=== PATIENT | male | born 1960 | race Two or more races ===

== ENCOUNTER → 2020-11-07 | Outpatient (BNVA) | payer MEDICARE, MEDICAID, SELFPAY | PROVIDERS: PCP Internal Medicine; Visit Provider Surgery | DX: D17.1 Benign lipomatous neoplasm of skin and subcutaneous tissue of trunk (principal) | CPT/HCPCS: 99202 ==

== ENCOUNTER 2020-11-21 07:38 | Outpatient (REF) | payer MEDICARE, MEDICAID, SELFPAY ==
[2020-11-21 07:22] VITALS: BP 179/91; PULSE 87; TEMP 37.2; O2SAT 94; BMI 24.4
--- NOTE | 2020-11-21 09:41 | MHC.SHP ---
Pre-Procedural Eval Section A The patient is an INPATIENT: No Changes since office visit: Yes Patient answered all questions; No Cold of Flu in the past 2 weeks, No New Medical Problems and No Changes in Medication The History & Physical has been completed within 30 days and I have reviewed it.: Yes Section B Chief Complaint: Lipoma of abdominal wall Allergies: Allergies Allergy/AdvReac Type Severity Reaction Status Date / Time levofloxacin [From Levaquin] Allergy Severe Swelling Verified 11/07/20 11:00 in the Joints ciprofloxacin [From Cipro] Allergy Mild Unknown Verified 11/07/20 11:00 Plan Diagnosis/Plan: Unchanged I have reviewed the history and physical and performed a pertinent physical examination on my patient. No changes have occurred unless specified.
--- NOTE | 2020-11-21 09:41 | W.PM.OPN ---
Operative Note Operative Note Date of Service: 11/21/20 Narrative: Preoperative diagnosis: Lipoma x4 left abdomen Postoperative diagnosis: Same Procedure: Excision of lipoma x4 left abdomen Surgeon: Arnaud Kamara MD Anesthesia: Local Indications for procedure: A 60-year-old male patient with for palpable soft tissue masses located in the left abdomen laterally which on palpation appear consistent with lipomas. Operative findings: Patient was found to have multiple soft tissue masses consistent with lipomas the largest measuring approximately 4 cm, the remaining 3 measuring 2 cm each. Specimen: Lipoma x4 left abdomen Estimated blood loss: 5 mL Complications: None Procedure details: Patient was brought to the minor surgery suite and placed in a right lateral decubitus position. Informed consent was confirmed in the site of surgery confirmed by the patient in the left abdomen. Skin was prepped with Betadine and draped in sterile fashion. Local anesthesia consisting of 1% lidocaine with epinephrine was infiltrated around each of the lesions. Starting from the top lesion a transverse incision was created with the 15 blade carried out through subcutaneous tissue. Blunt dissection was then used to dissect the lipoma from the surrounding subcutaneous tissue. Attention was then directed to the 2nd through 4th lipomas in each was infiltrated with local anesthesia, incised with the 15 blade, and a lipoma dissected free with a hemostat. Pressure was held on all 4 incisions to maintain hemostasis. Subcutaneous tissue was reapproximated using interrupted 4 0 Polysorb suture. Skin was then closed in all incisions using a subcuticular 4 0 Polysorb suture. Steri-Strips 2 x 2 gauze and Tegaderm were then applied. Patient tolerated the procedure well. He was discharged home in stable condition.
--- NOTE | 2020-11-21 09:45 | PM.OP ---
Brief Operative Note Date of Service: 11/21/20 Pre-op diagnosis: Lipoma x4 left abdomen Post-op diagnosis: same Procedure: Excision of lipoma x4 left abdomen Implants: None Surgeon: Arnaud Kamara MD Anesthesia: local Estimated blood loss (mL): 5 Pathology: other (Lipoma x4 left abdomen) Condition: stable Disposition: other (Home)
== END 2020-11-21 07:39 | disposition home or self-care (01) ==
LOC: HO.MS 07:38
PROVIDERS: PCP Internal Medicine; Visit Provider Surgery
PROC: (CPT 22903; principal; 2020-11-21 08:00)
DX: D17.5 Benign lipomatous neoplasm of intra-abdominal organs (principal); J44.9 Chronic obstructive pulmonary disease, unspecified; Z88.1 Allergy status to other antibiotic agents
CPT/HCPCS: 22903; 22902 ×3; 88304

== ENCOUNTER → 2020-11-30 09:43 | Outpatient (BNVA) | payer MEDICARE, MEDICAID, SELFPAY | PROVIDERS: PCP Internal Medicine; Visit Provider Surgery | DX: D17.1 Benign lipomatous neoplasm of skin and subcutaneous tissue of trunk (principal) | CPT/HCPCS: 99212 ==

== ENCOUNTER → 2020-12-10 10:37 | Outpatient (BNVA) | payer MEDICARE, MEDICAID, SELFPAY | PROVIDERS: PCP Internal Medicine; Visit Provider Hospitalist | DX: J43.2 Centrilobular emphysema (principal); R06.00 Dyspnea, unspecified; M54.5 Low back pain; G89.29 Other chronic pain | CPT/HCPCS: 99212 ==

== ENCOUNTER → 2021-03-05 13:01 | Outpatient (BNVA) | payer MEDICARE, MEDICAID, SELFPAY | PROVIDERS: PCP Internal Medicine; Visit Provider Surgery | DX: D17.9 Benign lipomatous neoplasm, unspecified (principal) | CPT/HCPCS: 99212 ==

== ENCOUNTER 2021-03-26 07:45 | Outpatient (REF) | payer MEDICARE, MEDICAID, SELFPAY ==
[2021-03-26 07:52] VITALS: BMI 22.4
[2021-03-26 07:53] VITALS: BP 122/90; PULSE 87; RESP 16; TEMP 36.6; O2SAT 94
[2021-03-26 08:35] VITALS: BP 133/68; PULSE 95; RESP 16; O2SAT 96
--- NOTE | 2021-04-10 16:18 | P.OP_ITS ---
Operative Note Operative Note Date of Service: 03/26/21 Narrative: Preoperative diagnosis: Lipoma left upper back Postoperative diagnosis: Same Procedure: Excision of lipoma left upper back Surgeon: Arnaud Kamara MD Security Sales Consultant: No physician Anesthesia: Local Indications for procedure: 60-year-old male with a previous history of lipomas presenting with enlarging lipoma of the left upper back. He also reported of the lipoma of the left lateral thigh but the time of surgery was not able to feel it any further. Operative findings: 3 cm round lipoma of the left upper back Specimen: Lipoma left upper back Estimated blood loss: 2 mL Complications: None Procedure details: Patient was brought to the minor surgery suite and placed in a right lateral decubitus position. The site of surgery was confirmed in the left upper back. After assuring informed consent the skin was prepped with Betadine and draped in a sterile fashion. Local anesthesia was infiltrated around the lipoma. Transverse incision was then made with a scalpel carried out through subcutaneous tissue. The lipoma was then dissected free using a combination of sharp and blunt dissection. Lipoma was removed and sent to pathology for further examination. Dermis and subcutaneous tissue was then reapproximated using interrupted 3-0 Polysorb sutures. Skin was closed using a running subcuticular 4 0 Polysorb suture. Steri-Strips, 2 x 2 gauze and Tegaderm were then applied. The patient tolerated the procedure well. He was discharged to home in stable condition.
== END 2021-03-26 07:46 | disposition home or self-care (01) ==
LOC: HO.MS 07:45
PROVIDERS: PCP Internal Medicine; Visit Provider Surgery
PROC: (CPT 21931; principal; 2021-03-26 08:00)
DX: D17.1 Benign lipomatous neoplasm of skin and subcutaneous tissue of trunk (principal); J44.9 Chronic obstructive pulmonary disease, unspecified; Z90.49 Acquired absence of other specified parts of digestive tract
CPT/HCPCS: 21931; 88304

== ENCOUNTER 2021-06-12 09:00 | Outpatient (REF) | payer MEDICARE, MEDICAID, SELFPAY ==
--- NOTE | 2021-06-12 10:21 | PFT_ITS ---
FLOWS: FEV1 of 30% of predicted at 0.87 L. FVC 64% of predicted at 2.44 L. FEV1 to FVC ratio of 0.35. Positive bronchodilator response. LUNG VOLUMES: Total lung capacity 111% of predicted at 6.43 L. Residual volume 213% of predicted at 4.07 L. Slow vital capacity 61% of predicted at 2.36 L. Expiratory reserve volume 58% of predicted at 0.60 L. Diffusion capacity is moderately decreased. IMPRESSION: Very severe obstructive ventilatory defect with positive bronchodilator response. Increased residual volume suggests air trapping. Decreased diffusion capacity suggests emphysema. MD XUAN Boykin/MODL / [id number]
== END 2021-06-12 09:01 | disposition home or self-care (01) ==
LOC: HO.RESP 09:00
PROVIDERS: PCP Internal Medicine; Visit Provider Hospitalist
DX: J43.2 Centrilobular emphysema (principal); M54.5 Low back pain; R91.8 Other nonspecific abnormal finding of lung field; G89.29 Other chronic pain
CPT/HCPCS: 94060; 94727; 94729; 99212

== ENCOUNTER → 2021-12-03 10:10 | Outpatient (BNVA) | payer MEDICARE, MEDICAID, SELFPAY | PROVIDERS: PCP Internal Medicine; Visit Provider Surgery | DX: D17.1 Benign lipomatous neoplasm of skin and subcutaneous tissue of trunk (principal) | CPT/HCPCS: 99212 ==

== ENCOUNTER 2021-12-30 12:37 | Outpatient (REF) | payer MEDICARE, MEDICAID, SELFPAY ==
--- NOTE | ~2021-12-30 | US_ITS ---
EXAMINATION: US CHEST CLINICAL INFORMATION: Soft tissue swelling in the midline over the spine. COMPARISON: None TECHNIQUE: Routine imaging over the bony prominences was performed where patient complains of mass. FINDINGS: Limited ultrasound imaging reveals no focal mass or fluid collection. The bony prominence from the patient is likely prominent spinous process. US/US chest IMPRESSION: No focal mass or fluid collection seen adjacent to the prominent spinous process where patient complains of pain and mass.
== END 2021-12-30 12:38 | disposition home or self-care (01) ==
LOC: HO.US 12:37
PROVIDERS: PCP Internal Medicine; Visit Provider Surgery
DX: D17.1 Benign lipomatous neoplasm of skin and subcutaneous tissue of trunk (principal)
CPT/HCPCS: 76604

== ENCOUNTER → 2022-01-10 11:41 | Outpatient (BNVA) | payer MEDICARE, MEDICAID, SELFPAY | PROVIDERS: PCP Internal Medicine; Visit Provider Surgery | DX: D17.1 Benign lipomatous neoplasm of skin and subcutaneous tissue of trunk (principal) | CPT/HCPCS: 99212 ==

== ENCOUNTER 2022-01-22 09:29 | Outpatient (REF) | payer MEDICARE, MEDICAID, SELFPAY | END 2022-01-22 09:30 | disposition home or self-care (01) | LOC: CF 09:29 | PROVIDERS: PCP Internal Medicine; Visit Provider Hospitalist | DX: J40 Bronchitis, not specified as acute or chronic (principal); J43.2 Centrilobular emphysema; R06.00 Dyspnea, unspecified; R91.8 Other nonspecific abnormal finding of lung field; Z79.52 Long term (current) use of systemic steroids; Z87.891 Personal history of nicotine dependence | CPT/HCPCS: 87070; 87205; 99212 ==

== ENCOUNTER 2022-01-30 07:00 | Day surgery (SDC) | payer MEDICARE, MEDICAID, SELFPAY ==
--- NOTE | 2022-01-29 09:49 | HO.ANESPROP2 ---
Documented by User: Lara Washburn NP 01/29/22 09:58 HPI - Anesthesia Eval Consult details Narrative: 61yo M for Bronchoscopy Fiberoptic PMFSH Active Problems Active Problems: All Active Problems (Updated 01/22/22 @ 10:14 by Paulino Ba MD) Bronchitis (Acute) Lipoma of back (Acute) Pulmonary nodules (Acute) Lipoma (Acute) Back pain (Acute) Dyspnea (Acute) Lipoma of abdominal wall (Acute) COPD (chronic obstructive pulmonary disease) (Acute) Past Medical History Medical History (Updated 01/30/22 @ 07:32 by Teresa Dodson RN) Back pain Bronchitis COPD (chronic obstructive pulmonary disease) Dyspnea FH: bowel obstruction Pulmonary nodules Family History Family History Mother History of lung cancer Surgical History Surgical History History of hernia repair History of lung biopsy History of partial colectomy Social History Social History Alcohol intake: never Patient Tobacco Use Status: Former Tobacco user Tobacco use type: Cigarette Years Smoked: 15 years Have you been hit, kicked, punched, or otherwise hurt by someone within the past year? If so, by whom?: No Are you DNR?: No Advance Directives: No Advance Directives Information Provided: Yes Recently lost weight without trying: No Nutrition Risks: No Nutritional Risk Meds Allergies Allergy/AdvReac Type Severity Reaction Status Date / Time ciprofloxacin [From Cipro] Allergy Severe Redness Verified 01/22/22 09:44 on Face levofloxacin [From Levaquin] Allergy Severe Swelling Verified 01/22/22 09:44 in the Joints amoxicillin [From Amoxil] AdvReac Mild upset Verified 01/30/22 07:16 stomach Home Medications Medication Instructions Recorded Confirmed Last Taken Type Ca 600 mg-D3 20 mcg-mag oxide 50 tab PO 11/07/20 01/10/22 Unknown History eq-Lh-awygzv-manganese-boron tablet (Calcium 600-D3 Plus (mag-zinc)) cyclobenzaprine 10 mg tablet 10 mg PO BEDTIME 11/07/20 01/10/22 Unknown History gabapentin 400 mg capsule mg PO 11/07/20 01/10/22 Unknown History oxycodone 10 mg tablet mg PO 11/07/20 01/10/22 Unknown History pantoprazole 40 mg tablet,delayed 40 mg PO DAILY 11/07/20 01/10/22 Unknown History release betamethasone, augmented 0.05 % appl TOPICAL 06/12/21 01/10/22 Unknown History topical cream denosumab 60 mg/mL subcutaneous mg SUBCUT 06/12/21 01/10/22 Unknown History syringe (Prolia) docusate sodium 100 mg capsule 200 mg PO BID PRN 06/12/21 01/10/22 Unknown History lorazepam 1 mg tablet 1 mg PO TID PRN 06/12/21 01/10/22 Unknown History naproxen 500 mg tablet 500 mg PO BID PRN 06/12/21 01/10/22 Unknown History nystatin 100,000 unit/mL oral 5 ml PO QID 06/12/21 01/10/22 Unknown History suspension methadone 10 mg tablet 10 mg PO tab 12/03/21 01/10/22 Unknown History azithromycin 250 mg tablet mg PO 3XW tab 01/22/22 Unknown History cefdinir 300 mg capsule 300 mg PO BID 01/22/22 Unknown History doxycycline hyclate 100 mg capsule 100 mg PO BID 01/22/22 Unknown History prednisone 10 mg tablet 10 mg PO BID 01/22/22 Unknown History testosterone 20.25 mg/1.25 gram 2 pump TOPICAL DAILY 01/22/22 Unknown History (1.62 %) transdermal gel pump Exam Exam Date and Time: January 29, 2022 0949 Narrative Narrative: PFT 05/2021 IMPRESSION:? Very severe obstructive ventilatory defect with positive bronchodilator response.? Increased residual volume suggests air trapping.? Decreased diffusion capacity suggests emphysema. Assessment and Plan Assessment Anesthesia Assessment: Chart Reviewed Documented by User: Cl Caldwell MD 01/30/22 08:28 [facility] [place] Past Medical History Medical History (Updated 01/30/22 @ 07:32 by Teresa Dodson RN) Back pain Bronchitis COPD (chronic obstructive pulmonary disease) Dyspnea FH: bowel obstruction Pulmonary nodules Functional capacity: independent ambulation Family History Family History Mother History of lung cancer Family history of problems with anesthesia: No Surgical History Surgical History History of hernia repair History of lung biopsy History of partial colectomy History of Problems with Anesthesia: No Social History Social History Alcohol intake: never Patient Tobacco Use Status: Former Tobacco user Tobacco use type: Cigarette Years Smoked: 15 years Have you been hit, kicked, punched, or otherwise hurt by someone within the past year? If so, by whom?: No Are you DNR?: No Advance Directives: No Advance Directives Information Provided: Yes Recently lost weight without trying: No Nutrition Risks: No Nutritional Risk Meds Allergies Allergy/AdvReac Type Severity Reaction Status Date / Time ciprofloxacin [From Cipro] Allergy Severe Redness Verified 01/22/22 09:44 on Face levofloxacin [From Levaquin] Allergy Severe Swelling Verified 01/22/22 09:44 in the Joints amoxicillin [From Amoxil] AdvReac Mild upset Verified 01/30/22 07:16 stomach Home Medications Medication Instructions Recorded Confirmed Last Taken Type Ca 600 mg-D3 20 mcg-mag oxide 50 tab PO 11/07/20 01/10/22 Unknown History ke-Gt-qrjtgl-manganese-boron tablet (Calcium 600-D3 Plus (mag-zinc)) cyclobenzaprine 10 mg tablet 10 mg PO BEDTIME 11/07/20 01/10/22 Unknown History gabapentin 400 mg capsule mg PO 11/07/20 01/10/22 Unknown History oxycodone 10 mg tablet mg PO 11/07/20 01/10/22 Unknown History pantoprazole 40 mg tablet,delayed 40 mg PO DAILY 11/07/20 01/10/22 Unknown History release betamethasone, augmented 0.05 % appl TOPICAL 06/12/21 01/10/22 Unknown History topical cream denosumab 60 mg/mL subcutaneous mg SUBCUT 06/12/21 01/10/22 Unknown History syringe (Prolia) docusate sodium 100 mg capsule 200 mg PO BID PRN 06/12/21 01/10/22 Unknown History lorazepam 1 mg tablet 1 mg PO TID PRN 06/12/21 01/10/22 Unknown History naproxen 500 mg tablet 500 mg PO BID PRN 06/12/21 01/10/22 Unknown History nystatin 100,000 unit/mL oral 5 ml PO QID 06/12/21 01/10/22 Unknown History suspension methadone 10 mg tablet 10 mg PO tab 12/03/21 01/10/22 Unknown History azithromycin 250 mg tablet mg PO 3XW tab 01/22/22 Unknown History cefdinir 300 mg capsule 300 mg PO BID 01/22/22 Unknown History doxycycline hyclate 100 mg capsule 100 mg PO BID 01/22/22 Unknown History prednisone 10 mg tablet 10 mg PO BID 01/22/22 Unknown History testosterone 20.25 mg/1.25 gram 2 pump TOPICAL DAILY 01/22/22 Unknown History (1.62 %) transdermal gel pump Exam Airway Mallampati Class: II TM Dist: >3cm Neck ROM: Full Denture: Lower Partial: Upper Loose/Missing/Broken Teeth: Yes (Chipped upper teeth ) Heart: S1 S2 Lungs: b/l breath sounds Assessment and Plan Assessment Anesthesia Assessment: Anesthesia Plan Discussed Final Anesthetic Review Family History of Problems with Anesthesia: No History of Problems with Anesthesia: No NPO: Yes ASA Class: III Final Preanesthetic Review: Meds/Allgs Chart Reviewed, Consent Obtained/Reviewed and Anes Risks/Benef Reviewed Patient Risk: High Procedure Risk: Intermediate Anesthetic Plan Anesthetic Plan: GA Disposition: Standard PACU
[2022-01-30 06:04] VITALS: BMI 22.3
[2022-01-30 07:01] VITALS: BP 133/89; PULSE 101; RESP 19; TEMP 36.3; O2SAT 97
[2022-01-30] MEDS: Lactated Ringers 1,000 ML 100 ML IVCONT (07:34)
--- NOTE | 2022-01-30 07:54 | MHC.SHP ---
Pre-Procedural Eval Section A Date of Service: 01/30/22 The patient is an INPATIENT: No Changes since office visit: No Cold of Flu in the past 2 weeks, No New Medical Problems, No Changes in Medication and No Patient answered all questions The History & Physical has been completed within 30 days and I have reviewed it.: Yes Section B Chief Complaint: Other nonspecific abnormal finding of lung field Allergies: Allergies Allergy/AdvReac Type Severity Reaction Status Date / Time ciprofloxacin [From Cipro] Allergy Severe Redness Verified 01/22/22 09:44 on Face levofloxacin [From Levaquin] Allergy Severe Swelling Verified 01/22/22 09:44 in the Joints amoxicillin [From Amoxil] AdvReac Mild upset Verified 01/30/22 07:16 stomach Plan I have reviewed the history and physical and performed a pertinent physical examination on my patient. No changes have occurred unless specified.
[2022-01-30 08:45] VITALS: BP 129/79; PULSE 126; RESP 20; TEMP 36.5; O2SAT 100
[2022-01-30 08:50] VITALS: BP 125/104; PULSE 121; RESP 18; O2SAT 92
[2022-01-30 08:55] VITALS: BP 109/71; PULSE 122; RESP 18; O2SAT 92
--- NOTE | 2022-01-30 08:57 | PM.OP ---
Brief Operative Note Date of Service: 01/30/22 Pre-op diagnosis: Bronchitis Post-op diagnosis: same Procedure: bronchoscopy with brushings and washings Surgeon: Paulino Ba MD Anesthesia: GLMA Was an Junior Marketing Associate used for this Procedure?: No Estimated blood loss (mL): 0 Condition: stable Disposition: same day
[2022-01-30 09:00] VITALS: BP 110/78; PULSE 122; RESP 18; TEMP 36.7; O2SAT 94
[2022-01-30 09:12] VITALS: PULSE 119; RESP 18; O2SAT 93
--- NOTE | 2022-01-30 10:30 | OP_ITS ---
SURGEON: Paulino Ba MD PREOPERATIVE DIAGNOSIS: Bronchitis with significant mucus plugging and shortness of breath. POSTOPERATIVE DIAGNOSIS: Bronchitis. PROCEDURE PERFORMED: Bronchoscopy washings and brushings. ESTIMATED BLOOD LOSS: COMPLICATIONS: ANESTHESIA: LMA. ASSISTANTS: None. SPECIMENS: DESCRIPTION OF PROCEDURE: After the patient was adequately sedated with LMA in place, the flexible digital bronchoscope was inserted via the LMA to the level of the larynx. The larynx appeared to be inflamed. Red nodes were inflamed. The vocal cords moved symmetrically to the midline. After instilling additional lidocaine, the bronchoscope was then navigated to the level of the trachea. 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 The patient also had almost like a dislocated tracheal ring on the right side, which is of no significance. After instilling additional lidocaine, the bronchoscope was navigated to the entire tracheobronchial tree without any endobronchial lesions or masses. The patient did have some evidence of erythema suggesting of bronchitis with some mucus plugs bilaterally right more than left. [place] was introduced into the right lower lobe, where a micro brushings were then collected for Gram stain and culture. Subsequent to that, bronchial washings were collected from every segment removing plugs primarily on the right side and also on the left upper lobe to some degree. The washings were collected and sent for both microbiology and cytology. The airways were cleaned out. The patient tolerated the procedure well. The bronchoscope was then removed. The total endoscopic time approximately about 10 minutes. The patient tolerated the procedure well. Vital signs were stable. Patient was liberated from the LMA and ultimately he is awake, comfortable at this time. INTERPRETATION: Successful bronchoscopy with brushings and washings. MD MESERET Ellsworth/MODL / [id number]
== END 2022-01-30 09:28 | disposition home or self-care (01) ==
PROVIDERS: PCP Internal Medicine; Visit Provider Hospitalist
PROC: 0BJ08ZZ Inspection of Tracheobronchial Tree, Via Natural or Artificial Opening Endoscopic (ICD-10-PCS; CPT 31622; principal; 2022-01-30 08:00)
DX: J40 Bronchitis, not specified as acute or chronic (principal); R06.00 Dyspnea, unspecified; J44.9 Chronic obstructive pulmonary disease, unspecified; R91.8 Other nonspecific abnormal finding of lung field; Z87.01 Personal history of pneumonia (recurrent); Z99.81 Dependence on supplemental oxygen; Z79.899 Other long term (current) drug therapy; Z88.1 Allergy status to other antibiotic agents; Z87.891 Personal history of nicotine dependence
CPT/HCPCS: 31623; 87071; 87102; 87116; 87205; 88112; J0171; J2250; J2370; J2405; J3010

== ENCOUNTER → 2022-02-19 09:32 | Outpatient (BNVA) | payer MEDICARE, MEDICAID, SELFPAY | PROVIDERS: PCP Internal Medicine; Visit Provider Hospitalist | DX: J44.9 Chronic obstructive pulmonary disease, unspecified (principal); J45.50 Severe persistent asthma, uncomplicated; R91.8 Other nonspecific abnormal finding of lung field; Z79.899 Other long term (current) drug therapy | CPT/HCPCS: 99212 ==

== ENCOUNTER → 2022-03-20 09:50 | Outpatient (BNVA) | payer MEDICARE, MEDICAID, SELFPAY | PROVIDERS: PCP Internal Medicine; Visit Provider Hospitalist | DX: R91.8 Other nonspecific abnormal finding of lung field (principal); R06.00 Dyspnea, unspecified; R10.9 Unspecified abdominal pain; J40 Bronchitis, not specified as acute or chronic; J44.9 Chronic obstructive pulmonary disease, unspecified; J45.50 Severe persistent asthma, uncomplicated | CPT/HCPCS: 99212 ==

== ENCOUNTER → 2022-04-09 10:47 | Outpatient (BNVA) | payer MEDICARE, MEDICAID, SELFPAY | PROVIDERS: PCP Internal Medicine; Visit Provider Hospitalist | DX: R06.00 Dyspnea, unspecified (principal); J44.9 Chronic obstructive pulmonary disease, unspecified; J45.50 Severe persistent asthma, uncomplicated; R91.8 Other nonspecific abnormal finding of lung field; R10.9 Unspecified abdominal pain | CPT/HCPCS: 99212 ==

== ENCOUNTER 2022-07-16 10:57 | Outpatient (REF) | payer MEDICARE, MEDICAID, SELFPAY ==
[2022-07-16 11:17] LABS: MANUAL DIFF FLAG NO
[2022-07-16 11:41] LABS: Basophils Absolute Auto 0.1 X10*3/uL (0.0-0.2); Basophils Percent Auto 0.8 % (0-2); Eosinophils Absolute Auto 0.1 X10*3/uL (0.0-0.4); Eosinophils Percent Auto 1.2 % (0-4); Hematocrit 52.2 % (42.0-52.0); Hemoglobin 17.2 g/dl (14.0-18.0); Imm Gran Abs Auto 0.03 X10*3/uL (0.00-0.03); Imm Gran Pct Auto 0.3 % (0.0-0.4); Lymphocytes Absolute Auto 1.5 X10*3/uL (1.2-4.9); Lymphocytes Percent Auto 14.5 % (20-40); Mean Corpuscular Hemoglobin 30.8 pg (27.0-33.0); Mean Corpuscular Volume 93.4 fL (80.0-98.0); Mean Platelet Volume 9.7 fL (9.4-12.4); Monocytes Absolute Auto 0.6 X10*3/uL (0.1-1.2); Monocytes Percent Auto 5.6 % (2-11); Neutrophils Percent Auto 77.6 % (45-73); Platelet Count 351 X10*3/uL (160-400); Red Blood Count 5.59 X10*6/uL (4.60-5.80); Red Cell Distribution Width 13.7 % (11.0-16.0); White Blood Count 10.3 X10*3/uL (4.8-10.8)
[2022-07-16 12:28] LABS: Erythrocyte Sedimentation Rate 2 MM/HR (0-15)
[2022-07-17 04:24] LABS: Theophylline 13.3 MG/L ((10-20))
[2022-07-18 14:06] LABS: Alpha 1 Anti-trypsin 159 mg/dL (83-199)
== END 2022-07-16 10:58 | disposition home or self-care (01) ==
LOC: HO.LAB 10:57
PROVIDERS: PCP Internal Medicine; Visit Provider Hospitalist
DX: R06.00 Dyspnea, unspecified (principal); R91.8 Other nonspecific abnormal finding of lung field; J44.9 Chronic obstructive pulmonary disease, unspecified; J45.50 Severe persistent asthma, uncomplicated; Z79.899 Other long term (current) drug therapy
CPT/HCPCS: 36415; 80198; 82103; 85025; 85652; 86003; 99212

== ENCOUNTER 2022-08-01 10:56 | Outpatient (REF) | payer MEDICARE, MEDICAID, SELFPAY ==
--- NOTE | ~2022-08-01 | CT_ITS ---
EXAMINATION: CT CHEST WITHOUT CONTRAST CLINICAL INFORMATION: Pulmonary nodules. COMPARISON: None. TECHNIQUE: Multidetector volumetric CT imaging of the chest was done. Axial MIP volume rendering provided. Sagittal and coronal reformatted images were obtained. This CT examination was performed using dose optimization techniques as appropriate, variously including the following: *Automated exposure control *Adjustment of mA and/or kV according to patient size (this includes techniques or standardized protocols for targeted exams where dose is matched to indication/reason for exam; i.e. 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 LUNGS: There is diffuse emphysematous changes of both lungs without acute pneumonic process. There are several scattered nodules in right upper lobe measurin mm, axial image 271/9, 42/9, ill-defined densities in the right upper lobe/nodules measuring 4 mm, axial image 50/9, 3 mm ill-defined opacity left lower lobe and mild tenting of major fissure, axial image 256/6, 5 mm nodule right lower lobe, axial image 292/6, several minute calcifications in the right lower lobe, axial image 370/6. There is thick atelectasis or scarring in the left lower lobe, axial image 40/4. MEDIASTINUM: The thyroid lobe is symmetrical and normal. Central trachea and the bronchi are widely patent. The heart size and the great vessels are normal caliber. Shotty lymph nodes are seen in the mediastinum. CORONARY ARTERY CALCIFICATION: None visualized on this study. PLEURA: There is no pleural effusion. No pleural mass or thickening. AXILLA: Small shotty lymph nodes are seen in the left axilla. UPPER ABDOMEN: Visualized liver, spleen, pancreas and bilateral adrenal glands are unremarkable. 2 mm nonobstructive radiopaque calculi in the upper pole of the left kidney. OSSEOUS STRUCTURES: There are multiple thoracic compression fractures of indeterminate age. If patient has pain could consider bone scan. T6, T7, T9, T12 and L2 vertebra. CT/CT chest wo IV con IMPRESSION: Diffuse centrilobular emphysema with multiple small pulmonary nodules, some of which are round and some ill defined. Largest measuring 4 mm. Ill-defined densities could be old residual inflammatory process or scar. There is a 7mm calcification in the right lower lobe. There is chronic scarring or atelectasis at the left lung base. Recommend follow up in one year as per Fleischner guidelines. Fleischner guidelines were followed.
== END 2022-08-01 10:57 | disposition home or self-care (01) ==
LOC: HO.CT 10:56
PROVIDERS: Visit Provider Hospitalist
DX: R91.8 Other nonspecific abnormal finding of lung field (principal)
CPT/HCPCS: 71250

== ENCOUNTER 2022-08-07 10:04 | Outpatient (REF) | payer MEDICARE, MEDICAID, SELFPAY ==
--- NOTE | 2022-08-07 13:57 | PFT_ITS ---
FLOWS: FEV1 28% of predicted at 0.80 L. FVC 68% of predicted at 2.57 L. FEV1 to FVC ratio of 0.31. No bronchodilator response except in small to medium airways. LUNG VOLUMES: Total lung capacity 99% of predicted at 5.78 L. Residual volume 173% of predicted at 3.37 L. Slow vital capacity 62% of predicted at 2.42 L. Expiratory reserve volume 57% of predicted at 0.57 L. Diffusion capacity is mildly decreased. In comparison to pulmonary function test from May of 2021, FEV1, FVC, SVC, and ERV have been without significant changes; total lung capacity has decreased by 0.65 L; residual volume has decreased by 0.70 L; diffusion capacity has improved by 5.66 mL/minute per mmHg. IMPRESSION: Very severe obstructive ventilatory defect with no bronchodilator response except in small to medium airways. Increased residual volume suggests air trapping. Decreased diffusion capacity suggests emphysema. MD XUAN Boykin/MODL / [id number]
== END 2022-08-07 10:05 | disposition home or self-care (01) ==
LOC: HO.RESP 10:04
PROVIDERS: PCP Internal Medicine; Visit Provider Hospitalist
DX: R91.8 Other nonspecific abnormal finding of lung field (principal); J44.9 Chronic obstructive pulmonary disease, unspecified; Z79.899 Other long term (current) drug therapy
CPT/HCPCS: 94060; 94727; 94729

== ENCOUNTER → 2022-08-26 09:40 | Outpatient (BNVA) | payer MEDICARE, MEDICAID, SELFPAY | PROVIDERS: PCP Internal Medicine; Visit Provider Hospitalist | DX: J43.2 Centrilobular emphysema (principal); R06.00 Dyspnea, unspecified; R91.8 Other nonspecific abnormal finding of lung field | CPT/HCPCS: 99212 ==

== ENCOUNTER → 2022-10-31 09:51 | Outpatient (BNVA) | payer MEDICARE, MEDICAID, SELFPAY | PROVIDERS: PCP Internal Medicine; Visit Provider Internal Medicine Gastroenterology | DX: R10.9 Unspecified abdominal pain (principal); I87.1 Compression of vein | CPT/HCPCS: 99202 ==

== ENCOUNTER → 2022-11-21 13:03 | Outpatient (BNVA) | payer MEDICARE, MEDICAID, SELFPAY | PROVIDERS: PCP Internal Medicine; Visit Provider Hospitalist | DX: J43.2 Centrilobular emphysema (principal); R06.00 Dyspnea, unspecified; R91.8 Other nonspecific abnormal finding of lung field; Z79.899 Other long term (current) drug therapy | CPT/HCPCS: Q3014 ==

== ENCOUNTER 2022-11-26 09:32 | Outpatient (REF) | payer MEDICARE, MEDICAID, SELFPAY ==
[2022-11-26 11:18] LABS: MANUAL DIFF FLAG NO
[2022-11-26 11:22] LABS: Basophils Absolute Auto 0.1 X10*3/uL (0.0-0.2); Basophils Percent Auto 0.3 % (0-2); Eosinophils Absolute Auto 0.1 X10*3/uL (0.0-0.4); Eosinophils Percent Auto 0.6 % (0-4); Hematocrit 51.6 % (42.0-52.0); Hemoglobin 17.2 g/dl (14.0-18.0); Imm Gran Abs Auto 0.06 X10*3/uL (0.00-0.03); Imm Gran Pct Auto 0.3 % (0.0-0.4); Lymphocytes Absolute Auto 1.2 X10*3/uL (1.2-4.9); Lymphocytes Percent Auto 6.8 % (20-40); Mean Corpuscular HGB Conc 33.3 g/dl (31.0-36.0); Mean Platelet Volume 9.9 fL (9.4-12.4); Monocytes Absolute Auto 0.8 X10*3/uL (0.1-1.2); Monocytes Percent Auto 4.5 % (2-11); Neutrophils Absolute Auto 15.8 x10*3/uL (2.0-8.3); Neutrophils Percent Auto 87.5 % (45-73); Platelet Count 365 X10*3/uL (160-400); Red Blood Count 5.55 X10*6/uL (4.60-5.80); Red Cell Distribution Width 14.5 % (11.0-16.0)
[2022-11-26 11:42] LABS: Venous Blood Gas Refer to POC result
[2022-11-26 11:45] LABS: VBG pCO2 34 mmHg; VBG pH 7.45 (7.32-7.43)
[2022-11-26 11:46] LABS: VBG HCO3 24 mmol/L (22-26); VBG pO2 80 mmHg
[2022-11-26 12:10] LABS: Influenza A PCR NEGATIVE (Negative); Influenza B PCR NEGATIVE (Negative); Resp Syncy Virus RNA Qual PCR NEGATIVE (Negative); SARS COV2 PCR INHOUSE NEGATIVE (Negative)
[2022-11-26 12:25] LABS: Erythrocyte Sedimentation Rate 2 MM/HR (0-15)
== END 2022-11-26 09:33 | disposition home or self-care (01) ==
LOC: HO.LAB 09:32
PROVIDERS: PCP Internal Medicine; Visit Provider Hospitalist
DX: J44.1 Chronic obstructive pulmonary disease with (acute) exacerbation (principal); R91.8 Other nonspecific abnormal finding of lung field; Z99.81 Dependence on supplemental oxygen; Z87.891 Personal history of nicotine dependence; Z20.822 Contact with and (suspected) exposure to COVID-19
CPT/HCPCS: 0241U; 36415; 80198; 82803; 85025; 85652; 94640; 96372; 99212; J2930

== ENCOUNTER 2022-12-23 10:40 | Outpatient (REF) | payer MEDICARE, MEDICAID, SELFPAY ==
[2022-12-23 11:35] LABS: MANUAL DIFF FLAG NO
[2022-12-23 11:40] LABS: Venous Blood Gas Refer to POC result
[2022-12-23 12:31] LABS: VBG Base Excess 3.2 mmol/L; VBG HCO3 27 mmol/L (22-26); VBG pCO2 38 mmHg; VBG pH 7.45 (7.32-7.43); VBG pO2 87 mmHg
[2022-12-23 12:32] LABS: Basophils Absolute Auto 0.1 X10*3/uL (0.0-0.2); Basophils Percent Auto 1.1 % (0-2); Eosinophils Absolute Auto 0.2 X10*3/uL (0.0-0.4); Eosinophils Percent Auto 3.4 % (0-4); Hematocrit 47.2 % (42.0-52.0); Hemoglobin 15.7 g/dl (14.0-18.0); Imm Gran Abs Auto 0.01 X10*3/uL (0.00-0.03); Imm Gran Pct Auto 0.2 % (0.0-0.4); Lymphocytes Absolute Auto 1.5 X10*3/uL (1.2-4.9); Lymphocytes Percent Auto 23.9 % (20-40); Mean Corpuscular HGB Conc 33.3 g/dl (31.0-36.0); Mean Corpuscular Hemoglobin 29.8 pg (27.0-33.0); Mean Corpuscular Volume 89.6 fL (80.0-98.0); Mean Platelet Volume 10.5 fL (9.4-12.4); Monocytes Absolute Auto 0.7 X10*3/uL (0.1-1.2); Monocytes Percent Auto 11.6 % (2-11); Neutrophils Absolute Auto 3.7 x10*3/uL (2.0-8.3); Neutrophils Percent Auto 59.8 % (45-73); Platelet Count 364 X10*3/uL (160-400); Red Blood Count 5.27 X10*6/uL (4.60-5.80); Red Cell Distribution Width 13.5 % (11.0-16.0); White Blood Count 6.1 X10*3/uL (4.8-10.8)
[2022-12-23 13:10] LABS: Digoxin 1.8 ng/mL (0.8-2.0)
[2022-12-23 13:13] LABS: Erythrocyte Sedimentation Rate 53 MM/HR (0-15)
[2022-12-23 13:31] LABS: Anion Gap 13 (12-20); Blood Urea Nitrogen 12 mg/dL (9-16); Calcium 9.5 mg/dL (8.4-10.2); Carbon Dioxide 31 mmol/L (22-29); Chloride 100 mmol/L (96-108); Estimated Glomerular Filt Rate > 60; Glucose Random 112 mg/dL (60-115); Potassium 4.5 mmol/L (3.3-5.1); Sodium 139 mmol/L (135-145)
[2022-12-23 13:53] LABS: Cortisol Random 7.6 ug/dL
[2022-12-24 04:22] LABS: Theophylline < 0.8 MG/L ((10-20))
== END 2022-12-23 10:41 | disposition home or self-care (01) ==
LOC: HO.LAB 10:40
PROVIDERS: PCP Internal Medicine; Visit Provider Hospitalist
DX: R10.9 Unspecified abdominal pain (principal); J45.50 Severe persistent asthma, uncomplicated; J44.9 Chronic obstructive pulmonary disease, unspecified; R06.00 Dyspnea, unspecified; R91.8 Other nonspecific abnormal finding of lung field; I42.9 Cardiomyopathy, unspecified; Z79.899 Other long term (current) drug therapy
CPT/HCPCS: 36415; 80048; 80162; 80198; 82533; 82803; 85025; 85652; 99212

== ENCOUNTER 2022-12-31 10:13 | Outpatient (REF) | payer MEDICARE, MEDICAID, SELFPAY ==
--- NOTE | ~2022-12-31 | US_ITS ---
EXAMINATION: US DOPPLER AORTA CLINICAL INFORMATION: Outside CTA with microvascular syndrome, abdominal pain COMPARISON: None available. TECHNIQUE: Ultrasound along with color Doppler imaging and spectral analysis was performed of the abdominal aorta and branch arteries including the celiac artery, superior mesenteric artery, inferior mesenteric artery, splenic artery, hepatic artery. Evaluation was also performed of the left renal veins. FINDINGS: Abdominal aorta is normal in caliber with normal color flow. The proximal aorta measures a velocity of 175 cm/s. Aortic distal to the SMA measures velocity of 126 cm/s Celiac artery: Supine inspiration: 140 cm/s Supine expiration: 181 cm/s Erect: Not seen due to overlying bowel gas Superior mesenteric artery: Proximal: 178 cm/s Mid: 124 cm/s Distal: 114 cm/s Inferior mesenteric artery: 124 cm/s Splenic artery: 172 cm/s Hepatic artery: 179 cm/s Left renal vein: There is compression with otherwise patent color flow and normal duplex venous waveforms US/US duplex arterial venous comp IMPRESSION: Normal arterial Doppler evaluation of the mesenteric arteries. No evidence of mesenteric arterial occlusion or hemodynamically significant stenosis.
== END 2022-12-31 10:14 | disposition home or self-care (01) ==
LOC: HO.US 10:13
PROVIDERS: PCP Internal Medicine; Visit Provider Internal Medicine Gastroenterology
DX: R10.9 Unspecified abdominal pain (principal); I10 Essential (primary) hypertension; I87.1 Compression of vein
CPT/HCPCS: 93975

== ENCOUNTER → 2023-01-08 09:57 | Outpatient (BNVA) | payer MEDICARE, MEDICAID, SELFPAY | PROVIDERS: PCP Internal Medicine; Visit Provider Hospitalist | DX: J44.0 Chronic obstructive pulmonary disease with (acute) lower respiratory infection (principal); R91.8 Other nonspecific abnormal finding of lung field; I42.9 Cardiomyopathy, unspecified; R06.00 Dyspnea, unspecified | CPT/HCPCS: 99212 ==

== ENCOUNTER → 2023-02-23 10:36 | Outpatient (BNVA) | payer MEDICARE, MEDICAID, SELFPAY | PROVIDERS: PCP Internal Medicine; Visit Provider Internal Medicine Gastroenterology | DX: K59.00 Constipation, unspecified (principal); R10.33 Periumbilical pain | CPT/HCPCS: 99212 ==

== ENCOUNTER → 2023-03-17 10:07 | Outpatient (BNVA) | payer MEDICARE, MEDICAID, SELFPAY | PROVIDERS: PCP Internal Medicine; Visit Provider Hospitalist | DX: J44.0 Chronic obstructive pulmonary disease with (acute) lower respiratory infection (principal); R06.00 Dyspnea, unspecified; R91.8 Other nonspecific abnormal finding of lung field; I42.9 Cardiomyopathy, unspecified; Z79.899 Other long term (current) drug therapy; Z99.81 Dependence on supplemental oxygen | CPT/HCPCS: 99212 ==

== ENCOUNTER 2023-04-13 11:21 | Outpatient (REF) | payer MEDICARE, MEDICAID, SELFPAY ==
--- NOTE | ~2023-04-13 | XR_ITS ---
EXAMINATION: XR KNEE AP STANDING CLINICAL INFORMATION: Chronic bilateral knee pain. COMPARISON: None available. TECHNIQUE: AP bilateral standing view of the knees was obtained. FINDINGS: No fracture or joint effusion. Alignment is anatomic. Joint spaces are maintained. There is chondrocalcinosis. XR/XR knee standing BI IMPRESSION: 1. No fracture or dislocation is seen bilaterally. 2. The bilateral lateral and medial joint space compartments are well-maintained. 3. There is chondrocalcinosis, which can be associated with CPPD.
--- NOTE | ~2023-04-13 | XR_ITS ---
EXAMINATION: XR CHEST 2 VIEWS CLINICAL INFORMATION: Bronchitis. COMPARISON: CT chest dated 08/01/2022. TECHNIQUE: Frontal and lateral views of the chest were obtained. FINDINGS: The heart, great vessels, pulmonary vasculature and mediastinum are normal. The lungs show no focal infiltrate, effusion or pneumothorax. There is hyperinflation. There is blunting of the bilateral lateral costophrenic angles. There is no acute osseous abnormality. There are multiple chronic thoracic compression fractures. There are old, healed bilateral rib fractures. XR/XR chest 2V IMPRESSION: No active cardiopulmonary disease. Findings are consistent with COPD.
== END 2023-04-13 11:22 | disposition home or self-care (01) ==
LOC: HO.XRAY 11:21
PROVIDERS: PCP Internal Medicine; Visit Provider Internal Medicine
DX: M79.641 Pain in right hand (principal); M79.642 Pain in left hand; J40 Bronchitis, not specified as acute or chronic; M54.2 Cervicalgia; M79.605 Pain in left leg; M79.604 Pain in right leg; M81.0 Age-related osteoporosis without current pathological fracture; M47.26 Other spondylosis with radiculopathy, lumbar region; Z79.891 Long term (current) use of opiate analgesic; Z79.899 Other long term (current) drug therapy
CPT/HCPCS: 71046; 73565; 99202

== ENCOUNTER → 2023-04-16 11:23 | Outpatient (BNVA) | payer MEDICARE, MEDICAID, SELFPAY | PROVIDERS: PCP Internal Medicine; Visit Provider Surgery Vascular Surgery | DX: I87.1 Compression of vein (principal) | CPT/HCPCS: 99202 ==

== ENCOUNTER 2023-05-20 09:49 | Outpatient (REF) | payer MEDICARE, MEDICAID, SELFPAY ==
--- NOTE | ~2023-05-20 | XR_ITS ---
EXAMINATION: XR HAND, RIGHT CLINICAL INFORMATION: Pain right hand Attention base of the thumb COMPARISON: None available. TECHNIQUE: PA, lateral, and oblique views of the right hand. FINDINGS: The bones are intact no fracture. Alignment is anatomic. There is marked radial deviation of the first metacarpal. There is severe degenerative change of the first metacarpophalangeal joint with subluxation of the proximal phalanx of the thumb with respect to the head of the first metacarpal. No erosions or soft tissue calcifications. XR/XR hand RT min 3V IMPRESSION: Marked radial deviation of the first metacarpal. Severe degenerative change of the first metacarpophalangeal joint with subluxation of the proximal phalanx of the thumb.
== END 2023-05-20 09:50 | disposition home or self-care (01) ==
LOC: HO.HOSX 09:49
PROVIDERS: PCP Internal Medicine; Visit Provider Orthopaedic Surgery
DX: M19.041 Primary osteoarthritis, right hand (principal)
CPT/HCPCS: 73130; 99202

== ENCOUNTER 2023-05-20 09:49 | Outpatient (AMB) | payer MEDICARE, MEDICAID, SELFPAY ==
--- NOTE | 2023-05-20 10:25 | A.OFFVIS_ITS ---
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 States his right is worse. No injury he can recall. Pain started 30 yrs ago and it has gotten worse and worse with time. Pain is mainly on his 1st MCP. Pain is triggered by picking up a coffee cup, pinching or grabbing movement. Also has numbness and tingling in his hands which increases at night time. Hx of neuropathy, osteoporosis & 4 compression fx in lower back. 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 He complains of pain with pinching and gripping activities, including holding a golf club or picking up a cup. He says his pain has been present for ~30 years. He also complains of bilateral hand numbness, intermittent & worse at night. He has a Hx of neuropathy, osteoporosis & 4 compression fx in his lower back. He follows with Dr. Willams in Pain Management for his back pain. He says he dislocated his right thumb when he was playing football in highschool, he did not seek treatment for this and instead set this himself. He says he is clean of all drugs and alcohol, he has been clean for 32 years now. He says he has some cardiac issues, which he is managing with medication. He has a Hx of cardiomyopathy, uses Oxygen at home due to COPD, and is taking 10mg Methadone for his back pain He follows with a Cardiology PA at [facility] He enjoys riding his motorcycle and would like to continue doing this before he has surgery [facility] Medical History Asthma Asthma Asthma-COPD overlap syndrome Back pain Bronchitis Chronic neck and back pain COPD (chronic obstructive pulmonary disease) Dyspnea FH: bowel obstruction Pulmonary nodules Surgical History History of esophagogastroduodenoscopy (EGD) History of hernia repair History of lung biopsy History of partial colectomy Hx of colonoscopy Family History Mother History of lung cancer Social History Alcohol intake: never Patient Tobacco Use Status: Former Tobacco user Tobacco use type: Cigarette Years Smoked: 15 years Review of Systems Const All systems reviewed & are unremarkable except as noted in HPI and below Physical Exam Vital Signs: BMI result Body Mass Index 19.6 Const General: cooperative, healthy appearing and no acute distress Orientation/consciousness: patient oriented x3 HEENT Head: Yes normocephalic and Yes atraumatic Eyes EOM: EOMs intact bilaterally Resp Effort & Inspection: normal respiratory effort and able to speak in complete sentences Cardio Jugular venous distension: no JVD Skin General skin exam: turgor normal Rashes: no rashes Neuro General: patient oriented x3 Extrem Other: Evaluation of Right Upper Extremity: The patient is alert, oriented, and in no acute distress Neuro: Median, Ulnar, Radial nerves motor and sensory grossly intact Vascular: Cap refill brisk ROM: He can make a fist and extend all his digits Smooth wrist ROM Tenderness over the right thumb MCP joint with significant ulnar deviation Incompetent RCL with ~60 degrees ulnar deviation at the MCP joint This can be reduced to 0 degrees of deviation Minimal active or passive flexion & extension at the MCP joint active FPL flex and extend Good flex and extend at the DIP joint with MCP joint positioned anatomically at 0 degrees of deviation ~10-15 flexion/extension of MCP joint when it is reduced Good ROM at CMC joint Skin: No lacerations or abrasions. General: No Ecchymosis. No Erythema or evidence of infection. Radiographs: 3 views of the right hand, with attention to the thumb, were taken and viewed by me today in clinic. They show no fractures or dislocations. 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 Right thumb posttraumatic MCP joint arthritis, with significant ulnar deviation Following an old RCL injury from high school football I educated him about this condition I discussed operative and non-operative treatment options The patient would like to proceed with surgery The risks and benefits of operative treatment were discussed with the patient and the patient wishes to proceed with surgery. These risks include, but are not limited to risk of damage to blood vessels, nerves, tendons, infection, recurrence, incomplete relief of preoperative symptoms, persistent pain, possible need for further surgery and the risks associated with regional blocks and anesthesia. The plan is to take the patient to the operating room sometime in the next few weeks for the following procedures: 1. Right thumb MCP joint arthrodesis, under general All of the preoperative paperwork including the consent was filled out today. All the patient's questions were answered. The patient understands that they will be contacted by our neurosurgery spine physician soon to schedule this procedure. He would like this sometime in August so he can enjoy his summer activities He denies Diabetes, blood thinners, asthma, kidney issues He has a Hx of Cardiomyopathy and COPD. He says these are well-controlled with medication. He will need cardiac clearance prior to surgery. He follows with a Cardiology PA at [facility] He follows with Pain Management, and takes 10mg Methadone for his back pain. 2. Bilateral hand numbness and tingling I have ordered an EMG nerve conduction study. We can review this when he is seen to again discussed the above surgery sometime in the early fall. Scribed for Milady Nolasco MD by Gume Lopez, registered medical assistant, on 05/20/23 at 11:05 AM, EST. 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
[2023-05-20 10:39] VITALS: BMI 19.6
== END 2023-05-20 11:15 | disposition home or self-care (01) ==
PROVIDERS: PCP Internal Medicine; Visit Provider Orthopaedic Surgery
DX: M19.041 Primary osteoarthritis, right hand (principal); M18.11 Unilateral primary osteoarthritis of first carpometacarpal joint, right hand
CPT/HCPCS: 99204

== ENCOUNTER 2023-06-03 15:06 | Outpatient (REF) | payer MEDICARE, MEDICAID, SELFPAY ==
--- NOTE | 2023-06-03 15:09 | EMG_ITS ---
Please see EMG / Nerve Conduction Report. MTDD
--- NOTE | 2023-06-03 15:10 | P.EMGPH_ITS ---
Physiatry - EMG/NCS EMG/NCS Chief complaint: Bilateral hand pain, left hand worse numbness than right Reason for referral: Evaluate for Carpal Tunnel Syndrome Referred by: Dr. Nolasco Procedure done: Bilateral upper extremities NCS/EMG Precautions and/or limitations: None The limb temperature was monitored continuously and remained between 32-36 degrees C during the performance of the NCS. Nerve Conduction Studies Anti Sensory Summary Table ?Stim Site NR Onset (ms) Norm Onset (ms) Peak (ms) Norm Peak (ms) O-P Amp (?V) Norm O-P Amp Site1 Site2 Delta-0 (ms) Dist (cm) Placido (m/s) Norm Placido (m/s) Left Median Anti Sensory (2nd Digit) Wrist ? 3.5 4.3 <3.6 4.9 >10 Wrist 2nd Digit 3.5 14.0 40 Right Median Anti Sensory (2nd Digit) Wrist ? 3.0 4.1 <3.6 21.3 >10 Wrist 2nd Digit 3.0 14.0 47 Left Ulnar Anti Sensory (5th Digit) 0 Wrist ? 3.2 3.9 <3.7 16.0 >15.0 Wrist 5th Digit 3.2 14.0 44 Right Ulnar Anti Sensory (5th Digit) Wrist ? 3.2 3.9 <3.7 15.9 >15.0 Wrist 5th Digit 1.8 14.0 78 Motor Summary Table ?Stim Site NR Onset (ms) Norm Onset (ms) O-P Amp (mV) Norm O-P Amp iAmp (mV) Amp (1st) (%) Site1 Site2 Delta-0 (ms) Dist (cm) Placido (m/s) Norm Placido (m/s) Left Median Motor (Abd Poll Brev) Wrist ? 4.5 <3.9 5.6 >4.5 7.1 100.0 Elbow Wrist 4.2 20.0 48 >45 Elbow ? 8.7 4.8 6.2 85.7 Right Median Motor (Abd Poll Brev) Wrist ? 3.8 <3.9 7.6 >4.5 8.8 100.0 Elbow Wrist 4.0 18.5 46 >45 Elbow ? 7.8 7.6 9.2 100.0 Left Ulnar Motor (Abd Dig Minimi) Wrist ? 3.0 <3.0 6.3 >5 8.4 100.0 B Elbow Wrist 3.5 17.0 49 >45 B Elbow ? 6.5 6.5 9.0 103.2 A Elbow B Elbow 1.8 10.0 56 >45 A Elbow ? 8.3 6.3 8.8 100.0 Right Ulnar Motor (Abd Dig Minimi) Wrist ? 3.0 <3.0 8.0 >5 9.7 100.0 B Elbow Wrist 3.6 16.5 46 >45 B Elbow ? 6.6 7.5 A 9.3 93.8 A Elbow B Elbow 1.8 A 10.0 56 >45 A Elbow ? 8.4 7.4 9.2 92.5 Comparison Summary Table ?Stim Site NR B Peak (ms) Norm Peak (ms) P- T Amp (?V) Site1 Site2 Delta-P (ms) Norm Delta (ms) Right Median/Radial Dig I Comparison (Digit 1 - 10cm) Median ? 4.7 <2.9 78.6 Median Radial 0.0 Radial ? 4.7 <2.8 47.3 EMG ?Side Muscle Nerve Root Ins Act Fibs Psw Amp Dur Poly Recrt Int Pat Comment Right 1stDorInt Ulnar C8-T1 Nml Nml Nml Nml Nml 0 Nml Complete Right FlexCarRad Median C6-7 Nml Nml Nml Nml Nml 0 Nml Complete Right Biceps Musculocut C5-6 Nml Nml Nml Nml Nml 0 Nml Complete Right Triceps Radial C6-7-8 Nml Nml Nml Nml Nml 0 Nml Complete Right Deltoid Axillary C5-6 Nml Nml Nml Nml Nml 0 Nml Complete 0 Left 1stDorInt Ulnar C8-T1 Nml Nml Nml Nml Nml 0 Nml Complete Left FlexCarRad Median C6-7 Nml Nml Nml Nml Nml 0 Nml Complete A Left Biceps Musculocut C5-6 Nml Nml Nml Nml Nml 0 Nml Complete Left Triceps Radial C6-7-8 Nml Nml Nml Nml Nml 0 Nml Complete Left Deltoid Axillary C5-6 Nml Nml Nml Nml Nml 0 Nml Complete FINDINGS: Left median motor nerve showed prolonged distal latency, normal amplitude and normal conduction velocity. Bilateral median sensory nerves showed prolonged peak latency. All other nerves tested were within normal. Concentric needle EMG was performed in selected muscles of the bilateral upper extremities and cervical paraspinals. Study did not reveal signs of electric abnormalities as shown in the table below. IMPRESSION: 1. This is an abnormal study. 2. There is electrodiagnostic evidence for left moderate-severe and right mild median neuropathy at the wrist, consistent with Carpal Tunnel Syndrome. 3. There is no electrodiagnostic evidence for ulnar neuropathy, brachial plexopathy, or cervical radiculopathy. Thank you for your kind referral. Rsosy Mcgovern MD, CARLOS Board Certified, [place] [employer] and [employer] (ABPMR) Board Certified, [place] Board of Electrodiagnostic [employer] (ABEM)
== END 2023-06-03 15:07 | disposition home or self-care (01) ==
LOC: HO.NEURO 15:06
PROVIDERS: Visit Provider Orthopaedic Surgery
DX: R20.0 Anesthesia of skin (principal); R20.2 Paresthesia of skin
CPT/HCPCS: 95860; 95886; 95907; 95911

== ENCOUNTER → 2023-06-03 15:06 | Outpatient (BNV) | payer MEDICARE, MEDICAID, SELFPAY | PROVIDERS: Visit Provider Physical Medicine & Rehabilitation | DX: G56.11 Other lesions of median nerve, right upper limb (principal); G56.12 Other lesions of median nerve, left upper limb; G56.03 Carpal tunnel syndrome, bilateral upper limbs | CPT/HCPCS: 95886; 95911 ==

== ENCOUNTER 2023-07-20 10:28 | Outpatient (AMB) | payer MEDICARE, MEDICAID, SELFPAY ==
[2023-07-20 10:33] VITALS: BP 96/60; PULSE 88; RESP 14; O2SAT 98; BMI 18.8
--- NOTE | 2023-07-20 10:33 | A.OFFVIS_ITS ---
Intake Vital Signs 07/20/23 10:33 Height 5 ft 5 in Weight 113 lb BMI 18.8 BP 96/60 Blood Pressure Location Lt brachial Position Sitting Respiration 14 Pulse 88 Pulse Source Pulse Oximeter Pulse Oximetry (%) 98 Intake Visit Reasons: Knee XRay Results Allergies ciprofloxacin [From Cipro] Allergy (Severe, Verified 07/20/23 10:34) Redness on Face levofloxacin [From Levaquin] Allergy (Severe, Verified 07/20/23 10:34) Swelling in the Joints hydromorphone [From Dilaudid] Adverse Reaction (Intermediate, Verified 07/20/23 10:34) Anxiety Medication List - Last Reconciled 07/20/23 by Naheed Martinez LPN albuterol sulfate 90 mcg/actuation 2 puffs PO Q4H PRN 30 days albuterol sulfate 2.5 mg (3 mL) inhalation Q4H PRN arformoterol 2 mL inhalation BID betamethasone, augmented 0.05 % appl topical budesonide 0.5 mg (2 mL) inhalation BID 30 days carvedilol 3.125 mg PO BID cetirizine 10 mg PO DAILY PRN cyclobenzaprine 10 mg PO BEDTIME denosumab (Prolia) mg subcut docusate sodium 200 mg PO BID PRN duloxetine 30 mg PO DAILY furosemide 20 mg PO DAILY ibuprofen mg PO PRN lisinopril 5 mg PO DAILY lorazepam 1 mg PO TID PRN methadone 10 mg PO naproxen 500 mg PO BID PRN nebulizers As directed nystatin 5 mL PO QID ondansetron 4 mg PO Q6H PRN Oxygen Home Use As directed revefenacin (Yupelri) 175 mcg (3 mL) inhalation DAILY 90 days roflumilast (Daliresp) 500 mcg PO DAILY testosterone 2 pumps topical DAILY HPI Knee XRay Results HPI Details 63-year-old male who presents today to t he office for a review of knee x-ray result. He states that his knee pain is still at baseline. He has a history of multiple compression fractures in his spine. He states that his back pain has been worse since his last visit. He has been [facility] and has been receiving injections twice a year for treatment of osteoporosis. He had a couple of lipomas on his back, which were removed by Dr. Harris. Recently, he has noticed a lipoma overlying the midline of the spine/spinous processes which Dr. Kamara declined to remove. He has difficulty lying down on his back and sleeping at night due to this lipoma. The patient has been performing physical therapy with moderate benefits. He has been trying to wean off the medication. He has not taken oxycontin. He is currently taking methadone 10 mg B.I.D. He occasionally takes NSAIDs and generally avoids them. The patient has previously had radiofrequency ablation with 80% relief for 18 months and is interested in repeating this procedure for his low back pain. He states that he visited Dr. Nolasco, a hand surgeon, on 05/20/23. He will be scheduled for hand surgery in Jul-Sep 10. [facility] Medical History Asthma Asthma Asthma-COPD overlap syndrome Back pain Bronchitis Chronic neck and back pain COPD (chronic obstructive pulmonary disease) Dyspnea FH: bowel obstruction Pulmonary nodules Surgical History History of esophagogastroduodenoscopy (EGD) History of hernia repair History of lung biopsy History of partial colectomy Hx of colonoscopy Family History Mother History of lung cancer Social History Alcohol intake: never Patient Tobacco Use Status: Former Tobacco user Tobacco use type: Cigarette Years Smoked: 15 years Review of Systems Const All systems reviewed & are unremarkable except as noted in HPI and below Physical Exam Vital Signs: Last Vital Signs Pulse 88 07/20/23 10:33 Resp 14 07/20/23 10:33 BP 96/60 07/20/23 10:33 Pulse Ox 98 07/20/23 10:33 BMI result Body Mass Index 18.8 General: Appears afebrile. Alert and oriented. Mood and affect appropriate. Follows and participates in conversation appropriately. Respiratory effort is unlabored. Able to transition from sit to stand unassisted. Ambulates with bilaterally normal heel strike and toe off. Midline swelling overlying the spinous processes in the mid back region likely secondary to the previously diagnosed lipoma. Lumbar range of motion is severely limited. Results Reviewed Results Reviewed: 04/13/23: XR KNEE AP STANDING: FINDINGS: No fracture or joint effusion. Alignment is anatomic. Joint spaces are maintained. There is chondrocalcinosis. IMPRESSION: 1. No fracture or dislocation is seen bilaterally. 2. The bilateral lateral and medial joint space compartments are well- maintained. 3. There is chondrocalcinosis, which can be associated with CPPD. Assessment & Plan Assessment & Plan (1) Chondrocalcinosis: Code(s): M11.20 - Other chondrocalcinosis, unspecified site (2) Lumbar spondylosis: Code(s): M47.816 - Spondylosis without myelopathy or radiculopathy, lumbar region Plan Will schedule him for bilateral diagnostic L3-L4-L5 medial branch blocks one round to assess candidacy for repeat radiofrequency ablation. The patient has previously had radiofrequency ablation with 80% relief for 18 months. Discussed the risks and benefits of the procedure with the patient in detail. All questions were answered. The patient is on board with the plan. Justification for interventional therapy: ? Patient with average pain > 6/10 ? Patient has exhausted conservative therapy A referral was provided to drafter electromechanical for consideration of synovial fluid aspiration in his knee for potential diagnosis of CPPD. Scribed for Dr. Willams by Adolfo Simmons, medical technical writer, on 07/20/2023. I, Dr. Willams, have personally reviewed and agree with the information entered by the scribe. Orders: Referrals Rheumatology Referral M11.20 - Other chondrocalcinosis, unspecified site Coding Level of Care Code Est Pt Level 4 (06153) Diagnoses Chondrocalcinosis M11.20 Lumbar spondylosis M47.816
== END 2023-07-20 10:53 | disposition home or self-care (01) ==
PROVIDERS: PCP Internal Medicine; Visit Provider Internal Medicine
DX: M11.20 Other chondrocalcinosis, unspecified site (principal); M47.816 Spondylosis without myelopathy or radiculopathy, lumbar region
CPT/HCPCS: 99214

== ENCOUNTER → 2023-07-20 10:28 | Outpatient (BNVA) | payer MEDICARE, MEDICAID, SELFPAY | PROVIDERS: Visit Provider Internal Medicine | DX: M11.20 Other chondrocalcinosis, unspecified site (principal); M47.816 Spondylosis without myelopathy or radiculopathy, lumbar region | CPT/HCPCS: 99212 ==

== ENCOUNTER 2023-07-23 07:59 | Outpatient (AMB) | payer MEDICARE, MEDICAID, SELFPAY ==
--- NOTE | 2023-07-23 08:00 | A.OFFVIS_ITS ---
Intake Vital Signs 07/23/23 08:01 Height 5 ft 5 in Weight 120 lb 2.431 oz BMI 20.0 BP 110/60 Blood Pressure Location Lt brachial Position Sitting Pulse 55 Pulse Source Pulse Oximeter Temp 98.4 F Temp Source Skin Pulse Oximetry (%) 99 Oxygen Delivery Method Room Air Intake Visit Reasons: Chondrocalcinosis/knee aspiration Intake Note: New patient presents today for chondrocalcinosis and left knee aspiration. 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 Child Caregiver Required: No Accompanied by: [employer] Allergies ciprofloxacin [From Cipro] Allergy (Severe, Verified 07/23/23 08:00) Redness on Face levofloxacin [From Levaquin] Allergy (Severe, Verified 07/23/23 08:00) Swelling in the Joints hydromorphone [From Dilaudid] Adverse Reaction (Intermediate, Verified 07/23/23 08:00) Anxiety Medication List - Last Reconciled 07/23/23 by Adalberto Silva MD albuterol sulfate 90 mcg/actuation 2 puffs PO Q4H PRN 30 days albuterol sulfate 2.5 mg (3 mL) inhalation Q4H PRN arformoterol 2 mL inhalation BID betamethasone, augmented 0.05 % appl topical budesonide 0.5 mg (2 mL) inhalation BID 30 days cetirizine 10 mg PO DAILY PRN cyclobenzaprine 10 mg PO BEDTIME denosumab (Prolia) mg subcut docusate sodium 200 mg PO BID PRN duloxetine 30 mg PO DAILY ibuprofen mg PO PRN lisinopril 5 mg PO DAILY lorazepam 1 mg PO TID PRN methadone 10 mg PO metoprolol succinate ER 50 mg PO DAILY nebulizers As directed nystatin 5 mL PO QID PRN ondansetron 4 mg PO Q6H PRN revefenacin (Yupelri) 175 mcg (3 mL) inhalation DAILY 90 days roflumilast (Daliresp) 500 mcg PO DAILY testosterone transdermal HPI HPI Comments History of Present Illness Details The patient presents today with complaints of widespread joint pains. He is here with his [employer] who works with him 5 days a week. He cannot really give a day as to the onset of his pains but it sounds like at least for the last 10 years there has been pain in the back, knees, hands, and feet. He was told he had some neuropathy in his feet. He had a football injury as a youth at the right thumb MCP. That has significant osteoarthritis and surgery is contemplated for that later on this year. He has a history of COPD/asthma with multiple episodes of pneumonia. He was last in the hospital back November of this year with heart failure. He has been found to immunodeficiency with low g lobulin levels and receives gammaglobulin every month. With that treatment for the last few years he has done better. He is presently in some physical therapy for the back pain and receives Prolia for osteoporosis with a history of previous compression fractures.. He has had corticosteroid injections in the past. He is seeing Pain Management here and they are contemplating other procedures. This referral was precipitated by the finding of chondrocalcinosis in the knees. He does not really give any history of acute inflammatory disease in the knees or elsewhere. He was never told he had gout. He does have a dry mouth. He takes cyclobenzaprine at night and duloxetine during the day. He is on methadone 10 mg twice a day he says for pain. Sometimes he tries to skip a dose. In the past he was on oxycodone. [facility] Medical History (Updated 07/23/23 @ 10:04 by Adalberto Silva MD) Chondrocalcinosis Chronic neck and back pain Asthma Asthma-COPD overlap syndrome Asthma FH: bowel obstruction Bronchitis Pulmonary nodules Back pain Dyspnea COPD (chronic obstructive pulmonary disease) Surgical History Hx of colonoscopy History of esophagogastroduodenoscopy (EGD) History of partial colectomy History of hernia repair History of lung biopsy Family History Mother History of lung cancer Social History (Updated 07/23/23 @ 08:11 by SMITA Lucia) Household Members: Family Alcohol intake: never Patient Tobacco Use Status: Former Tobacco user Tobacco use type: Cigarette Years Smoked: 15 years Current occupational status: disabled Review of Systems Const Details: Some weight loss in the last few years. Low energy. Negative for appetite change, fever, chills, malaise Eyes Details: Dry eyes at times. Negative for vision change, or headaches and dizziness ENT Details: Dry mouth and tinnitus. These are chronic problems. Negative for hearing change, oral ulcer, nose bleeds Card Details: Negative chest pain, edema and syncope Resp Details: Chronic but stable exertional dyspnea. Negative for cough and wheezing GI Details: Some constipation. Negative indigestion/heartburn, nausea, abdominal pain, bowel changes, diarrhea and bloody stool. Details: Negative for dysuria, hematuria, nocturia, decreased force/flow and genital discharge Skin/Breast Details: Negative for itching, rash, hives, Raynaud's symptoms, sun sensitivity, and skin cancer Neuro Details: Some numbness in the feet. It sounds like he did have nerve conduction studies and told he had neuropathy. Negative for epilepsy, palsy, stroke, changes in speech,and weakness Psych Details: Negative for anxiety, depression and stress Endo Details: Negative for polyuria and polydypsia Marcel/Lymph Details: Negative for excessive bruising or bleeding. Physical Exam Vital Signs: Last Vital Signs Temp 98.4 F 07/23/23 08:01 Pulse 55 07/23/23 08:01 BP 110/60 07/23/23 08:01 Pulse Ox 99 07/23/23 08:01 Oxygen Delivery Method Room Air 07/23/23 08:01 BMI result Body Mass Index 20.0 APPEARANCE: Patient in no acute distress EYES no redness, pupils equal and reactive to light, eyelids normal. No temporal artery tenderness, redness or swelling. EARS: External ear normal, canal clear and tympanic membrane normal. NOSE/SINUS: Airflow through both nares, no nasal discharge, no bleeding THROAT: Oral mucosa moist, no ulcerations NECK: No thyromegaly or masses, no adenopathy, trachea midline. HEART: Regulrar rhythm, S1-S2 heard, no murmurs, rubs or gallops. LUNG: Clear to percussion and auscultation ABD: Normal bowel sounds, no organomegaly, masses or tenderness. EXTREMITIES: No edema, no calf tenderness, normal peripheral pulses. NEURO: Oriented and alert x3. No focal weakness. Reflexes symmetric. Gait normal. The sensation over the soles of the feet. SKIN: No inflammatory or neoplastic lesions. Normal color and turgor JOINT EXAM:?? Cervical Spine:.? Full range of motion with mild pain at the extremes. Mild cervical muscle tenderness. Thoracic Spine:.? No scoliosis.? No tenderness on palpation. Lumbar Spine:.? Alignment normal.? The moderate pain with flexion beyond 45 degrees. There is paraspinal muscle tenderness. Straight leg raising causes lumbar pain at about 45 degrees.. Chest Wall:.? No tenderness, swelling, increased warmth or erythema. Hands:.? Right: There is instability, bony enlargement, pain with motion, and tenderness at the thumb MCP joint. There is also some mild bony enlargement and slight tenderness at the thumb CMC joint and IP joint. There is some bony enlargement across the PIP joints but they are not tender. There is some slight bony enlargement and tenderness at the 2nd D IP. There is no flexor tendon triggering, thenar atrophy or sensory loss. Left: Slight tenderness at the base of the thumb. There is some bony enlargement but very prominent at the 2nd 3rd DIP joints and less so at the 5th DIP. All of the DIP's have tenderness; more so at the 2nd and 3rd. There is no redness or warmth. There is nontender enlargement at the PIP's. There is no flexor tendon triggering, thenar atrophy or sensory loss. Wrists:.? Normal pain-free range of motion without tenderness, swelling, increased warmth or erythema. Elbows:. Normal pain-free range of motion without tenderness, swelling, increased warmth or erythema. Shoulders: There is normal range of motion with some mild pain at the extremes of abduction. There is slight anterior tenderness without adenopathy, weakness, swelling, increased warmth or erythema. Hips:.? Full range of motion with pain occurring in the lumbar region with extremes of normal internal or external rotation. No groin pain with range of motion. Hip bursa: Mild trochanteric tenderness. Knees:.??There is mild pain with extremes of flexion extension. There is minimal patellofemoral crepitus and mild medial compartment tenderness but no redness, warmth or effusion. There is no popliteal tenderness or swelling. No ligamentous instability. Ankles:.? Normal pain-free range of motion with some mild medial lateral tenderness but no swelling, increased warmth or erythema. Feet:.? There is tenderness across the insteps and MTP joints in both feet. There is decreased sensation over the toes in the soles of the feet. I do not detect any soft tissue swelling, redness or warmth. The skin envelope is intact. Tender points:? Mild tenderness to digital palpation at the left trapezius, both second rib, left lateral epicondyle, both knees, left greater trochanter area bilaterally. Results Reviewed Results Reviewed: Lab work from [facility]: 2019 through 2019: KURT negative, rheumatoid factor negative, CCP antibody negative [facility] [address] [place] [address] Drive [address] [place] [address] XRay Report Signed Patient: Aj Butt MR#: [id number] : 1960 Acct:[id number] Age/Sex: 62 / M ADM Date: 05/20/[address]: Milady Nolasco MD Ordering Physician: Milady Nolasco MD Date of Service: 05/20/23 Procedure(s): XR hand RT min 3V Accession Number(s): [id number] cc: Milady Nolasco MD~ EXAMINATION: XR HAND, RIGHT CLINICAL INFORMATION: Pain right hand Attention base of the thumb COMPARISON: None available. TECHNIQUE: PA, lateral, and oblique views of the right hand. FINDINGS: The bones are intact no fracture. Alignment is anatomic. There is marked radial deviation of the first metacarpal. There is severe degenerative change of the first metacarpophalangeal joint with subluxation of the proximal phalanx of the thumb with respect to the head of the first metacarpal. No erosions or soft tissue calcifications. XR/XR hand RT min 3V IMPRESSION: Marked radial deviation of the first metacarpal. Severe degenerative change of the first metacarpophalangeal joint with subluxation of the proximal phalanx of the thumb. Dictated By: Shawna Pugh MD [address] [address] XRay Report Signed Patient: Aj Butt : 1960 Acct:[id number] Age/Sex: 62 / M ADM Date: 04/13/[address]: Kenneth Willams MD Ordering Physician: Kenneth Willams MD Date of Service: 04/13/23 Procedure(s): XR knee standing BI Accession Number(s): [id number] cc: Kenneth Willams MD~ EXAMINATION: XR KNEE AP STANDING CLINICAL INFORMATION: Chronic bilateral knee pain. COMPARISON: None available. TECHNIQUE: AP bilateral standing view of the knees was obtained. FINDINGS: No fracture or joint effusion. Alignment is anatomic. Joint spaces are maintained. There is chondrocalcinosis. XR/XR knee standing BI IMPRESSION: 1. No fracture or dislocation is seen bilaterally. 2. The bilateral lateral and medial joint space compartments are well-maintained. 3. There is chondrocalcinosis, which can be associated with CPPD. Dictated By: Arnaud Parks MD Assessment & Plan Assessment & Plan (1) Osteoarthritis of hand, left: Code(s): M19.042 - Primary osteoarthritis, left hand (2) Foot pain, bilateral: Code(s): M79.671 - Pain in right foot; M79.672 - Pain in left foot (3) Chondrocalcinosis of both knees: Code(s): M11.261 - Other chondrocalcinosis, right knee; M11.262 - Other chondrocalcinosis, left knee Plan He has some posttraumatic osteoarthritis at the thumb MCP of the right hand. There are other changes in that hand in the left hand consistent with osteoarthritis. I do not see any signs of active inflammatory arthritis. The knee pain is not accompanied by any swelling so I do not think there is inflammatory disease present. Radiographs have shown the presence of chondrocalcinosis in the knees and mild OA. He also has OA in the LS spine. The chondrocalcinosis could predispose him to acute get pseudogout attacks but it does not sound like he has ever had any. There is no treatment appropriate for chondrocalcinosis for now. He does have a number of tender points so could have some element of fibromyalgia but with such extensive osteoarthritis at present it would be hard to determine to whioch of his pains are from fibromyalgia. He is already on antidepressants, he has tried gabapentin and Lyrica without improvement and already takes a muscle relaxant at night. I do not think additional treatment for fibromyalgia possibility would be that beneficial. With a history of heart failure I would tend to avoid NSAIDs systemically. He did try some topical diclofenac but was turned off by its odor. We will get x- ray of the left hand to confirm the presence of OA in those joints. Additionally I am going to order x-rays of the feet. They do not look like they have arthritic changes but there is some tenderness. Mostly this is probably pain from neuropathy. I told him I did not have additional treatment to suggest for him. Physical therapy and continued efforts at maintaining his conditioning would be helpful in terms of functioning. Orders: Orders XR foot LT min 3V Today M79.671 - Pain in right foot, M79.672 - Pain in left foot XR hand LT min 3V Today M19.042 - Primary osteoarthritis, left hand XR foot RT min 3V Today M79.671 - Pain in right foot, M79.672 - Pain in left foot Coding Level of Care Code New Pt Level 3 (24920) Diagnoses Osteoarthritis of hand, left M19.042 Foot pain, bilateral M79.671; M79.672 Chondrocalcinosis of both knees M11.261; M11.262
[2023-07-23 08:01] VITALS: BP 110/60; PULSE 55; TEMP 36.9; O2SAT 99
== END 2023-07-23 09:09 | disposition home or self-care (01) ==
PROVIDERS: PCP Internal Medicine; Visit Provider Internal Medicine Rheumatology
DX: M19.042 Primary osteoarthritis, left hand (principal); M79.671 Pain in right foot; M79.672 Pain in left foot; M11.261 Other chondrocalcinosis, right knee; M11.262 Other chondrocalcinosis, left knee
CPT/HCPCS: 99203

== ENCOUNTER → 2023-07-23 07:59 | Outpatient (BNVA) | payer MEDICARE, MEDICAID, SELFPAY | PROVIDERS: Visit Provider Internal Medicine Rheumatology ==

== ENCOUNTER 2023-08-07 14:12 | Outpatient (REF) | payer MEDICARE, MEDICAID, SELFPAY ==
--- NOTE | ~2023-08-07 | XR_ITS ---
EXAMINATION: XR CHEST CLINICAL INFORMATION: Bronchopneumonia. COMPARISON: Chest radiograph 04/13/2023. CT chest 08/01/2022. TECHNIQUE: 2 views of the chest were obtained. FINDINGS: Normal heart size. Stable pulmonary hyperexpansion and diffuse bronchial/interstitial thickening more noticeable centrally. No new focal airspace densities. No pleural effusion or pneumothorax. Again noted surgical sutures projecting over the lateral right lung base. Chronic bilateral rib deformities. Multiple chronic stable compression deformities along the thoracic spine. XR/XR chest 2V IMPRESSION: 1. No new focal airspace densities. 2. Chronic interstitial changes with air trapping. 3. Chronic compression deformities of the thoracic spine. Chronic bilateral rib deformities. 4. Pulmonary nodules described on CT chest from 08/01/2022 are too small to characterize by radiograph. Follow-up with outpatient chest CT recommended.
== END 2023-08-07 14:13 | disposition home or self-care (01) ==
LOC: HO.XRAY 14:12
PROVIDERS: PCP Internal Medicine; Visit Provider Nurse Practitioner Family
DX: J18.0 Bronchopneumonia, unspecified organism (principal); J44.0 Chronic obstructive pulmonary disease with (acute) lower respiratory infection; R91.8 Other nonspecific abnormal finding of lung field
CPT/HCPCS: 71046; 94640; 99212

== ENCOUNTER 2023-08-07 14:12 | Outpatient (AMB) | payer MEDICARE, MEDICAID, SELFPAY ==
--- NOTE | 2023-08-07 14:40 | MHC.OFFVIS ---
Intake Vital Signs 08/07/23 14:41 Height 5 ft 5 in Weight 120 lb BMI 20.0 BP 112/64 Blood Pressure Location Rt brachial Position Sitting Pulse 80 Pulse Source Pulse Oximeter Pulse Oximetry (%) 97 Oxygen Delivery Method Room Air Intake Visit Reasons: Cough Pacu Rn Required: No Supervisor Counseling And Guidance: Supervisor Counseling And Guidance offered & declined Accompanied by: Daughter Allergies ciprofloxacin [From Cipro] Allergy (Severe, Verified 08/07/23 14:48) Redness on Face levofloxacin [From Levaquin] Allergy (Severe, Verified 08/07/23 14:48) Swelling in the Joints hydromorphone [From Dilaudid] Adverse Reaction (Intermediate, Verified 08/07/23 14:48) Anxiety Medication List - Last Reconciled 08/07/23 by Re Medrano LPN albuterol sulfate 90 mcg/actuation 2 puffs PO Q4H PRN 30 days albuterol sulfate 2.5 mg (3 mL) inhalation Q4H PRN arformoterol 2 mL inhalation BID betamethasone, augmented 0.05 % appl topical budesonide 0.5 mg (2 mL) inhalation BID 30 days cetirizine 10 mg PO DAILY PRN cyclobenzaprine 10 mg PO BEDTIME denosumab (Prolia) mg subcut docusate sodium 200 mg PO BID PRN duloxetine 30 mg PO DAILY ibuprofen mg PO PRN lisinopril 10 mg PO DAILY lorazepam 1 mg PO TID PRN methadone 10 mg PO metoprolol succinate ER 50 mg PO DAILY nebulizers As directed nystatin 5 mL PO QID PRN ondansetron 4 mg PO Q6H PRN revefenacin (Yupelri) 175 mcg (3 mL) inhalation DAILY 90 days roflumilast (Daliresp) 500 mcg PO DAILY testosterone transdermal HPI Cough HPI Details Aj is a pleasant 63 year old male, former smoker, with underlying history of asthma, COPD, decreased EF of 15% with possible placement of ICD and hypogammaglobulimenia on IVIG infusions. He is moderately controlled on Brovana, budesonide, duo neb, daliresp and yulpelri. Today he presents for an acute visit. He is on his last day of a ten day doxycyline course with minimal improvements in wheezing, productive cough with green sputum and chest tightness. He also reports hoarseness, chest discomfort and vomiting from persistent coughing. He reports multiple family members with similar symptoms. He denies fevers or chills. [facility] Medical History (Updated 08/07/23 @ 15:23 by Jordyn Gore NP) Chondrocalcinosis Chronic neck and back pain Asthma Asthma-COPD overlap syndrome Asthma FH: bowel obstruction Bronchitis Pulmonary nodules Back pain Dyspnea COPD (chronic obstructive pulmonary disease) Surgical History Hx of colonoscopy History of esophagogastroduodenoscopy (EGD) History of partial colectomy History of hernia repair History of lung biopsy Family History Mother History of lung cancer Social History (Updated 07/23/23 @ 08:11 by SMITA Lucia) Household Members: Family Alcohol intake: never Patient Tobacco Use Status: Former Tobacco user Tobacco use type: Cigarette Years Smoked: 15 years Current occupational status: disabled Review of Systems Const Reports fatigue, Denies fever(s), Denies headache(s), Denies night sweats and Reports poor appetite ENT Reports Normal hearing present, Denies change in voice, Denies headache(s), Denies lip swelling, Denies mouth pain, Reports nasal congestion, Reports nasal discharge, Reports neck pain and Denies tongue swelling Card Denies chest pain, Reports dyspnea and Reports dyspnea on exertion Resp Reports change in phlegm color, Reports chest congestion, Reports cough, Denies hemoptysis, Reports excessive phlegm production, Denies pain on inspiration, Reports dyspnea, Reports dyspnea on exertion and Reports wheezing GI Denies abdominal pain Musc Denies no additional complaints, Reports back pain and Reports neck pain Neuro Reports Normal hearing present, Denies Neuro-related abnormal movements and Denies headache(s) Psych Denies no additional complaints Endo Reports fatigue Marcel/Lymph Denies easy bleeding and Denies lymphadenopathy Aller/Immun Denies lip swelling, Denies tongue swelling and Reports wheezing Physical Exam Vital Signs: Last Vital Signs Pulse 80 08/07/23 14:41 BP 112/64 08/07/23 14:41 Pulse Ox 97 08/07/23 14:41 Oxygen Delivery Method Room Air 08/07/23 14:41 BMI result Body Mass Index 20.0 Const General: cooperative, well developed and alert Orientation/consciousness: patient oriented x3 Limitations: no limitations HEENT Head: Yes normal to inspection, Yes normocephalic and Yes atraumatic Ears: hearing grossly normal bilaterally and external ears normal Eyes General: appearance normal, both eyes and all related structures Eyelids: Yes eyelids normal Sclerae: sclerae normal EOM: EOMs intact bilaterally Neck Neck: Yes normal visual inspection and Yes no lymphadenopathy Lymphatic: no lymphadenopathy noted Chest Chest palpation & inspection: normal inspection of the chest Resp Effort & Inspection: able to speak in complete sentences, no stridor, not tachypneic, no tripod positioning and no use of accessory muscles Auscultation: crackles (faint inspiratory crackles bibasilar), rhonchi throughout and wheezes expiratory wheezes and throughout Cardio Jugular venous distension: no JVD Rate: regular rate Rhythm: regular rhythm Skin Other: warm, dry General skin exam: no rashes or lesions noted Neuro General: patient oriented x3 Cranial nerves: Yes Normal hearing present Cognition (Neuro): normal cognition Gait exam (Neuro): Normal gait present Extrem General: Yes normal to inspection, Yes capillary refill normal, Yes no clubbing, cyanosis or edema and Yes no pedal edema Psych Appearance: grossly normal and well kempt Speech and movement: Normal speech and movement present and Clear speech present Affect: normal affect Attitude: cooperative Thought process: Normal thought process present Thought content: Normal thought content present Insight: Good insight present (Psych) Judgement: Good judgement present (Psych) Office Procedures Nebulizer Treatment Nebulizer Treatment [id number]/MDI RX initial, or Nebulizer Subsequent Treatment Office Meds ipratropium 0.5 mg-albuterol 3 mg (2.5 mg base)/3 mL nebulization angen Performing Provider: Jordyn Gore NP Performing Location: [facility] Administered by: Re Medrano LPN on 08/07/23 15:44 Dose Route Admin Location Dispensed Lot Number Expiration Date [facility] [employer] 3 mL inhalation 3 mL [id number] 12/16/24 0171-6176-14 [employer] Assessment & Plan Assessment & Plan (1) Bronchopneumonia: Code(s): J18.0 - Bronchopneumonia, unspecified organism (2) COPD (chronic obstructive pulmonary disease): Comment: very severe Code(s): J44.9 - Chronic obstructive pulmonary disease, unspecified Qualifiers: COPD type: COPD with acute lower respiratory infection Qualified Code(s): J44.0 - Chronic obstructive pulmonary disease with (acute) lower respiratory infection (3) Cardiomyopathy: Comment: EF 15% Code(s): I42.9 - Cardiomyopathy, unspecified (4) Pulmonary nodules: Code(s): R91.8 - Other nonspecific abnormal finding of lung field Plan Will treat bronchitic symptoms with Vantin and prednisone. Nebulizer treatment given in office with mild improvements in lung sounds. Will also send patient for CXR. Emphasized importance, if symptoms are worsening to seek emergent care. Will have close follow up with Dr. Ba next week. Patient is due for repeat chest CT to evaluate pulmonary nodules, last was 07/2022 with multiple nodules, largest 7 mm. Will send message to Dr. Ba, so results will be forwarded to him for follow up. All questions were answered and patient is in agreement of plan. Orders: Orders AMB Nebulizer Treatment 08/07/23 J18.0 - Bronchopneumonia, unspecified organism, J44.9 - Chronic obstructive pulmonary disease, unspecified XR chest 2V 08/07/23 J18.0 - Bronchopneumonia, unspecified organism Medications: New prednisone 40 mg (2 x 20 mg) PO DAILY 10 tabs 0RF cefpodoxime must administer with a meal/food 200 mg PO BID 20 tabs 0RF Coding Level of Care Code Est Pt Level 3 (53360) Diagnoses Bronchopneumonia J18.0 Chronic obstructive pulmonary disease with acute lower respiratory infection J44.0 COPD type: COPD with acute lower respiratory infection Cardiomyopathy I42.9 Pulmonary nodules R91.8 CPT Codes Nebulizer Treatment - Nebulizer Treatment, initial or subsequent: [id number]/MDI RX initial, or Nebulizer Subsequent Treatment ([id number])
[2023-08-07 14:41] VITALS: BP 112/64; PULSE 80; O2SAT 97
== END 2023-08-07 15:36 | disposition home or self-care (01) ==
LOC: HO.HPSW 14:12
PROVIDERS: PCP Internal Medicine; Visit Provider Nurse Practitioner Family
DX: J18.0 Bronchopneumonia, unspecified organism (principal); J44.9 Chronic obstructive pulmonary disease, unspecified
CPT/HCPCS: 99213

== ENCOUNTER 2023-08-11 10:10 | Outpatient (AMB) | payer MEDICARE, MEDICAID, SELFPAY ==
[2023-08-11 10:16] VITALS: BP 126/60; PULSE 85; O2SAT 96; BMI 20.2
--- NOTE | 2023-08-11 10:16 | MHC.OFFVIS ---
Intake Vital Signs 08/11/23 10:16 Height 5 ft 5 in Weight 121 lb 4.068 oz BMI 20.2 BP 126/60 Blood Pressure Location Lt brachial Position Sitting Pulse 85 Pulse Source Pulse Oximeter Pulse Oximetry (%) 96 Oxygen Delivery Method Room Air Intake Visit Reasons: Difficulty Breathing [employer] Insurance Required: No Allergies ciprofloxacin [From Cipro] Allergy (Severe, Verified 08/11/23 10:20) Redness on Face levofloxacin [From Levaquin] Allergy (Severe, Verified 08/11/23 10:20) Swelling in the Joints hydromorphone [From Dilaudid] Adverse Reaction (Intermediate, Verified 08/11/23 10:20) Anxiety HPI HPI Comments History of Present Illness Details The patient is a 63-year-old man with a known history of asthma COPD overlap syndrome. Patient states that he had been sick with his respiratory issues for the last 10 years. He was initially diagnosed with pneumonia. He has had bronchoscopies and also apparently a biopsy in the past. I cannot find the results at [facility]. He has also gone to [place] for further evaluation. He has been on oxygen for his respiratory failure. Currently using inogen. He has had multiple hospitalizations usually add [facility]. He also goes to [facility]. He has had multiple CT scans done for his pulmonary nodules. His last CT scan was done at [facility]. He has been on nebulized therapy as the inhalers have not been effective for him. He recently finished a prednisone taper. He states that his breathing has been a little bit more labored. Moderate severity. The weather has not helped either. He states that he quit smoking many years ago. 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 We did review a CT scan of the chest from 2015 from [facility] demonstrating areas of attenuation, ground-glass opacities along with moderate emphysema. He was asking about the xypher valves and see if he was a candidate for them. 11/21/2022 the patient has a telehealth visit today. He has been sick now for about 3 days. Worsening cough chest congestion wheezing. His COVID testing has been negative. Denies any fevers or chills. He continues with Respiratory Medicine. Has been using his nebulizer 2 to 3 times a day. He is considering going up on the prednisone. He does have a productive cough although difficult to expectorate. The phlegm appears to be thicker and yellow in color. 11/26/2022 the patient is here for sick visit. He has been sick now for about 3-4 days. He started developing chest tightness and chest congestion. He has been having worsening time with his breathing. He became so significant that he is call the ambulance twice to his house. However, he has not actually gone to the ER. He has been using his oxygen. The patient also has been taking azithromycin antibiotics and also started a prednisone course. The patient is not significantly better. In the office he has significant diminished at his breath sounds although no crackles that I could appreciate we did treat him with 2 DuoNeb treatments and did provide him with Solu-Medrol 125 mg IM in the office. Will go ahead and change his antibiotics and increase his prednisone. If the patient is no better he is to call the office for further evaluation. Will go ahead and check blood work including a venous gas to make sure that he is not retaining CO2. 12/23/2022 The patient is here for a hospital follow up visit. He was admitted to [facility] with acute on chronic hypoxic and hypercarbic respiratory failure. He was noted to have CM with acute CHF, EF 15%. Cardiac meds adjusted. PLaced on diuresis. Required BIPAP, although has a hard time tolerating the BIPAP. We did talk about the improtance of non invasive ventilator if he has any evicence of hypercarbia. He was taken off the prednisone and he has been doing ok and he was also taken off the theophylline. HE was placed on digoxin and Entresto, but did not tolerate the entrsto and was changed to an PATRICIA inhibitor which he is tolerating better. He was also treated got a GI infection. We are requesting the discharge summary at this time. 01/08/2023 the patient is here for pulmonary follow-up visit. He continues to have increased work of breathing. He has a maximal respiratory therapy. Had to come off the theophylline because of his other comorbidities. Is based on the very severe COPD and chronic respiratory failure along with his recent admission with hypercarbic respiratory failure to the hospital will start the patient on noninvasive ventilator. The noninvasive ventilator will help him with improving his gas exchange, improved his prognosis and decrease hospitalizations. 03/17/2023 the patient is here for pulmonary follow-up visit. The patient is feeling a lot better. He is working closely with his cardiac status. He is improving and therefore his respiratory status is improving as well. He feels a lot stronger. He is going to have a repeat echocardiogram and may indeed need a defibrillator if his EF continues to be low. In the meantime the patient did get a noninvasive ventilator. Unfortunately tried multiple masks and cannot sleep with it he tried using it during the daytime he did not tolerated. At this point the patient does not want her continue using it. I did recommend he call the [facility] in order for them to pick it up since he is not using it. We will reassess in the future depending on his CO2 if it starts going up at that time if that is the case we will look into restarting noninvasive therapy. Regards pulmonary nodules he is due for CT scan in July. In addition to all this he is trying to wean off the opiates specially because he has had multiple complications because of the opiates including constipation. Will go ahead and refer him to the Pain Clinic in order for him to look for alternative therapies in view of his severe chronic back and neck pain. This will help his respiratory status as well. 08/11/2023 the patient is here for pulmonary follow-up visit. He was recently seen for a COPD exacerbation. He was evaluated back the end of July he was placed on Vantin and also prednisone he did not take prednisone. The is still coughing although the cough is better less productive is still not gain. Moderate severity. The patient did have a chest x-ray without any acute disease at that time. He continues with respiratory therapy. His cardiac status is stable. He has a hard time expectorating. He does have a flutter valve. I did encourage him for him to use it. The patient will go ahead and start Bactrim. If he still having a productive cough I did provide him with sputum cup in order for him to provide. [facility] Medical History (Updated 08/11/23 @ 13:38 by Paulino Ba MD) Chondrocalcinosis Chronic neck and back pain Asthma Asthma-COPD overlap syndrome Asthma FH: bowel obstruction Bronchitis Pulmonary nodules Back pain Dyspnea COPD (chronic obstructive pulmonary disease) Surgical History Hx of colonoscopy History of esophagogastroduodenoscopy (EGD) History of partial colectomy History of hernia repair History of lung biopsy Family History Mother History of lung cancer Social History (Updated 07/23/23 @ 08:11 by SMITA Lucia) Household Members: Family Alcohol intake: never Patient Tobacco Use Status: Former Tobacco user Tobacco use type: Cigarette Years Smoked: 15 years Current occupational status: disabled Review of Systems Const Reports fatigue, Denies fever(s), Denies headache(s), Denies night sweats and Reports poor appetite ENT Reports Normal hearing present, Denies change in voice, Denies headache(s), Denies lip swelling, Denies mouth pain, Reports nasal congestion, Reports nasal discharge, Reports neck pain and Denies tongue swelling Card Denies chest pain, Reports dyspnea and Reports dyspnea on exertion Resp Reports change in phlegm color, Reports chest congestion, Reports cough, Denies hemoptysis, Reports excessive phlegm production, Denies pain on inspiration, Reports dyspnea, Reports dyspnea on exertion and Reports wheezing GI Denies abdominal pain Musc Denies no additional complaints, Reports back pain and Reports neck pain Neuro Reports Normal hearing present, Denies Neuro-related abnormal movements and Denies headache(s) Psych Denies no additional complaints Endo Reports fatigue Marcel/Lymph Denies easy bleeding and Denies lymphadenopathy Aller/Immun Denies lip swelling, Denies tongue swelling and Reports wheezing Physical Exam Vital Signs: Last Vital Signs Pulse 85 08/11/23 10:16 BP 126/60 08/11/23 10:16 Pulse Ox 96 08/11/23 10:16 Oxygen Delivery Method Room Air 08/11/23 10:16 BMI result Body Mass Index 20.2 Const General: alert and acute distress mild HEENT General nose exam: Abnormal external nose present and Nasal discharge present Eyes Pupils: Equal, round and reactive pupils present Neck Neck: Yes normal visual inspection, Yes full ROM and Yes no lymphadenopathy Chest Chest palpation & inspection: normal inspection of the chest Resp Effort & Inspection: normal respiratory effort, not tachypneic, no use of accessory muscles and No prolonged expiratory phase Auscultation: no crackles, no wheezes and diminished lung sounds Cardio Rate: regular rate Rhythm: regular rhythm Heart sounds: S1 normal heart sound present and S2 normal heart sound present GI Palpation (GI): Tenderness to palpation present (GI) in the LUQ and in the RUQ; with no rebound tenderness, no guarding and No Rebound tenderness present Auscultation: normal bowel sounds General: Yes no CVA tenderness Back/Spine/Pelvis Back: no CVA tenderness Skin General skin exam: rashes and/or lesions noted Neuro Cranial nerves: Yes Equal, round and reactive pupils present and Yes Normal hearing present Extrem General: No no pedal edema Assessment & Plan Assessment & Plan (1) COPD (chronic obstructive pulmonary disease): Comment: very severe Code(s): J44.9 - Chronic obstructive pulmonary disease, unspecified Qualifiers: COPD type: COPD with acute lower respiratory infection Qualified Code(s): J44.0 - Chronic obstructive pulmonary disease with (acute) lower respiratory infection (2) Dyspnea: Code(s): R06.00 - Dyspnea, unspecified Qualifiers: Dyspnea type: dyspnea on exertion Qualified Code(s): R06.00 - Dyspnea, unspecified (3) Pulmonary nodules: Code(s): R91.8 - Other nonspecific abnormal finding of lung field (4) Cardiomyopathy: Comment: EF 15% Code(s): I42.9 - Cardiomyopathy, unspecified Qualifiers: Cardiomyopathy type: unspecified Qualified Code(s): I42.9 - Cardiomyopathy, unspecified (5) Bronchitis: Code(s): J40 - Bronchitis, not specified as acute or chronic Plan start Bactrim cough medicine low dose prednisone Sputum culture if able diuresis as tolerated Continue respiratory therapy: Daliresp, Brovana, Yulperi RAFAELA as needed continue oxygen 2 L with activity. He does use a POC for portability outside of the home ([employer]) CPT with Acapella valve. repeat CT scan of the chest in Fall once better follow-up in 2-3 months Orders: Orders Sputum Cult + Gram stain Today J40 - Bronchitis, not specified as acute or chronic, J44.9 - Chronic obstructive pulmonary disease, unspecified Medications: New benzonatate 200 mg PO BID 30 days PRN 60 caps 5RF cough sulfamethoxazole-trimethoprim 800-160 mg (Bactrim DS) 1 tab PO Q12H 10 days 20 tabs 0RF codeine-guaifenesin 10-100 mg/5 mL 10 mL PO Q6H 10 days PRN 300 mL 0RF cough Coding Level of Care Code Est Pt Level 4 (15825) Diagnoses Chronic obstructive pulmonary disease with acute lower respiratory infection J44.0 COPD type: COPD with acute lower respiratory infection Dyspnea on exertion R06.00 Dyspnea type: dyspnea on exertion Pulmonary nodules R91.8 Cardiomyopathy, unspecified type I42.9 Cardiomyopathy type: unspecified Bronchitis J40 Time Spent (min) 18
== END 2023-08-11 10:42 | disposition home or self-care (01) ==
PROVIDERS: Visit Provider Hospitalist
DX: J44.0 Chronic obstructive pulmonary disease with (acute) lower respiratory infection (principal); R06.00 Dyspnea, unspecified; R91.8 Other nonspecific abnormal finding of lung field; I42.9 Cardiomyopathy, unspecified; J40 Bronchitis, not specified as acute or chronic
CPT/HCPCS: 99214

== ENCOUNTER → 2023-08-11 10:10 | Outpatient (BNVA) | payer MEDICARE, MEDICAID, SELFPAY | PROVIDERS: Visit Provider Hospitalist | DX: J44.0 Chronic obstructive pulmonary disease with (acute) lower respiratory infection (principal); R06.00 Dyspnea, unspecified; R91.8 Other nonspecific abnormal finding of lung field; J40 Bronchitis, not specified as acute or chronic; I42.9 Cardiomyopathy, unspecified | CPT/HCPCS: 99212 ==

== ENCOUNTER 2023-08-27 13:45 | Inpatient (IN) | payer MEDICARE, MEDICAID, SELFPAY ==
--- NOTE | ~2023-08-27 | XR_ITS ---
EXAMINATION: XR CHEST CLINICAL INFORMATION: Pneumonia. COMPARISON: Chest radiograph 08/07/2023. CT chest 08/01/2022. TECHNIQUE: Frontal view of the chest was obtained. FINDINGS: Increase perihilar bronchial wall thickening with equivocal early infiltrates. No dense consolidation. No pleural effusion or pneumothorax. Redemonstration of an anastomotic suture arielle projecting over the right lung base. Again noted multiple bilateral chronic rib deformities. No acute osseous findings. Compression deformities of the thoracic spine best seen on prior examinations. Pulmonary nodules described on CT chest from 08/01/2022 are too small to characterize by radiograph. XR/XR chest 1V IMPRESSION: Increased central bronchial wall thickening with equivocal early perihilar infiltrates, suggesting an atypical infectious/inflammatory process. Recommend follow-up imaging to ensure resolution.
[2023-08-27 15:04] VITALS: BP 121/64; PULSE 98; RESP 20; TEMP 36.6; O2SAT 89; BMI 20.9
--- NOTE | 2023-08-27 15:05 | ECG_ITS ---
Test Reason : DYSNEA Blood Pressure : / mmHG Vent. Rate : 093 BPM Atrial Rate : 093 BPM P-R Int : 138 ms QRS Dur : 116 ms QT Int : 366 ms P-R-T Axes : 079 -64 097 degrees QTc Int : 455 ms Normal sinus rhythm Left anterior fascicular block Nonspecific T wave abnormality Lateral leads Left ventricular hypertrophy with QRS widening and repolarization abnormality ( R in aVL , [place] product ) Abnormal ECG No previous ECGs available Referred By: Trung Delacruz Electronically Signed By:BRENDEN KENT MD
--- NOTE | 2023-08-27 15:10 | ED_ITS ---
HPI - General Adult General Chief complaint: Dyspnea Stated complaint: Congestion, headache, sweating, cough Time Seen by Provider: 08/27/23 16:48 Source: patient and family Mode of arrival: ambulatory Limitations: no limitations History of Present Illness HPI narrative: 63yo m came in for evaluation of sob for past 10-15 days,with hx of asthma copd overlap syndrome, CHF, pneumonia, former smoker quit 30 yrs ago, use supplemental O2 2L prn, presented with sob and coughing with sore throat for past 10 days, patient received 2 courses of abx without full recovery, no cp now. no fever, no chills, no LE swelling. Related Data Home Medications Medication Instructions Recorded Confirmed cyclobenzaprine 10 mg tablet 10 mg PO BID PRN Muscle Spasm 11/07/20 08/27/23 denosumab 60 mg/mL subcutaneous mg subcut 06/12/21 08/07/23 syringe (Prolia) docusate sodium 100 mg capsule 200 mg PO BID PRN constipation 06/12/21 08/27/23 lorazepam 1 mg tablet 1 mg PO TID PRN anxiety 06/12/21 08/27/23 methadone 10 mg tablet 10 mg PO BID 12/03/21 08/27/23 cetirizine 10 mg tablet 10 mg PO DAILY Allergy Symptoms 10/31/22 08/27/23 nebulizers 01/08/23 07/20/23 ondansetron 4 mg disintegrating 4 mg PO Q6H PRN nausea/vomiting 01/08/23 08/27/23 tablet testosterone 1.62 % (20.25 mg/1.25 1 packet transdermal DAILY 07/22/23 08/27/23 gram) transdermal gel packet nystatin 100,000 unit/mL oral 5 ml PO QID PRN thrush 07/23/23 08/27/23 suspension immune glob,gamm(IgG) 10%-sorb-IgA ml IV Q28D 08/27/23 0 to 50 mcg/mL intravenous solution lisinopril 20 mg tablet 20 mg PO DAILY 08/27/23 08/27/23 metoprolol succinate 100 mg 100 mg PO DAILY 08/27/23 08/27/23 tablet,extended release 24 hr pantoprazole 40 mg tablet,delayed 40 mg PO DAILY pain 08/27/23 08/27/23 release revefenacin 175 mcg/3 mL solution 175 mcg inhalation BID 08/27/23 08/27/23 for nebulization (Yupelri) Previous Rx's Medication Instructions Recorded roflumilast 500 mcg tablet 500 mcg PO DAILY #90 tabs 06/09/23 (Daliresp) codeine 10 mg-guaifenesin 100 mg/5 10 ml PO Q6H PRN cough 10 days 08/11/23 mL oral liquid #300 mL albuterol sulfate 2.5 mg/3 mL 2.5 mg (3 mL) inhalation Q4H PRN 08/13/23 (0.083 %) solution for nebulization for wheezing #150 mL albuterol sulfate 90 mcg/actuation 2 puff inhalation Q4H PRN for 08/13/23 aerosol inhaler wheezing #1 ea arformoterol 15 mcg/2 mL solution 2 ml inhalation BID #120 mL 08/13/23 for nebulization budesonide 0.5 mg/2 mL suspension 0.5 mg (2 mL) inhalation BID 30 08/13/23 for nebulization days #120 mL Allergies Allergy/AdvReac Type Severity Reaction Status Date / Time ciprofloxacin [From Cipro] Allergy Severe Redness Verified 08/11/23 10:20 on Face levofloxacin [From Levaquin] Allergy Severe Swelling Verified 08/11/23 10:20 in the Joints hydromorphone [From Dilaudid] AdvReac Intermediate Anxiety Verified 08/11/23 10:20 Review of Systems 2 Review of Systems: All other systems are reviewed and are negative Constitutional: Reports as per HPI and Reports no additional constitutional complaints Eyes: Reports as per HPI and Reports no additional eye complaints Reports system reviewed and no additional complaints, except as documented Cardiovascular: Reports as per HPI and Reports no additional cardiovascular complaints Respiratory: Reports as per HPI and Reports no additional respiratory complaints Gastrointestinal: Reports as per HPI and Reports no additional gastrointestinal complaints Genitourinary: Reports no additional female genitourinary complaints Musculoskeletal: Reports no additional musculoskeletal complaints Skin/Breast: Reports system reviewed and no additional complaints, except as docu Psychiatric: Reports no additional psychiatric complaints Endocrine: Reports no additional endocrine complaints Hematologic/Lymphatic: Reports no additional hematologic/lymphatic complaints Allergic/Immunologic: Reports no additional allergic/immunologic complaints Reports system reviewed and no additional complaints, except as documented and Reports Abnormal speech present [facility] Past Medical History Medical History Chondrocalcinosis Chronic neck and back pain Asthma Asthma-COPD overlap syndrome Asthma FH: bowel obstruction Bronchitis Pulmonary nodules Back pain Dyspnea COPD (chronic obstructive pulmonary disease) Surgical History Hx of colonoscopy History of esophagogastroduodenoscopy (EGD) History of partial colectomy History of hernia repair History of lung biopsy Family History Family History Mother History of lung cancer Social History Social History Household Members: Family Housing: House Do you presently have visiting nurse or other home services: Yes (retail [employer] [facility] 5 days/week) Alcohol intake: former Patient Tobacco Use Status: Former Tobacco user Quit Date: 1992 Tobacco use type: Cigarette Years Smoked: 15 years Substance Use Type: Marijuana Current occupational status: disabled Physical Exam ED Vital Signs: Vital Signs - 24 hr 08/27/23 15:04 08/27/23 15:30 08/27/23 17:56 Temperature 98 F 98.2 F Pulse Rate 98 103 H 95 Respiratory Rate 20 20 18 Blood Pressure 121/64 108/69 Pulse Oximetry 89 L 98 97 Oxygen Delivery Method Room Air Nasal Cannula Nasal Cannula Oxygen Flow Rate 1 08/27/23 18:12 Temperature 98.4 F Pulse Rate 77 Respiratory Rate 16 Blood Pressure 104/55 L Pulse Oximetry 94 Oxygen Delivery Method Nasal Cannula Oxygen Flow Rate 1 BMI result Body Mass Index 20.9 Vital signs have been reviewed and appear to be correct. Blood pressure elevated. Heart rate normal. Respiratory rate normal. Temperature normal. Oxygen saturation normal. Appearance: Alert. Oriented X3. No acute distress. Head: Normal external exam. Normocephalic. Atraumatic. No Dalal signs noted. No raccoon eyes noted Eyes: PERRLA. EOMI. Conjunctiva and sclera normal. Eyelids normal. ENT: TM's Normal. Pharynx normal. Uvula midline. Moist mucous membranes. No trismus noted. No drooling noted. No muffled voice noted. Neck: Normal inspection. Neck supple. FROM. No adenopathy. Thyroid Normal. No meningeal signs. No neck mass noted. CVS: Normal heart rate and rhythm. Heart sound normal. No murmurs noted. Pulses normal throughout. Respiratory: No respiratory distress. Painless inspiration. Breath sounds normal. No wheezes/rales/rhonchi noted. Chest nontender. No accessory muscle usage noted or decreased air movement noted. Abdomen: Soft and nontender. Bowel sounds normal in all 4 quadrants. No distention noted. No organomegaly noted. No visible injury noted. Back: No CVA tenderness. Full range of motion noted. Skin: Skin warm and dry. Normal skin color. Normal skin turgor. No rashes/lesions/lacerations noted. Extremities: No lower extremity edema. Extremities exhibit normal range of motion. Extremities nontender. Neuro: Oriented X 3. Cranial nerve exam: II-XII are grossly intact No motor deficit. No sensory deficit. Reflexes normal. Course Course Course Narrative: RME: 63 yold male with pmh of ChF, COPD, Pneumonia. presents to the ED for shorntess of breath and two round of antiboitics while having pneumonia and still having symptoms. Patient brought to the ED room 2. Labs, imaging, and ordered placed. Reevaluation(s) Reevaluation #1: Initial sodium was 163 with anion gap of 26 felt to be a lab error repeat labs showed normal sodium of 136. Will discontinue D5W and continue with normal saline instead, patient meets criteria for SIRS but no septic shock or severe sepsis patient tried 2 course of antibiotic as an outpatient without relief of his symptoms, chest x-ray is consistent with early infiltrate patient met criteria for SIRS by heart rate and elevated white count. Start the patient on Zosyn and IV hydration. Time: 18:52 Medications Administered Generic Name Dose Route Start Last Admin Trade Name Freq PRN Reason Stop Dose Admin Acetaminophen 650 mg 08/27/23 19:06 08/28/23 00:26 Acetaminophen 325 Mg Tablet PO 650 mg Q6H PRN Administration Pain, Mild (Pain Scale 1-3) Albuterol/Ipratropium 3 ml 08/27/23 19:06 08/28/23 03:46 Albuterol/Iprat 2.5/0.5mg 3 Ml Ampul.Neb INHALE 3 ml Q4H PRN Administration Wheezing Budesonide 0.5 mg 08/27/23 20:00 08/28/23 08:25 Budesonide 0.5 Mg/2 Ml Ampul.Neb INHALE Not Given RBID JAMES Cyclobenzaprine HCl 10 mg 08/27/23 19:17 08/27/23 21:28 Cyclobenzaprine Hcl 10 Mg Tablet PO 10 mg BID PRN Administration Muscle Spasm Docusate Sodium 200 mg 08/27/23 19:17 08/27/23 21:28 Docusate Sodium 100 Mg Capsule PO 200 mg BID PRN Administration constipation Enoxaparin Sodium 40 mg 08/27/23 20:00 08/27/23 21:33 Enoxaparin Sodium 40 Mg/0.4 Ml Syringe SUBCUT Not Given Q24H JAMES Guaifenesin/Codeine Phosphate 10 ml 08/27/23 19:17 08/28/23 03:43 Guaifen/Codeine Sf 200/20/10ml 10 Ml Liquid PO 10 ml Q6H PRN Administration cough Ceftriaxone Sodium 1 gm/ 50 mls @ 100 mls/hr 08/27/23 22:00 08/27/23 21:53 Sodium Chloride IV Infused Q24H JAMES Infusion Azithromycin 500 mg/ Sodium 250 mls @ 125 mls/hr 08/27/23 20:00 08/27/23 22:13 Chloride IV Infused Q24H JAMES Infusion Loratadine 10 mg 08/28/23 09:00 08/28/23 09:03 Loratadine 10 Mg Tablet PO 10 mg DAILY JAMES Administration Lorazepam 1 mg 08/27/23 19:17 08/27/23 21:28 Lorazepam 1 Mg Tablet PO 1 mg TID PRN Administration anxiety Melatonin 6 mg 08/27/23 19:06 08/28/23 00:27 Melatonin 3 Mg Tablet PO 6 mg BEDTIME PRN Administration Insomnia Methadone HCl 10 mg 08/27/23 21:00 08/28/23 09:03 Methadone Hcl 10 Mg Tablet PO 10 mg BID JAMES Administration Methylprednisolone Sodium Succinate 40 mg 08/27/23 20:00 08/28/23 09:03 Methylprednisolone Sod Succ 40 Mg/Ml Vial IVPUSH 40 mg Q12H JAMES Administration Pt Own (Arformoterol 2 ml 08/27/23 20:20 08/28/23 08:24 15 Mcg/2 Ml INHALE Not Given Solution For RBID JAMES Nebulization) Pt Own (Revefenacin 175 mcg 08/27/23 20:20 08/28/23 08:25 [Yupelri] 175 Mcg/3 INHALE Not Given Ml Solution For RBID JAMES Nebulization) Omeprazole 20 mg 08/28/23 06:30 08/28/23 06:38 Omeprazole 20 Mg Capsule. PO 20 mg DAILY@0630 JAMES Administration Roflumilast 500 mcg 08/28/23 09:00 08/28/23 09:03 Roflumilast 500 Mcg Tablet PO 500 mcg DAILY JAMES Administration Sodium Chloride 3 ml 08/28/23 00:00 08/28/23 09:04 0.9 % Sodium Chloride Flush 3 Ml Syringe IVFLUSH 3 ml QSHIFT JAMES Administration Discontinued Medications Generic Name Dose Route Start Last Admin Trade Name Freq PRN Reason Stop Dose Admin Albuterol/Ipratropium 3 ml 08/27/23 20:00 08/28/23 08:23 Albuterol/Iprat 2.5/0.5mg 3 Ml Ampul.Neb INHALE Not Given RQ4H [facility] Piperacillin Sod/Tazobactam 50 mls @ 100 mls/hr 08/27/23 17:09 08/27/23 18:02 Sod 3.375 gm/ Sodium Chloride IV 08/27/23 17:38 Infused ONCE ONE Infusion Dextrose 1,000 mls @ 150 mls/hr 08/27/23 17:30 08/27/23 20:54 D5w IVCONT 08/28/23 06:25 Infused .Q6H40M JAMES Infusion Sodium Chloride 1,000 mls @ 999 mls/hr 08/27/23 18:56 08/27/23 21:07 Ns IV 08/27/23 19:56 Not Given .Q1H1M ONE Methadone HCl 10 mg 08/27/23 17:00 08/27/23 17:06 Methadone Hcl 20 Mg/2 Ml Oral.Conc PO 08/27/23 17:01 10 mg ONCE ONE Administration Tramadol HCl 50 mg 08/28/23 00:18 08/28/23 00:25 Tramadol Hcl 50 Mg Tablet PO 08/28/23 00:19 50 mg ONCE ONE Administration Medical Decision Making Differential Diagnosis Differential Diagnoses: The differential diagnosis associated with the presentation includes (Pneumonia, pneumothorax, pleural effusion, sepsis, electrolyte abnormality, dehydration, severe anemia.) Admission/Observation Consideration of admission/observation: Escalation of care including admission/observation considered Consult Healthcare Provider Management of the patient was discussed with: Hospitalist (Dr. Espinal) Lab Data MDM Lab Attestation statement: I reviewed the patient's lab results. 08/28/23 05:14 08/28/23 05:14 Labs: Lab Results 08/27/23 08/27/23 08/27/23 Range/Units 16:43 17:03 18:10 WBC 17.9 H (4.8-10.8) X10*3/uL RBC 4.91 (4.60-5.80) X10*6/uL Hgb 14.5 (14.0-18.0) g/dl Hct 44.3 (42.0-52.0) % MCV 90.2 (80.0-98.0) fL MCH 29.5 (27.0-33.0) pg MCHC 32.7 (31.0-36.0) g/dl RDW 13.7 (11.0-16.0) % Plt Count 290 (160-400) X10*3/uL MPV 9.3 L (9.4-12.4) fL Immature Gran % (Auto) 0.4 (0.0-0.4) % Neut % (Auto) 83.6 H (45-73) % Lymph % (Auto) 7.2 L (20-40) % [place] % (Auto) 6.7 (2-11) % Eos % (Auto) 1.8 (0-4) % Baso % (Auto) 0.3 (0-2) % Lymph # (Auto) 1.3 (1.2-4.9) X10*3/uL [place] # (Auto) 1.2 (0.1-1.2) X10*3/uL Eos # (Auto) 0.3 (0.0-0.4) X10*3/uL Baso # (Auto) 0.1 (0.0-0.2) X10*3/uL Abs Immat Gran (auto) 0.08 H (0.00-0.03) X10*3/uL Absolute Neuts (auto) 15.0 H (2.0-8.3) x10*3/uL Absolute Nucleated RBC 0.000 (0.0-0.012) X10*3/uL Nucleated RBC % (auto) 0.0 (0.0-0.2) /100WBC PT 12.3 (11.1-13.3) SEC INR 1.0 (0.9-1.1) APTT 32.9 (26.0-36.4) SEC Sodium 162 H* 136 (135-145) mmol/L Potassium 4.2 4.3 (3.3-5.1) mmol/L Chloride 86 L 103 (96-108) mmol/L Carbon Dioxide 16 L 25 (22-29) mmol/L Anion Gap 64 H 12 (12-20) BUN 12 13 (9-16) mg/dL Creatinine 0.78 0.86 (0.5-1.4) mg/dL Estim Creat Clear Calc 74.3 67.4 Estimated GFR > 60 > 60 Random Glucose 72 115 (60-115) mg/dL Lactic Acid 2.3 H* (0.5-2.0) mmol/L Calcium 7.5 L D 8.9 D (8.4-10.2) mg/dL Total Bilirubin 0.3 0.5 (0.0-1.0) mg/dL Direct Bilirubin 0.2 (0.0-0.5) mg/dL AST 15 15 (5-37) U/L ALT 11 12 (0-40) U/L Alkaline Phosphatase 52 59 (39-117) U/L Troponin I High Sens 3.9 (<3.5-35.0) ng/L B-Natriuretic Peptide 86 (<100) pg/mL Total Protein 6.2 L 6.8 (6.5-8.0) g/dL Albumin 3.1 L 3.4 L (3.5-5.0) g/dL Lipase 13 (8-78) U/L Urine Color Urine Appearance Urine pH (5.0-9.0) Ur Specific [place] (1.005-1.025) Urine Protein (Neg-Trace) mg/dL Urine Glucose (UA) (Negative) mg/dL Urine Ketones (Negative) mg/dL Urine Blood (Negative) Urine Nitrite (Negative) Ur Leukocyte Esterase (Negative) Urine RBC (0-2) /HPF Urine WBC (0-5) /HPF Ur Squamous Epith Cells (0-2) /HPF Urine Bacteria (None Seen) Hyaline Casts (0-2) /LPF Salicylates < 5.0 L (15-30) mg/dL Urine Opiates Screen (Not Detect) Urine Fentanyl Screen (Not Detect) Acetaminophen < 3 (<30) mcg/mL Ur Barbiturates Screen (Not Detect) Ur Phencyclidine Scrn (Not Detect) Ur Amphetamines Screen (Not Detect) U Benzodiazepines Scrn (Not Detect) Urine Cocaine Screen (Not Detect) U Marijuana (THC) Screen (Not Detect) Influenza Type A (PCR) NEGATIVE (Negative) Influenza Type B (PCR) NEGATIVE (Negative) RSV RNA Qual (PCR) NEGATIVE (Negative) SARS-CoV-2 RNA (RT-PCR) NEGATIVE (Negative) S. pyogenes GrpA KAVON Negative (Negative) 08/27/23 Range/Units 18:47 WBC (4.8-10.8) X10*3/uL RBC (4.60-5.80) X10*6/uL Hgb (14.0-18.0) g/dl Hct (42.0-52.0) % MCV (80.0-98.0) fL MCH (27.0-33.0) pg MCHC (31.0-36.0) g/dl RDW (11.0-16.0) % Plt Count (160-400) X10*3/uL MPV (9.4-12.4) fL Immature Gran % (Auto) (0.0-0.4) % Neut % (Auto) (45-73) % Lymph % (Auto) (20-40) % [place] % (Auto) (2-11) % Eos % (Auto) (0-4) % Baso % (Auto) (0-2) % Lymph # (Auto) (1.2-4.9) X10*3/uL [place] # (Auto) (0.1-1.2) X10*3/uL Eos # (Auto) (0.0-0.4) X10*3/uL Baso # (Auto) (0.0-0.2) X10*3/uL Abs Immat Gran (auto) (0.00-0.03) X10*3/uL Absolute Neuts (auto) (2.0-8.3) x10*3/uL Absolute Nucleated RBC (0.0-0.012) X10*3/uL Nucleated RBC % (auto) (0.0-0.2) /100WBC PT (11.1-13.3) SEC INR (0.9-1.1) APTT (26.0-36.4) SEC Sodium (135-145) mmol/L Potassium (3.3-5.1) mmol/L Chloride (96-108) mmol/L Carbon Dioxide (22-29) mmol/L Anion Gap (12-20) BUN (9-16) mg/dL Creatinine (0.5-1.4) mg/dL Estim Creat Clear Calc Estimated GFR Random Glucose (60-115) mg/dL Lactic Acid (0.5-2.0) mmol/L Calcium (8.4-10.2) mg/dL Total Bilirubin (0.0-1.0) mg/dL Direct Bilirubin (0.0-0.5) mg/dL AST (5-37) U/L ALT (0-40) U/L Alkaline Phosphatase (39-117) U/L Troponin I High Sens (<3.5-35.0) ng/L B-Natriuretic Peptide (<100) pg/mL Total Protein (6.5-8.0) g/dL Albumin (3.5-5.0) g/dL Lipase (8-78) U/L Urine Color Yellow Urine Appearance Clear Urine pH 5.5 (5.0-9.0) Ur Specific [place] 1.025 (1.005-1.025) Urine Protein 30 (1+) H (Neg-Trace) mg/dL Urine Glucose (UA) Negative (Negative) mg/dL Urine Ketones Negative (Negative) mg/dL Urine Blood Negative (Negative) Urine Nitrite Negative (Negative) Ur Leukocyte Esterase Negative (Negative) Urine RBC 0-2 (0-2) /HPF Urine WBC 0-5 (0-5) /HPF Ur Squamous Epith Cells 0-2 (0-2) /HPF Urine Bacteria None Seen (None Seen) Hyaline Casts 0-2 (0-2) /LPF Salicylates (15-30) mg/dL Urine Opiates Screen POSITIVE H (Not Detect) Urine Fentanyl Screen Not Detected (Not Detect) Acetaminophen (<30) mcg/mL Ur Barbiturates Screen Not Detected (Not Detect) Ur Phencyclidine Scrn Not Detected (Not Detect) Ur Amphetamines Screen Not Detected (Not Detect) U Benzodiazepines Scrn Not Detected (Not Detect) Urine Cocaine Screen Not Detected (Not Detect) U Marijuana (THC) Screen POSITIVE H (Not Detect) Influenza Type A (PCR) (Negative) Influenza Type B (PCR) (Negative) RSV RNA Qual (PCR) (Negative) SARS-CoV-2 RNA (RT-PCR) (Negative) S. pyogenes GrpA KAVON (Negative) Independent Interpretation I performed an independent interpretation of an: Plain X-Ray (Chest:Increased central bronchial wall thickening with equivocal early perihilar infiltrates, suggesting an atypical infectious/inflammatory process. Recommend follow-up imaging to ensure resolution.) Radiology Impression Discussion of test interpretation with radiology: I have reviewed the radiologist's reading. Chronic Conditions Patient?s care impacted by: Other (COPD, pneumonia.) Discharge Plan Discharge Clinical Impression: COPD (chronic obstructive pulmonary disease), Pneumonia Patient Disposition: Admitted As Inpatient Discharge Date/Time: 08/27/23 20:34
--- NOTE | 2023-08-27 15:19 | PC.NURSE ---
Patient reports has been sick for the last few weeks but has been having worsening sob for the last few days. not on home 02 but hx of chf, copd, and sleep apnea. CVID with infusions every 28 days at [facility]. Patient without chest pain. Reports headache and chronic lower back pain.
[2023-08-27 15:30] VITALS: BP 108/69; PULSE 103; RESP 20; TEMP 36.8; O2SAT 98
[2023-08-27 16:51] LABS: MANUAL DIFF FLAG NO
--- NOTE | 2023-08-27 16:51 | MHC.EDTECH ---
THIS pct assumed care of Pt at 1500 ,Pt was hooked up to dye range operator ,ekg taken and was read by Provider ,vitals done ,Pt very difficult stick ,Blood culture drawn including blood culture and lactic acid ,Pt comfortable ,no apparent distress noted ,Pt and daughter at bedside ,Call nuñez within Pt reach .
[2023-08-27 16:59] LABS: Basophils Absolute Auto 0.1 X10*3/uL (0.0-0.2); Basophils Percent Auto 0.3 % (0-2); Eosinophils Absolute Auto 0.3 X10*3/uL (0.0-0.4); Eosinophils Percent Auto 1.8 % (0-4); Hematocrit 44.3 % (42.0-52.0); Hemoglobin 14.5 g/dl (14.0-18.0); Imm Gran Abs Auto 0.08 X10*3/uL (0.00-0.03); Imm Gran Pct Auto 0.4 % (0.0-0.4); Lymphocytes Absolute Auto 1.3 X10*3/uL (1.2-4.9); Lymphocytes Percent Auto 7.2 % (20-40); Mean Corpuscular HGB Conc 32.7 g/dl (31.0-36.0); Mean Corpuscular Hemoglobin 29.5 pg (27.0-33.0); Mean Corpuscular Volume 90.2 fL (80.0-98.0); Mean Platelet Volume 9.3 fL (9.4-12.4); Monocytes Absolute Auto 1.2 X10*3/uL (0.1-1.2); Monocytes Percent Auto 6.7 % (2-11); Neutrophils Percent Auto 83.6 % (45-73); Platelet Count 290 X10*3/uL (160-400); Red Blood Count 4.91 X10*6/uL (4.60-5.80); Red Cell Distribution Width 13.7 % (11.0-16.0); White Blood Count 17.9 X10*3/uL (4.8-10.8)
[2023-08-27] MEDS: methADONE HCl 20 MG/2 ML ORAL.CONC 10 MG PO (17:06)
[2023-08-27 17:12] LABS: Alanine Aminotransferase 11 U/L (0-40); Albumin Level 3.1 g/dL (3.5-5.0); Alkaline Phosphatase 52 U/L (39-117); Anion Gap 64 (12-20); Aspartate Amino Transferase 15 U/L (5-37); Bilirubin Total 0.3 mg/dL (0.0-1.0); Blood Urea Nitrogen 12 mg/dL (9-16); Calcium 7.5 mg/dL (8.4-10.2); Carbon Dioxide 16 mmol/L (22-29); Chloride 86 mmol/L (96-108); Creatinine Clr Calc Pharmacy 74.3; Estimated Glomerular Filt Rate > 60; Glucose Random 72 mg/dL (60-115); Lactic Acid 2.3 mmol/L (0.5-2.0); Potassium 4.2 mmol/L (3.3-5.1); Sodium 162 mmol/L (135-145); Total Protein 6.2 g/dL (6.5-8.0)
[2023-08-27 17:13] LABS: B Type Natriuretic Peptide 86 pg/mL (<100)
[2023-08-27 17:14] LABS: Troponin-I High Sensitivity 3.9 ng/L (<3.5-35.0)
[2023-08-27 17:17] LABS: Prothrombin Time 12.3 SEC (11.1-13.3)
[2023-08-27 17:19] LABS: Partial Thromboplastin Time 32.9 SEC (26.0-36.4)
[2023-08-27] MEDS: Piperacillin Sodium/Tazobactam 3.375 GM in 0.9 % Sodium Chloride 50 ML IV (17:30)
[2023-08-27] MEDS: Dextrose 5 % 1,000 ML 200 ML IVCONT (17:53)
[2023-08-27 17:56] VITALS: PULSE 95; RESP 18; O2SAT 97
[2023-08-27 18:12] VITALS: BP 104/55; PULSE 77; RESP 16; TEMP 36.9; O2SAT 94
--- NOTE | 2023-08-27 18:13 | MHC.EDTECH ---
Repeated blood drawn and sent to lab ,vitals .
--- NOTE | 2023-08-27 18:21 | PHA.MEDREC ---
Pharmacy Consult ? Medication Reconciliation Pharmacy has completed the medication reconciliation. Patient's daughter had list of medications. Made patient aware we do not have Brovana, Revenacon, and testosterone on formulary therefore it will need to be brought in. Patient is take Methadone twice a day for pain, per PDMP patient filled 168 tablets for a 28 day supply which would be 6 tablets a day on 05/28/23, patient is taking less than prescribed. Patient dropped on Brovana, Yupelri and Budesonide on 08/27/23 @ 2819. Medication will be stored in pharmacy until ordered by provider. Ángela Hill, JcD
[2023-08-27 18:27] LABS: IDNOW Serial# 08D9AD1C; Strep A Nucleic Acid Negative (Negative)
[2023-08-27 18:33] LABS: Acetaminophen LAB < 3 mcg/mL (<30); Salicylate < 5.0 mg/dL (15-30)
[2023-08-27 18:43] LABS: Alanine Aminotransferase 12 U/L (0-40); Albumin Level 3.4 g/dL (3.5-5.0); Alkaline Phosphatase 59 U/L (39-117); Anion Gap 12 (12-20); Aspartate Amino Transferase 15 U/L (5-37); Bilirubin Direct 0.2 mg/dL (0.0-0.5); Bilirubin Total 0.5 mg/dL (0.0-1.0); Blood Urea Nitrogen 13 mg/dL (9-16); Calcium 8.9 mg/dL (8.4-10.2); Carbon Dioxide 25 mmol/L (22-29); Chloride 103 mmol/L (96-108); Creatinine Clr Calc Pharmacy 67.4; Estimated Glomerular Filt Rate > 60; Glucose Random 115 mg/dL (60-115); Lipase 13 U/L (8-78); Potassium 4.3 mmol/L (3.3-5.1); Sodium 136 mmol/L (135-145); Total Protein 6.8 g/dL (6.5-8.0)
--- NOTE | 2023-08-27 18:49 | MHC.EDTECH ---
Patient urine sample collected and sent to lab ,Pt had a tuna fish sandwich and gagandeep alexis for dinner .
[2023-08-27 18:50] LABS: Reflex Lactate? Lactic Acid Added
[2023-08-27 18:54] LABS: Appearance Urine Clear; Color Urine Yellow; Glucose Urine UA Negative (Negative); Leukocyte Esterase Urine Negative (Negative); Nitrite Urine Negative (Negative); PH 5.5 (5.0-9.0); Specific Gravity - Urine 1.025 (1.005-1.025); UMIC TRIGGER UACC YES; Urine Blood Negative (Negative); Urine Ketones Negative (Negative); Urine Protein 30 (1+) mg/dL (Neg-Trace)
[2023-08-27 18:57] LABS: Influenza A PCR NEGATIVE (Negative); Influenza B PCR NEGATIVE (Negative); Resp Syncy Virus RNA Qual PCR NEGATIVE (Negative); SARS COV2 PCR INHOUSE NEGATIVE (Negative)
[2023-08-27 18:57] LABS: Bacteria Urine None Seen (None Seen); Hyaline Casts Urine 0-2 /LPF (0-2); RBC Urine 0-2 /HPF (0-2); Squamous Epithelial Cell Urine 0-2 /HPF (0-2); WBC Urine 0-5 /HPF (0-5)
[2023-08-27 19:00] LABS: Amphetamine Screen Urine Not Detected (Not Detect); Barbiturates, Urine Not Detected (Not Detect); Benzodiazepines Screen Urine Not Detected (Not Detect); Cannabinoid Screen Urine POSITIVE (Not Detect); Cocaine Screen Urine Not Detected (Not Detect); Fentanyl, urine Not Detected (Not Detect); Opiate Screen Urine POSITIVE (Not Detect); Phencyclidine Screen Urine Not Detected (Not Detect)
--- NOTE | 2023-08-27 19:10 | PM.IMHP ---
History of Present Illness Date of Service: 08/27/23 Chief Complaint: Dyspnea This is a 63-year-old male with pertinent history of chronic hypoxemic respiratory failure due to COPD on 2 L baseline home oxygen, former tobacco use disorder, essential hypertension, mood disorder, opioid use disorder on methadone, gastroesophageal reflux disease who presents to the emergency department for evaluation of dyspnea. Patient states he has been having dyspnea worse with progression that has been ongoing for the last 2-3 weeks. Dyspnea persists despite home inhaler and home oxygen supplementation. Also has been having wheezing and cough with yellowish sputum production. No fever or chills. No chest discomfort, palpitations, abdominal pain, changes in urinary or bowel habits. In the emergency department, patient was found to be septic and imaging concerning for pneumonia. Review of Systems Constitutional: Constitutional: Reports fatigue and Reports lethargy Cardiovascular: Cardiovascular: Reports dyspnea on exertion Respiratory: Respiratory: Reports cough, Reports dyspnea on exertion and Reports wheezing Gastrointestinal: Gastrointestinal: Reports no additional gastrointestinal complaints Genitourinary: Genitourinary: Reports no additional male genitourinary complaints Endocrine: Endocrine: Reports fatigue Allergic/Immunologic: Allergic/Immunologic: Reports wheezing REPLACED BY [facility] Medical History Chondrocalcinosis Chronic neck and back pain Asthma Asthma-COPD overlap syndrome Asthma FH: bowel obstruction Bronchitis Pulmonary nodules Back pain Dyspnea COPD (chronic obstructive pulmonary disease) Family History Mother History of lung cancer Surgical History Hx of colonoscopy History of esophagogastroduodenoscopy (EGD) History of partial colectomy History of hernia repair History of lung biopsy Social History Household Members: Family Alcohol intake: former Patient Tobacco Use Status: Former Tobacco user Tobacco use type: Cigarette Years Smoked: 15 years Smoked in Last 30 Days: No Use of substances other than those prescribed or required for medical reasons: Yes Substance Use Type: Marijuana Advance Directives: No Current occupational status: disabled Meds Allergies Allergy/AdvReac Type Severity Reaction Status Date / Time ciprofloxacin [From Cipro] Allergy Severe Redness Verified 08/11/23 10:20 on Face levofloxacin [From Levaquin] Allergy Severe Swelling Verified 08/11/23 10:20 in the Joints hydromorphone [From Dilaudid] AdvReac Intermediate Anxiety Verified 08/11/23 10:20 Active Medications: Current Medications Sodium Chloride (Ns) 1,000 mls @ 999 mls/hr IV .Q1H1M ONE Stop: 08/27/23 19:56 Home Medications Medication Instructions Recorded Confirmed Last Taken Type cyclobenzaprine 10 mg tablet 10 mg PO BID PRN Muscle Spasm 11/07/20 08/27/23 Unknown History denosumab 60 mg/mL subcutaneous mg subcut 06/12/21 08/07/23 Unknown History syringe (Prolia) docusate sodium 100 mg capsule 200 mg PO BID PRN constipation 06/12/21 08/27/23 Unknown History lorazepam 1 mg tablet 1 mg PO TID PRN anxiety 06/12/21 08/27/23 Unknown History methadone 10 mg tablet 10 mg PO BID 12/03/21 08/27/23 Unknown History cetirizine 10 mg tablet 10 mg PO DAILY Allergy Symptoms 10/31/22 08/27/23 Unknown History nebulizers 01/08/23 07/20/23 Unknown History ondansetron 4 mg disintegrating 4 mg PO Q6H PRN nausea/vomiting 01/08/23 08/27/23 Unknown History tablet testosterone 1.62 % (20.25 mg/1.25 1 packet transdermal DAILY 07/22/23 08/27/23 Unknown History gram) transdermal gel packet nystatin 100,000 unit/mL oral 5 ml PO QID PRN thrush 07/23/23 08/27/23 Unknown History suspension immune glob,gamm(IgG) 10%-sorb-IgA ml IV Q28D 08/27/23 Unknown History 0 to 50 mcg/mL intravenous solution lisinopril 20 mg tablet 20 mg PO DAILY 08/27/23 08/27/23 Unknown History metoprolol succinate 100 mg 100 mg PO DAILY 08/27/23 08/27/23 Unknown History tablet,extended release 24 hr pantoprazole 40 mg tablet,delayed 40 mg PO DAILY pain 08/27/23 08/27/23 Unknown History release revefenacin 175 mcg/3 mL solution 175 mcg inhalation BID 08/27/23 08/27/23 Unknown History for nebulization (Yupelri) Physical Exam Vital Signs and Narrative: Vital Signs: Last Vital Signs Temp 98.4 F 08/27/23 18:12 Pulse 77 08/27/23 18:12 Resp 16 08/27/23 18:12 BP 104/55 L 08/27/23 18:12 Pulse Ox 94 08/27/23 18:12 O2 Del Method Nasal Cannula 08/27/23 18:12 O2 Flow Rate 1 08/27/23 18:12 BMI result Body Mass Index 20.9 Middle-aged male lying in bed in mild distress on supplemental oxygen Neck supple, no JVD Regular rate and rhythm, S1-S2 heard Bilateral wheezing appreciated Abdomen soft nontender, no guarding, no rigidity Patient is awake, alert and oriented to self, place, time and person ; no focal motor deficit Psych: Normal mood No pedal edema Results Labs 08/27/23 16:43 08/27/23 18:10 Labs: Laboratory Results - last 24 hr 08/27/23 08/27/23 08/27/23 16:43 17:03 18:10 MCV 90.2 MCH 29.5 MCHC 32.7 RDW 13.7 Plt Count 290 MPV 9.3 L Immature Gran % (Auto) 0.4 Neut % (Auto) 83.6 H Lymph % (Auto) 7.2 L [place] % (Auto) 6.7 Eos % (Auto) 1.8 Baso % (Auto) 0.3 Lymph # (Auto) 1.3 [place] # (Auto) 1.2 Eos # (Auto) 0.3 Baso # (Auto) 0.1 Abs Immat Gran (auto) 0.08 H Absolute Neuts (auto) 15.0 H Absolute Nucleated RBC 0.000 Nucleated RBC % (auto) 0.0 PT 12.3 INR 1.0 APTT 32.9 Anion Gap 64 H 12 Estim Creat Clear Calc 74.3 67.4 Estimated GFR > 60 > 60 Random Glucose 72 115 Lactic Acid 2.3 H* Calcium 7.5 L D 8.9 D Total Bilirubin 0.3 0.5 Direct Bilirubin 0.2 AST 15 15 ALT 11 12 Alkaline Phosphatase 52 59 B-Natriuretic Peptide 86 Total Protein 6.2 L 6.8 Albumin 3.1 L 3.4 L Lipase 13 Urine Color Urine Appearance Urine pH Ur Specific [place] Urine Protein Urine Glucose (UA) Urine Ketones Urine Blood Urine Nitrite Ur Leukocyte Esterase Urine RBC Urine WBC Ur Squamous Epith Cells Urine Bacteria Hyaline Casts Salicylates < 5.0 L Urine Opiates Screen Urine Fentanyl Screen Acetaminophen < 3 Ur Barbiturates Screen Ur Phencyclidine Scrn Ur Amphetamines Screen U Benzodiazepines Scrn Urine Cocaine Screen U Marijuana (THC) Screen Influenza Type A (PCR) NEGATIVE Influenza Type B (PCR) NEGATIVE RSV RNA Qual (PCR) NEGATIVE SARS-CoV-2 RNA (RT-PCR) NEGATIVE S. pyogenes GrpA KAVON Negative 08/27/23 18:47 MCV MCH MCHC RDW Plt Count MPV Immature Gran % (Auto) Neut % (Auto) Lymph % (Auto) [place] % (Auto) Eos % (Auto) Baso % (Auto) Lymph # (Auto) [place] # (Auto) Eos # (Auto) Baso # (Auto) Abs Immat Gran (auto) Absolute Neuts (auto) Absolute Nucleated RBC Nucleated RBC % (auto) PT INR APTT Anion Gap Estim Creat Clear Calc Estimated GFR Random Glucose Lactic Acid Calcium Total Bilirubin Direct Bilirubin AST ALT Alkaline Phosphatase B-Natriuretic Peptide Total Protein Albumin Lipase Urine Color Yellow Urine Appearance Clear Urine pH 5.5 Ur Specific [place] 1.025 Urine Protein 30 (1+) H Urine Glucose (UA) Negative Urine Ketones Negative Urine Blood Negative Urine Nitrite Negative Ur Leukocyte Esterase Negative Urine RBC 0-2 Urine WBC 0-5 Ur Squamous Epith Cells 0-2 Urine Bacteria None Seen Hyaline Casts 0-2 Salicylates Urine Opiates Screen POSITIVE H Urine Fentanyl Screen Not Detected Acetaminophen Ur Barbiturates Screen Not Detected Ur Phencyclidine Scrn Not Detected Ur Amphetamines Screen Not Detected U Benzodiazepines Scrn Not Detected Urine Cocaine Screen Not Detected U Marijuana (THC) Screen POSITIVE H Influenza Type A (PCR) Influenza Type B (PCR) RSV RNA Qual (PCR) SARS-CoV-2 RNA (RT-PCR) S. pyogenes GrpA KAVON Imaging Radiologist's Impressions: Impressions Chest X-Ray 08/27/23 17:10 IMPRESSION: Increased central bronchial wall thickening with equivocal early perihilar infiltrates, suggesting an atypical infectious/inflammatory process. Recommend follow-up imaging to ensure resolution. Assessment and Plan (1) Pneumonia: Status: Acute Plan This is a 63-year-old male with pertinent history of chronic hypoxemic respiratory failure due to COPD on 2 L baseline home oxygen, former tobacco use disorder, essential hypertension, mood disorder, opioid use disorder on methadone, gastroesophageal reflux disease who presents to the emergency department for evaluation of dyspnea. #. Sepsis due to pneumonia: Will admit patient and initiate empiric IV antibiotics. Resuscitated with IV crystalloids. Blood culture and sputum culture pending. Lactic acid obtained. #. Acute respiratory distress on chronic hypoxemic respiratory failure due to acute exacerbation of COPD: Initiating systemic steroids. Scheduled and p.r.n. DuoNebs. Continue home inhaler #. Acute lactic acidosis due to sepsis: Resolved #. ?hypernatremia: Noted on initial labs but resolved on repeat labs. Likely lab error. #. Polysubstance use disorder: On methadone. UDS also positive for marijuana. Consulting Addiction Team #. Essential hypertension: Hold antihypertensives in the setting of sepsis. Resume as appropriate #. Mood disorder: Continue home antihypertensives #. Gastroesophageal reflux disease: On PPI DVT prophylaxis: Lovenox Admit as inpatient and will require two night minimum hospital stay for IV antibiotics (as above), which is not possible in a lesser acute setting. Quality Stroke Does the patient have a stroke diagnosis?: No VTE Prior VTE?: No VTE Risk Level:: Medical - moderate - high VTE Device Contraindication: Treatment Not Indicated VTE Drug Contraindication: N/A - Med Ordered
[2023-08-27 19:33] VITALS: BP 100/54; PULSE 82; RESP 16; O2SAT 98
--- NOTE | 2023-08-27 19:43 | MHC.EDTECH ---
Patient repeated lactic acid and sputim culture collected and sent to lab .
[2023-08-27] MEDS: Azithromycin 500 MG in 0.9 % Sodium Chloride 250 ML 125 MG IV (20:01)
[2023-08-27] MEDS: methylPREDNISolone Sod Succ 40 MG/ML VIAL IVPUSH (20:02)
[2023-08-27 20:03] LABS: ~Lactic Acid-LAB USE ONLY 0.9 mmol/L (0.5-2.0)
--- NOTE | 2023-08-27 20:23 | PC.NURSE ---
pt has own inhalers
--- NOTE | 2023-08-27 20:28 | PC.NURSE ---
spoke with resp therapy, pt refused his inhalers and duoneb
[2023-08-27 20:51] VITALS: BP 102/64; PULSE 95; RESP 16; TEMP 36.3; O2SAT 98
[2023-08-27 20:56] VITALS: BMI 20.9
[2023-08-27] MEDS: methADONE HCl 10 MG TABLET PO (21:20)
[2023-08-27] MEDS: cefTRIAXone sodium 1 GM in 0.9 % Sodium Chloride 50 ML IV (21:20)
[2023-08-27] MEDS: Cyclobenzaprine HCl 10 MG TABLET PO (21:28)
[2023-08-27] MEDS: LORazepam 1 MG TABLET PO (21:28)
[2023-08-27] MEDS: Docusate Sodium 100 MG CAPSULE 200 MG PO (21:28)
[2023-08-27] MEDS: guaiFEN/Codeine SF 200/20/10ML 10 ML LIQUID PO (21:30)
[2023-08-28] VITALS (7 sets, daily range): BP systolic 95–133; BP diastolic 53–78; PULSE 72–88; RESP 16–18; TEMP 36–36.3; O2SAT 95–97
[2023-08-28] MEDS: traMADoL HCL 50 MG TABLET PO (00:25)
[2023-08-28] MEDS: Acetaminophen 325 MG TABLET 650 MG PO (00:26)
[2023-08-28] MEDS: Melatonin 3 MG TABLET 6 MG PO (00:27)
[2023-08-28] MEDS: guaiFEN/Codeine SF 200/20/10ML 10 ML LIQUID PO ×2 (03:43→18:21)
[2023-08-28] MEDS: Albuterol/Iprat 2.5/0.5MG 3 ML AMPUL.NEB INHALE (03:46)
[2023-08-28 06:21] LABS: Basophils Percent Auto 0.1 % (0-2); Hematocrit 37.2 % (42.0-52.0); Hemoglobin 12.3 g/dl (14.0-18.0); Imm Gran Abs Auto 0.05 X10*3/uL (0.00-0.03); Imm Gran Pct Auto 0.4 % (0.0-0.4); Lymphocytes Absolute Auto 0.5 X10*3/uL (1.2-4.9); Lymphocytes Percent Auto 4.8 % (20-40); MANUAL DIFF FLAG SCAN; Mean Corpuscular HGB Conc 33.1 g/dl (31.0-36.0); Mean Corpuscular Hemoglobin 30.1 pg (27.0-33.0); Mean Corpuscular Volume 91.2 fL (80.0-98.0); Monocytes Absolute Auto 0.2 X10*3/uL (0.1-1.2); Monocytes Percent Auto 1.6 % (2-11); Neutrophils Absolute Auto 10.5 x10*3/uL (2.0-8.3); Neutrophils Percent Auto 93.1 % (45-73); Platelet Count 291 X10*3/uL (160-400); Red Blood Count 4.08 X10*6/uL (4.60-5.80); Red Cell Distribution Width 13.7 % (11.0-16.0); SCAN SMEAR FLAG 1; White Blood Count 11.3 X10*3/uL (4.8-10.8)
[2023-08-28 06:36] LABS: Anion Gap 10 (12-20); Blood Urea Nitrogen 16 mg/dL (9-16); Calcium 8.3 mg/dL (8.4-10.2); Carbon Dioxide 24 mmol/L (22-29); Chloride 108 mmol/L (96-108); Creatinine Clr Calc Pharmacy 68.3; Estimated Glomerular Filt Rate > 60; Glucose Random 138 mg/dL (60-115); Potassium 4.3 mmol/L (3.3-5.1); Sodium 138 mmol/L (135-145)
[2023-08-28] MEDS: Omeprazole 20 MG CAPSULE.DR PO (06:38)
[2023-08-28 07:03] LABS: SLIDE REVIEW VERIFIED
[2023-08-28] MEDS: Loratadine 10 MG TABLET PO (09:03)
[2023-08-28] MEDS: methylPREDNISolone Sod Succ 40 MG/ML VIAL IVPUSH ×2 (09:03→20:32)
[2023-08-28] MEDS: Roflumilast 500 MCG TABLET PO (09:03)
[2023-08-28] MEDS: methADONE HCl 10 MG TABLET PO ×2 (09:03→20:33)
[2023-08-28] MEDS: 0.9 % Sodium Chloride Flush 3 ML SYRINGE IVFLUSH ×2 (09:04→20:33)
--- NOTE | 2023-08-28 10:45 | HO.PM.IMPN ---
Subjective Subjective Date of Service: 08/28/23 Interval History: sob, cough Physical Exam Vital Signs: Vital Signs: Last Vital Signs Temp 97.2 F 08/28/23 07:10 Pulse 88 08/28/23 07:10 Resp 18 08/28/23 07:10 BP 95/53 L 08/28/23 07:10 Pulse Ox 97 08/28/23 07:10 O2 Del Method Nasal Cannula 08/28/23 07:10 O2 Flow Rate 2 08/28/23 07:10 BMI result Body Mass Index 20.9 General: AO X 3, no acute distress Resp: diminshed bilateral, no accessory muscles used CVS: S1,S2,RRR GI: soft, non tender, non distended Neuro: motor grossly intact, alert Psych: appropriate affect, appropriate insight Objective Data Active Medications Acetaminophen (Acetaminophen 325 Mg Tablet) 650 mg PO Q6H PRN PRN Reason: Pain, Mild (Pain Scale 1-3) Last Admin: 08/28/23 00:26 Dose: 650 mg Documented By: BORIS Albuterol/Ipratropium (Albuterol/Iprat 2.5/0.5mg 3 Ml Ampul.Neb) 3 ml INHALE Q4H PRN PRN Reason: Wheezing Last Admin: 08/28/23 03:46 Dose: 3 ml Documented By: BHAVNA Budesonide (Budesonide 0.5 Mg/2 Ml Ampul.Neb) 0.5 mg INHALE ID [facility] Last Admin: 08/28/23 08:25 Dose: Not Given Documented By: DAVON Non-Admin Reason: Patient Asleep Cyclobenzaprine HCl (Cyclobenzaprine Hcl 10 Mg Tablet) 10 mg PO BID PRN PRN Reason: Muscle Spasm Last Admin: 08/27/23 21:28 Dose: 10 mg Documented By: BORIS Docusate Sodium (Docusate Sodium 100 Mg Capsule) 200 mg PO BID PRN PRN Reason: constipation Last Admin: 08/27/23 21:28 Dose: 200 mg Documented By: BORIS Enoxaparin Sodium (Enoxaparin Sodium 40 Mg/0.4 Ml Syringe) 40 mg SUBCUT Q24H [facility] Last Admin: 08/27/23 21:33 Dose: Not Given Documented By: BORIS Non-Admin Reason: given in ed Guaifenesin/Codeine Phosphate (Guaifen/Codeine Sf 200/20/10ml 10 Ml Liquid) 10 ml PO Q6H PRN PRN Reason: cough Last Admin: 08/28/23 03:43 Dose: 10 ml Documented By: BORIS Ceftriaxone Sodium 1 gm/ (Sodium Chloride) 50 mls @ 100 mls/hr IV Q24H [facility] Last Infusion: 08/27/23 21:53 Dose: Infused Documented By: BORIS Azithromycin 500 mg/ Sodium (Chloride) 250 mls @ 125 mls/hr IV Q24H [facility] Last Infusion: 08/27/23 22:13 Dose: Infused Documented By: BORIS Loratadine (Loratadine 10 Mg Tablet) 10 mg PO DAILY [facility] Last Admin: 08/28/23 09:03 Dose: 10 mg Documented By: SYLVIA Lorazepam (Lorazepam 1 Mg Tablet) 1 mg PO TID PRN PRN Reason: anxiety Last Admin: 08/27/23 21:28 Dose: 1 mg Documented By: BORIS Melatonin (Melatonin 3 Mg Tablet) 6 mg PO BEDTIME PRN PRN Reason: Insomnia Last Admin: 08/28/23 00:27 Dose: 6 mg Documented By: BORIS Methadone HCl (Methadone Hcl 10 Mg Tablet) 10 mg PO BID [facility] Last Admin: 08/28/23 09:03 Dose: 10 mg Documented By: SYLVIA Methylprednisolone Sodium Succinate (Methylprednisolone Sod Succ 40 Mg/Ml Vial) 40 mg IVPUSH Q12H [facility] Last Admin: 08/28/23 09:03 Dose: 40 mg Documented By: SYLVIA Pt Own (Arformoterol 15 Mcg/2 Ml Solution For Nebulization) 2 ml INHALE RBID [facility] Last Admin: 08/28/23 08:24 Dose: Not Given Documented By: DAVON Non-Admin Reason: Patient Asleep Pt Own (Revefenacin [Yupelri] 175 Mcg/3 Ml Solution For Nebulization) 175 mcg INHALE RBID [facility] Last Admin: 08/28/23 08:25 Dose: Not Given Documented By: DAVON Non-Admin Reason: Patient Asleep Nystatin (Nystatin Oral Susp 500,000 Unit/5 Ml Oral.Susp) 500,000 unit PO QID PRN; Protocol PRN Reason: thrush Omeprazole (Omeprazole 20 Mg Capsule.) 20 mg PO DAILY@0630 [facility] Last Admin: 08/28/23 06:38 Dose: 20 mg Documented By: BORIS Ondansetron HCl (Ondansetron Hcl 4 Mg/2 Ml Vial) 4 mg IVPUSH Q8H PRN PRN Reason: Nausea and Vomiting Roflumilast (Roflumilast 500 Mcg Tablet) 500 mcg PO DAILY [facility] Last Admin: 08/28/23 09:03 Dose: 500 mcg Documented By: SYLVIA Sodium Chloride (0.9 % Sodium Chloride Flush 3 Ml Syringe) 3 ml IVFLUSH QSHIFT [facility] Last Admin: 08/28/23 09:04 Dose: 3 ml Documented By: SYLVIA Labs 08/28/23 05:14 08/28/23 05:14 Labs: Laboratory Results - last 24 hr 08/27/23 08/27/23 08/27/23 16:43 17:03 18:10 MCV 90.2 MCH 29.5 MCHC 32.7 RDW 13.7 Plt Count 290 MPV 9.3 L Immature Gran % (Auto) 0.4 Neut % (Auto) 83.6 H Lymph % (Auto) 7.2 L [place] % (Auto) 6.7 Eos % (Auto) 1.8 Baso % (Auto) 0.3 Lymph # (Auto) 1.3 [place] # (Auto) 1.2 Eos # (Auto) 0.3 Baso # (Auto) 0.1 Abs Immat Gran (auto) 0.08 H Absolute Neuts (auto) 15.0 H Absolute Nucleated RBC 0.000 Nucleated RBC % (auto) 0.0 Smear Tech's Comments PT 12.3 INR 1.0 APTT 32.9 Anion Gap 64 H 12 Estim Creat Clear Calc 74.3 67.4 Estimated GFR > 60 > 60 Random Glucose 72 115 Lactic Acid 2.3 H* Lactic Acid F/U @ 2Hr Calcium 7.5 L D 8.9 D Total Bilirubin 0.3 0.5 Direct Bilirubin 0.2 AST 15 15 ALT 11 12 Alkaline Phosphatase 52 59 B-Natriuretic Peptide 86 Total Protein 6.2 L 6.8 Albumin 3.1 L 3.4 L Lipase 13 Urine Color Urine Appearance Urine pH Ur Specific [place] Urine Protein Urine Glucose (UA) Urine Ketones Urine Blood Urine Nitrite Ur Leukocyte Esterase Urine RBC Urine WBC Ur Squamous Epith Cells Urine Bacteria Hyaline Casts Salicylates < 5.0 L Urine Opiates Screen Urine Fentanyl Screen Acetaminophen < 3 Ur Barbiturates Screen Ur Phencyclidine Scrn Ur Amphetamines Screen U Benzodiazepines Scrn Urine Cocaine Screen U Marijuana (THC) Screen Influenza Type A (PCR) NEGATIVE Influenza Type B (PCR) NEGATIVE RSV RNA Qual (PCR) NEGATIVE SARS-CoV-2 RNA (RT-PCR) NEGATIVE S. pyogenes GrpA KAVON Negative 08/27/23 08/27/23 08/28/23 18:47 19:39 05:14 MCV 91.2 MCH 30.1 MCHC 33.1 RDW 13.7 Plt Count 291 MPV 10.0 Immature Gran % (Auto) 0.4 Neut % (Auto) 93.1 H Lymph % (Auto) 4.8 L [place] % (Auto) 1.6 L Eos % (Auto) 0.0 Baso % (Auto) 0.1 Lymph # (Auto) 0.5 L [place] # (Auto) 0.2 Eos # (Auto) 0.0 Baso # (Auto) 0.0 Abs Immat Gran (auto) 0.05 H Absolute Neuts (auto) 10.5 H Absolute Nucleated RBC 0.000 Nucleated RBC % (auto) 0.0 Smear Tech's Comments VERIFIED PT INR APTT Anion Gap 10 L Estim Creat Clear Calc 68.3 Estimated GFR > 60 Random Glucose 138 H Lactic Acid Lactic Acid F/U @ 2Hr 0.9 Calcium 8.3 L D Total Bilirubin Direct Bilirubin AST ALT Alkaline Phosphatase B-Natriuretic Peptide Total Protein Albumin Lipase Urine Color Yellow Urine Appearance Clear Urine pH 5.5 Ur Specific [place] 1.025 Urine Protein 30 (1+) H Urine Glucose (UA) Negative Urine Ketones Negative Urine Blood Negative Urine Nitrite Negative Ur Leukocyte Esterase Negative Urine RBC 0-2 Urine WBC 0-5 Ur Squamous Epith Cells 0-2 Urine Bacteria None Seen Hyaline Casts 0-2 Salicylates Urine Opiates Screen POSITIVE H Urine Fentanyl Screen Not Detected Acetaminophen Ur Barbiturates Screen Not Detected Ur Phencyclidine Scrn Not Detected Ur Amphetamines Screen Not Detected U Benzodiazepines Scrn Not Detected Urine Cocaine Screen Not Detected U Marijuana (THC) Screen POSITIVE H Influenza Type A (PCR) Influenza Type B (PCR) RSV RNA Qual (PCR) SARS-CoV-2 RNA (RT-PCR) S. pyogenes GrpA KAVON Microbiology Microbiology Results: Microbiology 08/27/23 19:40 Gram Stain - Final Sputum - Expectorated Sputum Culture - Preliminary Culture in progress. Assessment and Plan (1) Pneumonia: Status: Acute Plan 63M PMH cardiomyopathy, immunodeficiency on monthly IVIG, chronic hypoxic respiratory failure due to COPD on 2 L home O2, hypertension, mood disorder, opiate dependence on methadone, history of ischemic bowel status post ileocolic resection presented with shortness of breath Sepsis and acute on chronic hypoxic respiratory failure due to COPD with acute decompensation and possible superimposed pneumonia IV ceftriaxone azithromycin, IV steroids, bronchodilators Wean O2 as tolerated Opiate dependence Continue methadone Cardiomyopathy Holding neural hormonal due to hypotension DVT prophylaxis with Lovenox Full code reason for continued hospitalization: Continues to be short of breath Quality Stroke Does the patient have a stroke diagnosis?: No VTE Prior VTE?: No VTE Risk Level:: Medical - moderate - high VTE Device Contraindication: Treatment Not Indicated VTE Drug Contraindication: N/A - Med Ordered
--- NOTE | 2023-08-28 13:35 | MHC.CLN ---
NUTRITION CONSULT FOR RECENT WEIGHT LOSS. REVIEW OF WEIGHT HX SHOWS WEIGHT ESSENTIALLY STABLE X 6 MONTHS. WEIGHT LOSS X ONE YEAR -16%. BMI=20.9, NORMAL, AND PATIENT IS 95% IBW. NO ADDITIONAL NUTRITION INTERVENTIONS AT THIS TIME.
--- NOTE | 2023-08-28 15:02 | MHC.CM.PN ---
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
[2023-08-28] MEDS: Cyclobenzaprine HCl 10 MG TABLET PO (15:12)
--- NOTE | 2023-08-28 17:49 | PC.NURSE ---
Pt rang call nuñez and this nurse answered, Pt is asking if this nurse can check his vitals, he states he is feeling anxious or hyper, denies SOB, chest pain, headache, dizziness, is speaking in complete sentences, respirations normals, Vitals were taken and documented all within pt's baseline and normal limits. Pt states that he thinks he is anxious due to the book he is reading, This nurse offered a PRN ativan and Pt declined at this time, advised Pt to ring call nuñez if worsening anxiety or onset of any new symptoms, Pt agreed and is sitting in chair with dinner in front of him.
[2023-08-28] MEDS: LORazepam 1 MG TABLET PO (18:21)
[2023-08-28] MEDS: Budesonide 0.5 MG/2 ML AMPUL.NEB INHALE (19:45)
[2023-08-28] MEDS: Azithromycin 500 MG in 0.9 % Sodium Chloride 250 ML 125 MG IV (20:34)
[2023-08-28] MEDS: cefTRIAXone sodium 1 GM in 0.9 % Sodium Chloride 50 ML IV (23:06)
[2023-08-29 03:11] VITALS: BP 133/77; PULSE 91; RESP 18; TEMP 36.7; O2SAT 95
[2023-08-29] MEDS: guaiFEN/Codeine SF 200/20/10ML 10 ML LIQUID PO (03:25)
[2023-08-29] MEDS: Omeprazole 20 MG CAPSULE.DR PO (05:40)
[2023-08-29] MEDS: LORazepam 1 MG TABLET PO (05:43)
[2023-08-29 06:34] LABS: Hematocrit 39.7 % (42.0-52.0); Mean Corpuscular HGB Conc 32.7 g/dl (31.0-36.0); Mean Corpuscular Hemoglobin 29.6 pg (27.0-33.0); Mean Corpuscular Volume 90.4 fL (80.0-98.0); Mean Platelet Volume 9.3 fL (9.4-12.4); Platelet Count 344 X10*3/uL (160-400); Red Blood Count 4.39 X10*6/uL (4.60-5.80); Red Cell Distribution Width 13.7 % (11.0-16.0); White Blood Count 12.1 X10*3/uL (4.8-10.8)
[2023-08-29 06:52] LABS: Anion Gap 13 (12-20); Blood Urea Nitrogen 11 mg/dL (9-16); Carbon Dioxide 26 mmol/L (22-29); Chloride 107 mmol/L (96-108); Creatinine Clr Calc Pharmacy 78.4; Estimated Glomerular Filt Rate > 60; Glucose Fasting 86 mg/dL (60-99); Potassium 4.7 mmol/L (3.3-5.1); Sodium 141 mmol/L (135-145)
[2023-08-29 07:44] VITALS: BP 123/66; PULSE 72; RESP 15; TEMP 36.7; O2SAT 95
--- NOTE | 2023-08-29 09:34 | PM.DS ---
DS: Providers Provider Date of Service: 08/29/23 Date of admission: 08/27/23 19:07 Primary care physician: Declan Muller MD DS: Diagnosis Discharge Diagnosis (1) Pneumonia: Status: Acute DS: Summary Hospital Course Hospital Course: from initial hpi: 63M PMH cardiomyopathy, immunodeficiency on monthly IVIG, chronic hypoxic respiratory failure due to COPD on 2 L home O2, hypertension, mood disorder, opiate dependence on methadone, history of ischemic bowel status post ileocolic resection who presents to the emergency department for evaluation of dyspnea. Patient states he has been having dyspnea worse with progression that has been ongoing for the last 2-3 weeks. Dyspnea persists despite home inhaler and home oxygen supplementation. Also has been having wheezing and cough with yellowish sputum production. No fever or chills. No chest discomfort, palpitations, abdominal pain, changes in urinary or bowel habits. In the emergency department, patient was found to be septic and imaging concerning for pneumonia. hospital course: Patient was admitted for sepsis and acute on chronic hypoxic respiratory failure secondary to COPD with acute decompensation and possible superimposed pneumonia. He was treated with IV ceftriaxone and azithromycin, IV steroids, bronchodilators. His oxygen was weaned to baseline and his symptoms significantly improved. He will be discharged home on 5 more days of cefuroxime and prednisone. For opiate dependence he was continued on methadone. For history of cardiomyopathy his neural hormonal medications were held due to hypotension, should be resumed as tolerated. For history of immunodeficiency will continue with IVIG monthly. Time Attestation Discharge coordination time: Greater than 30 minutes Quality: Safe Use of Opioids Does Pt have an Active Cancer Diagnosis on the Problem List?: No Quality: Stroke Does the patient have a stroke diagnosis?: No Physical Exam Vital Signs: Vital Signs: Last Vital Signs Temp 98.1 F 08/29/23 07:44 Pulse 72 08/29/23 07:44 Resp 15 08/29/23 07:44 BP 123/66 08/29/23 07:44 Pulse Ox 95 08/29/23 07:44 O2 Del Method Room Air 08/29/23 07:44 O2 Flow Rate 2 08/28/23 07:10 BMI result Body Mass Index 20.9 General: AO X 3, no acute distress Resp: CTA bilateral, no accessory muscles used CVS: S1,S2,RRR GI: soft, non tender, non distended Neuro: motor grossly intact, alert Psych: appropriate affect, appropriate insight DS: Data Data Completed and Pending Labs on day of discharge: Laboratory Results - last 24 hr 08/29/23 05:58 WBC 12.1 H RBC 4.39 L Hgb 13.0 L Hct 39.7 L MCV 90.4 MCH 29.6 MCHC 32.7 RDW 13.7 Plt Count 344 MPV 9.3 L Absolute Nucleated RBC 0.000 Nucleated RBC % (auto) 0.0 Sodium 141 Potassium 4.7 Chloride 107 Carbon Dioxide 26 Anion Gap 13 BUN 11 Creatinine 0.74 Estim Creat Clear Calc 78.4 Estimated GFR > 60 Fasting Glucose 86 Calcium 9.0 D Preliminary micro results at discharge 08/27/23 16:43 Blood Culture - Preliminary Blood - Venous No growth after 24 hours. 08/27/23 16:43 Blood Culture - Preliminary Blood - Venous No growth after 24 hours. 08/27/23 19:40 Sputum Culture - Preliminary Sputum - Expectorated Culture in progress. Discharge Plan Discharge Anticipated Discharge Date/Time: 08/29/23 09:32 Patient Disposition: Home, Self-Care Discharge Diagnosis: pna Referrals: Declan Muller MD [Primary Care Provider] - 1 Week Discharge Medications: New cefuroxime axetil 500 mg tablet 500 mg PO BID Qty: 10 0RF prednisone 20 mg tablet 40 mg PO DAILY Qty: 10 0RF Continued Daliresp 500 mcg tablet 500 mcg PO DAILY Qty: 90 3RF albuterol sulfate 2.5 mg /3 mL (0.083 %) solution for nebulization 2.5 mg inhalation Q4H PRN (Reason: for wheezing) Qty: 150 0RF arformoterol 15 mcg/2 mL solution for nebulization 2 ml inhalation BID Qty: 120 3RF budesonide 0.5 mg/2 mL suspension for nebulization 0.5 mg inhalation BID 30 Days Qty: 120 11RF albuterol sulfate 90 mcg/actuation HFA aerosol inhaler 2 puff inhalation Q4H PRN (Reason: for wheezing) Qty: 1 11RF lisinopril 20 mg tablet 20 mg PO DAILY metoprolol succinate 100 mg tablet extended release 24 hr 100 mg PO DAILY pantoprazole 40 mg tablet,delayed release (DR/EC) 40 mg PO DAILY imm glob G (IgG)-sorb-IgA 0-50 10 % Solution IV Q28D Yupelri 175 mcg/3 mL solution for nebulization 175 mcg inhalation BID cyclobenzaprine 10 mg tablet 10 mg PO BID PRN (Reason: Muscle Spasm) lorazepam 1 mg tablet 1 mg PO TID PRN (Reason: anxiety) docusate sodium 100 mg capsule 200 mg PO BID PRN (Reason: constipation) Prolia 60 mg/mL syringe subcut nystatin 100,000 unit/mL suspension 5 ml PO QID PRN (Reason: thrush) methadone 10 mg tablet 10 mg PO BID cetirizine 10 mg tablet 10 mg PO DAILY (DME) nebulizers Misc See Rx Instructions .Route Rx Instructions: As directed ondansetron 4 mg tablet,disintegrating 4 mg PO Q6H PRN (Reason: nausea/vomiting) codeine-guaifenesin 10-100 mg/5 mL liquid 10 ml PO Q6H PRN (Reason: cough) 10 Days Qty: 300 0RF testosterone 1.62 % (20.25 mg/1.25 gram) gel in packet 1 packet transdermal DAILY Discharge Orders: Discharge Order (Routine); Ordered 08/29/23 Ordered By: Jameson Prakash Diet: Advance to usual diet Activity on Discharge: As tolerated Stand Alone Forms: Patient Portal Discharge page Care Plan Goals: recovery Health Concerns: pna Plan of Treatment: 5 more days ceftin and prednisone Assessment: see above
[2023-08-29] MEDS: Roflumilast 500 MCG TABLET PO (09:43)
[2023-08-29] MEDS: Loratadine 10 MG TABLET PO (09:43)
[2023-08-29] MEDS: methADONE HCl 10 MG TABLET PO (09:43)
[2023-08-29] MEDS: 0.9 % Sodium Chloride Flush 3 ML SYRINGE IVFLUSH (09:44)
[2023-08-29] MEDS: methylPREDNISolone Sod Succ 40 MG/ML VIAL IVPUSH (09:44)
--- NOTE | 2023-08-29 09:53 | MHC.CM.PN ---
PT WILL DC HOME TODAY WITH RESUMPTION OF [employer] [facility] TO TRANSPORT
== END 2023-08-29 12:03 | disposition home or self-care (01) | DRG 871 ==
LOC: HO.ED 19:00 → HO.EDOVER 19:12 → HO.S3 19:41
PROVIDERS: Physician Assistant; Admitting Provider Student in an Organized Health Care Education/Training Program; Emergency Provider Emergency Medicine; PCP Internal Medicine; Visit Provider Internal Medicine
DX: A41.9 Sepsis, unspecified organism (principal); J18.9 Pneumonia, unspecified organism; J96.21 Acute and chronic respiratory failure with hypoxia; F11.20 Opioid dependence, uncomplicated; J44.0 Chronic obstructive pulmonary disease with (acute) lower respiratory infection; E87.21 Acute metabolic acidosis; E87.0 Hyperosmolality and hypernatremia; D84.821 Immunodeficiency due to drugs; I42.9 Cardiomyopathy, unspecified; J44.1 Chronic obstructive pulmonary disease with (acute) exacerbation; Z99.81 Dependence on supplemental oxygen; F19.90 Other psychoactive substance use, unspecified, uncomplicated; F39 Unspecified mood [affective] disorder; K21.9 Gastro-esophageal reflux disease without esophagitis; Z20.822 Contact with and (suspected) exposure to COVID-19; Z79.620 Long term (current) use of immunosuppressive biologic; Z87.891 Personal history of nicotine dependence; Z79.899 Other long term (current) drug therapy
CPT/HCPCS: 0241U; 36415; 71045; 80048; 80053; 80076; 80143; 80179; 80307; 81001; 83605; 83690; 83880; 84484; 85025; 85027; 85610; 85730; 87040; 87070; 87077; 87205; 87651; 93005; 94640; 99285; J0456; J0696; J2543; J2920

== ENCOUNTER → 2023-08-27 19:07 | Outpatient (BNV) | payer MEDICARE, MEDICAID, SELFPAY | PROVIDERS: Admitting Provider Student in an Organized Health Care Education/Training Program; Emergency Provider Emergency Medicine; Visit Provider Student in an Organized Health Care Education/Training Program | DX: J18.9 Pneumonia, unspecified organism (principal) | CPT/HCPCS: 99222; 99232; 99239 ==

== ENCOUNTER 2023-09-09 06:22 | Emergency (ER) | payer MEDICARE, MEDICAID, SELFPAY ==
--- NOTE | 2023-09-09 | ECG_ITS ---
Test Reason : SOB Blood Pressure : / mmHG Vent. Rate : 135 BPM Atrial Rate : 135 BPM P-R Int : 114 ms QRS Dur : 122 ms QT Int : 316 ms P-R-T Axes : 077 -27 101 degrees QTc Int : 474 ms Sinus tachycardia Left axis deviation Non-specific intra-ventricular conduction delay ST & T wave abnormality, consider lateral ischemia Abnormal ECG When compared with ECG of 27-AUG-2023 15:22, Left anterior fascicular block is no longer Present ST now depressed in Lateral leads Heart rate has increased Referred By: Generic ED Physician Electronically Signed By:BRENDEN KENT MD
--- NOTE | ~2023-09-09 | XR_ITS ---
EXAMINATION: XR CHEST CLINICAL INFORMATION: Shortness breath. Pneumonia. COMPARISON: August 27, 2023. TECHNIQUE: Portable AP view of the chest was obtained. XR/XR chest 1V FINDINGS/IMPRESSION: There is no gross acute radiographic finding. Examination again suggests emphysema. Mild chronic bilateral interstitial prominence. Left basilar fibrotic streak. Right costophrenic angle surgical arielle and pleural tenting. Heart appears normal in size. Mildly uncoiled aorta, suggesting hypertension. Multiple old, bilateral rib fracture deformities. Mild degenerative changes of the spine.
[2023-09-09 06:24] VITALS: BP 133/89; BP 150/81; PULSE 130; PULSE 142; RESP 25; TEMP 37.4; O2SAT 91; BMI 21.4
--- NOTE | 2023-09-09 06:49 | PC.NURSE ---
this RN attempted iv access but unsuccessful - pt tough stick and hesistant to let this RN try more than once pt says you need to call the IV team extension service specialist in charge aware. unable to collect labs at this time . pt speaking clear full sentences no respiratory distress currently
[2023-09-09 07:27] VITALS: PULSE 135; RESP 18; TEMP 37.3; O2SAT 93
--- NOTE | 2023-09-09 07:35 | ED.SOB ---
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 Bob biology tutor recently was seen and evaluated by him patient was started on a course of doxycycline, patient is presented today with persistent cough, subjective tactile fever. Patient with known acute CHF with ejection fraction of 15%. Patient use supplemental oxygen 2 L only if needed for shortness of breath. Related Data Home Medications Medication Instructions Recorded Confirmed cyclobenzaprine 10 mg tablet 10 mg PO BID PRN Muscle Spasm 11/07/20 08/27/23 denosumab 60 mg/mL subcutaneous mg subcut 06/12/21 08/07/23 syringe (Prolia) docusate sodium 100 mg capsule 200 mg PO BID PRN constipation 06/12/21 08/27/23 lorazepam 1 mg tablet 1 mg PO TID PRN anxiety 06/12/21 08/27/23 methadone 10 mg tablet 10 mg PO BID 12/03/21 08/27/23 cetirizine 10 mg tablet 10 mg PO DAILY Allergy Symptoms 10/31/22 08/27/23 nebulizers 01/08/23 07/20/23 ondansetron 4 mg disintegrating 4 mg PO Q6H PRN nausea/vomiting 01/08/23 08/27/23 tablet testosterone 1.62 % (20.25 mg/1.25 1 packet transdermal DAILY 07/22/23 08/27/23 gram) transdermal gel packet nystatin 100,000 unit/mL oral 5 ml PO QID PRN thrush 07/23/23 08/27/23 suspension immune glob,gamm(IgG) 10%-sorb-IgA ml IV Q28D 08/27/23 0 to 50 mcg/mL intravenous solution lisinopril 20 mg tablet 20 mg PO DAILY 08/27/23 08/27/23 metoprolol succinate 100 mg 100 mg PO DAILY 08/27/23 08/27/23 tablet,extended release 24 hr pantoprazole 40 mg tablet,delayed 40 mg PO DAILY pain 08/27/23 08/27/23 release Previous Rx's Medication Instructions Recorded roflumilast 500 mcg tablet 500 mcg PO DAILY #90 tabs 06/09/23 (Daliresp) codeine 10 mg-guaifenesin 100 mg/5 10 ml PO Q6H PRN cough 10 days 08/11/23 mL oral liquid #300 mL albuterol sulfate 2.5 mg/3 mL 2.5 mg (3 mL) inhalation Q4H PRN 08/13/23 (0.083 %) solution for nebulization for wheezing #150 mL albuterol sulfate 90 mcg/actuation 2 puff inhalation Q4H PRN for 08/13/23 aerosol inhaler wheezing #1 ea arformoterol 15 mcg/2 mL solution 2 ml inhalation BID #120 mL 08/13/23 for nebulization budesonide 0.5 mg/2 mL suspension 0.5 mg (2 mL) inhalation BID 30 08/13/23 for nebulization days #120 mL cefuroxime axetil 500 mg tablet 500 mg PO BID #10 tabs 08/29/23 prednisone 20 mg tablet 40 mg (2 x 20 mg) PO DAILY #10 tabs 08/29/23 revefenacin 175 mcg/3 mL solution 175 mcg (3 mL) inhalation DAILY 08/31/23 for nebulization (Yupelri) #270 mL doxycycline monohydrate 100 mg 100 mg PO BID 14 days #28 tabs 09/07/23 tablet Allergies Allergy/AdvReac Type Severity Reaction Status Date / Time ciprofloxacin [From Cipro] Allergy Severe Redness Verified 08/11/23 10:20 on Face levofloxacin [From Levaquin] Allergy Severe Swelling Verified 08/11/23 10:20 in the Joints hydromorphone [From Dilaudid] AdvReac Intermediate Anxiety Verified 08/11/23 10:20 Review of Systems Review of Systems: all other systems are reviewed and are negative Constitutional: Reports as per HPI and Reports no additional constitutional complaints Eyes: Reports as per HPI and Reports no additional eye complaints Reports system reviewed and no additional complaints, except as documented Cardiovascular: Reports as per HPI and Reports no additional cardiovascular complaints Respiratory: Reports as per HPI and Reports no additional respiratory complaints Gastrointestinal: Reports as per HPI and Reports no additional gastrointestinal complaints Genitourinary: Reports no additional female genitourinary complaints Musculoskeletal: Reports no additional musculoskeletal complaints Skin/Breast: Reports system reviewed and no additional complaints, except as docu Psychiatric: Reports no additional psychiatric complaints Endocrine: Reports no additional endocrine complaints Hematologic/Lymphatic: Reports no additional hematologic/lymphatic complaints Allergic/Immunologic: Reports no additional allergic/immunologic complaints Reports system reviewed and no additional complaints, except as documented and Reports Abnormal speech present FORMERLY [facility] Past Medical History Medical History Chondrocalcinosis Chronic neck and back pain Asthma Asthma-COPD overlap syndrome Asthma FH: bowel obstruction Bronchitis Pulmonary nodules Back pain Dyspnea COPD (chronic obstructive pulmonary disease) Surgical History Hx of colonoscopy History of esophagogastroduodenoscopy (EGD) History of partial colectomy History of hernia repair History of lung biopsy Family History Family History Mother History of lung cancer Social History Household Members: Family Housing: House Do you presently have visiting nurse or other home services: Yes (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) Alcohol intake: former Patient Tobacco Use Status: Former Tobacco user Quit Date: 1992 Tobacco use type: Cigarette Years Smoked: 15 years Smoked in Last 30 Days: No Use of substances other than those prescribed or required for medical reasons: No Substance Use Type: Marijuana Advance Directives: No Advance Directives Information Provided: Yes service: No Current occupational status: disabled Physical Exam Vital Signs: Vital Signs: Last Vital Signs Temp 99.2 F 09/09/23 07:27 Pulse 137 H 09/09/23 08:22 Resp 16 09/09/23 08:22 BP 126/81 09/09/23 08:22 Pulse Ox 94 09/09/23 08:22 O2 Del Method Nasal Cannula 09/09/23 08:22 O2 Flow Rate 2 09/09/23 08:22 BMI result Body Mass Index 21.4 Vital signs have been reviewed and appear to be correct. Blood pressure elevated. Heart rate normal. Respiratory rate normal. Temperature normal. Oxygen saturation normal. Appearance: Alert. Oriented X3. No acute distress. Head: Normal external exam. Normocephalic. Atraumatic. No Dalal signs noted. No raccoon eyes noted Eyes: PERRLA. EOMI. Conjunctiva and sclera normal. Eyelids normal. ENT: TM's Normal. Pharynx normal. Uvula midline. Moist mucous membranes. No trismus noted. No drooling noted. No muffled voice noted. Neck: Normal inspection. Neck supple. FROM. No adenopathy. Thyroid Normal. No meningeal signs. No neck mass noted. CVS: Normal heart rate and rhythm. Heart sound normal. No murmurs noted. Pulses normal throughout. Respiratory: mild respiratory distress. Painless inspiration. Breath sounds normal. mild diffuse bilateral expiratory wheezing with prolonged expiration. Chest nontender. No accessory muscle usage noted or decreased air movement noted. Abdomen: Soft and nontender. Bowel sounds normal in all 4 quadrants. No distention noted. No organomegaly noted. No visible injury noted. Back: No CVA tenderness. Full range of motion noted. Skin: Skin warm and dry. Normal skin color. Normal skin turgor. No rashes/lesions/lacerations noted. Extremities: No lower extremity edema. Extremities exhibit normal range of motion. Extremities nontender. Neuro: Oriented X 3. Cranial nerve exam: II-XII are grossly intact No motor deficit. No sensory deficit. Reflexes normal. Course Reevaluation(s) Reevaluation #1: patient with leukocytosis, sign tachycardia likely secondary to albuterol, patient meet criteria for SARS and severe sepsis but no septic shock, the plan was to admit the patient for his abnormal vital signs and COPD exacerbation patient insisting to go home patient fully understands the risk of leaving against medical advise was instructed to continue with doxycycline and his biology tutor's therapy plan and follow up with him as an outpatient patient was instructed to seek immediate medical attention if getting worse. Time: 09:43 Medications Administered Generic Name Dose Route Start Last Admin Trade Name Freq PRN Reason Stop Dose Admin Sodium Chloride 1,000 mls @ 250 mls/hr 09/09/23 07:41 09/09/23 08:06 Ns IV 09/09/23 11:40 250 mls/hr .Q4H ONE Administration Discontinued Medications Generic Name Dose Route Start Last Admin Trade Name Freq PRN Reason Stop Dose Admin Acetaminophen 650 mg 09/09/23 09:22 09/09/23 09:29 Acetaminophen 325 Mg Tablet PO 09/09/23 09:23 650 mg ONCE ONE Administration Diltiazem HCl 20 mg 09/09/23 07:41 09/09/23 08:19 Diltiazem Hcl 50 Mg/10 Ml Vial IVPUSH 09/09/23 07:42 20 mg STAT STA Administration Morphine Sulfate 1 mg 09/09/23 07:57 09/09/23 08:05 Morphine Sulfate 2 Mg/Ml Cartridge IVPUSH 09/09/23 07:58 1 mg ONCE ONE Administration Protocol Medical Decision Making Differential Diagnosis Differential Diagnoses: The differential diagnosis associated with the presentation includes ( COPD exacerbation, pneumonia, pneumothorax, CHF, atrial fibrillation, electrolyte abnormality, sepsis, severe anemia.) Admission/Observation Consideration of admission/observation: Escalation of care including admission/observation considered Lab Data MDM Lab Attestation statement: I reviewed the patient's lab results. 09/09/23 07:51 09/09/23 07:51 Labs: Lab Results 09/09/23 09/09/23 Range/Units 07:19 07:51 WBC 24.1 H (4.8-10.8) X10*3/uL RBC 5.06 (4.60-5.80) X10*6/uL Hgb 15.0 (14.0-18.0) g/dl Hct 45.5 (42.0-52.0) % MCV 89.9 (80.0-98.0) fL MCH 29.6 (27.0-33.0) pg MCHC 33.0 (31.0-36.0) g/dl RDW 14.6 (11.0-16.0) % Plt Count 362 (160-400) X10*3/uL MPV 8.5 L (9.4-12.4) fL Immature Gran % (Auto) 0.7 H (0.0-0.4) % Neut % (Auto) 91.5 H (45-73) % Lymph % (Auto) 4.3 L (20-40) % [place] % (Auto) 3.0 (2-11) % Eos % (Auto) 0.3 (0-4) % Baso % (Auto) 0.2 (0-2) % Lymph # (Auto) 1.0 L (1.2-4.9) X10*3/uL [place] # (Auto) 0.7 (0.1-1.2) X10*3/uL Eos # (Auto) 0.1 (0.0-0.4) X10*3/uL Baso # (Auto) 0.1 (0.0-0.2) X10*3/uL Abs Immat Gran (auto) 0.16 H (0.00-0.03) X10*3/uL Absolute Neuts (auto) 22.1 H (2.0-8.3) x10*3/uL Absolute Nucleated RBC 0.000 (0.0-0.012) X10*3/uL Nucleated RBC % (auto) 0.0 (0.0-0.2) /100WBC Smear Tech's Comments VERIFIED Sodium 142 (135-145) mmol/L Potassium 4.0 (3.3-5.1) mmol/L Chloride 103 (96-108) mmol/L Carbon Dioxide 30 H (22-29) mmol/L Anion Gap 13 (12-20) BUN 16 (9-16) mg/dL Creatinine 0.94 (0.5-1.4) mg/dL Estim Creat Clear Calc 65.2 Estimated GFR > 60 Random Glucose 106 (60-115) mg/dL Lactic Acid 2.4 H* (0.5-2.0) mmol/L Calcium 9.7 D (8.4-10.2) mg/dL Total Bilirubin 0.3 (0.0-1.0) mg/dL AST 19 (5-37) U/L ALT 26 (0-40) U/L Alkaline Phosphatase 57 (39-117) U/L Troponin I High Sens 17.2 D (<3.5-35.0) ng/L Total Protein 7.9 (6.5-8.0) g/dL Albumin 3.7 (3.5-5.0) g/dL Urine Color Yellow Urine Appearance Clear Urine pH 5.0 (5.0-9.0) Ur Specific [place] 1.015 (1.005-1.025) Urine Protein Negative (Neg-Trace) mg/dL Urine Glucose (UA) Negative (Negative) mg/dL Urine Ketones Negative (Negative) mg/dL Urine Blood Negative (Negative) Urine Nitrite Negative (Negative) Ur Leukocyte Esterase Negative (Negative) Influenza Type A (PCR) NEGATIVE (Negative) Influenza Type B (PCR) NEGATIVE (Negative) RSV RNA Qual (PCR) NEGATIVE (Negative) SARS-CoV-2 RNA (RT-PCR) NEGATIVE (Negative) Independent Interpretation I performed an independent interpretation of an: Plain X-Ray (There is no gross acute radiographic finding. Examination again suggests emphysema. Mild chronic bilateral interstitial prominence. Left basilar fibrotic streak. Right costophrenic angle surgical arielle and pleural tenting. Heart appears normal in size. Mildly uncoiled aorta, suggesting hyperte) Radiology Impression Discussion of test interpretation with radiology: I have reviewed the radiologist's reading. Discharge Plan Discharge Clinical Impression: COPD (chronic obstructive pulmonary disease), Acute exacerbation of chronic obstructive airways disease, Tachycardia Patient Disposition: Left Against Medical Advice Instructions: COPD (Chronic Obstructive Pulmonary Disease) (ED) Additional Instructions: Follow-up with Dr. Paulino Ba your biology tutor and continue with your doxycycline. Come back to the ED if feeling worse. Prescriptions: No Action Daliresp 500 mcg tablet 500 mcg PO DAILY Qty: 90 3RF albuterol sulfate 2.5 mg /3 mL (0.083 %) solution for nebulization 2.5 mg inhalation Q4H PRN (Reason: for wheezing) Qty: 150 0RF arformoterol 15 mcg/2 mL solution for nebulization 2 ml inhalation BID Qty: 120 3RF budesonide 0.5 mg/2 mL suspension for nebulization 0.5 mg inhalation BID 30 Days Qty: 120 11RF albuterol sulfate 90 mcg/actuation HFA aerosol inhaler 2 puff inhalation Q4H PRN (Reason: for wheezing) Qty: 1 11RF Yupelri 175 mcg/3 mL solution for nebulization 175 mcg inhalation DAILY Qty: 270 3RF doxycycline monohydrate 100 mg tablet 100 mg PO BID 14 Days Qty: 28 0RF lisinopril 20 mg tablet 20 mg PO DAILY metoprolol succinate 100 mg tablet extended release 24 hr 100 mg PO DAILY pantoprazole 40 mg tablet,delayed release (DR/EC) 40 mg PO DAILY imm glob G (IgG)-sorb-IgA 0-50 10 % Solution IV Q28D cefuroxime axetil 500 mg tablet 500 mg PO BID Qty: 10 0RF prednisone 20 mg tablet 40 mg PO DAILY Qty: 10 0RF cyclobenzaprine 10 mg tablet 10 mg PO BID PRN (Reason: Muscle Spasm) lorazepam 1 mg tablet 1 mg PO TID PRN (Reason: anxiety) docusate sodium 100 mg capsule 200 mg PO BID PRN (Reason: constipation) Prolia 60 mg/mL syringe subcut nystatin 100,000 unit/mL suspension 5 ml PO QID PRN (Reason: thrush) methadone 10 mg tablet 10 mg PO BID cetirizine 10 mg tablet 10 mg PO DAILY (DME) nebulizers Misc See Rx Instructions .Route Rx Instructions: As directed ondansetron 4 mg tablet,disintegrating 4 mg PO Q6H PRN (Reason: nausea/vomiting) codeine-guaifenesin 10-100 mg/5 mL liquid 10 ml PO Q6H PRN (Reason: cough) 10 Days Qty: 300 0RF testosterone 1.62 % (20.25 mg/1.25 gram) gel in packet 1 packet transdermal DAILY
[2023-09-09 07:59] LABS: Appearance Urine Clear; Color Urine Yellow; Glucose Urine UA Negative (Negative); Leukocyte Esterase Urine Negative (Negative); Nitrite Urine Negative (Negative); Specific Gravity - Urine 1.015 (1.005-1.025); Urine Blood Negative (Negative); Urine Ketones Negative (Negative); Urine Protein Negative (Neg-Trace)
[2023-09-09 07:59] LABS: Basophils Absolute Auto 0.1 X10*3/uL (0.0-0.2); Basophils Percent Auto 0.2 % (0-2); Eosinophils Absolute Auto 0.1 X10*3/uL (0.0-0.4); Eosinophils Percent Auto 0.3 % (0-4); Hematocrit 45.5 % (42.0-52.0); Imm Gran Abs Auto 0.16 X10*3/uL (0.00-0.03); Imm Gran Pct Auto 0.7 % (0.0-0.4); Lymphocytes Percent Auto 4.3 % (20-40); MANUAL DIFF FLAG SCAN; Mean Corpuscular Hemoglobin 29.6 pg (27.0-33.0); Mean Corpuscular Volume 89.9 fL (80.0-98.0); Mean Platelet Volume 8.5 fL (9.4-12.4); Monocytes Absolute Auto 0.7 X10*3/uL (0.1-1.2); Neutrophils Absolute Auto 22.1 x10*3/uL (2.0-8.3); Neutrophils Percent Auto 91.5 % (45-73); Platelet Count 362 X10*3/uL (160-400); Red Blood Count 5.06 X10*6/uL (4.60-5.80); Red Cell Distribution Width 14.6 % (11.0-16.0); SCAN SMEAR FLAG 1; White Blood Count 24.1 X10*3/uL (4.8-10.8)
[2023-09-09] MEDS: Morphine Sulfate 2 MG/ML CARTRIDGE 1 MG IVPUSH (08:05)
[2023-09-09] MEDS: 0.9 % Sodium Chloride 1,000 ML 250 ML IV (08:06)
[2023-09-09 08:14] LABS: Alanine Aminotransferase 26 U/L (0-40); Albumin Level 3.7 g/dL (3.5-5.0); Alkaline Phosphatase 57 U/L (39-117); Anion Gap 13 (12-20); Aspartate Amino Transferase 19 U/L (5-37); Bilirubin Total 0.3 mg/dL (0.0-1.0); Blood Urea Nitrogen 16 mg/dL (9-16); Calcium 9.7 mg/dL (8.4-10.2); Carbon Dioxide 30 mmol/L (22-29); Chloride 103 mmol/L (96-108); Creatinine Clr Calc Pharmacy 65.2; Estimated Glomerular Filt Rate > 60; Glucose Random 106 mg/dL (60-115); Sodium 142 mmol/L (135-145); Total Protein 7.9 g/dL (6.5-8.0)
--- NOTE | 2023-09-09 08:18 | MHC.EDTECH ---
This pct attempted to draw labs on patient but was unsuccessful twice,RN Aware
[2023-09-09 08:19] LABS: Lactic Acid 2.4 mmol/L (0.5-2.0)
[2023-09-09] MEDS: dilTIAZem HCL 50 MG/10 ML VIAL 20 MG IVPUSH (08:19)
[2023-09-09 08:20] LABS: Troponin-I High Sensitivity 17.2 ng/L (<3.5-35.0)
[2023-09-09 08:22] VITALS: BP 126/81; PULSE 137; RESP 16; O2SAT 94
[2023-09-09 08:24] LABS: SLIDE REVIEW VERIFIED
--- NOTE | 2023-09-09 08:34 | PC.NURSE ---
pt a difficult poke, requiring U/S guidance IV placement. 20G IV placed to pts LAC by Camilo MORA. unable to collect second set of blood cultures at this time. attempting to reach phlebotomy at this time who reported it may be awhile . aware. MECHE jackson late d/t this
[2023-09-09 08:40] LABS: Influenza A PCR NEGATIVE (Negative); Influenza B PCR NEGATIVE (Negative); Resp Syncy Virus RNA Qual PCR NEGATIVE (Negative); SARS COV2 PCR INHOUSE NEGATIVE (Negative)
[2023-09-09] MEDS: Acetaminophen 325 MG TABLET 650 MG PO (09:29)
--- NOTE | 2023-09-09 09:41 | PC.NURSE ---
pt reports he wants to leave the hospital. this information writer informed the pt that he would be leaving AMA, pt reported yes thats what I want to do, I know its against medical advice . plan to inform MD Rizo.
--- NOTE | 2023-09-09 09:42 | PC.NURSE ---
Dr Rizo made aware that pt wants to leave the hospital because his IV hurts and his back hurts .
--- NOTE | 2023-09-09 09:42 | PC.NURSE ---
offered pain management to pt, he was requesting tylenol, medicated with tylenol zahraa DEC. offfered new placement of IV. pt refused, stating he just wants to go home . Dr Rizo in room to talk with pt
--- NOTE | 2023-09-09 09:45 | PC.NURSE ---
U/S guided IV line removed, informed pt of risks of leaving AMA including risk of and serious injury.
[2023-09-09 09:54] LABS: Reflex Lactate? Lactic Acid Added
== END 2023-09-09 09:54 | disposition left against medical advice (07) ==
PROVIDERS: Emergency Provider Emergency Medicine; PCP Internal Medicine
DX: J44.1 Chronic obstructive pulmonary disease with (acute) exacerbation (principal); R00.0 Tachycardia, unspecified; R06.02 Shortness of breath; R50.9 Fever, unspecified; R05.9 Cough, unspecified; Z79.899 Other long term (current) drug therapy; Z20.822 Contact with and (suspected) exposure to COVID-19; Z20.828 Contact with and (suspected) exposure to other viral communicable diseases
CPT/HCPCS: 0241U; 36415; 71045; 80053; 81003; 83605; 84484; 85025; 87040; 93005; 96374; 96375; 99285; J2270

== ENCOUNTER 2023-11-13 10:16 | Outpatient (AMB) | payer MEDICARE, MEDICAID, SELFPAY ==
[2023-11-13 10:24] VITALS: BP 120/60; PULSE 63; O2SAT 96; BMI 20.8
--- NOTE | 2023-11-13 10:24 | MHC.OFFVIS ---
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 Patient states that he had been sick with his respiratory issues for the last 10 years. He was initially diagnosed with pneumonia. He has had bronchoscopies and also apparently a biopsy in the past. I cannot find the results at [facility]. He has also gone to [place] for further evaluation. He has been on oxygen for his respiratory failure. Currently using inogen. He has had multiple hospitalizations usually add [facility]. He also goes to [facility]. He has had multiple CT scans done for his pulmonary nodules. His last CT scan was done at [facility]. He has been on nebulized therapy as the inhalers have not been effective for him. He recently finished a prednisone taper. He states that his breathing has been a little bit more labored. Moderate severity. The weather has not helped either. He states that he quit smoking many years ago. 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 We did review a CT scan of the chest from 2016 from [facility] demonstrating areas of attenuation, ground-glass opacities along with moderate emphysema. He was asking about the xypher valves and see if he was a candidate for them. 11/21/2022 the patient has a telehealth visit today. He has been sick now for about 3 days. Worsening cough chest congestion wheezing. His COVID testing has been negative. Denies any fevers or chills. He continues with Respiratory Medicine. Has been using his nebulizer 2 to 3 times a day. He is considering going up on the prednisone. He does have a productive cough although difficult to expectorate. The phlegm appears to be thicker and yellow in color. 11/26/2022 the patient is here for sick visit. He has been sick now for about 3-4 days. He started developing chest tightness and chest congestion. He has been having worsening time with his breathing. He became so significant that he is call the ambulance twice to his house. However, he has not actually gone to the ER. He has been using his oxygen. The patient also has been taking azithromycin antibiotics and also started a prednisone course. The patient is not significantly better. In the office he has significant diminished at his breath sounds although no crackles that I could appreciate we did treat him with 2 DuoNeb treatments and did provide him with Solu-Medrol 125 mg IM in the office. Will go ahead and change his antibiotics and increase his prednisone. If the patient is no better he is to call the office for further evaluation. Will go ahead and check blood work including a venous gas to make sure that he is not retaining CO2. 12/23/2022 The patient is here for a hospital follow up visit. He was admitted to [facility] with acute on chronic hypoxic and hypercarbic respiratory failure. He was noted to have CM with acute CHF, EF 15%. Cardiac meds adjusted. PLaced on diuresis. Required BIPAP, although has a hard time tolerating the BIPAP. We did talk about the improtance of non invasive ventilator if he has any evicence of hypercarbia. He was taken off the prednisone and he has been doing ok and he was also taken off the theophylline. HE was placed on digoxin and Entresto, but did not tolerate the entrsto and was changed to an PATRICIA inhibitor which he is tolerating better. He was also treated got a GI infection. We are requesting the discharge summary at this time. 01/08/2023 the patient is here for pulmonary follow-up visit. He continues to have increased work of breathing. He has a maximal respiratory therapy. Had to come off the theophylline because of his other comorbidities. Is based on the very severe COPD and chronic respiratory failure along with his recent admission with hypercarbic respiratory failure to the hospital will start the patient on noninvasive ventilator. The noninvasive ventilator will help him with improving his gas exchange, improved his prognosis and decrease hospitalizations. 03/17/2023 the patient is here for pulmonary follow-up visit. The patient is feeling a lot better. He is working closely with his cardiac status. He is improving and therefore his respiratory status is improving as well. He feels a lot stronger. He is going to have a repeat echocardiogram and may indeed need a defibrillator if his EF continues to be low. In the meantime the patient did get a noninvasive ventilator. Unfortunately tried multiple masks and cannot sleep with it he tried using it during the daytime he did not tolerated. At this point the patient does not want her continue using it. I did recommend he call the [employer] company in order for them to pick it up since he is not using it. We will reassess in the future depending on his CO2 if it starts going up at that time if that is the case we will look into restarting noninvasive therapy. Regards pulmonary nodules he is due for CT scan in July. In addition to all this he is trying to wean off the opiates specially because he has had multiple complications because of the opiates including constipation. Will go ahead and refer him to the Pain Clinic in order for him to look for alternative therapies in view of his severe chronic back and neck pain. This will help his respiratory status as well. 08/11/2023 the patient is here for pulmonary follow-up visit. He was recently seen for a COPD exacerbation. He was evaluated back the end of July he was placed on Vantin and also prednisone he did not take prednisone. The is still coughing although the cough is better less productive is still not gain. Moderate severity. The patient did have a chest x-ray without any acute disease at that time. He continues with respiratory therapy. His cardiac status is stable. He has a hard time expectorating. He does have a flutter valve. I did encourage him for him to use it. The patient will go ahead and start Bactrim. If he still having a productive cough I did provide him with sputum cup in order for him to provide. 11/13/2023 the patient is here for a pulmonary follow-up visit. He is finally feeling better. Overall in a much better health state. He has been continue to use his cardioprotective medications and seems to be feeling better from the standpoint. He did recently have an echocardiogram he does not know the results. I am hopeful that his EF has gotten better. In addition to that he has no longer taking prednisone or antibiotics. He is regimen is back to his baseline. His breathing is well. He is using his oxygen with good effect. He continues his IVIG infusions every 4 weeks. The patient does have severe COPD based on his PFTs that he had back in July 2022. Now he has in a good place to start pulmonary rehabilitation. Therefore since it is close to [facility] will send a referral there. He can start rehab and close monitoring specially with underlying cardiac and pulmonary disease. After that he probably can do it on his own. 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) Alcohol intake: former Patient Tobacco Use Status: Former Tobacco user Quit Date: 1992 Tobacco use type: Cigarette Years Smoked: 15 years Substance Use Type: Marijuana service: No Current occupational status: disabled Review of Systems Const Reports difficulty sleeping, Denies fatigue, Denies fever(s), Denies headache(s), Denies night sweats, Denies poor appetite and Reports weight gain ENT Reports Normal hearing present, Denies change in voice, Denies headache(s), Denies lip swelling, Denies mouth pain, Reports nasal congestion, Reports nasal discharge, Reports neck pain and Denies tongue swelling Card Denies chest pain, Denies dyspnea and Reports dyspnea on exertion Resp Denies change in phlegm color, Reports chest congestion, Reports cough, Denies hemoptysis, Denies excessive phlegm production, Denies pain on inspiration, Denies dyspnea, Reports dyspnea on exertion and Reports wheezing GI Denies abdominal pain Musc Denies no additional complaints, Reports back pain and Reports neck pain Neuro Reports Normal hearing present, Denies Neuro-related abnormal movements and Denies headache(s) Psych Denies no additional complaints Endo Denies fatigue Marcel/Lymph Denies easy bleeding and Denies lymphadenopathy Aller/Immun Denies lip swelling, Denies tongue swelling and Reports wheezing Physical Exam Vital Signs: Last Vital Signs Pulse 63 11/13/23 10:24 BP 120/60 11/13/23 10:24 Pulse Ox 96 11/13/23 10:24 Oxygen Delivery Method Room Air 11/13/23 10:24 BMI result Body Mass Index 20.8 Const General: alert and acute distress mild HEENT General nose exam: Abnormal external nose present and Nasal discharge present Eyes Pupils: Equal, round and reactive pupils present Neck Neck: Yes normal visual inspection, Yes full ROM and Yes no lymphadenopathy Chest Chest palpation & inspection: normal inspection of the chest Resp Effort & Inspection: normal respiratory effort, not tachypneic, no use of accessory muscles and No prolonged expiratory phase Auscultation: no crackles, no rales, no rhonchi, no wheezes and diminished lung sounds Cardio Rate: regular rate Rhythm: regular rhythm Heart sounds: S1 normal heart sound present and S2 normal heart sound present GI Palpation (GI): Tenderness to palpation present (GI) in the LUQ and in the RUQ; with no rebound tenderness, no guarding and No Rebound tenderness present Auscultation: normal bowel sounds General: Yes no CVA tenderness Back/Spine/Pelvis Back: no CVA tenderness Skin General skin exam: rashes and/or lesions noted Neuro Cranial nerves: Yes Equal, round and reactive pupils present and Yes Normal hearing present Extrem General: No no pedal edema Immunizations pneumoc 20-jeremi conj-dip cr(PF) 0.5 mL IM syringe Performing Provider: Paulino Ba MD Performing Location: [facility] Pulmonology Services Administered by: Liliana Shine LPN on 11/13/23 10:57 Dose Route Admin Location Dispensed Lot Number Expiration Date [facility] [employer] 0.5 mL IM Left Deltoid 0.5 mL [id number] 12/16/24 [employer] VIS Given Date VIS Provided VIS Publication Date 11/13/23 Single Vaccine 23 Eligibility Eligibility Date Funding Source Not [facility] Eligible 11/13/23 Private Assessment & Plan Assessment & Plan (1) COPD (chronic obstructive pulmonary disease): Comment: very severe Code(s): J44.9 - Chronic obstructive pulmonary disease, unspecified Qualifiers: COPD type: emphysema Emphysema type: centrilobular Qualified Code(s): J43.2 - Centrilobular emphysema (2) Dyspnea: Code(s): R06.00 - Dyspnea, unspecified Qualifiers: Dyspnea type: dyspnea on exertion Qualified Code(s): R06.00 - Dyspnea, unspecified (3) Pulmonary nodules: Code(s): R91.8 - Other nonspecific abnormal finding of lung field (4) Cardiomyopathy: Comment: EF 15% Code(s): I42.9 - Cardiomyopathy, unspecified Qualifiers: Cardiomyopathy type: unspecified Qualified Code(s): I42.9 - Cardiomyopathy, unspecified (5) Bronchitis: Code(s): J40 - Bronchitis, not specified as acute or chronic Plan diuresis as tolerated Continue respiratory therapy: Daliresp, Brovana, Yulperi RAFAELA as needed continue oxygen 2 L with activity. He does use a POC for portability outside of the home ([place]) CPT with Acapella valve. repeat CT scan of the chest to f/u pulmonary nodules start Pulmonary rehab at [facility] start Melatonin for sleep follow-up in 3-4 months Orders: Orders Pneumococcal 20 Immunization Today Z23 - Encounter for immunization CT chest wo IV con 4 Weeks R91.8 - Other nonspecific abnormal finding of lung field Pulmonary Rehab Today J44.9 - Chronic obstructive pulmonary disease, unspecified Medications: New melatonin 5 mg PO BEDTIME 30 days PRN 30 tabs 6RF sleep Coding Level of Care Code Est Pt Level 4 (55395) Diagnoses Centrilobular emphysema J43.2 COPD type: emphysema Emphysema type: centrilobular Dyspnea on exertion R06.00 Dyspnea type: dyspnea on exertion Pulmonary nodules R91.8 Cardiomyopathy, unspecified type I42.9 Cardiomyopathy type: unspecified Bronchitis J40 Time Spent (min) 18
== END 2023-11-13 10:58 | disposition home or self-care (01) ==
PROVIDERS: PCP Internal Medicine; Visit Provider Hospitalist
DX: J43.2 Centrilobular emphysema (principal); R06.00 Dyspnea, unspecified; R91.8 Other nonspecific abnormal finding of lung field; I42.9 Cardiomyopathy, unspecified; J40 Bronchitis, not specified as acute or chronic; Z23 Encounter for immunization
CPT/HCPCS: 99214

== ENCOUNTER → 2023-11-13 10:16 | Outpatient (BNVA) | payer MEDICARE, MEDICAID, SELFPAY | PROVIDERS: PCP Internal Medicine; Visit Provider Hospitalist | DX: J43.2 Centrilobular emphysema (principal); R06.00 Dyspnea, unspecified; R91.8 Other nonspecific abnormal finding of lung field; I42.9 Cardiomyopathy, unspecified; Z23 Encounter for immunization | CPT/HCPCS: 90471; 90677; 99212 ==

== ENCOUNTER 2024-01-18 10:41 | Outpatient (AMB) | payer MEDICARE, MEDICAID, SELFPAY ==
--- NOTE | 2024-01-18 10:44 | A.OFFVIS_ITS ---
Intake Vital Signs 01/18/24 10:46 Height 5 ft 4 in Weight 114 lb 10.246 oz BMI 19.7 Blood Pressure Location Lt brachial Position Sitting Intake Visit Reasons: 6 month follow up Intake Note: Aj presents in the office as a 6 month follow up. CC: No concerns today Allergies ciprofloxacin [From Cipro] Allergy (Severe, Verified 01/18/24 10:46) Redness on Face levofloxacin [From Levaquin] Allergy (Severe, Verified 01/18/24 10:46) Swelling in the Joints hydromorphone [From Dilaudid] Adverse Reaction (Intermediate, Verified 01/18/24 10:46) Anxiety HPI 6 month follow up HPI Details 63 yr old m being seen for f/u RECAP: He has had issues with bowel habits he has perforation and partial colectomy 2020 since then ongoing issues with pain and constipation he has been on linaclotide from DR Nickerson---on 145 mcg as the highest dose was too strong he has periumbilical pain, 10/10, crampy in nature as well as stabbing in the bottom area if he passes gas or stool it helps the pain he can get distention like a rock he is on methadone, and oxycodone prn for many years he can get nausea and vomiting if attacks get severe he has had bowel obstruction on and off and been admitted few times with NGT and fluids for short term he has had colonoscopies and capsule endoscopy last year and years before he has had at least one EGD in past 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 VITAL SIGNS:see workflow HEENT: Nonicteric sclerae, PERRLA, EOMI. Oropharynx clear. Moist mucous membranes. Conjunctivae appear well perfused. No thyroid mass. CHEST: Chest wall is nontender. HEART: Regular rate and rhythm without murmurs. LUNGS: Clear to auscultation--reduced a/e mild wheeze ABDOMEN: Soft, positive bowel sounds, tender left flank, no organomegaly. SKIN: No rash, no excessive bruising, petechiae, or purpura. NEUROLOGIC: Cranial nerves II-XII intact without motor/sensory deficit. A/P: 1/ Initially seen for abn bowel habits, now feels more or less nml and has no major sx, he saw vascular and no action needed for nutcracker as felt to be asymptomatic from it Plan: f/u with PCP, no acute GI issues righ t now [facility] Medical History Chondrocalcinosis Chronic neck and back pain Asthma Asthma-COPD overlap syndrome Asthma FH: bowel obstruction Bronchitis Pulmonary nodules Back pain Dyspnea COPD (chronic obstructive pulmonary disease) Surgical History Hx of colonoscopy History of esophagogastroduodenoscopy (EGD) History of partial colectomy History of hernia repair History of lung biopsy Family History Mother History of lung cancer Social History Household Members: Family Housing: House Do you presently have visiting nurse or other home services: Yes (impression printer'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
[2024-01-18 10:46] VITALS: BMI 19.7
== END 2024-01-18 11:33 | disposition home or self-care (01) ==
PROVIDERS: PCP Internal Medicine; Visit Provider Internal Medicine Gastroenterology
DX: R19.8 Other specified symptoms and signs involving the digestive system and abdomen (principal)
CPT/HCPCS: 99213

== ENCOUNTER → 2024-01-18 10:41 | Outpatient (BNVA) | payer MEDICARE, MEDICAID, SELFPAY | PROVIDERS: PCP Internal Medicine; Visit Provider Internal Medicine Gastroenterology | DX: R19.8 Other specified symptoms and signs involving the digestive system and abdomen (principal) | CPT/HCPCS: 99212 ==

== ENCOUNTER 2024-03-23 10:54 | Outpatient (AMB) | payer MEDICARE, MEDICAID, SELFPAY ==
--- NOTE | 2024-03-23 11:02 | A.OFFVIS_ITS ---
Vital Signs 03/23/24 11:06 Height 5 ft 4 in Weight 130 lb BMI 22.3 BP 100/60 Blood Pressure Location Lt brachial Position Sitting Pulse 79 Pulse Source Pulse Oximeter Pulse Oximetry (%) 96 Oxygen Delivery Method Room Air Intake Visit Reasons: copd Public Opinion Survey Taker Required: No Allergies ciprofloxacin [From Cipro] Allergy (Severe, Verified 03/23/24 11:09) Redness on Face levofloxacin [From Levaquin] Allergy (Severe, Verified 03/23/24 11:09) Swelling in the Joints hydromorphone [From Dilaudid] Adverse Reaction (Intermediate, Verified 03/23/24 11:09) Anxiety HPI Comments Details: The patient is a 63-year-old man with a known history of asthma COPD overlap syndrome. Patient states that he had been sick with his respiratory issues for the last 10 years. He was initially diagnosed with pneumonia. He has had bronchoscopies and also apparently a biopsy in the past. I cannot find the results at [facility]. He has also gone to [place] for further evaluation. He has been on oxygen for his respiratory failure. Currently using inogen. He has had multiple hospitalizations usually add [facility]. He also goes to [facility]. He has had multiple CT scans done for his pulmonary nodules. His last CT scan was done at [facility]. He has been on nebulized therapy as the inhalers have not been effective for him. He recently finished a prednisone taper. He states that his breathing has been a little bit more labored. Moderate severity. The weather has not helped either. He states that he quit smoking many years ago. 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 We did review a CT scan of the chest from 2015 from [facility] demonstrating areas of attenuation, ground-glass opacities along with moderate emphysema. He was asking about the xypher valves and see if he was a candidate for them. 12/23/2022 The patient is here for a hospital follow up visit. He was admitted to [facility] with acute on chronic hypoxic and hypercarbic respiratory failure. He was noted to have CM with acute CHF, EF 15%. Cardiac meds adjusted. PLaced on diuresis. Required BIPAP, although has a hard time tolerating the BIPAP. We did talk about the improtance of non invasive ventilator if he has any evicence of hypercarbia. He was taken off the prednisone and he has been doing ok and he was also taken off the theophylline. HE was placed on digoxin and Entresto, but did not tolerate the entrsto and was changed to an PATRICIA inhibitor which he is tolerating better. He was also treated got a GI infection. We are requesting the discharge summary at this time. 01/08/2023 the patient is here for pulmonary follow-up visit. He continues to have increased work of breathing. He has a maximal respiratory therapy. Had to come off the theophylline because of his other comorbidities. Is based on the very severe COPD and chronic respiratory failure along with his recent admission with hypercarbic respiratory failure to the hospital will start the patient on noninvasive ventilator. The noninvasive ventilator will help him with improving his gas exchange, improved his prognosis and decrease hospitalizations. 03/17/2023 the patient is here for pulmonary follow-up visit. The patient is feeling a lot better. He is working closely with his cardiac status. He is improving and therefore his respiratory status is improving as well. He feels a lot stronger. He is going to have a repeat echocardiogram and may indeed need a defibrillator if his EF continues to be low. In the meantime the patient did get a noninvasive ventilator. Unfortunately tried multiple masks and cannot sleep with it he tried using it during the daytime he did not tolerated. At this point the patient does not want her continue using it. I did recommend he call the [employer] [facility] in order for them to pick it up since he is not using it. We will reassess in the future depending on his CO2 if it starts going up at that time if that is the case we will look into restarting noninvasive therapy. Regards pulmonary nodules he is due for CT scan in July. In addition to all this he is trying to wean off the opiates specially because he has had multiple complications because of the opiates including constipation. Will go ahead and refer him to the [facility] in order for him to look for alternative therapies in view of his severe chronic back and neck pain. This will help his respiratory status as well. 08/11/2023 the patient is here for pulmonary follow-up visit. He was recently seen for a COPD exacerbation. He was evaluated back the end of July he was placed on Vantin and also prednisone he did not take prednisone. The is still coughing although the cough is better less productive is still not gain. Moderate severity. The patient did have a chest x-ray without any acute disease at that time. He continues with respiratory therapy. His cardiac status is stable. He has a hard time expectorating. He does have a flutter valve. I did encourage him for him to use it. The patient will go ahead and start Bactrim. If he still having a productive cough I did provide him with sputum cup in order for him to provide. 11/13/2023 the patient is here for a pulmonary follow-up visit. He is finally feeling better. Overall in a much better health state. He has been continue to use his cardioprotective medications and seems to be feeling better from the standpoint. He did recently have an echocardiogram he does not know the results. I am hopeful that his EF has gotten better. In addition to that he has no longer taking prednisone or antibiotics. He is regimen is back to his baseline. His breathing is well. He is using his oxygen with good effect. He continues his IVIG infusions every 4 weeks. The patient does have severe COPD based on his PFTs that he had back in July 2022. Now he has in a good place to start pulmonary rehabilitation. Therefore since it is close to [facility] will send a referral there. He can start rehab and close monitoring specially with underlying cardiac and pulmonary disease. After that he probably can do it on his own. 03/23/2024 the patient is here for a pulmonary follow-up visit. Overall the patient is doing a lot better. He has been stronger from the heart standpoint which is reassuring. He received respiratory medicines are also helping. He has been able to be off the oxygen which those were reassuring. Has multiple surgeries however that are pending. He is having hand surgery and also needs dental surgery and back surgery. Will go ahead and repeat his pulmonary function studies to assess his capacity. His last PFTs very significant for a very severe obstruction. Therefore he ended needs to understand that he is high risk for perioperative pulmonary complications. Therefore all the non invasive alternative options need to be looked into to see if surgery and anesthesia can be avoided altogether. Is surgery seeing only option then the patient is indeed medically optimized to undergo surgery. Will go ahead and repeat his PFTs. The patient is also having some slight discomfort right below the ribcage on the left. Pleuritic in nature. Likely musculoskeletal. I will have him get an x- ray. Also reproducible therefore could be musculoskeletal. The patient does not have any rash. He did get vaccinated for shingles. He will have an x-ray and if he has not getting better in the next several weeks he can always call so we can readdress it. [facility] Medical History (Updated 03/23/24 @ 22:38 by Paulino Ba MD) Pleuritic chest pain Pre-op chest exam Chondrocalcinosis Chronic neck and back pain Asthma Asthma-COPD overlap syndrome Asthma FH: bowel obstruction Bronchitis Pulmonary nodules Back pain Dyspnea COPD (chronic obstructive pulmonary disease) Surgical History Hx of colonoscopy History of esophagogastroduodenoscopy (EGD) History of partial colectomy History of hernia repair History of lung biopsy Family History Mother History of lung cancer Social History Household Members: Family Housing: House Do you presently have visiting nurse or other home services: Yes ([employer] 5 days/week) Alcohol intake: former Patient Tobacco Use Status: Former Tobacco user Tobacco use type: Cigarette Years Smoked: 15 years Substance Use Type: Marijuana service: No Current occupational status: disabled Review of Systems Const Denies fatigue, Denies fever(s), Denies headache(s), Denies night sweats and Denies poor appetite ENT Reports Normal hearing present, Denies change in voice, Denies headache(s), Denies lip swelling, Denies mouth pain, Reports nasal congestion, Reports nasal discharge, Reports neck pain and Denies tongue swelling Card Reports chest pain, Denies dyspnea and Reports dyspnea on exertion Resp Denies change in phlegm color, Denies chest congestion, Reports cough, Denies hemoptysis, Denies excessive phlegm production, Denies pain on inspiration, Denies dyspnea, Reports dyspnea on exertion and Reports wheezing GI Denies abdominal pain Musc Denies no additional complaints, Reports back pain and Reports neck pain Neuro Reports Normal hearing present, Denies Neuro-related abnormal movements and Denies headache(s) Psych Denies no additional complaints Endo Denies fatigue Marcel/Lymph Denies easy bleeding and Denies lymphadenopathy Aller/Immun Denies lip swelling, Denies tongue swelling and Reports wheezing Physical Exam Vital Signs: Last Vital Signs Pulse 79 03/23/24 11:06 BP 100/60 03/23/24 11:06 Pulse Ox 96 03/23/24 11:06 Oxygen Delivery Method Room Air 03/23/24 11:06 BMI result Body Mass Index 22.3 Const General: comfortable and alert HEENT General nose exam: Abnormal external nose present and Nasal discharge present Eyes Pupils: Equal, round and reactive pupils present Neck Neck: Yes normal visual inspection, Yes full ROM and Yes no lymphadenopathy Chest Chest palpation & inspection: normal inspection of the chest Resp Effort & Inspection: normal respiratory effort, not tachypneic, no use of accessory muscles and prolonged expiratory phase Auscultation: no crackles, no rales, no rhonchi, no wheezes and diminished lung sounds Cardio Rate: regular rate Rhythm: regular rhythm Heart sounds: S1 normal heart sound present and S2 normal heart sound present GI Palpation (GI): Tenderness to palpation present (GI) in the LUQ and in the RUQ; with no rebound tenderness, no guarding and No Rebound tenderness present Auscultation: normal bowel sounds General: Yes no CVA tenderness Back/Spine/Pelvis Back: no CVA tenderness Skin General skin exam: rashes and/or lesions noted Neuro Cranial nerves: Yes Equal, round and reactive pupils present and Yes Normal hearing present Extrem General: No no pedal edema Assessment & Plan Assessment & Plan (1) Pre-op chest exam: Code(s): Z01.811 - Encounter for preprocedural respiratory examination Category: Medical (2) COPD (chronic obstructive pulmonary disease): Comment: very severe Code(s): J44.9 - Chronic obstructive pulmonary disease, unspecified Category: Medical Qualifiers: COPD type: emphysema Emphysema type: centrilobular Qualified Code(s): J43.2 - Centrilobular emphysema (3) Dyspnea: Code(s): R06.00 - Dyspnea, unspecified Category: Medical Qualifiers: Dyspnea type: dyspnea on exertion Qualified Code(s): R06.00 - Dyspnea, unspecified (4) Pulmonary nodules: Code(s): R91.8 - Other nonspecific abnormal finding of lung field Category: Medical (5) Cardiomyopathy: Code(s): I42.9 - Cardiomyopathy, unspecified Category: Medical Qualifiers: Cardiomyopathy type: unspecified Qualified Code(s): I42.9 - Cardiomyopathy, unspecified (6) Bronchitis: Code(s): J40 - Bronchitis, not specified as acute or chronic Category: Medical (7) Pleuritic chest pain: Code(s): R07.81 - Pleurodynia Category: Medical Plan diuresis as tolerated Continue respiratory therapy: Daliresp, Brovana, Yulperi RAFAELA as needed continue oxygen 2 L with activity. He does use a POC for portability outside of the home ([employer]) CPT with Acapella valve. CXR PFTs The patient does have several surgeries pending. He does have severe COPD and is high risk for rosa m-operative pulmonary complications. At this point, though, he is doing well with his condition and if no other non surgical options are available, then surgery is an option. follow-up in 3-4 months Orders: Orders XR chest 2V Today R07.81 - Pleurodynia Medications: New lidocaine 5% (Lidoderm) leave on most painful area for up to 12 hrs 1 patch topical DAILY 30 ea 4RF 30 days G89.12 - Acute post-thoracotomy pain Coding Level of Care Code Est Pt Level 4 (94226) Diagnoses Pre-op chest exam Z01.811 Centrilobular emphysema J43.2 COPD type: emphysema Emphysema type: centrilobular Dyspnea on exertion R06.00 Dyspnea type: dyspnea on exertion Pulmonary nodules R91.8 Cardiomyopathy, unspecified type I42.9 Cardiomyopathy type: unspecified Bronchitis J40 Pleuritic chest pain R07.81 Time Spent (min) 17
[2024-03-23 11:06] VITALS: BP 100/60; PULSE 79; O2SAT 96; BMI 22.3
== END 2024-03-23 11:37 | disposition home or self-care (01) ==
PROVIDERS: PCP Internal Medicine; Visit Provider Hospitalist
DX: Z01.811 Encounter for preprocedural respiratory examination (principal); J43.2 Centrilobular emphysema; R06.00 Dyspnea, unspecified; R91.8 Other nonspecific abnormal finding of lung field; I42.9 Cardiomyopathy, unspecified; J40 Bronchitis, not specified as acute or chronic; R07.81 Pleurodynia
CPT/HCPCS: 99214

== ENCOUNTER 2024-03-23 10:54 | Outpatient (REF) | payer MEDICARE, MEDICAID, SELFPAY ==
--- NOTE | ~2024-03-23 | XR_ITS ---
EXAMINATION: XR CHEST CLINICAL INFORMATION: Pleurodynia. COMPARISON: 09/09/2023, 08/07/2023, 04/13/2023. TECHNIQUE: 2 views of the chest were obtained. FINDINGS: Heart size is normal. There is no gross pneumothorax. S-shaped thoracolumbar scoliosis with multilevel degenerative changes. Chronic bilateral rib deformities. Linear bibasilar opacities likely represent subsegmental atelectasis or scar. Stable bilateral blunting of the lateral costophrenic angles. Redemonstration of hyperinflation of the lungs with emphysematous changes. Postsurgical changes right costophrenic angle redemonstrated. No new focal consolidation to suggest pneumonia. Redemonstration of multiple thoracic vertebral body compression deformities. XR/XR chest 2V IMPRESSION: 1. Redemonstration of hyperinflation of the lungs with emphysematous changes. 2. Linear bibasilar opacities likely represent subsegmental atelectasis or scar. Stable bilateral blunting of the lateral costophrenic angles.
== END 2024-03-23 10:55 | disposition home or self-care (01) ==
LOC: HO.XRAY 10:54
PROVIDERS: PCP Internal Medicine; Visit Provider Hospitalist
DX: Z01.811 Encounter for preprocedural respiratory examination (principal); R07.81 Pleurodynia; J43.2 Centrilobular emphysema; R06.00 Dyspnea, unspecified; R91.8 Other nonspecific abnormal finding of lung field; I42.9 Cardiomyopathy, unspecified; J40 Bronchitis, not specified as acute or chronic
CPT/HCPCS: 71046; 99212

== ENCOUNTER 2024-05-04 11:52 | Inpatient (IN) | payer MEDICARE, MEDICAID, SELFPAY ==
[2024-05-04] VITALS (9 sets, daily range): BP systolic 85–129; BP diastolic 48–81; PULSE 54–111; RESP 16–22; TEMP 36.3–37.2; O2SAT 89–98; BMI 18.3; BMI 19.9
--- NOTE | ~2024-05-04 | XR_ITS ---
EXAMINATION: XR CHEST CLINICAL INFORMATION: Shortness of breath. COMPARISON: Chest x-ray 03/23/2024. TECHNIQUE: 2 views of the chest were obtained. FINDINGS: Wedge resection staple line in the right lateral lower lung. Hyperexpanded hyperlucent lungs consistent with emphysema. New airspace opacity in the lingula or left lower lobe compared to 03/23/2024 consistent with pneumonia. No sizable effusion. No pneumothorax. The cardiomediastinal silhouette is stable. Multiple bilateral healed rib fractures. XR/XR chest 2V IMPRESSION: Emphysema. New airspace opacity in the lingula or left lower lobe consistent with pneumonia. Recommend follow-up in 4-6 weeks to ensure resolution and establish new baseline.
--- NOTE | 2024-05-04 12:58 | ECG_ITS ---
Test Reason : CHEST TIGHTNESS, DIFF BREATHING Blood Pressure : / mmHG Vent. Rate : 096 BPM Atrial Rate : 096 BPM P-R Int : 140 ms QRS Dur : 100 ms QT Int : 342 ms P-R-T Axes : 081 -66 077 degrees QTc Int : 432 ms Normal sinus rhythm Left axis deviation Nonspecific T wave abnormality Abnormal ECG When compared with ECG of 09-SEP-2023 06:38, QRS duration has decreased ST no longer depressed in Lateral leads T wave amplitude has decreased in Inferior leads Nonspecific T wave abnormality has replaced inverted T waves in Lateral leads Referred By: Shawnee James Electronically Signed By:BERTA SAMPSON MD
--- NOTE | 2024-05-04 13:04 | ED_ITS ---
HPI - General Adult General Chief complaint: Upper Respiratory Symptoms Stated complaint: pneumonia Time Seen by Provider: 05/04/24 17:16 Source: patient Mode of arrival: ambulatory Limitations: no limitations History of Present Illness ED Provider: leti BANUELOS narrative: Patient with history of COPD recurrent pneumonias comes here for 2 weeks of cough getting worse in last 4 days with mucopurulent expectoration with chills no fever having pain in the chest pain cough especially on the left side in the back no other family member sick no recent travel patient noted to be saturating 89% on 2 L on arrival, patient is on 2 L oxygen at baseline at home Related Data Home Medications ?Medication ?Instructions ?Recorded ?Confirmed cyclobenzaprine 10 mg tablet 10 mg PO BID PRN Muscle Spasm 11/07/20 05/04/24 docusate sodium 100 mg capsule 200 mg PO BID PRN constipation 06/12/21 05/04/24 methadone 10 mg tablet 10 mg PO BID 12/03/21 05/04/24 cetirizine 10 mg tablet 10 mg PO DAILY Allergy Symptoms 10/31/22 05/04/24 nebulizers 01/08/23 07/20/23 ondansetron 4 mg disintegrating 4 mg PO Q6H PRN nausea/vomiting 01/08/23 05/04/24 tablet testosterone 1.62 % (20.25 mg/1.25 1 packet transdermal DAILY 07/22/23 05/04/24 gram) transdermal gel packet metoprolol succinate 100 mg 100 mg PO DAILY 08/27/23 05/04/24 tablet,extended release 24 hr pantoprazole 40 mg tablet,delayed 40 mg PO DAILY 08/27/23 05/04/24 release duloxetine 30 mg capsule,delayed 30 mg PO DAILY 01/18/24 05/04/24 release empagliflozin 10 mg tablet 10 mg PO DAILY 01/18/24 05/04/24 (Jardiance) lisinopril 40 mg tablet 40 mg PO DAILY 01/18/24 05/04/24 denosumab 60 mg/mL subcutaneous 60 mg subcut [id number] 05/04/24 05/04/24 syringe (Prolia) fluocinonide 0.05 % topical cream 1 appl topical BID PRN Rash 05/04/24 05/04/24 meloxicam 15 mg tablet 15 mg PO DAILY PRN low back pain 05/04/24 05/04/24 prednisone 10 mg tablet 40 mg PO DAILY 05/04/24 05/04/24 revefenacin 175 mcg/3 mL solution 175 mcg inhalation DAILY 05/04/24 05/04/24 for nebulization (Yupelri) valacyclovir 500 mg tablet 500 mg PO BID 05/04/24 05/04/24 Previous Rx's ?Medication ?Instructions ?Recorded roflumilast 500 mcg tablet 500 mcg PO DAILY #90 tabs 06/09/23 (Daliresp) albuterol sulfate 90 mcg/actuation 2 puff inhalation Q4H PRN for 08/13/23 aerosol inhaler wheezing #1 ea arformoterol 15 mcg/2 mL solution 2 ml inhalation BID #120 mL 08/13/23 for nebulization budesonide 0.5 mg/2 mL suspension 0.5 mg (2 mL) inhalation BID 30 08/13/23 for nebulization days #120 mL albuterol sulfate 2.5 mg/3 mL 2.5 mg (3 mL) inhalation Q4H PRN 02/16/24 (0.083 %) solution for nebulization for wheezing #150 mL melatonin 5 mg tablet 5 mg PO BEDTIME for insomnia #90 02/18/24 tabs lidocaine 5 % topical patch 1 patch topical DAILY 30 days #30 03/23/24 (Lidoderm) ea Allergies Allergy/AdvReac Type Severity Reaction Status Date / Time ciprofloxacin [From Cipro] Allergy Severe Redness Verified 05/04/24 12:57 on Face levofloxacin [From Levaquin] Allergy Severe Swelling Verified 05/04/24 12:57 in the Joints hydromorphone [From Dilaudid] AdvReac Intermediate Anxiety Verified 05/04/24 12:57 Review of Systems 2 Review of Systems: Yes all other systems are reviewed and are negative PMFSH Past Medical History Medical History Pleuritic chest pain Pre-op chest exam Chondrocalcinosis Chronic neck and back pain Asthma Asthma-COPD overlap syndrome Asthma FH: bowel obstruction Bronchitis Pulmonary nodules Back pain Dyspnea COPD (chronic obstructive pulmonary disease) Surgical History Hx of colonoscopy History of esophagogastroduodenoscopy (EGD) History of partial colectomy History of hernia repair History of lung biopsy Family History Family History Mother History of lung cancer Social History Social History Household Members: Spouse and Children Housing: House Do you presently have visiting nurse or other home services: No Alcohol intake: former Patient Tobacco Use Status: Former Tobacco user Tobacco use type: Cigarette Years Smoked: 15 years Second Hand Smoke Exposure: No Substance Use Type: Caffiene service: No Current occupational status: disabled Physical Exam ED Vital Signs: Vital Signs - 24 hr 05/04/24 12:52 05/04/24 18:06 05/04/24 18:06 Temperature 98.9 F Pulse Rate 111 H 79 Respiratory Rate 20 22 H Blood Pressure 129/75 85/48 L Pulse Oximetry 89 L 95 95 Oxygen Delivery Method Nasal Cannula Nasal Cannula Nasal Cannula Oxygen Flow Rate 2 05/04/24 18:54 Temperature Pulse Rate Respiratory Rate 20 Blood Pressure 95/68 Pulse Oximetry Oxygen Delivery Method Oxygen Flow Rate BMI result Body Mass Index 18.3 Appearance: Alert. Oriented X3. Frequent cough mild distress Eyes: No pallor or icterus ENT: Pharynx normal. Oral Mucosa moist Neck: Normal inspection. Neck supple. CVS: Normal heart rate and rhythm. Pulses normal. Respiratory: No respiratory distress. Equal air entry bilateral, prolonged expiration with rales at left lower lung Abdomen: Soft and nontender. Bowel sounds are present, no mass palpable, no CVA tenderness Skin: Skin warm and dry. Normal skin color. Normal skin turgor. Extremities: No lower extremity edema. No calf tenderness Neuro: Oriented X 3. No motor deficit. Course Course Course Narrative: This is an RME: Additional HPI, ROS, PE not included below will be deferred to primary provider. RME assessment and note performed by: Shawnee James PA-C This is a 63-year-old male, with a history of COPD and asthma, who presents emergency department with complaints of ongoing cough x2 weeks. Also endorsing back pain and shortness breast. He is chronically on supplemental O2, usually at 2 L. Plan: Labs, EKG, chest x-ray, further ER evaluation needed. Medications Administered Generic Name Dose Route Start Last Admin Trade Name Freq PRN Reason Stop Dose Admin Albuterol/Ipratropium 3 ml 05/04/24 20:00 05/04/24 21:00 Albuterol/Iprat 2.5/0.5mg 3 Ml Ampul.Neb INHALE 3 ml RQ4H WHILE AWAKE JAMES Administration Cyclobenzaprine HCl 10 mg 05/04/24 22:23 05/04/24 23:01 Cyclobenzaprine Hcl 10 Mg Tablet PO 10 mg BID PRN Administration Muscle Spasm Enoxaparin Sodium 40 mg 05/04/24 19:30 05/04/24 20:15 Enoxaparin Sodium 40 Mg/0.4 Ml Syringe SUBCUT 40 mg Q24H JAMES Administration Melatonin 6 mg 05/04/24 19:20 05/04/24 23:02 Melatonin 3 Mg Tablet PO 6 mg BEDTIME PRN Administration Insomnia Methadone HCl 10 mg 05/04/24 22:25 05/04/24 23:01 Methadone Hcl 10 Mg Tablet PO 10 mg BID JAMES Administration Sodium Chloride 3 ml 05/05/24 00:00 05/04/24 23:03 0.9 % Sodium Chloride Flush 3 Ml Syringe IVFLUSH 3 ml QSHIFT JAMES Administration Valacyclovir HCl 500 mg 05/04/24 22:25 05/04/24 23:01 Valacyclovir Hcl 500 Mg Tablet PO 500 mg BID JAMES Administration Discontinued Medications Generic Name Dose Route Start Last Admin Trade Name Brigid PRN Reason Stop Dose Admin Sodium Chloride 1,000 mls @ 999 mls/hr 05/04/24 17:25 05/04/24 19:51 Ns IV 05/04/24 18:25 Infused .Q1H1M ONE Infusion Ceftriaxone Sodium 1 gm/ 50 mls @ 100 mls/hr 05/04/24 17:26 05/04/24 19:03 Sodium Chloride IV 05/04/24 17:55 Infused ONCE ONE Infusion Azithromycin 500 mg/ Sodium 250 mls @ 125 mls/hr 05/04/24 17:29 05/04/24 20:32 Chloride IV 05/04/24 19:28 Infused ONCE ONE Infusion Sodium Chloride 1,000 mls @ 999 mls/hr 05/04/24 20:00 05/04/24 21:19 Ns IV 05/04/24 21:00 Infused .Q1H1M JAMES Infusion Methylprednisolone Sodium Succinate 125 mg 05/04/24 20:00 05/04/24 20:16 Methylprednisolone Sod Succ 125 Mg/2 Ml Vial IVPUSH 05/04/24 20:01 125 mg ONCE ONE Administration Medical Decision Making Medical Decision Making [facility] Narrative: Patient with left lower lobe lingular pneumonia with sepsis will admit patient for IV antibiotics fluid was resuscitated patient not in septic shock Differential Diagnosis Differential Diagnoses: The differential diagnosis associated with the presentation includes Pneumonia/aspiration pneumonia/atypical pneumonia/viral infection Admission/Observation Consideration of admission/observation: Escalation of care including admission/observation considered Consult Healthcare Provider Management of the patient was discussed with: Hospitalist Lab Data [facility] Lab Attestation statement: I reviewed the patient's lab results. 05/04/24 13:21 05/04/24 13:21 Labs: Lab Results 05/04/24 05/04/24 Range/Units 13:21 18:03 WBC 21.7 H (4.8-10.8) X10*3/uL RBC 5.14 (4.60-5.80) X10*6/uL Hgb 16.9 (14.0-18.0) g/dl Hct 49.3 (42.0-52.0) % MCV 95.9 (80.0-98.0) fL MCH 32.9 (27.0-33.0) pg MCHC 34.3 (31.0-36.0) g/dl RDW 14.4 (11.0-16.0) % Plt Count 237 D (160-400) X10*3/uL MPV 9.6 (9.4-12.4) fL Immature Gran % (Auto) 0.4 (0.0-0.4) % Neut % (Auto) 93.2 H (45-73) % Lymph % (Auto) 1.6 L (20-40) % [place] % (Auto) 4.4 (2-11) % Eos % (Auto) 0.1 (0-4) % Baso % (Auto) 0.3 (0-2) % Lymph # (Auto) 0.4 L (1.2-4.9) X10*3/uL [place] # (Auto) 1.0 (0.1-1.2) X10*3/uL Eos # (Auto) 0.0 (0.0-0.4) X10*3/uL Baso # (Auto) 0.1 (0.0-0.2) X10*3/uL Abs Immat Gran (auto) 0.08 H (0.00-0.03) X10*3/uL Absolute Neuts (auto) 20.2 H (2.0-8.3) x10*3/uL Absolute Nucleated RBC 0.000 (0.0-0.012) X10*3/uL Nucleated RBC % (auto) 0.0 (0.0-0.2) /100WBC Smear Tech's Comments VERIFIED PT 11.2 (11.1-13.3) SEC INR 0.9 (0.9-1.1) Sodium 135 (135-145) mmol/L Potassium 4.9 (3.3-5.1) mmol/L Chloride 102 (96-108) mmol/L Carbon Dioxide 24 (22-29) mmol/L Anion Gap 14 (12-20) BUN 30 H (9-16) mg/dL Creatinine 1.27 (0.5-1.4) mg/dL Estim Creat Clear Calc 42.5 Estimated GFR 57 Random Glucose 111 (60-115) mg/dL Lactic Acid 2.0 (0.5-2.0) mmol/L Calcium 9.7 (8.4-10.2) mg/dL Magnesium 1.8 (1.6-2.6) mg/dL Total Bilirubin 0.6 (0.0-1.0) mg/dL Direct Bilirubin 0.2 (0.0-0.5) mg/dL AST 31 (5-37) U/L ALT 34 (0-40) U/L Alkaline Phosphatase 51 (39-117) U/L Troponin I High Sens 7.7 D (<3.5-35.0) ng/L Total Protein 7.6 (6.5-8.0) g/dL Albumin 4.2 (3.5-5.0) g/dL Influenza Type A (PCR) NEGATIVE (Negative) Influenza Type B (PCR) NEGATIVE (Negative) RSV RNA Qual (PCR) NEGATIVE (Negative) SARS-CoV-2 RNA (RT-PCR) NEGATIVE (Negative) Critical Care Time Critical Care Time Critical Care Time: Yes Total Critical Care Time: 55 Attestation: The patient was critically ill with a high probability of imminent or life threatening deterioration. I spent greater than ?60??minutes of discontinuous time evaluating the patient,delivering critical care at the bedside, discussing and evaluating pertinent data with consultants. Critical care time does not include time spent performing separately billable procedures or teaching. Total time spent performing critical care was 55???minutes. Discharge Plan Discharge Clinical Impression: Pneumonia COPD (chronic obstructive pulmonary disease) Qualifiers: COPD type: emphysema Emphysema type: centrilobular Qualified Code(s): J43.2 - Centrilobular emphysema Patient Disposition: Admitted As Inpatient Interventions: Admission Worksheet (ED) Last Done: 05/04/24 21:23 Discharge Date/Time: 05/04/24 22:06
--- OUTSIDE RECORDS SUMMARY | 2024-05-04 13:17 | XMS_ITS | Continuity of Care Document ---
Author Organization [facility] Address [address] [place] [id number]- Care Team Providers Care Agent Licensing Clerk Name Role Phone Declan Muller MD Primary Care Physician [place] [facility] [place] [facility] [address] [place] [id number] [place] Allergies, Adverse Reactions, Alerts Substance Reaction Severity Status Augmentin gi upset Active Levaquin tendon pains Active Bactrim DS lightheaded and loopy Acti ve Immunizations Given and Recorded Vaccine Date Status Refusal Reason SARS-CoV-2 (COVID-19) mRNA BNT-162b2 vac 03/28/21 Recorded SARS-CoV-2 (COVID-19) mRNA BNT-162b2 vac 03/02/21 Recorded Influenza Virus Vaccine (oldterm) 1 06/19/19 Recor ded influenza virus vaccine, inactivated 2 06/20/18 Re corded influenza virus vaccine, inactivated 3 07/17/16 Re corded influenza virus vaccine, inactivated 4 08/04/15 Re corded influenza virus vaccine, inactivated 5 07/13/14 Gi seferino influenza virus vaccine, inactivated 6 07/03/11 Gi seferino influenza virus vaccine, inactivated 7 12/02/09 Gi seferino pneumococcal 13-valent vaccine 8 09/06/15 Recorded tetanus-diphtheria toxoids (Td) 9 07/21/14 Given FluLaval (oldterm) 10 08/08/10 Given pneumococcal 23-valent vaccine 12/02/09 Given pneumococcal 23-valent vaccine 11 12/02/09 Given Influenza Vaccine (oldterm) 12 08/19/08 Given 1Result Comment: DONE AT [facility] 2Result Comment: [06/22/2018] given at [facility] 5Admin Note: done @ clinic 6Admin Note: given w/out incident/VIS given 7Result Comment: [id number] 8[facility] History[facility] 9Result Comment: [07/21/2014] given w/out incident 10Admin Note: [facility] INFO GIVEN TO PATIENT 11Result Comment: lot #[id number] 12Admin Note: [facility] Medications albuterol 0.083% inhalation solution 3 mL = 2.5 mg, Inhalation, Every 6 hours, PRN for wheezing, # 360 mL, 8 Refills, Maintenance, 07/07/19 14:14:00 EDT, Solution, ICD 10 J44.9, PLEASE BILL THROUGH MED B [id number] Start Date: 07/07/19 Status: Ordered alendronate 70 mg oral tablet 1 tablet = 70 mg, By Mouth, Every week, # 4 tablet, 0 Refills, Maintenance, 04/02/20 11:08:00 EDT, Tablet Start Date: 04/02/20 Status: Ordered Ativan 1 mg oral tablet 1 tablet = 1 mg, By Mouth, 3 times a day, PRN for anxiety, # 84 each, 0 Refills, Acute 03/31/22 17:00:00 EDT, 02/28/22 12:56:00 EDT, Tablet, [id number], 165, cm, 02/21/22 9:03:00 EDT, Height,54.5, kg, 02/21/22 9:06:00 EDT, Dry Weight Start Date: 02/28/22 Stop Date: 03/31/22 Status: Ordered Brovana 15 mcg/2 mL inhalation solution 1 each, Neb, 2 times a day, not to exceed 2 doses/day do not swallow, # 60 each, 1 Refills, Maintenance, 04/24/20 16:53:00 EDT, Solution, [id number], ICD Code J44.9, 165, cm, 03/12/20 8:39:00EDT, Height, 70.7, kg, 03/08/20 16:16:00 EDT, Dry... Start Date: 04/24/20 Status: Ordered budesonide 0.25 mg/2 mL inhalation suspension 0.25 mg, 2, mL, Neb, 2 times a day, for COPD J44.9. rinse mouth after use, # 120 mL, Refills 6, Tot. Refills 6, Maintenance, 03/06/20 11:34:00 EDT, Suspension, Route to Pharmacy Electronically, [id number], [facility]/pharmacy #[id number],... Start Date: 03/06/20 Status: Ordered calcium-vitamin D 600 mg-400 intl units oral tablet See Instructions, 1 tablet By Mouth twice daily, # 60 tablet, 11 Refills, Maintenance, 10/28/21 10:33:00 EST, Tablet, [facility]/pharmacy #[id number], 1 tablet By Mouth twice daily, 165, cm, 10/25/21 17:56:00 EST, Height, 54.5, kg, 10/25/21 17:05:00 EST, Dry Weight Start Date: 10/28/21 Status: Ordered cyclobenzaprine 10 mg oral tablet 1, tablet, By Mouth, Daily, PRN, # 30 tablet, Refills 11, Tot. Refills 11, Physician Stop 12/02/22 16:09:00 EST, NEEDED FOR PAIN, 12/02/21 16:09:00 EST, Route to Pharmacy Electronically, [facility]/pharmacy #[id number], 165, cm, 10/25/21 17:56:00 EST, Height, 5... Start Date: 12/02/21 Stop Date: 12/02/22 Status: Ordered Daliresp By Mouth, Daily, 0 Refills, Maintenance, 03/06/22 12:15:00 EDT, Partial fill upon patient request if the prescription is for a schedule II opioid drug. Start Date: 03/06/22 Status: Ordered docusate sodium 100 mg oral capsule 2 capsule, By Mouth, 2 times a day, PRN NEEDED FOR CONSTIPATION FOR, # 120 capsule, 5 Refills, Maintenance, 12/30/21 10:25:00 EDT, [facility]/pharmacy #[id number], 165, cm, 12/23/21 9:22:00 EST, Height, 54.5, kg, 10/25/21 17:05:00 EST, Dry Weight Start Date: 12/30/21 Stop Date: 06/28/22 Status: Ordered duloxetine 20 mg oral enteric coated capsule 1 capsule = 20 mg, By Mouth, 2 times a day, # 60 each, 11 Refills, Maintenance, 07/16/21 15:55:00 EDT, Capsule, [facility]/pharmacy #202, Partial fill upon patient request if the prescription is for a schedule II opioid drug., 165, cm, 06/05/21 10:01:00 EDT... Start Date: 07/16/21 Status: Ordered gabapentin 400 mg oral capsule 1, capsule, By Mouth, 3 times a day, # 90 each, Refills 11, Tot. Refills 11, Maintenance, 09/09/21 11:35:00 EST, Route to Pharmacy Electronically, [facility]/pharmacy #202, dose increase, refill when needed, 165, cm, 09/09/21 11:19:00 EST, Height, 61.4, kg,... Start Date: 09/09/21 Status: Ordered Linzess 290 mcg oral capsule 1 capsule = 290 mcg, By Mouth, Daily, # 30 capsule, 3 Refills, Maintenance, 02/24/22 15:40:00 EDT, Capsule, [facility]/pharmacy #202, Partial fill upon patient request if the prescription is for a scheduleII opioid drug., 165, cm, 02/21/22 9:03:00 EDT, Hei... Start Date: 02/24/22 Status: Ordered methadone 10 mg oral tablet See Instructions, PRN for pain, 2 tablets By Mouth in the morning, 1 tablet in the afternoon, and 3tablets by mouth in the evening 28 day schedule, # 168 each, 0 Refills, Acute 03/31/22 17:00:00 EDT, 02/28/22 12:55:00 EDT, Tablet, [facility]/pharmacy #20... Start Date: 02/28/22 Stop Date: 03/31/22 Status: Ordered nystatin [id number] u/ml oral suspension 5 mL, By Mouth, 4 times a day, # 480 mL, 1 Refills, Physician Stop 02/25/23 10:07:00 EDT, 02/25/22 10:07:00 EDT, [id number], 165, cm, 02/21/22 9:03:00 EDT, Height, 54.5, kg, 02/21/22 9:06:00 EDT, Dry Weight Start Date: 02/25/22 Stop Date: 02/25/23 Status: Ordered oxyCODONE 10 mg oral tablet 2 tablet = 20 mg, By Mouth, Every 4 hours, PRN as needed for pain, 28 day prescription patient may fill for less than quantity prescribed, # 224 tablet, 0 Refills, Acute 03/31/22 17:00:00 EDT, 02/28/22 12:55:00 EDT, Tablet, [facility], refill... Start Date: 02/28/22 Stop Date: 03/31/22 Status: Ordered pantoprazole 40 mg oral delayed release tablet 1 tablet, By Mouth, Daily, PRN NEEDED FOR STOMACH PAIN, # 90 tablet, 3 Refills, 165, cm, 06/05/21 10:01:00 EDT, Height, 61.4, kg, 03/15/21 10:38:00 EDT, Dry Weight Start Date: 08/16/21 Status: Ordered predniSONE 5 mg oral tablet See Instructions, Alternating dose of 10mg/5 mg daily, 0 Refills, Maintenance, 03/06/22 11:51:00 EDT, Partial fill upon patient request if the prescription is for a schedule II opioid drug. Start Date: 03/06/22 Status: Ordered testosterone 2% transdermal cream 0 Refills, Maintenance, 03/06/22 11:53:00 EDT, Partial fill upon patient request if the prescription is for a schedule II opioid drug. Start Date: 03/06/22 Status: Ordered Ventolin HFA 108 mcg/inh inhalation aerosol with adapter 2 puffs, Inhalation, 4 times a day, PRN for wheezing, # 18 Gm, 11 Refills, Maintenance, 01/13/20 11:40:00 EDT, Aerosol, [facility], 165, cm, 11/17/19 10:08:00 EST, Height, 53.6, kg, 10/14/19 10:56:00 EST, Dry Weight Start Date: 01/13/20 Status: Ordered Yupelri 175 mcg/3 mL inhalation solution = 175 mcg, Inhalation, Daily, j44.9 please bill through med B, # 90 mL, 2 Refills, Maintenance, 08/12/21 16:05:00 EDT, [facility], ICD 10 J44.9, PLEASE BILL THROUGH MED B [id number], 165, cm, 06/05/21 10:01:00 EDT, Height, 61.4, kg, ... Start Date: 08/12/21 Status: Ordered ZyrTEC 10 mg oral tablet 1 tablet = 10 mg, By Mouth, Daily, PRN Sinus Symptoms, # 30 tablet, 11 Refills, Maintenance, 01/20/22 15:23:00 EDT, Tablet, [id number], 165, cm, 12/23/21 9:22:00 EST, Height, 54.5, kg, 10/25/21 17:05:00 EST, Dry Weight Start Date: 01/20/22 Status: Ordered Problem List Condition Effective Dates Status Health Status Inform ant Anxiety disorder(Confirmed) Active Central sleep apnea(Confirmed) Active Chest pain(Confirmed) Active Chronic obstructive lung disease(Confirmed) Active Immunodeficiency disorder, hypogammaglobulinemia(Confirmed) Active Lumbar compression fracture(Confirmed) Active Functional bowel disorder(Confirmed) Active GERD - Gastro-esophageal ref lux disease(Confirmed) Active Hyperglycemia(Confirmed) Active Hypertension(Confirmed) Active Lumbar radiculopathy(Confirmed) Active ALOK (obstructive sleep apnea)(Confirmed) Active Polyp of colon(Confirmed) Active Complex sleep apnea syndrome(Confirmed) Active Fatty liver(Confirmed) Active Umbilical herniorrhaphy(Confirmed) Active Social History Social History Type Response Smoking Status Former smoker, quit more than 30 days ago; Other: quit 20 years ago; entered on: 09/24/19 Sex
--- OUTSIDE RECORDS SUMMARY | 2024-05-04 13:17 | XMS_ITS | Continuity of Care Document ---
Author Organization [facility] Address [address] [place] [address]- Care Team Providers Care Project Production Engineer Name Role Phone Declan Muller MD Primary Care Physician [phone] [place] [facility] [place] Date(s): 03/13/21 - 04/21/21 [facility] [address] [place], [place] [address] Attending Physician: Declan Muller MD Allergies, Adverse Reactions, Alerts Substance Reaction Severity Status Augmentin gi upset Active Levaquin tendon pains Active Immunizations Given and Recorded Vaccine Date Status Refusal Reason Influenza Virus Vaccine (oldterm) 1 06/19/19 Recor [...] 12 08/19/08 Given 1Result Comment: [facility] 2Result Comment: [06/22/2018] [facility] 5Admin Note: done @ clinic 6Admin Note: given w/out incident/VIS given 7Result Comment: [id number], [id number] [facility] 9Result Comment: [07/21/2014] given w/out incident 10Admin Note: [facility] INFO GIVEN TO PATIENT 11Result Comment: lot #[id number] 12Admin Note: [facility] albuterol 0.083% inhalation solution 3 mL = 2.5 mg, Inhalation, Every 6 hours, PRN for wheezing, # 360 mL, 8 Refills, Maintenance, 07/07/19 14:14:00 EDT, Solution, ICD 10 J44.9, PLEASE BILL THROUGH MED B [id number] Start Date: 07/07/19 Status: Ordered alendronate 70 mg oral tablet 1 tablet = 70 mg, By Mouth, Every week, # 4 tablet, 0 Refills, Maintenance, 04/02/20 11:08:00 EDT, Tablet Start Date: 04/02/20 Status: Ordered Ativan 1 mg oral tablet 1 tablet = 1 mg, By Mouth, 3 times a day, PRN for anxiety, # 84 each, 0 Refills, Acute 05/20/21 17:00:00 EDT, 04/19/21 10:13:00 EDT, Tablet, [facility]/pharmacy #2024, 165, cm, 03/15/21 10:38:00 EDT, Height, 61.4, kg, 03/15/21 10:38:00 EDT, Dry Weight Start Date: 04/19/21 Stop Date: 05/20/21 Status: Ordered Brovana 15 mcg/2 mL inhalation solution 1 each, Neb, 2 times a day, not to exceed 2 doses/day do not swallow, # 60 each, 1 Refills, Maintenance, 04/24/20 16:53:00 EDT, Solution, [facility]/pharmacy #2024, ICD Code J44.9, 165, cm, 03/12/20 8:39:00EDT, Height, 70.7, kg, 03/08/20 16:16:00 EDT, Dry... Start Date: 04/24/20 Status: Ordered budesonide 0.25 mg/2 mL inhalation suspension 0.25 mg, 2, mL, Neb, 2 times a day, for COPD J44.9. rinse mouth after use, # 120 mL, Refills 6, Tot. Refills 6, Maintenance, 03/06/20 11:34:00 EDT, Suspension, Route to Pharmacy Electronically, [id number], [facility]/pharmacy #2024,... Start Date: 03/06/20 Status: Ordered calcium-vitamin D 600 mg-400 intl units oral tablet See Instructions, 1 tablet By Mouth twice daily, # 60 tablet, 11 Refills, Maintenance, 07/04/20 15:50:00 EDT, Tablet, [facility]/pharmacy #2024, 1 tablet By Mouth twice daily, 165, cm, 05/17/20 16:00:00 EDT, Height, 67, kg, 05/01/20 10:40:00 EDT, Dry Weight Start Date: 07/04/20 Status: Ordered cock up right wrist splint cock up right wrist splint, See Instructions, # 1 each, Refills 0, Tot. Refills 0, Maintenance, useat night when sleeping diagnosis: compressive neuropathy right hand with paresthesia, 10/15/20 18:37:00 EST, Supply Start Date: 10/15/20 Status: Ordered cyclobenzaprine 10 mg oral tablet 1, tablet, By Mouth, 2 times a day, PRN, # 60 each, Refills 5, Tot. Refills 5, Acute 11/21/21 12:24:00 EST, NEEDED FOR PAIN, 11/21/20 12:23:00 EST, Route to Pharmacy Electronically, [facility]/pharmacy #2024, 165, cm, 05/17/20 16:00:00 EDT, Height, 66.5,... Start Date: 11/21/20 Stop Date: 11/21/21 Status: Ordered docusate sodium 100 mg oral capsule 2 capsule, By Mouth, 2 times a day, PRN NEEDED FOR CONSTIPATION FOR, # 120 capsule, 11 Refills, Maintenance, 11/21/20 16:36:00 EST, [facility] STORE [id number], 165, cm, 05/17/20 16:00:00 EDT, Height, 66.5, kg, 09/21/20 8:46:00 EST, Dry Weight Start Date: 11/21/20 Stop Date: 12/21/20 Status: Ordered duloxetine 20 mg oral enteric coated capsule 1 capsule = 20 mg, By Mouth, Daily, 0 Refills, Maintenance, 04/02/20 9:18:00 EDT Start Date: 04/02/20 Status: Ordered gabapentin 400 mg oral capsule 1, capsule, By Mouth, 2 times a day, # 60 capsule, Refills 11, Tot. Refills 0, Maintenance, 01/30/21 11:23:00 EDT, Route to Pharmacy Electronically, [facility] [address], 165, cm, 12/20/20 10:40:00 EST, Height, 66.7, kg, 01/18/21 9:32:00 EDT, Dry Weight Start Date: 01/30/21 Status: Ordered losartan 50 mg oral tablet 1 tablet = 50 mg, By Mouth, Daily, # 30 tablet, 0 Refills, Maintenance, 03/12/21 10:17:00 EDT, Tablet, Partial fill upon patient request if the prescription is for a schedule II opioid drug. Start Date: 03/12/21 Status: Ordered naproxen 500 mg oral tablet 1 tablet = 500 mg, By Mouth, 2 times a day, PRN joint or muscle pain, # 60 tablet, 11 Refills, Acute 06/11/21 11:08:00 EDT, 06/11/20 11:08:00 EDT, Tablet, [facility]/pharmacy #2025, 165, cm, 05/17/20 16:00:00 EDT, Height, 67, kg, 05/01/20 10:40:00 EDT, Dry W... Start Date: 06/11/20 Stop Date: 06/11/21 Status: Ordered oxyCODONE 10 mg oral tablet 2 tablet = 20 mg, By Mouth, Every 4 hours, PRN as needed for pain, 28 day prescription patient may fill for less than quantity prescribed, # 224 tablet, 0 Refills, Acute 05/20/21 17:00:00 EDT, 04/19/21 10:13:00 EDT, Tablet, [facility]/pharmacy #2025, refill... Start Date: 04/19/21 Stop Date: 05/20/21 Status: Ordered pantoprazole 40 mg oral delayed release tablet 1 tablet, By Mouth, Daily, PRN NEEDED FOR STOMACH PAIN, # 90 tablet, 0 Refills, Maintenance, 02/27/21 7:47:00 EDT, 165, cm, 12/20/20 10:40:00 EST, Height, 66.7, kg, 01/18/21 9:32:00 EDT, Dry Weight Start Date: 02/27/21 Status: Ordered roflumilast 250 mcg oral tablet 1 tablet = 250 mcg, By Mouth, Daily, # 90 tablet, 3 Refills, Maintenance, 07/04/20 15:51:00 EDT, [facility]/pharmacy #2025, 165, cm, 05/17/20 16:00:00 EDT, Height, 67, kg, 05/01/20 10:40:00 EDT, Dry Weight Start Date: 07/04/20 Status: Ordered Senna 8.6 mg oral tablet 8.6 mg, 1, tablet, By Mouth, Daily, # 30 tablet, Refills 11, Tot. Refills 11, Maintenance, 03/02/2017:09:00 EDT, Route to Pharmacy Electronically, [facility]/pharmacy #2024 Tablet, 165, cm, 01/27/20 8:11:00 EDT, Height, 53.6, kg, 10/14/19 10:56:00 EST, Dry... Start Date: 03/02/20 Status: Ordered Ventolin HFA 108 mcg/inh inhalation aerosol with adapter 2 puffs, Inhalation, 4 times a day, PRN for wheezing, # 18 Gm, 11 Refills, Maintenance, 01/13/20 11:40:00 EDT, Aerosol, [facility]/pharmacy #2024, 165, cm, 11/17/19 10:08:00 EST, Height, 53.6, kg, 10/14/19 10:56:00 EST, Dry Weight Start Date: 01/13/20 Status: Ordered Yupelri 175 mcg/3 mL inhalation solution = 175 mcg, Inhalation, Daily, j44.9 please bill through med B, # 120 mL, 3 Refills, Maintenance, 01/22/21 8:54:00 EDT, [facility], ICD 10 J44.9, PLEASE BILL THROUGH MED B [id number], 165, cm, 12/20/20 10:40:00 EST, Height, 66.7, kg, 01/18/... Start Date: 01/22/21 Status: Ordered ZyrTEC 10 mg oral tablet 1 tablet = 10 mg, By Mouth, Daily, PRN Sinus Symptoms, # 30 tablet, 11 Refills, Maintenance, 04/02/18 11:18:13 EDT, Tablet Start Date: 04/02/18 Status: Ordered Problem List Condition Effective Dates Status Health Status Inform ant Central sleep apnea(Confirmed) Active Chest pain(Confirmed) Active Chronic obstructive lung disease(Confirmed) Active Immunodeficiency disorder, hypogammaglobulinemia(Confirmed) Active Lumbar compression fracture(Confirmed) Active GERD - Gastro-esophageal ref lux disease(Confirmed) [...]
--- OUTSIDE RECORDS SUMMARY | 2024-05-04 13:18 | XMS_ITS | Continuity of Care Document ---
Author Organization [facility] Address [address] [place] [address]- Care Team Providers Care Music Publisher Name Role Phone Declan Muller MD Primary Care Physician Encounter [facility] Date(s): 03/27/21 - 05/17/21 [facility] [address] [place], [place] [address] Attending Physician: Declan Muller MD Allergies, Adverse Reactions, Alerts Substance Reaction Severity Status Levaquin tendon pains Active Augmentin gi upset Active Immunizations Given and Recorded Vaccine Date [...] Note: given w/out incident/VIS given 7Result Comment: [id number], [id number] [facility] 9Result Comment: [07/21/2014] given w/out incident 10Admin Note: [facility] INFO GIVEN TO PATIENT 11Result Comment: lot #[id number] 12Admin Note: [facility] albuterol 0.083% inhalation solution 3 mL = 2.5 mg, Inhalation, Every 6 hours, PRN for wheezing, # 360 mL, 8 Refills, Maintenance, 07/07/19 14:14:00 EDT, Solution, ICD 10 J44.9, PLEASE BILL THROUGH MED B [id number] Start Date: 07/07/19 Status: Ordered alendronate 70 mg oral tablet 1 tablet = 70 mg, By Mouth, Every week, # 4 tablet, 0 Refills, Maintenance, 04/02/20 11:08:00 EDT, Tablet Start Date: 04/02/20 Status: Ordered Ativan 1 mg oral tablet 1 tablet = 1 mg, By Mouth, 3 times a day, PRN for anxiety, # 84 each, 0 Refills, Acute 06/17/21 17:00:00 EDT, 05/17/21 8:06:00 EDT, Tablet, [facility], 165, cm, 05/07/21 11:28:00 EDT, Height,61.4, kg, 03/15/21 10:38:00 EDT, Dry Weight Start Date: 05/17/21 Stop Date: 06/17/21 Status: Ordered Brovana 15 mcg/2 mL inhalation [...] 11:34:00 EDT, Suspension, Route to Pharmacy Electronically, [id number], [facility]/pharmacy #2024,... Start Date: 03/06/20 Status: Ordered calcium-vitamin D 600 mg-400 intl units oral tablet See Instructions, 1 tablet By Mouth twice daily, # 60 tablet, 11 Refills, Maintenance, 07/04/20 15:50:00 EDT, Tablet, [facility]/pharmacy #2024, 1 tablet By Mouth twice daily, [...] 12:23:00 EST, Route to Pharmacy Electronically, [facility]/pharmacy #2024, 165, cm, 05/17/20 16:00:00 EDT, Height, 66.5,... Start Date: 11/21/20 Stop Date: 11/21/21 Status: Ordered docusate sodium 100 mg oral capsule 2 capsule, By Mouth, 2 times a day, PRN NEEDED FOR CONSTIPATION FOR, # 120 capsule, 11 Refills, Maintenance, 11/21/20 16:36:00 EST, [facility] ST[id number], 165, cm, 05/17/20 16:00:00 EDT, Height, 66.5, [...] 11:23:00 EDT, Route to Pharmacy Electronically, [facility] STORE [address], 165, cm, 12/20/20 10:40:00 EST, Height, 66.7, kg, 01/18/21 9:32:00 EDT, Dry Weight Start Date: 01/30/21 Status: Ordered losartan 50 mg oral tablet 1 tablet = 50 mg, By Mouth, Daily, # 30 tablet, 0 Refills, Maintenance, 03/12/21 10:17:00 EDT, Tablet, Partial fill upon patient request if the prescription is for a schedule II opioid drug. Start Date: 03/12/21 Status: Ordered methadone 10 mg oral tablet See Instructions, PRN for pain, 2 tablets By Mouth in the morning, 1 tablet in the afternoon, and 3tablets by mouth in the evening 28 day schedule, # 168 each, 0 Refills, Acute 06/17/21 17:00:00 EDT, 05/17/21 8:06:00 EDT, Tablet, [facility]/pharmacy #202... Start Date: 05/17/21 Stop Date: 06/17/21 Status: Ordered naproxen 500 mg oral tablet 1 tablet = 500 mg, By Mouth, 2 times a day, PRN joint or muscle pain, # 60 tablet, 11 Refills, Acute 06/11/21 11:08:00 EDT, 06/11/20 11:08:00 EDT, Tablet, [facility]/pharmacy #202, 165, cm, 05/17/20 16:00:00 EDT, Height, 67, kg, 05/01/20 10:40:00 EDT, Dry W... Start Date: 06/11/20 Stop Date: 06/11/21 Status: Ordered oxyCODONE 10 mg oral tablet 2 tablet = 20 mg, By Mouth, Every 4 hours, PRN as needed for pain, 28 day prescription patient may fill for less than quantity prescribed, # 224 tablet, 0 Refills, Acute 06/17/21 17:00:00 EDT, 07/30/21 8:06:00 EDT, Tablet, [facility]/pharmacy #202, refill... Start Date: 05/17/21 Stop Date: 06/17/21 Status: Ordered pantoprazole 40 mg oral delayed [...] 3 Refills, Maintenance, 07/04/20 15:51:00 EDT, [facility]/pharmacy #2025, 165, cm, 05/17/20 16:00:00 EDT, Height, 67, kg, 05/01/20 10:40:00 EDT, Dry Weight Start Date: 07/04/20 Status: Ordered Senna 8.6 mg oral tablet 8.6 mg, 1, tablet, By Mouth, Daily, # 30 tablet, Refills 11, Tot. Refills 11, Maintenance, 03/02/2017:09:00 EDT, Route to Pharmacy Electronically, [facility]/pharmacy #2024 Tablet, 165, cm, 01/27/20 8:11:00 EDT, Height, 53.6, kg, 10/14/19 10:56:00 EST, Dry... Start Date: 03/02/20 Status: Ordered Ventolin HFA 108 mcg/inh inhalation aerosol with adapter 2 puffs, Inhalation, 4 times a day, PRN for wheezing, # 18 Gm, 11 Refills, Maintenance, 01/13/20 11:40:00 EDT, Aerosol, [facility], 165, cm, 11/17/19 10:08:00 EST, Height, 53.6, kg, 10/14/19 10:56:00 EST, Dry Weight Start Date: 01/13/20 Status: Ordered Yupelri 175 mcg/3 mL inhalation solution = 175 mcg, Inhalation, Daily, j44.9 please bill through med B, # 120 mL, 3 Refills, Maintenance, 01/22/21 8:54:00 EDT, [facility], ICD 10 J44.9, PLEASE BILL THROUGH MED B [id number], 165, cm, 12/20/20 10:40:00 EST, Height, 66.7, [...]
--- OUTSIDE RECORDS SUMMARY | 2024-05-04 13:18 | XMS_ITS | Continuity of Care Document ---
Author Organization [facility] Address [address] [place] [address]- Care Team Providers Care Campus Executive Director Name Role Phone Declan Muller MD Primary Care Physician [phone] Encounter [facility] [place] Date(s): 01/13/22 - 02/12/22 [facility] [address] [place], [place] [address] Attending Physician: Declan Muller MD Allergies, [...] 12 08/19/08 Given 1Result Comment: DONE AT [facility] 2Result Comment: [06/22/2018] given at [facility] 3Location History: [facility] 5Admin Note: done @ clinic 6Admin Note: given w/out incident/VIS given 7Result Comment: [id number] 8[facility] 9Result Comment: [07/21/2014] given w/out incident 10Admin Note: [facility] INFO GIVEN TO PATIENT 11Result Comment: lot #[id number] 12Admin Note: [facility] albuterol 0.083% inhalation solution 3 mL = 2.5 mg, Inhalation, Every 6 hours, PRN for wheezing, # 360 mL, 8 Refills, Maintenance, 07/07/19 14:14:00 EDT, Solution, ICD 10 J44.9, PLEASE BILL THROUGH MED B [id number] Start Date: 07/07/19 Status: Ordered alendronate 70 mg oral tablet 1 tablet = 70 mg, By Mouth, Every week, # 4 tablet, 0 Refills, Maintenance, 04/02/20 11:08:00 EDT, Tablet Start Date: 04/02/20 Status: Ordered Ativan 1 mg oral tablet 1 tablet = 1 mg, By Mouth, 3 times a day, PRN for anxiety, # 84 each, 0 Refills, Acute 01/28/23 13:06:00 EDT, 01/28/22 13:05:00 EDT, Tablet, [facility]/pharmacy #2024, 165, cm, 01/23/22 11:55:00 EDT, Height, 54.5, kg, 10/25/21 17:05:00 EST, Dry Weight Start Date: 01/28/22 Stop Date: 01/28/23 Status: Ordered azithromycin 250 mg oral tablet See Instructions, 1 tablet By Mouth Daily on thursday, thursday, and thursday, # 12 each, 11 Refills, Maintenance, 07/16/21 15:56:00 EDT, [facility], Partial fill upon patient request if the prescription is for a schedule II opioid drug., 165, cm... Start Date: 07/16/21 Status: Ordered Brovana 15 mcg/2 mL inhalation solution 1 each, Neb, 2 times a day, not to exceed 2 doses/day do not swallow, # 60 each, 1 Refills, Maintenance, 04/24/20 16:53:00 EDT, Solution, [facility]/pharmacy #2024, ICD Code J44.9, 165, cm, 03/12/20 8:39:00EDT, Height, 70.7, kg, 03/08/20 16:16:00 EDT, Dry... Start Date: 04/24/20 Status: Ordered budesonide 0.25 mg/2 mL inhalation suspension 0.25 mg, 2, mL, Neb, 2 times a day, for COPD J44.9. rinse mouth after use, # 120 mL, Refills 6, Tot. Refills 6, Maintenance, 03/06/20 11:34:00 EDT, Suspension, Route to Pharmacy Electronically, [id number], [facility]/pharmacy #2024,... Start Date: 03/06/20 Status: Ordered calcium-vitamin D 600 mg-400 intl units oral tablet See Instructions, 1 tablet By Mouth twice daily, # 60 tablet, 11 Refills, Maintenance, 10/28/21 10:33:00 EST, Tablet, [facility]/pharmacy #2024, 1 tablet By Mouth twice daily, 165, cm, 10/25/21 17:56:00 EST, Height, 54.5, kg, 10/25/21 17:05:00 EST, Dry Weight Start Date: 10/28/21 Status: Ordered Citrate of Magnesia 8.85% oral liquid See Instructions, 30 mL By Mouth Once daily as needed for constipation, # 300 mL, 1 Refills, Soft Stop, 10/02/21 17:13:00 EST, Liquid, [facility]/pharmacy #2024, Partial fill upon patient request if the prescription is for a schedule II opioid drug., 30 mL B... Start Date: 10/02/21 Status: Ordered cyclobenzaprine 10 mg oral tablet 1, tablet, By Mouth, Daily, PRN, # 30 tablet, Refills 11, Tot. Refills 11, Physician Stop 12/02/22 16:09:00 EST, NEEDED FOR PAIN, 12/02/21 16:09:00 EST, Route to Pharmacy Electronically, [facility]/pharmacy #2024, 165, cm, 10/25/21 17:56:00 EST, Height, 5... Start Date: 12/02/21 Stop Date: 12/02/22 Status: Ordered docusate sodium 100 mg oral capsule 2 capsule, By Mouth, 2 times a day, PRN NEEDED FOR CONSTIPATION FOR, # 120 capsule, 5 Refills, Maintenance, 12/30/21 10:25:00 EDT, [facility]/pharmacy #202, 165, cm, 12/23/21 9:22:00 EST, Height, 54.5, kg, 10/25/21 17:05:00 EST, Dry Weight Start Date: 12/30/21 Stop Date: 06/28/22 Status: Ordered duloxetine 20 mg oral enteric coated capsule 1 capsule = 20 mg, By Mouth, 2 times a day, # 60 each, 11 Refills, Maintenance, 07/16/21 15:55:00 EDT, Capsule, [facility]/pharmacy #202, Partial fill upon patient request if the prescription is for a schedule II opioid drug., 165, cm, 06/05/21 10:01:00 EDT... Start Date: 07/16/21 Status: Ordered gabapentin 400 mg oral capsule 1, capsule, By Mouth, 3 times a day, # 90 each, Refills 11, Tot. Refills 11, Maintenance, 09/09/21 11:35:00 EST, Route to Pharmacy Electronically, [facility]/pharmacy #202, dose increase, refill when needed, 165, cm, 09/09/21 11:19:00 EST, Height, 61.4, kg,... Start Date: 09/09/21 Status: Ordered Linzess 145 mcg oral capsule 1 capsule = 145 mcg, By Mouth, Daily, # 30 capsule, 3 Refills, Maintenance, 02/05/22 18:12:00 EDT, Capsule, [facility]/pharmacy #2025, Partial fill upon patient request if the prescription is for a scheduleII opioid drug., 165, cm, 01/23/22 11:55:00 EDT, He... Start Date: 02/05/22 Status: Ordered methadone 10 mg oral tablet See Instructions, PRN for pain, 2 tablets By Mouth in the morning, 1 tablet in the afternoon, and 3tablets by mouth in the evening 28 day schedule, # 168 each, 0 Refills, Acute 01/29/23 13:52:00 EDT, 01/29/22 13:52:00 EDT, Tablet, [facility]/pharmacy #20... Start Date: 01/29/22 Stop Date: 01/29/23 Status: Ordered oxyCODONE 10 mg oral tablet 2 tablet = 20 mg, By Mouth, Every 4 hours, PRN as needed for pain, 28 day prescription patient may fill for less than quantity prescribed, # 224 tablet, 0 Refills, Acute 01/29/23 13:53:00 EDT, 01/29/22 13:53:00 EDT, Tablet, [facility]/pharmacy #2025, refill... Start Date: 01/29/22 Stop Date: 01/29/23 Status: Ordered pantoprazole 40 mg oral delayed release tablet 1 tablet, By Mouth, Daily, PRN NEEDED FOR STOMACH PAIN, # 90 tablet, 3 Refills, 165, cm, 06/05/21 10:01:00 EDT, Height, 61.4, kg, 03/15/21 10:38:00 EDT, Dry Weight Start Date: 08/16/21 Status: Ordered predniSONE 1 mg oral tablet See Instructions, 5 tablets By Mouth Daily, taper as directed, # 150 each, 5 Refills, Maintenance, 01/22/22 11:23:00 EDT, [facility], Partial fill upon patient request if the prescription is for a schedule II opioid drug., 165, cm, 12/23/21 9:... Start Date: 01/22/22 Status: Ordered Prolia 60 mg/mL subcutaneous solution 1 mL = 60 mg, Subcutaneous Injection, Every 6 months, # 1 mL, 0 Refills, Maintenance, 06/05/21 10:28:00 EDT, Solution, Partial fill upon patient request if the prescription is for a schedule II opioid drug. Start Date: 06/05/21 Status: Ordered Testosterone Cypionate 200 mg/mL intramuscular solution See Instructions, 1 mL Intramuscular Every week, 0 Refills, Maintenance, 06/05/21 10:28:00 EDT, Partial fill upon patient request if the prescription is for a schedule II opioid drug. Start Date: 06/05/21 Status: Ordered Ventolin HFA 108 mcg/inh inhalation [...] 2 Refills, Maintenance, 08/12/21 16:05:00 EDT, [facility], ICD 10 J44.9, PLEASE BILL THROUGH MED B [id number], 165, cm, 06/05/21 10:01:00 EDT, Height, 61.4, kg, 03/15/... Start Date: 08/12/21 Status: Ordered ZyrTEC 10 mg oral tablet 1 tablet = 10 mg, By Mouth, Daily, PRN Sinus Symptoms, # 30 tablet, 11 Refills, Maintenance, 01/20/22 15:23:00 EDT, Tablet, [facility], 165, cm, 12/23/21 9:22:00 EST, Height, 54.5, [...]
--- OUTSIDE RECORDS SUMMARY | 2024-05-04 13:18 | XMS_ITS | Continuity of Care Document ---
Author Organization [facility] Address [address] [address]- Care Team Providers Care Wallpaper Printer Name Role Phone Renzo GRAHAM, Declan Hou Primary Care Physician [phone] Encounter [facility] Date(s): 07/15/19 - 11/12/19 [facility] [address] [address]- [facility] Attending Physician: Jose Omer MD Admitting Physician: Jose Omer MD Allergies, Adverse Reactions, Alerts Substance Reaction [...] 12 08/19/08 Given 1Result Comment: DONE AT [facility] 2Result Comment: [06/22/2018] [facility] 5Admin Note: done @ clinic 6Admin Note: given w/out incident/VIS given 7Result Comment: [id number], [id number] [facility] 9Result Comment: [07/21/2014] given w/out incident 10Admin Note: CDC INFO GIVEN TO PATIENT 11Result Comment: lot #[id number] 12Admin Note: [facility] albuterol 0.083% inhalation solution 3 mL = 2.5 mg, Inhalation, Every 6 hours, PRN for wheezing, # 360 mL, 8 Refills, Maintenance, 07/07/19 14:14:00 EDT, Solution, ICD 10 J44.9, PLEASE BILL THROUGH MED B [id number] Start Date: 07/07/19 Status: Ordered Align 4 mg oral capsule 1 capsule = 4 mg, By Mouth, Daily, # 28 capsule, 11 Refills, Maintenance, 10/14/19 11:20:00 EST, Capsule, [facility], 165, cm, 10/14/19 10:56:00 EST, Height, 53.6, kg, 10/14/19 10:56:00 EST, Dry Weight Start Date: 10/14/19 Status: Ordered Ativan 1 mg oral tablet 1 tablet = 1 mg, By Mouth, 3 times a day, PRN for anxiety, # 84 each, 0 Refills, Acute 11/09/20 9:40:00 EST, 11/09/19 9:40:00 EST, Tablet, [facility], 165, cm, 11/04/19 8:13:00 EST, Height, 53.6, kg, 10/14/19 10:56:00 EST, Dry Weight Start Date: 11/09/19 Stop Date: 11/09/20 Status: Ordered bedside commode bedside commode, See Instructions, # 1 each, Refills 0, Tot. Refills 0, Maintenance, use as directed in home diagnosis: severe copd with urge incontinence length of need: lifetime, 07/29/18 14:44:08 EDT, Compound Start Date: 07/29/18 Status: Ordered Brovana 15 mcg/2 mL inhalation solution 1 each, Neb, 2 times a day, # 60 each, 0 Refills, Maintenance, 07/15/19 8:36:02 EDT, Solution Start Date: 07/15/19 Status: Ordered budesonide 0.25 mg/2 mL inhalation suspension 0.25 mg, 2, mL, Neb, 2 times a day, for COPD. rinse mouth after use, # 120 mL, Refills 6, Tot. Refills 6, Maintenance, 06/21/19 19:25:03 EDT, Suspension, Route to Pharmacy Electronically, [id number], [facility]/pharmacy #2024 Start Date: 06/21/19 Status: Ordered calcium-vitamin D 600 mg-400 intl units oral tablet See Instructions, 1 tablet By Mouth twice daily, # 60 tablet, 11 Refills, Maintenance, 04/27/19 12:39:00 EDT, Tablet, 1 tablet By Mouth twice daily Start Date: 04/27/19 Status: Ordered cyclobenzaprine 10 mg oral tablet 10 mg, 1, tablet, By Mouth, Daily, PRN, # 30 each, Refills 5, Tot. Refills 5, Acute 10/26/20 12:28:00 EST, Pain , Severe, 10/26/19 12:28:00 EST, Route to Pharmacy Electronically, [facility]/pharmacy #2024, 165, cm, 10/14/19 10:56:00 EST, Height, 53.6, kg, 12... Start Date: 10/26/19 Stop Date: 10/26/20 Status: Ordered DilTIAZem Hydrochloride CD 180 mg/24 hours oral capsule, extended release 1 capsule = 180 mg, By Mouth, Daily, # 30 capsule, 11 Refills, Maintenance, 06/30/19 10:07:46 EDT, CR Capsule Start Date: 06/30/19 Status: Ordered docusate sodium 100 mg oral capsule 200 mg, 2, capsule, By Mouth, 2 times a day, PRN, # 120 capsule, Refills 11, Tot. Refills 11, Maintenance, for constipation, 09/12/19 14:25:32 EST, Route to Pharmacy Electronically, [id number], [facility]/pharmacy #2024 Start Date: 09/12/19 Stop Date: 09/06/20 Status: Ordered Durable Medical Equipment See Instructions, Maintenance, CPAP supplies all masks, tubing, filters, head gear, chin strap, water chamber, heated tubing, related supplies and accessories [id number] G47.33 G47.39 G47.33 G47.36DME Neftali Gibbs 02/21/18, 03/12/18 11:2... Start Date: 03/12/18 Status: Ordered gabapentin 400 mg oral capsule 400 mg, 1, capsule, By Mouth, 2 times a day, # 60 each, Refills 11, Tot. Refills 11, Maintenance, 01/14/19 14:50:28 EDT, Route to Pharmacy Electronically, [id number], [facility]/pharmacy #2024 Start Date: 01/14/19 Status: Ordered methadone 10 mg oral tablet See Instructions, PRN for pain, 2 tablets By Mouth in the morning, 1 tablet in the afternoon, and 3tablets by mouth in the evening 28 day schedule, # 168 each, 0 Refills, Acute 11/09/20 9:42:00 EST,11/09/19 9:41:00 EST, Tablet, [facility]/pharmacy #2024... Start Date: 11/09/19 Stop Date: 11/09/20 Status: Ordered naproxen 500 mg oral tablet 1 tablet = 500 mg, By Mouth, 2 times a day, # 60 tablet, 11 Refills, Acute 03/10/20 11:04:00 EDT, 03/10/19 11:04:26 EDT, Tablet Start Date: 03/10/19 Stop Date: 03/10/20 Status: Ordered oxyCODONE 10 mg oral tablet 2 tablet = 20 mg, By Mouth, Every 4 hours, PRN as needed for pain, 28 day prescription patient may fill for less than quantity prescribed, # 224 tablet, 0 Refills, Acute 11/09/20 9:41:00 EST, 11/09/19 9:41:00 EST, Tablet, [facility]/pharmacy #2024, 165, cm,... Start Date: 11/09/19 Stop Date: 11/09/20 Status: Ordered pantoprazole 40 mg oral delayed release tablet 1 tablet = 40 mg, By Mouth, Daily, PRN stomach pain, # 30 tablet, 11 Refills, Maintenance, 10/14/1911:22:00 EST, EC Tablet, 165, cm, 10/14/19 10:56:00 EST, Height, 53.6, kg, 10/14/19 10:56:00 EST, Dry Weight Start Date: 10/14/19 Status: Ordered predniSONE 10 mg oral tablet See Instructions, 1-2 tablets By Mouth Daily as directed, # 60 each, 5 Refills, Acute 10/05/20 17:40:00 EST, 10/05/19 17:39:00 EST, Tablet, [facility]/pharmacy #2024, 159, cm, 09/27/19 7:38:00 EST, Height, 48.2, kg, 09/24/19 18:32:00 EST, Dry Weight Start Date: 10/05/19 Stop Date: 10/05/20 Status: Ordered predniSONE 5 mg oral tablet 1 tablet = 5 mg, By Mouth, Daily, take 1 tablet daily 08/08-08/10, # 3 tablet, 0 Refills, Maintenance, 10/08/19 9:48:00 EST, Tablet, 159, cm, 09/27/19 7:38:10 EST, Height, 48.2, kg, 09/24/19 18:32:11EST, Dry Weight Start Date: 10/08/19 Stop Date: 10/11/19 Status: Ordered replacement nebulizer machine replacement nebulizer machine, See Instructions, # 1 each, Refills 0, Tot. Refills 0, Maintenance, use as directed at home four times a day diagnosis: severe copd with bronchospasm length of need: lifetime, 11/11/19 12:34:00 EST, Compound Start Date: 11/11/19 Status: Ordered roflumilast 250 mcg oral tablet 1 tablet = 250 mcg, By Mouth, Daily, # 90 tablet, 3 Refills, Maintenance, 05/24/19 16:46:00 EDT Start Date: 05/24/19 Status: Ordered Senna 8.6 mg oral tablet 8.6 mg, 1, tablet, By Mouth, Daily, # 30 tablet, Refills 11, Tot. Refills 11, Maintenance, 08/11/1912:15:33 EDT, Route to Pharmacy Electronically, [id number], [facility]/pharmacy #2024 Tablet Start Date: 08/11/19 Status: Ordered Ventolin HFA 108 mcg/inh inhalation aerosol with adapter 2 puffs, Inhalation, 4 times a day, PRN for wheezing, # 18 Gm, 11 Refills, Maintenance, 03/17/18 10:52:59 EDT, Aerosol Start Date: 03/17/18 Status: Ordered Yupelri 175 mcg/3 mL inhalation solution = 175 mcg, Inhalation, Daily, # 90 mL, 7 Refills, Maintenance, 07/07/19 14:14:00 EDT, ICD 10 J44.9,PLEASE BILL THROUGH MED B [id number] Start Date: 07/07/19 Status: Ordered ZyrTEC 10 mg oral tablet [...] colon(Confirmed) Active Complex sleep apnea syndrome(Confirmed) Active Umbilical herniorrhaphy(Confirmed) Active Social History Social History Type Response Smoking Status Former smoker, quit more than 30 days ago; Other: quit 20 years ago; entered on: 09/24/19 Sex
--- OUTSIDE RECORDS SUMMARY | 2024-05-04 13:18 | XMS_ITS | Continuity of Care Document ---
Author Organization [facility] Address [address] [place] [address]- Care Team Providers Care Rotoprinter Name Role Phone Renzo GRAHAM, Declan Hou Primary Care Physician Encounter [facility] Date(s): 04/23/20 - 05/23/20 [facility] [address] [place] [address]- [facility] Allergies, Adverse Reactions, Alerts Substance Reaction Severity [...] Note: given w/out incident/VIS given 7Result Comment: [id number], [id number] [facility] 9Result Comment: [07/21/2014] given w/out incident 10Admin Note: [facility] INFO GIVEN TO PATIENT 11Result Comment: lot #[id number] 12Admin Note: [facility] albuterol 0.083% inhalation solution 3 mL = 2.5 mg, Inhalation, Every 6 hours, PRN for wheezing, # 360 mL, 8 Refills, Maintenance, 07/07/19 14:14:00 EDT, Solution, ICD 10 J44.9, PLEASE BILL THROUGH MED B [id number] Start Date: 07/07/19 Status: Ordered alendronate 70 mg oral tablet 1 tablet = 70 mg, By Mouth, Every week, # 4 tablet, 0 Refills, Maintenance, 04/02/20 11:08:00 EDT, Tablet Start Date: 04/02/20 Status: Ordered Ativan 1 mg oral tablet 1 tablet = 1 mg, By Mouth, 3 times a day, PRN for anxiety, # 84 each, 0 Refills, Acute 06/18/20 17:00:00 EDT, 05/21/20 10:23:00 EDT, Tablet, [facility], 165, cm, 05/17/20 16:00:00 EDT, Height, 67, kg, 05/01/20 10:40:00 EDT, Dry Weight Start Date: 05/21/20 Stop Date: 06/18/20 Status: Ordered Brovana 15 mcg/2 mL inhalation solution 1 each, Neb, 2 times a day, # 60 each, 0 Refills, Maintenance, 07/15/19 8:36:02 EDT, Solution Start Date: 07/15/19 Status: Ordered Brovana 15 mcg/2 mL inhalation [...] 11:34:00 EDT, Suspension, Route to Pharmacy Electronically, [id number], [facility]/pharmacy #2024,... Start Date: 03/06/20 Status: Ordered calcium-vitamin D 600 mg-400 intl units oral tablet See Instructions, 1 tablet By Mouth twice daily, # 60 tablet, 11 Refills, Maintenance, 04/27/19 12:39:00 EDT, Tablet, 1 tablet By Mouth twice daily Start Date: 04/27/19 Status: Ordered docusate sodium 100 mg oral capsule See Instructions, PRN, 3 capsule By Mouth 2 times a day 30 days, # 180 each, Refills 11, Tot. Refills 11, Maintenance, for constipation, 03/02/20 17:08:00 EDT, Instructions Replace Required Details, Route to Pharmacy Electronically, [facility]/pharmacy #2024... Start Date: 03/02/20 Status: Ordered duloxetine 20 mg oral enteric coated capsule 1 capsule = 20 mg, By Mouth, Daily, 0 Refills, Maintenance, 04/02/20 9:18:00 EDT Start Date: 04/02/20 Status: Ordered gabapentin 400 mg oral capsule 400 mg, 1, capsule, By Mouth, 2 times a day, # 60 each, Refills 11, Tot. Refills 11, Maintenance, 02/22/20 10:31:00 EDT, Route to Pharmacy Electronically, [facility]/pharmacy #2024, 165, cm, 01/27/20 8:11:00 EDT, Height, 53.6, kg, 10/14/19 10:56:00 EST, Dry... Start Date: 02/22/20 Status: Ordered lactulose 10 gm/15 ml oral syrup 30 mL = 20 Gm, By Mouth, Daily, PRN as needed for constipation, for 30 days, # 1,000 mL, 2 Refills,Acute 08/15/20 16:25:00 EDT, 05/17/20 16:25:00 EDT, Syrup, [facility]/pharmacy #2024, 30 mL By Mouth Daily,x30 days,PRN:as needed for constipation, 165, cm, 0... Start Date: 05/17/20 Stop Date: 08/15/20 Status: Ordered methadone 10 mg oral tablet See Instructions, PRN for pain, 2 tablets By Mouth in the morning, 1 tablet in the afternoon, and 3tablets by mouth in the evening 28 day schedule, # 168 each, 0 Refills, Acute 06/18/20 17:00:00 EDT, 05/21/20 10:23:00 EDT, Tablet, [facility]/pharmacy #20... Start Date: 05/21/20 Stop Date: 06/18/20 Status: Ordered oxyCODONE 10 mg oral tablet 2 tablet = 20 mg, By Mouth, Every 4 hours, PRN as needed for pain, 28 day prescription patient may fill for less than quantity prescribed, # 224 tablet, 0 Refills, Acute 06/18/20 17:00:00 EDT, 05/21/20 10:23:00 EDT, Tablet, [facility]/pharmacy #5, 165, c... Start Date: 05/21/20 Stop Date: 06/18/20 Status: Ordered pantoprazole 40 mg oral delayed release tablet 1 tablet = 40 mg, By Mouth, Daily, PRN stomach pain, # 30 tablet, 11 Refills, Maintenance, 10/14/1911:22:00 EST, EC Tablet, 165, cm, 10/14/19 10:56:00 EST, Height, 53.6, kg, 10/14/19 10:56:00 EST, Dry Weight Start Date: 10/14/19 Status: Ordered predniSONE 10 mg oral tablet 1 OR 2 TABLETS, By Mouth, Daily, DIRECTED., # 60 tablet, 11 Refills, Acute, 05/22/20 11:58:00 EDT, [facility], 165, cm, 05/17/20 16:00:00 EDT, Height, 67, kg, 05/01/20 10:40:00 EDT, Dry Weight Start Date: 05/22/20 Status: Ordered Readi-Cat 2 oral suspension See Instructions, As per recommendations of radiology 1 the evening before when the morning of procedure, # 2 pack/packet, 0 Refills, Maintenance, 05/17/20 16:25:00 EDT, [facility]/pharmacy #202, As per recommendations of radiology 1 the evening before when... Start Date: 05/17/20 Status: Ordered roflumilast 250 mcg oral tablet 1 tablet = 250 mcg, By Mouth, Daily, # 90 tablet, 3 Refills, Maintenance, 05/24/19 16:46:00 EDT Start Date: 05/24/19 Status: Ordered Senna 8.6 mg oral tablet 8.6 mg, 1, tablet, By Mouth, Daily, # 30 tablet, Refills 11, Tot. Refills 11, Maintenance, 03/02/2017:09:00 EDT, Route to Pharmacy Electronically, [facility]/pharmacy #2024 Tablet, 165, cm, 01/27/20 8:11:00 EDT, Height, 53.6, kg, 10/14/19 10:56:00 EST, Dry... Start Date: 03/02/20 Status: Ordered triamcinolone 0.1% topical cream 1 application, Topically, 3 times a day, PRN psoriasis rash, # 60 Gm, 5 Refills, Acute 01/01/21 10:47:00 EDT, 01/02/20 10:46:00 EDT, Cream, [facility]/pharmacy #2024, 1 application Topically 3 times a day,PRN:psoriasis rash, 165, cm, 11/17/19 10:08:00 EST, H... Start Date: 01/02/20 Stop Date: 01/01/21 Status: Ordered Ventolin HFA 108 mcg/inh inhalation aerosol with adapter 2 puffs, Inhalation, 4 times a day, PRN for wheezing, # 18 Gm, 11 Refills, Maintenance, 01/13/20 11:40:00 EDT, Aerosol, [facility]/pharmacy #2024, 165, cm, 11/17/19 10:08:00 EST, Height, 53.6, kg, 10/14/19 10:56:00 EST, Dry Weight Start Date: 01/13/20 Status: Ordered Yupelri 175 mcg/3 mL inhalation solution = 175 mcg, Inhalation, Daily, j44.9, # 360 mL, 6 Refills, Maintenance, 03/06/20 11:37:00 EDT, [facility]/pharmacy #2024, ICD 10 J44.9, PLEASE BILL THROUGH MED B [id number], 165, cm, 01/27/20 8:11:00 EDT, Height, 53.6, kg, 10/14/19 10:56:00 EST, Dry Weight Start Date: 03/06/20 Status: Ordered Zithromax 250 mg oral tablet See Instructions, 1 tablet By Mouth Daily on thursday, thursday, and thursday, 0 Refills, Maintenance,04/02/20 11:08:00 EDT, Tablet Start Date: 04/02/20 Status: Ordered ZyrTEC 10 mg oral tablet [...]
--- OUTSIDE RECORDS SUMMARY | 2024-05-04 13:18 | XMS_ITS | Continuity of Care Document ---
Author Organization [facility] Address [address] [place] [address]- Care Team Providers Care Order Builder Name Role Phone Declan Muller MD Primary Care Physician Encounter [facility] Date(s): 10/15/20 - 10/22/20 [facility] [address] [place] [address]- Encounter Diagnosis Chronic obstructive lung disease(Discharge Diagnosis) - 10/15/20 Immunodeficiency disorder, hypogammaglobulinemia(Discharge Diagnosis) - 10/15/20 Hand paresthesia(Discharge Diagnosis) - 10/15/20 Attending Physician: Declan Muller MD Allergies, Adverse [...] influenza virus vaccine, inactivated 7 12/02/09 Gi sfeerino pneumococcal 13-valent vaccine 8 09/06/15 Recorded tetanus-diphtheria toxoids (Td) 9 07/21/14 Given FluLaval (oldterm) 10 08/08/10 Given pneumococcal 23-valent vaccine 12/02/09 Given pneumococcal 23-valent vaccine 11 12/02/09 Given Influenza Vaccine (oldterm) 12 08/19/08 Given 1Result Comment: DONE AT [facility] 2Result Comment: [06/22/2018] given at [facility] 5Admin Note: done @ clinic 6Admin Note: given w/out incident/VIS given 7Result Comment: [id number], [id number] 8[facility] 9Result Comment: [07/21/2014] given w/out incident 10Admin Note: [facility] INFO GIVEN TO PATIENT 11Result Comment: lot #[id number] 12Admin Note: [facility] albuterol 0.083% inhalation solution 3 mL = 2.5 mg, Inhalation, Every 6 hours, PRN for wheezing, # 360 mL, 8 Refills, Maintenance, 07/07/19 14:14:00 EDT, Solution, ICD 10 J44.9, PLEASE BILL THROUGH MED B [id number] Start Date: 07/07/19 Status: Ordered alendronate 70 mg oral tablet 1 tablet = 70 mg, By Mouth, Every week, # 4 tablet, 0 Refills, Maintenance, 04/02/20 11:08:00 EDT, Tablet Start Date: 04/02/20 Status: Ordered Ativan 1 mg oral tablet 1 tablet = 1 mg, By Mouth, 3 times a day, PRN for anxiety, # 84 each, 0 Refills, Acute 10/06/21 17:00:00 EST, 10/08/20 8:27:00 EST, Tablet, [facility], 165, cm, 05/17/20 16:00:00 EDT, Height,66.5, kg, 09/21/20 8:46:00 EST, Dry Weight Start Date: 10/08/20 Stop Date: 10/06/21 Status: Ordered Brovana 15 mcg/2 mL inhalation [...] 11:34:00 EDT, Suspension, Route to Pharmacy Electronically, [id number], [facility]/pharmacy #2024,... Start Date: 03/06/20 Status: Ordered calcium-vitamin D 600 mg-400 intl units oral tablet See Instructions, 1 tablet By Mouth twice daily, # 60 tablet, 11 Refills, Maintenance, 07/04/20 15:50:00 EDT, Tablet, [facility]/pharmacy #2024, 1 tablet By Mouth twice [...] Mouth, Daily, PRN, # 30 tablet, Refills 5, Tot. Refills 0, Acute, NEEDED FOR PAIN,10/10/20 16:50:00 EST, Route to Pharmacy Electronically, [facility], 165, cm, 05/17/20 16:00:00 EDT, Height, 66.5, kg, 09/21/20 8:46:00 EST, Dry W... Start Date: 10/10/20 Status: Ordered docusate sodium 100 mg oral capsule See Instructions, PRN, 3 capsule By Mouth 2 times a day 30 days, # 180 each, Refills 11, Tot. Refills 11, Maintenance, for constipation, 03/02/20 17:08:00 EDT, Instructions Replace Required Details, Route to Pharmacy Electronically, [facility]/pharmacy #2025... Start Date: 03/02/20 Status: Ordered duloxetine 20 mg oral enteric coated capsule 1 capsule = 20 mg, By Mouth, Daily, 0 Refills, Maintenance, 04/02/20 9:18:00 EDT Start Date: 04/02/20 Status: Ordered gabapentin 400 mg oral capsule 400 mg, 1, capsule, By Mouth, 2 times a day, # 60 each, Refills 11, Tot. Refills 11, Maintenance, 02/22/20 10:31:00 EDT, Route to Pharmacy Electronically, [facility]/pharmacy #2024, 165, cm, 01/27/20 8:11:00 EDT, Height, 53.6, kg, 10/14/19 10:56:00 EST, Dry... Start Date: 02/22/20 Status: Ordered losartan 50 mg oral tablet 50 mg, 1, tablet, By Mouth, Daily, # 30 tablet, Refills 6, Tot. Refills 6, Maintenance, 10/05/20 10:44:00 EST, Route to Pharmacy Electronically, [facility]/pharmacy #202, Partial fill upon patient request if the prescription is for a schedule II opioid drug... Start Date: 10/05/20 Stop Date: 05/03/21 Status: Ordered methadone 10 mg oral tablet See Instructions, PRN for pain, 2 tablets By Mouth in the morning, 1 tablet in the afternoon, and 3tablets by mouth in the evening 28 day schedule, # 168 each, 0 Refills, Acute 10/06/21 17:00:00 EST, 10/08/20 8:27:00 EST, Tablet, [facility]/pharmacy #202... Start Date: 10/08/20 Stop Date: 10/06/21 Status: Ordered naproxen 500 mg oral tablet 1 tablet = 500 mg, By Mouth, 2 times a day, PRN joint or muscle pain, # 60 tablet, 11 Refills, Acute 06/11/21 11:08:00 EDT, 06/11/20 11:08:00 EDT, Tablet, [facility], 165, cm, 05/17/20 16:00:00 EDT, Height, 67, kg, 05/01/20 10:40:00 EDT, Dry W... Start Date: 06/11/20 Stop Date: 06/11/21 Status: Ordered oxyCODONE 10 mg oral tablet 2 tablet = 20 mg, By Mouth, Every 4 hours, PRN as needed for pain, 28 day prescription patient may fill for less than quantity prescribed, # 224 tablet, 0 Refills, Acute 11/06/20 17:00:00 EST, 10/08/20 8:27:00 EST, Tablet, [facility], 165, cm... Start Date: 10/08/20 Stop Date: 11/06/20 Status: Ordered pantoprazole 40 mg oral delayed release tablet 1 tablet = 40 mg, By Mouth, Daily, PRN stomach pain, # 30 tablet, 2 Refills, Maintenance, 08/21/20 7:47:00 EST, EC Tablet, 165, cm, 05/17/20 16:00:00 EDT, Height, 64.8, kg, 07/30/20 7:58:00 EDT, Dry Weight Start Date: 08/21/20 Status: Ordered predniSONE 10 mg oral tablet 1 OR 2 TABLETS, By Mouth, Daily, DIRECTED., # 60 tablet, 11 Refills, Acute, 05/22/20 11:58:00 EDT, [facility], 165, cm, 05/17/20 16:00:00 EDT, Height, 67, kg, 05/01/20 10:40:00 EDT, Dry Weight Start Date: 05/22/20 Status: Ordered Readi-Cat 2 oral suspension See Instructions, As per recommendations of radiology 1 the evening before when the morning of procedure, # 2 pack/packet, 0 Refills, Maintenance, 05/17/20 16:25:00 EDT, [facility], As per recommendations of radiology 1 the evening before when... Start Date: 05/17/20 Status: Ordered roflumilast 250 mcg oral tablet 1 tablet = 250 mcg, By Mouth, Daily, # 90 tablet, 3 Refills, Maintenance, 07/04/20 15:51:00 EDT, [facility], 165, cm, 05/17/20 16:00:00 EDT, Height, 67, kg, 05/01/20 10:40:00 EDT, Dry Weight Start Date: 07/04/20 Status: Ordered Senna 8.6 mg oral tablet 8.6 mg, 1, tablet, By Mouth, Daily, # 30 tablet, Refills 11, Tot. Refills 11, Maintenance, 03/02/2017:09:00 EDT, Route to Pharmacy Electronically, [facility]/pharmacy #2024 Tablet, 165, cm, 01/27/20 8:11:00 EDT, Height, 53.6, kg, 10/14/19 10:56:00 EST, Dry... Start Date: 03/02/20 Status: Ordered triamcinolone 0.1% topical cream 1 application, Topically, 3 times a day, PRN psoriasis rash, # 60 Gm, 5 Refills, Acute 01/01/21 10:47:00 EDT, 01/02/20 10:46:00 EDT, Cream, [facility]/pharmacy #2024, 1 application Topically 3 times a day,PRN:psoriasis rash, 165, cm, 11/17/19 10:08:00 EST, H... Start Date: 01/02/20 Stop Date: 01/01/21 Status: Ordered Ventolin HFA 108 mcg/inh inhalation aerosol with adapter 2 puffs, Inhalation, 4 times a day, PRN for wheezing, # 18 Gm, 11 Refills, Maintenance, 01/13/20 11:40:00 EDT, Aerosol, [facility]/pharmacy #2024, 165, cm, 11/17/19 10:08:00 EST, Height, 53.6, kg, 10/14/19 10:56:00 EST, Dry Weight Start Date: 01/13/20 Status: Ordered Yupelri 175 mcg/3 mL inhalation solution = 175 mcg, Inhalation, Daily, j44.9, # 360 mL, 6 Refills, Maintenance, 03/06/20 11:37:00 EDT, [facility]/pharmacy #2024, ICD 10 J44.9, PLEASE BILL THROUGH MED B [id number], 165, cm, 01/27/20 8:11:00 EDT, Height, 53.6, kg, 10/14/19 10:56:00 EST, Dry Weight Start Date: 03/06/20 Status: Ordered Zithromax 250 mg oral tablet See Instructions, 1 tablet By Mouth Daily on thursday, thursday, and thursday, # 12 tablet, 11 Refills, Maintenance, 07/11/20 12:50:00 EDT, Tablet, [facility], 165, cm, 05/17/20 16:00:00 EDT, Height, 67, kg, 05/01/20 10:40:00 EDT, Dry Weight Start Date: 07/11/20 Status: Ordered ZyrTEC 10 mg oral tablet [...] Active Fatty liver(Confirmed) Active Umbilical herniorrhaphy(Confirmed) Active Diagnosis Diagnosis Type Effective Dates Health Status Clinical Service Informant Chronic obstructive lung disease Discharge Diagnosis 10/15/20 Immunodeficiency disorder, hypogammaglobulinemia Discharge Diagnosis 10/15/20 Hand paresthesia Discharge Diagnosis 10/15/20 Social History Social History Type Response Smoking Status Former smoker, quit more than 30 days ago; Other: quit 20 years ago; entered on: 09/24/19 Sex
--- OUTSIDE RECORDS SUMMARY | 2024-05-04 13:18 | XMS_ITS | Continuity of Care Document ---
Author Organization [facility] Address [address] [facility], [facility] [address] [place] [address]- Care Team Providers Care Retail Agent Name Role Phone Declan Muller MD Primary Care Physician Encounter 05/23/20 - 05/30/20 [facility] [address], [address] [address]- [phone] Attending Physician: Lacho Jarvis NP Admitting Physician: Lacho Jarvis NP Referring Physician: Lacho Jarvis NP Allergies, Adverse Reactions, Alerts Substance Reaction Severity [...] 12 08/19/08 Given 1Result Comment: DONE AT [facility] 2Result Comment: [06/22/2018] given at [facility] 5Admin Note: done @ clinic 6Admin Note: given w/out incident/VIS given 7Result Comment: [id number], [id number] 8[facility] 9Result Comment: [07/21/2014] given w/out incident 10Admin Note: [facility] INFO GIVEN TO PATIENT 11Result Comment: lot #[id number] 12Admin Note: [facility] albuterol 0.083% inhalation solution 3 mL = 2.5 mg, Inhalation, Every 6 hours, PRN for wheezing, # 360 mL, 8 Refills, Maintenance, 07/07/19 14:14:00 EDT, Solution, ICD 10 J44.9, PLEASE BILL THROUGH MED B [id number] Start Date: 07/07/19 Status: Ordered alendronate 70 [...] 11:34:00 EDT, Suspension, Route to Pharmacy Electronically, [id number], [facility]/pharmacy #2025,... Start Date: 03/06/20 Status: Ordered calcium-vitamin D [...] Replace Required Details, Route to Pharmacy Electronically, [facility]/pharmacy #5... Start Date: 03/02/20 Status: Ordered duloxetine 20 mg oral enteric coated capsule 1 capsule = 20 mg, By Mouth, Daily, 0 Refills, Maintenance, 04/02/20 9:18:00 EDT Start Date: 04/02/20 Status: Ordered gabapentin 400 mg oral capsule 400 mg, 1, capsule, By Mouth, 2 times a day, # 60 each, Refills 11, Tot. Refills 11, Maintenance, 02/22/20 10:31:00 EDT, Route to Pharmacy Electronically, [facility]/pharmacy #2024, 165, cm, 01/27/20 8:11:00 EDT, Height, 53.6, kg, 10/14/19 10:56:00 EST, Dry... Start Date: 02/22/20 Status: Ordered lactulose 10 gm/15 ml oral syrup 30 mL = 20 Gm, By Mouth, Daily, PRN as needed for constipation, for 30 days, # 1,000 mL, 2 Refills,Acute 08/15/20 16:25:00 EDT, 05/17/20 16:25:00 EDT, Syrup, [facility]/pharmacy #2025, 30 mL By Mouth Daily,x30 days,PRN:as needed [...] 06/18/20 17:00:00 EDT, 05/21/20 10:23:00 EDT, Tablet, [facility]/pharmacy #20... Start Date: 05/21/20 Stop Date: 06/18/20 Status: Ordered oxyCODONE 10 mg oral tablet 2 tablet = 20 mg, By Mouth, Every 4 hours, PRN as needed for pain, 28 day prescription patient may fill for less than quantity prescribed, # 224 tablet, 0 Refills, Acute 06/18/20 17:00:00 EDT, 05/21/20 10:23:00 EDT, Tablet, [facility]/pharmacy #2025, 165, c... Start Date: 05/21/20 Stop Date: [...] Refills, Acute, 05/22/20 11:58:00 EDT, [id number], 165, cm, 05/17/20 16:00:00 EDT, Height, 67, kg, 05/01/20 10:40:00 EDT, Dry Weight Start Date: 05/22/20 Status: Ordered Readi-Cat 2 oral suspension See Instructions, As per recommendations of radiology 1 the evening before when the morning of procedure, # 2 pack/packet, 0 Refills, Maintenance, 05/17/20 16:25:00 EDT, [facility]/pharmacy #202, As per recommendations of radiology 1 [...] Maintenance, 03/02/2017:09:00 EDT, Route to Pharmacy Electronically, [facility]/pharmacy #2024 Tablet, 165, cm, 01/27/20 8:11:00 EDT, Height, 53.6, kg, 10/14/19 10:56:00 EST, Dry... Start Date: 03/02/20 Status: Ordered triamcinolone 0.1% topical cream 1 application, Topically, 3 times a day, PRN psoriasis rash, # 60 Gm, 5 Refills, Acute 01/01/21 10:47:00 EDT, 01/02/20 10:46:00 EDT, Cream, [facility]/pharmacy #2024, 1 application Topically 3 times a day,PRN:psoriasis rash, 165, cm, 11/17/19 10:08:00 EST, H... Start Date: 01/02/20 Stop Date: 01/01/21 Status: Ordered Ventolin HFA 108 mcg/inh inhalation aerosol with adapter 2 puffs, Inhalation, 4 times a day, PRN for wheezing, # 18 Gm, 11 Refills, Maintenance, 01/13/20 11:40:00 EDT, Aerosol, [facility]/pharmacy #202, 165, cm, 11/17/19 10:08:00 EST, Height, 53.6, kg, 10/14/19 10:56:00 EST, Dry Weight Start Date: 01/13/20 Status: Ordered Yupelri 175 mcg/3 mL inhalation solution = 175 mcg, Inhalation, Daily, j44.9, # 360 mL, 6 Refills, Maintenance, 03/06/20 11:37:00 EDT, [facility]/pharmacy #2025, ICD 10 J44.9, PLEASE BILL THROUGH MED B [id number], 165, cm, 01/27/20 8:11:00 EDT, Height, 53.6, [...]
--- OUTSIDE RECORDS SUMMARY | 2024-05-04 13:18 | XMS_ITS | Continuity of Care Document ---
Author Organization [facility] Address [address] [place] [address]- Care Team Providers Care Babbitt Spinner Name Role Phone Declan Muller MD Primary Care Physician Encounter [facility] Date(s): 03/28/20 - 04/27/20 [facility] [place] [address] [place] [address]- [facility] Attending Physician: Kaleb De Leon Admitting Physician: Kaleb De Leon Referring Physician: AdmtrKaleb Allergies, Adverse Reactions, Alerts Substance Reaction Severity [...] Note: given w/out incident/VIS given 7Result Comment: [id number], [id number] [facility] 9Result Comment: [07/21/2014] given w/out incident 10Admin Note: [facility] INFO GIVEN TO PATIENT 11Result Comment: lot #[id number] 12Admin Note: [facility] albuterol 0.083% inhalation solution 3 mL = 2.5 mg, Inhalation, Every 6 hours, PRN for wheezing, # 360 mL, 8 Refills, Maintenance, 07/07/19 14:14:00 EDT, Solution, ICD 10 J44.9, PLEASE BILL THROUGH MED B [id number] Start Date: 07/07/19 Status: Ordered alendronate 70 mg oral tablet 1 tablet = 70 mg, By Mouth, Every week, # 4 tablet, 0 Refills, Maintenance, 04/02/20 11:08:00 EDT, Tablet Start Date: 04/02/20 Status: Ordered Ativan 1 mg oral tablet 1 tablet = 1 mg, By Mouth, 3 times a day, PRN for anxiety, # 84 each, 0 Refills, Acute 05/22/20 17:00:00 EDT, 04/23/20 9:58:00 EDT, [facility], [facility], 165, cm, 03/12/20 8:39:00 EDT, Height, 70.7, kg, 03/08/20 16:16:00 EDT, Dry Weight Start Date: 04/23/20 Stop Date: 05/22/20 Status: Ordered Brovana 15 mcg/2 mL inhalation [...] 11:34:00 EDT, Suspension, Route to Pharmacy Electronically, [id number], [facility]/pharmacy #2024,... Start Date: 03/06/20 Status: Ordered calcium-vitamin [...] each, Refills 5, Tot. Refills 5, Acute 05/22/20 17:00:00 EDT, Pain , Severe, 04/23/20 15:59:00 EDT, Route to Pharmacy Electronically, [facility]/pharmacy #2024, 165, cm, 03/12/20 8:39:00 EDT, Height, 70.7, kg, ... Start Date: 04/23/20 Stop Date: 05/22/20 Status: Ordered DilTIAZem Hydrochloride CD 180 mg/24 [...] Replace Required Details, Route to Pharmacy Electronically, [facility]/pharmacy #2024... Start Date: 03/02/20 Status: Ordered duloxetine 20 mg oral enteric coated capsule 1 capsule = 20 mg, By Mouth, Daily, 0 Refills, Maintenance, 04/02/20 9:18:00 EDT Start Date: 04/02/20 Status: Ordered gabapentin 400 mg oral capsule 400 mg, 1, capsule, By Mouth, 2 times a day, # 60 each, Refills 11, Tot. Refills 11, Maintenance, 02/22/20 10:31:00 EDT, Route to Pharmacy Electronically, [facility]/pharmacy #2025, 165, cm, 01/27/20 8:11:00 EDT, Height, 53.6, kg, 10/14/19 10:56:00 EST, Dry... Start Date: 02/22/20 Status: Ordered methadone 10 mg oral tablet See Instructions, PRN for pain, 2 tablets By Mouth in the morning, 1 tablet in the afternoon, and 3tablets by mouth in the evening 28 day schedule, # 168 each, 0 Refills, Acute 05/22/20 17:00:00 EDT, 04/23/20 9:58:00 EDT, Tablet, [facility]/pharmacy #202... Start Date: 04/23/20 Stop Date: 05/22/20 Status: Ordered oxyCODONE 10 mg oral tablet 2 tablet = 20 mg, By Mouth, Every 4 hours, PRN as needed for pain, 28 day prescription patient may fill for less than quantity prescribed, # 224 tablet, 0 Refills, Acute 05/22/20 17:00:00 EDT, 04/23/20 9:58:00 EDT, Tablet, [facility]/pharmacy #2025, 165, cm... Start Date: 04/23/20 Stop Date: 05/22/20 Status: Ordered pantoprazole 40 mg oral delayed release tablet 1 tablet = 40 mg, By Mouth, Daily, PRN stomach pain, # 30 tablet, 11 Refills, Maintenance, 10/14/1911:22:00 EST, EC Tablet, 165, cm, 10/14/19 10:56:00 EST, Height, 53.6, kg, 10/14/19 10:56:00 EST, Dry Weight Start Date: 10/14/19 Status: Ordered predniSONE 10 mg oral tablet See Instructions, one half or 1 tablet By Mouth Daily as directed with food, # 30 each, 11 Refills,Maintenance, 04/02/20 11:09:00 EDT, Tablet, [facility]/pharmacy #2025, 165, cm, 03/12/20 8:39:00 EDT, Height, 70.7, kg, 03/08/20 16:16:00 EDT, Dry Weight Start Date: 04/02/20 Status: Ordered roflumilast 250 mcg oral tablet 1 tablet = 250 mcg, By Mouth, Daily, # 90 tablet, 3 Refills, Maintenance, 05/24/19 16:46:00 EDT Start Date: 05/24/19 Status: Ordered Senna 8.6 mg oral tablet 8.6 mg, 1, tablet, By Mouth, Daily, # 30 tablet, Refills 11, Tot. Refills 11, Maintenance, 03/02/2017:09:00 EDT, Route to Pharmacy Electronically, [facility]/pharmacy #2024 Tablet, 165, cm, 01/27/20 8:11:00 EDT, Height, 53.6, kg, 10/14/19 10:56:00 EST, Dry... Start Date: 03/02/20 Status: Ordered triamcinolone 0.1% topical cream 1 application, Topically, 3 times a day, PRN psoriasis rash, # 60 Gm, 5 Refills, Acute 01/01/21 10:47:00 EDT, 01/02/20 10:46:00 EDT, Cream, [facility]/pharmacy #2024, 1 application Topically 3 times a day,PRN:psoriasis rash, 165, cm, 11/17/19 10:08:00 EST, H... Start Date: 01/02/20 Stop Date: 01/01/21 Status: Ordered Ventolin HFA 108 mcg/inh inhalation aerosol with adapter 2 puffs, Inhalation, 4 times a day, PRN for wheezing, # 18 Gm, 11 Refills, Maintenance, 01/13/20 11:40:00 EDT, Aerosol, [facility]/pharmacy #2025, 165, cm, 11/17/19 10:08:00 EST, Height, 53.6, kg, 10/14/19 10:56:00 EST, Dry Weight Start Date: 01/13/20 Status: Ordered Yupelri 175 mcg/3 mL inhalation solution = 175 mcg, Inhalation, Daily, j44.9, # 360 mL, 6 Refills, Maintenance, 03/06/20 11:37:00 EDT, [facility], ICD 10 J44.9, PLEASE BILL THROUGH MED B [id number], 165, cm, 01/27/20 8:11:00 EDT, Height, 53.6, [...]
--- OUTSIDE RECORDS SUMMARY | 2024-05-04 13:18 | XMS_ITS | Continuity of Care Document ---
Author Organization [facility] Address [address] [place] [address]- Care Team Providers Care Book Repairer Name Role Phone Renzo GRAHAM, Declan Hou Primary Care Physician Encounter [facility] Date(s): 09/24/23 - 10/24/23 [facility] [address] [place], [place] [address] Allergies, Adverse Reactions, Alerts Substance Reaction Severity Status Augmentin gi upset Active Levaquin tendon pains Active Bactrim DS lightheaded and loopy Acti ve Immunizations Given and Recorded Vaccine Date Status Refusal Reason zoster vaccine, inactivated 09/17/22 Recorded zoster vaccine, inactivated 06/18/22 Recorded influenza virus vaccine, inactivated 1 08/19/22 Gi seferino influenza virus vaccine, inactivated 09/21/21 Dawit rded influenza virus vaccine, inactivated 2 06/20/18 Re corded influenza virus vaccine, inactivated 3 07/17/16 Re corded influenza virus vaccine, inactivated 4 08/04/15 Re corded influenza virus vaccine, inactivated 5 07/13/14 Gi seferino influenza virus vaccine, inactivated 6 07/03/11 Gi seferino influenza virus vaccine, inactivated 7 12/02/09 Gi seferino tetanus/diphtheria/pertussis, acel(Tdap) 06/18/22 Recorded SARS-CoV-2 (COVID-19) mRNA BNT-162b2 vac 03/28/21 Recorded SARS-CoV-2 (COVID-19) mRNA BNT-162b2 vac 03/02/21 Recorded Influenza Virus Vaccine (oldterm) 8 06/19/19 Recor ded pneumococcal 13-valent vaccine 9 09/06/15 Recorded tetanus-diphtheria toxoids (Td) 10 07/21/14 Given FluLaval (oldterm) 11 08/08/10 Given pneumococcal 23-valent vaccine 12/02/09 Given pneumococcal 23-valent vaccine 12 12/02/09 Given Influenza Vaccine (oldterm) 13 08/19/08 Given 1Result Comment: [facility] [id number] 2Result Comment: [06/22/2018] given at [facility] 3Location History: [facility] 4Location History: [facility] 5Admin Note: done @ clinic 6Admin Note: given w/out incident/VIS given 7Result Comment: [id number], [id number] 8Result Comment: DONE AT [facility] 10Result Comment: [07/21/2014] given w/out incident 11Admin Note: [facility] INFO GIVEN TO PATIENT 12Result Comment: lot #[id number] 13Admin Note: [facility] albuterol 0.083% inhalation solution 3 mL = 2.5 mg, Inhalation, Every 6 hours, PRN for wheezing, # 360 mL, 8 Refills, Maintenance, 07/07/19 14:14:00 EDT, Solution, ICD 10 J44.9, PLEASE BILL THROUGH MED B [id number] Start Date: 07/07/19 Status: Ordered albuterol 90 mcg/inh inhalation aerosol 0 Refills, Maintenance Start Date: 04/30/20 Status: Ordered Ativan 1 mg oral tablet 1 tablet = 1 mg, By Mouth, 3 times a day, PRN for anxiety, # 84 each, 0 Refills, Acute 09/24/24 14:07:00 EST, 09/24/23 14:07:00 EST, [facility], [facility], 165, cm, 09/04/23 8:51:00 EST, Height,52.7, kg, 09/04/23 8:51:00 EST, Dry Weight Start Date: 09/24/23 Stop Date: 09/24/24 Status: Ordered Brovana 15 mcg/2 mL inhalation [...] 11:34:00 EDT, Suspension, Route to Pharmacy Electronically, [id number], [facility]/pharmacy #2024,... Start Date: 03/06/20 Status: Ordered calcium-vitamin D 600 mg-400 intl units oral tablet 1 tablet, By Mouth, 2 times a day, # 180 tablet, 1 Refills, Maintenance, 10/07/22 11:54:00 EST, [id number], [facility], TAKE 1 TABLET BY MOUTH TWICE A DAY, 165, cm, 08/26/22 11:06:00 EST, Height, 64.7, kg, 10/03/22 8:14:00 EST, Dry Weight Start Date: 10/07/22 Status: Ordered cyclobenzaprine 10 mg oral tablet 1/2 OR 1 TABLET, By Mouth, 2 times a day, PRN, # 60 tablet, Refills 5, Tot. Refills 5, Maintenance, NEEDED FOR MUSCLE PAIN OR SPASM, 09/24/23 14:08:00 EST, Route to Pharmacy Electronically, [facility]/pharmacy #2024, 165, cm, 09/04/23 8:51:00 EST, Height,... Start Date: 09/24/23 Status: Ordered Daliresp By Mouth, Daily, 0 Refills, Maintenance, 03/06/22 12:15:00 EDT, Partial fill upon patient request if the prescription is for a schedule II opioid drug. Start Date: 03/06/22 Status: Ordered diclofenac sodium 75 mg oral delayed release tablet 1 tablet = 75 mg, By Mouth, 2 times a day, PRN rib or arm pain, with food, # 60 tablet, 11 Refills,Maintenance, 09/30/23 11:27:00 EST, EC Tablet, [facility]/pharmacy #2025, Partial fill upon patient request if the prescription is for a schedule II opioid dr... Start Date: 09/30/23 Status: Ordered Digox 250 mcg (0.25 mg) oral tablet 1 tablet = 250 mcg, By Mouth, Daily, 0 Refills, Maintenance, 12/26/22 8:21:00 EST, Partial fill upon patient request if the prescription is for a schedule II opioid drug. Start Date: 12/26/22 Status: Ordered docusate sodium 100 mg oral capsule 2 capsule, By Mouth, 2 times a day, PRN NEEDED FOR CONSTIPATION FOR, # 120 capsule, 11 Refills, Maintenance, 03/03/23 10:03:00 EDT, [facility]/pharmacy #2025, 165, cm, 01/21/23 10:40:00 EDT, Height, 55.8, kg, 01/23/23 8:24:00 EDT, Dry Weight Start Date: 03/03/23 Stop Date: 02/26/24 Status: Ordered duloxetine 30 mg oral enteric coated capsule 1 capsule = 30 mg, By Mouth, Daily, # 30 capsule, 11 Refills, Maintenance, 09/14/23 16:34:00 EST, Capsule, [facility]/pharmacy #202, Partial fill upon patient request if the prescription is for a schedule II opioid drug., 165, cm, 09/04/23 8:51:00 EST, .. Start Date: 09/14/23 Status: Ordered gabapentin 400 mg oral capsule 1, capsule, By Mouth, 3 times a day, # 90 capsule, Refills 11, Maintenance, 10/07/22 13:28:00 EST, Route to Pharmacy Electronically, [facility], 165, cm, 08/26/22 11:06:00 EST, Height, 64.7, kg,10/03/22 8:14:00 EST, Dry Weight Start Date: 10/07/22 Status: Ordered Lasix 40 mg oral tablet 40 mg, 1, tablet, By Mouth, Daily, # 30 tablet, Refills 0, Maintenance, 12/26/22 9:14:00 EST, Partial fill upon patient request if the prescription is for a schedule II opioid drug. Start Date: 12/26/22 Status: Ordered Linzess 145 mcg oral capsule 1 capsule, By Mouth, Daily, # 90 capsule, 3 Refills, Maintenance, 10/15/22 9:58:00 EST, [facility], 165, cm, 10/09/22 11:32:00 EST, Height, 64.7, kg, 10/03/22 8:14:00 EST, Dry Weight Start Date: 10/15/22 Status: Ordered lisinopril 5 mg oral tablet 10 mg, 2, tablet, By Mouth, Daily, # 30 tablet, Refills 0, Maintenance, 12/26/22 9:14:00 EST, Partial fill upon patient request if the prescription is for a schedule II opioid drug. Start Date: 12/26/22 Status: Ordered methadone 10 mg oral tablet See Instructions, PRN for pain, 2 tablets By Mouth in the morning, 1 tablet in the afternoon, and 3tablets by mouth in the evening 28 day schedule, # 168 each, 0 Refills, Acute 09/24/24 14:08:00 EST, 09/24/23 14:07:00 EST, Tablet, [facility]/pharmacy #20... Start Date: 09/24/23 Stop Date: 09/24/24 Status: Ordered nystatin 202403 u/ml oral suspension 5 mL, By Mouth, 4 times a day, # 480 mL, 1 Refills, Physician Stop 09/30/24 11:03:00 EST, 09/30/23 11:02:00 EST, [facility] 165, cm, 09/30/23 10:35:00 EST, Height, 55, kg, 09/30/23 10:35:00 EST, Dry Weight Start Date: 09/30/23 Stop Date: 09/30/24 Status: Ordered ondansetron 4 mg oral tablet, disintegrating 1 tablet = 4 mg, By Mouth, Every 6 hours, PRN Nausea & Vomiting, # 20 each, 1 Refills, Acute 12/12/23 16:51:00 EST, 12/12/22 16:50:00 EST, Tablet, [facility], Partial fill upon patient request if the prescription is for a schedule II opioid drLester Start Date: 12/12/22 Stop Date: 12/12/23 Status: Ordered pantoprazole 40 mg oral delayed release tablet 1 tablet, By Mouth, Daily, PRN NEEDED FOR STOMACH PAIN, # 90 tablet, 3 Refills, 08/13/23 10:05:00 EDT, 165, cm, 04/17/23 11:00:00 EDT, Height, 54.7, kg, 08/07/23 8:22:00 EDT, Dry Weight Start Date: 08/13/23 Status: Ordered Probiotic Formula (Bacillus Coagulans) oral capsule 1 capsule, By Mouth, Daily, # 30 capsule, 11 Refills, Maintenance, 11/13/22 14:34:00 EST, Capsule, [facility], Partial fill upon patient request if the prescription is for a schedule II opioid drug., 1 capsule By Mouth Daily, 165, cm, 10/09/22... Start Date: 11/13/22 Status: Ordered testosterone 2% transdermal cream 0 Refills, Maintenance, 03/06/22 11:53:00 EDT, Partial fill upon patient request if the prescription is for a schedule II opioid drug. Start Date: 03/06/22 Status: Ordered triamcinolone 0.1% topical cream 1 application, Topically, 3 times a day, PRN skin rash, # 60 Gm, 1 Refills, Acute 09/30/24 11:04:00EST, 09/30/23 11:04:00 EST, Cream, [facility], Partial fill upon patient request if the prescription is for a schedule II opioid drug., 1 appli... Start Date: 09/30/23 Stop Date: 09/30/24 Status: Ordered Ventolin HFA 108 mcg/inh inhalation [...] 10 J44.9, PLEASE BILL THROUGH MED B [id number], 165, cm, 06/05/21 10:01:00 EDT, Height, 61.4, kg, ... Start Date: 08/12/21 Status: Ordered ZyrTEC 10 mg oral tablet 1 tablet = 10 mg, By Mouth, Daily, PRN Sinus Symptoms, # 30 tablet, 11 Refills, Maintenance, 01/21/23 11:04:00 EDT, Tablet, [facility], 165, cm, 01/21/23 10:40:00 EDT, Height, 64.7, kg, 10/03/22 8:14:00 EST, Dry Weight Start Date: 01/21/23 Status: Ordered Problem List Condition Confirmation Course Effective Dates Status Health Status Informant Anxiety disorder Confirmed Active Central sleep apnea Confirmed Active Chest pain Confirmed Active Chronic obstructive lung disease Confirmed Active Immunodeficiency disorder, hypogammaglobulinemia Confirmed Active Lumbar compression fracture Confirmed Active CHF with cardiomyopathy Confirmed Active Functional bowel disorder Confirmed Active GERD - Gastro-esophageal reflux disease Confirmed Active Hyperglycemia Confirmed Active Hypertension Confirmed Active Lumbar radiculopathy Confirmed Active ALOK (obstructive sleep apnea) Confirmed Active Polyp of colon Confirmed Active Chronic prescription opiate use Confirmed Active Complex sleep apnea syndrome Confirmed Active Fatty liver Confirmed Active Umbilical herniorrhaphy Confirmed Active Social History Social History Type Response Smoking Status Former smoker, quit more than 30 days ago; Other: quit 20 years ago; entered on: 09/24/19 Sex Patient Care team information Care Team Personnel Name: Jonathan , Joelle Position: [facility] Onco RN Member Role: Primary Care Nurse Name: Shawnee Schafer RN Position: [facility] SN RN Member Role: Primary Care Nurse Name: Declan Muller MD Position: [facility] Physician - Primary Care Member Role: PCP Address: Address: [address] [place] [address] [facility] [place], [place] [address] Name: Aylin Byrne RN Position: [facility] RN Member Role: Primary Care Nurse Name: Edilma Metzger RN Position: [facility] RN Member Role: Primary Care Nurse Name: Katherine Bond RN Position: [facility] SN RN Member Role: Primary Care Nurse Name: Gena Chavez RN Position: [facility] tractor operator helper Member Role: Manager Work Name: Kerry Negron RN Position: [facility] RN Member Role: Primary Care Nurse Name: Joslyn Dodge RN Position: [facility] SN RN Member Role: Primary Care Nurse Name: Missy Avilez RN Position: [facility] Onco RN Member Role: Primary Care Nurse Name: Katina Marcus RN Position: [facility] RN Member Role: Primary Care Nurse Name: Sienna Horne RN Position: [facility] RN Member Role: Primary Care Nurse Name: Ernestine Thomas RN Position: [facility] RN Member Role: Primary Care Nurse Care Team Related Persons Name: JANICE TAYLOR Address: [address] [address]
--- OUTSIDE RECORDS SUMMARY | 2024-05-04 13:18 | XMS_ITS | Continuity of Care Document ---
Author Organization [facility] Address [address] [place] [address]- Care Team Providers Care Director Of Strategy & Mobile Name Role Phone Declan Muller MD Primary Care Physician [phone] Encounter [facility] Date(s): 06/05/22 - 02/25/23 [facility] Care [address] [place] [address]- Discharge Disposition: A-D/C Home Attending Physician: Heide GRAHAM(Hem/Onc), Fercho Corral Admitting Physician: Heide GRAHAM(Hem/Onc), Fercho Corral Referring Physician: Declan Muller MD Allergies, Adverse Reactions, [...] Vaccine (oldterm) 13 08/19/08 Given 1Result Comment: [facility] [id number] 2Result Comment: [06/22/2018] given at [facility] 3Location History: [facility] 4Location History: [facility] 5Admin Note: done @ clinic 6Admin Note: given w/out incident/VIS given 7Result Comment: [id number] 8Result Comment: DONE AT [facility] 10Result Comment: [07/21/2014] given w/out incident 11Admin Note: [facility] INFO GIVEN TO PATIENT 12Result Comment: lot #[id number] 13Admin Note: [facility] Medic[facility] acetaminophen 325 mg oral tablet 650 mg, Tablet, By Mouth, 08/08/22 8:00:00 EDT, Stop date 08/08/22 8:00:00 EDT Start Date: 08/08/22 Stop Date: 08/08/22 Status: Completed acetaminophen 325 mg oral tablet 650 mg, Tablet, By Mouth, 10/03/22 8:00:00 EST, Stop date 10/03/22 8:00:00 EST Start Date: 10/03/22 Stop Date: 10/03/22 Status: Completed acetaminophen 325 mg oral tablet 650 mg, Tablet, By Mouth, 07/11/22 8:00:00 EDT, Stop date 07/11/22 8:00:00 EDT Start Date: 07/11/22 Stop Date: 07/11/22 Status: Completed albuterol 0.083% inhalation solution 3 mL = 2.5 mg, Inhalation, Every 6 hours, PRN for wheezing, # 360 mL, 8 Refills, Maintenance, 07/07/19 14:14:00 EDT, Solution, ICD 10 J44.9, PLEASE BILL THROUGH MED B [id number] Start Date: 07/07/19 Status: Ordered albuterol 90 mcg/inh inhalation aerosol 0 Refills, Maintenance Start Date: 04/30/20 Status: Ordered Ativan 1 mg oral tablet 1 tablet = 1 mg, By Mouth, 3 times a day, PRN for anxiety, # 84 each, 0 Refills, Acute 01/20/24 13:02:00 EDT, 01/19/23 13:02:00 EDT, Tablet, [facility]/pharmacy #[id number], 165, cm, 12/16/22 12:53:00 EST, Height, 64.7, kg, 10/03/22 8:14:00 EST, Dry Weight Start Date: 01/19/23 Stop Date: 01/20/24 Status: Ordered Brovana 15 mcg/2 mL inhalation solution 1 each, Neb, 2 times a day, not to exceed 2 doses/day do not swallow, # 60 each, 1 Refills, Maintenance, 04/24/20 16:53:00 EDT, Solution, [facility]/pharmacy #2024, ICD Code J44.9, 165, cm, 03/12/20 8:39:00EDT, Height, 70.7, kg, 03/08/20 16:16:00 EDT, Dry... Start Date: 04/24/20 Status: Ordered budesonide 0.25 mg/2 mL inhalation suspension 0.25 mg, 2, mL, Neb, 2 times a day, for COPD J44.9. rinse mouth after use, # 120 mL, Refills 6, Tot. Refills 6, Maintenance, 03/06/20 11:34:00 EDT, Suspension, Route to Pharmacy Electronically, [id number], [facility]/pharmacy #[id number],... Start Date: 03/06/20 Status: Ordered calcium-vitamin D 600 mg-400 intl units oral tablet 1 tablet, By Mouth, 2 times a day, # 180 tablet, 1 Refills, Maintenance, 10/07/22 11:54:00 EST, [id number], 90, TAKE 1 TABLET BY MOUTH TWICE A DAY, 165, cm, 08/26/22 11:06:00 EST, Height, 64.7, kg, 10/03/22 8:14:00 EST, Dry Weight Start Date: 10/07/22 Status: Ordered cyclobenzaprine 10 mg oral tablet See Instructions, PRN, one half or 1 tablet By Mouth twice daily as needed for muscle pain or spasm, # 60 each, Refills 5, Tot. Refills 5, Physician Stop 01/14/24 13:08:00 EDT, NEEDED FOR PAIN, 01/13/23 13:07:00 EDT, Instructions Replace Required D... Start Date: 01/13/23 Stop Date: 01/14/24 Status: Ordered Daliresp By Mouth, Daily, 0 Refills, Maintenance, 03/06/22 12:15:00 EDT, Partial fill upon patient request if the prescription is for a schedule II opioid drug. Start Date: 03/06/22 Status: Ordered diclofenac sodium 75 mg oral delayed release tablet 1 tablet = 75 mg, By Mouth, 2 times a day, PRN rib or arm pain, with food, # 60 tablet, 11 Refills,Maintenance, 08/19/22 11:00:00 EDT, EC Tablet, [facility]/pharmacy #2025, Partial fill upon patient request if the prescription is for a schedule II opioid dr... Start Date: 08/19/22 Status: Ordered Digox 250 mcg (0.25 mg) [...] FOR, # 120 capsule, 5 Refills, Maintenance, 07/30/22 11:39:00 EDT, [id number], 165, cm, 04/17/22 13:32:00 EDT, Height, 60.6,kg, 04/18/22 8:40:00 EDT, Dry Weight Start Date: 07/30/22 Stop Date: 01/26/23 Status: Ordered duloxetine 30 mg oral enteric coated capsule 1 capsule = 30 mg, By Mouth, Daily, # 30 capsule, 11 Refills, Maintenance, 12/15/22 9:46:00 EST, Capsule, [facility], Partial fill upon patient request if the prescription is for a schedule II opioid drug., 165, cm, 10/09/22 11:32:00 EST, Heig... Start Date: 12/15/22 Status: Ordered gabapentin 400 mg oral capsule 1, capsule, By Mouth, 3 times a day, # 90 capsule, Refills 11, Maintenance, 10/07/22 13:28:00 EST, Route to Pharmacy Electronically, [id number], 165, cm, 08/26/22 11:06:00 EST, Height, 64.7, [...] Refills, Maintenance, 10/15/22 9:58:00 EST, [id number], 165, cm, 10/09/22 11:32:00 EST, Height, 64.7, kg, 10/03/22 8:14:00 EST, Dry Weight Start Date: 10/15/22 Status: Ordered lisinopril 5 mg oral tablet 5 mg, 1, tablet, By Mouth, Daily, # [...] schedule, # 168 each, 0 Refills, Acute 01/20/24 13:03:00 EDT, 01/19/23 13:03:00 EDT, Tablet, [facility]/pharmacy #20... Start Date: 01/19/23 Stop Date: 01/20/24 Status: Ordered nystatin 312511 u/ml oral suspension 5 mL, By Mouth, 4 times a day, # 480 mL, 1 Refills, [facility], 165, cm, 03/28/22 11:14:00 EDT, Height, 60.4, kg, 03/06/22 10:48:00 EDT, Dry Weight Start Date: 04/17/22 Status: Ordered ondansetron 4 mg oral tablet, disintegrating 1 tablet = 4 mg, By Mouth, Every 6 hours, PRN Nausea & Vomiting, # 20 each, 1 Refills, Acute 12/12/23 16:51:00 EST, 12/12/22 16:50:00 EST, Tablet, [facility]/pharmacy #2025, Partial fill upon patient request if the prescription is for a schedule II opioid dr... Start Date: 12/12/22 Stop Date: 12/12/23 Status: Ordered oxyCODONE 10 mg oral tablet 2 tablet = 20 mg, By Mouth, Every 4 hours, PRN as needed for pain, 28 day prescription patient may fill for less than quantity prescribed, # 224 tablet, 0 Refills, Acute 01/20/24 13:03:00 EDT, 01/19/23 13:03:00 EDT, Tablet, [facility]/pharmacy #2025, refill... Start Date: 01/19/23 Stop Date: 01/20/24 Status: Ordered pantoprazole 40 mg oral delayed release tablet 1 tablet, By Mouth, Daily, PRN NEEDED FOR STOMACH PAIN, # 90 tablet, 3 Refills, 165, cm, 06/05/21 10:01:00 EDT, Height, 61.4, kg, 03/15/21 10:38:00 EDT, Dry Weight Start Date: 08/16/21 Status: Ordered Probiotic Formula (Bacillus Coagulans) oral capsule 1 capsule, By Mouth, Daily, # 30 capsule, 11 Refills, Maintenance, 11/13/22 14:34:00 EST, Capsule, [facility]/pharmacy #2025, Partial fill upon patient request if [...] rash, # 60 Gm, 1 Refills, Acute 05/08/23 16:01:00EDT, 05/08/22 16:00:00 EDT, Cream, [facility], Partial fill upon patient request if the prescription is for a schedule II opioid drug., 1 appli... Start Date: 05/08/22 Stop Date: 05/08/23 Status: Ordered Ventolin HFA 108 mcg/inh inhalation aerosol with adapter 2 puffs, Inhalation, 4 times a day, PRN for wheezing, # 18 Gm, 11 Refills, Maintenance, 01/13/20 11:40:00 EDT, Aerosol, [facility], 165, cm, 11/17/19 10:08:00 EST, Height, 53.6, kg, 10/14/19 10:56:00 EST, Dry Weight Start Date: 01/13/20 Status: Ordered Yupelri 175 mcg/3 mL inhalation solution = 175 mcg, Inhalation, Daily, j44.9 please bill through med B, # 90 mL, 2 Refills, Maintenance, 08/12/21 16:05:00 EDT, [facility], ICD 10 J44.9, PLEASE BILL THROUGH MED B [id number], 165, cm, 06/05/21 10:01:00 EDT, Height, 61.4, kg, 03/15/... Start Date: 08/12/21 Status: Ordered ZyrTEC 10 mg oral tablet 1 tablet = 10 mg, By Mouth, Daily, PRN Sinus Symptoms, # 30 tablet, 11 Refills, Maintenance, 01/21/23 11:04:00 EDT, Tablet, [facility]/pharmacy #2024, 165, cm, 01/21/23 10:40:00 EDT, Height, 64.7, [...] liver Confirmed Active Umbilical herniorrhaphy Confirmed Active Vital Signs Most recent to oldest [Reference Range]: 1 2 3 Height 165 cm (08/26/22 11:06 AM) Weight 63.8 kg (08/26/22 11:06 AM) Oxygen Saturation [94-100 %] 99 % (08/26/22 11:06 AM) Pulse Rate [55-90 bpm] 79 bpm (08/26/22 11:06 AM) Body Mass Index [18.5-24.99 kg/m2] 23.43 kg/m2 (08/26/22 11:06 AM) Blood Pressure [90-138/55-84 mm Hg] 129/88mm Hg (08/26/22 11:06 AM) Respiratory Rate [16-30 br/min] 18 br/min (10/03/22 9:26 AM) 19 br/min (08/08/22 9:29 AM) 18 br/min (07/11/22 9:28 AM) Temperature [96.8-100.4 DegF] 96.5 DegF *L* (08/26/22 11:06 AM) Mode of Delivery (Oxygen) Room air (08/26/22 11:06 AM) Blood pressure sites Arm, right (08/26/22 11:06 AM) Temperature Route Temporal (08/26/22 11:06 AM) Dry Weight 64.7 kg (10/03/22 8:14 AM) 63.8 kg (08/26/22 11:06 AM) 64.1 kg (08/08/22 8:22 AM) Weight Obtained Via Standing scale (08/26/22 11:06 AM) Dry Weight Obtained Via Standing scale (08/26/22 11:06 AM) Standing scale (08/08/22 8:22 AM) Social History Social History Type Response Smoking Status Former smoker, quit more than 30 days ago; Other: quit 20 years ago; entered on: 09/24/19 Sex Hospital Progress note * Lucy Nash RN: PERFORM, SIGN, VERIFY Event Display: Progress Note Hospital Authored Date: Patient: KARYN TAYLOR Age: 62 years Sex: Male : 1960 Associated Diagnoses: None Author: Lucy Nash RN Findings Nursing Data IV Lines. : IV Lines. 12/26/2022 10:00 EST Right Forearm 22 gauge Peripheral IV Activity: Discontinue Peripheral IV Assess Compare Touch: A/C/T Done, line D/C'd and or pt discharged Peripheral IV D/C Date/Time: 12/26/2022 10:47 Peripheral IV D/C Reason: Discontinued treatment complete Peripheral IV Post-Removal: Catheter tip intact 12/26/2022 8:00 EST Right Forearm 22 gauge Peripheral IV Activity: Start Peripheral IV Insertion Date/Time: 12/26/2022 8:16 Peripheral IV Number of Attempts: 1 Peripheral IV Site Assessment: Good Blood return . Pre meds given prior to IVIG. infusion tolerated well. no sign adverse reaction. discharged ambulatory with healthcare administrator. end time 1040. * Aylin Byrne RN: SIGN, VERIFY, PERFORM, SIGN, MODIFY Event Display: Progress Note Hospital Authored Date: Patient: KARYN TAYLOR Age: 62 years Sex: Male : 1960 Associated Diagnoses: None Author: Aylin Byrne RN Findings Narrative/Incidental Pt arrived to unit for IVIg. Pt is currently on Cefpodoxime bid. Dr. Jaeger notified and approved to continue with IVIg.. * Aylin Byrne RN: PERFORM Event Display: Progress Note Hospital Authored Date: IVIG ended 1130. Pt c/o of some nauseas and sweats. Infusion stopped for about 20 minutes and symptoms lessened. Pt completed infusion with no further complications or adverse reaction. Pt ambulatoryand off unit. * Joslyn Dodge RN: PERFORM, SIGN, VERIFY Event Display: Progress Note Hospital Authored Date: Patient: KARYN TAYLOR Age: 62 years Sex: Male : 1960 Associated Diagnoses: None Author: Joslyn Dodge RN Findings Evaluation pt ivig complete 1350 pt tolerated ivig no issues vss pt iv dc pt left unit home. Note * Vi Thompson: PERFORM, SIGN, VERIFY Event Display: Patient Education/Instruction Authored Date: [facility] *Heme/Onc Adult Clinical Summary Name KARYN TAYLOR Age 62 Years 1960 PCP Declan Muller MD PCP Visit Date 06/05/2022 09:34:00 Additional Instructions: Scheduled Appointments?? Future Appointments ?*[facility] [address] ?[place],??[place],??[address] ?Phone:??--?Fax:??-- ?Appt. Date:??09/18/2022?11:30 AM ?Scheduled Provider:??Liya GRAHAM, Marge Roberts Follow-Up Instructions ?? With: Address: When: Fercho Jaeger [facility] [address] [place] [address] Business (1) 08/25/2023 10:00 AM Diagnosis Medications: Please continue your medications until treatment is completed or stopped by your provider. Discuss any questions related to medications with your provider. Medications to Continue Taking That Have Changed These medications were not printed or sent to your pharmacy - Gabapentin (gabapentin 400 mg oral capsule) 1 capsule By Mouth 4 times a day. Refills: 11. Next Dose: - linaclotide (Linzess 145 mcg oral capsule) 1 capsule Oral Daily. Refills: 3. Next Dose: - linaclotide (Linzess 290 mcg oral capsule) 1 capsule Oral Daily. Refills: 3. Next Dose: - linaclotide (Linzess 290 mcg oral capsule) 1 capsule Oral Daily. Refills: 3. Next Dose: Medications to Continue with No Changes These medications were not printed or sent to your pharmacy Albuterol (albuterol 0.083% inhalation solution) 3 Milliliter Inhalation every 6 hours as needed for wheezing. Refills: 8. Next Dose: Albuterol (albuterol 90 mcg/inh inhalation aerosol) Next Dose: Albuterol (Ventolin HFA 108 mcg/inh inhalation aerosol with adapter) 2 puff(s) Inhalation 4 times aday as needed for wheezing. Refills: 11. Next Dose: arformoterol (Brovana 15 mcg/2 mL inhalation solution) 1 Each Nebulized inhalation twice a day. notto exceed 2 doses/day do not swallow. Refills: 1. Next Dose: Budesonide (budesonide 0.25 mg/2 mL inhalation suspension) 2 Milliliter Nebulized inhalation twice a day. for COPD J44.9. rinse mouth after use. Refills: 6. Next Dose: Calcium And Vitamin D Combination (calcium-vitamin D 600 mg-400 intl units oral tablet) 1 tablet ByMouth twice daily. Refills: 11. Next Dose: Cetirizine (ZyrTEC 10 mg oral tablet) 1 tab(s) Oral Daily as needed Sinus Symptoms. Refills: 11. Next Dose: Diclofenac (diclofenac sodium 75 mg oral delayed release tablet) 1 tab(s) Oral twice a day as needed rib or arm pain. with food. Refills: 11. Next Dose: Docusate (docusate sodium 100 mg oral capsule) 2 capsule Oral twice a day as needed NEEDED FOR CONSTIPATION FOR for 30 Days. Refills: 5. Next Dose: Duloxetine (duloxetine 30 mg oral enteric coated capsule) 1 capsule Oral Daily. Next Dose: Lorazepam (Ativan 1 mg oral tablet) 1 tab(s) Oral 3 times a day as needed for anxiety. Refills: 0. Next Dose: Methadone (methadone 10 mg oral tablet) 2 tablets By Mouth in the morning, 1 tablet in the afternoon, and 3 tablets by mouth in the evening 28 day schedule; as needed for pain. Refills: 0. Next Dose: Nystatin (nystatin 952403 u/ml oral suspension) 5 Milliliter Oral 4 times a day. Refills: 1. Next Dose: Oxycodone (oxyCODONE 10 mg oral tablet) 2 tab(s) Oral every 4 hours as needed as needed for pain. 28 day prescription patient may fill for less than quantity prescribed. Refills: 0. Next Dose: Pantoprazole (pantoprazole 40 mg oral delayed release tablet) 1 tab(s) Oral Daily as needed NEEDED FOR STOMACH PAIN. Refills: 3. Next Dose: PredniSONE (predniSONE 5 mg oral tablet) Alternating dose of 10mg/5 mg daily. Next Dose: revefenacin (Yupelri 175 mcg/3 mL inhalation solution) 175 Microgram Inhalation Daily. j44.9 please bill through med B. Refills: 2. Next Dose: roflumilast (Daliresp) Oral Daily. Next Dose: Testosterone (testosterone 2% transdermal cream) Next Dose: Triamcinolone Topical (triamcinolone 0.1% topical cream) 1 fransisca Topically 3 times a day as needed skin rash. Refills: 1. Next Dose: No Longer Take the Following Medications Cyclobenzaprine (cyclobenzaprine 10 mg oral tablet) one half or 1 tablet By Mouth twice daily as needed for muscle pain or spasm; as needed NEEDED FOR PAIN. Refills: 11. Allergy Info:?? Bactrim DS; Levaquin; Augmentin Medications Given This Visit Medication Dose Route DiphenhydrAMINE (Benadryl Inj) 25 mg IV Push HydroCORTisone (HydroCORTisone Inj) 100 mg IV Push Slowly Acetaminophen (acetaminophen 325 mg oral tablet) 650 mg By Mouth Famotidine (Famotidine Inj) 20 mg IV Push Slowly Immune Globulin Intravenous (Gammagard 10% Liquid) 30 Gm IVPB HydroCORTisone (HydroCORTisone Inj) 100 mg IV Push Slowly Famotidine (Famotidine Inj) 20 mg IV Push Slowly Acetaminophen (acetaminophen 325 mg oral tablet) 650 mg By Mouth DiphenhydrAMINE (Benadryl Inj) 25 mg IV Push Immune Globulin Intravenous (Gammagard 10% Liquid) 30 Gm IVPB Immune Globulin Intravenous (Gammagard 10% Liquid) 30 Gm IVPB Acetaminophen (acetaminophen 325 mg oral tablet) 650 mg By Mouth DiphenhydrAMINE (Benadryl Inj) 25 mg IV Push Famotidine (Famotidine Inj) 20 mg IV Push Slowly Future Orders ?No future orders Vital Signs Height 165 cm Weight 63.8 kg BMI 23.43 kg/m2 Blood Pressure 129 mm Hg/88 mm Hg Temperature 96.5 DegF Pulse Rate 79 bpm Respiratory Rate 19 br/min 02 Sat Mode of Delivery 99 %/Room air You can now view a summary of your hospital visit from the comfort of your home through a free online portal called [employer]. [employer] is a website that allows you to securely view your medical information including discharge summary, medications and follow-up visits. ??You can alsosend a secure electronic message to your doctor???s office to request appointments, renew medications or just ask a question. You can enroll at [email or web address] or register during your next office visit. Disclaimer:?? The information provided is of a general nature and is intended to be used in conjunction with the recommendations and advice of your health care practitioner. ??Every effort has been made to ensure that the information provided is accurate and complete at the time it is provided to you however, as your needs change, or, as new ??information becomes available, different or additional instructions may be required. If you have questions, please consult with your primary care provider or pharmacist, as appropriate. ??This information is not intended to serve as substitution for assessment and evaluation by a qualified health care provider. If you do not have a primary care provider, you may find a [facility] provider by calling [facility] viseto Link at [phone]. For information about the plan of care including goals and instructions for your diagnosis, please see the patient education orders section of this document. Patient Education Materials?? The content of this educational material or handout may have been modified, supplemented, or adapted from its original content and format to support your individualized medical care. Patient Care team information Care Team Personnel Name: Joelle Castillo Position: [facility] Onco RN Member Role: Primary Care Nurse Name: Marilee Pitts RN Position: [facility] RN Member Role: Primary Care Nurse Name: Shawnee Schafer RN Position: [facility] SN RN Member Role: Primary Care Nurse Name: Declan Muller MD Position: [facility] Primary Care Physician Member Role: PCP Address: Address: [address] [place] [address] Adult [place] [address]- Name: Aylin Byrne RN Position: [facility] RN Member Role: Primary Care Nurse Name: Blaire Wilde RN Position: [facility] RN Chaya Member Role: Primary Care Nurse Name: Edilma Metzger RN Position: [facility] RN Member Role: Primary Care Nurse Name: Katherine Bond RN Position: [facility] SN RN Member Role: Primary Care Nurse Name: Kerry Negron RN Position: [facility] RN Member Role: Primary Care Nurse Name: Missy Avilez RN Position: [facility] Onco RN Member Role: Primary Care Nurse Name: Katina Marcus RN Position: [facility] RN Member Role: Primary Care Nurse Name: Sienna Horne RN Position: [facility] RN Member Role: Primary Care Nurse Name: Ernestine Thomas RN Position: [facility] RN Member Role: Primary Care Nurse Care Team Related Persons Name: JANICE TAYLOR Address: [address] [address]
--- OUTSIDE RECORDS SUMMARY | 2024-05-04 13:18 | XMS_ITS | Continuity of Care Document ---
Author Organization [facility] ter Address [address] [place] [address]- Care Team Providers Care Choirmaster Name Role Phone Renzo GRAHAM, Declan Hou Primary Care Physician Encounter [facility] Date(s): 10/01/23 - 10/31/[address] [address] Allergies, Adverse Reactions, Alerts Substance Reaction Severity [...] Vaccine (oldterm) 13 08/19/08 Given 1Result Comment: [facility] [id number] 2Result Comment: [06/22/2018] given at [facility] 3Location History: [facility] 4Location History: [facility] 5Admin Note: done @ clinic 6Admin Note: given w/out incident/VIS given 7Result Comment: [id number], [id number] 8Result Comment: DONE AT [facility] 10Result Comment: [07/21/2014] given w/out incident 11Admin Note: [facility] INFO GIVEN TO PATIENT 12Result Comment: lot #[id number] 13Admin Note: [facility] albuterol 0.083% inhalation solution 3 mL = 2.5 mg, Inhalation, Every 6 hours, PRN for wheezing, # 360 mL, 8 Refills, Maintenance, 07/07/19 14:14:00 EDT, Solution, ICD 10 J44.9, PLEASE BILL THROUGH MED B [id number] Start Date: 07/07/19 Status: Ordered albuterol 90 [...] 11:34:00 EDT, Suspension, Route to Pharmacy Electronically, [id number], [facility]/pharmacy #202,... Start Date: 03/06/20 Status: Ordered calcium-vitamin D 600 mg-400 intl units oral tablet 1 tablet, By Mouth, 2 times a day, # 180 tablet, 1 Refills, Maintenance, 10/07/22 11:54:00 EST, [id number], 90, TAKE 1 TABLET BY MOUTH TWICE [...] 09/24/23 14:08:00 EST, Route to Pharmacy Electronically, [facility]/pharmacy #2024, 165, cm, 09/04/23 8:51:00 EST, Height,... [...] 11 Refills,Maintenance, 09/30/23 11:27:00 EST, EC Tablet, [facility], Partial fill upon patient request if the prescription is for a schedule II opioid drJina. Start Date: 09/30/23 Status: Ordered Digox 250 [...] capsule, 11 Refills, Maintenance, 03/03/23 10:03:00 EDT, [facility]/pharmacy #2025, 165, cm, 01/21/23 10:40:00 EDT, Height, 55.8, kg, 01/23/23 8:24:00 EDT, Dry Weight Start Date: 03/03/23 Stop Date: 02/26/24 Status: Ordered duloxetine 30 mg oral enteric coated capsule 1 capsule = 30 mg, By Mouth, Daily, # 30 capsule, 11 Refills, Maintenance, 09/14/23 16:34:00 EST, Capsule, [facility]/pharmacy #2025, Partial fill upon patient request if the prescription is for a schedule II opioid drug., 165, cm, 09/04/23 8:51:00 EST, Rony. Start Date: 09/14/23 Status: Ordered gabapentin 400 mg oral capsule 1, capsule, By Mouth, 3 times a day, # 90 capsule, Refills 11, Maintenance, 10/07/22 13:28:00 EST, Route to Pharmacy Electronically, [facility], 165, cm, 08/26/22 11:06:00 EST, Height, 64.7, [...] capsule, 3 Refills, Maintenance, 10/15/22 9:58:00 EST, [facility], 165, cm, 10/09/22 11:32:00 EST, Height, 64.7, [...] 09/24/24 14:08:00 EST, 09/24/23 14:07:00 EST, Tablet, [facility]/pharmacy #20... Start Date: 09/24/23 Stop Date: 09/24/24 Status: Ordered nystatin 084672 u/ml oral suspension 5 mL, By Mouth, [...] prescription is for a schedule II opioid drJina. Start Date: 12/12/22 Stop Date: 12/12/23 Status: [...] Refills, Maintenance, 11/13/22 14:34:00 EST, Capsule, [facility], Partial fill upon patient request [...] 10 J44.9, PLEASE BILL THROUGH MED B [id number], 165, cm, 06/05/21 10:01:00 EDT, Height, 61.4, [...] Confirmed Active Polyp of colon Confirmed Active Complex sleep apnea syndrome Confirmed Active Fatty liver Confirmed Active Umbilical herniorrhaphy Confirmed Active Social History Social History Type Response Smoking Status Former smoker, quit more than 30 days ago; Other: quit 20 years ago; entered on: 09/24/19 Sex Patient Care team information Care Team Personnel Name: Joelle Castillo Position: [facility] Onco RN Member Role: Primary Care Nurse Name: Shawnee Schafer RN Position: [facility] SN RN Member Role: Primary Care Nurse Name: Declan Muller MD Position: [facility] Physician - Primary Care Member Role: PCP Address: Address: [address] [place] [address] Adult & Pediatric Medicine [address] Name: Aylin Byrne RN Position: [facility] RN Member Role: Primary Care Nurse Name: Edilma Metzger RN Position: [facility] RN Member Role: Primary Care Nurse Name: Katherine Bond RN Position: [facility] SN RN Member Role: Primary Care Nurse Name: Gena Chavez RN Position: [facility] inspector elevators Member Role: Concrete Pipe Maker Name: Kerry Negron RN Position: [facility] RN Member Role: Primary Care Nurse Name: Joslyn Dodge RN Position: [facility] SN RN Member Role: Primary Care Nurse Name: Missy Avilez RN Position: [facility] Onco RN Member Role: Primary Care Nurse Name: Katina Marcus RN Position: [facility] RN Member Role: Primary Care Nurse Name: Sienna Horne RN Position: [facility] RN Member Role: Primary Care Nurse Name: Ernestine Thomas RN Position: [facility] RN Member Role: Primary Care Nurse Care Team Related Persons Name: JANICE TAYLOR Address: [address] [address]
--- OUTSIDE RECORDS SUMMARY | 2024-05-04 13:18 | XMS_ITS | Continuity of Care Document ---
Author Organization [facility] Address [address] [place] [address]- Care Team Providers Care Floor Finisher Name Role Phone Declan Muller MD Primary Care Physician [phone] Encounter [facility] Date(s[facility] 01/13/20 - 01/23/20 [facility] [address] [place] [address]- [facility] Attending Physician: Kaleb De Leon [...] Note: given w/out incident/VIS given 7Result Comment: [id number] [facility] 9Result Comment: [07/21/2014] given w/out incident 10Admin Note: [facility] INFO GIVEN TO PATIENT 11Result Comment: lot #[id number] 12Admin Note: [facility] albuterol 0.083% inhalation solution 3 mL = 2.5 mg, Inhalation, Every 6 hours, PRN for wheezing, # 360 mL, 8 Refills, Maintenance, 07/07/19 14:14:00 EDT, Solution, ICD 10 J44.9, PLEASE BILL THROUGH MED B [id number] Start Date: 07/07/19 Status: Ordered Align 4 [...] anxiety, # 84 each, 0 Refills, Acute 01/01/21 10:43:00 EDT, 01/02/20 10:43:00 EDT, Tablet, [facility], 165, cm, 11/17/19 10:08:00 EST, Height, 53.6, kg, 10/14/19 10:56:00 EST, Dry Weight Start Date: 01/02/20 Stop Date: 01/01/21 Status: Ordered bedside commode bedside commode, See [...] 19:25:03 EDT, Suspension, Route to Pharmacy Electronically, [id number], [facility]/pharmacy #2024 Start Date: 06/21/19 Status: Ordered calcium-vitamin [...] 10/26/19 12:28:00 EST, Route to Pharmacy Electronically, [facility]/pharmacy #2024, 165, cm, 10/14/19 10:56:00 EST, Height, [...] 11, Tot. Refills 11, Maintenance, for constipation, 11/16/19 14:23:00 EST, Route to Pharmacy Electronically, [facility]/pharmacy #2024, 165, cm, 11/04/19 8:13:00 EST, Height, 53.6, kg,... Start Date: 11/16/19 Stop Date: 11/10/20 Status: Ordered Durable Medical Equipment See Instructions, Maintenance, CPAP supplies all masks, tubing, filters, head gear, chin strap, water chamber, heated tubing, related supplies and accessories [id number] G47.33 G47.39 G47.33 G47.36DME Neftali Gibbs 02/21/18, 03/12/18 11:2... Start Date: 03/12/18 Status: Ordered gabapentin 400 mg oral capsule 400 mg, 1, capsule, By Mouth, 2 times a day, # 60 each, Refills 11, Tot. Refills 11, Maintenance, 01/14/19 14:50:28 EDT, Route to Pharmacy Electronically, [id number], [facility]/pharmacy #5 Start Date: 01/14/19 Status: Ordered hydrochlorothiazide 25 mg oral tablet 1, tablet, By Mouth, Daily, # 90 tablet, Refills 3, Tot. Refills 0, Maintenance, 11/23/19 12:43:00 EST, Route to Pharmacy Electronically, [facility], 165, cm, 11/17/19 10:08:00 EST, Height, 53.6, kg, 10/14/19 10:56:00 EST, Dry Weight Start Date: 11/23/19 Status: Ordered methadone 10 mg oral tablet See Instructions, PRN for pain, 2 tablets By Mouth in the morning, 1 tablet in the afternoon, and 3tablets by mouth in the evening 28 day schedule, # 168 each, 0 Refills, Acute 01/01/21 10:42:00 EDT, 01/02/20 10:42:00 EDT, Tablet, [facility]/pharmacy #20... Start Date: 01/02/20 Stop Date: 01/01/21 Status: Ordered naproxen 500 mg oral tablet [...] prescribed, # 224 tablet, 0 Refills, Acute 01/30/20 17:00:00 EDT, 01/02/20 10:40:00 EDT, Tablet, [facility]/pharmacy #5, 165, c... Start Date: 01/02/20 Stop Date: 01/30/20 Status: Ordered pantoprazole 40 mg oral delayed [...] 10/05/20 17:40:00 EST, 10/05/19 17:39:00 EST, Tablet, [facility]/pharmacy #5, 159, cm, 09/27/19 7:38:00 EST, Height, 48.2, [...] Maintenance, 08/11/1912:15:33 EDT, Route to Pharmacy Electronically, [id number], [facility]/pharmacy #2024 Tablet Start Date: 08/11/19 Status: Ordered triamcinolone 0.1% topical cream 1 application, Topically, 3 times a day, PRN psoriasis rash, # 60 Gm, 5 Refills, Acute 01/01/21 10:47:00 EDT, 01/02/20 10:46:00 EDT, Cream, [facility]/pharmacy #2024, 1 application Topically 3 times a day,PRN:psoriasis rash, 165, cm, 11/17/19 10:08:00 EST, H... Start Date: 01/02/20 Stop Date: 01/01/21 Status: Ordered Ventolin HFA 108 mcg/inh inhalation aerosol with adapter 2 puffs, Inhalation, 4 times a day, PRN for wheezing, # 18 Gm, 11 Refills, Maintenance, 01/13/20 11:40:00 EDT, Aerosol, [facility]/pharmacy #2024, 165, cm, 11/17/19 10:08:00 EST, Height, 53.6, kg, 10/14/19 10:56:00 EST, Dry Weight Start Date: 01/13/20 Status: Ordered Yupelri 175 mcg/3 mL inhalation solution = 175 mcg, Inhalation, Daily, # 180 mL, 5 Refills, Maintenance, 11/29/19 13:05:00 EST, [facility], ICD 10 J44.9, PLEASE BILL THROUGH MED B [id number], 165, cm, 11/17/19 10:08:00 EST, Height,53.6, kg, 10/14/19 10:56:00 EST, Dry Weight Start Date: 11/29/19 Status: Ordered ZyrTEC 10 mg oral tablet [...] sleep apnea syndrome(Confirmed) Active Umbilical herniorrhaphy(Confirmed) Active Vital Signs Most recent to oldest [Reference Range]: 1 2 3 Height 167.60 cm (02/26/18 8:47 AM) 167.60 cm (06/24/12 9:37 AM) 167.60 cm (03/19/12 9:10 AM) Weight 63.800 kg (03/11/12 1:38 PM) 71.200 kg (07/15/11 4:16 PM) Oxygen Saturation [94-100 %] 90 % *L* (02/26/18 8:47 AM) Pulse Rate [55-90 bpm] 72 bpm (02/26/18 8:47 AM) 85 bpm (06/24/12 9:37 AM) 82 bpm (03/19/12 9:10 AM) Body Mass Index [18.50-24.99] 22.71 (03/11/12 1:38 PM) 25.35 *H* (07/15/11 4:16 PM) Blood Pressure [90-138/55-84 mm Hg] 126/86mm Hg (02/26/18 8:47 AM) 153/95mm Hg *H* (06/24/12 9:37 AM) 152/98mm Hg *H* (03/19/12 9:10 AM) Respiratory Rate [16-30 br/min] 16 br/min (02/26/18 8:47 AM) Temperature [96.8-100.4 DegF] 98.1 DegF (02/26/18 8:47 AM) 98.8 DegF (06/24/12 9:37 AM) 98.2 DegF (03/19/12 9:10 AM) Mode of Delivery (Oxygen) Room air (02/26/18 8:47 AM) Blood pressure sites Arm, right (02/26/18 8:47 AM) Arm, left (06/24/12 9:37 AM) Arm, left (03/19/12 9:10 AM) Temperature Route Oral (02/26/18 8:47 AM) Oral (06/24/12 9:37 AM) Oral (03/19/12 9:10 AM) Dry Weight 63.800 kg (03/11/12 1:38 PM) Weight Obtained Via Standing scale (03/11/12 1:38 PM) Dry Weight Obtained Via Standing scale (03/11/12 1:38 PM) Social History Social History Type Response Smoking Status Former smoker, quit more than 30 days ago; Other: quit 20 years ago; entered on: 09/24/19 Sex
--- OUTSIDE RECORDS SUMMARY | 2024-05-04 13:18 | XMS_ITS | Continuity of Care Document ---
Author Organization [facility] Address [address] [place] [address]- Care Team Providers Care Continuous Still Operator Name Role Phone Declan Muller MD Primary Care Physician [phone] Encounter [facility] Date(s): 12/30/23 - 01/06/24 [facility] [address] [place], [place] [address] Encounter Diagnosis CHF with cardiomyopathy(Discharge Diagnosis) - 12/30/23 Chronic obstructive lung disease(Discharge Diagnosis) - 12/30/23 Immunodeficiency disorder, hypogammaglobulinemia(Discharge Diagnosis) - 12/30/23 Lumbar radiculopathy(Discharge Diagnosis) - 12/30/23 ALOK (obstructive sleep apnea)(Discharge Diagnosis) - 12/30/23 Functional bowel disorder(Discharge Diagnosis) - 12/30/23 GERD - Gastro-esophageal reflux disease(Discharge Diagnosis) - 12/30/23 Hyperglycemia(Discharge Diagnosis) - 12/30/23 Hypertension(Discharge Diagnosis) - 12/30/23 Anxiety disorder(Discharge Diagnosis) - 12/30/23 Attending Physician: Declan Muller MD Allergies, Adverse [...] Vaccine (oldterm) 13 08/19/08 Given 1Result Comment: [facility] [place] [facility] [place] [id number] 2Result Comment: [06/22/2018] given at [facility] 3Location History: [facility] 4Location History: [facility] 5Admin Note: done @ clinic 6Admin Note: given w/out incident/VIS given 7Result Comment: [id number] 8Result Comment: DONE AT [facility] 9Location History: [facility] 10Result Comment: [07/21/2014] given w/out incident 11Admin Note: [facility] [place] INFO GIVEN TO PATIENT 12Result Comment: lot #[id number] 13Admin Note: [facility] albuterol 0.083% inhalation solution 3 mL = 2.5 mg, Inhalation, Every 6 hours, PRN for wheezing, # 360 mL, 8 Refills, Maintenance, 07/07/19 14:14:00 EDT, Solution, ICD 10 J44.9, PLEASE BILL THROUGH MED B [id number] Start Date: 07/07/19 Status: Ordered albuterol 90 mcg/inh inhalation aerosol 0 Refills, Maintenance Start Date: 04/30/20 Status: Ordered Ativan 1 mg oral tablet 1 tablet = 1 mg, By Mouth, 3 times a day, PRN for anxiety, # 84 each, 0 Refills, Acute 09/24/24 14:07:00 EST, 09/24/23 14:07:00 EST, Tablet, [facility]/pharmacy #2024, 165, cm, 09/04/23 8:51:00 EST, Height,52.7, kg, 09/04/23 8:51:00 EST, Dry Weight Start Date: 09/24/23 Stop Date: 09/24/24 Status: Ordered Brovana 15 mcg/2 mL inhalation solution 1 each, Neb, 2 times a day, not to exceed 2 doses/day do not swallow, # 60 each, 1 Refills, Maintenance, 04/24/20 16:53:00 EDT, Solution, [facility]/pharmacy #2024, ICD Code J44.9, 165, cm, 03/12/20 8:39:00EDT, Height, 70.7, kg, 03/08/20 16:16:00 EDT, Dry... Start Date: 04/24/20 Status: Ordered budesonide 0.25 mg/2 mL inhalation suspension 0.25 mg, 2, mL, Neb, 2 times a day, for COPD J44.9. rinse mouth after use, # 120 mL, Refills 6, Tot. Refills 6, Maintenance, 03/06/20 11:34:00 EDT, Suspension, Route to Pharmacy Electronically, [id number], [facility]/pharmacy #2024,... Start Date: 03/06/20 Status: Ordered calcium-vitamin D 600 mg-400 intl units oral tablet 1 tablet, By Mouth, 2 times a day, # 180 tablet, 1 Refills, Maintenance, 10/07/22 11:54:00 EST, [id number], [facility], TAKE 1 TABLET BY MOUTH TWICE A DAY, 165, cm, 08/26/22 11:06:00 EST, Height, 64.7, kg, 10/03/22 8:14:00 EST, Dry Weight Start Date: 10/07/22 Status: Ordered cetirizine 10 mg oral tablet 1 tablet, By Mouth, Daily, PRN NEEDED FOR SINUS SYMPTOMS, # 90 tablet, 1 Refills, Maintenance, 12/09/23 1:28:00 EST, [facility]/pharmacy #2024, 165, cm, 09/30/23 10:35:00 EST, Height, 53.7, kg, 11/27/23 8:47:00 EST, Dry Weight Start Date: 12/09/23 Status: Ordered cyclobenzaprine 10 mg oral tablet 1/2 OR 1 TABLET, By Mouth, 2 times a day, PRN, # 60 tablet, Refills 5, Tot. Refills 5, Maintenance, NEEDED FOR MUSCLE PAIN OR SPASM, 09/24/23 14:08:00 EST, Route to Pharmacy Electronically, [facility]/pharmacy #5, 165, cm, 09/04/23 8:51:00 EST, Height,... Start [...] capsule, 11 Refills, Maintenance, 03/03/23 10:03:00 EDT, [facility], [facility], cm, 01/21/23 10:40:00 EDT, Height, 55.8, kg, 01/23/23 8:24:00 EDT, Dry Weight Start Date: 03/03/23 Stop Date: 02/26/24 Status: Ordered duloxetine 30 mg oral enteric coated capsule 1 capsule = 30 mg, By Mouth, Daily, # 30 capsule, 11 Refills, Maintenance, 09/14/23 16:34:00 EST, Capsule, [facility], Partial fill upon patient request if the prescription is for a schedule II opioid drug., 165, cm, 09/04/23 8:51:00 EST, [place]... Start Date: 09/14/23 Status: Ordered fluocinonide 0.05% topical cream 1 application, Topically, 2 times a day, PRN skin rash, # 60 Gm, 3 Refills, Acute 12/29/24 11:27:00EDT, 12/30/23 11:27:00 EDT, Cream, [facility], Partial fill upon patient request if the prescription is for a schedule II opioid drug., 1 appli... Start Date: 12/30/23 Stop Date: 12/29/24 Status: Ordered lisinopril 40 mg oral tablet 1 tablet = 40 mg, By Mouth, Daily, # 90 tablet, 0 Refills, Maintenance, 12/30/23 11:25:00 EDT, Tablet, Partial fill upon patient request if the prescription is for a schedule II opioid drug. Start Date: 12/30/23 Status: Ordered melatonin 5 mg oral tablet See Instructions, PRN for insomnia, 1-2 tablet By Mouth Daily at bedtime, 0 Refills, Maintenance, 12/30/23 11:30:00 EDT, Tablet, Partial fill upon patient request if the prescription is for a schedule II opioid drug. Start Date: 12/30/23 Status: Ordered methadone 10 mg oral tablet See Instructions, PRN for pain, 1 tablet By Mouth twice daily, # 56 each, 0 Refills, Acute 12/29/2510:22:00 EDT, 12/30/23 11:21:00 EDT, Tablet, refill when due Start Date: 12/30/23 Stop Date: 12/29/24 Status: Ordered metoprolol 100 mg oral tablet, extended release 100 mg, 1, tablet, By Mouth, Daily, # 90 tablet, Refills 0, Maintenance, 12/30/23 11:29:00 EDT, Partial fill upon patient request if the prescription is for a schedule II opioid drug. Start Date: 12/30/23 Status: Ordered nystatin 265699 u/ml oral suspension 5 mL, By Mouth, 4 times a day, # 480 mL, 1 Refills, Physician Stop 09/30/24 11:03:00 EST, 09/30/23 11:02:00 EST, [facility]/pharmacy #202, 165, cm, 09/30/23 10:35:00 EST, Height, 55, kg, 09/30/23 10:35:00 EST, Dry Weight Start Date: 09/30/23 Stop Date: 09/30/24 Status: Ordered ondansetron 4 mg oral tablet, disintegrating 1 tablet = 4 mg, By Mouth, Every 6 hours, PRN Nausea & Vomiting, # 20 each, 1 Refills, Acute 12/28/24 12:00:00 EDT, 12/29/23 12:52:00 EDT, Tablet, [facility], Partial fill upon patient request if the prescription is for a schedule II opioid . Start Date: 12/29/23 Stop Date: 12/28/24 Status: Ordered pantoprazole 40 mg oral delayed release tablet 1 tablet, By Mouth, Daily, PRN NEEDED FOR STOMACH PAIN, # 90 tablet, 3 Refills, 08/13/23 10:05:00 EDT, 165, cm, 04/17/23 11:00:00 EDT, Height, 54.7, kg, 08/07/23 8:22:00 EDT, Dry Weight Start Date: 08/13/23 Status: Ordered testosterone 2% transdermal cream 0 [...] 10 J44.9, PLEASE BILL THROUGH MED B [id number], 165, cm, 06/05/21 10:01:00 EDT, Height, 61.4, kg, 03/15/... Start Date: 08/12/21 Status: Ordered Problem List Condition Confirmation Course [...] liver Confirmed Active Umbilical herniorrhaphy Confirmed Active Diagnosis Diagnosis Type Effective Dates Health Status Clinical Service Informant CHF with cardiomyopathy Discharge Diagnosis 12/30/23 Chronic obstructive lung disease Discharge Diagnosis 12/30/23 Immunodeficiency disorder, hypogammaglobulinemia Discharge Diagnosis 12/30/23 Lumbar radiculopathy Discharge Diagnosis 12/30/23 ALOK (obstructive sleep apnea) Discharge Diagnosis 12/30/23 Functional bowel disorder Discharge Diagnosis 12/30/23 GERD - Gastro-esophageal reflux disease Discharge Diagnosis 12/30/23 Hyperglycemia Discharge Diagnosis 12/30/23 Hypertension Discharge Diagnosis 12/30/23 Anxiety disorder Discharge Diagnosis 12/30/23 Vital Signs Most recent to oldest [Reference Range]: 1 Height 165 cm (12/30/23 11:12 AM) Weight 52.9 kg (12/30/23 11:12 AM) Oxygen Saturation [94-100 %] 96 % (12/30/23 11:12 AM) Pulse Rate [55-90 bpm] 71 bpm (12/30/23 11:12 AM) Body Mass Index [18.5-24.99 kg/m2] 19.43 kg/m2 (12/30/23 11:12 AM) Blood Pressure [90-138/55-84 mm Hg] 104/ 60mm Hg (12/30/23 11:12 AM) Mode of Delivery (Oxygen) Room air (12/30/23 11:12 AM) Blood pressure sites Arm, right (12/30/23 11:12 AM) Dry Weight 52.9 kg (12/30/23 11:12 AM) Weight Obtained Via Standing scale (12/30/23 11:12 AM) Dry Weight Obtained Via Standing scale (12/30/23 11:12 AM) Social History Social History Type Response Smoking Status Former smoker, quit more than 30 days ago; Other: quit 20 years ago; entered on: 09/24/19 Sex Goals Complications of Chronic Pain are Reduced Start Date:12/15/23 End Date: Status:Met Progression:Not Met Patient will increase activi ty as tolerated including participating in physical therapies as needed Start Date:12/15/23 End Date : Status:Done Progression:Not Met Pt will call provider/care m alberto if in yellow zone of COPD Zone hand out. Start Date:10/02/23 End Date: Status:Done Progression:Not Met Encourage Use of Aids, Device for ADL Support St art Date:10/02/23 End Date: Status:Done Progression:Not Met Collaborate w-Pt/CG, Provide rs, Resources to Address Needs Start Date:10/02/23 End Date: Status:Done Progression:Not Met Discuss Treatment Options with Provider Start Da te:10/02/23 End Date: Status:Done Progression:Met Discuss Treatment Options with Provider Start Da te:10/02/23 End Date: Status:Done Progression:Not Met Learn About Condition(s) and How to Avoid Compli cations Start Date:10/02/23 End Date: Status:Done Progression:Not Met Learn About Non-Medication Treatments Start Date :10/02/23 End Date: Status:Done Progression:Not Met Learn When to Call 911 Start Date:10/02/23 End D ate: Status:Done Progression:Met Learn When to Call Provider Start Date:10/02/23 End Date: Status:Done Progression:Met Note * Leatha Velázquez: PERFORM, SIGN, VERIFY Event Display: Patient Education/Instruction Authored Date: [id number] [facility] *[facility] Clinical Summary Name KARYN TAYLOR Age 63 Years 1960 PCP Declan Muller MD PCP Visit Date 12/30/2023 10:32:00 Patient Instructions continue current medication, diet, and low impact activity; cardiology, pulmonary, and g.i. follow up as scheduled; call if any question or problem Additional Instructions: Scheduled Appointments?? Future Appointments ?No Future Appointments Scheduled Follow-Up Instructions ?? Diagnosis Medications: Please continue your medications until treatment is completed or stopped by your provider. Discuss any questions related to medications with your provider. New Medications [facility] [place], [place] [id number], [phone] Fluocinonide Topical (fluocinonide 0.05% topical cream) 1 fransisca Topically twice a day as needed skin rash. Refills: 3. Next Dose: Medications to Continue Taking That Have Changed These medications were not printed or sent to your pharmacy - Lisinopril (lisinopril 40 mg oral tablet) 1 tab(s) Oral Daily. Next Dose: - Methadone (methadone 10 mg oral tablet) 1 tablet By Mouth twice daily; as needed for pain. Refills: 0. Next Dose: Medications to Continue with No [...] 600 mg-400 intl units oral tablet) 1 tab(s) Oral twice a day. Refills: 1. Next Dose: Cetirizine (cetirizine 10 mg oral tablet) 1 tab(s) Oral Daily as needed NEEDED FOR SINUS SYMPTOMS. Refills: 1. Next Dose: Cyclobenzaprine (cyclobenzaprine 10 mg oral tablet) 1/2 OR 1 TABLET Oral twice a day as needed NEEDED FOR MUSCLE PAIN OR SPASM. Refills: 5. Next Dose: Docusate (docusate sodium 100 mg oral capsule) 2 capsule Oral twice a day as needed NEEDED FOR CONSTIPATION FOR for 30 Days. Refills: 11. Next Dose: Duloxetine (duloxetine 30 mg oral enteric coated capsule) 1 capsule Oral Daily. Refills: 11. Next Dose: Lorazepam (Ativan 1 mg oral tablet) 1 tab(s) Oral 3 times a day as needed for anxiety. Refills: 0. Next Dose: Melatonin (melatonin 5 mg oral tablet) 1-2 tablet By Mouth Daily at bedtime; as needed for insomnia. Next Dose: Metoprolol (metoprolol 100 mg oral tablet, extended release) 1 tab(s) Oral Daily. Next Dose: Nystatin (nystatin 158175 u/ml oral suspension) 5 Milliliter Oral 4 times a day. Refills: 1. Next Dose: Ondansetron (ondansetron 4 mg oral tablet, disintegrating) 1 tab(s) Oral every 6 hours as needed Nausea & Vomiting. Refills: 1. Next Dose: Pantoprazole (pantoprazole 40 mg oral delayed release tablet) 1 tab(s) Oral Daily as needed NEEDED FOR STOMACH PAIN. Refills: 3. Next Dose: revefenacin (Ashleypelri 175 mcg/3 mL inhalation solution) 175 Microgram Inhalation Daily. j44.9 please bill through [facility]. Refills: 2. Next Dose: roflumilast (Daliresp) Oral Daily. Next Dose: Testosterone (testosterone 2% transdermal cream) Next Dose: No Longer Take the Following Medications bacillus coagulans-inulin (Probiotic Formula (Bacillus Coagulans) oral capsule) 1 capsule Oral Daily. Refills: 11. Diclofenac (diclofenac sodium 75 mg oral delayed release tablet) 1 tab(s) Oral twice a day as needed rib or arm pain. with food. Refills: 11. Digoxin (Digox 250 mcg (0.25 mg) oral tablet) 1 tab(s) Oral Daily. Furosemide (Lasix 40 mg oral tablet) 1 tab(s) Oral Daily. Gabapentin (gabapentin 400 mg oral capsule) 1 capsule Oral 3 times a day. Refills: 11. linaclotide (Linzess 145 mcg oral capsule) 1 capsule Oral Daily. Refills: 3. Triamcinolone Topical (triamcinolone 0.1% topical cream) 1 fransisca Topically 3 times a day as needed skin rash. Refills: 1. Allergy Info:?? Bactrim DS; Levaquin; Augmentin Medications Given This Visit Future Orders ?No future orders Future Orders ?No future orders Vital Signs Height 165 cm Weight 52.9 kg BMI 19.43 kg/m2 Blood Pressure 104 mm Hg/60 mm Hg Temperature Pulse Rate 71 bpm Respiratory Rate 02 Sat Mode of Delivery 96 %/Room air You can now view a summary of your hospital visit from the comfort of your home through a free online portal called [employer]. [employer] is a website that allows you to securely view your medical information including discharge summary, medications and follow-up visits. ??You can alsosend a secure electronic message to your doctor???s office to request appointments, renew medications or just ask a question. You can enroll at [email or web address] or register during your next office visit. [...] primary care provider, you may find a [facility] provider by calling [facility] Link at [phone]. [facility], in keeping with [facility] guidance, no longer requires face masks for staff, patientsor visitors in most situations. Similar to time spent indoors at other locations, there is the chance that you were exposed to respiratory viruses during your time with us (such as flu or COVID-19).? If you develop symptoms concerning for a viral respiratory infection, please seek testing (and treatment if indicated) from your medical provider or home test kit. For information about the plan of care [...] Care Team Personnel Name: Joelle Castillo Position: [facility] Onco RN Member Role: Primary Care Nurse Name: Shawnee Schafer RN Position: [facility] SN RN Member Role: Primary Care Nurse Name: Declan Muller MD Position: [facility] Physician - Primary Care Member Role: PCP Address: Address: [address] [place] [address] Adult [facility] Pediatric [facility] [address] Name: Aylin Byrne RN Position: [facility] RN Member Role: Primary Care Nurse Name: Edilma Metzger RN Position: [facility] RN Member Role: Primary Care Nurse Name: Katherine Bond RN Position: [facility] SN RN Member Role: Primary Care Nurse Name: Gena Chavez RN Position: [facility] refinery process engineer Member Role: Business Instructor Name: Kerry Negron RN Position: [facility] RN Member Role: Primary Care Nurse Name: Joslyn Dodge RN Position: [facility] SN RN Member Role: Primary Care Nurse Name: Missy Avilez RN Position: [facility] Onco RN Member Role: Primary Care Nurse Name: Katina Marcus RN Position: [facility] RN Member Role: Primary Care Nurse Name: Sienna Horne RN Position: [facility] RN Member Role: Primary Care Nurse Name: Ernestine Thomas RN Position: [facility] RN Member Role: Primary Care Nurse Care Team Related Persons Name: JANICE TAYLOR Address: [address] [address]
--- OUTSIDE RECORDS SUMMARY | 2024-05-04 13:18 | XMS_ITS | Continuity of Care Document ---
Author Organization [facility] Address [address] [place] [address]- Care Team Providers Care Purchasing Manager Name Role Phone Renzo GRAHAM, Declan Hou Primary Care Physician Encounter 03/14/20 - 01/07/21 [facility] [address] [place] [id number]- Discharge Disposition: CLIENT NO LONGER REQUIRES SKILLED CARE Allergies, Adverse Reactions, Alerts Substance Reaction Severity [...] Note: given w/out incident/VIS given 7Result Comment: [id number] [facility] 9Result Comment: [07/21/2014] given w/out incident 10Admin Note: [facility] INFO GIVEN TO PATIENT 11Result Comment: lot #[id number] 12Admin Note: [facility] albuterol 0.083% inhalation solution 3 mL = 2.5 mg, Inhalation, Every 6 hours, PRN for wheezing, # 360 mL, 8 Refills, Maintenance, 07/07/19 14:14:00 EDT, Solution, ICD 10 J44.9, PLEASE BILL THROUGH MED B [id number] Start Date: 07/07/19 Status: Ordered alendronate 70 mg oral tablet 1 tablet = 70 mg, By Mouth, Every week, # 4 tablet, 0 Refills, Maintenance, 04/02/20 11:08:00 EDT, Tablet Start Date: 04/02/20 Status: Ordered Ativan 1 mg oral tablet 1 tablet = 1 mg, By Mouth, 3 times a day, PRN for anxiety, # 84 each, 0 Refills, Acute 01/28/21 17:00:00 EDT, 12/28/20 10:03:00 EST, Tablet, [facility], 165, cm, 12/20/20 10:40:00 EST, Height, 66.5, kg, 12/20/20 10:42:00 EST, Dry Weight Start Date: 12/28/20 Stop Date: 01/28/21 Status: Ordered Brovana 15 mcg/2 mL inhalation [...] 11:34:00 EDT, Suspension, Route to Pharmacy Electronically, [id number], [facility]/pharmacy #2024,... Start Date: 03/06/20 Status: Ordered calcium-vitamin D 600 mg-400 intl units oral tablet See Instructions, 1 tablet By Mouth twice daily, # 60 tablet, 11 Refills, Maintenance, 07/04/20 15:50:00 EDT, Tablet, [facility]/pharmacy #2024, 1 tablet By Mouth twice [...] 11/21/20 12:23:00 EST, Route to Pharmacy Electronically, [facility]/pharmacy #2024, 165, cm, 05/17/20 16:00:00 EDT, Height, 66.5,... Start Date: 11/21/20 Stop Date: 11/21/21 Status: Ordered docusate sodium 100 mg oral capsule 2 capsule, By Mouth, 2 times a day, PRN NEEDED FOR CONSTIPATION FOR, # 120 capsule, 11 Refills, Maintenance, 11/21/20 16:36:00 EST, [facility], 165, cm, 05/17/20 16:00:00 EDT, Height, 66.5, kg, 09/21/20 8:46:00 EST, Dry Weight Start Date: 11/21/20 Stop Date: 12/21/20 Status: Ordered doxycycline hyclate 100 mg oral capsule 1 capsule = 100 mg, By Mouth, 2 times a day, for 10 days, # 20 capsule, 0 Refills, Acute 01/14/21 14:42:00 EDT, 01/04/21 14:42:00 EDT, Capsule, [facility]/pharmacy #2025, 165, cm, 12/20/20 10:40:00 EST, Height, 66.5, kg, 12/20/20 10:42:00 EST, Dry Weight Start Date: 01/04/21 Stop Date: 01/14/21 Status: Ordered duloxetine 20 mg oral enteric coated capsule 1 capsule = 20 mg, By Mouth, Daily, 0 Refills, Maintenance, 04/02/20 9:18:00 EDT Start Date: 04/02/20 Status: Ordered gabapentin 400 mg oral capsule 400 mg, 1, capsule, By Mouth, 2 times a day, # 60 each, Refills 11, Tot. Refills 11, Maintenance, 02/22/20 10:31:00 EDT, [facility], [facility], 165, cm, 01/27/20 8:11:00 EDT, Height, 53.6, kg, 10/14/19 10:56:00 EST, Dry... Start Date: 02/22/20 Status: Ordered losartan 50 mg oral tablet 50 mg, 1, tablet, By Mouth, Daily, # 30 tablet, Refills 6, Tot. Refills 6, Maintenance, 10/05/20 10:44:00 EST, Route to Pharmacy Electronically, [facility]/pharmacy #2025, Partial fill upon patient request if the prescription is for a schedule II opioid drug... Start Date: 10/05/20 Stop Date: 05/03/21 Status: Ordered methadone 10 mg oral tablet See Instructions, PRN for pain, 2 tablets By Mouth in the morning, 1 tablet in the afternoon, and 3tablets by mouth in the evening 28 day schedule, # 168 each, 0 Refills, Acute 01/28/21 17:00:00 EDT, 12/28/20 10:03:00 EST, Tablet, [facility] Start Date: 12/28/20 Stop Date: 01/28/21 Status: Ordered naproxen 500 mg oral tablet 1 tablet = 500 mg, By Mouth, 2 times a day, PRN joint or muscle pain, # 60 tablet, 11 Refills, Acute 06/11/21 11:08:00 EDT, 06/11/20 11:08:00 EDT, Tablet, [facility], 165, cm, 05/17/20 16:00:00 EDT, Height, 67, kg, 05/01/20 10:40:00 EDT, Dry W... Start Date: 06/11/20 Stop Date: 06/11/21 Status: Ordered oxyCODONE 10 mg oral tablet 2 tablet = 20 mg, By Mouth, Every 4 hours, PRN as needed for pain, 28 day prescription patient may fill for less than quantity prescribed, # 224 tablet, 0 Refills, Acute 01/28/21 17:00:00 EDT, 12/28/20 10:03:00 EST, Tablet, [facility], refill... Start Date: 12/28/20 Stop Date: 01/28/21 Status: Ordered pantoprazole 40 mg oral delayed release tablet 1 tablet = 40 mg, By Mouth, Daily, PRN stomach pain, # 30 tablet, 2 Refills, Maintenance, 01/04/21 14:24:00 EDT, [facility] Tablet, 165, cm, 12/20/20 10:40:00 EST, Height, 66.5, kg, 12/20/20 10:42:00 EST, Dry Weight Start Date: 01/04/21 Status: Ordered predniSONE 10 mg oral tablet 1 OR 2 TABLETS, By Mouth, Daily, DIRECTED., # 60 tablet, 11 Refills, Acute, 05/22/20 11:58:00 EDT, [id number], 165, cm, 05/17/20 16:00:00 EDT, Height, 67, kg, 05/01/20 10:40:00 EDT, Dry Weight Start Date: 05/22/20 Status: Ordered Readi-Cat 2 oral suspension See Instructions, As per recommendations of radiology 1 the evening before when the morning of procedure, # 2 pack/packet, 0 Refills, Maintenance, 05/17/20 16:25:00 EDT, [facility], As per recommendations of radiology 1 the evening before when... Start Date: 05/17/20 Status: Ordered roflumilast 250 mcg oral tablet 1 tablet = 250 mcg, By Mouth, Daily, # 90 tablet, 3 Refills, Maintenance, 07/04/20 15:51:00 EDT, [facility]/pharmacy #2024, 165, cm, 05/17/20 16:00:00 EDT, Height, 67, kg, 05/01/20 10:40:00 EDT, Dry Weight Start Date: 07/04/20 Status: Ordered Senna 8.6 mg oral tablet 8.6 mg, 1, tablet, By Mouth, Daily, # 30 tablet, Refills 11, Tot. Refills 11, Maintenance, 03/02/2017:09:00 EDT, Route to Pharmacy Electronically, [facility]/pharmacy #2024 Tablet, 165, cm, 01/27/20 8:11:00 EDT, Height, 53.6, kg, 10/14/19 10:56:00 EST, Dry... Start Date: 03/02/20 Status: Ordered Ventolin HFA 108 mcg/inh inhalation aerosol with adapter 2 puffs, Inhalation, 4 times a day, PRN for wheezing, # 18 Gm, 11 Refills, Maintenance, 01/13/20 11:40:00 EDT, Aerosol, [facility]/pharmacy #2024, 165, cm, 11/17/19 10:08:00 EST, Height, 53.6, kg, 10/14/19 10:56:00 EST, Dry Weight Start Date: 01/13/20 Status: Ordered Yupelri 175 mcg/3 mL inhalation solution = 175 mcg, Inhalation, Daily, j44.9, # 360 mL, 6 Refills, Maintenance, 03/06/20 11:37:00 EDT, [facility]/pharmacy #2024, ICD 10 J44.9, PLEASE BILL THROUGH MED B [id number], 165, cm, 01/27/20 8:11:00 EDT, Height, 53.6, kg, 10/14/19 10:56:00 EST, Dry Weight Start Date: 03/06/20 Status: Ordered Zithromax 250 mg oral tablet See Instructions, 1 tablet By Mouth Daily on thursday, thursday, and thursday, # 12 tablet, 11 Refills, Maintenance, 07/11/20 12:50:00 EDT, Tablet, [facility], 165, cm, 05/17/20 16:00:00 EDT, Height, 67, [...]
--- OUTSIDE RECORDS SUMMARY | 2024-05-04 13:18 | XMS_ITS | Continuity of Care Document ---
Author Organization [facility] Address [address] [address]- Care Team Providers Care Paving Block Cutter Name Role Phone Renzo GRAHAM, Declan Hou Primary Care Physician [phone] Encounter [facility] Date(s): 09/02/21 - 10/02/21 [place] [id number] [address]- [place] Allergies, Adverse Reactions, Alerts Substance Reaction [...] 08/19/08 Given 1Result Comment: DONE AT [facility] 2Result Comment: [06/22/2018] given at [facility] 3Location History: [facility] 4Location History: [facility] 5Admin Note: done @ clinic 6Admin Note: given w/out incident/VIS given 7Result Comment: [id number] 8Location History: [facility] 9Result Comment: [07/21/2014] given w/out incident 10Admin Note: [facility] INFO GIVEN TO PATIENT 11Result Comment: lot #[id number] 12Admin Note: [facility] albuterol 0.083% inhalation solution 3 mL = 2.5 mg, Inhalation, Every 6 hours, PRN for wheezing, # 360 mL, 8 Refills, Maintenance, 07/07/19 14:14:00 EDT, Solution, ICD 10 J44.9, PLEASE BILL THROUGH MED B [id number] Start Date: 07/07/19 Status: Ordered alendronate 70 mg oral tablet 1 tablet = 70 mg, By Mouth, Every week, # 4 tablet, 0 Refills, Maintenance, 04/02/20 11:08:00 EDT, Tablet Start Date: 04/02/20 Status: Ordered azithromycin 250 mg oral tablet [...] Refills, Maintenance, 04/24/20 16:53:00 EDT, Solution, [facility]/pharmacy #2024, ICD Code J44.9, 165, cm, 03/12/20 8:39:00EDT, Height, 70.7, kg, 03/08/20 16:16:00 EDT, Dry... Start Date: 04/24/20 Status: Ordered budesonide 0.25 mg/2 mL inhalation suspension 0.25 mg, 2, mL, Neb, 2 times a day, for COPD J44.9. rinse mouth after use, # 120 mL, Refills 6, Tot. Refills 6, Maintenance, 03/06/20 11:34:00 EDT, Suspension, Route to Pharmacy Electronically, [id number], [facility]/pharmacy #2024,... Start Date: 03/06/20 Status: Ordered calcium-vitamin D 600 mg-400 intl units oral tablet See Instructions, 1 tablet By Mouth twice daily, # 60 tablet, 11 Refills, Maintenance, 07/04/20 15:50:00 EDT, Tablet, [facility]/pharmacy #2024, 1 tablet By Mouth twice daily, 165, cm, 05/17/20 16:00:00 EDT, Height, 67, kg, 05/01/20 10:40:00 EDT, Dry Weight Start Date: 07/04/20 Status: Ordered Citrate of Magnesia 8.85% oral liquid See Instructions, 30 mL By Mouth Once daily as needed for constipation, # 300 mL, 1 Refills, Soft Stop, 10/02/21 17:13:00 EST, Liquid, [facility]/pharmacy #2024, Partial fill upon patient request if the prescription is for a schedule II opioid drug., 30 mL B... Start Date: 10/02/21 Status: Ordered cyclobenzaprine 10 mg oral tablet 1, tablet, By Mouth, 2 times a day, PRN, # 60 each, Refills 5, Tot. Refills 5, Acute 11/21/21 12:24:00 EST, NEEDED FOR PAIN, 11/21/20 12:23:00 EST, Route to Pharmacy Electronically, [facility]/pharmacy #2024, 165, cm, 05/17/20 16:00:00 EDT, Height, 66.5,... Start Date: 11/21/20 Stop Date: 11/21/21 Status: Ordered docusate sodium 100 mg oral capsule 2 capsule, By Mouth, 2 times a day, PRN NEEDED FOR CONSTIPATION FOR, # 120 capsule, 11 Refills, Maintenance, 11/21/20 16:36:00 EST, [facility] STORE [id number], 165, cm, 05/17/20 16:00:00 EDT, Height, 66.5, kg, 09/21/20 8:46:00 EST, Dry Weight Start Date: 11/21/20 Stop Date: 12/21/20 Status: Ordered duloxetine 20 mg oral enteric coated capsule 1 capsule = 20 mg, By Mouth, Daily, # 30 capsule, 11 Refills, Maintenance, 07/16/21 15:55:00 EDT, Capsule, [facility]/pharmacy #202, Partial fill upon patient request if the prescription is for a schedule II opioid drug., 165, cm, 06/05/21 10:01:00 EDT, Hei... Start Date: 07/16/21 Status: Ordered gabapentin 400 mg oral capsule 1, capsule, By Mouth, 3 times a day, # 90 each, Refills 11, Tot. Refills 11, Maintenance, 09/09/21 11:35:00 EST, Route to Pharmacy Electronically, [facility]/pharmacy #2024, dose increase, refill when needed, 165, cm, 09/09/21 11:19:00 EST, Height, 61.4, kg,... Start Date: 09/09/21 Status: Ordered pantoprazole 40 mg oral delayed release tablet 1 tablet, By Mouth, Daily, PRN NEEDED FOR STOMACH PAIN, # 90 tablet, 3 Refills, 165, cm, 06/05/21 10:01:00 EDT, Height, 61.4, kg, 03/15/21 10:38:00 EDT, Dry Weight Start Date: 08/16/21 Status: Ordered Prolia 60 mg/mL subcutaneous solution [...] 2 Refills, Maintenance, 08/12/21 16:05:00 EDT, [facility], ICD 10 J44.9, PLEASE BILL THROUGH MED B [id number], 165, cm, 06/05/21 10:01:00 EDT, Height, 61.4, [...]
--- OUTSIDE RECORDS SUMMARY | 2024-05-04 13:18 | XMS_ITS | Continuity of Care Document ---
Author Organization [facility] Address [address] [place] [address]- Care Team Providers Care Beam Warper Name Role Phone Declan Muller MD Primary Care Physician Encounter [facility] Date(s): 09/30/23 - 10/07/23 [facility] [address] [place], [place] [address] Attending Physician: Declan Muller MD Allergies, Adverse Reactions, Alerts Substance Reaction Severity Status Levaquin tendon pains Active Augmentin gi upset Active Bactrim DS lightheaded and loopy Acti [...] Vaccine (oldterm) 13 08/19/08 Given 1Result Comment: [facility] [id number] 2Result Comment: [06/22/2018] given at [facility] 3Location History: [facility] 4Location History: [facility] 5Admin Note: done @ clinic 6Admin Note: given w/out incident/VIS given 7Result Comment: [id number], [id number] 8Result Comment: DONE AT [facility] 10Result Comment: [07/21/2014] given w/out incident 11Admin Note: [facility] INFO GIVEN TO PATIENT 12Result Comment: lot #[id number] 13Admin Note: [facility] albuterol 0.083% inhalation solution 3 mL = 2.5 mg, Inhalation, Every 6 hours, PRN for wheezing, # 360 mL, 8 Refills, Maintenance, 07/07/19 14:14:00 EDT, Solution, ICD 10 J44.9, PLEASE BILL THROUGH MED B [id number] Start Date: 07/07/19 Status: Ordered albuterol 90 [...] 11:34:00 EDT, Suspension, Route to Pharmacy Electronically, [id number], [facility]/pharmacy #202,... Start Date: 03/06/20 Status: Ordered calcium-vitamin D 600 mg-400 intl units oral tablet 1 tablet, By Mouth, 2 times a day, # 180 tablet, 1 Refills, Maintenance, 10/07/22 11:54:00 EST, [id number], [facility], TAKE 1 TABLET BY MOUTH TWICE [...] 09/24/23 14:08:00 EST, Route to Pharmacy Electronically, [facility]/pharmacy #2024, 165, cm, 09/04/23 8:51:00 EST, [...] 11 Refills,Maintenance, 09/30/23 11:27:00 EST, EC Tablet, [facility]/pharmacy #202, Partial fill upon patient request [...] capsule, 11 Refills, Maintenance, 03/03/23 10:03:00 EDT, [facility]/pharmacy #2024, 165, cm, 01/21/23 10:40:00 EDT, Height, 55.8, kg, 01/23/23 8:24:00 EDT, Dry Weight Start Date: 03/03/23 Stop Date: 02/26/24 Status: Ordered duloxetine 30 mg oral enteric coated capsule 1 capsule = 30 mg, By Mouth, Daily, # 30 capsule, 11 Refills, Maintenance, 09/14/23 16:34:00 EST, [facility] fill upon patient request if the prescription is for a schedule II opioid drug., 165, cm, 09/04/23 8:51:00 EST, [facility]... Start Date: 09/14/23 Status: Ordered gabapentin 400 mg oral capsule 1, capsule, By Mouth, 3 times a day, # 90 capsule, Refills 11, Maintenance, 10/07/22 13:28:00 EST, Route to Pharmacy Electronically, [facility] STORE [id number], 165, cm, 08/26/22 11:06:00 EST, Height, 64.7, [...] Refills, Maintenance, 10/15/22 9:58:00 EST, [facility], 165, cm, 10/09/22 11:32:00 EST, Height, 64.7, [...] 09/24/24 14:08:00 EST, 09/24/23 14:07:00 EST, Tablet, [facility]/pharmacy #20... Start Date: 09/24/23 Stop Date: 09/24/24 Status: Ordered nystatin 333463 u/ml oral suspension 5 mL, By Mouth, 4 times a day, # 480 mL, 1 Refills, Physician Stop 09/30/24 11:03:00 EST, 09/30/23 11:02:00 EST, [facility], 165, cm, 09/30/23 10:35:00 EST, Height, 55, [...] Refills, Maintenance, 11/13/22 14:34:00 EST, Capsule, [facility], Partial fill upon [...] 10 J44.9, PLEASE BILL THROUGH MED B [id number], 165, cm, 06/05/21 10:01:00 EDT, Height, 61.4, kg, 03/15/... Start Date: 08/12/21 Status: Ordered ZyrTEC 10 mg oral tablet 1 tablet = 10 mg, By Mouth, Daily, PRN Sinus Symptoms, # 30 tablet, 11 Refills, Maintenance, 01/21/23 11:04:00 EDT, Tablet, [facility], 165, cm, 01/21/23 10:40:00 EDT, Height, 64.7, [...] oldest [Reference Range]: 1 Height 165 cm (09/30/23 10:35 AM) Weight 55 kg (09/30/23 10:35 AM) Oxygen Saturation [94-100 %] 96 % (09/30/23 10:35 AM) Pulse Rate [55-90 bpm] 93 bpm *H* (09/30/23 10:35 AM) Body Mass Index [18.5-24.99 kg/m2] 20.2 kg/m2 (09/30/23 10:35 AM) Blood Pressure [90-138/55-84 mm Hg] 124/ 73mm Hg (09/30/23 10:35 AM) Temperature [96.8-100.4 DegF] 98.1 DegF (09/30/23 10:35 AM) Mode of Delivery (Oxygen) Room air (09/30/23 10:35 AM) Blood pressure sites Arm, left (09/30/23 10:35 AM) Temperature Route Temporal (09/30/23 10:35 AM) Dry Weight 55 kg (09/30/23 10:35 AM) Weight Obtained Via Standing scale (09/30/23 10:35 AM) Dry Weight Obtained Via Standing scale (09/30/23 10:35 AM) Social History Social History Type Response Smoking Status Former smoker, quit more than 30 days ago; Other: quit 20 years ago; entered on: 09/24/19 Sex Note * Leatha Velázquez: PERFORM, SIGN, VERIFY Event Display: Patient Education/Instruction Authored Date: [id number] [facility] *[facility] Clinical Summary Name KARYN TAYLOR Age 63 Years 1960 PCP Declan Muller MD PCP Visit Date 09/30/2023 10:32:00 Patient Instructions continue current medication, diet, and cautious activity; check lab and xray;??will arrange referral to [facility] cardiology; diclofenac twice daily for right arm pain, p.t. referral??if symptoms continue Additional Instructions: Scheduled Appointments?? Future Appointments ?No Future Appointments Scheduled Follow-Up Instructions ?? Diagnosis Heart failure, unspecified; Hyperglycemia, unspecified; Chronic obstructive pulmonary disease, unspecified; Chronic pain syndrome; Primary central sleep apnea; Essential (primary) hypertension; Combined immunodeficiency, unspecified; Pain in right arm; Fatty (change of) liver, not elsewhere classified Medications: Please continue your medications until treatment is completed or stopped by your provider. Discuss any questions related to medications with your provider. New Medications [facility] [place] [place] [id number], [phone] Triamcinolone Topical (triamcinolone 0.1% topical cream) 1 fransisca Topically 3 times a day as needed skin rash. Refills: 1. Next Dose: Medications to Continue Taking That Have Changed These medications were not printed or sent to your pharmacy - Lisinopril (lisinopril 5 mg oral tablet) 2 tab(s) Oral Daily. Next Dose: Medications to Continue with No Changes [facility] [place] [place] [id number], [phone] Diclofenac (diclofenac sodium 75 mg oral delayed release tablet) 1 tab(s) Oral twice a day as needed rib or arm pain. with food. Refills: 11. Next Dose: Nystatin (nystatin 258135 u/ml oral suspension) 5 Milliliter Oral 4 times a day. Refills: 1. Next Dose: These medications were not printed or sent [...] do not swallow. Refills: 1. Next Dose: bacillus coagulans-inulin (Probiotic Formula (Bacillus Coagulans) oral capsule) 1 capsule Oral Daily. Refills: 11. Next Dose: Budesonide (budesonide 0.25 mg/2 mL inhalation suspension) 2 Milliliter Nebulized inhalation twice a day. for COPD J44.9. rinse mouth after use. Refills: 6. Next Dose: Calcium And Vitamin D Combination (calcium-vitamin D 600 mg-400 intl units oral tablet) 1 tab(s) Oral twice a day. Refills: 1. Next Dose: Cetirizine (ZyrTEC 10 mg oral tablet) 1 tab(s) Oral Daily as needed Sinus Symptoms. Refills: 11. Next Dose: Cyclobenzaprine (cyclobenzaprine 10 mg oral tablet) 1/2 OR 1 TABLET Oral twice a day as needed NEEDED FOR MUSCLE PAIN OR SPASM. Refills: 5. Next Dose: Digoxin (Digox 250 mcg (0.25 mg) oral tablet) 1 tab(s) Oral Daily. Next Dose: Docusate (docusate sodium 100 mg oral capsule) 2 capsule Oral twice a day as needed NEEDED FOR CONSTIPATION FOR for 30 Days. Refills: 11. Next Dose: Duloxetine (duloxetine 30 mg oral enteric coated capsule) 1 capsule Oral Daily. Refills: 11. Next Dose: Furosemide (Lasix 40 mg oral tablet) 1 tab(s) Oral Daily. Next Dose: Gabapentin (gabapentin 400 mg oral capsule) 1 capsule Oral 3 times a day. Refills: 11. Next Dose: linaclotide (Linzess 145 mcg oral capsule) 1 capsule Oral Daily. Refills: 3. Next Dose: Lorazepam (Ativan 1 mg oral tablet) 1 tab(s) Oral 3 times a day as needed for anxiety. Refills: 0. Next Dose: Methadone (methadone 10 mg oral tablet) 2 tablets By Mouth in the morning, 1 tablet in the afternoon, and 3 tablets by mouth in the evening 28 day schedule; as needed for pain. Refills: 0. Next Dose: Ondansetron (ondansetron 4 mg oral tablet, disintegrating) 1 tab(s) Oral every 6 hours as needed Nausea & Vomiting. Refills: 1. Next Dose: Pantoprazole (pantoprazole 40 mg oral delayed release tablet) 1 tab(s) Oral Daily as needed NEEDED FOR STOMACH PAIN. Refills: 3. Next Dose: revefenacin (Yupelri 175 mcg/3 mL inhalation solution) 175 Microgram Inhalation Daily. j44.9 please bill through [facility]. Refills: 2. Next Dose: roflumilast (Daliresp) Oral Daily. Next Dose: Testosterone (testosterone 2% transdermal cream) Next Dose: Allergy Info:?? Bactrim DS; Levaquin; Augmentin Medications Given This Visit Future Orders ?Hemoglobin A1C (Monitoring)? Order Date:09/30/23?- Complete on or after?09/30/23 ?CBC w/ Differential? Order Date:09/30/23?- Complete on or after?09/30/23 ?Comprehensive Metabolic Panel? Order Date:09/30/23?- Complete on or after?09/30/23 ?Sedimentation Rate? Order Date:09/30/23?- Complete on or after?09/30/23 ?Humerus Min 2 Views Right? Order Date:09/30/23?- Complete on or after?09/30/23 ?Shoulder Min 2 Views Right? Order Date:09/30/23?- Complete on or after?09/30/23 Vital Signs Height 165 cm Weight 55 kg BMI 20.2 kg/m2 Blood Pressure 124 mm Hg/73 mm Hg Temperature 98.1 DegF Pulse Rate 93 bpm Respiratory Rate 02 Sat Mode of Delivery 96 %/Room air You can now view a summary of your hospital visit from the comfort of your home through a free online portal called [employer]. [employer] is a website that allows you to securely view your medical information including discharge summary, medications and follow-up visits. ??You can alsosend a secure electronic message to your doctor???s office to request appointments, renew medications or just ask a question. You can enroll at [email or web address] or register during your next office [...] primary care provider, you may find a [facility] provider by calling [facility] at [phone]. [facility], in keeping with [facility] guidance, no longer requires face masks [...] Care Team Personnel Name: Joelle Castillo Position: [facility] [place] RN Member Role: Primary Care Nurse Name: Marilee Pitts RN Position: S RN Member Role: Primary Care Nurse Name: Shawnee Schafer RN Position: [facility] SN RN Member Role: Primary Care Nurse Name: Declan Muller MD Position: [facility] Physician - Primary Care Member Role: PCP Address: Address: [address] [place] [address] Adult & Pediatric Medicine [place], [place] [address] Name: Aylin Byrne RN Position: [facility] RN Member Role: Primary Care Nurse Name: Edilma Metzger RN Position: S RN Member Role: Primary Care Nurse Name: Katherine Bond RN Position: [facility] SN RN Member Role: Primary Care Nurse Name: Gena Chavez RN Position: [facility] pharmacy technician assistant Member Role: [employer] Name: Kerry Negron RN Position: S RN Member Role: Primary Care Nurse Name: Joslyn Dodge RN Position: [facility] SN RN Member Role: Primary Care Nurse Name: Missy Avilez RN Position: [facility] [place] RN Member Role: Primary Care Nurse Name: Katina Marcus RN Position: S RN Member Role: Primary Care Nurse Name: Sienna Horne RN Position: [facility] RN Member Role: Primary Care Nurse Name: Ernestine Thomas RN Position: [facility] RN Member Role: Primary Care Nurse Care Team Related Persons Name: JANICE TAYLOR Address: [address] [address]
--- OUTSIDE RECORDS SUMMARY | 2024-05-04 13:18 | XMS_ITS | Continuity of Care Document ---
Author Organization [facility] Address [address] [place] [address]- Care Team Providers Care National Stormwater Leader Name Role Phone Renzo GRAHAM, Declan Hou Primary Care Physician [phone] [facility] Date[facility]): 02/29/24 - 03/30/24 [facility] [address] [place], [place] [address] Allergies, Adverse Reactions, Alerts Substance Reaction Severity Status Augmentin gi upset Active Levaquin tendon pains Active Bactrim DS lightheaded and loopy Acti ve Immunizations Given and Recorded Vaccine Date Status Refusal Reason zoster vaccine, inactivated 09/17/22 Recorded zoster vaccine, inactivated 06/18/22 Recorded influenza virus vaccine, inactivated 1 08/19/22 Gi seefrino influenza virus vaccine, inactivated 09/21/21 Dawit rded [...] Vaccine (oldterm) 13 08/19/08 Given 1Result Comment: [facility] [id number] 2Result Comment: [06/22/2018] given at [facility] 3Location History: [facility] 5Admin Note: done @ clinic 6Admin Note: given w/out incident/VIS given 7Result Comment: [id number] 8Result Comment: DONE AT [facility] 10Result Comment: [07/21/2014] given w/out incident 11Admin Note: [facility] INFO GIVEN TO PATIENT 12Result Comment: lot #[id number] 13Admin Note: [facility] albuterol 0.083% inhalation solution 3 mL = 2.5 mg, Inhalation, Every 6 hours, PRN for wheezing, # 360 mL, 8 Refills, Maintenance, 07/07/19 14:14:00 EDT, Solution, ICD 10 J44.9, PLEASE BILL THROUGH MED B [id number] Start Date: 07/07/19 Status: Ordered albuterol 90 mcg/inh inhalation aerosol 0 Refills, Maintenance Start Date: 04/30/20 Status: Ordered Ativan 1 mg oral tablet 1 tablet = 1 mg, By Mouth, 3 times a day, PRN for anxiety, # 84 each, 0 Refills, Maintenance, 01/13/24 12:46:00 EDT, [facility]t, [facility], 165, cm, 12/30/23 11:12:00 EDT, Height, 52.9, kg, 12/30/23 11:12:00 EDT, Dry Weight Start Date: 01/13/24 Status: Ordered Brovana 15 mcg/2 mL inhalation [...] 11:34:00 EDT, Suspension, Route to Pharmacy Electronically, [id number], [facility]/pharmacy #2025,... Start Date: 03/06/20 Status: Ordered calcium-vitamin D 600 mg-400 intl units oral tablet 1 tablet, By Mouth, 2 times a day, # 180 tablet, 1 Refills, Maintenance, 10/07/22 11:54:00 EST, [facility], [facility], TAKE 1 TABLET BY MOUTH TWICE A DAY, 165, cm, 08/26/22 11:06:00 EST, Height, 64.7, kg, 10/03/22 8:14:00 EST, Dry Weight Start Date: 10/07/22 Status: Ordered cetirizine 10 mg oral tablet 1 tablet, By Mouth, Daily, PRN NEEDED FOR SINUS SYMPTOMS, # 90 tablet, 1 Refills, Maintenance, 12/09/23 1:28:00 EST, [facility]/pharmacy #2024, 165, cm, 09/30/23 10:35:00 EST, Height, 53.7, kg, 11/27/23 8:47:00 EST, Dry Weight Start Date: 12/09/23 Status: Ordered cyclobenzaprine 10 mg oral tablet 1/2 OR 1 TABLET, By Mouth, 2 times a day, PRN, # 60 tablet, Refills 5, Tot. Refills 5, Maintenance, NEEDED FOR MUSCLE PAIN OR SPASM, 01/13/24 12:46:00 EDT, Route to Pharmacy Electronically, [facility]/pharmacy #5, 165, cm, 12/30/23 11:12:00 EDT, Height... Start Date: 01/13/24 Status: Ordered Daliresp By Mouth, Daily, 0 Refills, Maintenance, 03/06/22 12:15:00 EDT, Partial fill upon patient request if the prescription is for a schedule II opioid drug. Start Date: 03/06/22 Status: Ordered docusate sodium 100 mg oral capsule 2 capsule, By Mouth, 2 times a day, PRN NEEDED FOR CONSTIPATION FOR, # 360 capsule, 1 Refills, Maintenance, 02/29/24 11:02:00 EDT, [facility]/pharmacy #202, 165, cm, 12/30/23 11:12:00 EDT, Height, 51.1,kg, 02/19/24 8:56:00 EDT, Dry Weight Start Date: 02/29/24 Stop Date: 02/23/25 Status: Ordered duloxetine 30 mg oral enteric [...] 12/29/24 11:27:00EDT, 12/30/23 11:27:00 EDT, Cream, [facility], Partial fill upon [...] opioid drug. Start Date: 12/30/23 Status: Ordered meloxicam 15 mg oral tablet 1 tablet = 15 mg, By Mouth, Daily, with food as needed for back pain, # 30 tablet, 5 Refills, Maintenance, 01/08/24 12:43:00 EDT, Tablet, [facility]/pharmacy #2024, Partial fill upon patient request if the prescription is for a schedule II opioid drug., 165,... Start Date: 01/08/24 Status: Ordered methadone 10 mg oral tablet See Instructions, PRN for pain, 1 tablet By Mouth twice daily, # 56 each, 0 Refills, Maintenance, 03/28/24 14:34:00 EDT, Tablet, [facility]/pharmacy #202, refill when due, 165, cm, 12/30/23 11:12:00 EDT, Height, 51, kg, 03/18/24 9:15:00 EDT, Dry Weight Start Date: 03/28/24 Status: Ordered metoprolol 100 mg oral tablet, extended release 100 mg, 1, tablet, By Mouth, Daily, # 90 tablet, Refills 0, Maintenance, 12/30/23 11:29:00 EDT, Partial fill upon patient request if the prescription is for a schedule II opioid drug. Start Date: 12/30/23 Status: Ordered nystatin 984590 u/ml oral suspension 5 mL, By Mouth, 4 times a day, # 480 mL, 1 Refills, Physician Stop 09/30/24 11:03:00 EST, 09/30/23 11:02:00 EST, [facility]/pharmacy #2024, 165, cm, 09/30/23 10:35:00 EST, Height, 55, kg, 09/30/23 10:35:00 EST, Dry Weight Start Date: 09/30/23 Stop Date: 09/30/24 Status: Ordered ondansetron 4 mg oral tablet, disintegrating 1 tablet = 4 mg, By Mouth, Every 6 hours, PRN Nausea & Vomiting, # 20 each, 1 Refills, Acute 12/28/24 12:00:00 EDT, 12/29/23 12:52:00 EDT, Tablet, [facility]/pharmacy #2024, Partial fill upon patient request if the prescription is for a schedule II opioid drJina. Start Date: 12/29/23 Stop Date: 12/28/24 Status: [...] opioid drug. Start Date: 03/06/22 Status: Ordered Valtrex 500 mg oral tablet 500 mg, 1, tablet, By Mouth, 2 times a day, PRN, # 30 each, Refills 5, Tot. Refills 5, Acute 01/21/25 7:52:00 EDT, skin symptoms, 01/22/24 7:51:00 EDT, Route to Pharmacy Electronically, [facility]/pharmacy #2024, Partial fill upon patient request if the pres... Start Date: 01/22/24 Stop Date: 01/21/25 Status: Ordered Ventolin HFA 108 mcg/inh inhalation [...] 10 J44.9, PLEASE BILL THROUGH MED B [id number], 165, cm, 06/05/21 10:01:00 EDT, Height, 61.4, kg, ... Start Date: 08/12/21 Status: Ordered Problem List [...] Provider Start Date:10/02/23 End Date: Status:Done Progression:Met Patient Care team information Care Team Personnel Name: Joelle Castillo Position: [facility] Onco RN Member Role: Primary Care Nurse Name: Shawnee Schafer RN Position: [facility] SN RN Member Role: Primary Care Nurse Name: Declan Muller MD Position: [facility] Physician - Primary Care Member Role: PCP Address: Address: [address] [place] [address] & [place] [address]- Name: Aylin Byrne RN Position: [facility] RN Member Role: Primary Care Nurse Name: Edilma Metzger RN Position: [facility] RN Member Role: Primary Care Nurse Name: Katherine Bond RN Position: [facility] SN RN Member Role: Primary Care Nurse Name: Gena Chavez RN Position: [facility] advanced solutions architect Member Role: Bell Neck Hammerer Name: Kerry Negron RN Position: [facility] RN Member Role: Primary Care Nurse Name: Joslyn Dodge RN Position: [facility] AMB Nurse Member Role: Primary Care Nurse Name: Missy Avilez RN Position: [facility] Onco RN Member Role: Primary Care Nurse Name: Katina Marcus RN Position: [facility] RN Member Role: Primary Care Nurse Name: Sienna Horne RN Position: [facility] RN Member Role: Primary Care Nurse Name: Ernestine Thomas RN Position: [facility] RN Member Role: Primary Care Nurse Care Team Related Persons Name: JANICE TAYLOR Address: [address] [address]
--- OUTSIDE RECORDS SUMMARY | 2024-05-04 13:18 | XMS_ITS | Continuity of Care Document ---
Author Organization [facility] Address [address] [place] [address]- Care Team Providers Care Fire Patroller Name Role Phone Renzo GRAHAM, Declan Hou Primary Care Physician [phone] [facility]counter [facility] Date[facility]s): 08/31/23 - 10/09/23 [facility] [address] [place], [place] [address] Attending Physician: Christiane Henning NP Allergies, Adverse Reactions, Alerts Substance Reaction [...] Vaccine (oldterm) 13 08/19/08 Given 1Result Comment: [facility] [id number] 2Result Comment: [06/22/2018] given at [facility] 3Location History: [facility] 4Location History: [facility] 5Admin Note: done @ clinic 6Admin Note: given w/out incident/VIS given 7Result Comment: [id number] 8Result Comment: DONE AT [facility] 10Result Comment: [07/21/2014] given w/out incident 11Admin Note: CDC INFO GIVEN TO PATIENT 12Result Comment: lot #[id number] 13Admin Note: [facility] albuterol 0.083% inhalation solution 3 mL = 2.5 mg, Inhalation, Every 6 hours, PRN for wheezing, # 360 mL, 8 Refills, Maintenance, 07/07/19 14:14:00 EDT, Solution, ICD 10 J44.9, PLEASE BILL THROUGH MED B [id number] Start Date: 07/07/19 Status: Ordered albuterol 90 [...] 11:34:00 EDT, Suspension, Route to Pharmacy Electronically, [id number], [facility]/pharmacy #2024,... Start Date: 03/06/20 Status: Ordered calcium-vitamin D 600 mg-400 intl units oral tablet 1 tablet, By Mouth, 2 times a day, # 180 tablet, 1 Refills, Maintenance, 10/07/22 11:54:00 EST, [facility], 90, TAKE 1 TABLET BY MOUTH TWICE [...] 09/24/23 14:08:00 EST, Route to Pharmacy Electronically, [facility]/pharmacy #2024, 165, cm, 09/04/23 8:51:00 EST, Height,... [...] 11 Refills,Maintenance, 09/30/23 11:27:00 EST, EC Tablet, [facility]/pharmacy #202, Partial fill upon patient request [...] capsule, 11 Refills, Maintenance, 03/03/23 10:03:00 EDT, [facility]/pharmacy #2024, 165, cm, 01/21/23 10:40:00 EDT, Height, 55.8, kg, 01/23/23 8:24:00 EDT, Dry Weight Start Date: 03/03/23 Stop Date: 02/26/24 Status: Ordered duloxetine 30 mg oral enteric coated capsule 1 capsule = 30 mg, By Mouth, Daily, # 30 capsule, 11 Refills, Maintenance, 09/14/23 16:34:00 EST, [facility] Partial fill upon patient request if the prescription is for a schedule II opioid drug., 165, cm, 09/04/23 8:51:00 EST, [place]... Start Date: 09/14/23 Status: Ordered gabapentin 400 mg oral capsule 1, capsule, By Mouth, 3 times a day, # 90 capsule, Refills 11, Maintenance, 10/07/22 13:28:00 EST, Route to Pharmacy Electronically, [facility], 165, cm, 08/26/22 11:06:00 EST, Height, 64.7, [...] Refills, Maintenance, 10/15/22 9:58:00 EST, [facility], 165, cm, 10/09/22 11:32:00 EST, Height, 64.7, [...] 09/24/24 14:08:00 EST, 09/24/23 14:07:00 EST, Tablet, [facility]/pharmacy #20... Start Date: 09/24/23 Stop Date: 09/24/24 Status: Ordered nystatin 986171 u/ml oral suspension 5 mL, By Mouth, [...] 10 J44.9, PLEASE BILL THROUGH MED B [id number], 165, cm, 06/05/21 10:01:00 EDT, Height, 61.4, [...] Care Team Personnel Name: Joelle Castillo Position: [facility] Onco RN Member Role: Primary Care Nurse Name: Marilee Pitts RN Position: [facility] RN Member Role: Primary Care Nurse Name: Shawnee Schafer RN Position: [facility] SN RN Member Role: Primary Care Nurse Name: Declan Muller MD Position: [facility] Physician - Primary Care Member Role: PCP Address: Address: [address] [place] [address] Adult & Pediatric Medicine [address] Name: Aylin Byrne RN Position: [facility] RN Member Role: Primary Care Nurse Name: Edilma Metzger RN Position: S RN Member Role: Primary Care Nurse Name: Katherine Bond RN Position: [facility] SN RN Member Role: Primary Care Nurse Name: Gena Chavez RN Position: [facility] credit review manager Member Role: Control Room Agent Name: Kerry Negron RN Position: [facility] RN Member Role: Primary Care Nurse Name: Joslyn Dodge RN Position: [facility] SN RN Member Role: Primary Care Nurse Name: Missy Avilez RN Position: [facility] Onco RN Member Role: Primary Care Nurse Name: Katina Marcus RN Position: [facility] RN Member Role: Primary Care Nurse Name: Sienna Horne RN Position: [facility] RN Member Role: Primary Care Nurse Name: Ernestine Thomas RN Position: [facility] RN Member Role: Primary Care Nurse Care Team Related Persons Name: JANICE TAYLOR Address: [address] [address]
--- OUTSIDE RECORDS SUMMARY | 2024-05-04 13:18 | XMS_ITS | Continuity of Care Document ---
Author Organization [facility] ter Address [address] [place] [address]- Care Team Providers Care Orthotic/Prosthetic Clinician Name Role Phone Renzo GRAHAM, Declan Hou Primary Care Physician [phone] [facility]counter [facility] Date(s): 11/23/20 - 02/17/[address] [address] Attending Physician: Heide GRAHAM(Hem/Onc)Fercho Admitting Physician: Heide GRAHAM(Hem/Onc), Fercho Corral Referring Physician: Heide GRAHAM(Hem/Onc), Fercho Corral Allergies, Adverse Reactions, Alerts Substance Reaction Severity [...] 12 08/19/08 Given 1Result Comment: DONE AT [facility] 2Result Comment: [06/22/2018[facility] 5Admin Note: done @ clinic 6Admin Note: given w/out incident/VIS given 7Result Comment: [id number], [id number] 8[facility] 9Result Comment: [07/21/2014] given w/out incident 10Admin Note: CDC INFO GIVEN TO PATIENT 11Result Comment: lot #[id number] 12Admin Note: [facility] albuterol 0.083% inhalation solution 3 mL = 2.5 mg, Inhalation, Every 6 hours, PRN for wheezing, # 360 mL, 8 Refills, Maintenance, 07/07/19 14:14:00 EDT, Solution, ICD 10 J44.9, PLEASE BILL THROUGH MED B [id number] Start Date: 07/07/19 Status: Ordered alendronate 70 mg oral tablet 1 tablet = 70 mg, By Mouth, Every week, # 4 tablet, 0 Refills, Maintenance, 04/02/20 11:08:00 EDT, Tablet Start Date: 04/02/20 Status: Ordered Ativan 1 mg oral tablet 1 tablet = 1 mg, By Mouth, 3 times a day, PRN for anxiety, # 84 each, 0 Refills, Acute 02/24/21 17:00:00 EDT, 01/25/21 8:00:00 EDT, Tablet, [facility], 165, cm, 12/20/20 10:40:00 EST, Height,66.7, kg, 01/18/21 9:32:00 EDT, Dry Weight Start Date: 01/25/21 Stop Date: 02/24/21 Status: Ordered Brovana 15 mcg/2 mL inhalation [...] 11:34:00 EDT, Suspension, Route to Pharmacy Electronically, [id number], [facility]/pharmacy #2024,... Start Date: 03/06/20 Status: Ordered calcium-vitamin D 600 mg-400 intl units oral tablet See Instructions, 1 tablet By Mouth twice daily, # 60 tablet, 11 Refills, Maintenance, 07/04/20 15:50:00 EDT, Tablet, [facility]/pharmacy #2024, 1 tablet By Mouth twice [...] 11/21/20 12:23:00 EST, Route to Pharmacy Electronically, [facility]/pharmacy #2024, 165, cm, 05/17/20 16:00:00 EDT, Height, 66.5,... Start Date: 11/21/20 Stop Date: 11/21/21 Status: Ordered docusate sodium 100 mg oral capsule 2 capsule, By Mouth, 2 times a day, PRN NEEDED FOR CONSTIPATION FOR, # 120 capsule, 11 Refills, Maintenance, 11/21/20 16:36:00 EST, [facility], 165, cm, 05/17/20 16:00:00 EDT, Height, 66.5, [...] 01/30/21 11:23:00 EDT, Route to Pharmacy Electronically, [facility], 165, cm, 12/20/20 10:40:00 EST, Height, 66.7, kg, 01/18/21 9:32:00 EDT, Dry Weight Start Date: 01/30/21 Status: Ordered losartan 50 mg oral tablet 50 mg, 1, tablet, By Mouth, Daily, # 30 tablet, Refills 6, Tot. Refills 6, Maintenance, 10/05/20 10:44:00 EST, Route to Pharmacy Electronically, [facility]/pharmacy #2025, Partial fill upon patient request if the prescription is for a schedule II opioid drug... Start Date: 10/05/20 Stop Date: 05/03/21 Status: Ordered methadone 10 mg oral tablet See Instructions, PRN for pain, 2 tablets By Mouth in the morning, 1 tablet in the afternoon, and 3tablets by mouth in the evening 28 day schedule, # 168 each, 0 Refills, Acute 02/24/21 17:00:00 EDT, 01/25/21 8:00:00 EDT, Tablet, [facility] Start Date: 01/25/21 Stop Date: 02/24/21 Status: Ordered naproxen 500 mg oral tablet [...] prescribed, # 224 tablet, 0 Refills, Acute 02/24/21 17:00:00 EDT, 01/25/21 8:00:00 EDT, Tablet, [facility], refill... Start Date: 01/25/21 Stop Date: 02/24/21 Status: Ordered pantoprazole 40 mg oral delayed [...] Refills, Acute, 05/22/20 11:58:00 EDT, [facility], 165, cm, 05/17/20 16:00:00 EDT, Height, 67, [...] 3 Refills, Maintenance, 07/04/20 15:51:00 EDT, [facility], 165, cm, 05/17/20 16:00:00 EDT, Height, 67, kg, 05/01/20 10:40:00 EDT, Dry Weight Start Date: 07/04/20 Status: Ordered Senna 8.6 mg oral tablet 8.6 mg, 1, tablet, By Mouth, Daily, # 30 tablet, Refills 11, Tot. Refills 11, Maintenance, 03/02/2017:09:00 EDT, Route to Pharmacy Electronically, [facility]/pharmacy #2024 Tablet, 165, cm, 01/27/20 8:11:00 EDT, Height, 53.6, kg, 10/14/19 10:56:00 EST, Dry... Start Date: 03/02/20 Status: Ordered Ventolin HFA 108 mcg/inh inhalation aerosol with adapter 2 puffs, Inhalation, 4 times a day, PRN for wheezing, # 18 Gm, 11 Refills, Maintenance, 01/13/20 11:40:00 EDT, Aerosol, [facility]/pharmacy #2024, 165, cm, 11/17/19 10:08:00 EST, Height, 53.6, kg, 10/14/19 10:56:00 EST, Dry Weight Start Date: 01/13/20 Status: Ordered Yupelri 175 mcg/3 mL inhalation solution = 175 mcg, Inhalation, Daily, j44.9 please bill through med B, # 120 mL, 3 Refills, Maintenance, 01/22/21 8:54:00 EDT, [facility]/pharmacy #2024, ICD 10 J44.9, PLEASE BILL THROUGH MED B [id number], 165, cm, 12/20/20 10:40:00 EST, Height, 66.7, kg, 01/18/... Start Date: 01/22/21 Status: Ordered Zithromax 250 mg oral tablet See Instructions, 1 tablet By Mouth Daily on thursday, thursday, and thursday, # 12 tablet, 11 Refills, Maintenance, 07/11/20 12:50:00 EDT, Tablet, [facility]/pharmacy #2024, 165, cm, 05/17/20 16:00:00 EDT, [...]
--- OUTSIDE RECORDS SUMMARY | 2024-05-04 13:19 | XMS_ITS | Continuity of Care Document ---
Author Organization [facility] Address [address] [place] [address]- Care Team Providers Care Robotic Welding Operator Name Role Phone Declan Muller MD Primary Care Physician [phone] Encounter [facility] Date(s): 06/05/21 - 06/12/21 [facility] [address] [place] [address]- Encounter Diagnosis Abdominal pain(Discharge Diagnosis) - 06/05/21 Chronic obstructive lung disease(Discharge Diagnosis) - 06/05/21 Immunodeficiency disorder, hypogammaglobulinemia(Discharge Diagnosis) - 06/05/21 Lumbar radiculopathy(Discharge Diagnosis) - 06/05/21 Hypertension(Discharge Diagnosis) - 06/05/21 Attending Physician: Declan Muller MD Allergies, Adverse [...] 12 08/19/08 Given 1Result Comment: DONE AT [facility] 2Result Comment: [06/22/2018] given at [facility] 3Location History: [facility] 5Admin Note: done @ clinic 6Admin Note: given w/out incident/VIS given 7Result Comment: [id number], [id number] 8[facility] 9Result Comment: [07/21/2014] given w/out incident 10Admin Note: CDC INFO GIVEN TO PATIENT 11Result Comment: lot #[id number] 12Admin Note: [facility] albuterol 0.083% inhalation solution 3 mL = 2.5 mg, Inhalation, Every 6 hours, PRN for wheezing, # 360 mL, 8 Refills, Maintenance, 07/07/19 14:14:00 EDT, Solution, ICD 10 J44.9, PLEASE BILL THROUGH MED B [id number] Start Date: 07/07/19 Status: Ordered alendronate 70 [...] 11:34:00 EDT, Suspension, Route to Pharmacy Electronically, [id number], [facility]/pharmacy #2024,... Start Date: 03/06/20 Status: Ordered calcium-vitamin D 600 mg-400 intl units oral tablet See Instructions, 1 tablet By Mouth twice daily, # 60 tablet, 11 Refills, Maintenance, 07/04/20 15:50:00 EDT, Tablet, [facility]/pharmacy #2024, 1 tablet By Mouth twice [...] 11/21/20 12:23:00 EST, Route to Pharmacy Electronically, [facility]/pharmacy #2024, 165, cm, 05/17/20 16:00:00 EDT, Height, 66.5,... Start Date: 11/21/20 Stop Date: 11/21/21 Status: Ordered docusate sodium 100 mg oral capsule 2 capsule, By Mouth, 2 times a day, PRN NEEDED FOR CONSTIPATION FOR, # 120 capsule, 11 Refills, Maintenance, 11/21/20 16:36:00 EST, [facility], 165, cm, 05/17/20 16:00:00 EDT, Height, 66.5, [...] 01/30/21 11:23:00 EDT, Route to Pharmacy Electronically, [facility] 80[facility], 165, cm, 12/20/20 10:40:00 EST, Height, 66.7, [...] 06/17/21 17:00:00 EDT, 05/17/21 8:06:00 EDT, Tablet, [facility]/pharmacy #202... Start Date: 05/17/21 Stop Date: 06/17/21 Status: Ordered oxyCODONE 10 mg oral tablet 2 tablet = 20 mg, By Mouth, Every 4 hours, PRN as needed for pain, 28 day prescription patient may fill for less than quantity prescribed, # 224 tablet, 0 Refills, Acute 06/17/21 17:00:00 EDT, 05/17/21 8:06:00 EDT, Tablet, [facility]/pharmacy #2025, refill... Start Date: 05/17/21 Stop Date: 06/17/21 Status: Ordered pantoprazole 40 mg oral delayed release tablet 1 tablet, By Mouth, Daily, PRN NEEDED FOR STOMACH PAIN, # 90 tablet, 0 Refills, Maintenance, 02/27/21 7:47:00 EDT, 165, cm, 12/20/20 10:40:00 EST, Height, 66.7, kg, 01/18/21 9:32:00 EDT, Dry Weight Start Date: 02/27/21 Status: Ordered Prolia 60 mg/mL subcutaneous solution [...] 3 Refills, Maintenance, 01/22/21 8:54:00 EDT, [facility], ICD 10 J44.9, PLEASE BILL THROUGH MED B [id number], 165, cm, 12/20/20 10:40:00 EST, Height, 66.7, kg, ... Start Date: 01/22/21 Status: Ordered ZyrTEC 10 [...] Effective Dates Health Status Clinical Service Informant Abdominal pain Discharge Diagnosis 06/05/21 Chronic obstructive lung disease Discharge Diagnosis 06/05/21 Immunodeficiency disorder, hypogammaglobulinemia Discharge Diagnosis 06/05/21 Lumbar radiculopathy Discharge Diagnosis 06/05/21 Hypertension Discharge Diagnosis 06/05/21 Vital Signs Most recent to oldest [Reference Range]: 1 Height 165 cm (06/05/21 10:01 AM) Weight 62.8 kg (06/05/21 10:01 AM) Oxygen Saturation [94-100 %] 99 % (06/05/21 10:01 AM) Pulse Rate [55-90 bpm] 121 bpm *H* (06/05/21 10:01 AM) Body Mass Index [18.5-24.99] 23.07 (06/05/21 10:01 AM) Blood Pressure [90-138/55-84 mm Hg] 100/ 70mm Hg (06/05/21 10:01 AM) Blood pressure sites Arm, left (06/05/21 10:01 AM) Social History Social History Type Response Smoking Status Former smoker, quit more than 30 days ago; Other: quit 20 years ago; entered on: 09/24/19 Sex
--- OUTSIDE RECORDS SUMMARY | 2024-05-04 13:19 | XMS_ITS | Continuity of Care Document ---
Author Organization [facility] Address [address] [place] [address]- Care Team Providers Care Livestock Speculator Name Role Phone Declan Muller MD Primary Care Physician Encounter [facility] Date(s): 12/23/21 - 12/30/21 [facility] [address] [place] [address]- Encounter Diagnosis Chronic obstructive lung disease(Discharge Diagnosis) - 12/23/21 Immunodeficiency disorder, hypogammaglobulinemia(Discharge Diagnosis) - 12/23/21 Lumbar compression fracture(Discharge Diagnosis) - 12/23/21 Lumbar radiculopathy(Discharge Diagnosis) - 12/23/21 Hypertension(Discharge Diagnosis) - 12/23/21 Hyperglycemia(Discharge Diagnosis) - 12/23/21 GERD - Gastro-esophageal reflux disease(Discharge Diagnosis) - 12/23/21 ALOK (obstructive sleep apnea)(Discharge Diagnosis) - 12/23/21 Attending Physician: Declan Muller MD Allergies, Adverse [...] 12 08/19/08 Given 1Result Comment: DONE AT [facility] 2Result Comment: [06/22/2018] given at [facility] 3Location History: [facility] 4Location History: [facility] 5Admin Note: done @ clinic 6Admin Note: given w/out incident/VIS given 7Result Comment: [id number], [id number] [facility] 9Result Comment: [07/21/2014] given w/out incident 10Admin Note: [facility] INFO GIVEN TO PATIENT 11Result Comment: lot #[id number] 12Admin Note: [facility] albuterol 0.083% inhalation solution 3 mL = 2.5 mg, Inhalation, Every 6 hours, PRN for wheezing, # 360 mL, 8 Refills, Maintenance, 07/07/19 14:14:00 EDT, Solution, ICD 10 J44.9, PLEASE BILL THROUGH MED B [id number] Start Date: 07/07/19 Status: Ordered alendronate 70 mg oral tablet 1 tablet = 70 mg, By Mouth, Every week, # 4 tablet, 0 Refills, Maintenance, 04/02/20 11:08:00 EDT, Tablet Start Date: 04/02/20 Status: Ordered Ativan 1 mg oral tablet 1 tablet = 1 mg, By Mouth, 3 times a day, PRN for anxiety, # 84 each, 0 Refills, Acute 12/02/22 16:09:00 EST, 12/02/21 16:09:00 EST, Tablet, [facility]/pharmacy #2025, 165, cm, 10/25/21 17:56:00 EST, Height, 54.5, kg, 10/25/21 17:05:00 EST, Dry Weight Start Date: 12/02/21 Stop Date: 12/02/22 Status: Ordered azithromycin 250 mg oral tablet See Instructions, 1 tablet By Mouth Daily on thursday, thursday, and thursday, # 12 each, 11 Refills, Maintenance, 07/16/21 15:56:00 EDT, [facility]/pharmacy #2024, Partial fill upon patient request if the prescription is for a schedule II opioid drug., 165, cm... Start Date: 07/16/21 Status: Ordered Brovana 15 mcg/2 mL inhalation solution 1 each, Neb, 2 times a day, not to exceed 2 doses/day do not swallow, # 60 each, 1 Refills, Maintenance, 04/24/20 16:53:00 EDT, Solution, [facility]/pharmacy #2024, ICD Code J44.9, 165, cm, 03/12/20 8:39:00EDT, Height, 70.7, kg, 03/08/20 16:16:00 EDT, Dry... Start Date: 04/24/20 Status: Ordered budesonide 0.25 mg/2 mL inhalation suspension 0.25 mg, 2, mL, Neb, 2 times a day, for COPD J44.9. rinse mouth after use, # 120 mL, Refills 6, Tot. Refills 6, Maintenance, 03/06/20 11:34:00 EDT, Suspension, Route to Pharmacy Electronically, [id number], [facility]/pharmacy #2024,... Start Date: 03/06/20 Status: Ordered calcium-vitamin D 600 mg-400 intl units oral tablet See Instructions, 1 tablet By Mouth twice daily, # 60 tablet, 11 Refills, Maintenance, 10/28/21 10:33:00 EST, Tablet, [facility]/pharmacy #2024, 1 tablet By Mouth twice daily, 165, cm, 10/25/21 17:56:00 EST, Height, 54.5, kg, 10/25/21 17:05:00 EST, Dry Weight Start Date: 10/28/21 Status: Ordered cefdinir 300 mg oral capsule 1 capsule = 300 mg, By Mouth, Every 12 hours, for 7 days, # 14 capsule, 0 Refills, Acute 01/03/22 13:29:00 EDT, 12/27/21 13:29:00 EST, Capsule, [facility]/pharmacy #202, Partial fill upon patient request if the prescription is for a schedule II opioid drug.... Start Date: 12/27/21 Stop Date: 01/03/22 Status: Ordered Citrate of Magnesia 8.85% oral liquid See Instructions, 30 mL By Mouth Once daily as needed for constipation, # 300 mL, 1 Refills, Soft Stop, 10/02/21 17:13:00 EST, Liquid, [facility]/pharmacy #202, Partial fill upon patient request if the prescription is for a schedule II opioid drug., 30 mL B... Start Date: 10/02/21 Status: Ordered cyclobenzaprine 10 mg oral tablet 1, tablet, By Mouth, Daily, PRN, # 30 tablet, Refills 11, Tot. Refills 11, Physician Stop 12/02/22 16:09:00 EST, NEEDED FOR PAIN, 12/02/21 16:09:00 EST, Route to Pharmacy Electronically, [facility]/pharmacy #2024, 165, cm, 10/25/21 17:56:00 EST, Height, 5... Start Date: 12/02/21 Stop Date: 12/02/22 Status: Ordered docusate sodium 100 mg oral capsule 2 capsule, By Mouth, 2 times a day, PRN NEEDED FOR CONSTIPATION FOR, # 120 capsule, 5 Refills, Maintenance, 12/30/21 10:25:00 EDT, [facility]/pharmacy #2024, 165, cm, 12/23/21 9:22:00 EST, Height, 54.5, kg, 10/25/21 17:05:00 EST, Dry Weight Start Date: 12/30/21 Stop Date: 06/28/22 Status: Ordered duloxetine 20 mg oral enteric coated capsule 1 capsule = 20 mg, By Mouth, Daily, # 30 capsule, 11 Refills, Maintenance, 07/16/21 15:55:00 EDT, Capsule, [facility]/pharmacy #202, Partial fill upon patient request if the prescription is for a schedule II opioid drug., 165, cm, 06/05/21 10:01:00 EDT, Hei... Start Date: 07/16/21 Status: Ordered gabapentin 400 mg oral capsule 1, capsule, By Mouth, 3 times a day, # 90 each, Refills 11, Tot. Refills 11, Maintenance, 09/09/21 11:35:00 EST, Route to Pharmacy Electronically, [facility]/pharmacy #2024, dose increase, refill when needed, 165, cm, 09/09/21 11:19:00 EST, Height, 61.4, kg,... Start Date: 09/09/21 Status: Ordered methadone 10 mg oral tablet See Instructions, PRN for pain, 2 tablets By Mouth in the morning, 1 tablet in the afternoon, and 3tablets by mouth in the evening 28 day schedule, # 168 each, 0 Refills, Acute 12/02/22 15:11:00 EST, 12/02/21 15:11:00 EST, Tablet, [facility]/pharmacy #20... Start Date: 12/02/21 Stop Date: 12/02/22 Status: Ordered oxyCODONE 10 mg oral tablet 2 tablet = 20 mg, By Mouth, Every 4 hours, PRN as needed for pain, 28 day prescription patient may fill for less than quantity prescribed, # 224 tablet, 0 Refills, Acute 12/02/22 15:12:00 EST, 12/02/21 15:12:00 EST, Tablet, [facility]/pharmacy #2024, refill... Start Date: 12/02/21 Stop Date: 12/02/22 Status: Ordered pantoprazole 40 mg oral delayed release tablet 1 tablet, By Mouth, Daily, PRN NEEDED FOR STOMACH PAIN, # 90 tablet, 3 Refills, 165, cm, 06/05/21 10:01:00 EDT, Height, 61.4, kg, 03/15/21 10:38:00 EDT, Dry Weight Start Date: 08/16/21 Status: Ordered predniSONE 10 mg oral tablet See Instructions, 1-2 tablet By Mouth Daily as directed, # 60 each, 0 Refills, Maintenance, 12/23/21 9:46:00 EST, [facility]/pharmacy #2025, Partial fill upon patient request if the prescription is for a schedule II opioid drug., 165, cm, 12/23/21 9:22:00 ES... Start Date: 12/23/21 Status: Ordered Prolia 60 mg/mL subcutaneous solution [...] 10 J44.9, PLEASE BILL THROUGH MED B [id number], 165, cm, 06/05/21 10:01:00 EDT, Height, 61.4, [...] Informant Chronic obstructive lung disease Discharge Diagnosis 12/23/21 Immunodeficiency disorder, hypogammaglobulinemia Discharge Diagnosis 12/23/21 Lumbar compression fracture Discharge Diagnosis 12/23/21 Lumbar radiculopathy Discharge Diagnosis 12/23/21 Hypertension Discharge Diagnosis 12/23/21 Hyperglycemia Discharge Diagnosis 12/23/21 GERD - Gastro-esophageal reflux disease Discharge Diagnosis 12/23/21 ALOK (obstructive sleep apnea) Discharge Diagnosis 12/23/21 Vital Signs Most recent to oldest [Reference Range]: 1 Height 165 cm (12/23/21 9:22 AM) Weight 56.9 kg (12/23/21 9:22 AM) Oxygen Saturation [94-100 %] 94 % (12/23/21 9:22 AM) Pulse Rate [55-90 bpm] 113 bpm *H* (12/23/21 9:22 AM) Body Mass Index [18.5-24.99] 20.9 (12/23/21 9:22 AM) Blood Pressure [90-138/55-84 mm Hg] 112/ 78mm Hg (12/23/21 9:22 AM) Blood pressure sites Arm, left (12/23/21 9:22 AM) Social History Social History Type Response Smoking Status Former smoker, quit more than 30 days ago; Other: quit 20 years ago; entered on: 09/24/19 Sex
--- OUTSIDE RECORDS SUMMARY | 2024-05-04 13:19 | XMS_ITS | Continuity of Care Document ---
Author Organization [facility] Address [address] [address]- Care Team Providers Care Director Of Development Name Role Phone Declan Muller MD Primary Care Physician Encounter [facility] Date(s): 05/21/20 - 05/28/[address] [address]- [place] Attending Physician: Vi Cummings Admitting Physician: Vi Cummings Referring Physician: Declan Muller MD Allergies, Adverse [...] Note: given w/out incident/VIS given 7Result Comment: [id number], [id number] [facility] 9Result Comment: [07/21/2014] given w/out incident 10Admin Note: [facility] INFO GIVEN TO PATIENT 11Result Comment: lot #[id number] 12Admin Note: [facility] albuterol 0.083% inhalation solution 3 mL = 2.5 mg, Inhalation, Every 6 hours, PRN for wheezing, # 360 mL, 8 Refills, Maintenance, 07/07/19 14:14:00 EDT, Solution, ICD 10 J44.9, PLEASE BILL THROUGH MED B [id number] Start Date: 07/07/19 Status: Ordered alendronate 70 [...] 11:34:00 EDT, Suspension, Route to Pharmacy Electronically, [id number], [facility]/pharmacy #5,... Start Date: 03/06/20 Status: Ordered calcium-vitamin D [...] Replace Required Details, Route to Pharmacy Electronically, [facility]/pharmacy #2024... Start Date: 03/02/20 Status: Ordered duloxetine 20 mg oral enteric coated capsule 1 capsule = 20 mg, By Mouth, Daily, 0 Refills, Maintenance, 04/02/20 9:18:00 EDT Start Date: 04/02/20 Status: Ordered gabapentin 400 mg oral capsule 400 mg, 1, capsule, By Mouth, 2 times a day, # 60 each, Refills 11, Tot. Refills 11, Maintenance, 02/22/20 10:31:00 EDT, Route to Pharmacy Electronically, [facility]/pharmacy #2024, 165, cm, 01/27/20 8:11:00 EDT, Height, 53.6, kg, 10/14/19 10:56:00 EST, Dry... Start Date: 02/22/20 Status: Ordered lactulose 10 gm/15 ml oral syrup 30 mL = 20 Gm, By Mouth, Daily, PRN as needed for constipation, for 30 days, # 1,000 mL, 2 Refills,Acute 08/15/20 16:25:00 EDT, 05/17/20 16:25:00 EDT, Syrup, [facility]/pharmacy #2025, 30 mL By Mouth Daily,x30 days,PRN:as [...] 06/18/20 17:00:00 EDT, 05/21/20 10:23:00 EDT, Tablet, [facility]/pharmacy #20... Start Date: 05/21/20 Stop Date: 06/18/20 Status: Ordered oxyCODONE 10 mg oral tablet 2 tablet = 20 mg, By Mouth, Every 4 hours, PRN as needed for pain, 28 day prescription patient may fill for less than quantity prescribed, # 224 tablet, 0 Refills, Acute 06/18/20 17:00:00 EDT, 05/21/20 10:23:00 EDT, Tablet, [facility]/pharmacy #2025, 165, c... Start Date: 05/21/20 Stop [...] Refills, Acute, 05/22/20 11:58:00 EDT, [id number], 165, cm, 05/17/20 16:00:00 EDT, Height, 67, kg, 05/01/20 10:40:00 EDT, Dry Weight Start Date: 05/22/20 Status: Ordered Readi-Cat 2 oral suspension See Instructions, As per recommendations of radiology 1 the evening before when the morning of procedure, # 2 pack/packet, 0 Refills, Maintenance, 05/17/20 16:25:00 EDT, [facility]/pharmacy #2024, As per recommendations of radiology 1 the [...] Maintenance, 03/02/2017:09:00 EDT, Route to Pharmacy Electronically, [facility]/pharmacy #2024 Tablet, 165, cm, 01/27/20 8:11:00 EDT, Height, 53.6, kg, 10/14/19 10:56:00 EST, Dry... Start Date: 03/02/20 Status: Ordered triamcinolone 0.1% topical cream 1 application, Topically, 3 times a day, PRN psoriasis rash, # 60 Gm, 5 Refills, Acute 01/01/21 10:47:00 EDT, 01/02/20 10:46:00 EDT, Cream, [facility]/pharmacy #2024, 1 application Topically 3 times a day,PRN:psoriasis rash, 165, cm, 11/17/19 10:08:00 EST, H... Start Date: 01/02/20 Stop Date: 01/01/21 Status: Ordered Ventolin HFA 108 mcg/inh inhalation aerosol with adapter 2 puffs, Inhalation, 4 times a day, PRN for wheezing, # 18 Gm, 11 Refills, Maintenance, 01/13/20 11:40:00 EDT, Aerosol, [facility]/pharmacy #2024, 165, cm, 11/17/19 10:08:00 EST, Height, 53.6, kg, 10/14/19 10:56:00 EST, Dry Weight Start Date: 01/13/20 Status: Ordered Yupelri 175 mcg/3 mL inhalation solution = 175 mcg, Inhalation, Daily, j44.9, # 360 mL, 6 Refills, Maintenance, 03/06/20 11:37:00 EDT, [facility], ICD 10 J44.9, PLEASE BILL THROUGH MED B [id number], 165, cm, 01/27/20 8:11:00 EDT, Height, 53.6, [...]
--- OUTSIDE RECORDS SUMMARY | 2024-05-04 13:19 | XMS_ITS | Continuity of Care Document ---
Author Organization [facility] Address [address] [place] [address]- Care Team Providers Care V Belt Mold Assembler And Curer Name Role Phone Renzo GRAHAM, Declan Hou Primary Care Physician Encounter [facility] Date(s): 09/24/23 - 10/24/23 [facility] [address] [place], [place] [address] Allergies, Adverse Reactions, Alerts Substance Reaction [...] Vaccine (oldterm) 13 08/19/08 Given 1Result Comment: [facility] [id number] 2Result Comment: [06/22/2018] given at [facility] 3Location History: [facility] 4Location History: [facility] 5Admin Note: done @ clinic 6Admin Note: given w/out incident/VIS given 7Result Comment: [id number], [id number] 8Result Comment: DONE AT [facility] 10Result Comment: [07/21/2014] given w/out incident 11Admin Note: [facility] INFO GIVEN TO PATIENT 12Result Comment: lot #[id number] 13Admin Note: [facility] albuterol 0.083% inhalation solution 3 mL = 2.5 mg, Inhalation, Every 6 hours, PRN for wheezing, # 360 mL, 8 Refills, Maintenance, 07/07/19 14:14:00 EDT, Solution, ICD 10 J44.9, PLEASE BILL THROUGH MED B [id number] Start Date: 07/07/19 Status: Ordered albuterol 90 [...] 11:34:00 EDT, Suspension, Route to Pharmacy Electronically, [id number], [facility]/pharmacy #2024,... Start Date: 03/06/20 Status: Ordered calcium-vitamin D 600 mg-400 intl units oral tablet 1 tablet, By Mouth, 2 times a day, # 180 tablet, 1 Refills, Maintenance, 10/07/22 11:54:00 EST, [id number], 90, TAKE 1 TABLET BY MOUTH TWICE [...] 09/24/23 14:08:00 EST, Route to Pharmacy Electronically, [facility]/pharmacy #2024, 165, cm, 09/04/23 8:51:00 EST, Height,... [...] 11 Refills,Maintenance, 09/30/23 11:27:00 EST, EC Tablet, [facility]/pharmacy #2025, Partial fill upon patient request if [...] capsule, 11 Refills, Maintenance, 03/03/23 10:03:00 EDT, [facility]/pharmacy #2025, 165, cm, 01/21/23 10:40:00 EDT, Height, 55.8, kg, 01/23/23 8:24:00 EDT, Dry Weight Start Date: 03/03/23 Stop Date: 02/26/24 Status: Ordered duloxetine 30 mg oral enteric coated capsule 1 capsule = 30 mg, By Mouth, Daily, # 30 capsule, 11 Refills, Maintenance, 09/14/23 16:34:00 EST, Capsule, [facility]/pharmacy #202, Partial fill upon patient request if the prescription is for a schedule II opioid drug., 165, cm, 09/04/23 8:51:00 EST, .. Start Date: 09/14/23 Status: Ordered gabapentin 400 mg oral capsule 1, capsule, By Mouth, 3 times a day, # 90 capsule, Refills 11, Maintenance, 10/07/22 13:28:00 EST, Route to Pharmacy Electronically, [id number], 165, cm, 08/26/22 11:06:00 EST, Height, 64.7, [...] Refills, Maintenance, 10/15/22 9:58:00 EST, [facility], 165, cm, 10/09/22 11:32:00 EST, Height, 64.7, [...] 09/24/24 14:08:00 EST, 09/24/23 14:07:00 EST, Tablet, [facility]/pharmacy #20... Start Date: 09/24/23 Stop Date: 09/24/24 Status: Ordered nystatin 373945 u/ml oral suspension 5 mL, By Mouth, [...] 10 J44.9, PLEASE BILL THROUGH MED B [id number], 165, cm, 06/05/21 10:01:00 EDT, Height, 61.4, [...] Team Personnel Name: Jonathan , Joelle Position: [facility] Onco RN Member Role: Primary Care Nurse Name: Shawnee Schafer RN Position: [facility] SN RN Member Role: Primary Care Nurse Name: Declan Muller MD Position: [facility] Physician - Primary Care Member Role: PCP Address: Address: [address] [place] [address] Adult & Pediatric Medicine [place], [place] [address] Name: Aylin Byrne RN Position: [facility] RN Member Role: Primary Care Nurse Name: Edilma Metzger RN Position: [facility] RN Member Role: Primary Care Nurse Name: Katherine Bond RN Position: [facility] SN RN Member Role: Primary Care Nurse Name: Gena Chavez RN Position: [facility] grill associate Member Role: Client Success Specialist Name: Kerry Negron RN Position: [facility] RN Member Role: Primary Care Nurse Name: Joslyn Dodge RN Position: [facility] SN RN Member Role: Primary Care Nurse Name: Missy Avilez RN Position: [facility] Onco RN Member Role: Primary Care Nurse Name: Katina Marcus RN Position: [facility] RN Member Role: Primary Care Nurse Name: Sienna Horne RN Position: [facility] RN Member Role: Primary Care Nurse Name: Ernestine Thomas RN Position: [facility] RN Member Role: Primary Care Nurse Care Team Related Persons Name: JANICE TAYLOR Address: [address] [address]
--- OUTSIDE RECORDS SUMMARY | 2024-05-04 13:19 | XMS_ITS | Continuity of Care Document ---
Author Organization [facility] Address [address] [place] [address]- Care Team Providers Care Parimutuel Clerk Name Role Phone Declan Muller MD Primary Care Physician Encounter [facility] Date(s): 04/18/20 - 05/18/20 [facility] [address] [place] [address]- [facility] Allergies, Adverse Reactions, Alerts Substance Reaction Severity [...] Note: given w/out incident/VIS given 7Result Comment: [id number], [id number] [facility] 9Result Comment: [07/21/2014] given w/out incident 10Admin Note: [facility] INFO GIVEN TO PATIENT 11Result Comment: lot #[id number] 12Admin Note: [facility] albuterol 0.083% inhalation solution 3 mL = 2.5 mg, Inhalation, Every 6 hours, PRN for wheezing, # 360 mL, 8 Refills, Maintenance, 07/07/19 14:14:00 EDT, Solution, ICD 10 J44.9, PLEASE BILL THROUGH MED B [id number] Start Date: 07/07/19 Status: Ordered alendronate 70 [...] 11:34:00 EDT, Suspension, Route to Pharmacy Electronically, [id number], [facility]/pharmacy #2024,... Start Date: 03/06/20 Status: Ordered [...] 04/23/20 15:59:00 EDT, Route to Pharmacy Electronically, [facility]/pharmacy #2024, 165, cm, 03/12/20 8:39:00 EDT, Height, [...] Replace Required Details, Route to Pharmacy Electronically, [facility]/pharmacy #2024... Start Date: 03/02/20 Status: Ordered doxycycline hyclate 100 mg oral capsule 1 capsule = 100 mg, By Mouth, 2 times a day, for 10 days, # 20 capsule, 0 Refills, Acute 05/19/20 10:10:00 EDT, 05/09/20 10:10:00 EDT, Capsule, [facility]/pharmacy #202, 165, cm, 05/01/20 10:40:00 EDT, Height, 67, kg, 05/01/20 10:40:00 EDT, Dry Weight Start Date: 05/09/20 Stop Date: 05/19/20 Status: Ordered duloxetine 20 mg oral enteric coated capsule 1 capsule = 20 mg, By Mouth, Daily, 0 Refills, Maintenance, 04/02/20 9:18:00 EDT Start Date: 04/02/20 Status: Ordered gabapentin 400 mg oral capsule 400 mg, 1, capsule, By Mouth, 2 times a day, # 60 each, Refills 11, Tot. Refills 11, Maintenance, 02/22/20 10:31:00 EDT, Route to Pharmacy Electronically, [facility]/pharmacy #2024, 165, cm, 01/27/20 8:11:00 EDT, Height, 53.6, kg, 10/14/19 10:56:00 EST, Dry... Start Date: 02/22/20 Status: Ordered lactulose 10 gm/15 ml oral syrup 30 mL = 20 Gm, By Mouth, Daily, PRN as needed for constipation, for 30 days, # 1,000 mL, 2 Refills,Acute 08/15/20 16:25:00 EDT, 05/17/20 16:25:00 EDT, Syrup, [facility]/pharmacy #5, 30 mL By Mouth Daily,x30 days,PRN:as needed [...] 05/22/20 17:00:00 EDT, 04/23/20 9:58:00 EDT, Tablet, [facility]/pharmacy #202... Start Date: 04/23/20 Stop Date: 05/22/20 Status: Ordered oxyCODONE 10 mg oral tablet 2 tablet = 20 mg, By Mouth, Every 4 hours, PRN as needed for pain, 28 day prescription patient may fill for less than quantity prescribed, # 224 tablet, 0 Refills, Acute 05/22/20 17:00:00 EDT, 04/23/20 9:58:00 EDT, Tablet, [facility]/pharmacy #2024, 165, cm... Start Date: 04/23/20 Stop Date: [...] each, 11 Refills,Maintenance, 04/02/20 11:09:00 EDT, Tablet, [facility]/pharmacy #2024, 165, cm, 03/12/20 8:39:00 EDT, Height, 70.7, kg, 03/08/20 16:16:00 EDT, Dry Weight Start Date: 04/02/20 Status: Ordered Readi-Cat 2 oral suspension See Instructions, As per recommendations of radiology 1 the evening before when the morning of procedure, # 2 pack/packet, 0 Refills, Maintenance, 05/17/20 16:25:00 EDT, [facility], As per recommendations of radiology 1 [...] Maintenance, 03/02/2017:09:00 EDT, Route to Pharmacy Electronically, [facility]/pharmacy #5 Tablet, 165, cm, 01/27/20 8:11:00 EDT, Height, 53.6, kg, 10/14/19 10:56:00 EST, Dry... Start Date: 03/02/20 Status: Ordered triamcinolone 0.1% topical cream 1 application, Topically, 3 times a day, PRN psoriasis rash, # 60 Gm, 5 Refills, Acute 01/01/21 10:47:00 EDT, 01/02/20 10:46:00 EDT, Cream, [facility]/pharmacy #2024, 1 application Topically 3 times [...] 6 Refills, Maintenance, 03/06/20 11:37:00 EDT, [facility], ICD 10 J44.9, PLEASE BILL THROUGH MED B [id number], 165, cm, 01/27/20 8:11:00 EDT, Height, 53.6, [...]
--- OUTSIDE RECORDS SUMMARY | 2024-05-04 13:19 | XMS_ITS | Continuity of Care Document ---
Author Organization [facility] Address [address] [facility], [address] d Floor, [address] [place] [address]- Care Team Providers Care Center Director Lead Teacher Name Role Phone Declan Muller MD Primary Care Physician [phone] Encounter [facility] Date[facility]s): 12/11/20 - 12/18/20 [facility] [address], 3[address] Floor, [address] [place] [id number] Attending Physician: Not on Staff, Attending MD Referring Physician: Declan Muller MD Allergies, Adverse [...] Note: given w/out incident/VIS given 7Result Comment: [id number], [id number] [facility] 9Result Comment: [07/21/2014] given w/out incident 10Admin Note: CDC INFO GIVEN TO PATIENT 11Result Comment: lot #[id number] 12Admin Note: [facility] albuterol 0.083% inhalation solution 3 mL = 2.5 mg, Inhalation, Every 6 hours, PRN for wheezing, # 360 mL, 8 Refills, Maintenance, 07/07/19 14:14:00 EDT, Solution, ICD 10 J44.9, PLEASE BILL THROUGH MED B [id number] Start Date: 07/07/19 Status: Ordered alendronate 70 mg oral tablet 1 tablet = 70 mg, By Mouth, Every week, # 4 tablet, 0 Refills, Maintenance, 04/02/20 11:08:00 EDT, Tablet Start Date: 04/02/20 Status: Ordered Ativan 1 mg oral tablet 1 tablet = 1 mg, By Mouth, 3 times a day, PRN for anxiety, # 84 each, 0 Refills, Acute 12/28/20 17:00:00 EST, 11/30/20 8:45:00 EST, [facility]t, [facility], 165, cm, 05/17/20 16:00:00 EDT, Height,66.5, kg, 09/21/20 8:46:00 EST, Dry Weight Start Date: 11/30/20 Stop Date: 12/28/20 Status: Ordered Brovana 15 mcg/2 mL inhalation [...] 11:34:00 EDT, Suspension, Route to Pharmacy Electronically, [id number], [facility]/pharmacy #2024,... Start Date: 03/06/20 Status: Ordered calcium-vitamin D 600 mg-400 intl units oral tablet See Instructions, 1 tablet By Mouth twice daily, # 60 tablet, 11 Refills, Maintenance, 07/04/20 15:50:00 EDT, Tablet, [facility]/pharmacy #2024, 1 tablet By Mouth twice [...] 11/21/20 12:23:00 EST, Route to Pharmacy Electronically, [facility]/pharmacy #2024, 165, cm, 05/17/20 16:00:00 EDT, Height, 66.5,... Start Date: 11/21/20 Stop Date: 11/21/21 Status: Ordered docusate sodium 100 mg oral capsule 2 capsule, By Mouth, 2 times a day, PRN NEEDED FOR CONSTIPATION FOR, # 120 capsule, 11 Refills, Maintenance, 11/21/20 16:36:00 EST, [facility] STORE 47[facility], 165, cm, 05/17/20 16:00:00 EDT, Height, 66.5, [...] 02/22/20 10:31:00 EDT, Route to Pharmacy Electronically, [facility]/pharmacy #202, 165, cm, 01/27/20 8:11:00 EDT, Height, 53.6, kg, 10/14/19 10:56:00 EST, Dry... Start Date: 02/22/20 Status: Ordered losartan 50 mg oral tablet 50 mg, 1, tablet, By Mouth, Daily, # 30 tablet, Refills 6, Tot. Refills 6, Maintenance, 10/05/20 10:44:00 EST, Route to Pharmacy Electronically, [facility]/pharmacy #202, Partial fill upon patient request if the prescription is for a schedule II opioid drug... Start Date: 10/05/20 Stop Date: 05/03/21 Status: Ordered methadone 10 mg oral tablet See Instructions, PRN for pain, 2 tablets By Mouth in the morning, 1 tablet in the afternoon, and 3tablets by mouth in the evening 28 day schedule, # 168 each, 0 Refills, Acute 12/28/20 17:00:00 EST, 11/30/20 8:45:00 EST, Tablet, [facility] Start Date: 11/30/20 Stop Date: 12/28/20 Status: Ordered naproxen 500 mg oral tablet [...] prescribed, # 224 tablet, 0 Refills, Acute 12/28/20 17:00:00 EST, 11/30/20 8:45:00 EST, Tablet, [facility], refill... Start Date: 11/30/20 Stop Date: 12/28/20 Status: Ordered pantoprazole 40 mg oral delayed [...] Refills, Acute, 05/22/20 11:58:00 EDT, [facility], 165, cm, 05/17/20 16:00:00 EDT, Height, 67, [...] Maintenance, 03/02/2017:09:00 EDT, Route to Pharmacy Electronically, [facility]/pharmacy #2024 Tablet, 165, cm, 01/27/20 8:11:00 EDT, Height, 53.6, kg, 10/14/19 10:56:00 EST, Dry... Start Date: 03/02/20 Status: Ordered triamcinolone 0.1% topical cream 1 application, Topically, 3 times a day, PRN psoriasis rash, # 60 Gm, 5 Refills, Acute 01/01/21 10:47:00 EDT, 01/02/20 10:46:00 EDT, Cream, [facility]/pharmacy #2024, 1 application Topically 3 times a day,PRN:psoriasis rash, 165, cm, 11/17/19 10:08:00 EST, H... Start Date: 01/02/20 Stop Date: 01/01/21 Status: Ordered Ventolin HFA 108 mcg/inh inhalation aerosol with adapter 2 puffs, Inhalation, 4 times a day, PRN for wheezing, # 18 Gm, 11 Refills, Maintenance, 01/13/20 11:40:00 EDT, Aerosol, [facility]/pharmacy #2024, 165, cm, 11/17/19 10:08:00 EST, Height, 53.6, kg, 10/14/19 10:56:00 EST, Dry Weight Start Date: 01/13/20 Status: Ordered Yupelri 175 mcg/3 mL inhalation solution = 175 mcg, Inhalation, Daily, j44.9, # 360 mL, 6 Refills, Maintenance, 03/06/20 11:37:00 EDT, [facility]/pharmacy #2024, ICD 10 J44.9, PLEASE BILL THROUGH MED B [id number], 165, cm, 01/27/20 8:11:00 EDT, Height, 53.6, kg, 10/14/19 10:56:00 EST, Dry Weight Start Date: 03/06/20 Status: Ordered Zithromax 250 mg oral tablet See Instructions, 1 tablet By Mouth Daily on thursday, thursday, and thursday, # 12 tablet, 11 Refills, Maintenance, 07/11/20 12:50:00 EDT, Tablet, [facility]/pharmacy #2024, 165, cm, 05/17/20 16:00:00 EDT, [...]
--- OUTSIDE RECORDS SUMMARY | 2024-05-04 13:19 | XMS_ITS | Continuity of Care Document ---
Author Organization [facility] Address [address] [place] [address]- Care Team Providers Care Truck Safety Inspector Name Role Phone Renzo GRAHAM, Declan Hou Primary Care Physician [facility] Date[facility]s): 05/09/20 - 06/08/20 [facility] [address] [place] [address]- [facility] Allergies, Adverse Reactions, Alerts Substance Reaction Severity [...] Note: given w/out incident/VIS given 7Result Comment: [id number], [id number] [facility] 9Result Comment: [07/21/2014] given w/out incident 10Admin Note: [facility] INFO GIVEN TO PATIENT 11Result Comment: lot #[id number] 12Admin Note: [facility] albuterol 0.083% inhalation solution 3 mL = 2.5 mg, Inhalation, Every 6 hours, PRN for wheezing, # 360 mL, 8 Refills, Maintenance, 07/07/19 14:14:00 EDT, Solution, ICD 10 J44.9, PLEASE BILL THROUGH MED B [id number] Start Date: 07/07/19 Status: Ordered alendronate 70 [...] 11:34:00 EDT, Suspension, Route to Pharmacy Electronically, [id number], [facility]/pharmacy #2024,... Start Date: 03/06/20 [...] Replace Required Details, Route to Pharmacy Electronically, [facility]/pharmacy #2024... Start Date: 03/02/20 Status: Ordered duloxetine 20 mg oral enteric coated capsule 1 capsule = 20 mg, By Mouth, Daily, 0 Refills, Maintenance, 04/02/20 9:18:00 EDT Start Date: 04/02/20 Status: Ordered gabapentin 400 mg oral capsule 400 mg, 1, capsule, By Mouth, 2 times a day, # 60 each, Refills 11, Tot. Refills 11, Maintenance, 02/22/20 10:31:00 EDT, Route to Pharmacy Electronically, [facility]/pharmacy #2024, 165, cm, 01/27/20 8:11:00 EDT, Height, 53.6, kg, 10/14/19 10:56:00 EST, Dry... Start Date: 02/22/20 Status: Ordered lactulose 10 gm/15 ml oral syrup 30 mL = 20 Gm, By Mouth, Daily, PRN as needed for constipation, for 30 days, # 1,000 mL, 2 Refills,Acute 08/15/20 16:25:00 EDT, 05/17/20 16:25:00 EDT, Syrup, [facility]/pharmacy #2025, 30 mL By Mouth Daily,x30 [...] 06/18/20 17:00:00 EDT, 05/21/20 10:23:00 EDT, Tablet, [facility]/pharmacy #20... Start Date: 05/21/20 Stop Date: 06/18/20 Status: Ordered oxyCODONE 10 mg oral tablet 2 tablet = 20 mg, By Mouth, Every 4 hours, PRN as needed for pain, 28 day prescription patient may fill for less than quantity prescribed, # 224 tablet, 0 Refills, Acute 06/18/20 17:00:00 EDT, 05/21/20 10:23:00 EDT, Tablet, [facility]/pharmacy #5, 165, c... Start Date: 05/21/20 Stop [...] Refills, Acute, 05/22/20 11:58:00 EDT, [facility], 165, cm, 05/17/20 16:00:00 EDT, Height, 67, [...] Maintenance, 03/02/2017:09:00 EDT, Route to Pharmacy Electronically, [facility]/pharmacy #2024 Tablet, 165, cm, 01/27/20 8:11:00 EDT, Height, 53.6, kg, 10/14/19 10:56:00 EST, Dry... Start Date: 03/02/20 Status: Ordered triamcinolone 0.1% topical cream 1 application, Topically, 3 times a day, PRN psoriasis rash, # 60 Gm, 5 Refills, Acute 01/01/21 10:47:00 EDT, 01/02/20 10:46:00 EDT, Cream, [facility]/pharmacy #2024, 1 application Topically 3 times a day,PRN:psoriasis rash, 165, cm, 11/17/19 10:08:00 EST, H... Start Date: 01/02/20 Stop Date: 01/01/21 Status: Ordered Ventolin HFA 108 mcg/inh inhalation aerosol with adapter 2 puffs, Inhalation, 4 times a day, PRN for wheezing, # 18 Gm, 11 Refills, Maintenance, 01/13/20 11:40:00 EDT, Aerosol, [facility]/pharmacy #2024, 165, cm, 11/17/19 10:08:00 EST, Height, 53.6, kg, 10/14/19 10:56:00 EST, Dry Weight Start Date: 01/13/20 Status: Ordered Yupelri 175 mcg/3 mL inhalation solution = 175 mcg, Inhalation, Daily, j44.9, # 360 mL, 6 Refills, Maintenance, 03/06/20 11:37:00 EDT, [facility]/pharmacy #2024, ICD 10 J44.9, PLEASE BILL THROUGH MED B [id number], 165, cm, 01/27/20 8:11:00 EDT, Height, 53.6, [...]
--- OUTSIDE RECORDS SUMMARY | 2024-05-04 13:19 | XMS_ITS | Continuity of Care Document ---
Author Organization [facility] Address [address] [place] [address]- Care Team Providers Care Frame Wirer Name Role Phone Renzo GRAHAM, Declan Hou Primary Care Physician [phone] [facility] Date(s): 12/24/22 - 01/23/23 [facility] [address] [place], [place] [address] Allergies, Adverse Reactions, Alerts Substance [...] Vaccine (oldterm) 13 08/19/08 Given 1Result Comment: [facility] [id number] 2Result Comment: [06/22/2018] given at [facility] 3Location History: [facility] 4Location History: [facility] 5Admin Note: done @ clinic 6Admin Note: given w/out incident/VIS given 7Result Comment: [id number], [id number] 8Result Comment: DONE AT [facility] 10Result Comment: [07/21/2014] given w/out incident 11Admin Note: [facility] INFO GIVEN TO PATIENT 12Result Comment: lot #[id number] 13Admin Note: [facility] albuterol 0.083% inhalation solution 3 mL = 2.5 mg, Inhalation, Every 6 hours, PRN for wheezing, # 360 mL, 8 Refills, Maintenance, 07/07/19 14:14:00 EDT, Solution, ICD 10 J44.9, PLEASE BILL THROUGH MED B [id number] Start Date: 07/07/19 Status: Ordered albuterol 90 mcg/inh inhalation aerosol 0 Refills, Maintenance Start Date: 04/30/20 Status: Ordered Ativan 1 mg oral tablet 1 tablet = 1 mg, By Mouth, 3 times a day, PRN for anxiety, # 84 each, 0 Refills, Acute 01/20/24 13:02:00 EDT, 01/19/23 13:02:00 EDT, Tablet, [facility], 165, cm, 12/16/22 12:53:00 EST, Height, [...] 11:34:00 EDT, Suspension, Route to Pharmacy Electronically, [id number], [facility]/pharmacy #202,... Start Date: 03/06/20 Status: Ordered calcium-vitamin D 600 mg-400 intl units oral tablet 1 tablet, By Mouth, 2 times a day, # 180 tablet, 1 Refills, Maintenance, 10/07/22 11:54:00 EST, [facility], 90, TAKE 1 TABLET BY MOUTH TWICE [...] 11 Refills,Maintenance, 08/19/22 11:00:00 EDT, EC Tablet, [facility]/pharmacy #2025, Partial fill upon patient request if [...] capsule, 5 Refills, Maintenance, 07/30/22 11:39:00 EDT, [facility]/pharmacy #0447, 165, cm, 04/17/22 13:32:00 EDT, Height, 60.6,kg, 04/18/22 8:40:00 EDT, Dry Weight Start Date: 07/30/22 Stop Date: 01/26/23 Status: Ordered duloxetine 30 mg oral enteric coated capsule 1 capsule = 30 mg, By Mouth, Daily, # 30 capsule, 11 Refills, Maintenance, 12/15/22 9:46:00 EST, Capsule, [facility]/pharmacy #2025, Partial fill upon patient request if the prescription is for a schedule II opioid drug., 165, cm, 10/09/22 11:32:00 EST, .. Start Date: 12/15/22 Status: Ordered gabapentin 400 mg oral capsule 1, capsule, By Mouth, 3 times a day, # 90 capsule, Refills 11, Maintenance, 10/07/22 13:28:00 EST, Route to Pharmacy Electronically, [facility], 165, cm, 08/26/22 11:06:00 EST, Height, 64.7, [...] Refills, Maintenance, 10/15/22 9:58:00 EST, [facility], 165, cm, 10/09/22 11:32:00 EST, Height, 64.7, [...] 01/20/24 13:03:00 EDT, 01/19/23 13:03:00 EDT, Tablet, [facility] Start Date: 01/19/23 Stop Date: 01/20/24 Status: Ordered nystatin 167581 u/ml oral suspension 5 mL, By Mouth, 4 times a day, # 480 mL, 1 Refills, [facility], 165, cm, 03/28/22 11:14:00 EDT, Height, 60.4, kg, 03/06/22 10:48:00 EDT, Dry Weight Start Date: 04/17/22 Status: Ordered ondansetron 4 mg oral tablet, disintegrating 1 tablet = 4 mg, By Mouth, Every 6 hours, PRN Nausea & Vomiting, # 20 each, 1 Refills, Acute 12/12/23 16:51:00 EST, 12/12/22 16:50:00 EST, Tablet, [facility], Partial fill upon patient request [...] 01/20/24 13:03:00 EDT, 01/19/23 13:03:00 EDT, Tablet, [facility], refill... Start Date: 01/19/23 Stop Date: [...] 10 J44.9, PLEASE BILL THROUGH MED B [id number], 165, cm, 06/05/21 10:01:00 EDT, Height, 61.4, kg, 03/15/... Start Date: 08/12/21 Status: Ordered ZyrTEC 10 mg oral tablet 1 tablet = 10 mg, By Mouth, Daily, PRN Sinus Symptoms, # 30 tablet, 11 Refills, Maintenance, 01/21/23 11:04:00 EDT, Tablet, [facility], 165, cm, 01/21/23 10:40:00 EDT, Height, [...] Care Team Personnel Name: Joelle Castillo Position: [facility] Onco RN Member Role: Primary Care Nurse Name: Marilee Pitts RN Position: [facility] RN Member Role: Primary Care Nurse Name: Shawnee Schafer RN Position: [facility] SN RN Member Role: Primary Care Nurse Name: Declan Muller MD Position: [facility] Primary Care Physician Member Role: PCP Address: Address: [address] [place] [address] Adult & Pediatric Medicine [place], [place] [address] Name: Aylin Byrne RN Position: [facility] RN Member Role: Primary Care Nurse Name: Blaire Wilde RN Position: [facility] RN Supv Member Role: Primary Care Nurse Name: Edilma Metzger RN Position: [facility] RN Member Role: Primary Care Nurse Name: Katherine Bond RN Position: [facility] SN RN Member Role: Primary Care Nurse Name: Kerry Negron RN Position: [facility] RN Member Role: Primary Care Nurse Name: Missy Avilez RN Position: [facility] Onco RN Member Role: Primary Care Nurse Name: Katina Marcus RN Position: [facility] RN Member Role: Primary Care Nurse Name: Sienna Horne RN Position: [facility] RN Member Role: Primary Care Nurse Name: Ernestine Thomas RN Position: [facility] RN Member Role: Primary Care Nurse Care Team Related Persons Name: JANICE TAYLOR Address: [address] [address]
--- OUTSIDE RECORDS SUMMARY | 2024-05-04 13:19 | XMS_ITS | Continuity of Care Document ---
Author Organization [facility] Address [address] [place] [address]- Care Team Providers Care Vacuum Cooker Operator Name Role Phone Declan Muller MD Primary Care Physician Encounter [facility] Date(s): 08/21/23 - 04/01/24 [facility] [address] [place] [id number] Discharge Disposition: A-D/C Home Attending Physician: Heide [...] Vaccine (oldterm) 13 08/19/08 Given 1Result Comment: [facility] [id number] 2Result Comment: [06/22/2018] given at [facility] 3Location History: [facility] 4Location History: [facility] 5Admin Note: done @ clinic 6Admin Note: given w/out incident/VIS given 7Result Comment: [id number], [id number] 8Result Comment: DONE AT [facility] 9Location History: [facility] 10Result Comment: [07/21/2014] given w/out incident 11Admin Note: [facility] INFO GIVEN TO PATIENT 12Result Comment: lot #[id number] 13Admin Note: [facility] albuterol 0.083% inhalation solution 3 mL = 2.5 mg, Inhalation, Every 6 hours, PRN for wheezing, # 360 mL, 8 Refills, Maintenance, 07/07/19 14:14:00 EDT, Solution, ICD 10 J44.9, PLEASE BILL THROUGH MED B [id number] Start Date: 07/07/19 Status: Ordered albuterol 90 mcg/inh inhalation aerosol 0 Refills, Maintenance Start Date: 04/30/20 Status: Ordered Ativan 1 mg oral tablet 1 tablet = 1 mg, By Mouth, 3 times a day, PRN for anxiety, # 84 each, 0 Refills, Maintenance, 01/13/24 12:46:00 EDT, Tablet, [facility]/pharmacy #2025, 165, cm, 12/30/23 11:12:00 EDT, Height, 52.9, kg, 12/30/23 11:12:00 EDT, Dry Weight Start Date: 01/13/24 Status: Ordered Brovana 15 mcg/2 mL inhalation solution 1 each, Neb, 2 times a day, not to exceed 2 doses/day do not swallow, # 60 each, 1 Refills, Maintenance, 04/24/20 16:53:00 EDT, Solution, [facility]/pharmacy #2024, ICD Code J44.9, 165, cm, 03/12/20 8:39:00EDT, Height, 70.7, kg, 03/08/20 16:16:00 EDT, Dry... Start Date: 04/24/20 Status: Ordered budesonide 0.25 mg/2 mL inhalation suspension 0.25 mg, 2, mL, Neb, 2 times a day, for COPD J44.9. rinse mouth after use, # 120 mL, Refills 6, Tot. Refills 6, Maintenance, 03/06/20 11:34:00 EDT, Suspension, Route to Pharmacy Electronically, [id number], [facility]/pharmacy #2024,... Start Date: 03/06/20 Status: Ordered calcium-vitamin D 600 mg-400 intl units oral tablet 1 tablet, By Mouth, 2 times a day, # 180 tablet, 1 Refills, Maintenance, 10/07/22 11:54:00 EST, [facility], 90, TAKE 1 TABLET BY MOUTH TWICE A DAY, 165, cm, 08/26/22 11:06:00 EST, Height, 64.7, kg, 10/03/22 8:14:00 EST, Dry Weight Start Date: 10/07/22 Status: Ordered cetirizine 10 mg oral tablet 1 tablet, By Mouth, Daily, PRN NEEDED FOR SINUS SYMPTOMS, # 90 tablet, 1 Refills, Maintenance, 12/09/23 1:28:00 EST, [facility]/pharmacy #2024, 165, cm, 09/30/23 10:35:00 EST, Height, 53.7, kg, 11/27/23 8:47:00 EST, Dry Weight Start Date: 12/09/23 Status: Ordered cyclobenzaprine 10 mg oral tablet 1/2 OR 1 TABLET, By Mouth, 2 times a day, PRN, # 60 tablet, Refills 5, Tot. Refills 5, Maintenance, NEEDED FOR MUSCLE PAIN OR SPASM, 01/13/24 12:46:00 EDT, Route to Pharmacy Electronically, [facility]/pharmacy #2024, 165, cm, 12/30/23 11:12:00 EDT, Height... Start [...] capsule, 1 Refills, Maintenance, 02/29/24 11:02:00 EDT, [facility], 165, cm, 12/30/23 11:12:00 EDT, Height, 51.1,kg, 02/19/24 8:56:00 EDT, Dry Weight Start Date: 02/29/24 Stop Date: 02/23/25 Status: Ordered duloxetine 30 mg oral enteric coated capsule 1 capsule = 30 mg, By Mouth, Daily, # 30 capsule, 11 Refills, Maintenance, 09/14/23 16:34:00 EST, Capsule, [facility], Partial fill upon [...] 5 Refills, Maintenance, 01/08/24 12:43:00 EDT, Tablet, [facility], Partial fill upon patient request if the prescription is for a schedule II opioid drug., 165,... Start Date: 01/08/24 Status: Ordered methadone 10 mg oral tablet See Instructions, PRN for pain, 1 tablet By Mouth twice daily, # 56 each, 0 Refills, Maintenance, 03/28/24 14:34:00 EDT, Tablet, [facility], refill when due, 165, cm, 12/30/23 [...] drug. Start Date: 12/30/23 Status: Ordered nystatin 913411 u/ml oral suspension 5 mL, By Mouth, 4 times a day, # 480 mL, 1 Refills, Physician Stop 09/30/24 11:03:00 EST, 09/30/23 11:02:00 EST, [facility], 165, cm, 09/30/23 10:35:00 EST, Height, [...] a schedule II opioid dr... Start Date: 12/29/23 Stop Date: 12/28/24 Status: [...] 01/22/24 7:51:00 EDT, Route to Pharmacy Electronically, [facility]/pharmacy #2024, Partial fill upon patient request if the pres... Start Date: 01/22/24 Stop Date: 01/21/25 Status: Ordered Ventolin HFA 108 mcg/inh inhalation aerosol with adapter 2 puffs, Inhalation, 4 times a day, PRN for wheezing, # 18 Gm, 11 Refills, Maintenance, 01/13/20 11:40:00 EDT, Aerosol, [facility]/pharmacy #2024, 165, cm, 11/17/19 10:08:00 EST, Height, 53.6, kg, 10/14/19 10:56:00 EST, Dry Weight Start Date: 01/13/20 Status: Ordered Yupelri 175 mcg/3 mL inhalation solution = 175 mcg, Inhalation, Daily, j44.9 please bill through med B, # 90 mL, 2 Refills, Maintenance, 08/12/21 16:05:00 EDT, [facility], ICD 10 J44.9, PLEASE BILL THROUGH MED B [id number], 165, cm, 06/05/21 10:01:00 EDT, Height, 61.4, [...] Status:Done Progression:Not Met Pt will call provider/care karishma dominguez if in yellow zone of COPD Zone [...] Care Nurse Name: Shawnee Schafer RN Position: [facility] SN RN Member Role: Primary Care Nurse Name: Declan Muller MD Position: [facility] Physician - Primary Care Member Role: PCP Address: Address: [address] [place] [address] Adult [place] [address]- Name: Aylin Byrne RN Position: [facility] RN Member Role: Primary Care Nurse Name: Edilma Metzger RN Position: [facility] RN Member Role: Primary Care Nurse Name: Katherine Bond RN Position: [facility] SN RN Member Role: Primary Care Nurse Name: Gena Chavez RN Position: [facility] physician gynecologist Member Role: Storage Battery Charger Name: Kerry Negron RN Position: [facility] RN Member Role: Primary Care Nurse Name: Joslyn Dodge RN Position: [facility] AMB Nurse Member Role: Primary Care Nurse Name: Missy Avilez RN Position: [facility] Onco RN Member Role: Primary Care Nurse Name: Katina Marcus RN Position: [facility] RN Member Role: Primary Care Nurse Name: Sienna Horne RN Position: [facility] RN Member Role: Primary Care Nurse Name: Ernestine Thomas RN Position: [facility] RN Member Role: Primary Care Nurse Name: Heide GRAHAM(Hem/Onc)Fercho Position: [facility] Physician - Oncology Med Service: Hematology & Oncology Member Role: Admitting Physician Address: Address: [address] [place] [address] for Cancer Care [facility] [place] [address]- Care Team Related Persons Name: JANICE TAYLOR Address: home [address] [place] [id number]
--- OUTSIDE RECORDS SUMMARY | 2024-05-04 13:19 | XMS_ITS | Continuity of Care Document ---
Author Organization [facility] Address [address] [place] [address]- Care Team Providers Care Poiser Name Role Phone Declan Muller MD Primary Care Physician [phone] [place] [facility] [place] 04/02/20 - 04/09/20 [facility] [address] [place] [address]- [facility] Encounter Diagnosis Chronic obstructive lung disease(Discharge Diagnosis) - 04/02/20 COVID-19 virus infection(Discharge Diagnosis) - 04/02/20 Immunodeficiency disorder, hypogammaglobulinemia(Discharge Diagnosis) - 04/02/20 Lumbar radiculopathy(Discharge Diagnosis) - 04/02/20 Attending Physician: Declan Muller MD Allergies, Adverse [...] 12 08/19/08 Given 1Result Comment: DONE AT [facility] 2Result Comment: [06/22/2018] given at [facility] 3Location History: [facility] 5Admin Note: done @ clinic 6Admin Note: given w/out incident/VIS given 7Result Comment: [id number], [id number] 8[facility] 9Result Comment: [07/21/2014] given w/out incident 10Admin Note: [facility] INFO GIVEN TO PATIENT 11Result Comment: lot #[id number] 12Admin Note: [facility] albuterol 0.083% inhalation solution 3 mL = 2.5 mg, Inhalation, Every 6 hours, PRN for wheezing, # 360 mL, 8 Refills, Maintenance, 07/07/19 14:14:00 EDT, Solution, ICD 10 J44.9, PLEASE BILL THROUGH MED B [id number] Start Date: 07/07/19 Status: Ordered alendronate 70 mg oral tablet 1 tablet = 70 mg, By Mouth, Every week, # 4 tablet, 0 Refills, Maintenance, 04/02/20 11:08:00 EDT, Tablet Start Date: 04/02/20 Status: Ordered Ativan 1 mg oral tablet 1 tablet = 1 mg, By Mouth, 3 times a day, PRN for anxiety, # 84 each, 0 Refills, Acute 04/23/20 17:00:00 EDT, 03/26/20 7:55:00 EDT, Tablet, [facility]/pharmacy #2025, 165, cm, 03/12/20 8:39:00 EDT, Height, 70.7, kg, 03/08/20 16:16:00 EDT, Dry Weight Start Date: 03/26/20 Stop Date: 04/23/20 Status: Ordered Brovana 15 mcg/2 mL inhalation [...] 11:34:00 EDT, Suspension, Route to Pharmacy Electronically, [id number], [facility]/pharmacy #2024,... Start Date: 03/06/20 Status: Ordered calcium-vitamin [...] 10/26/19 12:28:00 EST, Route to Pharmacy Electronically, [facility]/pharmacy #2024, 165, cm, 10/14/19 10:56:00 EST, Height, [...] Replace Required Details, Route to Pharmacy Electronically, [facility]/pharmacy #2024... Start Date: 03/02/20 Status: Ordered duloxetine 20 mg oral enteric coated capsule 1 capsule = 20 mg, By Mouth, Daily, 0 Refills, Maintenance, 04/02/20 9:18:00 EDT Start Date: 04/02/20 Status: Ordered gabapentin 400 mg oral capsule 400 mg, 1, capsule, By Mouth, 2 times a day, # 60 each, Refills 11, Tot. Refills 11, Maintenance, 02/22/20 10:31:00 EDT, Route to Pharmacy Electronically, [facility]/pharmacy #2025, 165, cm, 01/27/20 8:11:00 EDT, Height, 53.6, kg, 10/14/19 10:56:00 EST, Dry... Start Date: 02/22/20 Status: Ordered methadone 10 mg oral tablet See Instructions, PRN for pain, 2 tablets By Mouth in the morning, 1 tablet in the afternoon, and 3tablets by mouth in the evening 28 day schedule, # 168 each, 0 Refills, Acute 04/23/20 17:00:00 EDT, 03/26/20 7:55:00 EDT, Tablet, [facility]/pharmacy #202... Start Date: 03/26/20 Stop Date: 04/23/20 Status: Ordered oxyCODONE 10 mg oral tablet 2 tablet = 20 mg, By Mouth, Every 4 hours, PRN as needed for pain, 28 day prescription patient may fill for less than quantity prescribed, # 224 tablet, 0 Refills, Acute 04/23/20 17:00:00 EDT, 03/26/20 7:55:00 EDT, Tablet, [facility]/pharmacy #2025, 165, cm... Start Date: 03/26/20 Stop Date: 04/23/20 Status: Ordered pantoprazole 40 mg oral delayed [...] each, 11 Refills,Maintenance, 04/02/20 11:09:00 EDT, Tablet, [facility]/pharmacy #2025, 165, cm, 03/12/20 8:39:00 EDT, Height, [...] Maintenance, 03/02/2017:09:00 EDT, Route to Pharmacy Electronically, [facility]/pharmacy #2024 Tablet, 165, cm, 01/27/20 8:11:00 EDT, Height, 53.6, kg, 10/14/19 10:56:00 EST, Dry... Start Date: 03/02/20 Status: Ordered triamcinolone 0.1% topical cream 1 application, Topically, 3 times a day, PRN psoriasis rash, # 60 Gm, 5 Refills, Acute 01/01/21 10:47:00 EDT, 01/02/20 10:46:00 EDT, Cream, [facility]/pharmacy #2024, 1 application Topically 3 times a day,PRN:psoriasis rash, 165, cm, 11/17/19 10:08:00 EST, H... Start Date: 01/02/20 Stop Date: 01/01/21 Status: Ordered Ventolin HFA 108 mcg/inh inhalation aerosol with adapter 2 puffs, Inhalation, 4 times a day, PRN for wheezing, # 18 Gm, 11 Refills, Maintenance, 01/13/20 11:40:00 EDT, Aerosol, [facility]/pharmacy #2024, 165, cm, 11/17/19 10:08:00 EST, Height, 53.6, kg, 10/14/19 10:56:00 EST, Dry Weight Start Date: 01/13/20 Status: Ordered Yupelri 175 mcg/3 mL inhalation solution = 175 mcg, Inhalation, Daily, j44.9, # 360 mL, 6 Refills, Maintenance, 03/06/20 11:37:00 EDT, [facility]/pharmacy #2024, ICD 10 J44.9, PLEASE BILL THROUGH MED B [id number], 165, cm, 01/27/20 8:11:00 EDT, Height, 53.6, [...] sleep apnea syndrome(Confirmed) Active Umbilical herniorrhaphy(Confirmed) Active Diagnosis Diagnosis Type Effective Dates Health Status Clinical Service Informant Chronic obstructive lung disease Discharge Diagnosis 04/02/20 COVID-19 virus infection Discharge Diagnosis 04/02/20 Immunodeficiency disorder, hypogammaglobulinemia Discharge Diagnosis 04/02/20 Lumbar radiculopathy Discharge Diagnosis 04/02/20 Social History Social History Type Response Smoking Status Former smoker, quit more than 30 days ago; Other: quit 20 years ago; entered on: 09/24/19 Sex
--- OUTSIDE RECORDS SUMMARY | 2024-05-04 13:19 | XMS_ITS | Continuity of Care Document ---
Author Organization [facility] Address [address] [place] [address]- Care Team Providers Care Therapeutic Sales Specialist Name Role Phone Declan Muller MD Primary Care Physician [phone] [place] [facility] [place] 10/15/20 - 11/14/20 [facility] [address] [place] [address]- Attending Physician: Kaleb De Leon Admitting Physician: AdmKaleb colindres Referring Physician: AdmtrKaleb Allergies, Adverse Reactions, Alerts [...] Note: given w/out incident/VIS given 7Result Comment: [id number], [id number] [facility] 9Result Comment: [07/21/2014] given w/out incident 10Admin Note: [facility] INFO GIVEN TO PATIENT 11Result Comment: lot #[id number] 12Admin Note: [facility] albuterol 0.083% inhalation solution 3 mL = 2.5 mg, Inhalation, Every 6 hours, PRN for wheezing, # 360 mL, 8 Refills, Maintenance, 07/07/19 14:14:00 EDT, Solution, ICD 10 J44.9, PLEASE BILL THROUGH MED B [id number] Start Date: 07/07/19 Status: Ordered alendronate 70 mg oral tablet 1 tablet = 70 mg, By Mouth, Every week, # 4 tablet, 0 Refills, Maintenance, 04/02/20 11:08:00 EDT, Tablet Start Date: 04/02/20 Status: Ordered Ativan 1 mg oral tablet 1 tablet = 1 mg, By Mouth, 3 times a day, PRN for anxiety, # 84 each, 0 Refills, Acute 11/02/21 17:06:00 EST, 11/02/20 17:06:00 EST, Tablet, [facility], 165, cm, 05/17/20 16:00:00 EDT, Height, 66.5, kg, 09/21/20 8:46:00 EST, Dry Weight Start Date: 11/02/20 Stop Date: 11/02/21 Status: Ordered Brovana 15 mcg/2 mL inhalation [...] 11:34:00 EDT, Suspension, Route to Pharmacy Electronically, [id number], [facility]/pharmacy #2025,... Start Date: 03/06/20 Status: Ordered calcium-vitamin D 600 mg-400 intl units oral tablet See Instructions, 1 tablet By Mouth twice daily, # 60 tablet, 11 Refills, Maintenance, 07/04/20 15:50:00 EDT, Tablet, [facility]/pharmacy #5, 1 tablet By Mouth twice daily, 165, [...] PAIN,10/10/20 16:50:00 EST, Route to Pharmacy Electronically, [facility]ORE [id number], 165, cm, 05/17/20 16:00:00 EDT, Height, 66.5, kg, 09/21/20 8:46:00 EST, Dry W... Start Date: 10/10/20 Status: Ordered docusate sodium 100 mg oral capsule See Instructions, PRN, 3 capsule By Mouth 2 times a day 30 days, # 180 each, Refills 11, Tot. Refills 11, Maintenance, for constipation, 03/02/20 17:08:00 EDT, Instructions Replace Required Details, Route to Pharmacy Electronically, [facility]/pharmacy #2025... Start Date: 03/02/20 Status: Ordered [...] 10:31:00 EDT, Route to [facility] Electronically, [facility], 165, cm, 01/27/20 8:11:00 EDT, Height, 53.6, kg, 10/14/19 10:56:00 EST, Dry... Start Date: 02/22/20 Status: Ordered losartan 50 mg oral tablet 50 mg, 1, tablet, By Mouth, Daily, # 30 tablet, Refills 6, Tot. Refills 6, Maintenance, 10/05/20 10:44:00 EST, Route to Pharmacy Electronically, [facility]/pharmacy #202, Partial fill upon patient request if the prescription is for a schedule II opioid drug... Start Date: 10/05/20 Stop Date: 05/03/21 Status: Ordered methadone 10 mg oral tablet See Instructions, PRN for pain, 2 tablets By Mouth in the morning, 1 tablet in the afternoon, and 3tablets by mouth in the evening 28 day schedule, # 168 each, 0 Refills, Acute 11/02/21 17:07:00 EST, 11/02/20 17:07:00 EST, Tablet, [facility]/pharmacy #20... Start Date: 11/02/20 Stop Date: 11/02/21 Status: Ordered naproxen 500 mg oral tablet [...] prescribed, # 224 tablet, 0 Refills, Acute 11/02/21 17:09:00 EST, 11/02/20 17:08:00 EST, Tablet, [facility], refill... Start Date: 11/02/20 Stop Date: 11/02/21 Status: Ordered pantoprazole 40 mg oral delayed [...] Refills, Acute, 05/22/20 11:58:00 EDT, [id number], 165, cm, 05/17/20 16:00:00 EDT, Height, 67, [...] Maintenance, 03/02/2017:09:00 EDT, Route to Pharmacy Electronically, [facility]/pharmacy #2024 Tablet, 165, cm, 01/27/20 8:11:00 EDT, Height, 53.6, kg, 10/14/19 10:56:00 EST, Dry... Start Date: 03/02/20 Status: Ordered triamcinolone 0.1% topical cream 1 application, Topically, 3 times a day, PRN psoriasis rash, # 60 Gm, 5 Refills, Acute 01/01/21 10:47:00 EDT, 01/02/20 10:46:00 EDT, Cream, [facility]/pharmacy #2024, 1 application Topically 3 times a day,PRN:psoriasis rash, 165, cm, 11/17/19 10:08:00 EST, H... Start Date: 01/02/20 Stop Date: 01/01/21 Status: Ordered Ventolin HFA 108 mcg/inh inhalation aerosol with adapter 2 puffs, Inhalation, 4 times a day, PRN for wheezing, # 18 Gm, 11 Refills, Maintenance, 01/13/20 11:40:00 EDT, Aerosol, [facility]/pharmacy #2024, 165, cm, 11/17/19 10:08:00 EST, Height, 53.6, kg, 10/14/19 10:56:00 EST, Dry Weight Start Date: 01/13/20 Status: Ordered Yupelri 175 mcg/3 mL inhalation solution = 175 mcg, Inhalation, Daily, j44.9, # 360 mL, 6 Refills, Maintenance, 03/06/20 11:37:00 EDT, [facility]/pharmacy #2024, ICD 10 J44.9, PLEASE BILL THROUGH MED B [id number], 165, cm, 01/27/20 8:11:00 EDT, Height, 53.6, [...] Active Fatty liver(Confirmed) Active Umbilical herniorrhaphy(Confirmed) Active Vital Signs Most [...]
--- OUTSIDE RECORDS SUMMARY | 2024-05-04 13:19 | XMS_ITS | Continuity of Care Document ---
Author Organization [facility] Address [address] [place] [address]- Care Team Providers Care Cna Caregiver Name Role Phone Declan Muller MD Primary Care Physician Encounter [facility] [place] Date(s): 11/27/21 - 12/04/21 [facility] [address] [place] [address]- Encounter Diagnosis Cough(Discharge Diagnosis) - 11/27/21 Chronic obstructive lung disease(Discharge Diagnosis) - 11/27/21 Immunodeficiency disorder, hypogammaglobulinemia(Discharge Diagnosis) - 11/27/21 Attending Physician: Declan Muller MD Allergies, Adverse Reactions, Alerts Substance Reaction Severity Status Bactrim DS lightheaded and loopy Acti ve Augmentin gi upset Active Levaquin tendon pains [...] (oldterm) 10 08/08/10 Given pneumococcal 23-valent vaccine 2/14/10 Given pneumococcal 23-valent vaccine 11 12/02/09 Given Influenza Vaccine (oldterm) 12 08/19/08 Given 1Result Comment: DONE AT [facility] 2Result Comment: [06/22/2018] given at [facility] 3Location History: [facility] 4Location History: [facility] 5Admin Note: done @ clinic 6Admin Note: given w/out incident/VIS given 7Result Comment: [id number], [id number] 8Location History: [facility] 9Result Comment: [07/21/2014] given w/out incident 10Admin Note: CDC INFO GIVEN TO PATIENT 11Result Comment: lot #[id number] 12Admin Note: [facility] albuterol 0.083% inhalation solution 3 mL = 2.5 mg, Inhalation, Every 6 hours, PRN for wheezing, # 360 mL, 8 Refills, Maintenance, 07/07/19 14:14:00 EDT, Solution, ICD 10 J44.9, PLEASE BILL THROUGH MED B [id number] Start Date: 07/07/19 Status: Ordered alendronate 70 [...] 12/02/22 16:09:00 EST, 12/02/21 16:09:00 EST, Tablet, [facility], 165, cm, 10/25/21 17:56:00 EST, Height, 54.5, [...] 1 Refills, Maintenance, 04/24/20 16:53:00 EDT, Solution, [facility]/pharmacy #2024, ICD Code J44.9, 165, cm, 03/12/20 8:39:00EDT, Height, 70.7, kg, 03/08/20 16:16:00 EDT, Dry... Start Date: 04/24/20 Status: Ordered budesonide 0.25 mg/2 mL inhalation suspension 0.25 mg, 2, mL, Neb, 2 times a day, for COPD J44.9. rinse mouth after use, # 120 mL, Refills 6, Tot. Refills 6, Maintenance, 03/06/20 11:34:00 EDT, Suspension, Route to Pharmacy Electronically, [id number], [facility]/pharmacy #2024,... Start Date: 03/06/20 Status: Ordered calcium-vitamin D 600 mg-400 intl units oral tablet See Instructions, 1 tablet By Mouth twice daily, # 60 tablet, 11 Refills, Maintenance, 10/28/21 10:33:00 EST, Tablet, [facility]/pharmacy #2024, 1 tablet By Mouth twice daily, 165, cm, 10/25/21 17:56:00 EST, Height, 54.5, kg, 10/25/21 17:05:00 EST, Dry Weight Start Date: 10/28/21 Status: Ordered Citrate of Magnesia 8.85% oral liquid See Instructions, 30 mL By Mouth Once daily as needed for constipation, # 300 mL, 1 Refills, Soft Stop, 10/02/21 17:13:00 EST, Liquid, [facility]/pharmacy #2024, Partial fill upon patient request if the prescription is for a schedule II opioid drug., 30 mL B... Start Date: 10/02/21 Status: Ordered cyclobenzaprine 10 mg oral tablet 1, tablet, By Mouth, Daily, PRN, # 30 tablet, Refills 11, Tot. Refills 11, Physician Stop 12/02/22 16:09:00 EST, NEEDED FOR PAIN, 12/02/21 16:09:00 EST, Route to Pharmacy Electronically, [facility]/pharmacy #2024, 165, cm, 10/25/21 17:56:00 EST, Height, 5... Start Date: 12/02/21 Stop Date: 12/02/22 Status: Ordered docusate sodium 100 mg oral capsule 2 capsule, By Mouth, 2 times a day, PRN NEEDED FOR CONSTIPATION FOR, # 120 capsule, 11 Refills, Maintenance, 11/21/20 16:36:00 EST, [facility], 165, cm, 05/17/20 16:00:00 EDT, Height, 66.5, kg, 09/21/20 8:46:00 EST, Dry Weight Start Date: 11/21/20 Stop Date: 12/21/20 Status: Ordered duloxetine 20 mg oral enteric coated capsule 1 capsule = 20 mg, By Mouth, Daily, # 30 capsule, 11 Refills, Maintenance, 07/16/21 15:55:00 EDT, Capsule, [facility]/pharmacy #2024, Partial fill upon patient request if the prescription is for a schedule II opioid drug., 165, cm, 06/05/21 10:01:00 EDT, Hei... Start Date: 07/16/21 Status: Ordered gabapentin 400 mg oral capsule 1, capsule, By Mouth, 3 times a day, # 90 each, Refills 11, Tot. Refills 11, Maintenance, 09/09/21 11:35:00 EST, Route to Pharmacy Electronically, [facility]/pharmacy #2024, dose increase, refill when needed, 165, [...] 12/02/22 15:11:00 EST, 12/02/21 15:11:00 EST, Tablet, [facility]/pharmacy #20... Start Date: 12/02/21 Stop Date: 12/02/22 Status: Ordered oxyCODONE 10 mg oral tablet 2 tablet = 20 mg, By Mouth, Every 4 hours, PRN as needed for pain, 28 day prescription patient may fill for less than quantity prescribed, # 224 tablet, 0 Refills, Acute 12/02/22 15:12:00 EST, 12/02/21 15:12:00 EST, Tablet, [facility], refill... Start Date: 12/02/21 Stop Date: [...] 10 J44.9, PLEASE BILL THROUGH MED B [id number], 165, cm, 06/05/21 10:01:00 EDT, Height, 61.4, [...] Effective Dates Health Status Clinical Service Informant Cough Discharge Diagnosis 11/27/21 Chronic obstructive lung disease Discharge Diagnosis 11/27/21 Immunodeficiency disorder, hypogammaglobulinemia Discharge Diagnosis 11/27/21 Social History Social History Type Response Smoking Status Former smoker, quit more than 30 days ago; Other: quit 20 years ago; entered on: 09/24/19 Sex
--- OUTSIDE RECORDS SUMMARY | 2024-05-04 13:19 | XMS_ITS | Continuity of Care Document ---
Author Organization [facility] Address [address] [place] [address]- Care Team Providers Care Compliance Engineer Products Name Role Phone Renzo GRAHAM, Declan Hou Primary Care Physician Encounter [facility] Date(s): 12/09/23 - 01/08/24 [facility] [address] [place], [place] [address] Allergies, Adverse Reactions, Alerts Substance Reaction [...] Vaccine (oldterm) 13 08/19/08 Given 1Result Comment: [facility][note 3] [id number] 2Result Comment: [06/22/2018] given at [facility] 3Location History: [facility] 4Location History: [facility] 5Admin Note: done @ clinic 6Admin Note: given w/out incident/VIS given 7Result Comment: [id number], [id number] 8Result Comment: DONE AT [facility] 10Result Comment: [07/21/2014] given w/out incident 11Admin Note: [facility] INFO GIVEN TO PATIENT 12Result Comment: lot #[id number] 13Admin Note: [facility] albuterol 0.083% inhalation solution 3 mL = 2.5 mg, Inhalation, Every 6 hours, PRN for wheezing, # 360 mL, 8 Refills, Maintenance, 07/07/19 14:14:00 EDT, Solution, ICD 10 J44.9, PLEASE BILL THROUGH MED B [id number] Start Date: 07/07/19 Status: Ordered albuterol 90 [...] 11:34:00 EDT, Suspension, Route to Pharmacy Electronically, [id number], [facility]/pharmacy #202,... Start Date: 03/06/20 Status: Ordered calcium-vitamin D 600 mg-400 intl units oral tablet 1 tablet, By Mouth, 2 times a day, # 180 tablet, 1 Refills, Maintenance, 10/07/22 11:54:00 EST, [facility], 90, TAKE 1 TABLET BY MOUTH TWICE A DAY, 165, cm, 08/26/22 11:06:00 EST, Height, 64.7, kg, 10/03/22 8:14:00 EST, Dry Weight Start Date: 10/07/22 Status: Ordered cetirizine 10 mg oral tablet 1 tablet, By Mouth, Daily, PRN NEEDED FOR SINUS SYMPTOMS, # 90 tablet, 1 Refills, Maintenance, 12/09/23 1:28:00 EST, [facility]/pharmacy #2024, 165, cm, 09/30/23 10:35:00 EST, Height, 53.7, kg, 11/27/23 8:47:00 EST, Dry Weight Start Date: 12/09/23 Status: Ordered cyclobenzaprine 10 mg oral tablet 1/2 OR 1 TABLET, By Mouth, 2 times a day, PRN, # 60 tablet, Refills 5, Tot. Refills 5, Maintenance, NEEDED FOR MUSCLE PAIN OR SPASM, 09/24/23 14:08:00 EST, Route to Pharmacy Electronically, [facility]/pharmacy #2024, 165, cm, 09/04/23 8:51:00 EST, Height,... [...] 11 Refills, Maintenance, 03/03/23 10:03:00 EDT, [facility], 165, cm, 01/21/23 10:40:00 EDT, [...] 5 Refills, Maintenance, 01/08/24 12:43:00 EDT, Tablet, [facility]/pharmacy #2024, Partial fill upon patient request if [...] drug. Start Date: 12/30/23 Status: Ordered nystatin 159426 u/ml oral suspension 5 mL, By Mouth, 4 times a day, # 480 mL, 1 Refills, Physician Stop 09/30/24 11:03:00 EST, 09/30/23 11:02:00 EST, [facility]/pharmacy #2024, 165, cm, 09/30/23 10:35:00 EST, Height, 55, kg, 09/30/23 10:35:00 EST, Dry Weight Start Date: 09/30/23 Stop Date: 09/30/24 Status: Ordered ondansetron 4 mg oral tablet, disintegrating 1 tablet = 4 mg, By Mouth, Every 6 hours, PRN Nausea & Vomiting, # 20 each, 1 Refills, Acute 12/28/24 12:00:00 EDT, 12/29/23 12:52:00 EDT, Tablet, [facility]/pharmacy #2024, Partial fill upon patient request if [...] 10 J44.9, PLEASE BILL THROUGH MED B [id number], 165, cm, 06/05/21 10:01:00 EDT, Height, 61.4, [...] Care Team Personnel Name: Joelle Castillo Position: [facility] Onco RN Member Role: Primary Care Nurse Name: Shawnee Schafer RN Position: [facility] SN RN Member Role: Primary Care Nurse Name: Declan Muller MD Position: [facility] Physician - Primary Care Member Role: PCP Address: Address: [address] [place] [address] Adult & Pediatric Medicine [place], [place] [address] Name: Aylin Byrne RN Position: [facility] RN Member Role: Primary Care Nurse Name: Edilma Metzger RN Position: [facility] RN Member Role: Primary Care Nurse Name: Katherine Bond RN Position: [facility] SN RN Member Role: Primary Care Nurse Name: Gena Chavez RN Position: [facility] medical collector Member Role: Jeweler Apprentice Name: Kerry Negron RN Position: [facility] RN Member Role: Primary Care Nurse Name: Joslyn Dogde RN Position: [facility] SN RN Member Role: Primary Care Nurse Name: Missy Avilez RN Position: [facility] Onco RN Member Role: Primary Care Nurse Name: Katina Marcus RN Position: [facility] RN Member Role: Primary Care Nurse Name: Sienna Horne RN Position: [facility] RN Member Role: Primary Care Nurse Name: Ernestine Thomas RN Position: [facility] RN Member Role: Primary Care Nurse Care Team Related Persons Name: JANICE TAYLOR Address: [address] [address]
--- OUTSIDE RECORDS SUMMARY | 2024-05-04 13:19 | XMS_ITS | Continuity of Care Document ---
Author Organization [facility] Address [address] [place] [address]- Care Team Providers Care Compensation Adjuster Name Role Phone Renzo GRAHAM, Declan Hou Primary Care Physician Encounter [facility] Date(s): 06/02/23 - 07/02/23 [facility] [address] [place], [place] [address] Allergies, Adverse Reactions, Alerts Substance Reaction Severity [...] Vaccine (oldterm) 13 08/19/08 Given 1Result Comment: [facility] [id number] 2Result Comment: [06/22/2018] given at [facility] 3Location History: [facility] 4Location History: [facility] 5Admin Note: done @ clinic 6Admin Note: given w/out incident/VIS given 7Result Comment: [id number] 8Result Comment: DONE AT [facility] 10Result Comment: [07/21/2014] given w/out incident 11Admin Note: [facility] INFO GIVEN TO PATIENT 12Result Comment: lot #[id number] 13Admin Note: [facility] albuterol 0.083% inhalation solution 3 mL = 2.5 mg, Inhalation, Every 6 hours, PRN for wheezing, # 360 mL, 8 Refills, Maintenance, 07/07/19 14:14:00 EDT, Solution, ICD 10 J44.9, PLEASE BILL THROUGH MED B [id number] Start Date: 07/07/19 Status: Ordered albuterol 90 mcg/inh inhalation aerosol 0 Refills, Maintenance Start Date: 04/30/20 Status: Ordered Ativan 1 mg oral tablet 1 tablet = 1 mg, By Mouth, 3 times a day, PRN for anxiety, # 84 each, 0 Refills, Acute 05/27/24 10:08:00 EDT, 05/27/23 10:08:00 EDT, [facility]t, [facility], 165, cm, 04/17/23 11:00:00 EDT, Height, 54.7, kg, 03/20/23 8:33:00 EDT, Dry Weight Start Date: 05/27/23 Stop Date: 05/27/24 Status: Ordered Brovana 15 mcg/2 mL inhalation [...] 11:34:00 EDT, Suspension, Route to Pharmacy Electronically, [id number], [facility]/pharmacy #2025,... Start Date: 03/06/20 Status: Ordered calcium-vitamin D 600 mg-400 intl units oral tablet 1 tablet, By Mouth, 2 times a day, # 180 tablet, 1 Refills, Maintenance, 10/07/22 11:54:00 EST, [facility], [facility], TAKE 1 TABLET BY MOUTH TWICE A DAY, 165, cm, 08/26/22 11:06:00 EST, Height, 64.7, kg, 10/03/22 8:14:00 EST, Dry Weight Start Date: 10/07/22 Status: Ordered cyclobenzaprine 10 mg oral tablet 1/2 OR 1 TABLET, By Mouth, 2 times a day, PRN, # 60 tablet, Refills 5, Maintenance, NEEDED FOR MUSCLE PAIN OR SPASM, 06/29/23 10:11:00 EDT, Route to Pharmacy Electronically, [facility], 165, cm, 04/17/23 11:00:00 EDT, Height, 52.7, kg, ... Start Date: 06/29/23 Status: Ordered Daliresp By Mouth, Daily, 0 [...] 11 Refills,Maintenance, 08/19/22 11:00:00 EDT, EC Tablet, [facility]/pharmacy #202, Partial fill upon patient request [...] capsule, 11 Refills, Maintenance, 03/03/23 10:03:00 EDT, [facility]/pharmacy #202, 165, cm, 01/21/23 10:40:00 EDT, Height, 55.8, kg, 01/23/23 8:24:00 EDT, Dry Weight Start Date: 03/03/23 Stop Date: 02/26/24 Status: Ordered duloxetine 30 mg oral enteric coated capsule 1 capsule = 30 mg, By Mouth, Daily, # 30 capsule, 11 Refills, Maintenance, 12/15/22 9:46:00 EST, [facility] Partial fill upon patient request if the prescription is for a schedule II opioid drug., 165, cm, 10/09/22 11:32:00 EST, [place]... Start Date: 12/15/22 Status: Ordered gabapentin 400 mg oral capsule 1, capsule, By Mouth, 3 times a day, # 90 capsule, Refills 11, Maintenance, 10/07/22 13:28:00 EST, Route to Pharmacy Electronically, [facility], 165, cm, 08/26/22 11:06:00 EST, Height, 64.7, [...] Refills, Maintenance, 10/15/22 9:58:00 EST, [facility], 165, cm, 10/09/22 11:32:00 EST, Height, 64.7, [...] schedule, # 168 each, 0 Refills, Acute 05/27/24 10:07:00 EDT, 05/27/23 10:07:00 EDT, Tablet, [facility] Start Date: 05/27/23 Stop Date: 05/27/24 Status: Ordered nystatin 372654 u/ml oral suspension 5 mL, By Mouth, 4 times a day, # 480 mL, 1 Refills, [facility], 165, cm, 03/28/22 11:14:00 EDT, Height, 60.4, [...] 10 J44.9, PLEASE BILL THROUGH MED B [id number], 165, cm, 06/05/21 10:01:00 EDT, Height, 61.4, [...] Care Team Personnel Name: Joelle Castillo Position: [facility] Onco RN Member Role: Primary Care Nurse Name: Marilee Pitts RN Position: [facility] RN Member Role: Primary Care Nurse Name: Shawnee Schafer RN Position: [facility] SN RN Member Role: Primary Care Nurse Name: Declan Muller MD Position: [facility] Physician - Primary Care Member Role: PCP Address: Address: [address] [place] [address] Adult & Pediatric [place], [place] [address] Name: Aylin Byrne RN Position: [facility] RN Member Role: Primary Care Nurse Name: Edilma Metzger RN Position: S RN Member Role: Primary Care Nurse Name: Katherine Bond RN Position: [facility] SN RN Member Role: Primary Care Nurse Name: Kerry Negron RN Position: [facility] RN Member Role: Primary Care Nurse Name: Joslyn Dodge RN Position: [facility] SN RN Member Role: Primary Care Nurse Name: Missy Avilez RN Position: [facility] Onco RN Member Role: Primary Care Nurse Name: Katina Marcus RN Position: [facility] RN Member Role: Primary Care Nurse Name: Sienna Horne RN Position: [facility] RN Member Role: Primary Care Nurse Name: Ernestine Thomas RN Position: S RN Member Role: Primary Care Nurse Care Team Related Persons Name: JANICE TAYLOR Address: [address] [address]
--- OUTSIDE RECORDS SUMMARY | 2024-05-04 13:19 | XMS_ITS | Continuity of Care Document ---
Author Organization [facility] Address [address] [place] [address]- Care Team Providers Care Central Supply Worker Name Role Phone Renzo GRAHAM, Declan Hou Primary Care Physician Encounter [facility] Date(s): 08/19/22 - 09/18/22 [facility] [address] [place], [place] [address] Attending Physician: Kaleb De Leon Admitting Physician: Kaleb De Leon Referring Physician: AdmtrKaleb Allergies, Adverse Reactions, Alerts Substance Reaction Severity Status Augmentin gi upset Active Levaquin tendon pains Active Bactrim DS lightheaded and loopy Acti ve Immunizations Given and Recorded Vaccine Date Status Refusal Reason influenza virus vaccine, inactivated 1 08/19/22 Gi seferino influenza virus vaccine, inactivated 09/21/21 Dawit rded influenza virus vaccine, inactivated 2 06/20/18 Re corded influenza virus vaccine, inactivated 3 07/17/16 Re corded influenza virus vaccine, inactivated 4 08/04/15 Re corded influenza virus vaccine, inactivated 5 07/13/14 Gi seferino influenza virus vaccine, inactivated 6 07/03/11 Gi seferino influenza virus vaccine, inactivated 7 12/02/09 Gi seferino zoster vaccine, inactivated 06/18/22 Recorded tetanus/diphtheria/pertussis, acel(Tdap) 06/18/22 Recorded SARS-CoV-2 (COVID-19) mRNA BNT-162b2 vac 03/28/21 Recorded SARS-CoV-2 (COVID-19) mRNA BNT-162b2 vac 03/02/21 Recorded Influenza Virus Vaccine (oldterm) 8 06/19/19 Recor ded pneumococcal 13-valent vaccine 9 11/19/15 Recorded tetanus-diphtheria toxoids (Td) 10 07/21/14 Given FluLaval (oldterm) 11 08/08/10 Given pneumococcal 23-valent vaccine 12/02/09 Given pneumococcal 23-valent vaccine 12 12/02/09 Given Influenza Vaccine (oldterm) 13 08/19/08 Given 1Result Comment: [facility] [id number] 2Result Comment: [06/22/2018] given at [facility] 3Location History: [facility] 4Location History: [facility] 5Admin Note: done @ clinic 6Admin Note: given w/out incident/VIS given 7Result Comment: [id number] 8Result Comment: DONE AT [facility] 9Location History: [facility] 10Result Comment: [07/21/2014] given w/out incident 11Admin Note: [facility][NOTE 2] INFO GIVEN TO PATIENT 12Result Comment: lot #[id number] 13Admin Note: [facility] albuterol 0.083% inhalation solution 3 mL = 2.5 mg, Inhalation, Every 6 hours, PRN for wheezing, # 360 mL, 8 Refills, Maintenance, 07/07/19 14:14:00 EDT, Solution, ICD 10 J44.9, PLEASE BILL THROUGH MED B [id number] Start Date: 07/07/19 Status: Ordered albuterol 90 mcg/inh inhalation aerosol 0 Refills, Maintenance Start Date: 04/30/20 Status: Ordered Ativan 1 mg oral tablet 1 tablet = 1 mg, By Mouth, 3 times a day, PRN for anxiety, # 84 each, 0 Refills, Acute 09/15/23 14:34:00 EST, 09/15/22 14:33:00 EST, Tablet, [facility], 165, cm, 08/26/22 11:06:00 EST, Height, 63.8, kg, 08/26/22 11:06:00 EST, Dry Weight Start Date: 09/15/22 Stop Date: 09/15/23 Status: Ordered Brovana 15 mcg/2 mL inhalation [...] 11:34:00 EDT, Suspension, Route to Pharmacy Electronically, [id number], [facility]/pharmacy #2024,... Start Date: 03/06/20 Status: Ordered calcium-vitamin D 600 mg-400 intl units oral tablet See Instructions, 1 tablet By Mouth twice daily, # 60 tablet, 11 Refills, Maintenance, 10/28/21 10:33:00 EST, Tablet, [facility], 1 tablet By Mouth twice daily, 165, cm, 10/25/21 17:56:00 EST, Height, 54.5, kg, 10/25/21 17:05:00 EST, Dry Weight Start Date: 10/28/21 Status: Ordered Daliresp By Mouth, Daily, 0 [...] 11 Refills,Maintenance, 08/19/22 11:00:00 EDT, EC Tablet, [facility], Partial fill upon patient request if the prescription is for a schedule II opioid . Start Date: 08/19/22 Status: Ordered docusate sodium 100 mg oral [...] mg, By Mouth, Daily, # 30 capsule, 0 Refills, Maintenance, 03/28/22 11:36:00 EDT, Partial fill upon patient request if the prescription is for a schedule II opioid drug. Start Date: 03/28/22 Status: Ordered gabapentin 400 mg oral capsule See Instructions, 1 capsule By Mouth 4 times a day, # 120 each, Refills 11, Tot. Refills 11, Maintenance, 07/30/22 12:57:00 EDT, Instructions Replace Required Details, Route to Pharmacy Electronically, [facility]/pharmacy #0447, dose increase, refill when ne... Start Date: 07/30/22 Status: Ordered Linzess 145 mcg oral capsule 1 capsule = 145 mcg, By Mouth, Daily, # 90 capsule, 3 Refills, Maintenance, 07/18/22 14:14:00 EDT, Capsule, [facility]/pharmacy #0447, Partial fill upon patient request if the prescription is for a scheduleII opioid drug., 165, cm, 04/17/22 13:32:00 EDT, He... Start Date: 07/18/22 Status: Ordered Linzess 290 mcg oral capsule 1 capsule = 290 mcg, By Mouth, Daily, # 30 capsule, 3 Refills, Maintenance, 06/27/22 13:21:00 EDT, Capsule, [facility]/pharmacy #2025, Partial fill upon patient request if the prescription is for a scheduleII opioid drug., 165, cm, 04/17/22 13:32:00 EDT, He... Start Date: 06/27/22 Status: Ordered Linzess 290 mcg oral capsule 1 capsule, By Mouth, Daily, # 30 capsule, 3 Refills, Maintenance, 06/24/22 12:21:00 EDT, [facility], 165, cm, 04/17/22 13:32:00 EDT, Height, 60.6, kg, 04/18/22 8:40:00 EDT, Dry Weight Start Date: 06/24/22 Status: Ordered methadone 10 mg oral tablet See Instructions, PRN for pain, 2 tablets By Mouth in the morning, 1 tablet in the afternoon, and 3tablets by mouth in the evening 28 day schedule, # 168 each, 0 Refills, Acute 09/15/23 14:34:00 EST, 09/15/22 14:33:00 EST, Tablet, [facility] Start Date: 09/15/22 Stop Date: 09/15/23 Status: Ordered nystatin 593181 u/ml oral suspension 5 mL, By Mouth, 4 times a day, # 480 mL, 1 Refills, [facility], 165, cm, 03/28/22 11:14:00 EDT, Height, 60.4, kg, 03/06/22 10:48:00 EDT, Dry Weight Start Date: 04/17/22 Status: Ordered oxyCODONE 10 mg oral tablet 2 tablet = 20 mg, By Mouth, Every 4 hours, PRN as needed for pain, 28 day prescription patient may fill for less than quantity prescribed, # 224 tablet, 0 Refills, Acute 09/15/23 14:34:00 EST, 09/15/22 14:33:00 EST, Tablet, [facility], refill... Start Date: 09/15/22 Stop Date: 09/15/23 Status: Ordered pantoprazole 40 mg oral delayed [...] Acute 05/08/23 16:01:00EDT, 05/08/22 16:00:00 EDT, Cream, [facility]/pharmacy #202, Partial fill upon patient request if the prescription is for a schedule II opioid drug., 1 appli... Start Date: 05/08/22 Stop Date: 05/08/23 Status: Ordered Ventolin HFA 108 mcg/inh inhalation aerosol with adapter 2 puffs, Inhalation, 4 times a day, PRN for wheezing, # 18 Gm, 11 Refills, Maintenance, 01/13/20 11:40:00 EDT, Aerosol, [facility]/pharmacy #5, 165, cm, 11/17/19 10:08:00 EST, Height, 53.6, kg, 10/14/19 10:56:00 EST, Dry Weight Start Date: 01/13/20 Status: Ordered Yupelri 175 mcg/3 mL inhalation solution = 175 mcg, Inhalation, Daily, j44.9 please bill through med B, # 90 mL, 2 Refills, Maintenance, 08/12/21 16:05:00 EDT, [facility]/pharmacy #2024, ICD 10 J44.9, PLEASE BILL THROUGH MED B [id number], 165, cm, 06/05/21 10:01:00 EDT, Height, 61.4, kg, 03/15/... Start Date: 08/12/21 Status: Ordered ZyrTEC 10 mg oral tablet 1 tablet = 10 mg, By Mouth, Daily, PRN Sinus Symptoms, # 30 tablet, 11 Refills, Maintenance, 01/20/22 15:23:00 EDT, Tablet, [facility]/pharmacy #2025, 165, cm, 12/23/21 9:22:00 EST, Height, 54.5, kg, 10/25/21 17:05:00 EST, Dry Weight Start Date: 01/20/22 Status: Ordered Problem List Condition Confirmation Course Effective Dates Status Health Status Informant Anxiety disorder Confirmed Active Central sleep apnea Confirmed Active Chest pain Confirmed Active Chronic obstructive lung disease Confirmed Active Immunodeficiency disorder, hypogammaglobulinemia Confirmed Active Lumbar compression fracture Confirmed Active Functional bowel disorder Confirmed Active [...] ago; entered on: 09/24/19 Sex Note * Event Display: Laboratory Result Scanned Authored Date: * Event Display: Non BH Lab Results Authored Date: * Event Display: Non BH Lab Results Authored Date: * Event Display: Ultrasound Chest, Non-BH Authored Date: * Event Display: CT Scan Abdomen, Non- BH Authored Date: * Event Display: CT Scan Abdomen, Non- BH Authored Date: * Event Display: CT Scan Chest, Non- BH Authored Date: * Event Display: X-Ray Chest, Non- BH Authored Date: * Event Display: X-Ray Chest, Non- BH Authored Date: * Event Display: X-Ray Chest, Non- BH Authored Date: * Event Display: CT Scan Chest, Non- BH Authored Date: * Event Display: CT Scan Abdomen, Non- BH Authored Date: * Event Display: MRI Hand/Wrist Authored Date: * Event Display: Ultrasound Lower Extremity, Non-BH Authored Date: * Event Display: Non BH Radiology Results Authored Date: * Event Display: Radiology Result Scanned Authored Date: * Event Display: Radiology Result Scanned Authored Date: Patient Care team information Care Team Personnel Name: Joelle Castillo Position: S Onco RN Member Role: Primary Care Nurse Name: Marilee Pitts RN Position: S RN Member Role: Primary Care Nurse Name: Shawnee Schafer RN Position: [facility] SN RN Member Role: Primary Care Nurse Name: Declan Muller MD Position: [facility] Primary Care Physician Member Role: PCP Address: Address: [address] [place] [address] Adult [place] [address]- Name: Aylin Byrne RN Position: [facility] RN Member Role: Primary Care Nurse Name: Blaire Wilde RN Position: [facility] RN Supv Member Role: Primary Care Nurse Name: Edilma Metzger RN Position: [facility] RN Member Role: Primary Care Nurse Name: Katherine Bond RN Position: [facility] SN RN Member Role: Primary Care Nurse Name: Kerry Negron RN Position: [facility] RN Member Role: Primary Care Nurse Name: Joslyn Dodge RN Position: [facility] RN Member Role: Primary Care Nurse Name: Missy Avilez RN Position: [facility] Onco RN Member Role: Primary Care Nurse Name: Katina Marcus RN Position: [facility] RN Member Role: Primary Care Nurse Name: Sienna Horne RN Position: [facility] RN Member Role: Primary Care Nurse Name: Ernestine Thomas RN Position: [facility] RN Member Role: Primary Care Nurse Care Team Related Persons Name: JANICE TAYLOR Address: [address] [address]
--- OUTSIDE RECORDS SUMMARY | 2024-05-04 13:19 | XMS_ITS | Continuity of Care Document ---
Author Organization [facility] Address [address] [place] [address]- Care Team Providers Care Sql Server Architect Name Role Phone Declan Muller MD Primary Care Physician [phone] Encounter [facility] Date(s): 11/17/19 - 11/27/19 [facility] [address] [place] [address] [facility] Attending Physician: Kaleb De Leon Admitting Physician: [...] 12 08/19/08 Given 1Result Comment: DONE AT [facility] 2Result Comment: [06/22/2018] [facility] 5Admin Note: done @ clinic 6Admin Note: given w/out incident/VIS given 7Result Comment: [id number], [id number] [facility] 9Result Comment: [07/21/2014] given w/out incident 10Admin Note: [facility] INFO GIVEN TO PATIENT 11Result Comment: lot #[id number] 12Admin Note: [facility] albuterol 0.083% inhalation solution 3 mL = 2.5 mg, Inhalation, Every 6 hours, PRN for wheezing, # 360 mL, 8 Refills, Maintenance, 07/07/19 14:14:00 EDT, Solution, ICD 10 J44.9, PLEASE BILL THROUGH MED B [id number] Start Date: 07/07/19 Status: Ordered Align 4 [...] 19:25:03 EDT, Suspension, Route to Pharmacy Electronically, [id number], [facility]/pharmacy #2024 Start Date: 06/21/19 Status: Ordered calcium-vitamin [...] 12:28:00 EST, Route to Pharmacy Electronically, [facility]/pharmacy #2024, 165, cm, 10/14/19 10:56:00 EST, Height, [...] 14:23:00 EST, Route to Pharmacy Electronically, [facility]/pharmacy #2024, 165, cm, 11/04/19 8:13:00 EST, Height, 53.6, kg,... Start Date: 11/16/19 Stop Date: 11/10/20 Status: Ordered Durable Medical Equipment See Instructions, Maintenance, CPAP supplies all masks, tubing, filters, head gear, chin strap, water chamber, heated tubing, related supplies and accessories [id number] G47.33 G47.39 G47.33 G47.36DME Neftali Gibbs 02/21/18, 03/12/18 11:2... Start Date: 03/12/18 Status: Ordered gabapentin 400 mg oral capsule 400 mg, 1, capsule, By Mouth, 2 times a day, # 60 each, Refills 11, Tot. Refills 11, Maintenance, 01/14/19 14:50:28 EDT, Route to Pharmacy Electronically, [id number], [facility]/pharmacy #2024 Start Date: 01/14/19 Status: Ordered hydrochlorothiazide 25 mg oral tablet 1, tablet, By Mouth, Daily, # 90 tablet, Refills 3, Tot. Refills 0, Maintenance, 11/23/19 12:43:00 EST, Route to Pharmacy Electronically, [facility] STORE [facility], 165, cm, 11/17/19 10:08:00 EST, Height, 53.6, kg, 10/14/19 10:56:00 EST, Dry Weight Start Date: 11/23/19 Status: Ordered methadone 10 mg oral tablet See Instructions, PRN for pain, 2 tablets By Mouth in the morning, 1 tablet in the afternoon, and 3tablets by mouth in the evening 28 day schedule, # 168 each, 0 Refills, Acute 11/09/20 9:42:00 EST,11/09/19 9:41:00 EST, Tablet, [facility]/pharmacy #2024... Start Date: 11/09/19 Stop Date: 11/09/20 [...] 11/09/20 9:41:00 EST, 11/09/19 9:41:00 EST, Tablet, [facility]/pharmacy #2025, 165, cm,... Start Date: 11/09/19 Stop Date: [...] 17:40:00 EST, 10/05/19 17:39:00 EST, Tablet, [facility]/pharmacy #5, 159, cm, 09/27/19 7:38:00 EST, Height, [...] Maintenance, 08/11/1912:15:33 EDT, Route to Pharmacy Electronically, [id number], [facility]/pharmacy #2025 Tablet Start Date: 08/11/19 Status: Ordered Ventolin [...] ICD 10 J44.9,PLEASE BILL THROUGH MED B [id number] Start Date: 07/07/19 Status: Ordered ZyrTEC 10 [...]
--- OUTSIDE RECORDS SUMMARY | 2024-05-04 13:19 | XMS_ITS | Continuity of Care Document ---
Author Organization [facility] ter Address [address] [place] [address]- Care Team Providers Care Life Claims Examiner Name Role Phone Renzo GRAHAM, Declan Hou Primary Care Physician Encounter [facility] Date(s): 10/26/23 - 11/25/[address] [address] Allergies, Adverse Reactions, Alerts Substance Reaction [...] Vaccine (oldterm) 13 08/19/08 Given 1Result Comment: [facility] [id number] 2Result Comment: [06/22/2018] given at [facility] 3Location History: [facility] 4Location History: [facility] 5Admin Note: done @ clinic 6Admin Note: given w/out incident/VIS given 7Result Comment: [id number], [id number] 8Result Comment: DONE AT [facility] 10Result Comment: [07/21/2014] given w/out incident 11Admin Note: [facility] INFO GIVEN TO PATIENT 12Result Comment: lot #[id number] 13Admin Note: [facility] albuterol 0.083% inhalation solution 3 mL = 2.5 mg, Inhalation, Every 6 hours, PRN for wheezing, # 360 mL, 8 Refills, Maintenance, 07/07/19 14:14:00 EDT, Solution, ICD 10 J44.9, PLEASE BILL THROUGH MED B [id number] Start Date: 07/07/19 Status: Ordered albuterol 90 [...] 11:34:00 EDT, Suspension, Route to Pharmacy Electronically, [id number], [facility]/pharmacy #2024,... Start Date: 03/06/20 Status: Ordered calcium-vitamin D 600 mg-400 intl units oral tablet 1 tablet, By Mouth, 2 times a day, # 180 tablet, 1 Refills, Maintenance, 10/07/22 11:54:00 EST, [id number], 90, TAKE 1 TABLET BY MOUTH TWICE [...] 09/24/23 14:08:00 EST, Route to Pharmacy Electronically, [facility]/pharmacy #2024, 165, cm, 09/04/23 8:51:00 EST, [...] capsule, 11 Refills, Maintenance, 03/03/23 10:03:00 EDT, [facility]/pharmacy #2025, 165, cm, 01/21/23 10:40:00 EDT, Height, 55.8, kg, 01/23/23 8:24:00 EDT, Dry Weight Start Date: 03/03/23 Stop Date: 02/26/24 Status: Ordered duloxetine 30 mg oral enteric coated capsule 1 capsule = 30 mg, By Mouth, Daily, # 30 capsule, 11 Refills, Maintenance, 09/14/23 16:34:00 EST, Capsule, [facility]/pharmacy #2025, Partial fill upon patient request if the prescription is for a schedule II opioid drug., 165, cm, 09/04/23 8:51:00 EST, [place]. Start Date: 09/14/23 Status: Ordered gabapentin 400 mg oral capsule 1, capsule, By Mouth, 3 times a day, # 90 capsule, Refills 11, Maintenance, 10/07/22 13:28:00 EST, Route to Pharmacy Electronically, [facility] STORE [id number], 165, cm, 08/26/22 11:06:00 EST, Height, 64.7, [...] capsule, 3 Refills, Maintenance, 10/15/22 9:58:00 EST, [facility] STORE 76879, 165, cm, 10/09/22 11:32:00 EST, Height, 64.7, [...] 09/24/24 14:08:00 EST, 09/24/23 14:07:00 EST, Tablet, [facility]/pharmacy #20... Start Date: 09/24/23 Stop Date: 09/24/24 Status: Ordered nystatin 052079 u/ml oral suspension 5 mL, By Mouth, [...] 10 J44.9, PLEASE BILL THROUGH MED B [id number], 165, cm, 06/05/21 10:01:00 EDT, Height, 61.4, [...] Care Team Personnel Name: Joelle Castillo Position: [facility] Onco RN Member Role: Primary Care Nurse Name: Shawnee Schafer RN Position: [facility] SN RN Member Role: Primary Care Nurse Name: Declan Muller MD Position: [facility] Physician - Primary Care Member Role: PCP Address: Address: [address] [place] [address] [facility] [address] Name: Aylin Byrne RN Position: [facility] RN Member Role: Primary Care Nurse Name: Edilma Metzger RN Position: [facility] RN Member Role: Primary Care Nurse Name: Katherine Bond RN Position: [facility] SN RN Member Role: Primary Care Nurse Name: Gena Chavez RN Position: [facility] diesel mechanic construction Member Role: Fine Wire Drawer Name: Kerry Negron RN Position: [facility] RN Member Role: Primary Care Nurse Name: Joslyn Dodge RN Position: [facility] SN RN Member Role: Primary Care Nurse Name: Missy Avilez RN Position: [facility] Onco RN Member Role: Primary Care Nurse Name: Katina Marcus RN Position: [facility] RN Member Role: Primary Care Nurse Name: Sienna Horne RN Position: [facility] RN Member Role: Primary Care Nurse Name: Ernestine Thomas RN Position: [facility] RN Member Role: Primary Care Nurse Care Team Related Persons Name: JANICE TAYLOR Address: [address] [address]
--- OUTSIDE RECORDS SUMMARY | 2024-05-04 13:19 | XMS_ITS | Continuity of Care Document ---
Author Organization [facility] Address [address] [place] [address]- Care Team Providers Care Screener And Blender Name Role Phone Declan Muller MD Primary Care Physician Encounter [facility] Date(s): 01/04/21 - 02/03/21 [facility] [address] [place], [place] [address] Allergies, Adverse Reactions, Alerts Substance Reaction [...] Note: given w/out incident/VIS given 7Result Comment: [id number], [id number] [facility] 9Result Comment: [07/21/2014] given w/out incident 10Admin Note: [facility] INFO GIVEN TO PATIENT 11Result Comment: lot #[id number] 12Admin Note: [facility] albuterol 0.083% inhalation solution 3 mL = 2.5 mg, Inhalation, Every 6 hours, PRN for wheezing, # 360 mL, 8 Refills, Maintenance, 07/07/19 14:14:00 EDT, Solution, ICD 10 J44.9, PLEASE BILL THROUGH MED B [id number] Start Date: 07/07/19 Status: Ordered alendronate 70 [...] 11:34:00 EDT, Suspension, Route to Pharmacy Electronically, [id number], [facility]/pharmacy #2024,... Start Date: 03/06/20 Status: Ordered calcium-vitamin D 600 mg-400 intl units oral tablet See Instructions, 1 tablet By Mouth twice daily, # 60 tablet, 11 Refills, Maintenance, 07/04/20 15:50:00 EDT, Tablet, [facility]/pharmacy #2024, 1 tablet By Mouth twice daily, [...] EST, Route to Pharmacy Electronically, [facility]/pharmacy #2024, 165, cm, 05/17/20 16:00:00 EDT, Height, 66.5,... Start Date: 11/21/20 Stop Date: 11/21/21 Status: Ordered docusate sodium 100 mg oral capsule 2 capsule, By Mouth, 2 times a day, PRN NEEDED FOR CONSTIPATION FOR, # 120 capsule, 11 Refills, Maintenance, 11/21/20 16:36:00 EST, [facility]ORE 525[facility], 165, cm, 05/17/20 16:00:00 EDT, Height, 66.5, [...] EDT, Route to Pharmacy Electronically, [facility]ORE 20663, 165, cm, 12/20/20 10:40:00 EST, Height, 66.7, kg, 01/18/21 9:32:00 EDT, Dry Weight Start Date: 01/30/21 Status: Ordered losartan 50 mg oral tablet 50 mg, 1, tablet, By Mouth, Daily, # 30 tablet, Refills 6, Tot. Refills 6, Maintenance, 10/05/20 10:44:00 EST, Route to Pharmacy Electronically, [facility]/pharmacy #2025, Partial fill upon patient request if [...] 02/24/21 17:00:00 EDT, 01/25/21 8:00:00 EDT, Tablet, [facility]/pharmacy #202... Start Date: 01/25/21 Stop Date: 02/24/21 Status: Ordered naproxen 500 mg oral tablet 1 tablet = 500 mg, By Mouth, 2 times a day, PRN joint or muscle pain, # 60 tablet, 11 Refills, Acute 06/11/21 11:08:00 EDT, 06/11/20 11:08:00 EDT, Tablet, [facility]/pharmacy #2025, 165, cm, 05/17/20 16:00:00 EDT, Height, [...] Refills, Acute, 05/22/20 11:58:00 EDT, [facility], 165, cm, 05/17/20 16:00:00 EDT, Height, 67, [...] EDT, Route to Pharmacy Electronically, [facility]/pharmacy #2024 Tablet, 165, cm, 01/27/20 8:11:00 EDT, Height, 53.6, kg, 10/14/19 10:56:00 EST, Dry... Start Date: 03/02/20 Status: Ordered Ventolin HFA 108 mcg/inh inhalation aerosol with adapter 2 puffs, Inhalation, 4 times a day, PRN for wheezing, # 18 Gm, 11 Refills, Maintenance, 01/13/20 11:40:00 EDT, Aerosol, [facility]/pharmacy #2024, 165, cm, 11/17/19 10:08:00 EST, Height, 53.6, kg, 10/14/19 10:56:00 EST, Dry Weight Start Date: 01/13/20 Status: Ordered Yupelri 175 mcg/3 mL inhalation solution = 175 mcg, Inhalation, Daily, j44.9 please bill through med B, # 120 mL, 3 Refills, Maintenance, 01/22/21 8:54:00 EDT, [facility]/pharmacy #2024, ICD 10 J44.9, PLEASE BILL THROUGH MED B [id number], 165, cm, 12/20/20 10:40:00 EST, Height, 66.7, kg, 01/18/... Start Date: 01/22/21 Status: Ordered Zithromax 250 mg oral tablet See Instructions, 1 tablet By Mouth Daily on thursday, thursday, and thursday, # 12 tablet, 11 Refills, Maintenance, 07/11/20 12:50:00 EDT, Tablet, [facility]/pharmacy #2024, 165, cm, 05/17/20 16:00:00 EDT, Height, [...]
--- OUTSIDE RECORDS SUMMARY | 2024-05-04 13:19 | XMS_ITS | Continuity of Care Document ---
Author Organization [facility] Address [address] [place] [address]- Care Team Providers Care Mold Hoister Name Role Phone Declan Muller MD Primary Care Physician Encounter [facility] Date(s): 04/30/20 - 06/06/21 [facility] [address] [place] [address]- Discharge Disposition: A-D/C Home Attending Physician: Heide GRAHAM(Hem/Onc), Fercho Corral Admitting Physician: Heide GRAHAM(Hem/Onc)Fercho Referring Physician: Declan Muller MD Allergies, Adverse [...] 12 08/19/08 Given 1Result Comment: DONE AT [facility] 2Result Comment: [06/22/2018] given at [facility] 3[facility] 5Admin Note: done @ clinic 6Admin Note: given w/out incident/VIS given 7Result Comment: [id number], [id number] 8[facility] 9Result Comment: [07/21/2014] given w/out incident 10Admin Note: [facility] INFO GIVEN TO PATIENT 11Result Comment: lot #[id number] 12Admin Note: [facility] albuterol 0.083% inhalation solution 3 mL = 2.5 mg, Inhalation, Every 6 hours, PRN for wheezing, # 360 mL, 8 Refills, Maintenance, 07/07/19 14:14:00 EDT, Solution, ICD 10 J44.9, PLEASE BILL THROUGH MED B [id number] Start Date: 07/07/19 Status: Ordered alendronate 70 [...] 11:34:00 EDT, Suspension, Route to Pharmacy Electronically, [id number], [facility]/pharmacy #2024,... Start Date: 03/06/20 Status: Ordered calcium-vitamin D 600 mg-400 intl units oral tablet See Instructions, 1 tablet By Mouth twice daily, # 60 tablet, 11 Refills, Maintenance, 07/04/20 15:50:00 EDT, Tablet, [facility]/pharmacy #2024, 1 tablet By Mouth twice [...] 11/21/20 12:23:00 EST, Route to Pharmacy Electronically, [facility]/pharmacy #2024, 165, cm, 05/17/20 16:00:00 EDT, Height, 66.5,... Start Date: 11/21/20 Stop Date: 11/21/21 Status: Ordered docusate sodium 100 mg oral capsule 2 capsule, By Mouth, 2 times a day, PRN NEEDED FOR CONSTIPATION FOR, # 120 capsule, 11 Refills, Maintenance, 11/21/20 16:36:00 EST, [facility] STORE 63307, 165, cm, 05/17/20 16:00:00 EDT, Height, 66.5, [...] 01/30/21 11:23:00 EDT, Route to Pharmacy Electronically, [facility], 165, cm, 12/20/20 10:40:00 EST, Height, 66.7, [...] 06/17/21 17:00:00 EDT, 05/17/21 8:06:00 EDT, Tablet, [facility]/pharmacy #202... Start Date: 05/17/21 Stop Date: 06/17/21 Status: Ordered naproxen 500 mg oral tablet 1 tablet = 500 mg, By Mouth, 2 times a day, PRN joint or muscle pain, # 60 tablet, 11 Refills, Acute 06/11/21 11:08:00 EDT, 06/11/20 11:08:00 EDT, Tablet, [facility]/pharmacy #2025, 165, cm, 05/17/20 16:00:00 EDT, Height, [...] 06/17/21 17:00:00 EDT, 05/17/21 8:06:00 EDT, Tablet, [facility]/pharmacy #202, refill... Start Date: 05/17/21 Stop Date: [...] opioid drug. Start Date: 06/05/21 Status: Ordered Tylenol 325 mg oral tablet 650 mg, Tablet, By Mouth, 11/09/20 8:00:00 EST, Stop date 11/09/20 8:00:00 EST Start Date: 11/09/20 Stop Date: 11/23/20 Status: Completed Ventolin HFA 108 mcg/inh inhalation aerosol with adapter 2 puffs, Inhalation, 4 times a day, PRN for wheezing, # 18 Gm, 11 Refills, Maintenance, 01/13/20 11:40:00 EDT, Aerosol, [facility]/pharmacy #2024, 165, cm, 11/17/19 10:08:00 EST, Height, 53.6, kg, 10/14/19 10:56:00 EST, Dry Weight Start Date: 01/13/20 Status: Ordered Yupelri 175 mcg/3 mL inhalation solution = 175 mcg, Inhalation, Daily, j44.9 please bill through med B, # 120 mL, 3 Refills, Maintenance, 01/22/21 8:54:00 EDT, [facility], ICD 10 J44.9, PLEASE BILL THROUGH MED B [id number], 165, cm, 12/20/20 10:40:00 EST, Height, 66.7, [...] Range]: 1 2 3 Height 165 cm (04/22/21 8:16 AM) 165 cm (03/15/21 10:38 AM) 165 cm (12/20/20 9:58 AM) Weight 61.4 kg (03/15/21 10:38 AM) 66.5 kg (12/20/20 9:58 AM) 66.2 kg (10/25/20 8:37 AM) Oxygen Saturation [94-100 %] 97 % (04/22/21 8:16 AM) 99 % (03/15/21 10:38 AM) 97 % (05/01/20 10:40 AM) Pulse Rate [55-90 bpm] 81 bpm (04/22/21 8:16 AM) 81 bpm (03/15/21 10:38 AM) 108 bpm *H* (05/01/20 10:40 AM) Body Mass Index [18.5-24.99] 22.55 (03/15/21 10:38 AM) 24.61 (05/01/20 10:40 AM) Blood Pressure [90-138/55-84 mm Hg] 123/72mm Hg (04/22/21 8:16 AM) 129/82mm Hg (03/15/21 10:38 AM) 141/98mm Hg *H* (05/01/20 10:40 AM) Respiratory Rate [16-30 br/min] 21 br/min (04/22/21 8:16 AM) 18 br/min (03/15/21 10:38 AM) 18 br/min (11/23/20 10:09 AM) Temperature [96.8-100.4 DegF] 97.5 DegF (04/22/21 8:16 AM) 97.1 DegF (03/15/21 10:38 AM) 96.7 DegF *L* (05/01/20 10:40 AM) Liters per Minute 3 L/min (05/01/20 10:40 AM) Mode of Delivery (Oxygen) Room air (04/22/21 8:16 AM) Room air (03/15/21 10:38 AM) Nasal cannula (05/01/20 10:40 AM) Blood pressure sites Arm, right (04/22/21 8:16 AM) Arm, left (03/15/21 10:38 AM) Arm, left (05/01/20 10:40 AM) Temperature Route Temporal (04/22/21 8:16 AM) Temporal (03/15/21 10:38 AM) Temporal (05/01/20 10:40 AM) Dry Weight 61.4 kg (03/15/21 10:38 AM) 66.7 kg (01/18/21 9:32 AM) 66.5 kg (12/20/20 9:58 AM) Weight Obtained Via Standing scale (03/15/21 10:38 AM) Standing scale (05/01/20 10:40 AM) Dry Weight Obtained Via Standing scale (03/15/21 10:38 AM) Standing scale (07/30/20 7:58 AM) Standing scale (05/01/20 10:40 AM) Social History Social History Type Response Smoking Status Former smoker, quit more than 30 days ago; Other: quit 20 years ago; entered on: 09/24/19 Sex
--- OUTSIDE RECORDS SUMMARY | 2024-05-04 13:20 | XMS_ITS | Continuity of Care Document ---
Author Organization [facility] Address [address] [place] [address]- Care Team Providers Care Conche Loader And Unloader Name Role Phone Declan Muller MD Primary Care Physician Encounter [facility] Date(s): 08/19/22 - 08/26/22 [facility] [address] [place] [address]- Encounter Diagnosis Right arm pain(Discharge Diagnosis) - 08/19/22 Attending Physician: Declan Muller MD Allergies, Adverse [...] Vaccine (oldterm) 13 08/19/08 Given 1Result Comment: [facility] [id number] 2Result Comment: [06/22/2018] given at [facility] 3Location History: [facility] 4Location History: [facility] 5Admin Note: done @ clinic 6Admin Note: given w/out incident/VIS given 7Result Comment: [id number], [id number] 8Result Comment: DONE AT [facility] 10Result Comment: [07/21/2014] given w/out incident 11Admin Note: [facility] INFO GIVEN TO PATIENT 12Result Comment: lot #[id number] 13Admin Note: [facility] albuterol 0.083% inhalation solution 3 mL = 2.5 mg, Inhalation, Every 6 hours, PRN for wheezing, # 360 mL, 8 Refills, Maintenance, 07/07/19 14:14:00 EDT, Solution, ICD 10 J44.9, PLEASE BILL THROUGH MED B [id number] Start Date: 07/07/19 Status: Ordered albuterol 90 mcg/inh inhalation aerosol 0 Refills, Maintenance Start Date: 04/30/20 Status: Ordered Ativan 1 mg oral tablet 1 tablet = 1 mg, By Mouth, 3 times a day, PRN for anxiety, # 84 each, 0 Refills, Acute 08/18/23 16:50:00 EDT, 08/18/22 16:49:00 EDT, Tablet, [facility], 165, cm, 04/17/22 13:32:00 EDT, Height, 64.1, kg, 08/08/22 8:22:00 EDT, Dry Weight Start Date: 08/18/22 Stop Date: 08/18/23 Status: Ordered Brovana 15 mcg/2 mL inhalation solution 1 each, Neb, 2 times a day, not to exceed 2 doses/day do not swallow, # 60 each, 1 Refills, Maintenance, 04/24/20 16:53:00 EDT, Solution, [facility], ICD Code J44.9, 165, cm, 03/12/20 8:39:00EDT, Height, 70.7, kg, 03/08/20 16:16:00 EDT, Dry... Start Date: 04/24/20 Status: Ordered budesonide 0.25 mg/2 mL inhalation suspension 0.25 mg, 2, mL, Neb, 2 times a day, for COPD J44.9. rinse mouth after use, # 120 mL, Refills 6, Tot. Refills 6, Maintenance, 03/06/20 11:34:00 EDT, Suspension, Route to Pharmacy Electronically, [id number], [facility]/pharmacy #202,... Start Date: 03/06/20 Status: Ordered calcium-vitamin [...] Refills,Maintenance, 08/19/22 11:00:00 EDT, EC Tablet, [facility], Partial fill upon patient [...] Replace Required Details, Route to Pharmacy Electronically, [facility]/pharmacy #0447, dose increase, refill when ne... Start Date: 07/30/22 Status: Ordered Linzess 145 mcg oral capsule 1 capsule = 145 mcg, By Mouth, Daily, # 90 capsule, 3 Refills, Maintenance, 07/18/22 14:14:00 EDT, Capsule, [facility]/pharmacy #0447, Partial fill upon patient request if the prescription is for a scheduleII opioid drug., 165, cm, 04/17/22 13:32:00 EDT, He... Start Date: 07/18/22 Status: Ordered Linzess 290 mcg oral capsule 1 capsule = 290 mcg, By Mouth, Daily, # 30 capsule, 3 Refills, Maintenance, 06/27/22 13:21:00 EDT, Capsule, [facility]/pharmacy #2025, Partial fill upon patient request if the prescription is for a scheduleII opioid drug., 165, cm, 04/17/22 13:32:00 EDT, He... Start Date: 06/27/22 Status: Ordered Linzess 290 mcg oral capsule 1 capsule, By Mouth, Daily, # 30 capsule, 3 Refills, Maintenance, 06/24/22 12:21:00 EDT, [facility], 165, cm, 04/17/22 13:32:00 EDT, Height, 60.6, kg, 04/18/22 8:40:00 EDT, Dry Weight Start Date: 06/24/22 Status: Ordered methadone 10 mg oral tablet See Instructions, PRN for pain, 2 tablets By Mouth in the morning, 1 tablet in the afternoon, and 3tablets by mouth in the evening 28 day schedule, # 168 each, 0 Refills, Acute 08/18/23 16:50:00 EDT, 08/18/22 16:50:00 EDT, Tablet, [facility] Start Date: 08/18/22 Stop Date: 08/18/23 Status: Ordered nystatin 580801 u/ml oral suspension 5 mL, By Mouth, 4 times a day, # 480 mL, 1 Refills, [facility], 165, cm, 03/28/22 11:14:00 EDT, Height, 60.4, kg, 03/06/22 10:48:00 EDT, Dry Weight Start Date: 04/17/22 Status: Ordered oxyCODONE 10 mg oral tablet 2 tablet = 20 mg, By Mouth, Every 4 hours, PRN as needed for pain, 28 day prescription patient may fill for less than quantity prescribed, # 224 tablet, 0 Refills, Acute 08/18/23 16:51:00 EDT, 08/18/22 16:51:00 EDT, Tablet, [facility], refill... Start Date: 08/18/22 Stop Date: 08/18/23 Status: Ordered pantoprazole 40 mg oral delayed [...] Acute 05/08/23 16:01:00EDT, 05/08/22 16:00:00 EDT, Cream, [facility]/pharmacy #2025, Partial fill upon patient request if the prescription is for a schedule II opioid drug., 1 appli... Start Date: 05/08/22 Stop Date: 05/08/23 Status: Ordered Ventolin HFA 108 mcg/inh inhalation aerosol with adapter 2 puffs, Inhalation, 4 times a day, PRN for wheezing, # 18 Gm, 11 Refills, Maintenance, 01/13/20 11:40:00 EDT, Aerosol, [facility]/pharmacy #2024, 165, cm, 11/17/19 10:08:00 EST, Height, 53.6, kg, 10/14/19 10:56:00 EST, Dry Weight Start Date: 01/13/20 Status: Ordered Yupelri 175 mcg/3 mL inhalation solution = 175 mcg, Inhalation, Daily, j44.9 please bill through med B, # 90 mL, 2 Refills, Maintenance, 08/12/21 16:05:00 EDT, [facility], ICD 10 J44.9, PLEASE BILL THROUGH MED B [id number], 165, cm, 06/05/21 10:01:00 EDT, Height, 61.4, kg, 03/15/... Start Date: 08/12/21 Status: Ordered ZyrTEC 10 mg oral tablet 1 tablet = 10 mg, By Mouth, Daily, PRN Sinus Symptoms, # 30 tablet, 11 Refills, Maintenance, 01/20/22 15:23:00 EDT, Tablet, [facility]/pharmacy #2025, 165, cm, 12/23/21 9:22:00 EST, Height, [...] Diagnosis Diagnosis Type Effective Dates Health Status inical Service Informant Right arm pain Discharge Diagnosis 08/19/22 Vital Signs Most recent to oldest [Reference Range]: 1 Height 165 cm (08/19/22 10:37 AM) Weight 65.2 kg (08/19/22 10:37 AM) Oxygen Saturation [94-100 %] 96 % (08/19/22 10:37 AM) Pulse Rate [55-90 bpm] 104 bpm *H* (08/19/22 10:37 AM) Body Mass Index [18.5-24.99 kg/m2] 23.95 kg/m2 (08/19/22 10:37 AM) Blood Pressure [90-138/55-84 mm Hg] 114/ 84mm Hg (08/19/22 10:37 AM) Respiratory Rate [16-30 br/min] 18 br/mi n (08/19/22 10:37 AM) Mode of Delivery (Oxygen) Room air (08/19/22 10:37 AM) Blood pressure sites Arm, left (08/19/22 10:37 AM) Weight Obtained Via Standing scale (08/19/22 10:37 AM) Social History Social History Type Response Smoking Status Former smoker, quit more than 30 days ago; Other: quit 20 years ago; entered on: 09/24/19 Sex Note * Aylin King: PERFORM, SIGN, VERIFY Event Display: Patient Education/Instruction Authored Date: [facility] *[facility] Clinical Summary Name KARYN TAYLOR Age 62 Years 1960 PCP Declan Muller MD PCP Visit Date 08/19/2022 10:36:00 Additional Instructions: Scheduled Appointments?? Future Appointments ?*[facility] ?[address] ?[place],??[place],??[address] ?Phone:??--?Fax:??-- ?Appt. Date:??09/18/2022?11:30 AM ?Scheduled Provider:??Liya GRAHAM, Marge Roberts Follow-Up Instructions ?? Diagnosis Medications: Please continue your medications until treatment is completed or stopped by your provider. Discuss any questions related to medications with your provider. New Medications [facility]/pharmacy #2024, [address], [place] [id number], [phone] Diclofenac (diclofenac sodium 75 mg oral delayed release tablet) 1 tab(s) Oral twice a day as needed rib or arm pain. with food. Refills: 11. Next Dose: Medications to Continue with No [...] needed Sinus Symptoms. Refills: 11. Next Dose: Docusate (docusate sodium 100 mg oral capsule) 2 capsule Oral twice a day as needed NEEDED FOR CONSTIPATION FOR for 30 Days. Refills: 5. Next Dose: Duloxetine (duloxetine 30 mg oral enteric coated capsule) 1 capsule Oral Daily. Next Dose: Gabapentin (gabapentin 400 mg oral capsule) 1 capsule By Mouth 4 times a day. Refills: 11. Next Dose: linaclotide (Linzess 145 mcg oral capsule) 1 capsule Oral Daily. Refills: 3. Next Dose: linaclotide (Linzess 290 mcg oral capsule) 1 capsule Oral Daily. Refills: 3. Next Dose: linaclotide (Linzess 290 mcg oral capsule) 1 [...] pain. Refills: 0. Next Dose: Nystatin (nystatin 671570 u/ml oral suspension) 5 Milliliter Oral 4 [...] needed skin rash. Refills: 1. Next Dose: Allergy Info:?? Bactrim DS; Levaquin; Augmentin Medications Given This Visit Medication Dose Route influenza virus vaccine, inactivated (influenza virus, inactivated vacc) 0.5 mL Intramuscular Future Orders ?No future orders Vital Signs Height 165 cm Weight 65.2 kg BMI 23.95 kg/m2 Blood Pressure 114 mm Hg/84 mm Hg Temperature Pulse Rate 104 bpm Respiratory Rate 18 br/min 02 Sat Mode of Delivery 96 %/Room air You can now view a summary of your hospital visit from the comfort of your home through a free online portal called [employer]. [employer] is a website that allows you to securely view your medical information including discharge summary, medications and follow-up visits. ??You can alsosend a secure electronic message to your doctor???s office to request appointments, renew medications or just ask a question. You can enroll at [email or web address] or register during your next office [...] primary care provider, you may find a [facility] provider by calling [facility] at [phone]. For information about the plan of care [...] Care Team Personnel Name: Joelle Castillo Position: [place] RN Member Role: Primary Care Nurse Name: Marilee Pitts RN Position: S RN Member Role: Primary Care Nurse Name: Shawnee Schafer RN Position: [facility] SN RN Member Role: Primary Care Nurse Name: Declan Muller MD Position: [facility] Primary Care Physician Member Role: PCP Address: Address: [address] [place] [address] Adult & [place] [address]- Name: Aylin Byrne RN Position: [facility] [...] Team Related Persons Name: JANICE TAYLOR Address: [address] [address]
--- OUTSIDE RECORDS SUMMARY | 2024-05-04 13:20 | XMS_ITS | Continuity of Care Document ---
Author Organization [facility] Address [address] [place] [address]- Care Team Providers Care Electrolysist Name Role Phone Renzo GRAHAM, Declan Hou Primary Care Physician Encounter [facility] Date(s): 10/24/21 - 11/23/21 [facility] [address] [place] [address]- Allergies, Adverse Reactions, Alerts Substance Reaction Severity [...] 12 08/19/08 Given 1Result Comment: DONE AT [facility] 2Result Comment: [06/22/2018] given at [facility] 3Location History: [facility] 4Location History: [facility] 5Admin Note: done @ clinic 6Admin Note: given w/out incident/VIS given 7Result Comment: [id number], [id number] [facility] 9Result Comment: [07/21/2014] given w/out incident 10Admin Note: [facility] INFO GIVEN TO PATIENT 11Result Comment: lot #[id number] 12Admin Note: [facility] albuterol 0.083% inhalation solution 3 mL = 2.5 mg, Inhalation, Every 6 hours, PRN for wheezing, # 360 mL, 8 Refills, Maintenance, 07/07/19 14:14:00 EDT, Solution, ICD 10 J44.9, PLEASE BILL THROUGH MED B [id number] Start Date: 07/07/19 Status: Ordered alendronate 70 [...] 11:34:00 EDT, Suspension, Route to Pharmacy Electronically, [id number], [facility]/pharmacy #202,... Start Date: 03/06/20 Status: Ordered calcium-vitamin D 600 mg-400 intl units oral tablet See Instructions, 1 tablet By Mouth twice daily, # 60 tablet, 11 Refills, Maintenance, 10/28/21 10:33:00 EST, Tablet, [facility]/pharmacy #2024, 1 tablet By Mouth twice daily, 165, cm, 10/25/21 17:56:00 EST, Height, 54.5, kg, 10/25/21 17:05:00 EST, Dry Weight Start Date: 10/28/21 Status: Ordered Citrate of Magnesia 8.85% oral liquid See Instructions, 30 mL By Mouth Once daily as needed for constipation, # 300 mL, 1 Refills, Soft Stop, 10/02/21 17:13:00 EST, Liquid, [facility]/pharmacy #2024, Partial fill upon patient request if the prescription is for a schedule II opioid drug., 30 mL B... Start Date: 10/02/21 Status: Ordered cyclobenzaprine 10 mg oral tablet 1, tablet, By Mouth, Daily, PRN, # 30 tablet, Refills 11, NEEDED FOR PAIN, Route to Pharmacy Electronically, [facility], 165, cm, 10/25/21 17:56:00 EST, Height, 54.5, kg, 10/25/21 17:05:00 EST, Dry Weight Start Date: 11/06/21 Status: Ordered docusate sodium 100 mg oral capsule 2 capsule, By Mouth, 2 times a day, PRN NEEDED FOR CONSTIPATION FOR, # 120 capsule, 11 Refills, Maintenance, 11/21/20 16:36:00 EST, [facility], 165, cm, 05/17/20 16:00:00 EDT, Height, 66.5, kg, 09/21/20 8:46:00 EST, Dry Weight Start Date: 11/21/20 Stop Date: 12/21/20 Status: Ordered duloxetine 20 mg oral enteric coated capsule 1 capsule = 20 mg, By Mouth, Daily, # 30 capsule, 11 Refills, Maintenance, 07/16/21 15:55:00 EDT, Capsule, [facility]/pharmacy #2025, Partial fill upon patient request if the prescription is for a schedule II opioid drug., 165, cm, 06/05/21 10:01:00 EDT, Hei... Start Date: 07/16/21 Status: Ordered gabapentin 400 mg oral capsule 1, capsule, By Mouth, 3 times a day, # 90 each, Refills 11, Tot. Refills 11, Maintenance, 09/09/21 11:35:00 EST, Route to Pharmacy Electronically, [facility]/pharmacy #202, dose increase, refill when needed, 165, cm, 09/09/21 11:19:00 EST, Height, 61.4, kg,... Start Date: 09/09/21 Status: Ordered methadone 10 mg oral tablet See Instructions, PRN for pain, 2 tablets By Mouth in the morning, 1 tablet in the afternoon, and 3tablets by mouth in the evening 28 day schedule, # 168 each, 0 Refills, Acute 12/06/21 17:00:00 EST, 11/05/21 8:24:00 EST, Tablet, [facility]/pharmacy #202... Start Date: 11/05/21 Stop Date: 12/06/21 Status: Ordered oxyCODONE 10 mg oral tablet 2 tablet = 20 mg, By Mouth, Every 4 hours, PRN as needed for pain, 28 day prescription patient may fill for less than quantity prescribed, # 224 tablet, 0 Refills, Acute 12/06/21 17:00:00 EST, 11/05/21 8:24:00 EST, Tablet, [facility]/pharmacy #2025, refill... Start Date: 11/05/21 Stop Date: 12/06/21 Status: Ordered pantoprazole 40 mg oral delayed [...] 10 J44.9, PLEASE BILL THROUGH MED B [id number], 165, cm, 06/05/21 10:01:00 EDT, Height, 61.4, [...]
--- OUTSIDE RECORDS SUMMARY | 2024-05-04 13:20 | XMS_ITS | Continuity of Care Document ---
Author Organization [facility] Address [address] [place] [address]- Care Team Providers Care Glassware Defect Repairer Name Role Phone Declan Muller MD Primary Care Physician Encounter [facility] Date(s): 04/05/20 - 05/05/20 [facility] [address] [place] [address]- [facility] Attending Physician: Kaleb De Leon Admitting [...] Note: given w/out incident/VIS given 7Result Comment: [id number], [id number] [facility] 9Result Comment: [07/21/2014] given w/out incident 10Admin Note: [facility] INFO GIVEN TO PATIENT 11Result Comment: lot #[id number] 12Admin Note: [facility] albuterol 0.083% inhalation solution 3 mL = 2.5 mg, Inhalation, Every 6 hours, PRN for wheezing, # 360 mL, 8 Refills, Maintenance, 07/07/19 14:14:00 EDT, Solution, ICD 10 J44.9, PLEASE BILL THROUGH MED B [id number] Start Date: 07/07/19 Status: Ordered alendronate 70 [...] 11:34:00 EDT, Suspension, Route to Pharmacy Electronically, [id number], [facility]/pharmacy #2024,... Start Date: 03/06/20 [...] 04/23/20 15:59:00 EDT, Route to Pharmacy Electronically, [facility]/pharmacy #2024, 165, cm, 03/12/20 8:39:00 EDT, Height, 70.7, kg, 05/... Start Date: 04/23/20 Stop Date: 05/22/20 Status: [...] Replace Required Details, Route to Pharmacy Electronically, [facility]/pharmacy #2024... Start Date: 03/02/20 Status: Ordered [...] 02/22/20 10:31:00 EDT, Route to Pharmacy Electronically, [facility]/pharmacy #2025, 165, cm, 01/27/20 8:11:00 EDT, Height, 53.6, kg, 10/14/19 10:56:00 EST, Dry... Start Date: 02/22/20 Status: Ordered methadone 10 mg oral tablet See Instructions, PRN for pain, 2 tablets By Mouth in the morning, 1 tablet in the afternoon, and 3tablets by mouth in the evening 28 day schedule, # 168 each, 0 Refills, Acute 05/22/20 17:00:00 EDT, 04/23/20 9:58:00 EDT, Tablet, [facility]/pharmacy #202... Start Date: 04/23/20 Stop Date: 05/22/20 Status: Ordered oxyCODONE 10 mg oral tablet 2 tablet = 20 mg, By Mouth, Every 4 hours, PRN as needed for pain, 28 day prescription patient may fill for less than quantity prescribed, # 224 tablet, 0 Refills, Acute 05/22/20 17:00:00 EDT, 04/23/20 9:58:00 EDT, Tablet, [facility]/pharmacy #2025, 165, cm... Start Date: 04/23/20 Stop [...] each, 11 Refills,Maintenance, 04/02/20 11:09:00 EDT, Tablet, [facility]/pharmacy #202, 165, cm, 03/12/20 8:39:00 EDT, Height, 70.7, [...] 03/02/2017:09:00 EDT, Route to Pharmacy Electronically, [facility]/pharmacy #2024 Tablet, 165, cm, 01/27/20 8:11:00 EDT, Height, 53.6, kg, 10/14/19 10:56:00 EST, Dry... Start Date: 03/02/20 Status: Ordered triamcinolone 0.1% topical cream 1 application, Topically, 3 times a day, PRN psoriasis rash, # 60 Gm, 5 Refills, Acute 01/01/21 10:47:00 EDT, 01/02/20 10:46:00 EDT, Cream, [facility]/pharmacy #2024, 1 application Topically 3 times a day,PRN:psoriasis rash, 165, cm, 11/17/19 10:08:00 EST, H... Start Date: 01/02/20 Stop Date: 01/01/21 Status: Ordered Ventolin HFA 108 mcg/inh inhalation aerosol with adapter 2 puffs, Inhalation, 4 times a day, PRN for wheezing, # 18 Gm, 11 Refills, Maintenance, 01/13/20 11:40:00 EDT, Aerosol, [facility]/pharmacy #202, 165, cm, 11/17/19 10:08:00 EST, Height, 53.6, kg, 10/14/19 10:56:00 EST, Dry Weight Start Date: 01/13/20 Status: Ordered Yupelri 175 mcg/3 mL inhalation solution = 175 mcg, Inhalation, Daily, j44.9, # 360 mL, 6 Refills, Maintenance, 03/06/20 11:37:00 EDT, [facility], ICD 10 J44.9, PLEASE BILL THROUGH MED B [id number], 165, cm, 01/27/20 8:11:00 EDT, Height, 53.6, [...]
--- OUTSIDE RECORDS SUMMARY | 2024-05-04 13:20 | XMS_ITS | Continuity of Care Document ---
Author Organization [facility] Address [address] [place] [address]- Care Team Providers Care Director Global Sales Name Role Phone Declan Muller MD Primary Care Physician [phone] [place] [facility] Date(s): 01/13/20 - 01/20/20 [facility] [address] [place] [address]- [facility] Encounter Diagnosis Chronic obstructive lung disease(Discharge Diagnosis) - 01/13/20 Immunodeficiency disorder, hypogammaglobulinemia(Discharge Diagnosis) - 01/13/20 Lumbar radiculopathy(Discharge Diagnosis) - 01/13/20 GERD - Gastro-esophageal reflux disease(Discharge Diagnosis) - 01/13/20 Attending Physician: Declan Muller MD Allergies, Adverse [...] 12 08/19/08 Given 1Result Comment: DONE AT [facility] 2Result Comment: [06/22/2018] given at [facility] 3Location History: [facility] 4Location History: [facility] 5Admin Note: done @ clinic 6Admin Note: given w/out incident/VIS given 7Result Comment: [id number], [id number] [facility] 9Result Comment: [07/21/2014] given w/out incident 10Admin Note: [facility] INFO GIVEN TO PATIENT 11Result Comment: lot #[id number] 12Admin Note: [facility] albuterol 0.083% inhalation solution 3 mL = 2.5 mg, Inhalation, Every 6 hours, PRN for wheezing, # 360 mL, 8 Refills, Maintenance, 07/07/19 14:14:00 EDT, Solution, ICD 10 J44.9, PLEASE BILL THROUGH MED B [id number] Start Date: 07/07/19 Status: Ordered Align 4 mg oral capsule 1 capsule = 4 mg, By Mouth, Daily, # 28 capsule, 11 Refills, Maintenance, 10/14/19 11:20:00 EST, Capsule, [facility]/pharmacy #2025, 165, cm, 10/14/19 10:56:00 EST, Height, 53.6, kg, 10/14/19 10:56:00 EST, Dry Weight Start Date: 10/14/19 Status: Ordered Ativan 1 mg oral tablet 1 tablet = 1 mg, By Mouth, 3 times a day, PRN for anxiety, # 84 each, 0 Refills, Acute 01/01/21 10:43:00 EDT, 01/02/20 10:43:00 EDT, Tablet, [facility]/pharmacy #2025, 165, cm, 11/17/19 10:08:00 EST, Height, [...] 19:25:03 EDT, Suspension, Route to Pharmacy Electronically, [id number], [facility]/pharmacy #2024 Start Date: 06/21/19 Status: Ordered [...] 10/26/19 12:28:00 EST, Route to Pharmacy Electronically, [facility]/pharmacy #2024, 165, cm, 10/14/19 10:56:00 EST, [...] 11/16/19 14:23:00 EST, Route to Pharmacy Electronically, [facility]/pharmacy #2024, 165, cm, 11/04/19 8:13:00 EST, Height, 53.6, kg,... Start Date: 11/16/19 Stop Date: 11/10/20 Status: Ordered Durable Medical Equipment See Instructions, Maintenance, CPAP supplies all masks, tubing, filters, head gear, chin strap, water chamber, heated tubing, related supplies and accessories [id number] G47.33 G47.39 G47.33 G47.36DME Neftali Gibbs 02/21/18, 03/12/18 11:2... Start Date: 03/12/18 Status: Ordered gabapentin 400 mg oral capsule 400 mg, 1, capsule, By Mouth, 2 times a day, # 60 each, Refills 11, Tot. Refills 11, Maintenance, 01/14/19 14:50:28 EDT, Route to Pharmacy Electronically, [id number], [facility]/pharmacy #2024 Start Date: 01/14/19 Status: Ordered hydrochlorothiazide 25 mg oral tablet 1, tablet, By Mouth, Daily, # 90 tablet, Refills 3, Tot. Refills 0, Maintenance, 11/23/19 12:43:00 EST, Route to Pharmacy Electronically, [facility] STORE 9[facility], 165, cm, 11/17/19 10:08:00 EST, Height, 53.6, kg, 10/14/19 10:56:00 EST, Dry Weight Start Date: 11/23/19 Status: Ordered methadone 10 mg oral tablet See Instructions, PRN for pain, 2 tablets By Mouth in the morning, 1 tablet in the afternoon, and 3tablets by mouth in the evening 28 day schedule, # 168 each, 0 Refills, Acute 01/01/21 10:42:00 EDT, 01/02/20 10:42:00 EDT, Tablet, [facility]/pharmacy #20... Start Date: 01/02/20 Stop Date: [...] 01/30/20 17:00:00 EDT, 01/02/20 10:40:00 EDT, Tablet, [facility]/pharmacy #2025, 165, c... Start Date: 01/02/20 Stop Date: [...] 10/05/20 17:40:00 EST, 10/05/19 17:39:00 EST, Tablet, [facility]/pharmacy #2025, 159, cm, 09/27/19 7:38:00 EST, Height, 48.2, [...] Maintenance, 08/11/1912:15:33 EDT, Route to Pharmacy Electronically, [id number], [facility]/pharmacy #2024 Tablet Start Date: 08/11/19 Status: Ordered triamcinolone 0.1% topical cream 1 application, Topically, 3 times a day, PRN psoriasis rash, # 60 Gm, 5 Refills, Acute 01/01/21 10:47:00 EDT, 01/02/20 10:46:00 EDT, Cream, [facility]/pharmacy #2024, 1 application Topically 3 times [...] 10 J44.9, PLEASE BILL THROUGH MED B [id number], 165, cm, 11/17/19 10:08:00 EST, Height,53.6, kg, [...] Informant Chronic obstructive lung disease Discharge Diagnosis 01/13/20 Immunodeficiency disorder, hypogammaglobulinemia Discharge Diagnosis 01/13/20 Lumbar radiculopathy Discharge Diagnosis 01/13/20 GERD - Gastro-esophageal reflux disease Discharge Diagnosis 01/13/20 Social History Social History Type Response Smoking Status Former smoker, quit more than 30 days ago; Other: quit 20 years ago; entered on: 09/24/19 Sex
--- OUTSIDE RECORDS SUMMARY | 2024-05-04 13:20 | XMS_ITS | Continuity of Care Document ---
Author Organization [facility] Address [address] [place] [address]- Care Team Providers Care Optical Engineering Manager Name Role Phone Declan Muller MD Primary Care Physician Encounter [facility] [place] Date(s): 03/27/20 - 04/28/20 [facility] [address] [place] [address]- [facility] Attending Physician: Declan Muller MD Allergies, Adverse [...] Note: given w/out incident/VIS given 7Result Comment: [id number], [id number] [facility] 9Result Comment: [07/21/2014] given w/out incident 10Admin Note: [facility] INFO GIVEN TO PATIENT 11Result Comment: lot #[id number] 12Admin Note: [facility] albuterol 0.083% inhalation solution 3 mL = 2.5 mg, Inhalation, Every 6 hours, PRN for wheezing, # 360 mL, 8 Refills, Maintenance, 07/07/19 14:14:00 EDT, Solution, ICD 10 J44.9, PLEASE BILL THROUGH MED B [id number] Start Date: 07/07/19 Status: Ordered alendronate 70 [...] 11:34:00 EDT, Suspension, Route to Pharmacy Electronically, [id number], [facility]/pharmacy #2024,... Start Date: 03/06/20 Status: Ordered [...] 04/23/20 15:59:00 EDT, Route to Pharmacy Electronically, [facility]/pharmacy #2024, 165, cm, 03/12/20 8:39:00 EDT, [...] Replace Required Details, Route to Pharmacy Electronically, [facility]/pharmacy #2024... Start Date: 03/02/20 Status: Ordered [...] 02/22/20 10:31:00 EDT, Route to Pharmacy Electronically, [facility]/pharmacy #2025, 165, cm, 01/27/20 8:11:00 EDT, [...] 05/22/20 17:00:00 EDT, 04/23/20 9:58:00 EDT, Tablet, [facility]/pharmacy #202... Start Date: 04/23/20 Stop Date: 05/22/20 Status: Ordered oxyCODONE 10 mg oral tablet 2 tablet = 20 mg, By Mouth, Every 4 hours, PRN as needed for pain, 28 day prescription patient may fill for less than quantity prescribed, # 224 tablet, 0 Refills, Acute 05/22/20 17:00:00 EDT, 04/23/20 9:58:00 EDT, Tablet, [facility]/pharmacy #2025, 165, cm... Start Date: 04/23/20 [...] each, 11 Refills,Maintenance, 04/02/20 11:09:00 EDT, Tablet, [facility]/pharmacy #2025, 165, cm, 03/12/20 8:39:00 EDT, Height, [...] Maintenance, 03/02/2017:09:00 EDT, Route to Pharmacy Electronically, [facility]/pharmacy #2024 Tablet, 165, cm, 01/27/20 8:11:00 EDT, Height, 53.6, kg, 10/14/19 10:56:00 EST, Dry... Start Date: 03/02/20 Status: Ordered triamcinolone 0.1% topical cream 1 application, Topically, 3 times a day, PRN psoriasis rash, # 60 Gm, 5 Refills, Acute 01/01/21 10:47:00 EDT, 01/02/20 10:46:00 EDT, Cream, [facility]/pharmacy #2024, 1 application Topically 3 times a day,PRN:psoriasis rash, 165, cm, 11/17/19 10:08:00 EST, H... Start Date: 01/02/20 Stop Date: 01/01/21 Status: Ordered Ventolin HFA 108 mcg/inh inhalation aerosol with adapter 2 puffs, Inhalation, 4 times a day, PRN for wheezing, # 18 Gm, 11 Refills, Maintenance, 01/13/20 11:40:00 EDT, Aerosol, [facility]/pharmacy #2024, 165, cm, 11/17/19 10:08:00 EST, Height, 53.6, kg, 10/14/19 10:56:00 EST, Dry Weight Start Date: 01/13/20 Status: Ordered Yupelri 175 mcg/3 mL inhalation solution = 175 mcg, Inhalation, Daily, j44.9, # 360 mL, 6 Refills, Maintenance, 03/06/20 11:37:00 EDT, [facility], ICD 10 J44.9, PLEASE BILL THROUGH MED B [id number], 165, cm, 01/27/20 8:11:00 EDT, Height, 53.6, [...]
--- OUTSIDE RECORDS SUMMARY | 2024-05-04 13:20 | XMS_ITS | Continuity of Care Document ---
Author Organization [facility] Address [address] [place] [address]- Care Team Providers Care Commissary Manager Name Role Phone Declan Muller MD Primary Care Physician Encounter [facility] [place] Date(s): 08/21/23 - 09/20/23 [facility] [address] [place] [address]- Attending Physician: Kaleb De Leon Admitting Physician: Kaleb De Leon Referring Physician: AdmKaleb colindres Allergies, Adverse Reactions, Alerts Substance Reaction Severity [...] (oldterm) 13 08/19/08 Given 1Result Comment: [facility] [id number] 2Result Comment: [06/22/2018] given at [facility] 5Admin Note: done @ clinic 6Admin Note: given w/out incident/VIS given 7Result Comment: [id number], [id number] 8Result Comment: DONE AT [facility] 9[facility]: [facility] 10Result Comment: [07/21/2014] given w/out incident 11Admin Note: [facility] INFO GIVEN TO PATIENT 12Result Comment: lot #[id number] 13Admin Note: [facility] albuterol 0.083% inhalation solution 3 mL = 2.5 mg, Inhalation, Every 6 hours, PRN for wheezing, # 360 mL, 8 Refills, Maintenance, 07/07/19 14:14:00 EDT, Solution, ICD 10 J44.9, PLEASE BILL THROUGH MED B [id number] Start Date: 07/07/19 Status: Ordered albuterol 90 mcg/inh inhalation aerosol 0 Refills, Maintenance Start Date: 04/30/20 Status: Ordered Ativan 1 mg oral tablet 1 tablet = 1 mg, By Mouth, 3 times a day, PRN for anxiety, # 84 each, 0 Refills, Acute 05/27/24 10:08:00 EDT, 05/27/23 10:08:00 EDT, Tablet, [facility]/pharmacy #2025, 165, cm, 04/17/23 11:00:00 EDT, Height, 54.7, kg, 03/20/23 8:33:00 EDT, Dry Weight Start Date: 05/27/23 Stop Date: 05/27/24 Status: Ordered Brovana 15 mcg/2 mL inhalation solution 1 each, Neb, 2 times a day, not to exceed 2 doses/day do not swallow, # 60 each, 1 Refills, Maintenance, 04/24/20 16:53:00 EDT, Solution, [facility]/pharmacy #2024, ICD Code J44.9, 165, cm, 03/12/20 8:39:00EDT, Height, 70.7, kg, 03/08/20 16:16:00 EDT, Dry... Start Date: 04/24/20 Status: Ordered budesonide 0.25 mg/2 mL inhalation suspension 0.25 mg, 2, mL, Neb, 2 times a day, for COPD J44.9. rinse mouth after use, # 120 mL, Refills 6, Tot. Refills 6, Maintenance, 03/06/20 11:34:00 EDT, Suspension, Route to Pharmacy Electronically, [id number], [facility]/pharmacy #2024,... Start Date: 03/06/20 Status: Ordered calcium-vitamin D 600 mg-400 intl units oral tablet 1 tablet, By Mouth, 2 times a day, # 180 tablet, 1 Refills, Maintenance, 10/07/22 11:54:00 EST, [facility], [facility], TAKE 1 TABLET BY MOUTH TWICE A DAY, 165, cm, 08/26/22 11:06:00 EST, Height, 64.7, kg, 10/03/22 8:14:00 EST, Dry Weight Start Date: 10/07/22 Status: Ordered cyclobenzaprine 10 mg oral tablet 1/2 OR 1 TABLET, By Mouth, 2 times a day, PRN, # 60 tablet, Refills 5, Maintenance, NEEDED FOR MUSCLE PAIN OR SPASM, 06/29/23 10:11:00 EDT, Route to Pharmacy Electronically, [facility], 165, cm, 04/17/23 11:00:00 EDT, Height, 52.7, [...] 11 Refills,Maintenance, 08/19/22 11:00:00 EDT, EC Tablet, [facility]/pharmacy #202, Partial fill upon patient request [...] capsule, 11 Refills, Maintenance, 03/03/23 10:03:00 EDT, [facility]/pharmacy #2024, 165, cm, 01/21/23 10:40:00 EDT, Height, 55.8, kg, 01/23/23 8:24:00 EDT, Dry Weight Start Date: 03/03/23 Stop Date: 02/26/24 Status: Ordered duloxetine 30 mg oral enteric coated capsule 1 capsule = 30 mg, By Mouth, Daily, # 30 capsule, 11 Refills, Maintenance, 09/14/23 16:34:00 EST, Capsule, [facility]/pharmacy #2024, Partial fill upon patient request if the prescription is for a schedule II opioid drug., 165, cm, 09/04/23 8:51:00 EST, [place]. Start Date: 09/14/23 Status: Ordered gabapentin 400 mg oral capsule 1, capsule, By Mouth, 3 times a day, # 90 capsule, Refills 11, Maintenance, 10/07/22 13:28:00 EST, Route to Pharmacy Electronically, [facility], 165, cm, 08/26/22 11:06:00 EST, Height, 64.7, [...] Refills, Maintenance, 10/15/22 9:58:00 EST, [facility], 165, cm, 10/09/22 11:32:00 EST, Height, 64.7, [...] 05/27/23 Stop Date: 05/27/24 Status: Ordered nystatin 522279 u/ml oral suspension 5 mL, By Mouth, 4 times a day, # 480 mL, 1 Refills, [facility], 165, cm, 03/28/22 11:14:00 EDT, Height, 60.4, kg, 03/06/22 10:48:00 EDT, Dry Weight Start Date: 04/17/22 Status: Ordered ondansetron 4 mg oral tablet, disintegrating 1 tablet = 4 mg, By Mouth, Every 6 hours, PRN Nausea & Vomiting, # 20 each, 1 Refills, Acute 12/12/23 16:51:00 EST, 12/12/22 16:50:00 EST, Tablet, [facility], Partial fill upon patient [...] 10 J44.9, PLEASE BILL THROUGH MED B [id number], 165, cm, 06/05/21 10:01:00 EDT, Height, 61.4, [...] Most recent to oldest [Reference Range]: 1 Pulse Rate [55-90 bpm] 88 bpm (10/04/10 9:45 AM) Blood Pressure [90-138/55-84 mm Hg] 138/ 95mm Hg (10/04/10 9:45 AM) Temperature [96.8-100.4 DegF] 98.0 DegF (10/04/10 9:45 AM) Blood pressure sites Arm, left (10/04/10 9:45 AM) Temperature Route Oral (10/04/10 9:45 AM) Social History Social History Type Response Smoking Status Former smoker, quit more than 30 days ago; Other: quit 20 years ago; entered on: 09/24/19 [facility] Consult note * Event Display: Inpatient Consult Note, Non- Authored Date: * Event Display: Inpatient Consult Note, Non- Authored Date: * Event Display: Inpatient Consult Note, Non- Authored Date: Note * Event Display: History and Physical, Non- Authored Date: Patient Care team information Care Team Personnel Name: Joelle Castillo Position: [facility] Onco RN Member Role: Primary Care Nurse Name: Marilee Pitts RN Position: [facility] RN Member Role: Primary Care Nurse Name: Shawnee Schafer RN Position: [facility] SN RN Member Role: Primary Care Nurse Name: Declan Muller MD Position: [facility] Physician - Primary Care Member Role: PCP Address: Address: [address] [place] [address] Adult [facility] [place] [address]- Name: Aylin Byrne RN Position: [facility] RN Member Role: Primary Care Nurse Name: Edilma Metzger RN Position: [facility] RN Member Role: Primary Care Nurse Name: Katherine Bond RN Position: [facility] SN RN Member Role: Primary Care Nurse Name: Kerry Negron RN Position: [facility] RN Member Role: Primary Care Nurse Name: Joslyn Dodge RN Position: [facility] SN RN Member [...] Team Related Persons Name: JANICE TAYLOR Address: [address] [address]
--- OUTSIDE RECORDS SUMMARY | 2024-05-04 13:20 | XMS_ITS | Continuity of Care Document ---
Author Organization [facility] Address [address] 2nd [address] [place] [address]- Care Team Providers Care Trend Investigator Name Role Phone Renzo GRAHAM, Declan Hou Primary Care Physician Encounter [facility] [place] [place] Date(s): 10/05/20 - 11/04/20 [facility] [address] [place] [address]- Attending Physician: Admtr, Ar8 Admitting Physician: Admtr Ar8 Referring Physician: Admtr, Ar8 Allergies, Adverse Reactions, Alerts Substance Reaction Severity [...] Note: given w/out incident/VIS given 7Result Comment: [id number], [id number] [facility] 9Result Comment: [07/21/2014] given w/out incident 10Admin Note: CDC INFO GIVEN TO PATIENT 11Result Comment: lot #[id number] 12Admin Note: [facility] albuterol 0.083% inhalation solution 3 mL = 2.5 mg, Inhalation, Every 6 hours, PRN for wheezing, # 360 mL, 8 Refills, Maintenance, 07/07/19 14:14:00 EDT, Solution, ICD 10 J44.9, PLEASE BILL THROUGH MED B [id number] Start Date: 07/07/19 Status: Ordered alendronate 70 [...] 11:34:00 EDT, Suspension, Route to Pharmacy Electronically, [id number], [facility]/pharmacy #2024,... Start Date: 03/06/20 Status: Ordered calcium-vitamin D 600 mg-400 intl units oral tablet See Instructions, 1 tablet By Mouth twice daily, # 60 tablet, 11 Refills, Maintenance, 07/04/20 15:50:00 EDT, Tablet, [facility]/pharmacy #2024, 1 tablet By Mouth twice [...] PAIN,10/10/20 16:50:00 EST, Route to Pharmacy Electronically, [facility], 165, cm, 05/17/20 16:00:00 EDT, Height, 66.5, kg, 09/21/20 8:46:00 EST, Dry W... Start Date: 10/10/20 Status: Ordered docusate sodium 100 mg oral capsule See Instructions, PRN, 3 capsule By Mouth 2 times a day 30 days, # 180 each, Refills 11, Tot. Refills 11, Maintenance, for constipation, 03/02/20 17:08:00 EDT, Instructions Replace Required Details, Route to Pharmacy Electronically, [facility]/pharmacy #2024... Start Date: 03/02/20 Status: Ordered [...] 10/05/20 10:44:00 EST, Route to Pharmacy Electronically, [facility]/pharmacy #2024, Partial fill upon patient request [...] 11/02/21 17:07:00 EST, 11/02/20 17:07:00 EST, Tablet, [facility] Start Date: 11/02/20 Stop Date: 11/02/21 [...] Refills, Acute, 05/22/20 11:58:00 EDT, [facility], 165, cm, 05/17/20 16:00:00 EDT, Height, 67, [...] 03/02/2017:09:00 EDT, Route to Pharmacy Electronically, [facility]/pharmacy #2024 Tablet, 165, cm, 01/27/20 8:11:00 EDT, Height, 53.6, kg, 10/14/19 10:56:00 EST, Dry... Start Date: 03/02/20 Status: Ordered triamcinolone 0.1% topical cream 1 application, Topically, 3 times a day, PRN psoriasis rash, # 60 Gm, 5 Refills, Acute 01/01/21 10:47:00 EDT, 01/02/20 10:46:00 EDT, Cream, [facility]/pharmacy #2024, 1 application Topically 3 times a day,PRN:psoriasis rash, 165, cm, 11/17/19 10:08:00 EST, H... Start Date: 01/02/20 Stop Date: 01/01/21 Status: Ordered Ventolin HFA 108 mcg/inh inhalation aerosol with adapter 2 puffs, Inhalation, 4 times a day, PRN for wheezing, # 18 Gm, 11 Refills, Maintenance, 01/13/20 11:40:00 EDT, Aerosol, [facility]/pharmacy #2024, 165, cm, 11/17/19 10:08:00 EST, Height, 53.6, kg, 10/14/19 10:56:00 EST, Dry Weight Start Date: 01/13/20 Status: Ordered Yupelri 175 mcg/3 mL inhalation solution = 175 mcg, Inhalation, Daily, j44.9, # 360 mL, 6 Refills, Maintenance, 03/06/20 11:37:00 EDT, [facility]/pharmacy #2024, ICD 10 J44.9, PLEASE BILL THROUGH MED B [id number], 165, cm, 01/27/20 8:11:00 EDT, Height, 53.6, [...]
--- OUTSIDE RECORDS SUMMARY | 2024-05-04 13:20 | XMS_ITS | Continuity of Care Document ---
Author Organization [facility] Address [address] [address]- Care Team Providers Care Producer Assistant Name Role Phone Renzo GRAHAM, Declan Hou Primary Care Physician Encounter [facility] Date(s): 05/10/20 - 06/09/20 [facility] [address] [address]- [place] Attending Physician: Kaleb De Leon Admitting Physician: [...] 12 08/19/08 Given 1Result Comment: DONE AT [facility] 2Result Comment: [06/22/2018] [facility] 5Admin Note: done @ clinic 6Admin Note: given w/out incident/VIS given 7Result Comment: [id number], [id number] 8[facility] 9Result Comment: [07/21/2014] given w/out incident 10Admin Note: CDC INFO GIVEN TO PATIENT 11Result Comment: lot #[id number] 12Admin Note: [facility] albuterol 0.083% inhalation solution 3 mL = 2.5 mg, Inhalation, Every 6 hours, PRN for wheezing, # 360 mL, 8 Refills, Maintenance, 07/07/19 14:14:00 EDT, Solution, ICD 10 J44.9, PLEASE BILL THROUGH MED B [id number] Start Date: 07/07/19 Status: Ordered alendronate 70 [...] 11:34:00 EDT, Suspension, Route to Pharmacy Electronically, [id number], [facility]/pharmacy #2024,... Start Date: 03/06/20 Status: [...] Replace Required Details, Route to Pharmacy Electronically, [facility]/pharmacy #2024... Start Date: 03/02/20 Status: [...] 02/22/20 10:31:00 EDT, Route to Pharmacy Electronically, [facility]/pharmacy #2024, 165, cm, 01/27/20 8:11:00 EDT, Height, 53.6, kg, 10/14/19 10:56:00 EST, Dry... Start Date: 02/22/20 Status: Ordered lactulose 10 gm/15 ml oral syrup 30 mL = 20 Gm, By Mouth, Daily, PRN as needed for constipation, for 30 days, # 1,000 mL, 2 Refills,Acute 08/15/20 16:25:00 EDT, 05/17/20 16:25:00 EDT, Syrup, [facility]/pharmacy #2025, 30 mL By Mouth [...] 17:00:00 EDT, 05/21/20 10:23:00 EDT, Tablet, [facility] Start Date: 05/21/20 Stop Date: 06/18/20 Status: Ordered oxyCODONE 10 mg oral tablet 2 tablet = 20 mg, By Mouth, Every 4 hours, PRN as needed for pain, 28 day prescription patient may fill for less than quantity prescribed, # 224 tablet, 0 Refills, Acute 06/18/20 17:00:00 EDT, 05/21/20 10:23:00 EDT, Tablet, [facility]/pharmacy #2025, 165, c... Start Date: [...] Refills, Acute, 05/22/20 11:58:00 EDT, [facility], 165, cm, 05/17/20 16:00:00 EDT, Height, 67, kg, 05/01/20 10:40:00 EDT, Dry Weight Start Date: 05/22/20 Status: Ordered Readi-Cat 2 oral suspension See Instructions, As per recommendations of radiology 1 the evening before when the morning of procedure, # 2 pack/packet, 0 Refills, Maintenance, 05/17/20 16:25:00 EDT, [facility]/pharmacy #2024, As per recommendations of [...] Maintenance, 03/02/2017:09:00 EDT, Route to Pharmacy Electronically, [facility]/pharmacy #2024 Tablet, 165, cm, 01/27/20 8:11:00 EDT, Height, 53.6, kg, 10/14/19 10:56:00 EST, Dry... Start Date: 03/02/20 Status: Ordered triamcinolone 0.1% topical cream 1 application, Topically, 3 times a day, PRN psoriasis rash, # 60 Gm, 5 Refills, Acute 01/01/21 10:47:00 EDT, 01/02/20 10:46:00 EDT, Cream, [facility]/pharmacy #2024, 1 application Topically 3 times a day,PRN:psoriasis rash, 165, cm, 11/17/19 10:08:00 EST, H... Start Date: 01/02/20 Stop Date: 01/01/21 Status: Ordered Ventolin HFA 108 mcg/inh inhalation aerosol with adapter 2 puffs, Inhalation, 4 times a day, PRN for wheezing, # 18 Gm, 11 Refills, Maintenance, 01/13/20 11:40:00 EDT, Aerosol, [facility]/pharmacy #2024, 165, cm, 11/17/19 10:08:00 EST, Height, 53.6, kg, 10/14/19 10:56:00 EST, Dry Weight Start Date: 01/13/20 Status: Ordered Yupelri 175 mcg/3 mL inhalation solution = 175 mcg, Inhalation, Daily, j44.9, # 360 mL, 6 Refills, Maintenance, 03/06/20 11:37:00 EDT, [facility], ICD 10 J44.9, PLEASE BILL THROUGH MED B [id number], 165, cm, 01/27/20 8:11:00 EDT, Height, 53.6, [...]
--- OUTSIDE RECORDS SUMMARY | 2024-05-04 13:20 | XMS_ITS | Continuity of Care Document ---
Author Organization [facility] Address [address] [place] [address]- Care Team Providers Care Senior Asset Manager Name Role Phone Renzo GRAHAM, Declan Hou Primary Care Physician Encounter [facility] Date(s): 07/11/20 - 08/10/20 [facility] [address] [place] [address]- [facility] Allergies, Adverse Reactions, Alerts Substance Reaction [...] Note: given w/out incident/VIS given 7Result Comment: [id number], [id number] [facility] 9Result Comment: [07/21/2014] given [...] 10 J44.9, PLEASE BILL THROUGH MED B [id number] Start Date: 07/07/19 Status: Ordered alendronate 70 mg oral tablet 1 tablet = 70 mg, By Mouth, Every week, # 4 tablet, 0 Refills, Maintenance, 04/02/20 11:08:00 EDT, Tablet Start Date: 04/02/20 Status: Ordered Ativan 1 mg oral tablet 1 tablet = 1 mg, By Mouth, 3 times a day, PRN for anxiety, # 84 each, 0 Refills, Acute 08/13/20 17:00:00 EDT, 07/16/20 8:37:00 EDT, Tablet, [facility], 165, cm, 05/17/20 16:00:00 EDT, Height,67, kg, 05/01/20 10:40:00 EDT, Dry Weight Start Date: 07/16/20 Stop Date: 08/13/20 Status: Ordered Brovana 15 mcg/2 mL inhalation [...] 11:34:00 EDT, Suspension, Route to Pharmacy Electronically, [id number], [facility]/pharmacy #2024,... Start Date: 03/06/20 Status: Ordered calcium-vitamin D 600 mg-400 intl units oral tablet See Instructions, 1 tablet By Mouth twice daily, # 60 tablet, 11 Refills, Maintenance, 07/04/20 15:50:00 EDT, Tablet, [facility]/pharmacy #2024, 1 tablet By Mouth twice daily, 165, cm, 05/17/20 16:00:00 EDT, Height, 67, kg, 05/01/20 10:40:00 EDT, Dry Weight Start Date: 07/04/20 Status: Ordered docusate sodium 100 mg oral capsule See Instructions, PRN, 3 capsule By Mouth 2 times a day 30 days, # 180 each, Refills 11, Tot. Refills 11, Maintenance, for constipation, 03/02/20 17:08:00 EDT, Instructions Replace Required Details, Route to Pharmacy Electronically, [facility]/pharmacy #2024... Start Date: 03/02/20 Status: Ordered [...] 10:31:00 EDT, Route to Pharmacy Electronically, [facility]/pharmacy #2024, 165, cm, 01/27/20 8:11:00 EDT, Height, 53.6, kg, 10/14/19 10:56:00 EST, Dry... Start Date: 02/22/20 Status: Ordered lactulose 10 gm/15 ml oral syrup 30 mL = 20 Gm, By Mouth, Daily, PRN as needed for constipation, for 30 days, # 1,000 mL, 2 Refills,Acute 08/15/20 16:25:00 EDT, 05/17/20 16:25:00 EDT, Syrup, [facility]/pharmacy #2025, 30 mL By Mouth Daily,x30 days,PRN:as needed for constipation, 165, cm, 0... Start Date: 05/17/20 Stop Date: 08/15/20 Status: Ordered methadone 10 mg oral tablet See Instructions, PRN for pain, 2 tablets By Mouth in the morning, 1 tablet in the afternoon, and 3tablets by mouth in the evening 28 day schedule, # 168 each, 0 Refills, Acute 08/13/20 17:00:00 EDT, 07/16/20 8:37:00 EDT, Tablet, [facility]/pharmacy #202... Start Date: 07/16/20 Stop Date: 08/13/20 Status: Ordered naproxen 500 mg oral tablet 1 tablet = 500 mg, By Mouth, 2 times a day, PRN joint or muscle pain, # 60 tablet, 11 Refills, Acute 06/11/21 11:08:00 EDT, 06/11/20 11:08:00 EDT, Tablet, [facility]/pharmacy #2025, 165, cm, 05/17/20 16:00:00 EDT, Height, 67, kg, 05/01/20 10:40:00 EDT, Dry W... Start Date: 06/11/20 Stop Date: 06/11/21 Status: Ordered oxyCODONE 10 mg oral tablet 2 tablet = 20 mg, By Mouth, Every 4 hours, PRN as needed for pain, 28 day prescription patient may fill for less than quantity prescribed, # 224 tablet, 0 Refills, Acute 08/13/20 17:00:00 EDT, 07/16/20 8:37:00 EDT, Tablet, [facility], 165, cm... Start Date: 07/16/20 Stop Date: 08/13/20 Status: Ordered pantoprazole 40 mg oral delayed [...] tablet, 11 Refills, Acute, 05/22/20 11:58:00 EDT, [facility], 165, cm, 05/17/20 16:00:00 EDT, Height, 67, kg, 05/01/20 10:40:00 EDT, Dry Weight Start Date: 05/22/20 Status: Ordered Readi-Cat 2 oral suspension See Instructions, As per recommendations of radiology 1 the evening before when the morning of procedure, # 2 pack/packet, 0 Refills, Maintenance, 05/17/20 16:25:00 EDT, [facility]/pharmacy #2024, As per recommendations of radiology 1 the evening before when... Start Date: 05/17/20 Status: Ordered roflumilast 250 mcg oral tablet 1 tablet = 250 mcg, By Mouth, Daily, # 90 tablet, 3 Refills, Maintenance, 07/04/20 15:51:00 EDT, [facility]/pharmacy #2024, 165, cm, 05/17/20 16:00:00 EDT, Height, 67, kg, 05/01/20 10:40:00 EDT, Dry Weight Start Date: 07/04/20 Status: Ordered Senna 8.6 mg oral tablet 8.6 mg, 1, tablet, By Mouth, Daily, # 30 tablet, Refills 11, Tot. Refills 11, Maintenance, 03/02/2017:09:00 EDT, Route to Pharmacy Electronically, [facility]/pharmacy #2024 Tablet, 165, cm, 01/27/20 8:11:00 EDT, Height, 53.6, kg, 10/14/19 10:56:00 EST, Dry... Start Date: 03/02/20 Status: Ordered triamcinolone 0.1% topical cream 1 application, Topically, 3 times a day, PRN psoriasis rash, # 60 Gm, 5 Refills, Acute 01/01/21 10:47:00 EDT, 01/02/20 10:46:00 EDT, Cream, [facility]/pharmacy #[id number], 1 application Topically 3 times a day,PRN:psoriasis [...] 10 J44.9, PLEASE BILL THROUGH MED B [id number], 165, cm, 01/27/20 8:11:00 EDT, Height, 53.6, kg, 10/14/19 10:56:00 EST, Dry Weight Start Date: 03/06/20 Status: Ordered Zithromax 250 mg oral tablet See Instructions, 1 tablet By Mouth Daily on thursday, thursday, and thursday, # 12 tablet, 11 Refills, Maintenance, 07/11/20 12:50:00 EDT, Tablet, [facility]pharmacy #[id number], 165, cm, 05/17/20 [...]
--- OUTSIDE RECORDS SUMMARY | 2024-05-04 13:20 | XMS_ITS | Continuity of Care Document ---
Author Organization [facility] Address [address] [place] [address]- Care Team Providers Care Battery Assembler Dry Cell Name Role Phone Renzo GRAHAM, Declan Hou Primary Care Physician [facility]): [facility]21 - 07/05/21 [facility] [address] [place], [place] [address] Attending Physician: Kaleb De Leon [...] Note: given w/out incident/VIS given 7Result Comment: [id number], [id number] [facility] 9Result Comment: [07/21/2014] given w/out incident 10Admin Note: [facility] INFO GIVEN TO PATIENT 11Result Comment: lot #[id number] 12Admin Note: [facility] albuterol 0.083% inhalation solution 3 mL = 2.5 mg, Inhalation, Every 6 hours, PRN for wheezing, # 360 mL, 8 Refills, Maintenance, 07/07/19 14:14:00 EDT, Solution, ICD 10 J44.9, PLEASE BILL THROUGH MED B [id number] Start Date: 07/07/19 Status: Ordered alendronate 70 mg oral tablet 1 tablet = 70 mg, By Mouth, Every week, # 4 tablet, 0 Refills, Maintenance, 04/02/20 11:08:00 EDT, Tablet Start Date: 04/02/20 Status: Ordered Ativan 1 mg oral tablet 1 tablet = 1 mg, By Mouth, 3 times a day, PRN for anxiety, # 84 each, 0 Refills, Acute 07/15/21 17:00:00 EDT, 06/14/21 8:22:00 EDT, Tablet, [facility], 165, cm, 06/05/21 10:01:00 EDT, Height,61.4, kg, 03/15/21 10:38:00 EDT, Dry Weight Start Date: 06/14/21 Stop Date: 07/15/21 Status: Ordered Brovana 15 mcg/2 mL inhalation [...] 11:34:00 EDT, Suspension, Route to Pharmacy Electronically, [id number], [facility]/pharmacy #2024,... Start Date: 03/06/20 Status: Ordered calcium-vitamin D 600 mg-400 intl units oral tablet See Instructions, 1 tablet By Mouth twice daily, # 60 tablet, 11 Refills, Maintenance, 07/04/20 15:50:00 EDT, Tablet, [facility]/pharmacy #2024, 1 tablet By Mouth twice [...] 11/21/20 12:23:00 EST, Route to Pharmacy Electronically, [facility]/pharmacy #2024, 165, cm, 05/17/20 16:00:00 EDT, Height, 66.5,... Start Date: 11/21/20 Stop Date: 11/21/21 Status: Ordered docusate sodium 100 mg oral capsule 2 capsule, By Mouth, 2 times a day, PRN NEEDED FOR CONSTIPATION FOR, # 120 capsule, 11 Refills, Maintenance, 11/21/20 16:36:00 EST, [facility] STORE [id number], 165, cm, 05/17/20 16:00:00 EDT, Height, 66.5, [...] 01/30/21 11:23:00 EDT, Route to Pharmacy Electronically, [facility] STORE [id number], 165, cm, 12/20/20 10:40:00 EST, Height, 66.7, [...] schedule, # 168 each, 0 Refills, Acute 07/15/21 17:00:00 EDT, 06/14/21 8:22:00 EDT, Tablet, [facility]/pharmacy #202... Start Date: 06/14/21 Stop Date: 07/15/21 Status: Ordered nystatin 532652 u/ml oral suspension 5 mL = 500,000 units, By Mouth, 4 times a day, for 7 days, swish and swallow, # 140 mL, 1 Refills, Acute 07/15/21 12:40:00 EDT, 07/01/21 12:40:00 EDT, Suspension, [facility]/pharmacy #2025, Partial fill upon patient request if the prescription is for a sched... Start Date: 07/01/21 Stop Date: 07/15/21 Status: Ordered oxyCODONE 10 mg oral tablet 2 tablet = 20 mg, By Mouth, Every 4 hours, PRN as needed for pain, 28 day prescription patient may fill for less than quantity prescribed, # 224 tablet, 0 Refills, Acute 07/15/21 17:00:00 EDT, 06/14/21 8:22:00 EDT, Tablet, [facility], [facility]ill... Start Date: 06/14/21 Stop Date: 07/15/21 Status: Ordered pantoprazole 40 mg oral delayed [...] 10 J44.9, PLEASE BILL THROUGH MED B [id number], 165, cm, 12/20/20 10:40:00 EST, Height, 66.7, kg, 04/02/... Start Date: 01/22/21 Status: Ordered ZyrTEC 10 [...]
--- OUTSIDE RECORDS SUMMARY | 2024-05-04 13:20 | XMS_ITS | Continuity of Care Document ---
Author Organization [facility] Address [address] [place] [address]- Care Team Providers Care Clay Modeler Name Role Phone Declan Muller MD Primary Care Physician Encounter 05/06/21 - 05/13/21 [facility] [address], [address] [place] [address]- Attending Physician: Lacho Jarvis NP Admitting Physician: [...] 12 08/19/08 Given 1Result Comment: DONE AT [facility] 2Result Comment: [06/22/2018] given at [facility] 5Admin Note: done @ clinic 6Admin Note: given w/out incident/VIS given 7Result Comment: [id number], [id number] 8[facility] 9Result Comment: [07/21/2014] given w/out incident 10Admin Note: CDC INFO GIVEN TO PATIENT 11Result Comment: lot #[id number] 12Admin Note: [facility] albuterol 0.083% inhalation solution 3 mL = 2.5 mg, Inhalation, Every 6 hours, PRN for wheezing, # 360 mL, 8 Refills, Maintenance, 07/07/19 14:14:00 EDT, Solution, ICD 10 J44.9, PLEASE BILL THROUGH MED B [id number] Start Date: 07/07/19 Status: Ordered alendronate 70 [...] 05/20/21 17:00:00 EDT, 04/19/21 10:13:00 EDT, Tablet, [facility], 165, cm, 03/15/21 10:38:00 EDT, Height, [...] 11:34:00 EDT, Suspension, Route to Pharmacy Electronically, [id number], [facility]/pharmacy #2024,... Start [...] EST, [facility] STORE 70844, 165, cm, 05/17/20 16:00:00 EDT, Height, 66.5, [...] 01/30/21 11:23:00 EDT, Route to Pharmacy Electronically, [facility] STORE 23320, 165, cm, 12/20/20 10:40:00 EST, Height, 66.7, [...] 11:08:00 EDT, 06/11/20 11:08:00 EDT, Tablet, [facility]/pharmacy #2025, 165, cm, 05/17/20 16:00:00 EDT, [...] 05/20/21 17:00:00 EDT, 04/19/21 10:13:00 EDT, Tablet, [facility]/pharmacy #2025, refill... Start Date: 04/19/21 Stop [...] mL, 3 Refills, Maintenance, 01/22/21 8:54:00 EDT, [facility]/pharmacy #202, ICD 10 J44.9, PLEASE BILL THROUGH MED B [id number], 165, cm, 12/20/20 10:40:00 EST, Height, 66.7, [...]
--- OUTSIDE RECORDS SUMMARY | 2024-05-04 13:20 | XMS_ITS | Continuity of Care Document ---
Author Organization [facility] Address [address] [place] [address]- Care Team Providers Care Certified Court/Medical Interpreter Name Role Phone Declan Muller MD Primary Care Physician [facility] Date[facility]s): 05/28/21 - 06/27/21 [facility] [address] [place] [address]- [place] Allergies, Adverse Reactions, Alerts Substance Reaction [...] Note: given w/out incident/VIS given 7Result Comment: [id number], [id number] [facility] 9Result Comment: [07/21/2014] given w/out incident 10Admin Note: CDC INFO GIVEN TO PATIENT 11Result Comment: lot #[id number] 12Admin Note: [facility] albuterol 0.083% inhalation solution 3 mL = 2.5 mg, Inhalation, Every 6 hours, PRN for wheezing, # 360 mL, 8 Refills, Maintenance, 07/07/19 14:14:00 EDT, Solution, ICD 10 J44.9, PLEASE BILL THROUGH MED B [id number] Start Date: 07/07/19 Status: Ordered alendronate 70 [...] 07/15/21 17:00:00 EDT, 06/14/21 8:22:00 EDT, Tablet, [facility]/pharmacy #2024, 165, cm, 06/05/21 10:01:00 EDT, Height,61.4, [...] 11:34:00 EDT, Suspension, Route to Pharmacy Electronically, [id number], [facility]/pharmacy #202,... Start Date: 03/06/20 Status: Ordered calcium-vitamin D 600 mg-400 intl units oral tablet See Instructions, 1 tablet By Mouth twice daily, # 60 tablet, 11 Refills, Maintenance, 07/04/20 15:50:00 EDT, Tablet, [facility]/pharmacy #2024, 1 tablet By [...] 11/21/20 12:23:00 EST, Route to Pharmacy Electronically, [facility]/pharmacy #2024, 165, cm, 05/17/20 16:00:00 EDT, Height, 66.5,... Start Date: 11/21/20 Stop Date: 11/21/21 Status: Ordered docusate sodium 100 mg oral capsule 2 capsule, By Mouth, 2 times a day, PRN NEEDED FOR CONSTIPATION FOR, # 120 capsule, 11 Refills, Maintenance, 11/21/20 16:36:00 EST, [facility] STORE 28464, 165, cm, 05/17/20 16:00:00 EDT, Height, 66.5, [...] 01/30/21 11:23:00 EDT, Route to Pharmacy Electronically, [facility] STORE 65336, 165, cm, 12/20/20 10:40:00 EST, Height, 66.7, [...] 07/15/21 17:00:00 EDT, 06/14/21 8:22:00 EDT, Tablet, [facility]/pharmacy #202... Start Date: 06/14/21 Stop Date: 07/15/21 Status: Ordered oxyCODONE 10 mg oral tablet 2 tablet = 20 mg, By Mouth, Every 4 hours, PRN as needed for pain, 28 day prescription patient may fill for less than quantity prescribed, # 224 tablet, 0 Refills, Acute 07/15/21 17:00:00 EDT, 06/14/21 8:22:00 EDT, Tablet, [facility]/pharmacy #2025, refill... Start Date: 06/14/21 Stop Date: 07/15/21 [...] 10 J44.9, PLEASE BILL THROUGH MED B [id number], 165, cm, 12/20/20 10:40:00 EST, Height, 66.7, [...]
--- OUTSIDE RECORDS SUMMARY | 2024-05-04 13:20 | XMS_ITS | Continuity of Care Document ---
Author Organization [facility] Address [address] [place] [address]- Care Team Providers Care Sales Solutions Representative Name Role Phone Renzo GRAHAM, Declan Hou Primary Care Physician [phone] [facility]counter [facility] Date[facility]): 04/24/20 - 05/24/20 [facility] [address] [place] [address]- [facility] Allergies, Adverse Reactions, Alerts Substance Reaction [...] Note: given w/out incident/VIS given 7Result Comment: [id number], [id number] 8[facility] 9Result Comment: [07/21/2014] given w/out incident 10Admin Note: [facility] INFO GIVEN TO PATIENT 11Result Comment: lot #[id number] 12Admin Note: [facility] albuterol 0.083% inhalation solution 3 mL = 2.5 mg, Inhalation, Every 6 hours, PRN for wheezing, # 360 mL, 8 Refills, Maintenance, 07/07/19 14:14:00 EDT, Solution, ICD 10 J44.9, PLEASE BILL THROUGH MED B [id number] Start Date: 07/07/19 Status: Ordered alendronate 70 [...] 11:34:00 EDT, Suspension, Route to Pharmacy Electronically, [id number], [facility]/pharmacy #2024,... Start Date: 03/06/20 [...] Replace Required Details, Route to Pharmacy Electronically, [facility]/pharmacy #2024... Start Date: 03/02/20 Status: Ordered duloxetine 20 mg oral enteric coated capsule 1 capsule = 20 mg, By Mouth, Daily, 0 Refills, Maintenance, 04/02/20 9:18:00 EDT Start Date: 04/02/20 Status: Ordered gabapentin 400 mg oral capsule 400 mg, 1, capsule, By Mouth, 2 times a day, # 60 each, Refills 11, Tot. Refills 11, Maintenance, 02/22/20 10:31:00 EDT, Route to Pharmacy Electronically, [facility]/pharmacy #2024, 165, cm, 01/27/20 8:11:00 EDT, Height, 53.6, kg, 10/14/19 10:56:00 EST, Dry... Start Date: 02/22/20 Status: Ordered lactulose 10 gm/15 ml oral syrup 30 mL = 20 Gm, By Mouth, Daily, PRN as needed for constipation, for 30 days, # 1,000 mL, 2 Refills,Acute 08/15/20 16:25:00 EDT, 05/17/20 16:25:00 EDT, Syrup, [facility]/pharmacy #2024, 30 mL By Mouth Daily,x30 days,PRN:as [...] 06/18/20 17:00:00 EDT, 05/21/20 10:23:00 EDT, Tablet, [facility]/pharmacy #20... Start Date: 05/21/20 Stop Date: 06/18/20 Status: Ordered oxyCODONE 10 mg oral tablet 2 tablet = 20 mg, By Mouth, Every 4 hours, PRN as needed for pain, 28 day prescription patient may fill for less than quantity prescribed, # 224 tablet, 0 Refills, Acute 06/18/20 17:00:00 EDT, 05/21/20 10:23:00 EDT, Tablet, [facility]/pharmacy #5, 165, c... Start Date: 05/21/20 Stop [...] Refills, Acute, 05/22/20 11:58:00 EDT, [facility], 165, cm, 05/17/20 16:00:00 EDT, Height, 67, kg, 05/01/20 10:40:00 EDT, Dry Weight Start Date: 05/22/20 Status: Ordered Readi-Cat 2 oral suspension See Instructions, As per recommendations of radiology 1 the evening before when the morning of procedure, # 2 pack/packet, 0 Refills, Maintenance, 05/17/20 16:25:00 EDT, [facility]/pharmacy #202, As per recommendations of radiology 1 [...] 01/01/21 10:47:00 EDT, 01/02/20 10:46:00 EDT, Cream, [facility]/pharmacy #2024, 1 application Topically 3 times a day,PRN:psoriasis rash, 165, cm, 11/17/19 10:08:00 EST, H... Start Date: 01/02/20 Stop Date: 01/01/21 Status: Ordered Ventolin HFA 108 mcg/inh inhalation aerosol with adapter 2 puffs, Inhalation, 4 times a day, PRN for wheezing, # 18 Gm, 11 Refills, Maintenance, 01/13/20 11:40:00 EDT, Aerosol, [facility]/pharmacy #2024, 165, cm, 11/17/19 10:08:00 EST, Height, 53.6, kg, 10/14/19 10:56:00 EST, Dry Weight Start Date: 01/13/20 Status: Ordered Yupelri 175 mcg/3 mL inhalation solution = 175 mcg, Inhalation, Daily, j44.9, # 360 mL, 6 Refills, Maintenance, 03/06/20 11:37:00 EDT, [facility]/pharmacy #2024, ICD 10 J44.9, PLEASE BILL THROUGH MED B [id number], 165, cm, 01/27/20 8:11:00 EDT, Height, 53.6, [...]
--- OUTSIDE RECORDS SUMMARY | 2024-05-04 13:20 | XMS_ITS | Continuity of Care Document ---
Author Organization [facility] Address [address] [place] [address]- Care Team Providers Care Car Rental Sales Assistant Name Role Phone Renzo GRAHAM, Declan Hou Primary Care Physician [phone] [facility]counter [facility] Date[facility]s): 06/06/20 - 07/06/20 [facility] [address] [place] [address]- [facility] Allergies, Adverse Reactions, Alerts Substance Reaction [...] Note: given w/out incident/VIS given 7Result Comment: [id number], [id number] 8[facility] 9Result Comment: [07/21/2014] given w/out incident 10Admin Note: [facility] INFO GIVEN TO PATIENT 11Result Comment: lot #[id number] 12Admin Note: [facility] albuterol 0.083% inhalation solution 3 mL = 2.5 mg, Inhalation, Every 6 hours, PRN for wheezing, # 360 mL, 8 Refills, Maintenance, 07/07/19 14:14:00 EDT, Solution, ICD 10 J44.9, PLEASE BILL THROUGH MED B [id number] Start Date: 07/07/19 Status: Ordered alendronate 70 mg oral tablet 1 tablet = 70 mg, By Mouth, Every week, # 4 tablet, 0 Refills, Maintenance, 04/02/20 11:08:00 EDT, Tablet Start Date: 04/02/20 Status: Ordered Ativan 1 mg oral tablet 1 tablet = 1 mg, By Mouth, 3 times a day, PRN for anxiety, # 84 each, 0 Refills, Acute 07/16/20 17:00:00 EDT, 06/18/20 8:51:00 EDT, Tablet, [facility], 165, cm, 05/17/20 16:00:00 EDT, Height,67, kg, 05/01/20 10:40:00 EDT, Dry Weight Start Date: 06/18/20 Stop Date: 07/16/20 Status: Ordered Brovana 15 mcg/2 mL inhalation [...] 11:34:00 EDT, Suspension, Route to Pharmacy Electronically, [id number], [facility]/pharmacy #2024,... Start Date: 03/06/20 Status: Ordered calcium-vitamin D 600 mg-400 intl units oral tablet See Instructions, 1 tablet By Mouth twice daily, # 60 tablet, 11 Refills, Maintenance, 07/04/20 15:50:00 EDT, Tablet, [facility]/pharmacy #2024, 1 tablet By [...] Replace Required Details, Route to Pharmacy Electronically, [facility]/pharmacy #2024... Start Date: 03/02/20 Status: Ordered doxycycline hyclate 100 mg oral capsule 1 capsule = 100 mg, By Mouth, 2 times a day, for 10 days, # 20 capsule, 0 Refills, Acute 07/14/20 12:49:00 EDT, 07/04/20 12:49:00 EDT, Capsule, [facility]/pharmacy #2024, 165, cm, 05/17/20 16:00:00 EDT, Height, 67, kg, 05/01/20 10:40:00 EDT, Dry Weight Start Date: 07/04/20 Stop Date: 07/14/20 Status: Ordered duloxetine 20 mg oral enteric coated capsule 1 capsule = 20 mg, By Mouth, Daily, 0 Refills, Maintenance, 04/02/20 9:18:00 EDT Start Date: 04/02/20 Status: Ordered gabapentin 400 mg oral capsule 400 mg, 1, capsule, By Mouth, 2 times a day, # 60 each, Refills 11, Tot. Refills 11, Maintenance, 02/22/20 10:31:00 EDT, Route to Pharmacy Electronically, [facility]/pharmacy #2024, 165, cm, 01/27/20 8:11:00 EDT, Height, 53.6, kg, 10/14/19 10:56:00 EST, Dry... Start Date: 02/22/20 Status: Ordered lactulose 10 gm/15 ml oral syrup 30 mL = 20 Gm, By Mouth, Daily, PRN as needed for constipation, for 30 days, # 1,000 mL, 2 Refills,Acute 08/15/20 16:25:00 EDT, 05/17/20 16:25:00 EDT, Syrup, [facility]/pharmacy #2024, 30 mL By Mouth Daily,x30 days,PRN:as needed for constipation, 165, cm, 0... Start Date: 05/17/20 Stop Date: 08/15/20 Status: Ordered methadone 10 mg oral tablet See Instructions, PRN for pain, 2 tablets By Mouth in the morning, 1 tablet in the afternoon, and 3tablets by mouth in the evening 28 day schedule, # 168 each, 0 Refills, Acute 07/16/20 17:00:00 EDT, 06/18/20 8:51:00 EDT, Tablet, [facility]/pharmacy #202... Start Date: 06/18/20 Stop Date: 07/16/20 Status: Ordered naproxen 500 mg oral tablet 1 tablet = 500 mg, By Mouth, 2 times a day, PRN joint or muscle pain, # 60 tablet, 11 Refills, Acute 06/11/21 11:08:00 EDT, 06/11/20 11:08:00 EDT, Tablet, [facility]/pharmacy #2024, 165, cm, 05/17/20 16:00:00 EDT, Height, 67, kg, 05/01/20 10:40:00 EDT, Dry W... Start Date: 06/11/20 Stop Date: 06/11/21 Status: Ordered oxyCODONE 10 mg oral tablet 2 tablet = 20 mg, By Mouth, Every 4 hours, PRN as needed for pain, 28 day prescription patient may fill for less than quantity prescribed, # 224 tablet, 0 Refills, Acute 07/16/20 17:00:00 EDT, 06/18/20 8:51:00 EDT, Tablet, [facility]/pharmacy #2024, 165, cm... Start Date: 06/18/20 Stop Date: 07/16/20 Status: Ordered pantoprazole 40 mg oral delayed [...] Refills, Acute, 05/22/20 11:58:00 EDT, [facility], 165, cm, 05/17/20 16:00:00 EDT, Height, 67, kg, 05/01/20 10:40:00 EDT, Dry Weight Start Date: 05/22/20 Status: Ordered Readi-Cat 2 oral suspension See Instructions, As per recommendations of radiology 1 the evening before when the morning of procedure, # 2 pack/packet, 0 Refills, Maintenance, 05/17/20 16:25:00 EDT, [facility]/pharmacy #2024, As per recommendations of radiology 1 the evening before when... Start Date: 05/17/20 Status: Ordered roflumilast 250 mcg oral tablet 1 tablet = 250 mcg, By Mouth, Daily, # 90 tablet, 3 Refills, Maintenance, 07/04/20 15:51:00 EDT, [facility], 165, cm, 05/17/20 16:00:00 EDT, Height, 67, kg, 05/01/20 10:40:00 EDT, Dry Weight Start Date: 07/04/20 Status: Ordered Senna 8.6 mg oral tablet 8.6 mg, 1, tablet, By Mouth, Daily, # 30 tablet, Refills 11, Tot. Refills 11, Maintenance, 03/02/2017:09:00 EDT, Route to Pharmacy Electronically, [facility]/pharmacy #2024 Tablet, 165, cm, 01/27/20 8:11:00 EDT, Height, 53.6, kg, 10/14/19 10:56:00 EST, Dry... Start Date: 03/02/20 Status: Ordered triamcinolone 0.1% topical cream 1 application, Topically, 3 times a day, PRN psoriasis rash, # 60 Gm, 5 Refills, Acute 01/01/21 10:47:00 EDT, 01/02/20 10:46:00 EDT, Cream, [facility]/pharmacy #202, 1 application Topically 3 times a day,PRN:psoriasis rash, 165, cm, 11/17/19 10:08:00 EST, H... Start Date: 01/02/20 Stop Date: 01/01/21 Status: Ordered Ventolin HFA 108 mcg/inh inhalation aerosol with adapter 2 puffs, Inhalation, 4 times a day, PRN for wheezing, # 18 Gm, 11 Refills, Maintenance, 01/13/20 11:40:00 EDT, Aerosol, [facility]/pharmacy #2024, 165, cm, 11/17/19 10:08:00 EST, Height, 53.6, kg, 10/14/19 10:56:00 EST, Dry Weight Start Date: 01/13/20 Status: Ordered Yupelri 175 mcg/3 mL inhalation solution = 175 mcg, Inhalation, Daily, j44.9, # 360 mL, 6 Refills, Maintenance, 03/06/20 11:37:00 EDT, [facility]/pharmacy #2024, ICD 10 J44.9, PLEASE BILL THROUGH MED B [id number], 165, cm, 01/27/20 8:11:00 EDT, Height, 53.6, [...]
--- OUTSIDE RECORDS SUMMARY | 2024-05-04 13:20 | XMS_ITS | Continuity of Care Document ---
Author Organization [facility] Address [address] [place] [address]- Care Team Providers Care Full Time Staff Interpreter Name Role Phone Declan Muller MD Primary Care Physician Encounter [facility] [place] Date(s): 01/21/23 - 01/28/23 [facility] [address] [place], [place] [address] Encounter Diagnosis Chronic obstructive lung disease(Discharge Diagnosis) - 01/21/23 CHF with cardiomyopathy(Discharge Diagnosis) - 01/21/23 Lumbar radiculopathy(Discharge Diagnosis) - 01/21/23 Chronic prescription opiate use(Discharge Diagnosis) - 01/21/23 Immunodeficiency disorder, hypogammaglobulinemia(Discharge Diagnosis) - 01/21/23 Complex sleep apnea syndrome(Discharge Diagnosis) - 01/21/23 Hypertension(Discharge Diagnosis) - 01/21/23 Hyperglycemia(Discharge Diagnosis) - 01/21/23 Fatty liver(Discharge Diagnosis) - 01/21/23 Anxiety disorder(Discharge Diagnosis) - 01/21/23 Attending Physician: Declan Muller MD Allergies, Adverse [...] 08/19/08 Given 1Result Comment: [facility] [id number] 2Result Comment: [06/22/2018] given at [facility] 3Location History: [facility] 4Location History: [facility] 5Admin Note: done @ clinic 6Admin Note: given w/out incident/VIS given 7Result Comment: [id number], [id number] 8Result Comment: DONE AT [facility] 9Location History: [facility] 10Result Comment: [07/21/2014] given w/out incident 11Admin Note: [facility] INFO GIVEN TO PATIENT 12Result Comment: lot #[id number] 13Admin Note: [facility] albuterol 0.083% inhalation solution 3 mL = 2.5 mg, Inhalation, Every 6 hours, PRN for wheezing, # 360 mL, 8 Refills, Maintenance, 07/07/19 14:14:00 EDT, Solution, ICD 10 J44.9, PLEASE BILL THROUGH MED B [id number] Start Date: 07/07/19 Status: Ordered albuterol 90 mcg/inh inhalation aerosol 0 Refills, Maintenance Start Date: 04/30/20 Status: Ordered Ativan 1 mg oral tablet 1 tablet = 1 mg, By Mouth, 3 times a day, PRN for anxiety, # 84 each, 0 Refills, Acute 01/20/24 13:02:00 EDT, 01/19/23 13:02:00 EDT, Tablet, [facility]/pharmacy #2025, 165, cm, 12/16/22 12:53:00 EST, Height, 64.7, kg, 10/03/22 8:14:00 EST, Dry Weight Start Date: 01/19/23 Stop Date: 01/20/24 Status: Ordered Brovana 15 mcg/2 mL inhalation solution 1 each, Neb, 2 times a day, not to exceed 2 doses/day do not swallow, # 60 each, 1 Refills, Maintenance, 04/24/20 16:53:00 EDT, Solution, [facility]/pharmacy #2024, ICD Code J44.9, 165, cm, 03/12/20 8:39:00EDT, Height, 70.7, kg, 03/08/20 16:16:00 EDT, Dry... Start Date: 04/24/20 Status: Ordered budesonide 0.25 mg/2 mL inhalation suspension 0.25 mg, 2, mL, Neb, 2 times a day, for COPD J44.9. rinse mouth after use, # 120 mL, Refills 6, Tot. Refills 6, Maintenance, 03/06/20 11:34:00 EDT, Suspension, Route to Pharmacy Electronically, [id number], [facility]/pharmacy #2024,... Start Date: 03/06/20 Status: Ordered calcium-vitamin D 600 mg-400 intl units oral tablet 1 tablet, By Mouth, 2 times a day, # 180 tablet, 1 Refills, Maintenance, 10/07/22 11:54:00 EST, [facility], 90, TAKE 1 TABLET BY MOUTH TWICE [...] 11 Refills,Maintenance, 08/19/22 11:00:00 EDT, EC Tablet, [facility]/pharmacy #2025, Partial fill upon patient request if [...] capsule, 5 Refills, Maintenance, 07/30/22 11:39:00 EDT, [facility]/pharmacy #0447, 165, cm, 04/17/22 13:32:00 EDT, Height, 60.6,kg, 04/18/22 8:40:00 EDT, Dry Weight Start Date: 07/30/22 Stop Date: 01/26/23 Status: Ordered duloxetine 30 mg oral enteric coated capsule 1 capsule = 30 mg, By Mouth, Daily, # 30 capsule, 11 Refills, Maintenance, 12/15/22 9:46:00 EST, Capsule, [facility]/pharmacy #2025, Partial fill upon patient request if the prescription is for a schedule II opioid drug., 165, cm, 10/09/22 11:32:00 EST, [facility]... Start Date: 12/15/22 Status: Ordered gabapentin 400 mg oral capsule 1, capsule, By Mouth, 3 times a day, # 90 capsule, Refills 11, Maintenance, 10/07/22 13:28:00 EST, Route to Pharmacy Electronically, [facility], 165, cm, 08/26/22 11:06:00 EST, Height, 64.7, [...] capsule, 3 Refills, Maintenance, 10/15/22 9:58:00 EST, [facility], 165, cm, 10/09/22 11:32:00 EST, Height, 64.7, [...] 01/20/24 13:03:00 EDT, 01/19/23 13:03:00 EDT, Tablet, [facility]/pharmacy #20... Start Date: 01/19/23 Stop Date: 01/20/24 Status: Ordered nystatin 979930 u/ml oral suspension 5 mL, By Mouth, 4 times a day, # 480 mL, 1 Refills, [facility], 165, cm, 03/28/22 11:14:00 EDT, Height, 60.4, kg, 03/06/22 10:48:00 EDT, Dry Weight Start Date: 04/17/22 Status: Ordered ondansetron 4 mg oral tablet, disintegrating 1 tablet = 4 mg, By Mouth, Every 6 hours, PRN Nausea & Vomiting, # 20 each, 1 Refills, Acute 12/12/23 16:51:00 EST, 12/12/22 16:50:00 EST, Tablet, [facility]/pharmacy #2025, Partial fill upon patient request if [...] 01/20/24 13:03:00 EDT, 01/19/23 13:03:00 EDT, Tablet, [facility]/pharmacy #202, refill... Start Date: 01/19/23 Stop Date: 01/20/24 [...] 05/08/23 16:01:00EDT, 05/08/22 16:00:00 EDT, Cream, [facility], Partial fill upon [...] 10 J44.9, PLEASE BILL THROUGH MED B [id number], 165, cm, 06/05/21 10:01:00 EDT, Height, 61.4, [...] Informant Chronic obstructive lung disease Discharge Diagnosis 01/21/23 CHF with cardiomyopathy Discharge Diagnosis 01/21/23 Lumbar radiculopathy Discharge Diagnosis 01/21/23 Chronic prescription opiate use Discharge Diagnosis 01/21/23 Immunodeficiency disorder, hypogammaglobulinemia Discharge Diagnosis 01/21/23 Complex sleep apnea syndrome Discharge Diagnosis 01/21/23 Hypertension Discharge Diagnosis 01/21/23 Hyperglycemia Discharge Diagnosis 01/21/23 Fatty liver Discharge Diagnosis 01/21/23 Anxiety disorder Discharge Diagnosis 01/21/23 Vital Signs Most recent to oldest [Reference Range]: 1 Height 165 cm (01/21/23 10:40 AM) Weight 57.1 kg (01/21/23 10:40 AM) Oxygen Saturation [94-100 %] 96 % (01/21/23 10:40 AM) Pulse Rate [55-90 bpm] 87 bpm (01/21/23 10:40 AM) Body Mass Index [18.5-24.99 kg/m2] 20.97 kg/m2 (01/21/23 10:40 AM) Blood Pressure [90-138/55-84 mm Hg] 112/ 70mm Hg (01/21/23 10:40 AM) Mode of Delivery (Oxygen) Room air (01/21/23 10:40 AM) Blood pressure sites Arm, left (01/21/23 10:40 AM) Weight Obtained Via Standing scale (01/21/23 10:40 AM) Social History Social History Type Response Smoking Status Former smoker, quit more than 30 days ago; Other: quit 20 years ago; entered on: 09/24/19 Sex Patient Care team information Care Team Personnel Name: Joelle Castillo Position: [facility] Onco RN Member Role: Primary Care Nurse Name: Marilee Pitts RN Position: [facility] RN Member Role: Primary Care Nurse Name: Shawnee Schafer RN Position: [facility] SN RN Member Role: Primary Care Nurse Name: Declan Muller MD Position: [facility] Primary Care Physician Member Role: PCP Address: Address: [address] [place] [address] Adult & Pediatric Medicine [place], [place] [address] Name: Aylin Byrne RN Position: S RN Member Role: Primary Care Nurse Name: Blaire Wilde RN Position: [facility] RN Supv Member Role: Primary Care Nurse Name: Edilma Metzger RN Position: S RN Member Role: Primary Care Nurse Name: Katherine Bond RN Position: [facility] SN RN Member Role: Primary Care Nurse Name: Kerry Negron RN Position: [facility] RN Member Role: Primary Care Nurse Name: Missy Avilez RN Position: [facility] Onco RN Member Role: Primary Care Nurse Name: Katina Marcus RN Position: [facility] RN Member Role: Primary Care Nurse Name: Sienna Horne RN Position: [facility] RN Member Role: Primary Care Nurse Name: Ernestine Thomas RN Position: [facility] RN Member Role: Primary Care Nurse Care Team Related Persons Name: TAYLOR JANICE Address: [address] [address]
--- OUTSIDE RECORDS SUMMARY | 2024-05-04 13:20 | XMS_ITS | Continuity of Care Document ---
Author Organization [facility] Address [address] [place] [address]- Care Team Providers Care Radiation Engineer Name Role Phone Declan Muller MD Primary Care Physician [place] [facility] [place] 05/10/20 - 05/17/20 [facility] [address] [place] [address]- [facility] Encounter Diagnosis Mass of skin(Discharge Diagnosis) - 05/10/20 Chronic obstructive lung disease(Discharge Diagnosis) - 05/10/20 Constipation(Discharge Diagnosis) - 05/10/20 Attending Physician: Declan Muller MD Allergies, Adverse [...] Note: given w/out incident/VIS given 7Result Comment: [id number], [id number] [facility] 9Result Comment: [07/21/2014] given w/out incident 10Admin Note: [facility] INFO GIVEN TO PATIENT 11Result Comment: lot #[id number] 12Admin Note: [facility] albuterol 0.083% inhalation solution 3 mL = 2.5 mg, Inhalation, Every 6 hours, PRN for wheezing, # 360 mL, 8 Refills, Maintenance, 07/07/19 14:14:00 EDT, Solution, ICD 10 J44.9, PLEASE BILL THROUGH MED B [id number] Start Date: 07/07/19 Status: Ordered alendronate 70 [...] 11:34:00 EDT, Suspension, Route to Pharmacy Electronically, [id number], [facility]/pharmacy #2024,... Start Date: 03/06/20 Status: [...] 04/23/20 15:59:00 EDT, Route to Pharmacy Electronically, [facility]/pharmacy #2024, 165, cm, 03/12/20 8:39:00 EDT, Height, [...] Required Details, Route to Pharmacy Electronically, [facility]/pharmacy #2024... Start Date: 03/02/20 Status: Ordered doxycycline hyclate 100 mg oral capsule 1 capsule = 100 mg, By Mouth, 2 times a day, for 10 days, # 20 capsule, 0 Refills, Acute 05/19/20 10:10:00 EDT, 05/09/20 10:10:00 EDT, [facility]apsule, [facility], 165, cm, 05/01/20 10:40:00 EDT, Height, 67, [...] 10:31:00 EDT, Route to Pharmacy Electronically, [facility]/pharmacy #5, 165, cm, 01/27/20 8:11:00 EDT, Height, 53.6, kg, 10/14/19 10:56:00 EST, Dry... Start Date: 02/22/20 Status: Ordered lactulose 10 gm/15 ml oral syrup 30 mL = 20 Gm, By Mouth, Daily, PRN as needed for constipation, for 30 days, # 1,000 mL, 2 Refills,Acute 08/15/20 16:25:00 EDT, 05/17/20 16:25:00 EDT, Syrup, [facility], 30 mL By Mouth Daily,x30 days,PRN:as [...] 17:00:00 EDT, 04/23/20 9:58:00 EDT, Tablet, [facility] Start Date: 04/23/20 Stop Date: 05/22/20 Status: Ordered oxyCODONE 10 mg oral tablet 2 tablet = 20 mg, By Mouth, Every 4 hours, PRN as needed for pain, 28 day prescription patient may fill for less than quantity prescribed, # 224 tablet, 0 Refills, Acute 05/22/20 17:00:00 EDT, 04/23/20 9:58:00 EDT, Tablet, [facility]/pharmacy #2025, 165, cm... Start Date: 04/23/20 Stop [...] each, 11 Refills,Maintenance, 04/02/20 11:09:00 EDT, Tablet, [facility]/pharmacy #5, 165, cm, 03/12/20 8:39:00 EDT, Height, 70.7, [...] 03/02/2017:09:00 EDT, Route to Pharmacy Electronically, [facility]/pharmacy #2024 Tablet, 165, cm, 01/27/20 8:11:00 EDT, Height, 53.6, kg, 10/14/19 10:56:00 EST, Dry... Start Date: 03/02/20 Status: Ordered triamcinolone 0.1% topical cream 1 application, Topically, 3 times a day, PRN psoriasis rash, # 60 Gm, 5 Refills, Acute 01/01/21 10:47:00 EDT, 01/02/20 10:46:00 EDT, Cream, [facility]/pharmacy #202, 1 application Topically 3 times a day,PRN:psoriasis rash, 165, cm, 11/17/19 10:08:00 EST, H... Start Date: 01/02/20 Stop Date: 01/01/21 Status: Ordered Ventolin HFA 108 mcg/inh inhalation aerosol with adapter 2 puffs, Inhalation, 4 times a day, PRN for wheezing, # 18 Gm, 11 Refills, Maintenance, 01/13/20 11:40:00 EDT, Aerosol, [facility]/pharmacy #2024, 165, cm, 11/17/19 10:08:00 EST, Height, 53.6, kg, 10/14/19 10:56:00 EST, Dry Weight Start Date: 01/13/20 Status: Ordered Yupelri 175 mcg/3 mL inhalation solution = 175 mcg, Inhalation, Daily, j44.9, # 360 mL, 6 Refills, Maintenance, 03/06/20 11:37:00 EDT, [facility]/pharmacy #2024, ICD 10 J44.9, PLEASE BILL THROUGH MED B [id number], 165, cm, 01/27/20 8:11:00 EDT, Height, 53.6, [...] Effective Dates Health Status Clinical Service Informant Mass of skin Discharge Diagnosis 05/10/20 Chronic obstructive lung disease Discharge Diagnosis 05/10/20 Constipation Discharge Diagnosis 05/10/20 Vital Signs Most recent to oldest [Reference Range]: 1 Height 165 cm (05/10/20 9:25 AM) Weight 67.6 kg (05/10/20 9:25 AM) Oxygen Saturation [94-100 %] 91 % *L* (05/10/20 9:25 AM) Pulse Rate [55-90 bpm] 100 bpm *H* (05/10/20 9:25 AM) Body Mass Index [18.5-24.99] 24.83 (05/10/20 9:25 AM) Blood Pressure [90-138/55-84 mm Hg] 110/ 60mm Hg (05/10/20 9:25 AM) Blood pressure sites Arm, left (05/10/20 9:25 AM) Social History Social History Type Response Smoking Status Former smoker, quit more than 30 days ago; Other: quit 20 years ago; entered on: 09/24/19 Sex
--- OUTSIDE RECORDS SUMMARY | 2024-05-04 13:20 | XMS_ITS | Continuity of Care Document ---
Author Organization [facility] Address [address] [place] [address]- Care Team Providers Care Fibre Optics Jointer Name Role Phone Renzo GRAHAM, Declan Hou Primary Care Physician Encounter [facility] Date(s): 02/29/24 - 03/30/24 [facility] [address] [place], [place] [address] Allergies, Adverse Reactions, Alerts Substance Reaction Severity [...] Vaccine (oldterm) 13 08/19/08 Given 1Result Comment: [facility] [id number] 2Result Comment: [06/22/2018] given at [facility] 3Location History: [facility] 5Admin Note: done @ clinic 6Admin Note: given w/out incident/VIS given 7Result Comment: [id number], [id number] 8Result Comment: DONE AT [facility] 9[facility] 10Result Comment: [07/21/2014] given w/out incident 11Admin Note: [facility] INFO GIVEN TO PATIENT 12Result Comment: lot #[id number] 13Admin Note: [facility] albuterol 0.083% inhalation solution 3 mL = 2.5 mg, Inhalation, Every 6 hours, PRN for wheezing, # 360 mL, 8 Refills, Maintenance, 07/07/19 14:14:00 EDT, Solution, ICD 10 J44.9, PLEASE BILL THROUGH MED B [id number] Start Date: 07/07/19 Status: Ordered albuterol 90 [...] 11:34:00 EDT, Suspension, Route to Pharmacy Electronically, [id number], [facility]/pharmacy #2025,... Start Date: 03/06/20 Status: Ordered calcium-vitamin D 600 mg-400 intl units oral tablet 1 tablet, By Mouth, 2 times a day, # 180 tablet, 1 Refills, Maintenance, 10/07/22 11:54:00 EST, [facility], 90, TAKE 1 TABLET BY MOUTH TWICE A DAY, 165, cm, 08/26/22 11:06:00 EST, Height, 64.7, kg, 10/03/22 8:14:00 EST, Dry Weight Start Date: 10/07/22 Status: Ordered cetirizine 10 mg oral tablet 1 tablet, By Mouth, Daily, PRN NEEDED FOR SINUS SYMPTOMS, # 90 tablet, 1 Refills, Maintenance, 12/09/23 1:28:00 EST, [facility]/pharmacy #2024, 165, cm, 09/30/23 10:35:00 EST, Height, 53.7, kg, 11/27/23 8:47:00 EST, Dry Weight Start Date: 12/09/23 Status: Ordered cyclobenzaprine 10 mg oral tablet 1/2 OR 1 TABLET, By Mouth, 2 times a day, PRN, # 60 tablet, Refills 5, Tot. Refills 5, Maintenance, NEEDED FOR MUSCLE PAIN OR SPASM, 01/13/24 12:46:00 EDT, Route to Pharmacy Electronically, [facility]/pharmacy #5, 165, cm, 12/30/23 11:12:00 EDT, Height... [...] capsule, 1 Refills, Maintenance, 02/29/24 11:02:00 EDT, [facility]/pharmacy #202, 165, cm, 12/30/23 11:12:00 EDT, Height, [...] 5 Refills, Maintenance, 01/08/24 12:43:00 EDT, Tablet, [facility]/pharmacy #2024, Partial fill upon patient request if the prescription is for a schedule II opioid drug., 165,... Start Date: 01/08/24 Status: Ordered methadone 10 mg oral tablet See Instructions, PRN for pain, 1 tablet By Mouth twice daily, # 56 each, 0 Refills, Maintenance, 03/28/24 14:34:00 EDT, Tablet, [facility]/pharmacy #202, refill when due, 165, cm, 12/30/23 [...] drug. Start Date: 12/30/23 Status: Ordered nystatin 825317 u/ml oral suspension 5 mL, By Mouth, 4 times a day, # 480 mL, 1 Refills, Physician Stop 09/30/24 11:03:00 EST, 09/30/23 11:02:00 EST, [facility]/pharmacy #2024, 165, cm, 09/30/23 10:35:00 EST, Height, 55, kg, 09/30/23 10:35:00 EST, Dry Weight Start Date: 09/30/23 Stop Date: 09/30/24 Status: Ordered ondansetron 4 mg oral tablet, disintegrating 1 tablet = 4 mg, By Mouth, Every 6 hours, PRN Nausea & Vomiting, # 20 each, 1 Refills, Acute 12/28/24 12:00:00 EDT, 12/29/23 12:52:00 EDT, Tablet, [facility]/pharmacy #2024, Partial fill upon patient request if [...] 01/22/24 7:51:00 EDT, Route to Pharmacy Electronically, [facility]/pharmacy #2024, Partial fill upon patient request if [...] 10 J44.9, PLEASE BILL THROUGH MED B [id number], 165, cm, 06/05/21 10:01:00 EDT, Height, 61.4, [...] Care Team Personnel Name: Joelle Castillo Position: [facility] Onco RN Member Role: Primary Care Nurse Name: Shawnee Schafer RN Position: [facility] SN RN Member Role: Primary Care Nurse Name: Declan Muller MD Position: [facility] Physician - Primary Care Member Role: PCP Address: Address: [address] [place] [address] & [place] [address]- Name: Aylin Byrne RN Position: [facility] RN Member Role: Primary Care Nurse Name: Edilma Metzger RN Position: [facility] RN Member Role: Primary Care Nurse Name: Katherine Bond RN Position: [facility] SN RN Member Role: Primary Care Nurse Name: Gena Chavez RN Position: [facility] flag signalman Member Role: Low Vision Therapist Name: Kerry Negron RN Position: [facility] RN Member Role: Primary Care Nurse Name: Joslyn Dodge RN Position: [facility] AMB Nurse Member Role: Primary Care Nurse Name: Missy Avilez RN Position: [facility] Onco RN Member Role: Primary Care Nurse Name: Katina Marcus RN Position: [facility] RN Member Role: Primary Care Nurse Name: Sienna Horne RN Position: [facility] RN Member Role: Primary Care Nurse Name: Ernestine Thomas RN Position: [facility] RN Member Role: Primary Care Nurse Care Team Related Persons Name: JANICE TAYLOR Address: [address] [address]
--- OUTSIDE RECORDS SUMMARY | 2024-05-04 13:20 | XMS_ITS | Continuity of Care Document ---
Author Organization [facility] Address [address] [place] [address]- Care Team Providers Care Mill Feeder Name Role Phone Declan Muller MD Primary Care Physician [place] [facility] [place](s): 01/04/21 - 02/03/[address] [address]- Attending Physician: Admbernadine, Kaleb Admitting Physician: Admtr, Ar8 Referring Physician: Admtr, Ar8 Allergies, Adverse [...] Note: given w/out incident/VIS given 7Result Comment: [id number], [id number] [facility] 9Result Comment: [07/21/2014] given w/out incident 10Admin Note: [facility] INFO GIVEN TO PATIENT 11Result Comment: lot #[id number] 12Admin Note: [facility] albuterol 0.083% inhalation solution 3 mL = 2.5 mg, Inhalation, Every 6 hours, PRN for wheezing, # 360 mL, 8 Refills, Maintenance, 07/07/19 14:14:00 EDT, Solution, ICD 10 J44.9, PLEASE BILL THROUGH MED B [id number] Start Date: 07/07/19 Status: Ordered alendronate 70 [...] 11:34:00 EDT, Suspension, Route to Pharmacy Electronically, [id number], [facility]/pharmacy #2024,... Start Date: 03/06/20 Status: Ordered calcium-vitamin D 600 mg-400 intl units oral tablet See Instructions, 1 tablet By Mouth twice daily, # 60 tablet, 11 Refills, Maintenance, 07/04/20 15:50:00 EDT, Tablet, [facility]/pharmacy #2024, 1 tablet By Mouth [...] 11/21/20 12:23:00 EST, Route to Pharmacy Electronically, [facility]/pharmacy #2024, 165, cm, 05/17/20 16:00:00 EDT, Height, 66.5,... Start Date: 11/21/20 Stop Date: 11/21/21 Status: Ordered docusate sodium 100 mg oral capsule 2 capsule, By Mouth, 2 times a day, PRN NEEDED FOR CONSTIPATION FOR, # 120 capsule, 11 Refills, Maintenance, 11/21/20 16:36:00 EST, [facility]249, 165, cm, 05/17/20 16:00:00 EDT, Height, 66.5, [...] 01/30/21 11:23:00 EDT, Route to Pharmacy Electronically, [facility], 165, cm, 12/20/20 10:40:00 EST, Height, 66.7, kg, 01/18/21 9:32:00 EDT, Dry Weight Start Date: 01/30/21 Status: Ordered losartan 50 mg oral tablet 50 mg, 1, tablet, By Mouth, Daily, # 30 tablet, Refills 6, Tot. Refills 6, Maintenance, 10/05/20 10:44:00 EST, Route to Pharmacy Electronically, [facility]/pharmacy #2025, Partial fill upon patient [...] 02/24/21 17:00:00 EDT, 01/25/21 8:00:00 EDT, Tablet, [facility]/pharmacy #202... Start Date: 01/25/21 Stop Date: 02/24/21 Status: Ordered naproxen 500 mg oral tablet 1 tablet = 500 mg, By Mouth, 2 times a day, PRN joint or muscle pain, # 60 tablet, 11 Refills, Acute 06/11/21 11:08:00 EDT, 06/11/20 11:08:00 EDT, Tablet, [facility]/pharmacy #2025, 165, cm, 05/17/20 16:00:00 EDT, [...] Refills, Acute, 05/22/20 11:58:00 EDT, [facility], 165, cm, 05/17/20 16:00:00 EDT, Height, 67, [...] Maintenance, 03/02/2017:09:00 EDT, Route to Pharmacy Electronically, [facility]/pharmacy #2024 Tablet, 165, cm, 01/27/20 8:11:00 EDT, Height, 53.6, kg, 10/14/19 10:56:00 EST, Dry... Start Date: 03/02/20 Status: Ordered Ventolin HFA 108 mcg/inh inhalation aerosol with adapter 2 puffs, Inhalation, 4 times a day, PRN for wheezing, # 18 Gm, 11 Refills, Maintenance, 01/13/20 11:40:00 EDT, Aerosol, [facility]/pharmacy #2024, 165, cm, 11/17/19 10:08:00 EST, Height, 53.6, kg, 10/14/19 10:56:00 EST, Dry Weight Start Date: 01/13/20 Status: Ordered Yupelri 175 mcg/3 mL inhalation solution = 175 mcg, Inhalation, Daily, j44.9 please bill through med B, # 120 mL, 3 Refills, Maintenance, 01/22/21 8:54:00 EDT, [facility]/pharmacy #2024, ICD 10 J44.9, PLEASE BILL THROUGH MED B [id number], 165, cm, 12/20/20 10:40:00 EST, Height, 66.7, kg, ... Start Date: 01/22/21 Status: Ordered Zithromax 250 mg oral tablet See Instructions, 1 tablet By Mouth Daily on thursday, thursday, and thursday, # 12 tablet, 11 Refills, Maintenance, 07/11/20 12:50:00 EDT, Tablet, [facility]/pharmacy #2024, 165, cm, 05/17/20 16:00:00 [...]
--- OUTSIDE RECORDS SUMMARY | 2024-05-04 13:20 | XMS_ITS | Continuity of Care Document ---
Author Organization [facility] Address [address] [place] [address]- Care Team Providers Care Coil Connector Name Role Phone Declan Muller MD Primary Care Physician Encounter [facility] Date(s): 11/30/20 - 12/30/20 [facility] [address] [place] [address]- Allergies, Adverse Reactions, Alerts Substance Reaction Severity [...] Note: given w/out incident/VIS given 7Result Comment: [id number], [id number] [facility] 9Result Comment: [07/21/2014] given w/out incident 10Admin Note: [facility] INFO GIVEN TO PATIENT 11Result Comment: lot #[id number] 12Admin Note: [facility] albuterol 0.083% inhalation solution 3 mL = 2.5 mg, Inhalation, Every 6 hours, PRN for wheezing, # 360 mL, 8 Refills, Maintenance, 07/07/19 14:14:00 EDT, Solution, ICD 10 J44.9, PLEASE BILL THROUGH MED B [id number] Start Date: 07/07/19 Status: Ordered alendronate 70 [...] 11:34:00 EDT, Suspension, Route to Pharmacy Electronically, [id number], [facility]/pharmacy #2024,... Start Date: 03/06/20 Status: Ordered calcium-vitamin D 600 mg-400 intl units oral tablet See Instructions, 1 tablet By Mouth twice daily, # 60 tablet, 11 Refills, Maintenance, 07/04/20 15:50:00 EDT, Tablet, [facility]/pharmacy #2024, 1 tablet By Mouth twice [...] 11/21/20 12:23:00 EST, Route to Pharmacy Electronically, [facility]/pharmacy #2024, 165, cm, 05/17/20 16:00:00 EDT, Height, 66.5,... Start Date: 11/21/20 Stop Date: 11/21/21 Status: Ordered docusate sodium 100 mg oral capsule 2 capsule, By Mouth, 2 times a day, PRN NEEDED FOR CONSTIPATION FOR, # 120 capsule, 11 Refills, Maintenance, 11/21/20 16:36:00 EST, [facility] STORE 99976, 165, cm, 05/17/20 16:00:00 EDT, Height, 66.5, [...] 02/22/20 10:31:00 EDT, Route to Pharmacy Electronically, [facility]/pharmacy #2024, 165, cm, 01/27/20 8:11:00 EDT, Height, 53.6, kg, 10/14/19 10:56:00 EST, Dry... Start Date: 02/22/20 Status: Ordered losartan 50 mg oral tablet 50 mg, 1, tablet, By Mouth, Daily, # 30 tablet, Refills 6, Tot. Refills 6, Maintenance, 10/05/20 10:44:00 EST, Route to Pharmacy Electronically, [facility]/pharmacy #202, Partial fill upon patient request [...] 11:08:00 EDT, 06/11/20 11:08:00 EDT, Tablet, [facility], 165, cm, 05/17/20 16:00:00 EDT, [...] 17:00:00 EDT, 12/28/20 10:03:00 EST, Tablet, [facility], refill... Start Date: 12/28/20 Stop Date: 01/28/21 [...] Refills, Acute, 05/22/20 11:58:00 EDT, [facility], 165, cm, 05/17/20 16:00:00 EDT, Height, 67, [...] Maintenance, 03/02/2017:09:00 EDT, Route to Pharmacy Electronically, [facility]/pharmacy #2024 Tablet, 165, cm, 01/27/20 8:11:00 EDT, Height, 53.6, kg, 10/14/19 10:56:00 EST, Dry... Start Date: 03/02/20 Status: Ordered triamcinolone 0.1% topical cream 1 application, Topically, 3 times a day, PRN psoriasis rash, # 60 Gm, 5 Refills, Acute 01/01/21 10:47:00 EDT, 01/02/20 10:46:00 EDT, Cream, [facility]/pharmacy #2024, 1 application Topically 3 times a day,PRN:psoriasis rash, 165, cm, 11/17/19 10:08:00 EST, H... Start Date: 01/02/20 Stop Date: 01/01/21 Status: Ordered Ventolin HFA 108 mcg/inh inhalation aerosol with adapter 2 puffs, Inhalation, 4 times a day, PRN for wheezing, # 18 Gm, 11 Refills, Maintenance, 01/13/20 11:40:00 EDT, Aerosol, [facility]/pharmacy #2024, 165, cm, 11/17/19 10:08:00 EST, Height, 53.6, kg, 10/14/19 10:56:00 EST, Dry Weight Start Date: 01/13/20 Status: Ordered Yupelri 175 mcg/3 mL inhalation solution = 175 mcg, Inhalation, Daily, j44.9, # 360 mL, 6 Refills, Maintenance, 03/06/20 11:37:00 EDT, [facility]/pharmacy #2024, ICD 10 J44.9, PLEASE BILL THROUGH MED B [id number], 165, cm, 01/27/20 8:11:00 EDT, Height, 53.6, kg, 10/14/19 10:56:00 EST, Dry Weight Start Date: 03/06/20 Status: Ordered Zithromax 250 mg oral tablet See Instructions, 1 tablet By Mouth Daily on thursday, thursday, and thursday, # 12 tablet, 11 Refills, Maintenance, 07/11/20 12:50:00 EDT, Tablet, [facility]/pharmacy #2025, 165, cm, 05/17/20 16:00:00 EDT, [...]
--- OUTSIDE RECORDS SUMMARY | 2024-05-04 13:21 | XMS_ITS | Continuity of Care Document ---
Author Organization [facility] Address [address] [place] [address]- Care Team Providers Care Pharmacy Affairs Assistant Name Role Phone Declan Muller MD Primary Care Physician Encounter [facility] [place] Date(s): 06/05/22 - 07/05/22 [facility] [address] [place] [address]- Attending Physician: Kaleb De Leon Admitting Physician: Kaleb De Leon Referring Physician: AdmtrKaleb Allergies, Adverse Reactions, Alerts Substance Reaction Severity Status Augmentin gi upset Active Levaquin tendon pains Active Bactrim DS lightheaded and loopy Acti ve Immunizations Given and Recorded Vaccine Date Status Refusal Reason zoster vaccine, inactivated 06/18/22 Recorded tetanus/diphtheria/pertussis, acel(Tdap) [...] 12 08/19/08 Given 1Result Comment: DONE AT [facility] 2Result Comment: [06/22/2018] given at [facility] 3Location History: [facility] 4Location History: [facility] 5Admin Note: done @ clinic 6Admin Note: given w/out incident/VIS given 7Result Comment: [id number], [id number] [facility] 9Result Comment: [07/21/2014] given w/out incident 10Admin Note: [facility] INFO GIVEN TO PATIENT 11Result Comment: lot #[id number] 12Admin Note: [facility] albuterol 0.083% inhalation solution 3 mL = 2.5 mg, Inhalation, Every 6 hours, PRN for wheezing, # 360 mL, 8 Refills, Maintenance, 07/07/19 14:14:00 EDT, Solution, ICD 10 J44.9, PLEASE BILL THROUGH MED B [id number] Start Date: 07/07/19 Status: Ordered albuterol 90 mcg/inh inhalation aerosol 0 Refills, Maintenance Start Date: 04/30/20 Status: Ordered Ativan 1 mg oral tablet 1 tablet = 1 mg, By Mouth, 3 times a day, PRN for anxiety, # 84 each, 0 Refills, Acute 06/20/23 12:44:00 EDT, 06/20/22 12:44:00 EDT, Tablet, [facility], 165, cm, 04/17/22 13:32:00 EDT, Height, 60.6, kg, 04/18/22 8:40:00 EDT, Dry Weight Start Date: 06/20/22 Stop Date: 06/20/23 Status: Ordered Brovana 15 mcg/2 mL inhalation [...] 11:34:00 EDT, Suspension, Route to Pharmacy Electronically, [id number], [facility]/pharmacy #2025,... Start Date: 03/06/20 Status: Ordered calcium-vitamin D 600 mg-400 intl units oral tablet See Instructions, 1 tablet By Mouth twice daily, # 60 tablet, 11 Refills, Maintenance, 10/28/21 10:33:00 EST, Tablet, [facility]/pharmacy #202, 1 tablet By Mouth twice daily, 165, cm, 10/25/21 17:56:00 EST, Height, 54.5, kg, 10/25/21 17:05:00 EST, Dry Weight Start Date: 10/28/21 Status: Ordered cyclobenzaprine 10 mg oral tablet See Instructions, PRN, one half or 1 tablet By Mouth twice daily as needed for muscle pain or spasm, # 60 each, Refills 11, Tot. Refills 11, Physician Stop 04/18/23 7:50:00 EDT, NEEDED FOR PAIN, 04/18/22 7:49:00 EDT, Instructions Replace Required D... Start Date: 04/18/22 Stop Date: 04/18/23 Status: Ordered Daliresp By Mouth, Daily, 0 Refills, Maintenance, 03/06/22 12:15:00 EDT, Partial fill upon patient request if the prescription is for a schedule II opioid drug. Start Date: 03/06/22 Status: Ordered docusate sodium 100 mg oral capsule 2 capsule, By Mouth, 2 times a day, PRN NEEDED FOR CONSTIPATION FOR, # 120 capsule, 5 Refills, Maintenance, 12/30/21 10:25:00 EDT, [facility]/pharmacy #2025, 165, cm, 12/23/21 9:22:00 EST, Height, 54.5, kg, 10/25/21 17:05:00 EST, Dry Weight Start Date: 12/30/21 Stop Date: 06/28/22 Status: Ordered duloxetine 30 mg oral enteric [...] 09/09/21 11:35:00 EST, Route to Pharmacy Electronically, [facility]/pharmacy #2025, dose increase, refill when needed, 165, cm, 09/09/21 11:19:00 EST, Height, 61.4, kg,... Start Date: 09/09/21 Status: Ordered Linzess 290 mcg oral capsule 1 capsule = 290 mcg, By Mouth, Daily, # 30 capsule, 3 Refills, Maintenance, 06/27/22 13:21:00 EDT, Capsule, [facility]/pharmacy #2025, Partial fill upon patient request if the prescription is for a scheduleII opioid drug., 165, cm, 04/17/22 13:32:00 EDT, He... Start Date: 06/27/22 Status: Ordered Linzess 290 mcg oral capsule 1 capsule, By Mouth, Daily, # 30 capsule, 3 Refills, Maintenance, 06/24/22 12:21:00 EDT, [facility], 165, cm, 04/17/22 13:32:00 EDT, Height, 60.6, kg, 04/18/22 8:40:00 EDT, Dry Weight Start Date: 06/24/22 Status: Ordered methadone 10 mg oral tablet See Instructions, PRN for pain, 2 tablets By Mouth in the morning, 1 tablet in the afternoon, and 3tablets by mouth in the evening 28 day schedule, # 168 each, 0 Refills, Acute 06/20/23 12:45:00 EDT, 06/20/22 12:45:00 EDT, Tablet, [facility]/pharmacy #20... Start Date: 06/20/22 Stop Date: 06/20/23 Status: Ordered nystatin 312044 u/ml oral suspension 5 mL, By Mouth, 4 times a day, # 480 mL, 1 Refills, [facility], 165, cm, 03/28/22 11:14:00 EDT, Height, 60.4, kg, 03/06/22 10:48:00 EDT, Dry Weight Start Date: 04/17/22 Status: Ordered oxyCODONE 10 mg oral tablet 2 tablet = 20 mg, By Mouth, Every 4 hours, PRN as needed for pain, 28 day prescription patient may fill for less than quantity prescribed, # 224 tablet, 0 Refills, Acute 06/20/23 12:45:00 EDT, 06/20/22 12:45:00 EDT, Tablet, [facility]/pharmacy #2025, refill... Start Date: 06/20/22 Stop Date: 06/20/23 Status: Ordered pantoprazole 40 mg oral delayed [...] Acute 05/08/23 16:01:00EDT, 05/08/22 16:00:00 EDT, Cream, [facility]/pharmacy #2025, Partial fill upon patient request [...] 10 J44.9, PLEASE BILL THROUGH MED B [id number], 165, cm, 06/05/21 10:01:00 EDT, Height, 61.4, [...] 20 years ago; entered on: 09/24/19 Sex Care Team Personnel Name: Renzo GRAHAM, Declan Hou Address: [address] [place] [address] [facility] [address]
--- OUTSIDE RECORDS SUMMARY | 2024-05-04 13:21 | XMS_ITS | Continuity of Care Document ---
Author Organization [facility] Address [address] [address]- Care Team Providers Care Price Economist Name Role Phone Renzo GRAHAM, Declan Hou Primary Care Physician [phone] Encounter [facility] Date(s): 05/10/20 - 05/17/[address] [address] Attending Physician: Julio Sherwood MD Admitting Physician: Julio Sherwood MD Referring Physician: Julio Sherwood MD Allergies, Adverse Reactions, Alerts Substance Reaction [...] Note: given w/out incident/VIS given 7Result Comment: [id number], [id number] [facility] 9Result Comment: [07/21/2014] given [...] 10 J44.9, PLEASE BILL THROUGH MED B [id number] Start Date: 07/07/19 Status: Ordered alendronate 70 [...] 11:34:00 EDT, Suspension, Route to Pharmacy Electronically, [id number], [facility]/pharmacy #2024,... Start Date: 03/06/20 Status: Ordered calcium-vitamin [...] 15:59:00 EDT, Route to Pharmacy Electronically, [facility]/pharmacy #2024, 165, cm, 03/12/20 8:39:00 EDT, Height, [...] Required Details, Route to Pharmacy Electronically, [facility]/pharmacy #2024... Start Date: 03/02/20 Status: Ordered doxycycline hyclate 100 mg oral capsule 1 capsule = 100 mg, By Mouth, 2 times a day, for 10 days, # 20 capsule, 0 Refills, Acute 05/19/20 10:10:00 EDT, 05/09/20 10:10:00 EDT, Capsule, [facility]/pharmacy #2025, 165, cm, 05/01/20 10:40:00 EDT, Height, 67, [...] 10:31:00 EDT, Route to Pharmacy Electronically, [facility]/pharmacy #5, 165, cm, 01/27/20 8:11:00 EDT, Height, 53.6, kg, 10/14/19 10:56:00 EST, Dry... Start Date: 02/22/20 Status: Ordered lactulose 10 gm/15 ml oral syrup 30 mL = 20 Gm, By Mouth, Daily, PRN as needed for constipation, for 30 days, # 1,000 mL, 2 Refills,Acute 08/15/20 16:25:00 EDT, 05/17/20 16:25:00 EDT, Syrup, [facility]/pharmacy #2025, 30 mL By Mouth Daily,x30 days,PRN:as [...] 17:00:00 EDT, 04/23/20 9:58:00 EDT, Tablet, [facility]/pharmacy #202... Start Date: 04/23/20 Stop Date: 05/22/20 Status: Ordered oxyCODONE 10 mg oral tablet 2 tablet = 20 mg, By Mouth, Every 4 hours, PRN as needed for pain, 28 day prescription patient may fill for less than quantity prescribed, # 224 tablet, 0 Refills, Acute 05/22/20 17:00:00 EDT, 04/23/20 9:58:00 EDT, Tablet, [facility]/pharmacy #2024, 165, cm... Start Date: 04/23/20 Stop [...] 11 Refills,Maintenance, 04/02/20 11:09:00 EDT, Tablet, [facility]/pharmacy #2024, 165, cm, 03/12/20 8:39:00 EDT, Height, [...] 03/02/2017:09:00 EDT, Route to Pharmacy Electronically, [facility]/pharmacy #2024 Tablet, 165, cm, 01/27/20 8:11:00 EDT, Height, 53.6, kg, 10/14/19 10:56:00 EST, Dry... Start Date: 03/02/20 Status: Ordered triamcinolone 0.1% topical cream 1 application, Topically, 3 times a day, PRN psoriasis rash, # 60 Gm, 5 Refills, Acute 01/01/21 10:47:00 EDT, 01/02/20 10:46:00 EDT, Cream, [facility]/pharmacy #202, 1 application Topically 3 times a [...] 10 J44.9, PLEASE BILL THROUGH MED B [id number], 165, cm, 01/27/20 8:11:00 EDT, Height, 53.6, [...]
--- OUTSIDE RECORDS SUMMARY | 2024-05-04 13:21 | XMS_ITS | Continuity of Care Document ---
Author Organization [facility] Address [address] [place] [address]- Care Team Providers Care Die Barber Name Role Phone Renzo GRAHAM, Declan Hou Primary Care Physician Encounter [facility] Date(s): 04/17/21 - 05/17/21 [facility] [address] [place], [place] [address] Attending Physician: Kaleb De Leon Admitting Physician: [...] Note: given w/out incident/VIS given 7Result Comment: [id number], [id number] [facility] 9Result Comment: [07/21/2014] given w/out incident 10Admin Note: [facility] INFO GIVEN TO PATIENT 11Result Comment: lot #[id number] 12Admin Note: [facility] albuterol 0.083% inhalation solution 3 mL = 2.5 mg, Inhalation, Every 6 hours, PRN for wheezing, # 360 mL, 8 Refills, Maintenance, 07/07/19 14:14:00 EDT, Solution, ICD 10 J44.9, PLEASE BILL THROUGH MED B [id number] Start Date: 07/07/19 Status: Ordered alendronate 70 [...] 11:34:00 EDT, Suspension, Route to Pharmacy Electronically, [id number], [facility]/pharmacy #2024,... Start Date: 03/06/20 Status: Ordered calcium-vitamin D 600 mg-400 intl units oral tablet See Instructions, 1 tablet By Mouth twice daily, # 60 tablet, 11 Refills, Maintenance, 07/04/20 15:50:00 EDT, Tablet, [facility]/pharmacy #2024, 1 tablet By Mouth twice [...] 12:23:00 EST, Route to Pharmacy Electronically, [facility]/pharmacy #2024, 165, cm, 05/17/20 16:00:00 EDT, Height, 66.5,... Start Date: 11/21/20 Stop Date: 11/21/21 Status: Ordered docusate sodium 100 mg oral capsule 2 capsule, By Mouth, 2 times a day, PRN NEEDED FOR CONSTIPATION FOR, # 120 capsule, 11 Refills, Maintenance, 11/21/20 16:36:00 EST, [facility] STORE [address]5827, 165, cm, 05/17/20 16:00:00 EDT, Height, 66.5, [...] 01/30/21 11:23:00 EDT, Route to Pharmacy Electronically, [facility] STORE 50049, 165, cm, 12/20/20 10:40:00 EST, Height, 66.7, [...] 06/17/21 17:00:00 EDT, 05/17/21 8:06:00 EDT, Tablet, [facility]/pharmacy #202... Start Date: 05/17/21 Stop Date: [...] 06/17/21 17:00:00 EDT, 05/17/21 8:06:00 EDT, Tablet, [facility]/pharmacy #2025, refill... Start Date: 05/17/21 Stop [...] tablet, 3 Refills, Maintenance, 07/04/20 15:51:00 EDT, [facility]/pharmacy #2025, 165, cm, 05/17/20 16:00:00 EDT, Height, 67, kg, 05/01/20 10:40:00 EDT, Dry Weight Start Date: 07/04/20 Status: Ordered Senna 8.6 mg oral tablet 8.6 mg, 1, tablet, By Mouth, Daily, # 30 tablet, Refills 11, Tot. Refills 11, Maintenance, 03/02/2017:09:00 EDT, Route to Pharmacy Electronically, [facility]/pharmacy #2025 Tablet, 165, cm, 01/27/20 8:11:00 EDT, Height, 53.6, kg, 10/14/19 10:56:00 EST, Dry... Start Date: 03/02/20 Status: Ordered Ventolin HFA 108 mcg/inh inhalation aerosol with adapter 2 puffs, Inhalation, 4 times a day, PRN for wheezing, # 18 Gm, 11 Refills, Maintenance, 01/13/20 11:40:00 EDT, Aerosol, [facility]/pharmacy #2025, 165, cm, 11/17/19 10:08:00 EST, Height, 53.6, kg, 10/14/19 10:56:00 EST, Dry Weight Start Date: 01/13/20 Status: Ordered Yupelri 175 mcg/3 mL inhalation solution = 175 mcg, Inhalation, Daily, j44.9 please bill through med B, # 120 mL, 3 Refills, Maintenance, 01/22/21 8:54:00 EDT, [facility], ICD 10 J44.9, PLEASE BILL THROUGH MED B [id number], 165, cm, 12/20/20 10:40:00 EST, Height, 66.7, [...] [18.50-24.99] 22.71 (03/11/12 1:38 PM) 25.35 *H* (9/27/11 4:16 PM) Blood Pressure [90-138/55-84 mm Hg] [...]
--- OUTSIDE RECORDS SUMMARY | 2024-05-04 13:21 | XMS_ITS | Continuity of Care Document ---
Author Organization [facility] Address [address] [place] [address]- Care Team Providers Care Soubrette Name Role Phone Renzo GRAHAM, Declan Hou Primary Care Physician [phone] Encounter [facility] Date(s): 08/31/23 - 09/30/23 [facility] [address] [place], [place] [address] Allergies, Adverse Reactions, Alerts Substance [...] 1Result Comment: [facility] [id number] 2Result Comment: [06/22/2018] given at [facility] 3Location History: [facility] 4Location History: [facility] 5Admin Note: done @ clinic 6Admin Note: given w/out incident/VIS given 7Result Comment: [id number], [id number] 8Result Comment: DONE AT [facility] 10Result Comment: [07/21/2014] given w/out incident 11Admin Note: [facility] INFO GIVEN TO PATIENT 12Result Comment: lot #[id number] 13Admin Note: [facility] albuterol 0.083% inhalation solution 3 mL = 2.5 mg, Inhalation, Every 6 hours, PRN for wheezing, # 360 mL, 8 Refills, Maintenance, 07/07/19 14:14:00 EDT, Solution, ICD 10 J44.9, PLEASE BILL THROUGH MED B [id number] Start Date: 07/07/19 Status: Ordered albuterol 90 [...] 11:34:00 EDT, Suspension, Route to Pharmacy Electronically, [id number], [facility]/pharmacy #2024,... Start Date: 03/06/20 Status: Ordered calcium-vitamin D 600 mg-400 intl units oral tablet 1 tablet, By Mouth, 2 times a day, # 180 tablet, 1 Refills, Maintenance, 10/07/22 11:54:00 EST, [facility], 90, TAKE 1 TABLET BY MOUTH TWICE [...] 14:08:00 EST, Route to Pharmacy Electronically, [facility]/pharmacy #2024, 165, cm, 09/04/23 8:51:00 EST, Height,... [...] Refills,Maintenance, 09/30/23 11:27:00 EST, EC Tablet, [facility]/pharmacy #2025, Partial fill upon patient request if [...] 11 Refills, Maintenance, 03/03/23 10:03:00 EDT, [facility]/pharmacy #2025, 165, cm, 01/21/23 10:40:00 EDT, Height, 55.8, kg, 01/23/23 8:24:00 EDT, Dry Weight Start Date: 03/03/23 Stop Date: 02/26/24 Status: Ordered duloxetine 30 mg oral enteric coated capsule 1 capsule = 30 mg, By Mouth, Daily, # 30 capsule, 11 Refills, Maintenance, 09/14/23 16:34:00 EST, Capsule, [facility]/pharmacy #202, Partial fill upon patient request if the prescription is for a schedule II opioid drug., 165, cm, 09/04/23 8:51:00 EST, .. Start Date: 09/14/23 Status: Ordered gabapentin 400 mg oral capsule 1, capsule, By Mouth, 3 times a day, # 90 capsule, Refills 11, Maintenance, 10/07/22 13:28:00 EST, Route to Pharmacy Electronically, [facility], 165, cm, 08/26/22 11:06:00 EST, Height, 64.7, [...] Refills, Maintenance, 10/15/22 9:58:00 EST, [facility], 165, cm, 10/09/22 11:32:00 EST, Height, 64.7, [...] 14:08:00 EST, 09/24/23 14:07:00 EST, Tablet, [facility]/pharmacy #20... Start Date: 09/24/23 Stop Date: 09/24/24 Status: Ordered nystatin 068173 u/ml oral suspension 5 mL, By Mouth, [...] 10 J44.9, PLEASE BILL THROUGH MED B [id number], 165, cm, 06/05/21 10:01:00 EDT, Height, 61.4, [...] Care Team Personnel Name: Joelle Castillo Position: [facility] Onczana RN Member Role: Primary Care Nurse Name: Marilee Pitts RN Position: [facility] RN Member Role: Primary Care Nurse Name: Shawnee Schafer RN Position: [facility] SN RN Member Role: Primary Care Nurse Name: Declan Muller MD Position: [facility] Physician - Primary Care Member Role: PCP Address: Address: [address] [place] [address] Adult & Pediatric Medicine [place], [place] [address] Name: Aylin Byrne RN Position: [facility] RN Member Role: Primary Care Nurse Name: Edilma Metzger RN Position: [facility] RN Member Role: Primary Care Nurse Name: Katherine Bond RN Position: [facility] SN RN Member Role: Primary Care Nurse Name: Kerry Negron RN Position: [facility] RN Member Role: Primary Care Nurse Name: Joslyn Dodge RN Position: [facility] SN RN Member Role: Primary Care Nurse Name: Missy Avilez RN Position: [facility] Onco RN Member Role: Primary Care Nurse Name: Katina Marcus RN Position: [facility] RN Member Role: Primary Care Nurse Name: Sienna Horne RN Position: [facility] RN Member Role: Primary Care Nurse Name: Ernestine Thomas RN Position: [facility] RN Member Role: Primary Care Nurse Care Team Related Persons Name: JANICE TAYLOR Address: [address] [address]
--- OUTSIDE RECORDS SUMMARY | 2024-05-04 13:21 | XMS_ITS | Continuity of Care Document ---
Author Organization 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 [address] [place], [place] [address] Allergies, Adverse Reactions, Alerts Substance Reaction [...] (oldterm) 13 08/19/08 Given 1Result Comment: [facility] [id number] 2Result Comment: [06/22/2018] given at [facility] 3Location History: [facility] 4Location History: [facility] 5Admin Note: done @ clinic 6Admin Note: given w/out incident/VIS given 7Result Comment: [id number] 8Result Comment: DONE AT [facility] 10Result Comment: [07/21/2014] given w/out incident 11Admin Note: [facility] INFO GIVEN TO PATIENT 12Result Comment: lot #[id number] 13Admin Note: [facility] albuterol 0.083% inhalation solution 3 mL = 2.5 mg, Inhalation, Every 6 hours, PRN for wheezing, # 360 mL, 8 Refills, Maintenance, 07/07/19 14:14:00 EDT, Solution, ICD 10 J44.9, PLEASE BILL THROUGH MED B [id number] Start Date: 07/07/19 Status: Ordered albuterol 90 mcg/inh inhalation aerosol 0 Refills, Maintenance Start Date: 04/30/20 Status: Ordered Ativan 1 mg oral tablet 1 tablet = 1 mg, By Mouth, 3 times a day, PRN for anxiety, # 84 each, 0 Refills, Acute 12/19/23 12:59:00 EST, 12/18/22 12:59:00 EST, Tablet, [facility], 165, cm, 12/16/22 12:53:00 EST, Height, 64.7, kg, 10/03/22 8:14:00 EST, Dry Weight Start Date: 12/18/22 Stop Date: 12/19/23 Status: Ordered Brovana 15 mcg/2 mL inhalation [...] 11:34:00 EDT, Suspension, Route to Pharmacy Electronically, [id number], [facility]/pharmacy #[id number],... Start Date: 03/06/20 Status: Ordered calcium-vitamin D 600 mg-400 intl units oral tablet 1 tablet, By Mouth, 2 times a day, # 180 tablet, 1 Refills, Maintenance, 10/07/22 11:54:00 EST, [facility], 90, TAKE 1 TABLET BY MOUTH TWICE A DAY, 165, cm, 08/26/22 11:06:00 EST, Height, 64.7, kg, 10/03/22 8:14:00 EST, Dry Weight Start Date: 10/07/22 Status: Ordered Daliresp By Mouth, Daily, 0 [...] 11 Refills,Maintenance, 08/19/22 11:00:00 EDT, EC Tablet, [facility]/pharmacy #202, Partial fill upon patient request if the prescription is for a schedule II opioid drJina. Start Date: 08/19/22 Status: Ordered Digox 250 [...] capsule, 5 Refills, Maintenance, 07/30/22 11:39:00 EDT, [facility]/pharmacy #[id number], 165, cm, 04/17/22 13:32:00 EDT, Height, 60.6,kg, 04/18/22 8:40:00 EDT, Dry Weight Start Date: 07/30/22 Stop Date: 01/26/23 Status: Ordered duloxetine 30 mg oral enteric coated capsule 1 capsule = 30 mg, By Mouth, Daily, # 30 capsule, 11 Refills, Maintenance, 12/15/22 9:46:00 EST, Capsule, [facility]/pharmacy #2025, Partial fill upon patient request if the prescription is for a schedule II opioid drug., 165, cm, 10/09/22 11:32:00 EST, [facility]... Start Date: 12/15/22 Status: Ordered gabapentin 400 mg oral capsule 1, capsule, By Mouth, 3 times a day, # 90 capsule, Refills 11, Maintenance, 10/07/22 13:28:00 EST, Route to Pharmacy Electronically, [id number], 165, cm, 08/26/22 11:06:00 EST, Height, 64.7, [...] Refills, Maintenance, 10/15/22 9:58:00 EST, [facility], 165, cm, 10/09/22 11:32:00 EST, Height, 64.7, [...] schedule, # 168 each, 0 Refills, Acute 12/19/23 12:59:00 EST, 12/18/22 12:59:00 EST, Tablet, [facility] Start Date: 12/18/22 Stop Date: 12/19/23 Status: Ordered nystatin 883403 u/ml oral suspension 5 mL, By Mouth, 4 times a day, # 480 mL, 1 Refills, [facility], 165, cm, 03/28/22 11:14:00 EDT, Height, 60.4, [...] prescribed, # 224 tablet, 0 Refills, Acute 12/19/23 13:00:00 EST, 12/18/22 13:00:00 EST, Tablet, [facility], refill... Start Date: 12/18/22 Stop Date: 12/19/23 Status: Ordered pantoprazole 40 mg oral delayed [...] 05/08/23 16:01:00EDT, 05/08/22 16:00:00 EDT, Cream, [facility], Partial fill upon patient request [...] 10 J44.9, PLEASE BILL THROUGH MED B [id number], 165, cm, 06/05/21 10:01:00 EDT, Height, 61.4, kg, 03/15/... Start Date: 08/12/21 Status: Ordered ZyrTEC 10 mg oral tablet 1 tablet = 10 mg, By Mouth, Daily, PRN Sinus Symptoms, # 30 tablet, 11 Refills, Maintenance, 01/20/22 15:23:00 EDT, Tablet, [facility], 165, cm, 12/23/21 9:22:00 EST, Height, [...] Care Team Personnel Name: Joelle Castillo Position: [facility] Onco RN Member Role: Primary Care Nurse Name: Marilee Pitts RN Position: [facility] RN Member Role: Primary Care Nurse Name: Shawnee Schafer RN Position: [facility] SN RN Member Role: Primary Care Nurse Name: Declan Muller MD Position: [facility] Primary Care Physician Member Role: PCP Address: Address: [address] [place] [address] Adult [facility] Pediatric Medicine [address] Name: Aylin Byrne RN Position: [facility] RN Member Role: Primary Care Nurse Name: Blaire Wilde RN Position: [facility] RN Supv Member Role: Primary Care Nurse Name: Edilma Metzger RN Position: S RN Member Role: Primary Care Nurse Name: Katherine Bond RN Position: [facility] SN RN Member Role: Primary Care Nurse Name: Kerry Negron RN Position: S RN Member Role: Primary Care Nurse Name: Missy Avilez RN Position: [facility] Onco RN Member Role: Primary Care Nurse Name: Katina Marcus RN Position: [facility] RN Member Role: Primary Care Nurse Name: Sienna Horne RN Position: S RN Member Role: Primary Care Nurse Name: Ernestine Thomas RN Position: [facility] RN Member Role: Primary Care Nurse Care Team Related Persons Name: JANICE TAYLOR Address: [address] [address]
--- OUTSIDE RECORDS SUMMARY | 2024-05-04 13:21 | XMS_ITS | Continuity of Care Document ---
Author Organization [facility] Address [address] [place] [address]- Care Team Providers Care Bit Tripoler Name Role Phone Declan Muller MD Primary Care Physician Encounter [facility] Date(s): 01/21/23 - 05/24/23 [facility] [address] [place], [place] [address] Attending Physician: Declan Muller MD Allergies, Adverse [...] Vaccine (oldterm) 13 08/19/08 Given 1Result Comment: [facility] [id number] 2Result Comment: [06/22/2018] given at [facility] 3Location History: [facility] 4Location History: [facility] 5Admin Note: done @ clinic 6Admin Note: given w/out incident/VIS given 7Result Comment: [id number] 8Result Comment: DONE AT [facility] 10Result Comment: [07/21/2014] given w/out incident 11Admin Note: [facility] INFO GIVEN TO PATIENT 12Result Comment: lot #[id number] 13Admin Note: [facility] albuterol 0.083% inhalation solution 3 mL = 2.5 mg, Inhalation, Every 6 hours, PRN for wheezing, # 360 mL, 8 Refills, Maintenance, 07/07/19 14:14:00 EDT, Solution, ICD 10 J44.9, PLEASE BILL THROUGH MED B [id number] Start Date: 07/07/19 Status: Ordered albuterol 90 mcg/inh inhalation aerosol 0 Refills, Maintenance Start Date: 04/30/20 Status: Ordered Ativan 1 mg oral tablet 1 tablet = 1 mg, By Mouth, 3 times a day, PRN for anxiety, # 84 each, 0 Refills, Acute 04/20/24 10:25:00 EDT, 04/20/23 10:25:00 EDT, Tablet, [facility], 165, cm, 04/17/23 11:00:00 EDT, Height, 54.7, kg, 03/20/23 8:33:00 EDT, Dry Weight Start Date: 04/20/23 Stop Date: 04/20/24 Status: Ordered Brovana 15 mcg/2 mL inhalation [...] 11:34:00 EDT, Suspension, Route to Pharmacy Electronically, [id number], [facility]/pharmacy #5,... Start Date: 03/06/20 Status: Ordered calcium-vitamin D 600 mg-400 intl units oral tablet 1 tablet, By Mouth, 2 times a day, # 180 tablet, 1 Refills, Maintenance, 10/07/22 11:54:00 EST, [facility], 90, TAKE 1 TABLET BY MOUTH TWICE [...] capsule, 11 Refills, Maintenance, 03/03/23 10:03:00 EDT, [facility]/pharmacy #202, 165, cm, 01/21/23 10:40:00 EDT, Height, 55.8, kg, 01/23/23 8:24:00 EDT, Dry Weight Start Date: 03/03/23 Stop Date: 02/26/24 Status: Ordered duloxetine 30 mg oral enteric coated capsule 1 capsule = 30 mg, By Mouth, Daily, # 30 capsule, 11 Refills, Maintenance, 12/15/22 9:46:00 EST, [facility] upon patient request if the prescription is for a schedule II opioid drug., 165, cm, 10/09/22 11:32:00 EST, Heig... Start Date: 12/15/22 Status: Ordered gabapentin 400 mg oral capsule 1, capsule, By Mouth, 3 times a day, # 90 capsule, Refills 11, Maintenance, 10/07/22 13:28:00 EST, Route to Pharmacy Electronically, [id number], 165, cm, 08/26/22 11:06:00 EST, Height, 64.7, [...] Refills, Maintenance, 10/15/22 9:58:00 EST, [facility], 165, cm, 10/09/22 11:32:00 EST, Height, 64.7, [...] schedule, # 168 each, 0 Refills, Acute 04/20/24 10:25:00 EDT, 04/20/23 10:25:00 EDT, Tablet, [facility] Start Date: 04/20/23 Stop Date: 04/20/24 Status: Ordered nystatin 827175 u/ml oral suspension 5 mL, By Mouth, 4 times a day, # 480 mL, 1 Refills, [facility], 165, cm, 03/28/22 11:14:00 EDT, Height, 60.4, [...] 10 J44.9, PLEASE BILL THROUGH MED B [id number], 165, cm, 06/05/21 10:01:00 EDT, Height, 61.4, [...] Care Team Personnel Name: Joelle Castillo Position: [facility] Onco RN Member Role: Primary Care Nurse Name: Marilee Pitts RN Position: [facility] RN Member Role: Primary Care Nurse Name: Shawnee Schafer RN Position: [facility] SN RN Member Role: Primary Care Nurse Name: Declan Muller MD Position: [facility] Physician - Primary Care Member Role: PCP Address: Address: [address] [place] [address] Adult & Pediatric [address] Name: Aylin Byrne RN Position: [facility] RN Member Role: Primary Care Nurse Name: Blaire Wilde RN Position: [facility] RN Chaya Member Role: Primary Care Nurse Name: Edilma Metzger RN Position: [facility] RN Member Role: Primary Care Nurse Name: Katherine Bond RN Position: [facility] SN RN Member Role: Primary Care Nurse Name: Kerry Negron RN Position: [facility] RN Member Role: Primary Care Nurse Name: Missy Avilez RN Position: [facility] Onco RN Member Role: Primary Care Nurse Name: Katina Marcus RN Position: [facility] RN Member Role: Primary Care Nurse Name: Sienna Horne RN Position: [facility] RN Member Role: Primary Care Nurse Name: Ernestine Thomas RN Position: S RN Member Role: Primary Care Nurse Care Team Related Persons Name: JANICE TAYLOR Address: [address] [address]
--- OUTSIDE RECORDS SUMMARY | 2024-05-04 13:21 | XMS_ITS | Continuity of Care Document ---
Author Organization [facility] Address [address] [place] [address]- Care Team Providers Care Staff Research Scientist Name Role Phone Declan Muller MD Primary Care Physician Encounter [facility] Date(s): 04/06/24 - 04/13/24 [facility] [address] [place], [place] [address] Encounter Diagnosis Functional bowel disorder(Discharge Diagnosis) - 04/06/24 Immunodeficiency disorder, hypogammaglobulinemia(Discharge Diagnosis) - 04/06/24 Attending Physician: Declan Muller MD Allergies, Adverse [...] (oldterm) 13 08/19/08 Given 1Result Comment: [facility] [id number] 2Result Comment: [06/22/2018] given at [facility] 3Location History: [facility] 4Location History: [facility] 5Admin Note: done @ clinic 6Admin Note: given w/out incident/VIS given 7Result Comment: [id number] 8Result Comment: DONE AT [facility] 9Location History: [facility] 10Result Comment: [07/21/2014] given w/out incident 11Admin Note: [facility] INFO GIVEN TO PATIENT 12Result Comment: lot #[id number] 13Admin Note: [facility] albuterol 0.083% inhalation solution 3 mL = 2.5 mg, Inhalation, Every 6 hours, PRN for wheezing, # 360 mL, 8 Refills, Maintenance, 07/07/19 14:14:00 EDT, Solution, ICD 10 J44.9, PLEASE BILL THROUGH MED B [id number] Start Date: 07/07/19 Status: Ordered albuterol 90 mcg/inh inhalation aerosol 0 Refills, Maintenance Start Date: 04/30/20 Status: Ordered Brovana 15 mcg/2 mL inhalation solution 1 each, Neb, 2 times a day, not to exceed 2 doses/day do not swallow, # 60 each, 1 Refills, Maintenance, 04/24/20 16:53:00 EDT, Solution, [facility]/pharmacy #2024, ICD Code J44.9, 165, cm, 03/12/20 8:39:00EDT, Height, 70.7, kg, 03/08/20 16:16:00 EDT, Dry... Start Date: 04/24/20 Status: Ordered budesonide 0.25 mg/2 mL inhalation suspension 0.25 mg, 2, mL, Neb, 2 times a day, for COPD J44.9. rinse mouth after use, # 120 mL, Refills 6, Tot. Refills 6, Maintenance, 03/06/20 11:34:00 EDT, Suspension, Route to Pharmacy Electronically, [id number], [facility]/pharmacy #2024,... Start Date: 03/06/20 Status: Ordered calcium-vitamin D 600 mg-400 intl units oral tablet 1 tablet, By Mouth, 2 times a day, # 180 tablet, 1 Refills, Maintenance, 10/07/22 11:54:00 EST, [id number], 90, TAKE 1 TABLET BY MOUTH TWICE A DAY, 165, cm, 08/26/22 11:06:00 EST, Height, 64.7, kg, 10/03/22 8:14:00 EST, Dry Weight Start Date: 10/07/22 Status: Ordered cetirizine 10 mg oral tablet 1 tablet, By Mouth, Daily, PRN NEEDED FOR SINUS SYMPTOMS, # 90 tablet, 1 Refills, Maintenance, 12/09/23 1:28:00 EST, [facility]/pharmacy #2024, 165, cm, 09/30/23 10:35:00 EST, Height, 53.7, kg, 11/27/23 8:47:00 EST, Dry Weight Start Date: 12/09/23 Status: Ordered cyclobenzaprine 10 mg oral tablet 1/2 OR 1 TABLET, By Mouth, 2 times a day, PRN, # 60 tablet, Refills 5, Tot. Refills 5, Maintenance, NEEDED FOR MUSCLE PAIN OR SPASM, 01/13/24 12:46:00 EDT, Route to Pharmacy Electronically, [facility]/pharmacy #2024, 165, cm, 12/30/23 11:12:00 EDT, [...] capsule, 1 Refills, Maintenance, 02/29/24 11:02:00 EDT, [facility]/pharmacy #2024, 165, cm, 12/30/23 11:12:00 EDT, Height, 51.1,kg, 02/19/24 8:56:00 EDT, Dry Weight Start Date: 02/29/24 Stop Date: 02/23/25 Status: Ordered duloxetine 30 mg oral enteric coated capsule 1 capsule = 30 mg, By Mouth, Daily, # 30 capsule, 11 Refills, Maintenance, 09/14/23 16:34:00 EST, Capsule, [facility]/pharmacy #2024, Partial fill upon patient request if the prescription is for a schedule II opioid drug., 165, cm, 09/04/23 8:51:00 EST, [place]... Start Date: 09/14/23 Status: Ordered fluocinonide 0.05% topical cream 1 application, Topically, 2 times a day, PRN skin rash, # 60 Gm, 3 Refills, Acute 12/29/24 11:27:00EDT, 12/30/23 11:27:00 EDT, Cream, [facility]/pharmacy #2024, Partial fill upon patient request [...] Refills, Maintenance, 01/08/24 12:43:00 EDT, Tablet, [facility], Partial fill upon patient request if the prescription is for a schedule II opioid drug., 165,... Start Date: 01/08/24 Status: Ordered methadone 10 mg oral tablet See Instructions, PRN for pain, 1 tablet By Mouth twice daily, # 56 each, 0 Refills, Maintenance, 03/28/24 14:34:00 EDT, Tablet, [facility]/pharmacy #2024, refill when due, 165, cm, 12/30/23 11:12:00 [...] drug. Start Date: 12/30/23 Status: Ordered nystatin 405259 u/ml oral suspension 5 mL, By Mouth, 4 times a day, # 480 mL, 1 Refills, Physician Stop 09/30/24 11:03:00 EST, 09/30/23 11:02:00 EST, [facility]/pharmacy #2024, 165, cm, 09/30/23 10:35:00 EST, Height, 55, kg, 09/30/23 10:35:00 EST, Dry Weight Start Date: 09/30/23 Stop Date: 09/30/24 Status: Ordered ondansetron 4 mg oral tablet, disintegrating 1 tablet = 4 mg, By Mouth, Every 6 hours, PRN Nausea & Vomiting, # 20 each, 1 Refills, Acute 12/28/24 12:00:00 EDT, 12/29/23 12:52:00 EDT, Tablet, [facility]/pharmacy #2024, Partial fill upon patient request if the prescription is for a schedule II opioid Start Date: 12/29/23 Stop Date: 12/28/24 Status: [...] opioid drug. Start Date: 03/06/22 Status: Ordered valACYclovir 500 mg oral tablet 1, tablet, By Mouth, 2 times a day, PRN, # 180 tablet, Refills 3, Maintenance, NEEDED FOR SKIN SYMPTOMS, 04/12/24 16:50:00 EDT, Route to Pharmacy Electronically, [id number], 165, cm, 04/06/2411:18:00 EDT, Height, 49.7, kg, 04/06/24 11:18:00 E... Start Date: 04/12/24 Status: Ordered Ventolin HFA 108 mcg/inh inhalation [...] 10 J44.9, PLEASE BILL THROUGH MED B [id number], 165, cm, 06/05/21 10:01:00 EDT, Height, 61.4, [...] liver Confirmed Active Umbilical herniorrhaphy Confirmed Active Underweight Confirmed Active Diagnosis Diagnosis Type Effective Dates Health Status Clinical Service Informant Functional bowel disorder Discharge Diagnosis 04/06/24 Immunodeficiency disorder, hypogammaglobulinemia Discharge Diagnosis 04/06/24 Vital Signs Most recent to oldest [Reference Range]: 1 Height 165 cm (04/06/24 11:18 AM) Weight 49.7 kg (04/06/24 11:18 AM) Oxygen Saturation [94-100 %] 100 % (04/06/24 11:18 AM) Pulse Rate [55-90 bpm] 54 bpm *L* (04/06/24 11:18 AM) Body Mass Index [18.5-24.99 kg/m2] 18.26 kg/m2 *L* (04/06/24 11:18 AM) Blood Pressure [90-138/55-84 mm Hg] 113/ 74mm Hg (04/06/24 11:18 AM) Mode of Delivery (Oxygen) Room air (04/06/24 11:18 AM) Dry Weight 49.7 kg (04/06/24 11:18 AM) Weight Obtained Via Standing scale (04/06/24 11:18 AM) Dry Weight Obtained Via Standing scale (04/06/24 11:18 AM) Social History Social History Type Response [...] Date:10/02/23 End Date: Status:Done Progression:Met Note * Josefa Ba: PERFORM Event Display: Patient Education/Instruction Authored Date: [id number] Ambulatory Adult Visit Summary [facility] [address] [place] [address] Name: KARYN TAYLOR : 1960?? Visit: 04/06/2024 11:11?? Ambulatory Visit Instructions ?? Your Care Team Primary Care Provider Declan Muller MD? This Visit Provider Declan Muller MD Your Diagnosis CHF with cardiomyopathy Chronic obstructive lung disease Chronic pain syndrome Fatty liver GERD - Gastro-esophageal reflux disease Hyperglycemia Hypertension Lumbar radiculopathy Underweight Vitals Signs Pulse Rate:??54 bpm??Low Height: 165 cm Systolic Blood Pressure: 113 mm Hg Weight: 49.7 kg Diastolic Blood Pressure: 74 mm Hg Body Mass Index:??18.26 kg/m2??Low Oxygen Saturation: 100 % Body surface area: 1.51 What to do next Instructions From Your Provider continue current medication, supplements, balanced diet with protein supplement, and cautious activity; neurosurgery and general surgery follow up as scheduled; meloxicam or ibuprofen as needed for back pain; check lab today, try stretching lower legs; call if any question or problem Future Orders Basic Metabolic Panel - Once, *Est. 03/18/23 every 1 months (+/- 7 days) for 12 months, Single or Recurring Future Order?? B Type Natriuretic Peptide (NT ProBNP) - Once, *Est. 03/18/23 every 1 months (+/- 7 days) for 12 months, Single or Recurring Future Order?? Digoxin Level - Once, *Est. 03/18/23 every 1 months (+/- 7 days) for 12 months, Single or RecurringFuture Order?? CBC w/ Differential - Routine, Once, 04/06/24 11:46:00 EDT, Future Order, [facility], Blood?? Comprehensive Metabolic Panel - Routine, Once, 04/06/24 11:46:00 EDT, Future Order, [facility], Blood?? TSH - Routine, Once, 04/06/24 11:46:00 EDT, Future Order, [facility], Blood?? Hemoglobin A1C (Monitoring) (Hgb A1C (Monitoring)) - Routine, Once, 04/06/24 11:46:00 EDT, Future Order, [facility], Blood?? Magnesium Level - Routine, Once, 04/06/24 11:46:00 EDT, Future Order, [facility], Blood?? Medications The list below reflects the information in our records and provided by you today along with any changes made during this visit. Please continue your medications until treatment is completed or stopped by your provider. If this is different from the information you have or there are other questions,please contact the prescribing provider. What How Much When Why Instructions Unchanged Albuterol (albuterol 0.083% inhalation solution) 3 Milliliter Inhalation Every 6 hours as needed for for wheezing Unchanged Albuterol (albuterol 90 mcg/ inh inhalation aerosol) Unchanged Albuterol (Ventolin HFA 108 mcg/ inh inhalation aerosol with adapter) 2 puff(s) Inhalation 4 times a day as needed for for wheezing Unchanged arformoterol (Brovana 15 mcg/ 2 mL inhalation solution) 1 Each Nebulized inhalation Twice a day not to exceed 2 doses/ day do not swallow ?? Unchanged Budesonide (budesonide 0.25 mg/ 2 mL inhalation suspension) 2 Milliliter Nebulized inhalation Twice a day History of COPD Emphysema/COPD for COPD J44.9. rinse mouth after use ?? Unchanged Calcium And Vitamin D Combination (calcium-vitamin D 600 mg-400 intl units oral tablet) 1 tab(s) Oral Twice a day Unchanged Cetirizine (cetirizine 10 mg oral tablet) 1 tab(s) Oral Daily as needed for NEEDED FOR SINUS SYMPTOMS Unchanged Cyclobenzaprine (cyclobenzaprine 10 mg oral tablet) 1/2 OR 1 TABLET Oral Twice a day as needed for NEEDED FOR MUSCLE PAIN OR SPASM Unchanged Docusate (docusate sodium 100 mg oral capsule) 2 capsule Oral Twice a day as needed for NEEDED FOR CONSTIPATION FOR Unchanged Duloxetine (duloxetine 30 mg oral enteric coated capsule) 1 capsule Oral Daily Unchanged Fluocinonide Topical (fluocinonide 0.05% topical cream) 1 fransisca Topically Twice a day as needed for skin rash Unchanged Lisinopril (lisinopril 40 mg oral tablet) 1 tab(s) Oral Daily Unchanged Melatonin (melatonin 5 mg oral tablet) See instructions 1-2 tablet By Mouth Daily at bedtime, As needed for for insomnia ?? Unchanged Meloxicam (meloxicam 15 mg oral tablet) 1 tab(s) Oral Daily with food as needed for back pain ?? Unchanged Methadone (methadone 10 mg oral tablet) See instructions 1 tablet By Mouth twice daily, As needed for for pain ?? Unchanged Metoprolol (metoprolol 100 mg oral tablet, extended release) 1 tab(s) Oral Daily Unchanged Nystatin (nystatin 584487 u/ ml oral suspension) 5 Milliliter Oral 4 times a day Unchanged Ondansetron (ondansetron 4 mg oral tablet, disintegrating) 1 tab(s) Oral Every 6 hours as needed for Nausea & Vomiting Unchanged Pantoprazole (pantoprazole 40 mg oral delayed release tablet) 1 tab(s) Oral Daily as needed for NEEDED FOR STOMACH PAIN Unchanged revefenacin (Yupelri 175 mcg/ 3 mL inhalation solution) 175 Microgram Inhalation Daily j44.9 ?? please bill through med B ?? Unchanged roflumilast (Daliresp) Oral Daily Unchanged Testosterone (testosterone 2% transdermal cream) Unchanged ValACYclovir (Valtrex 500 mg oral tablet) 1 tab(s) Oral Twice a day as needed for skin symptoms ?? What How Much When Comments Stop Taking Lorazepam (Ativan 1 mg oral tablet) 1 tab(s) Oral 3 times a day as needed for for anxiety Test Performed Below is a partial list of the tests performed during your Visit. You may have had other tests and procedures not included in this list. Please discuss all test results with your provider. CBC w/ Differential?-- Results Pending -- Comprehensive Metabolic Panel?-- Results Pending -- Hgb A1C (Monitoring)?-- Results Pending -- Magnesium Level?-- Results Pending -- TSH?-- Results Pending -- You will be contacted within 72 hours with your results. Medications and Immunizations Administered Medications Given During Visit No medications given during this visit.?? Allergies (NKA means No Known Allergies) Augmentin??(gi upset) Bactrim DS??(lightheaded and loopy ) Levaquin??(tendon pains) Common Emergency Awareness Tips IS IT A STROKE? Act FAST and Check for these signs: FACE Does the face look uneven? ARM Does one arm drift down? SPEECH Does their speech sound strange? TIME Call at any sign of stroke ?? Heart Attack Signs Chest discomfort: Most heart attacks involve discomfort in the center of the chest and lasts more than a few minutes, or goes away and comes back. It can feel like uncomfortable pressure, squeezing, fullness or pain. Discomfort in upper body: Symptoms can include pain or discomfort in one or both arms, back, neck, jaw or stomach. Shortness of breath: With or without discomfort. Other signs: Breaking out in a cold sweat, nausea, or lightheaded. Remember, MINUTES DO MATTER. If you experience any of these heart attack warning signs, call to get immediate medical attention! ?? Smoking can increase your chances of developing chronic health problems and can cause harmful effects to other family members in your house. If you smoke, you are strongly encouraged to quit. Please call [facility] Link at [phone] or [phone] ([phone]) or log in to [email or web address] for referrals to smoking cessation programs. ?? The National Suicide Prevention Hotline is available 11/05 if you or someone you know needs to find a reason to keep living. By calling 0-033-521-YepLike! (8593) you'll be connected to a skilled, trained counselor at a crisis center in your area. [facility] You can view and manage your care through the patient portal or by using a health care fransisca of your choosing. [employer] is a website that allows you to securely view your medical information including your hospital discharge summary, office visit summaries, medications and follow-up visits. You can also request appointments, renew medications, and request access to your medical information using a health care fransisca of your choosing, or just ask a question. You can enroll at [email or web address] or register during your next office visit. [facility], in keeping with [facility] guidance, no longer requires face masks for staff, patientsor visitors in most situations. Similiar to time spent indoors at other locations, there is the chance that you were exposed to repiratory viruses during your time with us (such as flu or COVID-19). If you develop symptoms concerning for a viral respiratory infection, please seek testing (and treatment if indicated) from your medical provider or home test kit. ?? Disclaimer: The information provided is of a general nature and is intended to be used in conjunction with the recommendations and advice of your health care practitioner. Every effort has been made to ensure that the information provided is accurate and complete at the time it is provided to you however, as your needs change, or, as new information becomes available, different or additional instructions may be required. ?? If you have questions, please consult with your primary care provider or pharmacist, as appropriate. This information is not intended to serve as substitution for assessment and evaluation by a qualified health care provider. If you do not have a primary care provider, you may find a [facility] provider by calling [facility] Link at [phone]. Patient Care team information Care Team Personnel Name: Joelle Castillo Position: [facility] Onco RN Member Role: Primary Care Nurse Name: Shawnee Schafer RN Position: [facility] SN RN Member Role: Primary Care Nurse Name: Declan Muller MD Position: [facility] Physician - Primary Care Member Role: PCP Address: Address: [address] [place] [address] Adult & Pediatric Medicine [address] Name: Aylin Byrne RN Position: [facility] RN Member Role: Primary Care Nurse Name: Edilma Metzger RN Position: [facility] RN Member Role: Primary Care Nurse Name: Katherine Bond RN Position: [facility] SN RN Member Role: Primary Care Nurse Name: Gena Chavez RN Position: [facility] strategic solutions consultant Member Role: Actuarial Internship Name: Kerry Negron RN Position: [facility] RN Member Role: Primary Care Nurse Name: Joslyn Dodge RN Position: [facility] AMB Nurse Member Role: Primary Care Nurse Name: Missy Avilez RN Position: [facility] Onco RN Member Role: Primary Care Nurse Name: Katina Marcus RN Position: [facility] RN Member Role: Primary Care Nurse Name: Sienna Horne RN Position: [facility] RN Member Role: Primary Care Nurse Name: Ernestine Thomas RN Position: [facility] RN Member Role: Primary Care Nurse Care Team Related Persons Name: JANICE TAYLOR Address: [address] [address]
--- OUTSIDE RECORDS SUMMARY | 2024-05-04 13:21 | XMS_ITS | Continuity of Care Document ---
Author Organization [facility] Address [address] [address]- Care Team Providers Care Station Baggage Agent Name Role Phone Declan Muller MD Primary Care Physician [phone] Encounter [facility] [place] Date(s): 03/07/21 - 03/14/21 [facility] [address] [address]- Attending Physician: Vi Cummings Admitting Physician: Vi [...] Note: given w/out incident/VIS given 7Result Comment: [id number] [facility] 9Result Comment: [07/21/2014] given w/out incident 10Admin Note: [facility] INFO GIVEN TO PATIENT 11Result Comment: lot #[id number] 12Admin Note: [facility] albuterol 0.083% inhalation solution 3 mL = 2.5 mg, Inhalation, Every 6 hours, PRN for wheezing, # 360 mL, 8 Refills, Maintenance, 07/07/19 14:14:00 EDT, Solution, ICD 10 J44.9, PLEASE BILL THROUGH MED B [id number] Start Date: 07/07/19 Status: Ordered alendronate 70 mg oral tablet 1 tablet = 70 mg, By Mouth, Every week, # 4 tablet, 0 Refills, Maintenance, 04/02/20 11:08:00 EDT, Tablet Start Date: 04/02/20 Status: Ordered Ativan 1 mg oral tablet 1 tablet = 1 mg, By Mouth, 3 times a day, PRN for anxiety, # 84 each, 0 Refills, Acute 03/25/21 17:00:00 EDT, 02/22/21 8:35:00 EDT, [facility], [facility], 165, cm, 12/20/20 10:40:00 EST, Height,66.7, kg, 01/18/21 9:32:00 EDT, Dry Weight Start Date: 02/22/21 Stop Date: 03/25/21 Status: Ordered Brovana 15 mcg/2 mL inhalation [...] 11:34:00 EDT, Suspension, Route to Pharmacy Electronically, [id number], [facility]/pharmacy #2024,... Start Date: 03/06/20 Status: Ordered calcium-vitamin D 600 mg-400 intl units oral tablet See Instructions, 1 tablet By Mouth twice daily, # 60 tablet, 11 Refills, Maintenance, 07/04/20 15:50:00 EDT, Tablet, [facility]/pharmacy #2024, 1 tablet By Mouth twice [...] 11/21/20 12:23:00 EST, Route to Pharmacy Electronically, [facility]/pharmacy #2024, 165, cm, 05/17/20 16:00:00 EDT, Height, 66.5,... Start Date: 11/21/20 Stop Date: 11/21/21 Status: Ordered docusate sodium 100 mg oral capsule 2 capsule, By Mouth, 2 times a day, PRN NEEDED FOR CONSTIPATION FOR, # 120 capsule, 11 Refills, Maintenance, 11/21/20 16:36:00 EST, [id number], 165, cm, 05/17/20 16:00:00 EDT, Height, 66.5, [...] 01/30/21 11:23:00 EDT, Route to Pharmacy Electronically, [facility], 165, cm, 12/20/20 10:40:00 EST, Height, 66.7, [...] schedule, # 168 each, 0 Refills, Acute 03/25/21 17:00:00 EDT, 02/22/21 8:35:00 EDT, Tablet, [facility]/pharmacy #202... Start Date: 02/22/21 Stop Date: 03/25/21 Status: Ordered naproxen 500 mg oral tablet 1 tablet = 500 mg, By Mouth, 2 times a day, PRN joint or muscle pain, # 60 tablet, 11 Refills, Acute 06/11/21 11:08:00 EDT, 06/11/20 11:08:00 EDT, Tablet, [facility]/pharmacy #2025, 165, cm, 05/17/20 16:00:00 EDT, Height, 67, kg, 05/01/20 10:40:00 EDT, Dry W... Start Date: 06/11/20 Stop Date: 06/11/21 Status: Ordered oxyCODONE 10 mg oral tablet 2 tablet = 20 mg, By Mouth, Every 4 hours, PRN as needed for pain, 28 day prescription patient may fill for less than quantity prescribed, # 224 tablet, 0 Refills, Acute 03/25/21 17:00:00 EDT, 02/22/21 8:35:00 EDT, Tablet, [facility]/pharmacy #2025, refill... Start Date: 02/22/21 Stop Date: 03/25/21 Status: Ordered pantoprazole 40 mg oral delayed [...] tablet, 3 Refills, Maintenance, 07/04/20 15:51:00 EDT, [facility]/pharmacy #2025, 165, cm, 05/17/20 16:00:00 EDT, Height, 67, kg, 05/01/20 10:40:00 EDT, Dry Weight Start Date: 07/04/20 Status: Ordered Senna 8.6 mg oral tablet 8.6 mg, 1, tablet, By Mouth, Daily, # 30 tablet, Refills 11, Tot. Refills 11, Maintenance, 03/02/2017:09:00 EDT, Route to Pharmacy Electronically, [facility]/pharmacy #2024 Tablet, 165, cm, 01/27/20 8:11:00 [...] 10 J44.9, PLEASE BILL THROUGH MED B [id number], 165, cm, 12/20/20 10:40:00 EST, Height, 66.7, [...]
--- OUTSIDE RECORDS SUMMARY | 2024-05-04 13:21 | XMS_ITS | Continuity of Care Document ---
Author Organization [facility] Address [address] [place] [address]- Care Team Providers Care Professional Services Specialist Name Role Phone Renzo GRAHAM, Declan Hou Primary Care Physician [facility] Date(s): 07/02/20 - 08/01/20 [facility] [address] [place] [address]- [facility] Allergies, Adverse Reactions, Alerts Substance Reaction Severity [...] Note: given w/out incident/VIS given 7Result Comment: [id number], [id number] [facility] 9Result Comment: [07/21/2014] given w/out incident 10Admin Note: [facility] INFO GIVEN TO PATIENT 11Result Comment: lot #[id number] 12Admin Note: [facility] albuterol 0.083% inhalation solution 3 mL = 2.5 mg, Inhalation, Every 6 hours, PRN for wheezing, # 360 mL, 8 Refills, Maintenance, 07/07/19 14:14:00 EDT, Solution, ICD 10 J44.9, PLEASE BILL THROUGH MED B [id number] Start Date: 07/07/19 Status: Ordered alendronate 70 [...] 11:34:00 EDT, Suspension, Route to Pharmacy Electronically, [id number], [facility]/pharmacy #2024,... Start Date: 03/06/20 Status: Ordered calcium-vitamin D 600 mg-400 intl units oral tablet See Instructions, 1 tablet By Mouth twice daily, # 60 tablet, 11 Refills, Maintenance, 07/04/20 15:50:00 EDT, Tablet, [facility]/pharmacy #2024, 1 tablet By Mouth twice [...] Replace Required Details, Route to Pharmacy Electronically, [facility]/pharmacy #2024... Start Date: 03/02/20 Status: Ordered doxycycline hyclate 100 mg oral capsule 1 capsule = 100 mg, By Mouth, 2 times a day, for 10 days, # 20 capsule, 0 Refills, Acute 08/09/20 17:01:00 EDT, 07/30/20 17:01:00 EDT, Capsule, [facility]/pharmacy #2024, 165, cm, 05/17/20 16:00:00 EDT, Height, 64.8, kg, 07/30/20 7:58:00 EDT, Dry Weight Start Date: 07/30/20 Stop Date: 08/09/20 Status: Ordered duloxetine 20 mg oral enteric coated capsule 1 capsule = 20 mg, By Mouth, Daily, 0 Refills, Maintenance, 04/02/20 9:18:00 EDT Start Date: 04/02/20 Status: Ordered gabapentin 400 mg oral capsule 400 mg, 1, capsule, By Mouth, 2 times a day, # 60 each, Refills 11, Tot. Refills 11, Maintenance, 02/22/20 10:31:00 EDT, Route to Pharmacy Electronically, [facility]/pharmacy #2024, 165, cm, 01/27/20 8:11:00 EDT, Height, 53.6, kg, 10/14/19 10:56:00 EST, Dry... Start Date: 02/22/20 Status: Ordered lactulose 10 gm/15 ml oral syrup 30 mL = 20 Gm, By Mouth, Daily, PRN as needed for constipation, for 30 days, # 1,000 mL, 2 Refills,Acute 08/15/20 16:25:00 EDT, 05/17/20 16:25:00 EDT, Syrup, [facility]/pharmacy #2024, 30 mL By Mouth Daily,x30 days,PRN:as [...] 08/13/20 17:00:00 EDT, 07/16/20 8:37:00 EDT, Tablet, [facility]/pharmacy #202... Start Date: 07/16/20 Stop Date: 08/13/20 Status: Ordered naproxen 500 mg oral tablet 1 tablet = 500 mg, By Mouth, 2 times a day, PRN joint or muscle pain, # 60 tablet, 11 Refills, Acute 06/11/21 11:08:00 EDT, 06/11/20 11:08:00 EDT, Tablet, [facility]/pharmacy #2024, 165, cm, 05/17/20 16:00:00 EDT, [...] 08/13/20 17:00:00 EDT, 07/16/20 8:37:00 EDT, Tablet, [facility]/pharmacy #2024, 165, cm... Start Date: 07/16/20 Stop Date: [...] Refills, Acute, 05/22/20 11:58:00 EDT, [id number], 165, cm, 05/17/20 16:00:00 EDT, Height, 67, kg, 05/01/20 10:40:00 EDT, Dry Weight Start Date: 05/22/20 Status: Ordered Readi-Cat 2 oral suspension See Instructions, As per recommendations of radiology 1 the evening before when the morning of procedure, # 2 pack/packet, 0 Refills, Maintenance, 05/17/20 16:25:00 EDT, [facility]/pharmacy #2024, As per recommendations of radiology [...] Maintenance, 03/02/2017:09:00 EDT, Route to Pharmacy Electronically, [facility]/pharmacy #2024 Tablet, 165, cm, 01/27/20 8:11:00 EDT, Height, 53.6, kg, 10/14/19 10:56:00 EST, Dry... Start Date: 03/02/20 Status: Ordered triamcinolone 0.1% topical cream 1 application, Topically, 3 times a day, PRN psoriasis rash, # 60 Gm, 5 Refills, Acute 01/01/21 10:47:00 EDT, 01/02/20 10:46:00 EDT, Cream, [facility]/pharmacy #202, 1 application Topically 3 times a day,PRN:psoriasis rash, 165, cm, 11/17/19 10:08:00 EST, H... Start Date: 01/02/20 Stop Date: 01/01/21 Status: Ordered Ventolin HFA 108 mcg/inh inhalation aerosol with adapter 2 puffs, Inhalation, 4 times a day, PRN for wheezing, # 18 Gm, 11 Refills, Maintenance, 01/13/20 11:40:00 EDT, Aerosol, [facility]/pharmacy #2024, 165, cm, 11/17/19 10:08:00 EST, Height, 53.6, kg, 10/14/19 10:56:00 EST, Dry Weight Start Date: 01/13/20 Status: Ordered Yupelri 175 mcg/3 mL inhalation solution = 175 mcg, Inhalation, Daily, j44.9, # 360 mL, 6 Refills, Maintenance, 03/06/20 11:37:00 EDT, [facility]/pharmacy #2024, ICD 10 J44.9, PLEASE BILL THROUGH MED B [id number], 165, cm, 01/27/20 8:11:00 EDT, Height, 53.6, kg, 10/14/19 10:56:00 EST, Dry Weight Start Date: 03/06/20 Status: Ordered Zithromax 250 mg oral tablet See Instructions, 1 tablet By Mouth Daily on thursday, thursday, and thursday, # 12 tablet, 11 Refills, Maintenance, 07/11/20 12:50:00 EDT, Tablet, [facility]/pharmacy #202, 165, cm, 05/17/20 16:00:00 EDT, Height, [...]
--- OUTSIDE RECORDS SUMMARY | 2024-05-04 13:21 | XMS_ITS | Continuity of Care Document ---
Author Organization [facility] Address [address] [place] [address]- Care Team Providers Care Small Wind Energy Installer Name Role Phone Declan Muller MD Primary Care Physician Encounter [facility] Date(s): 12/16/22 - 12/23/22 [facility] [address] [place], [place] [address] Encounter Diagnosis Pneumatosis intestinalis of large intestine(Discharge Diagnosis) - 12/16/22 Immunodeficiency disorder, hypogammaglobulinemia(Discharge Diagnosis) - 12/16/22 Lumbar radiculopathy(Discharge Diagnosis) - 12/16/22 Chronic prescription opiate use(Discharge Diagnosis) - 12/16/22 Attending Physician: Declan Muller MD Allergies, Adverse [...] (oldterm) 13 08/19/08 Given 1Result Comment: [facility] [id number] 2Result Comment: [06/22/2018] given at [facility] 3Location History: [facility] 4Location History: [facility] 5Admin Note: done @ clinic 6Admin Note: given w/out incident/VIS given 7Result Comment: [id number], [id number] 8Result Comment: DONE AT [facility] 9Location History: [facility] 10Result Comment: [07/21/2014] given w/out incident 11Admin Note: [facility] INFO GIVEN TO PATIENT 12Result Comment: lot #[id number] 13Admin Note: [facility] albuterol 0.083% inhalation solution 3 mL = 2.5 mg, Inhalation, Every 6 hours, PRN for wheezing, # 360 mL, 8 Refills, Maintenance, 07/07/19 14:14:00 EDT, Solution, ICD 10 J44.9, PLEASE BILL THROUGH MED B [id number] Start Date: 07/07/19 Status: Ordered albuterol 90 mcg/inh inhalation aerosol 0 Refills, Maintenance Start Date: 04/30/20 Status: Ordered Ativan 1 mg oral tablet 1 tablet = 1 mg, By Mouth, 3 times a day, PRN for anxiety, # 84 each, 0 Refills, Acute 12/19/23 12:59:00 EST, 12/18/22 12:59:00 EST, Tablet, [facility]/pharmacy #2025, 165, cm, 12/16/22 12:53:00 EST, Height, 64.7, kg, 10/03/22 8:14:00 EST, Dry Weight Start Date: 12/18/22 Stop Date: 12/19/23 Status: Ordered Brovana 15 mcg/2 mL inhalation solution 1 each, Neb, 2 times a day, not to exceed 2 doses/day do not swallow, # 60 each, 1 Refills, Maintenance, 04/24/20 16:53:00 EDT, Solution, [facility]/pharmacy #2024, ICD Code J44.9, 165, cm, 03/12/20 8:39:00EDT, Height, 70.7, kg, 03/08/20 16:16:00 EDT, Dry... Start Date: 04/24/20 Status: Ordered budesonide 0.25 mg/2 mL inhalation suspension 0.25 mg, 2, mL, Neb, 2 times a day, for COPD J44.9. rinse mouth after use, # 120 mL, Refills 6, Tot. Refills 6, Maintenance, 03/06/20 11:34:00 EDT, Suspension, Route to Pharmacy Electronically, [id number], [facility]/pharmacy #2024,... Start Date: 03/06/20 Status: Ordered calcium-vitamin D 600 mg-400 intl units oral tablet 1 tablet, By Mouth, 2 times a day, # 180 tablet, 1 Refills, Maintenance, 10/07/22 11:54:00 EST, [facility], 90, TAKE 1 TABLET BY MOUTH TWICE [...] 11 Refills,Maintenance, 08/19/22 11:00:00 EDT, EC Tablet, [facility]/pharmacy #2024, Partial fill upon [...] Refills, Maintenance, 12/15/22 9:46:00 EST, [facility], [facility], Partial fill upon patient request if the prescription is for a schedule II opioid drug., 165, cm, 10/09/22 11:32:00 EST, [place]... Start Date: 12/15/22 Status: Ordered gabapentin 400 mg oral capsule 1, capsule, By Mouth, 3 times a day, # 90 capsule, Refills 11, Maintenance, 10/07/22 13:28:00 EST, Route to Pharmacy Electronically, [facility], 165, cm, 08/26/22 11:06:00 EST, Height, 64.7, kg,10/03/22 8:14:00 EST, Dry Weight Start Date: 10/07/22 Status: Ordered Linzess 145 mcg oral capsule 1 capsule, By Mouth, Daily, # 90 capsule, 3 Refills, Maintenance, 10/15/22 9:58:00 EST, [facility], 165, cm, 10/09/22 11:32:00 EST, Height, 64.7, kg, 10/03/22 8:14:00 EST, Dry Weight Start Date: 10/15/22 Status: Ordered methadone 10 mg oral tablet See Instructions, PRN for pain, 2 tablets By Mouth in the morning, 1 tablet in the afternoon, and 3tablets by mouth in the evening 28 day schedule, # 168 each, 0 Refills, Acute 12/19/23 12:59:00 EST, 12/18/22 12:59:00 EST, [facility]t, [facility] Start Date: 12/18/22 Stop Date: 12/19/23 Status: Ordered nystatin 004765 u/ml oral suspension 5 mL, By Mouth, 4 times a day, # 480 mL, 1 Refills, [facility], 165, cm, 03/28/22 11:14:00 EDT, Height, 60.4, [...] 10 J44.9, PLEASE BILL THROUGH MED B [id number], 165, cm, 06/05/21 10:01:00 EDT, Height, 61.4, [...] Effective Dates Health Status Clinical Service Informant Pneumatosis intestinalis of large intestine Discharge Diagnosis 12/16/22 Immunodeficiency disorder, hypogammaglobulinemia Discharge Diagnosis 12/16/22 Lumbar radiculopathy Discharge Diagnosis 12/16/22 Chronic prescription opiate use Discharge Diagnosis 12/16/22 Vital Signs Most recent to oldest [Reference Range]: 1 2 Height 165 cm (12/16/22 12:53 PM) 165 cm (12/16/22 9:40 AM) Weight 59.09 kg (12/16/22 9:40 AM) Oxygen Saturation [94-100 %] 96 % (12/16/22 9:40 AM) Pulse Rate [55-90 bpm] 116 bpm *H* (12/16/22 9:40 AM) Body Mass Index [18.5-24.99 kg/m2] 21.7 kg/m2 (12/16/22 9:40 AM) Blood Pressure [90-138/55-84 mm Hg] 124/ 64mm Hg (12/16/22 9:40 AM) Mode of Delivery (Oxygen) Room air (12/16/22 9:40 AM) Blood pressure sites Arm, left (12/16/22 9:40 AM) Weight Obtained Via Standing scale (12/16/22 9:40 AM) Social History Social History Type Response Smoking Status Former smoker, quit more than 30 days ago; Other: quit 20 years ago; entered on: 09/24/19 Sex Note * Darlene Flores: PERFORM, SIGN, VERIFY Event Display: Patient Education/Instruction Authored Date: [id number] [facility] *[facility] Clinical Summary Name KARYN TAYLOR Age 62 Years 1960 PCP Renzo GRAHAM, Declan Hou PCP Visit Date 12/16/2022 09:20:00 Patient Instructions continue current medication, except cut entresto back to once daily in view of low blood pressure; check lab today; finish antibiotics, try to increase diet; keep cardiology and g.i. appointments as scheduled; call, or go back to e.r., if symptoms worsen or change; try cutting back by one oxycodonepill every two weeks; call if any question or problem Additional Instructions: Scheduled Appointments?? Future Appointments ?*[facility] ?[address]??[place],??[place],??[address] ?Phone:??--?Fax:??-- ?Appt. Date:??01/14/2023?10:40 AM ?Scheduled Provider:??Renzo GRAHAM, Declan Hou Follow-Up Instructions ?? Diagnosis Heart failure, unspecified; Chronic obstructive pulmonary disease, unspecified Medications: Please continue your medications until treatment is completed or stopped by your provider. Discuss any questions related to medications with your provider. Medications to Continue with No Changes These [...] do not swallow. Refills: 1. Next Dose: Azithromycin (Zithromax 250 mg oral tablet) 1 pack/packet Oral once. as directed on package labeling. Refills: 0. Next Dose: bacillus coagulans-inulin (Probiotic Formula (Bacillus [...] capsule Oral Daily. Refills: 11. Next Dose: Gabapentin (gabapentin 400 mg oral [...] pain. Refills: 0. Next Dose: Nystatin (nystatin 788981 u/ml oral suspension) 5 Milliliter Oral 4 times a day. Refills: 1. Next Dose: Ondansetron (ondansetron 4 mg oral tablet, disintegrating) 1 tab(s) Oral every 6 hours as needed Nausea & Vomiting. Refills: 1. Next Dose: Oxycodone (oxyCODONE 10 mg oral tablet) 2 tab(s) Oral every 4 hours as needed as needed for pain. 28 day prescription patient may fill for less than quantity prescribed. Refills: 0. Next Dose: Pantoprazole (pantoprazole 40 mg oral delayed release tablet) 1 tab(s) Oral Daily as needed NEEDED FOR STOMACH PAIN. Refills: 3. Next Dose: PredniSONE (predniSONE 10 mg oral tablet) 1-2 tablet By Mouth Daily as directed with food. Refills: 11. Next Dose: revefenacin (Yupelri 175 mcg/3 mL [...] This Visit Future Orders ?No future orders Vital Signs Height 165 cm Weight 59.09 kg BMI 21.7 kg/m2 Blood Pressure 124 mm Hg/64 mm Hg Temperature Pulse Rate 116 bpm Respiratory Rate 02 Sat Mode of Delivery 96 %/Room air You can now view a summary of your hospital visit from the comfort of your home through a free online portal called [employer]. [employer] is a website that allows you to securely view your medical information including discharge summary, medications and follow-up visits. ??You can alsosend a secure electronic message to your doctor???s office to request appointments, renew medications or just ask a question. You can enroll at [email or web address] or register during your next office [...] primary care provider, you may find a [facility] provider by calling [facility] [employer] [facility] at [phone]. For information about the plan of care [...] Care Nurse Name: Shawnee Schafer RN Position: [facility] SN RN Member Role: Primary Care Nurse Name: Declan Muller MD Position: [facility] Primary Care Physician Member Role: PCP Address: Address: [address] [place] [address] Adult & Pediatric Medicine [place], [place] [address] Name: Aylin Byrne RN Position: S RN Member Role: Primary Care Nurse Name: Blaire Wilde RN Position: [facility] RN Supv Member Role: Primary Care Nurse Name: Edilma Metzger RN Position: S RN Member Role: Primary Care Nurse Name: Katherine Bond RN Position: [facility] SN RN Member Role: Primary Care Nurse Name: Kerry Negron RN Position: S RN Member Role: Primary Care Nurse Name: Missy Avilez RN Position: [facility] Onco RN Member Role: Primary Care Nurse Name: Katina Marcus RN Position: S RN Member Role: Primary Care Nurse Name: Sienna Horne RN Position: S RN Member Role: Primary Care Nurse Name: Ernestine Thomas RN Position: S RN Member Role: Primary Care Nurse Care Team Related Persons Name: TAYLOR, JANICE Address: [address] [address]
--- OUTSIDE RECORDS SUMMARY | 2024-05-04 13:21 | XMS_ITS | Continuity of Care Document ---
Author Organization [facility] Address [address] [place] [address]- Care Team Providers Care Property Assistant Name Role Phone Declan Muller MD Primary Care Physician [phone] [facility]counter [facility] Date(s): 08/12/21 - 09/11/21 [facility] [address] [place] [address]- [place] Allergies, Adverse Reactions, Alerts Substance Reaction [...] Note: given w/out incident/VIS given 7Result Comment: [id number], [id number] [facility] 9Result Comment: [07/21/2014] given w/out incident 10Admin Note: [facility] INFO GIVEN TO PATIENT 11Result Comment: lot #[id number] 12Admin Note: [facility] albuterol 0.083% inhalation solution 3 mL = 2.5 mg, Inhalation, Every 6 hours, PRN for wheezing, # 360 mL, 8 Refills, Maintenance, 07/07/19 14:14:00 EDT, Solution, ICD 10 J44.9, PLEASE BILL THROUGH MED B [id number] Start Date: 07/07/19 Status: Ordered alendronate 70 [...] 11:34:00 EDT, Suspension, Route to Pharmacy Electronically, [id number], [facility]/pharmacy #2024,... Start Date: 03/06/20 Status: Ordered calcium-vitamin D 600 mg-400 intl units oral tablet See Instructions, 1 tablet By Mouth twice daily, # 60 tablet, 11 Refills, Maintenance, 07/04/20 15:50:00 EDT, Tablet, [facility]/pharmacy #2024, 1 tablet By Mouth twice daily, 165, cm, 05/17/20 16:00:00 EDT, Height, 67, kg, 05/01/20 10:40:00 EDT, Dry Weight Start Date: 07/04/20 Status: Ordered cyclobenzaprine 10 mg oral tablet 1, tablet, By Mouth, 2 times a day, PRN, # 60 each, Refills 5, Tot. Refills 5, Acute 11/21/21 12:24:00 EST, NEEDED FOR PAIN, 11/21/20 12:23:00 EST, Route to Pharmacy Electronically, [facility]/pharmacy #2024, 165, cm, 05/17/20 16:00:00 EDT, Height, 66.5,... Start Date: 11/21/20 Stop Date: 11/21/21 Status: Ordered docusate sodium 100 mg oral capsule 2 capsule, By Mouth, 2 times a day, PRN NEEDED FOR CONSTIPATION FOR, # 120 capsule, 11 Refills, Maintenance, 11/21/20 16:36:00 EST, [facility] [id number], 165, cm, 05/17/20 16:00:00 EDT, Height, 66.5, kg, 09/21/20 8:46:00 EST, Dry Weight Start Date: 11/21/20 Stop Date: 12/21/20 Status: Ordered duloxetine 20 mg oral enteric coated capsule 1 capsule = 20 mg, By Mouth, Daily, # 30 capsule, 11 Refills, Maintenance, 07/16/21 15:55:00 EDT, Capsule, [facility]/pharmacy #2024, Partial fill upon patient request if the prescription is for a schedule II opioid drug., 165, cm, 06/05/21 10:01:00 EDT, Hei... Start Date: 07/16/21 Status: Ordered gabapentin 400 mg oral capsule 1, capsule, By Mouth, 3 times a day, # 90 each, Refills 11, Tot. Refills 11, Maintenance, 09/09/21 11:35:00 EST, Route to Pharmacy Electronically, [facility]/pharmacy #2024, dose increase, refill when needed, [...] Maintenance, 01/13/20 11:40:00 EDT, Aerosol, [facility]/pharmacy #2024, 165, cm, 11/17/19 10:08:00 EST, Height, 53.6, kg, 10/14/19 10:56:00 EST, Dry Weight Start Date: 01/13/20 Status: Ordered Yupelri 175 mcg/3 mL inhalation solution = 175 mcg, Inhalation, Daily, j44.9 please bill through med B, # 90 mL, 2 Refills, Maintenance, 08/12/21 16:05:00 EDT, [facility], ICD 10 J44.9, PLEASE BILL THROUGH MED B [id number], 165, cm, 06/05/21 10:01:00 EDT, Height, 61.4, [...]
--- OUTSIDE RECORDS SUMMARY | 2024-05-04 13:21 | XMS_ITS | Continuity of Care Document ---
Author Organization [facility] Address [address] [place] [address]- Care Team Providers Care Digital Analyst Name Role Phone Renzo GRAHAM, Declan Hou Primary Care Physician [facility] Date[facility]s): 06/06/20 - 07/06/20 [facility] [address] [place] [address]- [facility] Allergies, Adverse Reactions, Alerts Substance [...] Note: given w/out incident/VIS given 7Result Comment: [id number], [id number] [facility] 9Result Comment: [07/21/2014] given w/out incident 10Admin Note: [facility] INFO GIVEN TO PATIENT 11Result Comment: lot #[id number] 12Admin Note: [facility] albuterol 0.083% inhalation solution 3 mL = 2.5 mg, Inhalation, Every 6 hours, PRN for wheezing, # 360 mL, 8 Refills, Maintenance, 07/07/19 14:14:00 EDT, Solution, ICD 10 J44.9, PLEASE BILL THROUGH MED B [id number] Start Date: 07/07/19 Status: Ordered alendronate 70 [...] 11:34:00 EDT, Suspension, Route to Pharmacy Electronically, [id number], [facility]/pharmacy #2024,... Start Date: 03/06/20 Status: Ordered calcium-vitamin D 600 mg-400 intl units oral tablet See Instructions, 1 tablet By Mouth twice daily, # 60 tablet, 11 Refills, Maintenance, 07/04/20 15:50:00 EDT, Tablet, [facility]/pharmacy #2024, 1 tablet By [...] Replace Required Details, Route to Pharmacy Electronically, [facility]/pharmacy #2024... Start Date: 03/02/20 Status: Ordered doxycycline hyclate 100 mg oral capsule 1 capsule = 100 mg, By Mouth, 2 times a day, for 10 days, # 20 capsule, 0 Refills, Acute 07/14/20 12:49:00 EDT, 07/04/20 12:49:00 EDT, Capsule, [facility]/pharmacy #2024, 165, cm, 05/17/20 16:00:00 EDT, Height, [...] 02/22/20 10:31:00 EDT, Route to Pharmacy Electronically, [facility]/pharmacy #2024, 165, cm, 01/27/20 8:11:00 EDT, Height, 53.6, kg, 10/14/19 10:56:00 EST, Dry... Start Date: 02/22/20 Status: Ordered lactulose 10 gm/15 ml oral syrup 30 mL = 20 Gm, By Mouth, Daily, PRN as needed for constipation, for 30 days, # 1,000 mL, 2 Refills,Acute 08/15/20 16:25:00 EDT, 05/17/20 16:25:00 EDT, Syrup, [facility]/pharmacy #2024, 30 mL By Mouth Daily,x30 days,PRN:as [...] 07/16/20 17:00:00 EDT, 06/18/20 8:51:00 EDT, Tablet, [facility]/pharmacy #202... Start Date: 06/18/20 Stop Date: 07/16/20 Status: Ordered naproxen 500 mg oral tablet 1 tablet = 500 mg, By Mouth, 2 times a day, PRN joint or muscle pain, # 60 tablet, 11 Refills, Acute 06/11/21 11:08:00 EDT, 06/11/20 11:08:00 EDT, Tablet, [facility]/pharmacy #2024, 165, cm, 05/17/20 16:00:00 EDT, Height, [...] 07/16/20 17:00:00 EDT, 06/18/20 8:51:00 EDT, Tablet, [facility]/pharmacy #2024, 165, cm... Start Date: 06/18/20 Stop [...] Refills, Acute, 05/22/20 11:58:00 EDT, [facility], 165, cm, 05/17/20 16:00:00 EDT, Height, 67, kg, 05/01/20 10:40:00 EDT, Dry Weight Start Date: 05/22/20 Status: Ordered Readi-Cat 2 oral suspension See Instructions, As per recommendations of radiology 1 the evening before when the morning of procedure, # 2 pack/packet, 0 Refills, Maintenance, 05/17/20 16:25:00 EDT, [facility]/pharmacy #2024, As per recommendations of radiology 1 [...] Maintenance, 03/02/2017:09:00 EDT, Route to Pharmacy Electronically, [facility]/pharmacy #2024 Tablet, 165, cm, 01/27/20 8:11:00 EDT, Height, 53.6, kg, 10/14/19 10:56:00 EST, Dry... Start Date: 03/02/20 Status: Ordered triamcinolone 0.1% topical cream 1 application, Topically, 3 times a day, PRN psoriasis rash, # 60 Gm, 5 Refills, Acute 01/01/21 10:47:00 EDT, 01/02/20 10:46:00 EDT, Cream, [facility]/pharmacy #202, 1 application Topically 3 times a day,PRN:psoriasis rash, 165, cm, 11/17/19 10:08:00 EST, H... Start Date: 01/02/20 Stop Date: 01/01/21 Status: Ordered Ventolin HFA 108 mcg/inh inhalation aerosol with adapter 2 puffs, Inhalation, 4 times a day, PRN for wheezing, # 18 Gm, 11 Refills, Maintenance, 01/13/20 11:40:00 EDT, Aerosol, [facility]/pharmacy #2024, 165, cm, 11/17/19 10:08:00 EST, Height, 53.6, kg, 10/14/19 10:56:00 EST, Dry Weight Start Date: 01/13/20 Status: Ordered Yupelri 175 mcg/3 mL inhalation solution = 175 mcg, Inhalation, Daily, j44.9, # 360 mL, 6 Refills, Maintenance, 03/06/20 11:37:00 EDT, [facility]/pharmacy #2024, ICD 10 J44.9, PLEASE BILL THROUGH MED B [id number], 165, cm, 01/27/20 8:11:00 EDT, Height, 53.6, [...]
--- OUTSIDE RECORDS SUMMARY | 2024-05-04 13:21 | XMS_ITS | Continuity of Care Document ---
Author Organization [facility] Address [address] [facility] 2nd Floor [address] [place] [address]- Care Team Providers Care Burglar Alarm Assembler Name Role Phone Declan Muller MD Primary Care Physician Encounter [facility] [place] Date(s): 09/14/20 - 10/31/20 [facility] [place] [address] [place] [address] [place] [address]- Attending Physician: Julio Sherwood MD Admitting Physician: Julio Sherwood MD Referring Physician: Declan Muller MD Allergies, [...] Note: given w/out incident/VIS given 7Result Comment: [id number], [id number] [facility] 9Result Comment: [07/21/2014] given w/out incident 10Admin Note: [facility] INFO GIVEN TO PATIENT 11Result Comment: lot #[id number] 12Admin Note: [facility] albuterol 0.083% inhalation solution 3 mL = 2.5 mg, Inhalation, Every 6 hours, PRN for wheezing, # 360 mL, 8 Refills, Maintenance, 07/07/19 14:14:00 EDT, Solution, ICD 10 J44.9, PLEASE BILL THROUGH MED B [id number] Start Date: 07/07/19 Status: Ordered alendronate 70 [...] 11:34:00 EDT, Suspension, Route to Pharmacy Electronically, [id number], [facility]/pharmacy #2024,... Start Date: 03/06/20 Status: Ordered calcium-vitamin D 600 mg-400 intl units oral tablet See Instructions, 1 tablet By Mouth twice daily, # 60 tablet, 11 Refills, Maintenance, 07/04/20 15:50:00 EDT, Tablet, [facility]/pharmacy #2024, 1 tablet By Mouth twice [...] PAIN,10/10/20 16:50:00 EST, Route to Pharmacy Electronically, [id number], 165, cm, 05/17/20 16:00:00 EDT, Height, 66.5, kg, 09/21/20 8:46:00 EST, Dry W... Start Date: 10/10/20 Status: Ordered docusate sodium 100 mg oral capsule See Instructions, PRN, 3 capsule By Mouth 2 times a day 30 days, # 180 each, Refills 11, Tot. Refills 11, Maintenance, for constipation, 03/02/20 17:08:00 EDT, Instructions Replace Required Details, Route to Pharmacy Electronically, [facility]/pharmacy #2025... Start Date: 03/02/20 Status: Ordered duloxetine 20 mg oral enteric coated capsule 1 capsule = 20 mg, By Mouth, Daily, 0 Refills, Maintenance, 04/02/20 9:18:00 EDT Start Date: 04/02/20 Status: Ordered gabapentin 400 mg oral capsule 400 mg, 1, capsule, By Mouth, 2 times a day, # 60 each, Refills 11, Tot. Refills 11, Maintenance, 02/22/20 10:31:00 EDT, Route to Pharmacy Electronically, [facility]/pharmacy #2024, 165, cm, 01/27/20 8:11:00 EDT, Height, 53.6, kg, 10/14/19 10:56:00 EST, Dry... Start Date: 02/22/20 Status: Ordered losartan 50 mg oral tablet 50 mg, 1, tablet, By Mouth, Daily, # 30 tablet, Refills 6, Tot. Refills 6, Maintenance, 10/05/20 10:44:00 EST, Route to Pharmacy Electronically, [facility]/pharmacy #202, Partial fill upon patient request [...] 17:00:00 EST, 10/08/20 8:27:00 EST, Tablet, [facility] Start Date: 10/08/20 Stop Date: 10/06/21 [...] Refills, Acute, 05/22/20 11:58:00 EDT, [id number], 165, cm, 05/17/20 16:00:00 EDT, Height, 67, [...] Maintenance, 03/02/2017:09:00 EDT, Route to Pharmacy Electronically, [facility]/pharmacy #2024 Tablet, 165, cm, 01/27/20 8:11:00 EDT, Height, 53.6, kg, 10/14/19 10:56:00 EST, Dry... Start Date: 03/02/20 Status: Ordered triamcinolone 0.1% topical cream 1 application, Topically, 3 times a day, PRN psoriasis rash, # 60 Gm, 5 Refills, Acute 01/01/21 10:47:00 EDT, 01/02/20 10:46:00 EDT, Cream, [facility]/pharmacy #2024, 1 application Topically 3 times a day,PRN:psoriasis rash, 165, cm, 11/17/19 10:08:00 EST, H... Start Date: 01/02/20 Stop Date: 01/01/21 Status: Ordered Ventolin HFA 108 mcg/inh inhalation aerosol with adapter 2 puffs, Inhalation, 4 times a day, PRN for wheezing, # 18 Gm, 11 Refills, Maintenance, 01/13/20 11:40:00 EDT, Aerosol, [facility]/pharmacy #2024, 165, cm, 11/17/19 10:08:00 EST, Height, 53.6, kg, 10/14/19 10:56:00 EST, Dry Weight Start Date: 01/13/20 Status: Ordered Yupelri 175 mcg/3 mL inhalation solution = 175 mcg, Inhalation, Daily, j44.9, # 360 mL, 6 Refills, Maintenance, 03/06/20 11:37:00 EDT, [facility]/pharmacy #202, ICD 10 J44.9, PLEASE BILL THROUGH MED B [id number], 165, cm, 01/27/20 8:11:00 EDT, Height, 53.6, [...]
--- OUTSIDE RECORDS SUMMARY | 2024-05-04 13:21 | XMS_ITS | Continuity of Care Document ---
Author Organization [facility] Address [address] [place] [address]- Care Team Providers Care Postpartum Nurse Name Role Phone Renzo GRAHAM, Declan Hou Primary Care Physician [phone] Encounter [facility] Date(s): 09/24/19 - 09/27/[address] [address]- [facility] Discharge Disposition: A-D/C Home Attending Physician: Liseth Young DO Admitting Physician: Rodri Morrell DO Referring Physician: Not on Staff, Referring MD Allergies, Adverse Reactions, Alerts Substance Reaction Severity Status Levaquin tendon pains Active Immunizations Given and Recorded Vaccine Date Status Refusal Reason influenza virus vaccine, inactivated 1 06/20/18 Re corded influenza virus vaccine, inactivated 2 07/17/16 Re corded influenza virus vaccine, inactivated 3 08/04/15 Re corded influenza virus vaccine, inactivated 4 07/13/14 Gi seferino influenza virus vaccine, inactivated 5 07/03/11 Gi seferino influenza virus vaccine, inactivated 6 12/02/09 Gi seferino pneumococcal 13-valent vaccine 7 09/06/15 Recorded tetanus-diphtheria toxoids (Td) 8 07/21/14 Given FluLaval (oldterm) 9 08/08/10 Given pneumococcal 23-valent vaccine 12/02/09 Given pneumococcal 23-valent vaccine 10 12/02/09 Given Influenza Vaccine (oldterm) 11 08/19/08 Given 1Result Comment: [06/22/2018[facility] 4Admin Note: done @ clinic 5Admin Note: given w/out incident/VIS given 6Result Comment: [id number], [id number] 7[facility] 8Result Comment: [07/21/2014] given w/out incident 9Admin Note: [facility] INFO GIVEN TO PATIENT 10Result Comment: lot #[id number] 11Admin Note: [facility] albuterol 0.083% inhalation solution 3 mL = 2.5 mg, Inhalation, Every 6 hours, PRN for wheezing, # 360 mL, 8 Refills, Maintenance, 07/07/19 14:14:00 EDT, Solution, ICD 10 J44.9, PLEASE BILL THROUGH MED B [id number] Start Date: 07/07/19 Status: Ordered amoxicillin-clavulanate 875 mg-125 mg oral tablet 1 tablet, By Mouth, 2 times a day, # 3 tablet, 0 Refills, Acute 09/28/19 22:00:00 EST, 09/27/19 21:00:00 EST, Tablet, 159, cm, 09/27/19 7:38:10 EST, Height, 48.2, kg, 09/24/19 18:32:11 EST, Dry Weight Start Date: 09/27/19 Stop Date: 09/28/19 Status: Ordered Ativan 1 mg oral tablet 1 tablet = 1 mg, By Mouth, 3 times a day, PRN for anxiety, # 84 each, 0 Refills, Acute 09/12/20 12:51:00 EST, 09/12/19 12:50:55 EST, Tablet Start Date: 09/12/19 Stop Date: 09/12/20 Status: Ordered bedside commode bedside commode, See [...] 19:25:03 EDT, Suspension, Route to Pharmacy Electronically, [id number], [facility]/pharmacy #2024 Start Date: 06/21/19 Status: Ordered [...] each, Refills 5, Tot. Refills 5, Acute 03/10/20 11:06:00 EDT, Pain , Severe, 03/10/19 11:05:32 EDT, Route to Pharmacy Electronically, [id number], [facility]/pharmacy #2024 Start Date: 03/10/19 Stop Date: 03/10/20 Status: Ordered DilTIAZem Hydrochloride CD 180 mg/24 [...] 09/12/19 14:25:32 EST, Route to Pharmacy Electronically, [id number], [facility]/pharmacy #2024 Start Date: 09/12/19 Stop Date: 09/06/20 Status: Ordered Durable Medical Equipment See Instructions, Maintenance, CPAP supplies all masks, tubing, filters, head gear, chin strap, water chamber, heated tubing, related supplies and accessories [id number] G47.33 G47.39 G47.33 G47.36DME Neftali Gibbs 02/21/18, 03/12/18 11:2... Start Date: 03/12/18 Status: Ordered gabapentin 400 mg oral capsule 400 mg, 1, capsule, By Mouth, 2 times a day, # 60 each, Refills 11, Tot. Refills 11, Maintenance, 01/14/19 14:50:28 EDT, Route to Pharmacy Electronically, [id number], [facility]/pharmacy #2024 Start Date: 01/14/19 Status: Ordered methadone 10 mg oral tablet See Instructions, PRN for pain, 2 tablets By Mouth in the morning, 1 tablet in the afternoon, and 3tablets by mouth in the evening 28 day schedule, # 168 each, 0 Refills, Acute 09/12/20 12:51:00 EST, 09/12/19 12:51:37 EST, Tablet Start Date: 09/12/19 Stop Date: 09/12/20 Status: Ordered naproxen 500 mg oral tablet [...] prescribed, # 224 tablet, 0 Refills, Acute 09/12/20 12:52:00 EST, 09/12/19 12:52:19 EST, Tablet Start Date: 09/12/19 Stop Date: 09/12/20 Status: Ordered pantoprazole 40 mg oral delayed release tablet 1 tablet = 40 mg, By Mouth, Daily, PRN stomach pain, # 30 tablet, 0 Refills, Maintenance, 09/24/18 14:10:16 EST, EC Tablet Start Date: 09/24/18 Status: Ordered predniSONE 10 mg oral tablet 1 tablet = 10 mg, By Mouth, Daily, 4 tablets on 07/29 3 tablets daily 07/30- 08/01 2 tablets daily 08/02-08/04 1 tablet daily 08/05-08/07, # 10 tablet, 0 Refills, Acute 10/08/19 9:00:00 EST, 09/27/19 9:46:25 EST, Tablet, 159, cm, 09/27/19 7:38:10 ES... Start Date: 09/27/19 Stop Date: 10/08/19 Status: Ordered predniSONE 5 mg oral tablet 1 tablet = 5 mg, By Mouth, Daily, take 1 tablet daily 08/08-08/10, # 3 tablet, 0 Refills, Maintenance, 10/08/19 9:48:00 EST, Tablet, 159, cm, 09/27/19 7:38:10 EST, Height, 48.2, kg, 09/24/19 18:32:11EST, Dry Weight Start Date: 10/08/19 Stop Date: 10/11/19 Status: Ordered Probiotic Formula oral capsule 1 capsule, By Mouth, Daily, # 30 capsule, 11 Refills, Maintenance, 05/22/14 13:23:49, 1 capsule By Mouth Daily Start Date: 05/22/14 Status: Ordered roflumilast 250 mcg oral tablet 1 tablet = 250 mcg, By Mouth, Daily, # 90 tablet, 3 Refills, Maintenance, 05/24/19 16:46:00 EDT Start Date: 05/24/19 Status: Ordered Senna 8.6 mg oral tablet 8.6 mg, 1, tablet, By Mouth, Daily, # 30 tablet, Refills 11, Tot. Refills 11, Maintenance, 08/11/1912:15:33 EDT, Route to Pharmacy Electronically, [id number], [facility]/pharmacy #2024 Tablet Start Date: 08/11/19 Status: [...] ICD 10 J44.9,PLEASE BILL THROUGH MED B [id number] Start Date: 07/07/19 Status: Ordered ZyrTEC 10 [...] sleep apnea syndrome(Confirmed) Active Umbilical herniorrhaphy(Confirmed) Active Results Orders for Microbiology Reports Name Date Sputum Culture w/ Gram Smear (Culture Sp utum w/ Gram Smear) 09/25/19 Blood Culture 09/24/19 Blood Culture #2 09/24/19 Microbiology Reports TEST:Sputum Culture STATUS:Auth (Verified) BODY SITE: SOURCE:EXPECT COLLECTED DATE/TIME:09/25/19 8:30 AM Sputum Culture SPECIMEN DESCRIPTION : EXPECTORATED SPUTUM SPECIAL REQUESTS : NONE GRAM STAIN : 2+ POLYMORPHONUCLEAR LEUKOCYTES 1+ GRAM POSITIVE COCCI CULTURE : 2+ NORMAL GENE REPORT STATUS : FINAL 09/27/2019 TEST:Blood Culture, Second Order STATUS:Unauthenticated BODY SITE: SOURCE:Blood COLLECTED DATE/TIME:09/24/19 4:51 PM Blood Culture, Second Order SPECIMEN DESCRIPTION : BLOOD RAC SPECIAL REQUESTS : NONE CULTURE : NO GROWTH 3 DAYS REPORT STATUS : PRELIMINARY REPORT TEST:Blood Culture STATUS:Unauthenticated BODY SITE: SOURCE:Blood COLLECTED DATE/TIME:09/24/19 4:35 PM Blood Culture SPECIMEN DESCRIPTION : BLOOD R SPECIAL REQUESTS : NONE CULTURE : NO GROWTH 3 DAYS REPORT STATUS : PRELIMINARY REPORT Radiology Reports * Exam Date Time Procedure Performing Provider Status 09/24/19 3:38 PM Chest 2 Views Frontal and Lat Isha Littlejohn; Auth (Verified) Notes: (Chest 2 Views Frontal and Lat) Reason For Exam: Persistent Cough RESULT: Chest 2 Views Frontal and Lat Chest 2 Views Frontal and Lat Reason: Persistent Cough; Clinical Question(s): Pneumonia; Hx of Present Illness: Hx of end stage COPD. Dyspnea since last night, worse today after walking to the bathroom. Improved after being placed on NRB by EMS COMPARISON: 07/16/2019 FINDINGS: LINES AND TUBES: None. LUNGS AND PLEURA: Question of increased density in the left lung base. Hyperinflated lungs consistent with COPD. Postsurgical changes in the right lung base. HEART, MEDIASTINUM AND PAULINA: Unchanged. BONES AND SOFT TISSUES: Old right-sided rib fractures. Old thoracic and lumbar compression fractures. IMPRESSION: Question of a small pneumonia in the left lower lobe. Clinically correlate. WSN: [id number] Dictated By: Keshawn Green MD Dictated Date/Time: 09/24/19 3:43 pm Reviewed By: Keshawn Green MD Signed By: Keshawn Green MD Signed Date/Time: 09/24/19 3:43 pm Transcribed By: BUZZ Transcribed Date/Time: 09/24/19 3:40 pm Vital Signs Most recent to oldest [Reference Range]: 1 2 3 Height 159 cm (09/27/19 7:38 AM) 159 cm (09/26/19 11:30 PM) 159 cm (09/26/19 7:52 PM) Weight 48.2 kg (09/24/19 6:32 PM) 52.5 kg (09/24/19 6:03 PM) 52.5 kg (09/24/19 4:05 PM) Oxygen Saturation [94-100 %] 94 % (09/27/19 7:38 AM) 96 % (09/26/19 11:30 PM) 96 % (09/26/19 7:52 PM) Pulse Rate [55-90 bpm] 107 bpm *H* (09/27/19 7:38 AM) 80 bpm (09/26/19 11:30 PM) 97 bpm *H* (09/26/19 7:52 PM) Body Mass Index [18.5-24.99] 19.07 (09/24/19 6:32 PM) 20.77 (09/24/19 6:03 PM) 20.77 (09/24/19 4:05 PM) Blood Pressure [90-138/55-84 mm Hg] 118/90mm Hg (09/27/19 7:38 AM) 123/76mm Hg (09/26/19 11:30 PM) 136/81mm Hg (09/26/19 7:52 PM) Respiratory Rate [16-30 br/min] 17 br/min (09/27/19 10:19 AM) 17 br/min (09/27/19 10:18 AM) 18 br/min (09/27/19 7:38 AM) Temperature [96.8-100.4 DegF] 98.0 DegF (09/27/19 7:38 AM) 98.1 DegF (09/26/19 11:30 PM) 98.8 DegF (09/26/19 7:52 PM) Liters per Minute 3 L/min (09/26/19 12:03 AM) 3 L/min (09/25/19 8:00 PM) 3 L/min (09/25/19 3:48 PM) Mode of Delivery (Oxygen) Room air (09/27/19 7:38 AM) Room air (09/26/19 11:30 PM) Room air (09/26/19 7:52 PM) Blood pressure sites Arm, right (09/27/19 7:38 AM) Arm, left (09/26/19 11:30 PM) Arm, right (09/26/19 7:52 PM) Temperature Route Oral (09/27/19 7:38 AM) Oral (09/26/19 11:30 PM) Oral (09/26/19 7:52 PM) Dry Weight 48.2 kg (09/24/19 6:32 PM) 52.5 kg (09/24/19 6:03 PM) 52.5 kg (09/24/19 4:05 PM) Weight Obtained Via Patient/family state d (09/24/19 2:33 PM) Dry Weight Obtained Via Patient/family s tated (09/24/19 2:33 PM) Sensory deficits Other: glasses (09/24/19 6:32 PM) Mobility assistance Partial assistance (09/24/19 6:32 PM) Social History Social History Type Response Smoking Status Former smoker, quit more than 30 days ago; Other: quit 20 years ago; entered on: 09/24/19 Sex
--- OUTSIDE RECORDS SUMMARY | 2024-05-04 13:21 | XMS_ITS | Continuity of Care Document ---
Author Organization [facility] Address [address] [address]- Care Team Providers Care Wet Process Assistant Head Miller Name Role Phone Declan Muller MD Primary Care Physician Encounter [facility] Date(s): 04/30/20 - 05/07/20 [place] [id number] [address]- [place] Attending Physician: Julio Sherwood MD Admitting [...] [facility] 2Result Comment: [06/22/2018[facility] 5Admin Note: done @ clinic 6Admin Note: given w/out incident/VIS given 7Result Comment: [id number] 8[facility] 9Result Comment: [07/21/2014] given w/out incident 10Admin Note: CDC INFO GIVEN TO PATIENT 11Result Comment: lot #[id number] 12Admin Note: [facility] albuterol 0.083% inhalation solution 3 mL = 2.5 mg, Inhalation, Every 6 hours, PRN for wheezing, # 360 mL, 8 Refills, Maintenance, 07/07/19 14:14:00 EDT, Solution, ICD 10 J44.9, PLEASE BILL THROUGH MED B [id number] Start Date: 07/07/19 Status: Ordered alendronate 70 [...] 11:34:00 EDT, Suspension, Route to Pharmacy Electronically, [id number], [facility]/pharmacy #2024,... Start Date: 03/06/20 Status: Ordered [...] 04/23/20 15:59:00 EDT, Route to Pharmacy Electronically, [facility]/pharmacy #2024, 165, cm, 03/12/20 8:39:00 EDT, Height, [...] Replace Required Details, Route to Pharmacy Electronically, [facility]/pharmacy #2024... Start Date: 03/02/20 Status: Ordered duloxetine 20 mg oral enteric coated capsule 1 capsule = 20 mg, By Mouth, Daily, 0 Refills, Maintenance, 04/02/20 9:18:00 EDT Start Date: 04/02/20 Status: Ordered gabapentin 400 mg oral capsule 400 mg, 1, capsule, By Mouth, 2 times a day, # 60 each, Refills 11, Tot. Refills 11, Maintenance, 02/22/20 10:31:00 EDT, Route to Pharmacy Electronically, [facility]/pharmacy #2025, 165, cm, 01/27/20 8:11:00 EDT, Height, 53.6, kg, 10/14/19 10:56:00 EST, Dry... Start Date: 02/22/20 Status: Ordered methadone 10 mg oral tablet See Instructions, PRN for pain, 2 tablets By Mouth in the morning, 1 tablet in the afternoon, and 3tablets by mouth in the evening 28 day schedule, # 168 each, 0 Refills, Acute 05/22/20 17:00:00 EDT, 04/23/20 9:58:00 EDT, Tablet, [facility]/pharmacy #202... Start Date: 04/23/20 Stop Date: 05/22/20 Status: Ordered oxyCODONE 10 mg oral tablet 2 tablet = 20 mg, By Mouth, Every 4 hours, PRN as needed for pain, 28 day prescription patient may fill for less than quantity prescribed, # 224 tablet, 0 Refills, Acute 05/22/20 17:00:00 EDT, 04/23/20 9:58:00 EDT, Tablet, [facility]/pharmacy #2025, 165, cm... Start Date: 04/23/20 Stop [...] each, 11 Refills,Maintenance, 04/02/20 11:09:00 EDT, Tablet, [facility]/pharmacy #202, 165, cm, 03/12/20 8:39:00 EDT, Height, [...] Maintenance, 03/02/2017:09:00 EDT, Route to Pharmacy Electronically, [facility]/pharmacy #2024 Tablet, 165, cm, 01/27/20 8:11:00 EDT, Height, 53.6, kg, 10/14/19 10:56:00 EST, Dry... Start Date: 03/02/20 Status: Ordered triamcinolone 0.1% topical cream 1 application, Topically, 3 times a day, PRN psoriasis rash, # 60 Gm, 5 Refills, Acute 01/01/21 10:47:00 EDT, 01/02/20 10:46:00 EDT, Cream, [facility]/pharmacy #2024, 1 application Topically 3 times a day,PRN:psoriasis rash, 165, cm, 11/17/19 10:08:00 EST, H... Start Date: 01/02/20 Stop Date: 01/01/21 Status: Ordered Ventolin HFA 108 mcg/inh inhalation aerosol with adapter 2 puffs, Inhalation, 4 times a day, PRN for wheezing, # 18 Gm, 11 Refills, Maintenance, 01/13/20 11:40:00 EDT, Aerosol, [facility]/pharmacy #202, 165, cm, 11/17/19 10:08:00 EST, Height, 53.6, kg, 10/14/19 10:56:00 EST, Dry Weight Start Date: 01/13/20 Status: Ordered Yupelri 175 mcg/3 mL inhalation solution = 175 mcg, Inhalation, Daily, j44.9, # 360 mL, 6 Refills, Maintenance, 03/06/20 11:37:00 EDT, [facility], ICD 10 J44.9, PLEASE BILL THROUGH MED B [id number], 165, cm, 01/27/20 8:11:00 EDT, Height, 53.6, [...] oldest [Reference Range]: 1 Height 165 cm (04/30/20 10:34 AM) Weight 67.3 kg (04/30/20 10:34 AM) Oxygen Saturation [94-100 %] 98 % (04/30/20 10:34 AM) Pulse Rate [55-90 bpm] 100 bpm *H* (04/30/20 10:34 AM) Body Mass Index [18.5-24.99] 24.72 (04/30/20 10:34 AM) Blood Pressure [90-138/55-84 mm Hg] 120/ 70mm Hg (04/30/20 10:34 AM) Mode of Delivery (Oxygen) Room air (04/30/20 10:34 AM) Weight Obtained Via Standing scale (04/30/20 10:34 AM) Social History Social History Type Response Smoking Status Former smoker, quit more than 30 days ago; Other: quit 20 years ago; entered on: 09/24/19 Sex
--- OUTSIDE RECORDS SUMMARY | 2024-05-04 13:21 | XMS_ITS | Continuity of Care Document ---
Author Organization [facility] Address [address] [place] [address]- Care Team Providers Care Refrigeration Mechanic Name Role Phone Declan Muller MD Primary Care Physician [place] [facility] [place]22 [facility] [address] [place] [address]- Encounter Diagnosis Chronic obstructive lung disease(Discharge Diagnosis) - 01/23/22 Functional bowel disorder(Discharge Diagnosis) - 01/23/22 Lumbar radiculopathy(Discharge Diagnosis) - 01/23/22 Anxiety disorder(Discharge Diagnosis) - 01/23/22 Attending Physician: Declan Muller MD Allergies, Adverse [...] 12 08/19/08 Given 1Result Comment: DONE AT [facility] 2Result Comment: [06/22/2018] given at [facility] 3Location History: [facility] 4Location History: [facility] 5Admin Note: done @ clinic 6Admin Note: given w/out incident/VIS given 7Result Comment: [id number] 8Location History: [facility] 9Result Comment: [07/21/2014] given w/out incident 10Admin Note: CDC INFO GIVEN TO PATIENT 11Result Comment: lot #[id number] 12Admin Note: [facility] albuterol 0.083% inhalation solution 3 mL = 2.5 mg, Inhalation, Every 6 hours, PRN for wheezing, # 360 mL, 8 Refills, Maintenance, 07/07/19 14:14:00 EDT, Solution, ICD 10 J44.9, PLEASE BILL THROUGH MED B [id number] Start Date: 07/07/19 Status: Ordered alendronate 70 [...] 01/28/23 13:06:00 EDT, 01/28/22 13:05:00 EDT, Tablet, [facility], 165, cm, 01/23/22 11:55:00 EDT, Height, [...] 1 Refills, Maintenance, 04/24/20 16:53:00 EDT, Solution, [facility]/pharmacy #2024, ICD Code J44.9, 165, cm, 03/12/20 8:39:00EDT, Height, 70.7, kg, 03/08/20 16:16:00 EDT, Dry... Start Date: 04/24/20 Status: Ordered budesonide 0.25 mg/2 mL inhalation suspension 0.25 mg, 2, mL, Neb, 2 times a day, for COPD J44.9. rinse mouth after use, # 120 mL, Refills 6, Tot. Refills 6, Maintenance, 03/06/20 11:34:00 EDT, Suspension, Route to Pharmacy Electronically, [id number], [facility]/pharmacy #2024,... Start Date: 03/06/20 Status: Ordered calcium-vitamin D 600 mg-400 intl units oral tablet See Instructions, 1 tablet By Mouth twice daily, # 60 tablet, 11 Refills, Maintenance, 10/28/21 10:33:00 EST, Tablet, [facility]/pharmacy #2024, 1 tablet By Mouth twice daily, 165, cm, 10/25/21 17:56:00 EST, Height, 54.5, kg, 10/25/21 17:05:00 EST, Dry Weight Start Date: 10/28/21 Status: Ordered Citrate of Magnesia 8.85% oral liquid See Instructions, 30 mL By Mouth Once daily as needed for constipation, # 300 mL, 1 Refills, Soft Stop, 10/02/21 17:13:00 EST, Liquid, [facility]/pharmacy #2024, Partial fill upon patient request if the prescription is for a schedule II opioid drug., 30 mL B... Start Date: 10/02/21 Status: Ordered cyclobenzaprine 10 mg oral tablet 1, tablet, By Mouth, Daily, PRN, # 30 tablet, Refills 11, Tot. Refills 11, Physician Stop 12/02/22 16:09:00 EST, NEEDED FOR PAIN, 12/02/21 16:09:00 EST, Route to Pharmacy Electronically, [facility]/pharmacy #2024, 165, cm, 10/25/21 17:56:00 EST, Height, 5... Start Date: 12/02/21 Stop Date: 12/02/22 Status: Ordered docusate sodium 100 mg oral capsule 2 capsule, By Mouth, 2 times a day, PRN NEEDED FOR CONSTIPATION FOR, # 120 capsule, 5 Refills, Maintenance, 12/30/21 10:25:00 EDT, [facility]/pharmacy #2024, 165, cm, 12/23/21 9:22:00 EST, Height, 54.5, kg, 10/25/21 17:05:00 EST, Dry Weight Start Date: 12/30/21 Stop Date: 06/28/22 Status: Ordered duloxetine 20 mg oral enteric coated capsule 1 capsule = 20 mg, By Mouth, 2 times a day, # 60 each, 11 Refills, Maintenance, 07/16/21 15:55:00 EDT, Capsule, [facility]/pharmacy #2024, Partial fill upon patient request if the prescription is for a schedule II opioid drug., 165, cm, 06/05/21 10:01:00 EDT... Start Date: 07/16/21 Status: Ordered gabapentin 400 mg oral capsule 1, capsule, By Mouth, 3 times a day, # 90 each, Refills 11, Tot. Refills 11, Maintenance, 09/09/21 11:35:00 EST, Route to Pharmacy Electronically, [facility]/pharmacy #2024, dose increase, refill when needed, [...] 01/29/23 13:52:00 EDT, 01/29/22 13:52:00 EDT, Tablet, [facility]/pharmacy #20... Start Date: 01/29/22 Stop Date: 01/29/23 Status: Ordered nystatin 556072 u/ml oral suspension 5 mL, By Mouth, 4 times a day, for 7 days, # 140 mL, 1 Refills, Physician Stop 01/31/22 15:42:00 EDT, 01/17/22 15:42:00 EDT, [facility]/pharmacy #2025, 165, cm, 12/23/21 9:22:00 EST, Height, 54.5, kg, 10/25/21 17:05:00 EST, Dry Weight Start Date: 01/17/22 Stop Date: 01/31/22 Status: Ordered oxyCODONE 10 mg oral tablet 2 tablet = 20 mg, By Mouth, Every 4 hours, PRN as needed for pain, 28 day prescription patient may fill for less than quantity prescribed, # 224 tablet, 0 Refills, Acute 01/29/23 13:53:00 EDT, 01/29/22 13:53:00 EDT, Tablet, [facility]/pharmacy #2025, refill... Start Date: 01/29/22 Stop Date: [...] 10 J44.9, PLEASE BILL THROUGH MED B [id number], 165, cm, 06/05/21 10:01:00 EDT, Height, 61.4, [...] Informant Chronic obstructive lung disease Discharge Diagnosis 01/23/22 Functional bowel disorder Discharge Diagnosis 01/23/22 Lumbar radiculopathy Discharge Diagnosis 01/23/22 Anxiety disorder Discharge Diagnosis 01/23/22 Vital Signs Most recent to oldest [Reference Range]: 1 Height 165 cm (01/23/22 11:55 AM) Weight 58.5 kg (01/23/22 11:55 AM) Oxygen Saturation [94-100 %] 95 % (01/23/22 11:55 AM) Pulse Rate [55-90 bpm] 103 bpm *H* (01/23/22 11:55 AM) Body Mass Index [18.5-24.99] 21.49 (01/23/22 11:55 AM) Blood Pressure [90-138/55-84 mm Hg] 104/ 62mm Hg (01/23/22 11:55 AM) Blood pressure sites Arm, left (01/23/22 11:55 AM) Social History Social History Type Response Smoking Status Former smoker, quit more than 30 days ago; Other: quit 20 years ago; entered on: 09/24/19 Sex
--- OUTSIDE RECORDS SUMMARY | 2024-05-04 13:21 | XMS_ITS | Continuity of Care Document ---
Author Organization [facility] Address [address] [place] [address]- Care Team Providers Care Freelance Director Name Role Phone Declan Muller MD Primary Care Physician [phone] [place]counter [facility] [place](s): 03/27/23 - 04/26/23 [facility] [address] [place] [address]- Attending Physician: Kaleb De Leon Admitting Physician: AdmtrKaleb Referring Physician: Admtr, Ar8 Allergies, Adverse Reactions, [...] 9 09/06/15 Recorded tetanus-diphtheria toxoids (Td) 10 10/3/14 Given FluLaval (oldterm) 11 08/08/10 Given pneumococcal 23-valent vaccine 12/02/09 Given pneumococcal 23-valent vaccine 12 12/02/09 Given Influenza Vaccine (oldterm) 13 08/19/08 Given 1Result Comment: [facility] 2[place] [id number] 2Result Comment: [06/22/2018] given at [facility] 3Location History: [facility] 4Location History: [facility] 5Admin Note: done @ clinic 6Admin Note: given w/out incident/VIS given 7Result Comment: [id number] 8Result Comment: DONE AT [facility] 9Location History: [facility] 10Result Comment: [07/21/2014] given w/out incident 11Admin Note: CDC INFO GIVEN TO PATIENT 12Result Comment: lot #[id number] 13Admin Note: [facility] albuterol 0.083% inhalation solution 3 mL = 2.5 mg, Inhalation, Every 6 hours, PRN for wheezing, # 360 mL, 8 Refills, Maintenance, 07/07/19 14:14:00 EDT, Solution, ICD 10 J44.9, PLEASE BILL THROUGH MED B [id number] Start Date: 07/07/19 Status: Ordered albuterol 90 [...] 11:34:00 EDT, Suspension, Route to Pharmacy Electronically, [id number], [facility]/pharmacy #2024,... Start Date: 03/06/20 Status: Ordered calcium-vitamin D 600 mg-400 intl units oral tablet 1 tablet, By Mouth, 2 times a day, # 180 tablet, 1 Refills, Maintenance, 10/07/22 11:54:00 EST, [id number], [facility], TAKE 1 TABLET BY MOUTH TWICE [...] 11 Refills,Maintenance, 08/19/22 11:00:00 EDT, EC Tablet, [facility]/pharmacy #202, Partial fill upon patient request [...] capsule, 11 Refills, Maintenance, 03/03/23 10:03:00 EDT, [facility]/pharmacy #202, 165, cm, 01/21/23 10:40:00 EDT, Height, 55.8, kg, 01/23/23 8:24:00 EDT, Dry Weight Start Date: 03/03/23 Stop Date: 02/26/24 Status: Ordered duloxetine 30 mg oral enteric coated capsule 1 capsule = 30 mg, By Mouth, Daily, # 30 capsule, 11 Refills, Maintenance, 12/15/22 9:46:00 EST, Capsule, [facility]/pharmacy #202, Partial fill upon patient request if the prescription is for a schedule II opioid drug., 165, cm, 10/09/22 11:32:00 EST, [facility]... Start Date: 12/15/22 Status: Ordered gabapentin 400 mg oral capsule 1, capsule, By Mouth, 3 times a day, # 90 capsule, Refills 11, Maintenance, 10/07/22 13:28:00 EST, Route to Pharmacy Electronically, [facility] STORE [facility], 165, cm, 08/26/22 11:06:00 EST, Height, 64.7, [...] Refills, Maintenance, 10/15/22 9:58:00 EST, [facility], 165, cm, 10/09/22 11:32:00 EST, Height, 64.7, [...] 04/20/23 Stop Date: 04/20/24 Status: Ordered nystatin 462990 u/ml oral suspension 5 mL, By Mouth, 4 times a day, # 480 mL, 1 Refills, [facility], 165, cm, 03/28/22 11:14:00 EDT, Height, 60.4, [...] 10 J44.9, PLEASE BILL THROUGH MED B [id number], 165, cm, 06/05/21 10:01:00 EDT, Height, 61.4, kg, 05/28/... Start Date: 08/12/21 Status: Ordered ZyrTEC 10 [...] 20 years ago; entered on: 09/24/19 Sex Radiology * Event Display: CT Scan Abdomen, Non- Authored Date: * Event Display: CT Scan Abdomen, Non- Authored Date: Patient Care team information Care Team Personnel Name: Joelle Castillo Position: [facility] Onco RN Member Role: Primary Care Nurse Name: Marilee Pitts RN Position: [facility] RN Member Role: Primary Care Nurse Name: Shawnee Schafer RN Position: [facility] SN RN Member Role: Primary Care Nurse Name: Declan Muller MD Position: [facility] Physician - Primary Care Member Role: PCP Address: Address: [address] [place] [address] [facility] [address] Name: Aylin Byrne RN Position: S RN Member Role: Primary Care Nurse Name: Blaire Wilde RN Position: [facility] RN Supv Member Role: Primary Care Nurse Name: Edilma Metzger RN Position: S RN Member Role: Primary Care Nurse Name: Katherine Bond RN Position: [facility] SN RN Member Role: Primary Care Nurse Name: Kerry Negron RN Position: [facility] RN Member Role: Primary Care Nurse Name: Missy Avilez RN Position: [facility] Onco RN Member Role: Primary Care Nurse Name: Katina Marcus RN Position: [facility] RN Member Role: Primary Care Nurse Name: Sienna Horne RN Position: [facility] RN Member Role: Primary Care Nurse Name: Ernestine Thomas RN Position: [facility] RN Member Role: Primary Care Nurse Care Team Related Persons Name: BRITTANY TAYLORNIE Address: [address] [address]
--- OUTSIDE RECORDS SUMMARY | 2024-05-04 13:21 | XMS_ITS | Continuity of Care Document ---
Author Organization [facility] Address [address] [place] [address]- Care Team Providers Care Pasta Maker Name Role Phone Declan Muller MD Primary Care Physician [phone] Encounter [facility] Date(s): 03/30/20 - 05/05/20 [facility] [address] [place] [address]- [facility] Attending Physician: Declan Muller MD Allergies, Adverse [...] Note: given w/out incident/VIS given 7Result Comment: [id number], [id number] [facility] 9Result Comment: [07/21/2014] given w/out incident 10Admin Note: [facility] INFO GIVEN TO PATIENT 11Result Comment: lot #[id number] 12Admin Note: [facility] albuterol 0.083% inhalation solution 3 mL = 2.5 mg, Inhalation, Every 6 hours, PRN for wheezing, # 360 mL, 8 Refills, Maintenance, 07/07/19 14:14:00 EDT, Solution, ICD 10 J44.9, PLEASE BILL THROUGH MED B [id number] Start Date: 07/07/19 Status: Ordered alendronate 70 [...] 11:34:00 EDT, Suspension, Route to Pharmacy Electronically, [id number], [facility]/pharmacy #2024,... Start Date: 03/06/20 Status: [...] 04/23/20 15:59:00 EDT, Route to Pharmacy Electronically, [facility]/pharmacy #2024, 165, cm, 03/12/20 8:39:00 EDT, Height, [...] Replace Required Details, Route to Pharmacy Electronically, [facility]/pharmacy #2024... Start Date: 03/02/20 Status: [...] 02/22/20 10:31:00 EDT, Route to Pharmacy Electronically, [facility]/pharmacy #5, 165, cm, 01/27/20 8:11:00 EDT, Height, 53.6, kg, 10/14/19 10:56:00 EST, Dry... Start Date: 02/22/20 Status: Ordered methadone 10 mg oral tablet See Instructions, PRN for pain, 2 tablets By Mouth in the morning, 1 tablet in the afternoon, and 3tablets by mouth in the evening 28 day schedule, # 168 each, 0 Refills, Acute 05/22/20 17:00:00 EDT, 04/23/20 9:58:00 EDT, Tablet, [facility]/pharmacy #202... Start Date: 04/23/20 Stop Date: 05/22/20 Status: Ordered oxyCODONE 10 mg oral tablet 2 tablet = 20 mg, By Mouth, Every 4 hours, PRN as needed for pain, 28 day prescription patient may fill for less than quantity prescribed, # 224 tablet, 0 Refills, Acute 05/22/20 17:00:00 EDT, 04/23/20 9:58:00 EDT, Tablet, [facility]/pharmacy #2024, 165, cm... Start Date: 04/23/20 Stop [...] each, 11 Refills,Maintenance, 04/02/20 11:09:00 EDT, Tablet, [facility]/pharmacy #2025, 165, cm, 03/12/20 8:39:00 [...] Maintenance, 03/02/2017:09:00 EDT, Route to Pharmacy Electronically, [facility]/pharmacy #2024 Tablet, 165, cm, 01/27/20 8:11:00 EDT, Height, 53.6, kg, 10/14/19 10:56:00 EST, Dry... Start Date: 03/02/20 Status: Ordered triamcinolone 0.1% topical cream 1 application, Topically, 3 times a day, PRN psoriasis rash, # 60 Gm, 5 Refills, Acute 01/01/21 10:47:00 EDT, 01/02/20 10:46:00 EDT, Cream, [facility]/pharmacy #2024, 1 application Topically 3 times a day,PRN:psoriasis rash, 165, cm, 11/17/19 10:08:00 EST, H... Start Date: 01/02/20 Stop Date: 01/01/21 Status: Ordered Ventolin HFA 108 mcg/inh inhalation aerosol with adapter 2 puffs, Inhalation, 4 times a day, PRN for wheezing, # 18 Gm, 11 Refills, Maintenance, 01/13/20 11:40:00 EDT, Aerosol, [facility]/pharmacy #2025, 165, cm, 11/17/19 10:08:00 EST, Height, 53.6, kg, 10/14/19 10:56:00 EST, Dry Weight Start Date: 01/13/20 Status: Ordered Yupelri 175 mcg/3 mL inhalation solution = 175 mcg, Inhalation, Daily, j44.9, # 360 mL, 6 Refills, Maintenance, 03/06/20 11:37:00 EDT, [facility]/pharmacy #2024, ICD 10 J44.9, PLEASE BILL THROUGH MED B [id number], 165, cm, 01/27/20 8:11:00 EDT, Height, 53.6, [...]
--- OUTSIDE RECORDS SUMMARY | 2024-05-04 13:22 | XMS_ITS | Continuity of Care Document ---
Author Organization [facility] Address [address] [place] [id number]- Care Team Providers Care Mid Level Developer Name Role Phone Declan Muller MD Primary Care Physician Encounter [facility] [place](s[place] 02/19/21 - 03/24/[address] [address] Attending Physician: Heide GRAHAM(Hem/Onc)Fercho Admitting Physician: Heide GRAHAM(Hem/Onc), Fercho Corral Referring Physician: Heide GRAHAM(Hem/Onc)Fercho Allergies, Adverse Reactions, Alerts Substance Reaction Severity [...] 12 08/19/08 Given 1Result Comment: DONE AT [facility] 2Result Comment: [06/22/2018[facility] 5Admin Note: done @ clinic 6Admin Note: given w/out incident/VIS given 7Result Comment: [id number] [facility] 9Result Comment: [07/21/2014] given w/out incident 10Admin Note: [facility] INFO GIVEN TO PATIENT 11Result Comment: lot #[id number] 12Admin Note: [facility] albuterol 0.083% inhalation solution 3 mL = 2.5 mg, Inhalation, Every 6 hours, PRN for wheezing, # 360 mL, 8 Refills, Maintenance, 07/07/19 14:14:00 EDT, Solution, ICD 10 J44.9, PLEASE BILL THROUGH MED B [id number] Start Date: 07/07/19 Status: Ordered alendronate 70 mg oral tablet 1 tablet = 70 mg, By Mouth, Every week, # 4 tablet, 0 Refills, Maintenance, 04/02/20 11:08:00 EDT, Tablet Start Date: 04/02/20 Status: Ordered Ativan 1 mg oral tablet 1 tablet = 1 mg, By Mouth, 3 times a day, PRN for anxiety, # 84 each, 0 Refills, Acute 04/22/21 17:00:00 EDT, 03/22/21 9:01:00 EDT, Tablet, [facility], 165, cm, 03/15/21 10:38:00 EDT, Height,61.4, kg, 03/15/21 10:38:00 EDT, Dry Weight Start Date: 03/22/21 Stop Date: 04/22/21 Status: Ordered Brovana 15 mcg/2 mL inhalation [...] 11:34:00 EDT, Suspension, Route to Pharmacy Electronically, [id number], [facility]/pharmacy #2024,... Start Date: 03/06/20 [...] 11/21/20 16:36:00 EST, [facility] STORE [facility]60, 165, cm, 05/17/20 16:00:00 EDT, Height, 66.5, [...] to Pharmacy Electronically, [facility] 580[facility], 165, cm, 12/20/20 10:40:00 EST, Height, 66.7, [...] schedule, # 168 each, 0 Refills, Acute 04/22/21 17:00:00 EDT, 03/22/21 9:01:00 EDT, Tablet, [facility]/pharmacy #202... Start Date: 03/22/21 Stop Date: 04/22/21 Status: Ordered naproxen 500 mg oral tablet [...] prescribed, # 224 tablet, 0 Refills, Acute 04/21/21 17:00:00 EDT, 03/22/21 9:01:00 EDT, Tablet, [facility]/pharmacy #202, refill... Start Date: 03/22/21 Stop Date: 04/21/21 Status: Ordered pantoprazole 40 mg oral delayed [...] Maintenance, 07/04/20 15:51:00 EDT, [facility]/pharmacy #2024, 165, cm, 05/17/20 [...] 01/13/20 11:40:00 EDT, Aerosol, [facility]/pharmacy #2025, 165, cm, 11/17/19 10:08:00 EST, Height, 53.6, kg, 10/14/19 10:56:00 EST, Dry Weight Start Date: 01/13/20 Status: Ordered Yupelri 175 mcg/3 mL inhalation solution = 175 mcg, Inhalation, Daily, j44.9 please bill through med B, # 120 mL, 3 Refills, Maintenance, 01/22/21 8:54:00 EDT, [facility], ICD 10 J44.9, PLEASE BILL THROUGH MED B [id number], 165, cm, 12/20/20 10:40:00 EST, Height, 66.7, [...]
--- OUTSIDE RECORDS SUMMARY | 2024-05-04 13:22 | XMS_ITS | Continuity of Care Document ---
Author Organization [facility] Address [address] [place] [address]- Care Team Providers Care Key Worker Name Role Phone Declan Muller MD Primary Care Physician [phone] Encounter [facility] Date(s): 03/28/22 - 04/04/22 [facility] [address] [place], [place] [address] Encounter Diagnosis Chronic obstructive lung disease(Discharge Diagnosis) - 03/28/22 Immunodeficiency disorder, hypogammaglobulinemia(Discharge Diagnosis) - 03/28/22 Hypertension(Discharge Diagnosis) - 03/28/22 Hyperglycemia(Discharge Diagnosis) - 03/28/22 Functional bowel disorder(Discharge Diagnosis) - 03/28/22 Complex sleep apnea syndrome(Discharge Diagnosis) - 03/28/22 Anxiety disorder(Discharge Diagnosis) - 03/28/22 Lumbar radiculopathy(Discharge Diagnosis) - 03/28/22 Attending Physician: Declan Muller MD Allergies, Adverse [...] 12 08/19/08 Given 1Result Comment: DONE AT [facility] 2Result Comment: [06/22/2018] given at [facility] 3Location History: [facility] 4Location History: [facility] 5Admin Note: done @ clinic 6Admin Note: given w/out incident/VIS given 7Result Comment: [id number], [id number] [facility] 9Result Comment: [07/21/2014] given w/out incident 10Admin Note: [facility] INFO GIVEN TO PATIENT 11Result Comment: lot #[id number] 12Admin Note: [facility] albuterol 0.083% inhalation solution 3 mL = 2.5 mg, Inhalation, Every 6 hours, PRN for wheezing, # 360 mL, 8 Refills, Maintenance, 07/07/19 14:14:00 EDT, Solution, ICD 10 J44.9, PLEASE BILL THROUGH MED B [id number] Start Date: 07/07/19 Status: Ordered Ativan 1 mg oral tablet 1 tablet = 1 mg, By Mouth, 3 times a day, PRN for anxiety, # 84 each, 0 Refills, Acute 04/30/22 17:00:00 EDT, 03/28/22 9:53:00 EDT, Tablet, [facility], 165, cm, 03/20/22 15:06:00 EDT, Height,60.4, kg, 03/06/22 10:48:00 EDT, Dry Weight Start Date: 03/28/22 Stop Date: 04/30/22 Status: Ordered Brovana 15 mcg/2 mL inhalation [...] 11:34:00 EDT, Suspension, Route to Pharmacy Electronically, [id number], [facility]/pharmacy #2024,... Start Date: 03/06/20 Status: Ordered calcium-vitamin D 600 mg-400 intl units oral tablet See Instructions, 1 tablet By Mouth twice daily, # 60 tablet, 11 Refills, Maintenance, 10/28/21 10:33:00 EST, Tablet, [facility]/pharmacy #2024, 1 tablet By Mouth twice daily, 165, cm, 10/25/21 17:56:00 EST, Height, 54.5, kg, 10/25/21 17:05:00 EST, Dry Weight Start Date: 10/28/21 Status: Ordered cyclobenzaprine 10 mg oral tablet 1, tablet, By Mouth, Daily, PRN, # 30 tablet, Refills 11, Tot. Refills 11, Physician Stop 12/02/22 16:09:00 EST, NEEDED FOR PAIN, 12/02/21 16:09:00 EST, Route to Pharmacy Electronically, [facility]/pharmacy #2024, 165, cm, 10/25/21 17:56:00 EST, [...] capsule, 5 Refills, Maintenance, 12/30/21 10:25:00 EDT, [facility]/pharmacy #2025, 165, cm, 12/23/21 9:22:00 EST, [...] 09/09/21 11:35:00 EST, Route to Pharmacy Electronically, [facility]/pharmacy #202, dose increase, refill when needed, 165, cm, 09/09/21 11:19:00 EST, Height, 61.4, kg,... Start Date: 09/09/21 Status: Ordered Linzess 290 mcg oral capsule 1 capsule = 290 mcg, By Mouth, Daily, # 30 capsule, 3 Refills, Maintenance, 02/24/22 15:40:00 EDT, Capsule, [facility]/pharmacy #202, Partial fill upon patient request [...] schedule, # 168 each, 0 Refills, Acute 04/27/22 17:00:00 EDT, 03/28/22 9:53:00 EDT, Tablet, [facility]/pharmacy #202... Start Date: 03/28/22 Stop Date: 04/27/22 Status: Ordered nystatin 852726 u/ml oral suspension 5 mL, By Mouth, [...] prescribed, # 224 tablet, 0 Refills, Acute 04/27/22 17:00:00 EDT, 03/28/22 9:54:00 EDT, Tablet, [facility]/pharmacy #2025, refill... Start Date: 03/28/22 Stop Date: 04/27/22 Status: Ordered pantoprazole 40 mg oral delayed [...] 11 Refills, Maintenance, 01/13/20 11:40:00 EDT, Aerosol, [facility]/pharmacy #2025, 165, cm, 11/17/19 10:08:00 EST, Height, 53.6, kg, 10/14/19 10:56:00 EST, Dry Weight Start Date: 01/13/20 Status: Ordered Yupelri 175 mcg/3 mL inhalation solution = 175 mcg, Inhalation, Daily, j44.9 please bill through med B, # 90 mL, 2 Refills, Maintenance, 08/12/21 16:05:00 EDT, [facility], ICD 10 J44.9, PLEASE BILL THROUGH MED B [id number], 165, cm, 06/05/21 10:01:00 EDT, Height, 61.4, kg, 03/15/... Start Date: 08/12/21 Status: Ordered ZyrTEC 10 mg oral tablet 1 tablet = 10 mg, By Mouth, Daily, PRN Sinus Symptoms, # 30 tablet, 11 Refills, Maintenance, 01/20/22 15:23:00 EDT, Tablet, [facility], 165, cm, 12/23/21 9:22:00 EST, Height, [...] Informant Chronic obstructive lung disease Discharge Diagnosis 03/28/22 Immunodeficiency disorder, hypogammaglobulinemia Discharge Diagnosis 03/28/22 Hypertension Discharge Diagnosis 03/28/22 Hyperglycemia Discharge Diagnosis 03/28/22 Functional bowel disorder Discharge Diagnosis 03/28/22 Complex sleep apnea syndrome Discharge Diagnosis 03/28/22 Anxiety disorder Discharge Diagnosis 03/28/22 Lumbar radiculopathy Discharge Diagnosis 03/28/22 Vital Signs Most recent to oldest [Reference Range]: 1 Height 165 cm (03/28/22 11:14 AM) Weight 61.4 kg (03/28/22 11:14 AM) Oxygen Saturation [94-100 %] 93 % *L* (03/28/22 11:14 AM) Pulse Rate [55-90 bpm] 53 bpm *L* (03/28/22 11:14 AM) Body Mass Index [18.5-24.99] 22.55 (03/28/22 11:14 AM) Blood Pressure [90-138/55-84 mm Hg] 118/ 70mm Hg (03/28/22 11:14 AM) Blood pressure sites Arm, left (03/28/22 11:14 AM) Social History Social History Type Response Smoking Status Former smoker, quit more than 30 days ago; Other: quit 20 years ago; entered on: 09/24/19 Sex
--- OUTSIDE RECORDS SUMMARY | 2024-05-04 13:22 | XMS_ITS | Continuity of Care Document ---
Author Organization [facility] Address [address] [place] [address]- Care Team Providers Care Aircraft Charter Dispatcher Name Role Phone Renzo GRAHAM, Declan Hou Primary Care Physician [phone] Encounter [facility] Date(s): 10/02/23 - 11/01/[address] [id number] Allergies, Adverse Reactions, Alerts Substance Reaction Severity [...] (oldterm) 13 08/19/08 Given 1Result Comment: [facility] [id number] 2Result Comment: [06/22/2018] given at [facility] 3Location History: [facility] 4Location History: [facility] 5Admin Note: done @ clinic 6Admin Note: given w/out incident/VIS given 7Result Comment: [id number], [id number] 8Result Comment: DONE AT [facility] 10Result Comment: [07/21/2014] given w/out incident 11Admin Note: [facility] INFO GIVEN TO PATIENT 12Result Comment: lot #[id number] 13Admin Note: [facility] albuterol 0.083% inhalation solution 3 mL = 2.5 mg, Inhalation, Every 6 hours, PRN for wheezing, # 360 mL, 8 Refills, Maintenance, 07/07/19 14:14:00 EDT, Solution, ICD 10 J44.9, PLEASE BILL THROUGH MED B [id number] Start Date: 07/07/19 Status: Ordered albuterol 90 [...] 11:34:00 EDT, Suspension, Route to Pharmacy Electronically, [id number], [facility]/pharmacy #202,... Start Date: 03/06/20 Status: Ordered calcium-vitamin D 600 mg-400 intl units oral tablet 1 tablet, By Mouth, 2 times a day, # 180 tablet, 1 Refills, Maintenance, 10/07/22 11:54:00 EST, [facility], 90, TAKE 1 TABLET BY MOUTH TWICE [...] 09/24/23 14:08:00 EST, Route to Pharmacy Electronically, [facility]/pharmacy #2024, 165, cm, 09/04/23 8:51:00 EST, Height,... [...] capsule, 11 Refills, Maintenance, 03/03/23 10:03:00 EDT, [facility]/pharmacy #2025, 165, cm, 01/21/23 10:40:00 EDT, Height, 55.8, kg, 01/23/23 8:24:00 EDT, Dry Weight Start Date: 03/03/23 Stop Date: 02/26/24 Status: Ordered duloxetine 30 mg oral enteric coated capsule 1 capsule = 30 mg, By Mouth, Daily, # 30 capsule, 11 Refills, Maintenance, 09/14/23 16:34:00 EST, Capsule, [facility]/pharmacy #2025, Partial fill upon patient request if the prescription is for a schedule II opioid drug., 165, cm, 09/04/23 8:51:00 EST, Rony. Start Date: 09/14/23 Status: Ordered gabapentin 400 mg oral capsule 1, capsule, By Mouth, 3 times a day, # 90 capsule, Refills 11, Maintenance, 10/07/22 13:28:00 EST, Route to Pharmacy Electronically, [facility], 165, cm, 08/26/22 11:06:00 EST, Height, 64.7, [...] capsule, 3 Refills, Maintenance, 10/15/22 9:58:00 EST, [facility], 165, cm, 10/09/22 11:32:00 EST, Height, 64.7, [...] 09/24/24 14:08:00 EST, 09/24/23 14:07:00 EST, Tablet, [facility]/pharmacy #20... Start Date: 09/24/23 Stop Date: 09/24/24 Status: Ordered nystatin 962372 u/ml oral suspension 5 mL, By Mouth, [...] 10 J44.9, PLEASE BILL THROUGH MED B [id number], 165, cm, 06/05/21 10:01:00 EDT, Height, 61.4, [...] Care Team Personnel Name: Joelle Castillo Position: [facility] Onco RN Member Role: Primary Care Nurse Name: Shawnee Schafer RN Position: [facility] SN RN Member Role: Primary Care Nurse Name: Declan Muller MD Position: [facility] Physician - Primary Care Member Role: PCP Address: Address: [address] [place] [address] [facility] [address] Name: Aylin Byrne RN Position: [facility] RN Member Role: Primary Care Nurse Name: Edilma Metzger RN Position: [facility] RN Member Role: Primary Care Nurse Name: Katherine Bond RN Position: [facility] SN RN Member Role: Primary Care Nurse Name: Gena Chavez RN Position: [facility] irrigating pump operator Member Role: Electronic Sensing Equipment Assembler Name: Kerry Negron RN Position: [facility] RN Member Role: Primary Care Nurse Name: Joslyn Dodge RN Position: [facility] SN RN Member Role: Primary Care Nurse Name: Missy Avilez RN Position: [facility] Onco RN Member Role: Primary Care Nurse Name: Katina Marcus RN Position: [facility] RN Member Role: Primary Care Nurse Name: Sienna Horne RN Position: [facility] RN Member Role: Primary Care Nurse Name: Ernestine Thomas RN Position: [facility] RN Member Role: Primary Care Nurse Care Team Related Persons Name: JANICE TAYLOR Address: [address] [address]
--- OUTSIDE RECORDS SUMMARY | 2024-05-04 13:22 | XMS_ITS | Continuity of Care Document ---
Author Organization [facility] Address [address] [place] [address]- Care Team Providers Care Production Material Handler Name Role Phone Declan Muller MD Primary Care Physician Encounter 10/30/21 - 11/06/21 [facility] [address], [address] [place] [address]- Attending Physician: Marge Nickerson MD Admitting Physician: Marge Nickerson MD Referring Physician: Marge Nickerson MD Allergies, Adverse Reactions, Alerts Substance Reaction [...] 08/19/08 Given 1Result Comment: DONE AT [facility] 2Result Comment: [06/22/2018] given at [facility] 3Location History: [facility] 4Location History: [facility] 5Admin Note: done @ clinic 6Admin Note: given w/out incident/VIS given 7Result Comment: [id number], [id number] [facility] 9Result Comment: [07/21/2014] given w/out incident 10Admin Note: [facility] INFO GIVEN TO PATIENT 11Result Comment: lot #[id number] 12Admin Note: [facility] albuterol 0.083% inhalation solution 3 mL = 2.5 mg, Inhalation, Every 6 hours, PRN for wheezing, # 360 mL, 8 Refills, Maintenance, 07/07/19 14:14:00 EDT, Solution, ICD 10 J44.9, PLEASE BILL THROUGH MED B [id number] Start Date: 07/07/19 Status: Ordered alendronate 70 [...] 11:34:00 EDT, Suspension, Route to Pharmacy Electronically, [id number], [facility]/pharmacy #2025,... Start Date: 03/06/20 Status: Ordered calcium-vitamin D 600 mg-400 intl units oral tablet See Instructions, 1 tablet By Mouth twice daily, # 60 tablet, 11 Refills, Maintenance, 10/28/21 10:33:00 EST, Tablet, [facility]/pharmacy #2024, 1 tablet By Mouth twice daily, 165, cm, 10/25/21 17:56:00 EST, Height, 54.5, kg, 10/25/21 17:05:00 EST, Dry Weight Start Date: 10/28/21 Status: Ordered Citrate of Magnesia 8.85% oral liquid See Instructions, 30 mL By Mouth Once daily as needed for constipation, # 300 mL, 1 Refills, Soft Stop, 10/02/21 17:13:00 EST, Liquid, [facility]/pharmacy #2024, Partial fill upon patient request if the prescription is for a schedule II opioid drug., 30 mL B... Start Date: 10/02/21 Status: Ordered cyclobenzaprine 10 mg oral tablet 1, tablet, By Mouth, Daily, PRN, # 30 tablet, Refills 11, NEEDED FOR PAIN, Route to Pharmacy Electronically, [facility], 165, cm, 10/25/21 17:56:00 EST, Height, 54.5, kg, 10/25/21 17:05:00 EST, Dry Weight Start Date: 11/06/21 Status: Ordered docusate sodium 100 mg oral capsule 2 capsule, By Mouth, 2 times a day, PRN NEEDED FOR CONSTIPATION FOR, # 120 capsule, 11 Refills, Maintenance, 11/21/20 16:36:00 EST, [facility], 165, cm, 05/17/20 16:00:00 EDT, Height, 66.5, kg, 09/21/20 8:46:00 EST, Dry Weight Start Date: 11/21/20 Stop Date: 12/21/20 Status: Ordered duloxetine 20 mg oral enteric coated capsule 1 capsule = 20 mg, By Mouth, Daily, # 30 capsule, 11 Refills, Maintenance, 07/16/21 15:55:00 EDT, Capsule, [facility]/pharmacy #202, Partial fill upon patient request if the prescription is for a schedule II opioid drug., 165, cm, 06/05/21 10:01:00 EDT, Hei... Start Date: 07/16/21 Status: Ordered gabapentin 400 mg oral capsule 1, capsule, By Mouth, 3 times a day, # 90 each, Refills 11, Tot. Refills 11, Maintenance, 09/09/21 11:35:00 EST, Route to Pharmacy Electronically, [facility]/pharmacy #2024, dose increase, refill when needed, 165, [...] 12/06/21 17:00:00 EST, 11/05/21 8:24:00 EST, Tablet, [facility]/pharmacy #202... Start Date: 11/05/21 Stop Date: 12/06/21 Status: Ordered nystatin 980441 u/ml oral suspension 5 mL, By Mouth, 4 times a day, for 7 days, # 140 mL, 1 Refills, Physician Stop, [facility], 165, cm, 10/25/21 17:56:00 EST, Height, 54.5, kg, 10/25/21 17:05:00 EST, Dry Weight Start Date: 11/05/21 Stop Date: 11/12/21 Status: Ordered oxyCODONE 10 mg oral tablet 2 tablet = 20 mg, By Mouth, Every 4 hours, PRN as needed for pain, 28 day prescription patient may fill for less than quantity prescribed, # 224 tablet, 0 Refills, Acute 12/06/21 17:00:00 EST, 11/05/21 8:24:00 EST, Tablet, [facility]/pharmacy #2025, refill... Start Date: 11/05/21 Stop Date: [...] 10 J44.9, PLEASE BILL THROUGH MED B [id number], 165, cm, 06/05/21 10:01:00 EDT, Height, 61.4, [...]
--- OUTSIDE RECORDS SUMMARY | 2024-05-04 13:22 | XMS_ITS | Continuity of Care Document ---
Author Organization [facility] Address [address] [place] [address]- Care Team Providers Care Instructional Support Assistant Name Role Phone Declan Muller MD Primary Care Physician Encounter [facility] Date(s): 01/06/23 - 02/11/23 [facility] [address] [place], [place] [address] Attending Physician: Declan Muller MD Allergies, [...] (oldterm) 13 08/19/08 Given 1Result Comment: [facility] [id number] 2Result Comment: [06/22/2018] given at [facility] 3Location History: [facility] 4Location History: [facility] 5Admin Note: done @ clinic 6Admin Note: given w/out incident/VIS given 7Result Comment: [id number], [id number] 8Result Comment: DONE AT [facility] 10Result Comment: [07/21/2014] given w/out incident 11Admin Note: [facility] INFO GIVEN TO PATIENT 12Result Comment: lot #[id number] 13Admin Note: [facility] albuterol 0.083% inhalation solution 3 mL = 2.5 mg, Inhalation, Every 6 hours, PRN for wheezing, # 360 mL, 8 Refills, Maintenance, 07/07/19 14:14:00 EDT, Solution, ICD 10 J44.9, PLEASE BILL THROUGH MED B [id number] Start Date: 07/07/19 Status: Ordered albuterol 90 [...] 11:34:00 EDT, Suspension, Route to Pharmacy Electronically, [id number], [facility]/pharmacy #2025,... Start Date: 03/06/20 Status: Ordered calcium-vitamin D 600 mg-400 intl units oral tablet 1 tablet, By Mouth, 2 times a day, # 180 tablet, 1 Refills, Maintenance, 10/07/22 11:54:00 EST, [facility], 90, TAKE 1 TABLET BY MOUTH TWICE [...] 11 Refills,Maintenance, 08/19/22 11:00:00 EDT, EC Tablet, [facility]/pharmacy #2025, Partial fill upon patient request if [...] capsule, 5 Refills, Maintenance, 07/30/22 11:39:00 EDT, [facility]/pharmacy #0447, 165, cm, 04/17/22 13:32:00 EDT, Height, 60.6,kg, 04/18/22 8:40:00 EDT, Dry Weight Start Date: 07/30/22 Stop Date: 01/26/23 Status: Ordered duloxetine 30 mg oral enteric coated capsule 1 capsule = 30 mg, By Mouth, Daily, # 30 capsule, 11 Refills, Maintenance, 12/15/22 9:46:00 EST, [facility]apsule[facility] Partial fill upon patient request if the prescription is for a schedule II opioid drug., 165, cm, 10/09/22 11:32:00 EST, Heig... Start Date: 12/15/22 Status: Ordered gabapentin 400 mg oral capsule 1, capsule, By Mouth, 3 times a day, # 90 capsule, Refills 11, Maintenance, 10/07/22 13:28:00 EST, Route to Pharmacy Electronically, [facility], 165, cm, 08/26/22 11:06:00 EST, Height, 64.7, [...] Refills, Maintenance, 10/15/22 9:58:00 EST, [facility], 165, cm, 10/09/22 11:32:00 EST, Height, 64.7, [...] 01/19/23 Stop Date: 01/20/24 Status: Ordered nystatin 719492 u/ml oral suspension 5 mL, By Mouth, 4 times a day, # 480 mL, 1 Refills, [facility], 165, cm, 03/28/22 11:14:00 EDT, Height, 60.4, [...] 10 J44.9, PLEASE BILL THROUGH MED B [id number], 165, cm, 06/05/21 10:01:00 EDT, Height, 61.4, [...] Care Team Personnel Name: Joelle Castillo Position: [facility] Onco RN Member Role: Primary Care Nurse Name: Marilee Pitts RN Position: [facility] RN Member Role: Primary Care Nurse Name: Shawnee Schafer RN Position: [facility] SN RN Member Role: Primary Care Nurse Name: Declan Muller MD Position: [facility] Primary Care Physician Member Role: PCP Address: Address: [address] [place] [address] Adult & Pediatric Medicine [address] Name: Aylin Byrne RN Position: [facility] [...] Related Persons Name: JANICE TAYLOR Address: [address] [address]
--- OUTSIDE RECORDS SUMMARY | 2024-05-04 13:22 | XMS_ITS | Continuity of Care Document ---
Author Organization [facility] Address [address] [place] [address]- Care Team Providers Care Press Bucker Name Role Phone Declan Muller MD Primary Care Physician [phone] Encounter [facility] Date(s): 06/14/20 - 06/21/20 [facility] [address] [place] [address]- [facility] Attending Physician: Declan Muller MD Allergies, [...] Note: given w/out incident/VIS given 7Result Comment: [id number], [id number] [facility] 9Result Comment: [07/21/2014] given w/out incident 10Admin Note: [facility] INFO GIVEN TO PATIENT 11Result Comment: lot #[id number] 12Admin Note: [facility] albuterol 0.083% inhalation solution 3 mL = 2.5 mg, Inhalation, Every 6 hours, PRN for wheezing, # 360 mL, 8 Refills, Maintenance, 07/07/19 14:14:00 EDT, Solution, ICD 10 J44.9, PLEASE BILL THROUGH MED B [id number] Start Date: 07/07/19 Status: Ordered alendronate 70 [...] 11:34:00 EDT, Suspension, Route to Pharmacy Electronically, [id number], [facility]/pharmacy #5,... Start Date: 03/06/20 Status: Ordered [...] Replace Required Details, Route to Pharmacy Electronically, [facility]/pharmacy #2024... Start Date: 03/02/20 Status: Ordered [...] 02/22/20 10:31:00 EDT, Route to Pharmacy Electronically, [facility]/pharmacy #2024, 165, cm, 01/27/20 8:11:00 EDT, Height, 53.6, kg, 10/14/19 10:56:00 EST, Dry... Start Date: 02/22/20 Status: Ordered lactulose 10 gm/15 ml oral syrup 30 mL = 20 Gm, By Mouth, Daily, PRN as needed for constipation, for 30 days, # 1,000 mL, 2 Refills,Acute 08/15/20 16:25:00 EDT, 05/17/20 16:25:00 EDT, Syrup, [facility]/pharmacy #2025, 30 mL By Mouth Daily,x30 [...] 07/16/20 17:00:00 EDT, 06/18/20 8:51:00 EDT, Tablet, [facility]/pharmacy #202... Start Date: 06/18/20 Stop Date: 07/16/20 [...] 07/16/20 17:00:00 EDT, 06/18/20 8:51:00 EDT, Tablet, [facility]/pharmacy #2025, 165, cm... Start Date: 06/18/20 Stop Date: [...] Refills, Acute, 05/22/20 11:58:00 EDT, [facility], 165, cm, 05/17/20 16:00:00 EDT, Height, 67, [...] Maintenance, 03/02/2017:09:00 EDT, Route to Pharmacy Electronically, [facility]/pharmacy #2024 Tablet, 165, cm, 01/27/20 8:11:00 EDT, Height, 53.6, kg, 10/14/19 10:56:00 EST, Dry... Start Date: 03/02/20 Status: Ordered triamcinolone 0.1% topical cream 1 application, Topically, 3 times a day, PRN psoriasis rash, # 60 Gm, 5 Refills, Acute 01/01/21 10:47:00 EDT, 01/02/20 10:46:00 EDT, Cream, [facility]/pharmacy #2024, 1 application Topically 3 times [...] 10 J44.9, PLEASE BILL THROUGH MED B [id number], 165, cm, 01/27/20 8:11:00 EDT, Height, 53.6, [...]
--- OUTSIDE RECORDS SUMMARY | 2024-05-04 13:22 | XMS_ITS | Continuity of Care Document ---
Author Organization [facility] Address [address] [place] [address]- Care Team Providers Care Infrastructure Developer Name Role Phone Renzo GRAHAM, Declan Hou Primary Care Physician [facility] Date(s): 05/22/20 - 06/21/20 [facility] [address] [place] [address]- [facility] Allergies, Adverse Reactions, Alerts Substance Reaction [...] Note: given w/out incident/VIS given 7Result Comment: [id number], [id number] [facility] 9Result Comment: [07/21/2014] given w/out incident 10Admin Note: [facility] INFO GIVEN TO PATIENT 11Result Comment: lot #[id number] 12Admin Note: [facility] albuterol 0.083% inhalation solution 3 mL = 2.5 mg, Inhalation, Every 6 hours, PRN for wheezing, # 360 mL, 8 Refills, Maintenance, 07/07/19 14:14:00 EDT, Solution, ICD 10 J44.9, PLEASE BILL THROUGH MED B [id number] Start Date: 07/07/19 Status: Ordered alendronate 70 [...] 11:34:00 EDT, Suspension, Route to Pharmacy Electronically, [id number], [facility]/pharmacy #2024,... Start Date: 03/06/20 Status: Ordered calcium-vitamin [...] Required Details, Route to Pharmacy Electronically, [facility]/pharmacy #2024... Start Date: 03/02/20 Status: Ordered duloxetine [...] 10:31:00 EDT, Route to Pharmacy Electronically, [facility]/pharmacy #2024, 165, cm, 01/27/20 8:11:00 EDT, Height, 53.6, kg, 10/14/19 10:56:00 EST, Dry... Start Date: 02/22/20 Status: Ordered lactulose 10 gm/15 ml oral syrup 30 mL = 20 Gm, By Mouth, Daily, PRN as needed for constipation, for 30 days, # 1,000 mL, 2 Refills,Acute 08/15/20 16:25:00 EDT, 05/17/20 16:25:00 EDT, Syrup, [facility]/pharmacy #2025, 30 mL By Mouth Daily,x30 days,PRN:as [...] 07/16/20 17:00:00 EDT, 06/18/20 8:51:00 EDT, Tablet, [facility]/pharmacy #202... Start Date: 06/18/20 Stop Date: 07/16/20 Status: Ordered naproxen 500 mg oral tablet 1 tablet = 500 mg, By Mouth, 2 times a day, PRN joint or muscle pain, # 60 tablet, 11 Refills, Acute 06/11/21 11:08:00 EDT, 06/11/20 11:08:00 EDT, Tablet, [facility]/pharmacy #2025, 165, cm, 05/17/20 16:00:00 EDT, Height, [...] 07/16/20 17:00:00 EDT, 06/18/20 8:51:00 EDT, Tablet, [facility]/pharmacy #2025, 165, cm... Start Date: 06/18/20 Stop [...] Refills, Acute, 05/22/20 11:58:00 EDT, [facility], 165, cm, 05/17/20 16:00:00 EDT, Height, 67, kg, 05/01/20 10:40:00 EDT, Dry Weight Start Date: 05/22/20 Status: Ordered Readi-Cat 2 oral suspension See Instructions, As per recommendations of radiology 1 the evening before when the morning of procedure, # 2 pack/packet, 0 Refills, Maintenance, 05/17/20 16:25:00 EDT, [facility]/pharmacy #202, As per recommendations of radiology 1 [...] 03/02/2017:09:00 EDT, Route to Pharmacy Electronically, [facility]/pharmacy #2024 Tablet, 165, cm, 01/27/20 8:11:00 EDT, Height, 53.6, kg, 10/14/19 10:56:00 EST, Dry... Start Date: 03/02/20 Status: Ordered triamcinolone 0.1% topical cream 1 application, Topically, 3 times a day, PRN psoriasis rash, # 60 Gm, 5 Refills, Acute 01/01/21 10:47:00 EDT, 01/02/20 10:46:00 EDT, Cream, [facility]/pharmacy #2024, 1 application Topically 3 times a [...] 10 J44.9, PLEASE BILL THROUGH MED B [id number], 165, cm, 01/27/20 8:11:00 EDT, Height, 53.6, [...]
--- OUTSIDE RECORDS SUMMARY | 2024-05-04 13:22 | XMS_ITS | Continuity of Care Document ---
Author Organization [facility] Address [address] [place] [address]- Care Team Providers Care Circulation Crew Leader Name Role Phone Renzo GRAHAM, Declan Hou Primary Care Physician [phone] Encounter [facility] Date(s): 09/11/21 - 10/11/21 [facility] [address] [place] [address]- Allergies, Adverse Reactions, Alerts Substance Reaction Severity [...] 08/19/08 Given 1Result Comment: DONE AT [facility] 2Result Comment: [06/22/2018] given at [facility] 3Location History: [facility] 5Admin Note: done @ clinic 6Admin Note: given w/out incident/VIS given 7Result Comment: [id number], [id number] 8[facility] 9Result Comment: [07/21/2014] given w/out incident 10Admin Note: [facility] INFO GIVEN TO PATIENT 11Result Comment: lot #[id number] 12Admin Note: [facility] albuterol 0.083% inhalation solution 3 mL = 2.5 mg, Inhalation, Every 6 hours, PRN for wheezing, # 360 mL, 8 Refills, Maintenance, 07/07/19 14:14:00 EDT, Solution, ICD 10 J44.9, PLEASE BILL THROUGH MED B [id number] Start Date: 07/07/19 Status: Ordered alendronate 70 mg oral tablet 1 tablet = 70 mg, By Mouth, Every week, # 4 tablet, 0 Refills, Maintenance, 04/02/20 11:08:00 EDT, Tablet Start Date: 04/02/20 Status: Ordered Ativan 1 mg oral tablet 1 tablet = 1 mg, By Mouth, 3 times a day, PRN for anxiety, # 84 each, 0 Refills, Acute 11/04/21 17:00:00 EST, 10/04/21 9:15:00 EST, Tablet, [facility]/pharmacy #2024, 165, cm, 09/10/21 10:03:00 EST, Height,61.6, kg, 09/10/21 10:03:00 EST, Dry Weight Start Date: 10/04/21 Stop Date: 11/04/21 Status: Ordered azithromycin 250 mg oral tablet [...] Refills, Maintenance, 04/24/20 16:53:00 EDT, Solution, [facility]/pharmacy #2024, ICD Code J44.9, 165, cm, 03/12/20 8:39:00EDT, Height, 70.7, kg, 03/08/20 16:16:00 EDT, Dry... Start Date: 04/24/20 Status: Ordered budesonide 0.25 mg/2 mL inhalation suspension 0.25 mg, 2, mL, Neb, 2 times a day, for COPD J44.9. rinse mouth after use, # 120 mL, Refills 6, Tot. Refills 6, Maintenance, 03/06/20 11:34:00 EDT, Suspension, Route to Pharmacy Electronically, [id number], [facility]/pharmacy #2024,... Start Date: 03/06/20 Status: Ordered calcium-vitamin D 600 mg-400 intl units oral tablet See Instructions, 1 tablet By Mouth twice daily, # 60 tablet, 11 Refills, Maintenance, 07/04/20 15:50:00 EDT, Tablet, [facility]/pharmacy #2024, 1 tablet By Mouth twice daily, 165, cm, 05/17/20 16:00:00 EDT, Height, 67, kg, 05/01/20 10:40:00 EDT, Dry Weight Start Date: 07/04/20 Status: Ordered Citrate of Magnesia 8.85% oral liquid See Instructions, 30 mL By Mouth Once daily as needed for constipation, # 300 mL, 1 Refills, Soft Stop, 10/02/21 17:13:00 EST, Liquid, [facility]/pharmacy #2024, Partial fill upon patient request if the prescription is for a schedule II opioid drug., 30 mL B... Start Date: 10/02/21 Status: Ordered cyclobenzaprine 10 mg oral tablet 1, tablet, By Mouth, 2 times a day, PRN, # 60 each, Refills 5, Tot. Refills 5, Acute 11/21/21 12:24:00 EST, NEEDED FOR PAIN, 11/21/20 12:23:00 EST, Route to Pharmacy Electronically, [facility]/pharmacy #2024, 165, cm, 05/17/20 16:00:00 EDT, Height, 66.5,... Start Date: 11/21/20 Stop Date: 11/21/21 Status: Ordered docusate sodium 100 mg oral capsule 2 capsule, By Mouth, 2 times a day, PRN NEEDED FOR CONSTIPATION FOR, # 120 capsule, 11 Refills, Maintenance, 11/21/20 16:36:00 EST, [facility] STORE [id number], 165, cm, 05/17/20 16:00:00 EDT, Height, 66.5, kg, 09/21/20 8:46:00 EST, Dry Weight Start Date: 11/21/20 Stop Date: 12/21/20 Status: Ordered duloxetine 20 mg oral enteric coated capsule 1 capsule = 20 mg, By Mouth, Daily, # 30 capsule, 11 Refills, Maintenance, 07/16/21 15:55:00 EDT, Capsule, [facility]/pharmacy #2025, Partial fill upon patient request if the prescription is for a schedule II opioid drug., 165, cm, 06/05/21 10:01:00 EDT, Hei... Start Date: 07/16/21 Status: Ordered gabapentin 400 mg oral capsule 1, capsule, By Mouth, 3 times a day, # 90 each, Refills 11, Tot. Refills 11, Maintenance, 09/09/21 11:35:00 EST, Route to Pharmacy Electronically, [facility]/pharmacy #2025, dose increase, refill when needed, 165, cm, 09/09/21 11:19:00 EST, Height, 61.4, kg,... Start Date: 09/09/21 Status: Ordered methadone 10 mg oral tablet See Instructions, PRN for pain, 2 tablets By Mouth in the morning, 1 tablet in the afternoon, and 3tablets by mouth in the evening 28 day schedule, # 168 each, 0 Refills, Acute 11/04/21 17:00:00 EST, 10/04/21 9:15:00 EST, Tablet, [facility]/pharmacy #202... Start Date: 10/04/21 Stop Date: 11/04/21 Status: Ordered oxyCODONE 10 mg oral tablet 2 tablet = 20 mg, By Mouth, Every 4 hours, PRN as needed for pain, 28 day prescription patient may fill for less than quantity prescribed, # 224 tablet, 0 Refills, Acute 11/04/21 17:00:00 EST, 10/04/21 9:15:00 EST, Tablet, [facility]/pharmacy #2024, refill... Start Date: 10/04/21 Stop Date: 11/04/21 Status: Ordered pantoprazole 40 mg oral delayed [...] 10 J44.9, PLEASE BILL THROUGH MED B [id number], 165, cm, 06/05/21 10:01:00 EDT, Height, 61.4, [...]
--- OUTSIDE RECORDS SUMMARY | 2024-05-04 13:22 | XMS_ITS | Continuity of Care Document ---
Author Organization [facility] Address [address] [place] [address]- Care Team Providers Care Glass Frame Fitter Name Role Phone Declan Muller MD Primary Care Physician Encounter [facility] Date(s): 06/06/21 - 07/06/21 [facility] [address], [place] [address] Attending Physician: Kaleb De Leon Admitting Physician: Kaleb De Leon Referring Physician: Kaleb De Leon Allergies, Adverse Reactions, Alerts Substance Reaction Severity [...] [facility] 2Result Comment: [06/22/2018[facility] 5Admin Note: done @ clinic 6Admin Note: given w/out incident/VIS given 7Result Comment: [id number], [id number] [facility] 9Result Comment: [07/21/2014] given w/out incident 10Admin Note: [facility] INFO GIVEN TO PATIENT 11Result Comment: lot #[id number] 12Admin Note: [facility] albuterol 0.083% inhalation solution 3 mL = 2.5 mg, Inhalation, Every 6 hours, PRN for wheezing, # 360 mL, 8 Refills, Maintenance, 07/07/19 14:14:00 EDT, Solution, ICD 10 J44.9, PLEASE BILL THROUGH MED B [id number] Start Date: 07/07/19 Status: Ordered alendronate 70 [...] 11:34:00 EDT, Suspension, Route to Pharmacy Electronically, [id number], [facility]/pharmacy #2024,... Start Date: 03/06/20 Status: Ordered calcium-vitamin D 600 mg-400 intl units oral tablet See Instructions, 1 tablet By Mouth twice daily, # 60 tablet, 11 Refills, Maintenance, 07/04/20 15:50:00 EDT, Tablet, [facility]/pharmacy #2024, 1 [...] 12:23:00 EST, Route to Pharmacy Electronically, [facility]/pharmacy #2024, 165, cm, 05/17/20 16:00:00 EDT, Height, 66.5,... Start Date: 11/21/20 Stop Date: 11/21/21 Status: Ordered docusate sodium 100 mg oral capsule 2 capsule, By Mouth, 2 times a day, PRN NEEDED FOR CONSTIPATION FOR, # 120 capsule, 11 Refills, Maintenance, 11/21/20 16:36:00 EST, [id number], 165, cm, 05/17/20 16:00:00 EDT, Height, 66.5, [...] 01/30/21 11:23:00 EDT, Route to Pharmacy Electronically, [facility] STORE [facility], 165, cm, 12/20/20 10:40:00 EST, Height, 66.7, [...] 07/15/21 17:00:00 EDT, 06/14/21 8:22:00 EDT, Tablet, [facility]/pharmacy #202... Start Date: 06/14/21 Stop Date: 07/15/21 Status: Ordered nystatin 617935 u/ml oral suspension 5 mL = 500,000 units, By Mouth, 4 times a day, for 7 days, swish and swallow, # 140 mL, 1 Refills, Acute 07/15/21 12:40:00 EDT, 07/01/21 12:40:00 EDT, Suspension, [facility]/pharmacy #2025, Partial fill [...] 10 J44.9, PLEASE BILL THROUGH MED B [id number], 165, cm, 12/20/20 10:40:00 EST, Height, 66.7, [...]
--- OUTSIDE RECORDS SUMMARY | 2024-05-04 13:22 | XMS_ITS | Continuity of Care Document ---
Author Organization [facility] Address [address] [place] [address]- Care Team Providers Care Wine Cellar Worker Name Role Phone Renzo GRAHAM, Declan Hou Primary Care Physician [facility] Date[facility]s): 11/20/23 - 12/20/[address] [address] Allergies, Adverse Reactions, Alerts Substance Reaction [...] 08/19/08 Given 1Result Comment: [facility] [id number] 2Result Comment: [06/22/2018] given at [facility] 3Location History: [facility] 4Location History: [facility] 5Admin Note: done @ clinic 6Admin Note: given w/out incident/VIS given 7Result Comment: [id number], [id number] 8Result Comment: DONE AT [facility] 10Result Comment: [07/21/2014] given w/out incident 11Admin Note: [facility] INFO GIVEN TO PATIENT 12Result Comment: lot #[id number] 13Admin Note: [facility] albuterol 0.083% inhalation solution 3 mL = 2.5 mg, Inhalation, Every 6 hours, PRN for wheezing, # 360 mL, 8 Refills, Maintenance, 07/07/19 14:14:00 EDT, Solution, ICD 10 J44.9, PLEASE BILL THROUGH MED B [id number] Start Date: 07/07/19 Status: Ordered albuterol 90 [...] 11:34:00 EDT, Suspension, Route to Pharmacy Electronically, [id number], [facility]/pharmacy #2025,... Start Date: 03/06/20 Status: Ordered calcium-vitamin D 600 mg-400 intl units oral tablet 1 tablet, By Mouth, 2 times a day, # 180 tablet, 1 Refills, Maintenance, 10/07/22 11:54:00 EST, [facility], [facility], TAKE 1 TABLET BY MOUTH TWICE A DAY, 165, cm, 08/26/22 11:06:00 EST, Height, 64.7, kg, 10/03/22 8:14:00 EST, Dry Weight Start Date: 10/07/22 Status: Ordered cetirizine 10 mg oral tablet 1 tablet, By Mouth, Daily, PRN NEEDED FOR SINUS SYMPTOMS, # 90 tablet, 1 Refills, Maintenance, 12/09/23 1:28:00 EST, [facility]/pharmacy #2024, 165, cm, 09/30/23 10:35:00 EST, Height, 53.7, kg, 11/27/23 8:47:00 EST, Dry Weight Start Date: 12/09/23 Status: Ordered cyclobenzaprine 10 mg oral tablet 1/2 OR 1 TABLET, By Mouth, 2 times a day, PRN, # 60 tablet, Refills 5, Tot. Refills 5, Maintenance, NEEDED FOR MUSCLE PAIN OR SPASM, 09/24/23 14:08:00 EST, Route to Pharmacy Electronically, [facility]/pharmacy #5, 165, cm, 09/04/23 8:51:00 EST, [...] 11 Refills,Maintenance, 09/30/23 11:27:00 EST, EC Tablet, [facility]/pharmacy #2025, Partial fill upon patient request [...] capsule, 11 Refills, Maintenance, 03/03/23 10:03:00 EDT, [facility]/pharmacy #202, 165, cm, 01/21/23 10:40:00 EDT, Height, 55.8, kg, 01/23/23 8:24:00 EDT, Dry Weight Start Date: 03/03/23 Stop Date: 02/26/24 Status: Ordered duloxetine 30 mg oral enteric coated capsule 1 capsule = 30 mg, By Mouth, Daily, # 30 capsule, 11 Refills, Maintenance, 09/14/23 16:34:00 EST, Capsule, [facility]/pharmacy #2025, Partial fill upon patient request if the prescription is for a schedule II opioid drug., 165, cm, 09/04/23 8:51:00 EST, Heig... Start Date: 09/14/23 Status: Ordered gabapentin 400 mg oral capsule 1, capsule, By Mouth, 3 times a day, # 90 capsule, Refills 11, Maintenance, 10/07/22 13:28:00 EST, Route to Pharmacy Electronically, [facility] ST[facility], 165, cm, 08/26/22 11:06:00 EST, Height, 64.7, [...] Refills, Maintenance, 10/15/22 9:58:00 EST, [facility], 165, cm, 10/09/22 11:32:00 EST, Height, 64.7, [...] 09/24/24 14:08:00 EST, 09/24/23 14:07:00 EST, Tablet, [facility]/pharmacy #20... Start Date: 09/24/23 Stop Date: 09/24/24 Status: Ordered nystatin 182412 u/ml oral suspension 5 mL, By Mouth, 4 times a day, # 480 mL, 1 Refills, Physician Stop 09/30/24 11:03:00 EST, 09/30/23 11:02:00 EST, [facility]/pharmacy #2025, 165, cm, 09/30/23 10:35:00 EST, Height, 55, kg, 09/30/23 10:35:00 EST, Dry Weight Start Date: 09/30/23 Stop Date: 09/30/24 Status: Ordered pantoprazole 40 mg oral delayed [...] 10 J44.9, PLEASE BILL THROUGH MED B [id number], 165, cm, 06/05/21 10:01:00 EDT, Height, 61.4, [...] Care Team Personnel Name: Joelle Castillo Position: [facility] Onco RN Member Role: Primary Care Nurse Name: Shawnee Schafer RN Position: [facility] SN RN Member Role: Primary Care Nurse Name: Declan Muller MD Position: [facility] Physician - Primary Care Member Role: PCP Address: Address: [address] [place] [address] Adult & [place] [address]- Name: Aylin Byrne RN Position: [facility] RN Member Role: Primary Care Nurse Name: Edilma Metzger RN Position: [facility] RN Member Role: Primary Care Nurse Name: Katherine Bond RN Position: [facility] SN RN Member Role: Primary Care Nurse Name: Gena Chavez RN Position: [facility] business operations specialist Member Role: [employer] Truck Driver Name: Kerry Negron RN Position: [facility] RN Member Role: Primary Care Nurse Name: Joslyn Dodge RN Position: [facility] SN RN Member Role: Primary Care Nurse Name: Missy Avilez RN Position: [facility] Onco RN Member Role: Primary Care Nurse Name: Katina Marcus RN Position: [facility] RN Member Role: Primary Care Nurse Name: Sienna Horne RN Position: [facility] RN Member Role: Primary Care Nurse Name: Ernestine Thomas RN Position: [facility] RN Member Role: Primary Care Nurse Care Team Related Persons Name: JANICE TAYLOR Address: [address] [address]
--- OUTSIDE RECORDS SUMMARY | 2024-05-04 13:22 | XMS_ITS | Continuity of Care Document ---
Author Organization [facility] Address [address] [place] [address]- Care Team Providers Care Human Resources Compliance Manager Name Role Phone Renzo GRAHAM, Declan Hou Primary Care Physician [facility] Date[facility]s): 05/09/20 - 06/08/20 [facility] [address] [place] [address]- [facility] Allergies, Adverse Reactions, Alerts Substance [...] Note: given w/out incident/VIS given 7Result Comment: [id number], [id number] [facility] 9Result Comment: [07/21/2014] given w/out incident 10Admin Note: [facility] INFO GIVEN TO PATIENT 11Result Comment: lot #[id number] 12Admin Note: [facility] albuterol 0.083% inhalation solution 3 mL = 2.5 mg, Inhalation, Every 6 hours, PRN for wheezing, # 360 mL, 8 Refills, Maintenance, 07/07/19 14:14:00 EDT, Solution, ICD 10 J44.9, PLEASE BILL THROUGH MED B [id number] Start Date: 07/07/19 Status: Ordered alendronate 70 [...] 11:34:00 EDT, Suspension, Route to Pharmacy Electronically, [id number], [facility]/pharmacy #2024,... Start Date: 03/06/20 Status: [...] Replace Required Details, Route to Pharmacy Electronically, [facility]/pharmacy #2024... Start Date: 03/02/20 Status: Ordered [...] 02/22/20 10:31:00 EDT, Route to Pharmacy Electronically, [facility]/pharmacy #2024, 165, cm, 01/27/20 8:11:00 EDT, Height, 53.6, kg, 10/14/19 10:56:00 EST, Dry... Start Date: 02/22/20 Status: Ordered lactulose 10 gm/15 ml oral syrup 30 mL = 20 Gm, By Mouth, Daily, PRN as needed for constipation, for 30 days, # 1,000 mL, 2 Refills,Acute 08/15/20 16:25:00 EDT, 05/17/20 16:25:00 EDT, Syrup, [facility]/pharmacy #2024, 30 mL By Mouth Daily,x30 [...] 06/18/20 17:00:00 EDT, 05/21/20 10:23:00 EDT, Tablet, [facility]/pharmacy #20... Start Date: 05/21/20 Stop Date: 06/18/20 Status: Ordered oxyCODONE 10 mg oral tablet 2 tablet = 20 mg, By Mouth, Every 4 hours, PRN as needed for pain, 28 day prescription patient may fill for less than quantity prescribed, # 224 tablet, 0 Refills, Acute 06/18/20 17:00:00 EDT, 05/21/20 10:23:00 EDT, Tablet, [facility]/pharmacy #5, 165, c... Start Date: 05/21/20 Stop [...] Refills, Acute, 05/22/20 11:58:00 EDT, [facility], 165, cm, 05/17/20 16:00:00 EDT, Height, 67, kg, 05/01/20 10:40:00 EDT, Dry Weight Start Date: 05/22/20 Status: Ordered Readi-Cat 2 oral suspension See Instructions, As per recommendations of radiology 1 the evening before when the morning of procedure, # 2 pack/packet, 0 Refills, Maintenance, 05/17/20 16:25:00 EDT, [facility]/pharmacy #202, As per recommendations of radiology 1 [...] Maintenance, 03/02/2017:09:00 EDT, Route to Pharmacy Electronically, [facility]/pharmacy #2024 Tablet, 165, cm, 01/27/20 8:11:00 EDT, Height, 53.6, kg, 10/14/19 10:56:00 EST, Dry... Start Date: 03/02/20 Status: Ordered triamcinolone 0.1% topical cream 1 application, Topically, 3 times a day, PRN psoriasis rash, # 60 Gm, 5 Refills, Acute 01/01/21 10:47:00 EDT, 01/02/20 10:46:00 EDT, Cream, [facility]/pharmacy #2024, 1 application Topically 3 times a day,PRN:psoriasis rash, 165, cm, 11/17/19 10:08:00 EST, H... Start Date: 01/02/20 Stop Date: 01/01/21 Status: Ordered Ventolin HFA 108 mcg/inh inhalation aerosol with adapter 2 puffs, Inhalation, 4 times a day, PRN for wheezing, # 18 Gm, 11 Refills, Maintenance, 01/13/20 11:40:00 EDT, Aerosol, [facility]/pharmacy #2024, 165, cm, 11/17/19 10:08:00 EST, Height, 53.6, kg, 10/14/19 10:56:00 EST, Dry Weight Start Date: 01/13/20 Status: Ordered Yupelri 175 mcg/3 mL inhalation solution = 175 mcg, Inhalation, Daily, j44.9, # 360 mL, 6 Refills, Maintenance, 03/06/20 11:37:00 EDT, [facility]/pharmacy #2024, ICD 10 J44.9, PLEASE BILL THROUGH MED B [id number], 165, cm, 01/27/20 8:11:00 EDT, Height, 53.6, [...]
--- OUTSIDE RECORDS SUMMARY | 2024-05-04 13:22 | XMS_ITS | Continuity of Care Document ---
Author Organization [facility] Address [address] [address]- Care Team Providers Care Loan Officer Assistant Name Role Phone Renzo GRAHAM, Declan Hou Primary Care Physician [facility]counter [facility] Date(s): 05/21/20 - 06/20/20 [facility] [address] [address]- [place] Attending Physician: Kaleb De Leon Admitting [...] 08/19/08 Given 1Result Comment: DONE AT [facility] 2Result Comment: [06/22/2018[facility] 5Admin Note: done @ clinic 6Admin Note: given w/out incident/VIS given 7Result Comment: [id number], [id number] [facility] 9Result Comment: [07/21/2014] given w/out incident 10Admin Note: [facility] INFO GIVEN TO PATIENT 11Result Comment: lot #[id number] 12Admin Note: [facility] albuterol 0.083% inhalation solution 3 mL = 2.5 mg, Inhalation, Every 6 hours, PRN for wheezing, # 360 mL, 8 Refills, Maintenance, 07/07/19 14:14:00 EDT, Solution, ICD 10 J44.9, PLEASE BILL THROUGH MED B [id number] Start Date: 07/07/19 Status: Ordered alendronate 70 [...] 11:34:00 EDT, Suspension, Route to Pharmacy Electronically, [id number], [facility]/pharmacy #2024,... Start Date: 03/06/20 Status: Ordered [...] Required Details, Route to Pharmacy Electronically, [facility]/pharmacy #2024... Start Date: 03/02/20 Status: Ordered [...] 10:31:00 EDT, Route to Pharmacy Electronically, [facility]/pharmacy #2024, 165, cm, 01/27/20 8:11:00 EDT, Height, 53.6, kg, 10/14/19 10:56:00 EST, Dry... Start Date: 02/22/20 Status: Ordered lactulose 10 gm/15 ml oral syrup 30 mL = 20 Gm, By Mouth, Daily, PRN as needed for constipation, for 30 days, # 1,000 mL, 2 Refills,Acute 10/28/20 16:25:00 EDT, 07/30/20 16:25:00 EDT, Syrup, [facility]/pharmacy #2025, 30 mL By Mouth [...] 17:00:00 EDT, 06/18/20 8:51:00 EDT, Tablet, [facility]/pharmacy #202... Start Date: 06/18/20 Stop Date: 07/16/20 Status: Ordered naproxen 500 mg oral tablet 1 tablet = 500 mg, By Mouth, 2 times a day, PRN joint or muscle pain, # 60 tablet, 11 Refills, Acute 06/11/21 11:08:00 EDT, 06/11/20 11:08:00 EDT, Tablet, [facility]/pharmacy #2025, 165, cm, 05/17/20 16:00:00 EDT, [...] 17:00:00 EDT, 06/18/20 8:51:00 EDT, Tablet, [facility]/pharmacy #2025, 165, cm... Start Date: 06/18/20 Stop [...] Refills, Acute, 05/22/20 11:58:00 EDT, [facility], [facility], cm, 05/17/20 16:00:00 EDT, Height, 67, kg, 05/01/20 10:40:00 EDT, Dry Weight Start Date: 05/22/20 Status: Ordered Readi-Cat 2 oral suspension See Instructions, As per recommendations of radiology 1 the evening before when the morning of procedure, # 2 pack/packet, 0 Refills, Maintenance, 05/17/20 16:25:00 EDT, [facility]/pharmacy #2024, As per recommendations of radiology [...] 03/02/2017:09:00 EDT, Route to Pharmacy Electronically, [facility]/pharmacy #2024 Tablet, 165, cm, 01/27/20 8:11:00 EDT, Height, 53.6, kg, 10/14/19 10:56:00 EST, Dry... Start Date: 03/02/20 Status: Ordered triamcinolone 0.1% topical cream 1 application, Topically, 3 times a day, PRN psoriasis rash, # 60 Gm, 5 Refills, Acute 01/01/21 10:47:00 EDT, 01/02/20 10:46:00 EDT, Cream, [facility]/pharmacy #2024, 1 application Topically 3 [...] 10 J44.9, PLEASE BILL THROUGH MED B [id number], 165, cm, 01/27/20 8:11:00 EDT, Height, 53.6, [...]
--- OUTSIDE RECORDS SUMMARY | 2024-05-04 13:22 | XMS_ITS | Continuity of Care Document ---
Author Organization [facility] ter Address [address] [place] [address]- Care Team Providers Care Physiology Teacher Name Role Phone Declan Muller MD Primary Care Physician [phone] [place] [facility] [place] 06/03/[address] [address]- [facility] Attending Physician: Heide GRAHAM(Hem/Onc)Fercho Admitting Physician: Heide [facility] 2Result Comment: [06/22/2018[facility] 5Admin Note: done @ clinic 6Admin Note: given w/out incident/VIS given 7Result Comment: [id number], [id number] [facility] 9Result Comment: [07/21/2014] given w/out incident 10Admin Note: [facility] INFO GIVEN TO PATIENT 11Result Comment: lot #[id number] 12Admin Note: [facility] albuterol 0.083% inhalation solution 3 mL = 2.5 mg, Inhalation, Every 6 hours, PRN for wheezing, # 360 mL, 8 Refills, Maintenance, 07/07/19 14:14:00 EDT, Solution, ICD 10 J44.9, PLEASE BILL THROUGH MED B [id number] Start Date: 07/07/19 Status: Ordered alendronate 70 [...] 11:34:00 EDT, Suspension, Route to Pharmacy Electronically, [id number], [facility]/pharmacy #2024,... Start Date: [...] Replace Required Details, Route to Pharmacy Electronically, [facility]/pharmacy #2024... Start Date: 03/02/20 [...] 02/22/20 10:31:00 EDT, Route to Pharmacy Electronically, [facility]/pharmacy #2024, 165, cm, 01/27/20 8:11:00 EDT, Height, 53.6, kg, 10/14/19 10:56:00 EST, Dry... Start Date: 02/22/20 Status: Ordered lactulose 10 gm/15 ml oral syrup 30 mL = 20 Gm, By Mouth, Daily, PRN as needed for constipation, for 30 days, # 1,000 mL, 2 Refills,Acute 08/15/20 16:25:00 EDT, 05/17/20 16:25:00 EDT, Syrup, [facility]/pharmacy #2025, 30 mL By [...] 06/18/20 17:00:00 EDT, 05/21/20 10:23:00 EDT, Tablet, [facility]/pharmacy #20... Start Date: 05/21/20 Stop Date: 06/18/20 Status: Ordered oxyCODONE 10 mg oral tablet 2 tablet = 20 mg, By Mouth, Every 4 hours, PRN as needed for pain, 28 day prescription patient may fill for less than quantity prescribed, # 224 tablet, 0 Refills, Acute 06/18/20 17:00:00 EDT, 05/21/20 10:23:00 EDT, Tablet, [facility]/pharmacy #2025, 165, c... Start Date: 05/21/20 [...] Refills, Acute, 05/22/20 11:58:00 EDT, [facility], 165, cm, 05/17/20 16:00:00 EDT, Height, 67, kg, 05/01/20 10:40:00 EDT, Dry Weight Start Date: 05/22/20 Status: Ordered Readi-Cat 2 oral suspension See Instructions, As per recommendations of radiology 1 the evening before when the morning of procedure, # 2 pack/packet, 0 Refills, Maintenance, 05/17/20 16:25:00 EDT, [facility]/pharmacy #2025, As per recommendations of radiology 1 [...] Maintenance, 03/02/2017:09:00 EDT, Route to Pharmacy Electronically, [facility]/pharmacy #2024 Tablet, 165, cm, 01/27/20 8:11:00 EDT, Height, 53.6, kg, 10/14/19 10:56:00 EST, Dry... Start Date: 03/02/20 Status: Ordered triamcinolone 0.1% topical cream 1 application, Topically, 3 times a day, PRN psoriasis rash, # 60 Gm, 5 Refills, Acute 01/01/21 10:47:00 EDT, 01/02/20 10:46:00 EDT, Cream, [facility]/pharmacy #2024, 1 application Topically 3 times a day,PRN:psoriasis rash, 165, cm, 11/17/19 10:08:00 EST, H... Start Date: 01/02/20 Stop Date: 01/01/21 Status: Ordered Ventolin HFA 108 mcg/inh inhalation aerosol with adapter 2 puffs, Inhalation, 4 times a day, PRN for wheezing, # 18 Gm, 11 Refills, Maintenance, 01/13/20 11:40:00 EDT, Aerosol, [facility]/pharmacy #2025, 165, cm, 11/17/19 10:08:00 EST, Height, 53.6, kg, 10/14/19 10:56:00 EST, Dry Weight Start Date: 01/13/20 Status: Ordered Yupelri 175 mcg/3 mL inhalation solution = 175 mcg, Inhalation, Daily, j44.9, # 360 mL, 6 Refills, Maintenance, 03/06/20 11:37:00 EDT, [facility], ICD 10 J44.9, PLEASE BILL THROUGH MED B [id number], 165, cm, 01/27/20 8:11:00 EDT, Height, 53.6, [...]
--- OUTSIDE RECORDS SUMMARY | 2024-05-04 13:22 | XMS_ITS | Continuity of Care Document ---
Author Organization [facility] Address [address] [place] [address]- Care Team Providers Care Hoisting Engine Operator Name Role Phone Renzo GRAHAM, Declan Hou Primary Care Physician Encounter [facility] Date(s): 09/27/21 - 10/27/21 [facility] [address] [place] [address]- Allergies, Adverse Reactions, Alerts Substance Reaction Severity [...] 08/19/08 Given 1Result Comment: DONE AT [facility] 2Result Comment: [06/22/2018] given at [facility] 3Location History: [facility] 5Admin Note: done @ clinic 6Admin Note: given w/out incident/VIS given 7Result Comment: [id number], [id number] [facility] 9Result Comment: [07/21/2014] given w/out incident 10Admin Note: CDC INFO GIVEN TO PATIENT 11Result Comment: lot #[id number] 12Admin Note: [facility] albuterol 0.083% inhalation solution 3 mL = 2.5 mg, Inhalation, Every 6 hours, PRN for wheezing, # 360 mL, 8 Refills, Maintenance, 07/07/19 14:14:00 EDT, Solution, ICD 10 J44.9, PLEASE BILL THROUGH MED B [id number] Start Date: 07/07/19 Status: Ordered alendronate 70 [...] 11/04/21 17:00:00 EST, 10/04/21 9:15:00 EST, Tablet, [facility]/pharmacy #2024, 165, cm, 09/10/21 10:03:00 EST, Height,61.6, [...] Refills, Maintenance, 04/24/20 16:53:00 EDT, Solution, [facility]/pharmacy #2024, ICD Code J44.9, 165, cm, 03/12/20 8:39:00EDT, Height, 70.7, kg, 03/08/20 16:16:00 EDT, Dry... Start Date: 04/24/20 Status: Ordered budesonide 0.25 mg/2 mL inhalation suspension 0.25 mg, 2, mL, Neb, 2 times a day, for COPD J44.9. rinse mouth after use, # 120 mL, Refills 6, Tot. Refills 6, Maintenance, 03/06/20 11:34:00 EDT, Suspension, Route to Pharmacy Electronically, [id number], [facility]/pharmacy #2024,... Start Date: 03/06/20 Status: Ordered calcium-vitamin D 600 mg-400 intl units oral tablet See Instructions, 1 tablet By Mouth twice daily, # 60 tablet, 11 Refills, Maintenance, 07/04/20 15:50:00 EDT, Tablet, [facility]/pharmacy #2024, 1 tablet By Mouth twice daily, 165, cm, 05/17/20 16:00:00 EDT, Height, 67, kg, 05/01/20 10:40:00 EDT, Dry Weight Start Date: 07/04/20 Status: Ordered Citrate of Magnesia 8.85% oral liquid See Instructions, 30 mL By Mouth Once daily as needed for constipation, # 300 mL, 1 Refills, Soft Stop, 10/02/21 17:13:00 EST, Liquid, [facility]/pharmacy #2024, Partial fill upon patient request if the prescription is for a schedule II opioid drug., 30 mL B... Start Date: 10/02/21 Status: Ordered cyclobenzaprine 10 mg oral tablet 1, tablet, By Mouth, 2 times a day, PRN, # 60 each, Refills 5, Tot. Refills 5, Acute 11/21/21 12:24:00 EST, NEEDED FOR PAIN, 11/21/20 12:23:00 EST, Route to Pharmacy Electronically, [facility]/pharmacy #2024, 165, cm, 05/17/20 16:00:00 EDT, Height, 66.5,... Start Date: 11/21/20 Stop Date: 11/21/21 Status: Ordered docusate sodium 100 mg oral capsule 2 capsule, By Mouth, 2 times a day, PRN NEEDED FOR CONSTIPATION FOR, # 120 capsule, 11 Refills, Maintenance, 11/21/20 16:36:00 EST, [facility] ST[facility], 165, cm, 05/17/20 16:00:00 EDT, Height, 66.5, kg, 09/21/20 8:46:00 EST, Dry Weight Start Date: 11/21/20 Stop Date: 12/21/20 Status: Ordered duloxetine 20 mg oral enteric coated capsule 1 capsule = 20 mg, By Mouth, Daily, # 30 capsule, 11 Refills, Maintenance, 07/16/21 15:55:00 EDT, Capsule, [facility]/pharmacy #2025, Partial fill upon patient request if the prescription is for a schedule II opioid drug., 165, cm, 06/05/21 10:01:00 EDT, Hei... Start Date: 07/16/21 Status: Ordered gabapentin 400 mg oral capsule 1, capsule, By Mouth, 3 times a day, # 90 each, Refills 11, Tot. Refills 11, Maintenance, 09/09/21 11:35:00 EST, Route to Pharmacy Electronically, [facility]/pharmacy #2025, dose increase, refill when needed, 165, [...] 11/04/21 17:00:00 EST, 10/04/21 9:15:00 EST, Tablet, [facility]/pharmacy #202... Start Date: 10/04/21 Stop Date: 11/04/21 Status: Ordered oxyCODONE 10 mg oral tablet 2 tablet = 20 mg, By Mouth, Every 4 hours, PRN as needed for pain, 28 day prescription patient may fill for less than quantity prescribed, # 224 tablet, 0 Refills, Acute 11/04/21 17:00:00 EST, 10/04/21 9:15:00 EST, Tablet, [facility]/pharmacy #2024, refill... Start Date: 10/04/21 Stop Date: [...] 10 J44.9, PLEASE BILL THROUGH MED B [id number], 165, cm, 06/05/21 10:01:00 EDT, Height, 61.4, [...]
--- OUTSIDE RECORDS SUMMARY | 2024-05-04 13:22 | XMS_ITS | Continuity of Care Document ---
Author Organization [facility] Address [address] [place] [address]- Care Team Providers Care Field Pipelines Supervisor Name Role Phone Declan Muller MD Primary Care Physician [place] [facility] [place]30[place]20 [facility] [address] [place] [address]- [facility] Attending Physician: Kaleb De Leon Admitting Physician: AdmtrKaleb Referring Physician: Admtr ArEric Allergies, Adverse Reactions, Alerts Substance Reaction Severity [...] Note: given w/out incident/VIS given 7Result Comment: [id number], [id number] [facility] 9Result Comment: [07/21/2014] given w/out incident 10Admin Note: CDC INFO GIVEN TO PATIENT 11Result Comment: lot #[id number] 12Admin Note: [facility] albuterol 0.083% inhalation solution 3 mL = 2.5 mg, Inhalation, Every 6 hours, PRN for wheezing, # 360 mL, 8 Refills, Maintenance, 07/07/19 14:14:00 EDT, Solution, ICD 10 J44.9, PLEASE BILL THROUGH MED B [id number] Start Date: 07/07/19 Status: Ordered alendronate 70 [...] 11:34:00 EDT, Suspension, Route to Pharmacy Electronically, [id number], [facility]/pharmacy #2024,... Start Date: 03/06/20 Status: Ordered calcium-vitamin [...] Required Details, Route to Pharmacy Electronically, [facility]/pharmacy #2024... Start Date: 03/02/20 Status: Ordered duloxetine [...] 10:31:00 EDT, Route to Pharmacy Electronically, [facility]/pharmacy #2024, 165, cm, 01/27/20 8:11:00 EDT, Height, 53.6, kg, 10/14/19 10:56:00 EST, Dry... Start Date: 02/22/20 Status: Ordered lactulose 10 gm/15 ml oral syrup 30 mL = 20 Gm, By Mouth, Daily, PRN as needed for constipation, for 30 days, # 1,000 mL, 2 Refills,Acute 08/15/20 16:25:00 EDT, 05/17/20 16:25:00 EDT, Syrup, [facility]/pharmacy #2025, 30 mL By Mouth Daily,x30 days,PRN:as [...] 06/18/20 17:00:00 EDT, 05/21/20 10:23:00 EDT, Tablet, [facility]/pharmacy #20... Start Date: 05/21/20 Stop Date: 06/18/20 Status: Ordered oxyCODONE 10 mg oral tablet 2 tablet = 20 mg, By Mouth, Every 4 hours, PRN as needed for pain, 28 day prescription patient may fill for less than quantity prescribed, # 224 tablet, 0 Refills, Acute 06/18/20 17:00:00 EDT, 05/21/20 10:23:00 EDT, Tablet, [facility]/pharmacy #2025, 165, c... Start Date: 05/21/20 Stop [...] Refills, Acute, 05/22/20 11:58:00 EDT, [facility], 165, cm, 05/17/20 16:00:00 EDT, Height, 67, kg, 05/01/20 10:40:00 EDT, Dry Weight Start Date: 05/22/20 Status: Ordered Readi-Cat 2 oral suspension See Instructions, As per recommendations of radiology 1 the evening before when the morning of procedure, # 2 pack/packet, 0 Refills, Maintenance, 05/17/20 16:25:00 EDT, [facility]/pharmacy #202, As per recommendations of radiology 1 [...] 03/02/2017:09:00 EDT, Route to Pharmacy Electronically, [facility]/pharmacy #2024 Tablet, 165, cm, 01/27/20 8:11:00 EDT, Height, 53.6, kg, 10/14/19 10:56:00 EST, Dry... Start Date: 03/02/20 Status: Ordered triamcinolone 0.1% topical cream 1 application, Topically, 3 times a day, PRN psoriasis rash, # 60 Gm, 5 Refills, Acute 01/01/21 10:47:00 EDT, 01/02/20 10:46:00 EDT, Cream, [facility]/pharmacy #2024, 1 application Topically 3 times a day,PRN:psoriasis rash, 165, cm, 11/17/19 10:08:00 EST, H... Start Date: 01/02/20 Stop Date: 01/01/21 Status: Ordered Ventolin HFA 108 mcg/inh inhalation aerosol with adapter 2 puffs, Inhalation, 4 times a day, PRN for wheezing, # 18 Gm, 11 Refills, Maintenance, 01/13/20 11:40:00 EDT, Aerosol, [facility]/pharmacy #2024, 165, cm, 11/17/19 10:08:00 EST, Height, 53.6, kg, 10/14/19 10:56:00 EST, Dry Weight Start Date: 01/13/20 Status: Ordered Yupelri 175 mcg/3 mL inhalation solution = 175 mcg, Inhalation, Daily, j44.9, # 360 mL, 6 Refills, Maintenance, 03/06/20 11:37:00 EDT, [facility], ICD 10 J44.9, PLEASE BILL THROUGH MED B [id number], 165, cm, 01/27/20 8:11:00 EDT, Height, 53.6, [...]
--- OUTSIDE RECORDS SUMMARY | 2024-05-04 13:22 | XMS_ITS | Continuity of Care Document ---
Author Organization [facility] Address [address] [place] [address]- Care Team Providers Care Application Support Administrator Name Role Phone Renzo GRAHAM, Declan Hou Primary Care Physician [facility] Date[facility]s): 01/[facility]23 - 02/14/23 [facility] [address] [place], [place] [address] Allergies, Adverse Reactions, Alerts Substance Reaction [...] 13 08/19/08 Given 1Result Comment: [facility] [id number] 2Result Comment: [06/22/2018] given at [facility] 3Location History: [facility] 4Location History: [facility] 5Admin Note: done @ clinic 6Admin Note: given w/out incident/VIS given 7Result Comment: [id number], [id number] 8Result Comment: DONE AT [facility] 10Result Comment: [07/21/2014] [...] 10 J44.9, PLEASE BILL THROUGH MED B [id number] Start Date: 07/07/19 Status: Ordered albuterol 90 [...] 11:34:00 EDT, Suspension, Route to Pharmacy Electronically, [id number], [facility]/pharmacy #202,... Start Date: 03/06/20 Status: Ordered calcium-vitamin D 600 mg-400 intl units oral tablet 1 tablet, By Mouth, 2 times a day, # 180 tablet, 1 Refills, Maintenance, 10/07/22 11:54:00 EST, [facility], 90, TAKE 1 TABLET BY MOUTH TWICE [...] 11 Refills,Maintenance, 08/19/22 11:00:00 EDT, EC Tablet, [facility]/pharmacy #2025, Partial fill upon patient request [...] capsule, 5 Refills, Maintenance, 07/30/22 11:39:00 EDT, [facility]/pharmacy #0447, 165, cm, 04/17/22 13:32:00 EDT, Height, 60.6,kg, 04/18/22 8:40:00 EDT, Dry Weight Start Date: 07/30/22 Stop Date: 01/26/23 Status: Ordered duloxetine 30 mg oral enteric coated capsule 1 capsule = 30 mg, By Mouth, Daily, # 30 capsule, 11 Refills, Maintenance, 12/15/22 9:46:00 EST, Capsule, [facility]/pharmacy #2025, Partial fill upon patient request if the prescription is for a schedule II opioid drug., 165, cm, 10/09/22 11:32:00 EST, .. Start Date: 12/15/22 Status: Ordered gabapentin 400 mg oral capsule 1, capsule, By Mouth, 3 times a day, # 90 capsule, Refills 11, Maintenance, 10/07/22 13:28:00 EST, Route to Pharmacy Electronically, [facility], 165, cm, 08/26/22 11:06:00 EST, Height, 64.7, [...] Refills, Maintenance, 10/15/22 9:58:00 EST, [facility], 165, cm, 10/09/22 11:32:00 EST, Height, 64.7, [...] 01/19/23 Stop Date: 01/20/24 Status: Ordered nystatin 955092 u/ml oral suspension 5 mL, By Mouth, 4 times a day, # 480 mL, 1 Refills, [facility], 165, cm, 03/28/22 11:14:00 EDT, Height, 60.4, [...] 10 J44.9, PLEASE BILL THROUGH MED B [id number], 165, cm, 06/05/21 10:01:00 EDT, Height, 61.4, [...] Care Team Personnel Name: Joelle Castillo Position: [facility] Onco RN Member Role: Primary Care Nurse Name: Marilee Pitts RN Position: [facility] RN Member Role: Primary Care Nurse Name: Shawnee Schafer RN Position: [facility] SN RN Member Role: Primary Care Nurse Name: Declan Muller MD Position: [facility] Primary Care Physician Member Role: PCP Address: Address: [address] [place] [address] Adult & Pediatric Medicine [place], [place] [address] Name: Aylin Byrne RN Position: [facility] RN Member Role: Primary Care Nurse Name: Blaire Wilde RN Position: [facility] RN Supv Member Role: Primary Care Nurse Name: Edilma Metzger RN Position: [facility] RN Member Role: Primary Care Nurse Name: Katherine Bond RN Position: [facility] SN RN Member Role: Primary Care Nurse Name: Kerry Negron RN Position: [facility] RN Member Role: Primary Care Nurse Name: Missy Avilez RN Position: [facility] Onco RN Member Role: Primary Care Nurse Name: Katina Marcus RN Position: [facility] RN Member Role: Primary Care Nurse Name: Sienna Horne RN Position: [facility] RN Member Role: Primary Care Nurse Name: Ernestine Thomas RN Position: [facility] RN Member Role: Primary Care Nurse Care Team Related Persons Name: JANICE TAYLOR Address: [address] [address]
--- OUTSIDE RECORDS SUMMARY | 2024-05-04 13:22 | XMS_ITS | Continuity of Care Document ---
Author Organization [facility] Address [address] [place] [address]- Care Team Providers Care Flocculator Operator Name Role Phone Renzo GRAHAM, Declan Hou Primary Care Physician Encounter [facility] Date(s): 03/02/23 - 03/09/23 [facility] [address] [place], [place] [address] Attending Physician: Not on Staff, Attending MD Allergies, Adverse Reactions, Alerts Substance Reaction [...] Vaccine (oldterm) 13 08/19/08 Given 1Result Comment: [facility] [id number] 2Result Comment: [06/22/2018] given at [facility] 3Location History: [facility] 4Location History: [facility] 5Admin Note: done @ clinic 6Admin Note: given w/out incident/VIS given 7Result Comment: [id number], [id number] 8Result Comment: DONE AT [facility] 10Result Comment: [07/21/2014] given w/out incident 11Admin Note: [facility] INFO GIVEN TO PATIENT 12Result Comment: lot #[id number] 13Admin Note: [facility] albuterol 0.083% inhalation solution 3 mL = 2.5 mg, Inhalation, Every 6 hours, PRN for wheezing, # 360 mL, 8 Refills, Maintenance, 07/07/19 14:14:00 EDT, Solution, ICD 10 J44.9, PLEASE BILL THROUGH MED B [id number] Start Date: 07/07/19 Status: Ordered albuterol 90 [...] 11:34:00 EDT, Suspension, Route to Pharmacy Electronically, [id number], [facility]/pharmacy #2025,... Start Date: 03/06/20 Status: Ordered calcium-vitamin D 600 mg-400 intl units oral tablet 1 tablet, By Mouth, 2 times a day, # 180 tablet, 1 Refills, Maintenance, 10/07/22 11:54:00 EST, [facility], 90, TAKE 1 TABLET BY MOUTH TWICE [...] 11 Refills,Maintenance, 08/19/22 11:00:00 EDT, EC Tablet, [facility]/pharmacy #202, Partial fill upon patient request [...] capsule, 11 Refills, Maintenance, 03/03/23 10:03:00 EDT, [facility]/pharmacy #2024, 165, cm, 01/21/23 10:40:00 EDT, Height, 55.8, kg, 01/23/23 8:24:00 EDT, Dry Weight Start Date: 03/03/23 Stop Date: 02/26/24 Status: Ordered duloxetine 30 mg oral enteric coated capsule 1 capsule = 30 mg, By Mouth, Daily, # 30 capsule, 11 Refills, Maintenance, 12/15/22 9:46:00 EST, [facility] Partial fill upon patient request if the prescription is for a schedule II opioid drug., 165, cm, 10/09/22 11:32:00 EST, [place]... Start Date: 12/15/22 Status: Ordered gabapentin 400 mg oral capsule 1, capsule, By Mouth, 3 times a day, # 90 capsule, Refills 11, Maintenance, 10/07/22 13:28:00 EST, Route to Pharmacy Electronically, [facility], 165, cm, 08/26/22 11:06:00 EST, Height, 64.7, [...] Refills, Maintenance, 10/15/22 9:58:00 EST, [facility], 165, cm, 10/09/22 11:32:00 EST, Height, 64.7, [...] 01/19/23 Stop Date: 01/20/24 Status: Ordered nystatin 789819 u/ml oral suspension 5 mL, By Mouth, 4 times a day, # 480 mL, 1 Refills, [facility], 165, cm, 03/28/22 11:14:00 EDT, Height, 60.4, [...] 10 J44.9, PLEASE BILL THROUGH MED B [id number], 165, cm, 06/05/21 10:01:00 EDT, Height, 61.4, [...] Care Team Personnel Name: Joelle Castillo Position: [facility] Onco RN Member Role: Primary Care Nurse Name: Marilee Pitts RN Position: [facility] RN Member Role: Primary Care Nurse Name: Shawnee Schafer RN Position: [facility] SN RN Member Role: Primary Care Nurse Name: Declan Muller MD Position: [facility] Primary Care Physician Member Role: PCP Address: Address: [address] [place] [address] Adult [facility] [address] Name: Aylin Byrne RN Position: [facility] RN Member Role: Primary Care Nurse Name: Blaire Wilde RN Position: [facility] RN Supv Member Role: Primary Care Nurse Name: Edilma Metzger RN Position: [facility] RN Member Role: Primary Care Nurse Name: Katherine Bond RN Position: [facility] SN RN Member Role: Primary Care Nurse Name: Kerry Negron RN Position: [facility] RN Member Role: Primary Care Nurse Name: Missy Avilez RN Position: [facility] Onco RN Member Role: Primary Care Nurse Name: Katina Marcus RN Position: [facility] RN Member Role: Primary Care Nurse Name: Sienna Horne RN Position: [facility] RN Member Role: Primary Care Nurse Name: Ernestine Thomas RN Position: [facility] RN Member Role: Primary Care Nurse Care Team Related Persons Name: JANICE ATYLOR Address: [address] [address]
--- OUTSIDE RECORDS SUMMARY | 2024-05-04 13:22 | XMS_ITS | Continuity of Care Document ---
Author Organization [facility] Address [address] [place] [address]- Care Team Providers Care Riverine Assault Craft Crewman Name Role Phone Declan Muller MD Primary Care Physician [place] [facility] Date(s): 10/13/19 - 10/23/19 [facility] [address] [place] [address]- [facility] Attending Physician: Kaleb De Leon Admitting Physician: [...] 12 08/19/08 Given 1Result Comment: DONE AT [facility] 2Result Comment: [06/22/2018[facility] 5Admin Note: done @ clinic 6Admin Note: given w/out incident/VIS given 7Result Comment: [id number], [id number] [facility] 9Result Comment: [07/21/2014] given w/out incident 10Admin Note: [facility] INFO GIVEN TO PATIENT 11Result Comment: lot #[id number] 12Admin Note: [facility] albuterol 0.083% inhalation solution 3 mL = 2.5 mg, Inhalation, Every 6 hours, PRN for wheezing, # 360 mL, 8 Refills, Maintenance, 07/07/19 14:14:00 EDT, Solution, ICD 10 J44.9, PLEASE BILL THROUGH MED B [id number] Start Date: 07/07/19 Status: Ordered Align 4 mg oral capsule 1 capsule = 4 mg, By Mouth, Daily, # 28 capsule, 11 Refills, Maintenance, 10/14/19 11:20:00 EST, [facility], [facility], 165, cm, 10/14/19 10:56:00 EST, Height, 53.6, kg, 10/14/19 10:56:00 EST, Dry Weight Start Date: 10/14/19 Status: Ordered Ativan 1 mg oral tablet 1 tablet = 1 mg, By Mouth, 3 times a day, PRN for anxiety, # 84 each, 0 Refills, Acute 10/10/20 9:26:00 EST, 10/10/19 9:26:00 EST, Tablet, [facility], 165, cm, 10/07/19 8:33:00 EST, Height, 48.2, kg, 09/24/19 18:32:00 EST, Dry Weight Start Date: 10/10/19 Stop Date: 10/10/20 Status: Ordered bedside commode bedside commode, See [...] 19:25:03 EDT, Suspension, Route to Pharmacy Electronically, [id number], [facility]/pharmacy #2024 Start Date: 06/21/19 Status: Ordered [...] 03/10/19 11:05:32 EDT, Route to Pharmacy Electronically, [id number], [facility]/pharmacy #2024 Start Date: 03/10/19 Stop Date: 03/10/20 [...] 09/12/19 14:25:32 EST, Route to Pharmacy Electronically, [id number], [facility]/pharmacy #2024 Start Date: 09/12/19 Stop Date: 09/06/20 Status: Ordered doxycycline hyclate 100 mg oral capsule 1 capsule = 100 mg, By Mouth, 2 times a day, for 10 days, # 20 capsule, 0 Refills, Acute 10/31/19 15:11:00 EST, 10/21/19 15:11:00 EST, Capsule, [facility]/pharmacy #2024, 165, cm, 10/14/19 10:56:00 EST, Height, 53.6, kg, 10/14/19 10:56:00 EST, Dry Weight Start Date: 10/21/19 Stop Date: 10/31/19 Status: Ordered Durable Medical Equipment See Instructions, Maintenance, CPAP supplies all masks, tubing, filters, head gear, chin strap, water chamber, heated tubing, related supplies and accessories [id number] G47.33 G47.39 G47.33 G47.36DME Neftali Gibbs 02/21/18, 03/12/18 11:2... Start Date: 03/12/18 Status: Ordered gabapentin 400 mg oral capsule 400 mg, 1, capsule, By Mouth, 2 times a day, # 60 each, Refills 11, Tot. Refills 11, Maintenance, 01/14/19 14:50:28 EDT, Route to Pharmacy Electronically, [id number], [facility]/pharmacy #2024 Start Date: 01/14/19 Status: Ordered methadone 10 mg oral tablet See Instructions, PRN for pain, 2 tablets By Mouth in the morning, 1 tablet in the afternoon, and 3tablets by mouth in the evening 28 day schedule, # 168 each, 0 Refills, Acute 10/10/20 9:25:00 EST,10/10/19 9:25:00 EST, Tablet, [facility]/pharmacy #2024... Start Date: 10/10/19 Stop Date: 10/10/20 Status: Ordered naproxen 500 mg oral tablet [...] prescribed, # 224 tablet, 0 Refills, Acute 10/10/20 9:24:00 EST, 10/10/19 9:24:00 EST, Tablet, [facility]/pharmacy #5, 165, cm,... Start Date: 10/10/19 Stop Date: 10/10/20 Status: Ordered pantoprazole 40 mg oral delayed [...] 10/05/20 17:40:00 EST, 10/05/19 17:39:00 EST, Tablet, [facility]/pharmacy #5, 159, cm, 09/27/19 7:38:00 EST, [...] Date: 10/08/19 Stop Date: 10/11/19 Status: Ordered roflumilast 250 mcg oral tablet 1 tablet = 250 mcg, By Mouth, Daily, # 90 tablet, 3 Refills, Maintenance, 05/24/19 16:46:00 EDT Start Date: 05/24/19 Status: Ordered Senna 8.6 mg oral tablet 8.6 mg, 1, tablet, By Mouth, Daily, # 30 tablet, Refills 11, Tot. Refills 11, Maintenance, 08/11/1912:15:33 EDT, Route to Pharmacy Electronically, [id number], [facility]/pharmacy #2024 Tablet Start Date: 08/11/19 Status: [...] ICD 10 J44.9,PLEASE BILL THROUGH MED B [id number] Start Date: 07/07/19 Status: Ordered ZyrTEC 10 [...]
--- OUTSIDE RECORDS SUMMARY | 2024-05-04 13:22 | XMS_ITS | Continuity of Care Document ---
Author Organization [facility] Address [address] [place] [address]- Care Team Providers Care Bladder Trimmer Name Role Phone Renzo GRAHAM, Declan Hou Primary Care Physician Encounter [facility] Date(s): 09/14/23 - 10/14/23 [facility] [address] [place], [place] [address] Allergies, Adverse Reactions, Alerts [...] [facility] [id number] 2Result Comment: [06/22/2018] given at [facility] 3Location History: [facility] 4Location History: [facility] 5Admin Note: done @ clinic 6Admin Note: given w/out incident/VIS given 7Result Comment: [id number], [id number] 8Result Comment: DONE AT [facility] 10Result Comment: [07/21/2014] given w/out incident 11Admin Note: [facility] INFO GIVEN TO PATIENT 12Result Comment: lot #[id number] 13Admin Note: [facility] albuterol 0.083% inhalation solution 3 mL = 2.5 mg, Inhalation, Every 6 hours, PRN for wheezing, # 360 mL, 8 Refills, Maintenance, 07/07/19 14:14:00 EDT, Solution, ICD 10 J44.9, PLEASE BILL THROUGH MED B [id number] Start Date: 07/07/19 Status: Ordered albuterol 90 [...] 11:34:00 EDT, Suspension, Route to Pharmacy Electronically, [id number], [facility]/pharmacy #2024,... Start Date: 03/06/20 Status: Ordered calcium-vitamin D 600 mg-400 intl units oral tablet 1 tablet, By Mouth, 2 times a day, # 180 tablet, 1 Refills, Maintenance, 10/07/22 11:54:00 EST, [facility], 90, TAKE 1 TABLET BY MOUTH TWICE [...] 09/24/23 14:08:00 EST, Route to Pharmacy Electronically, [facility]/pharmacy #2024, 165, cm, 09/04/23 8:51:00 [...] 11 Refills,Maintenance, 09/30/23 11:27:00 EST, EC Tablet, [facility]/pharmacy #2025, Partial fill upon patient request [...] capsule, 11 Refills, Maintenance, 03/03/23 10:03:00 EDT, [facility]/pharmacy #2025, 165, cm, 01/21/23 10:40:00 EDT, Height, 55.8, kg, 01/23/23 8:24:00 EDT, Dry Weight Start Date: 03/03/23 Stop Date: 02/26/24 Status: Ordered duloxetine 30 mg oral enteric coated capsule 1 capsule = 30 mg, By Mouth, Daily, # 30 capsule, 11 Refills, Maintenance, 09/14/23 16:34:00 EST, Capsule, [facility]/pharmacy #202, Partial fill upon patient request if the prescription is for a schedule II opioid drug., 165, cm, 09/04/23 8:51:00 EST, .. Start Date: 09/14/23 Status: Ordered gabapentin 400 mg oral capsule 1, capsule, By Mouth, 3 times a day, # 90 capsule, Refills 11, Maintenance, 10/07/22 13:28:00 EST, Route to Pharmacy Electronically, [facility] 29[facility], 165, cm, 08/26/22 11:06:00 EST, Height, 64.7, [...] Refills, Maintenance, 10/15/22 9:58:00 EST, [facility], 165, cm, 10/09/22 11:32:00 EST, Height, 64.7, [...] 09/24/24 14:08:00 EST, 09/24/23 14:07:00 EST, Tablet, [facility]/pharmacy #20... Start Date: 09/24/23 Stop Date: 09/24/24 Status: Ordered nystatin 982321 u/ml oral suspension 5 mL, By Mouth, [...] 10 J44.9, PLEASE BILL THROUGH MED B [id number], 165, cm, 06/05/21 10:01:00 EDT, Height, 61.4, [...] Care Team Personnel Name: Joelle Castillo Position: [facility] Onco RN Member Role: Primary Care Nurse Name: Marilee Pitts RN Position: [facility] RN Member Role: Primary Care Nurse Name: Shawnee Schafer RN Position: [facility] SN RN Member Role: Primary Care Nurse Name: Declan Muller MD Position: [facility] Physician - Primary Care Member Role: PCP Address: Address: [address] [place] [address] Adult & Pediatric Medicine [place], [place] [address] Name: Aylin Byrne RN Position: [facility] RN Member Role: Primary Care Nurse Name: Edilma Metzger RN Position: [facility] RN Member Role: Primary Care Nurse Name: Katherine Bond RN Position: [facility] SN RN Member Role: Primary Care Nurse Name: Gena Chavez RN Position: [facility] tv production assistant Member Role: Line Therapist Name: Kerry Negron RN Position: [facility] RN Member Role: Primary Care Nurse Name: Joslyn Dodge RN Position: [facility] SN RN Member Role: Primary Care Nurse Name: Missy Avilez RN Position: [facility] Onco RN Member Role: Primary Care Nurse Name: Katina Marcus RN Position: [facility] RN Member Role: Primary Care Nurse Name: Sienna Horne RN Position: [facility] RN Member Role: Primary Care Nurse Name: Ernestine Thomas RN Position: [facility] RN Member Role: Primary Care Nurse Care Team Related Persons Name: JANICE TAYLOR Address: [address] [address]
--- OUTSIDE RECORDS SUMMARY | 2024-05-04 13:22 | XMS_ITS | Continuity of Care Document ---
Author Organization [facility] Address [address] [place] [address]- Care Team Providers Care Social Service Manager Name Role Phone Declan Muller MD Primary Care Physician Encounter [facility] [place] Date(s): 01/22/23 - 04/26/23 [facility] [address] [place] [address]- Attending Physician: Nahid Joyner DO Admitting Physician: Nahid Joyner DO Referring Physician: Reg Brewer MD Allergies, Adverse Reactions, Alerts Substance Reaction [...] Vaccine (oldterm) 13 08/19/08 Given 1Result Comment: [facility] [id number] 2Result Comment: [06/22/2018] given at [facility] 3Location History: [facility] 4Location History: [facility] 5Admin Note: done @ clinic 6Admin Note: given w/out incident/VIS given 7Result Comment: [id number], [id number] 8Result Comment: DONE AT [facility] 9Location History: [facility] 10Result Comment: [07/21/2014] given w/out incident 11Admin Note: [facility][NOTE 3] INFO GIVEN TO PATIENT 12Result Comment: lot #[id number] 13Admin Note: [facility] albuterol 0.083% inhalation solution 3 mL = 2.5 mg, Inhalation, Every 6 hours, PRN for wheezing, # 360 mL, 8 Refills, Maintenance, 07/07/19 14:14:00 EDT, Solution, ICD 10 J44.9, PLEASE BILL THROUGH MED B [id number] Start Date: 07/07/19 Status: Ordered albuterol 90 [...] 11:34:00 EDT, Suspension, Route to Pharmacy Electronically, [id number], [facility]/pharmacy #202,... Start Date: 03/06/20 Status: Ordered calcium-vitamin D 600 mg-400 intl units oral tablet 1 tablet, By Mouth, 2 times a day, # 180 tablet, 1 Refills, Maintenance, 10/07/22 11:54:00 EST, [facility], 90, TAKE 1 TABLET BY MOUTH TWICE [...] Maintenance, 12/15/22 9:46:00 EST, [facility] fill upon patient request if the prescription is for a schedule II opioid drug., 165, cm, 10/09/22 11:32:00 EST, [facility]... Start Date: 12/15/22 Status: Ordered gabapentin 400 mg oral capsule 1, capsule, By Mouth, 3 times a day, # 90 capsule, Refills 11, Maintenance, 10/07/22 13:28:00 EST, Route to Pharmacy Electronically, [facility], 165, cm, 08/26/22 11:06:00 EST, Height, 64.7, [...] Refills, Maintenance, 10/15/22 9:58:00 EST, [facility], 165, cm, 10/09/22 11:32:00 EST, Height, 64.7, [...] 04/20/23 Stop Date: 04/20/24 Status: Ordered nystatin 561984 u/ml oral suspension 5 mL, By Mouth, 4 times a day, # 480 mL, 1 Refills, [facility], 165, cm, 03/28/22 11:14:00 EDT, Height, 60.4, [...] 10 J44.9, PLEASE BILL THROUGH MED B [id number], 165, cm, 06/05/21 10:01:00 EDT, Height, 61.4, [...] Care Team Personnel Name: Joelle Castillo Position: [facility] Onco RN Member Role: Primary Care Nurse Name: Marilee Pitts RN Position: [facility] RN Member Role: Primary Care Nurse Name: Shawnee Schafer RN Position: [facility] SN RN Member Role: Primary Care Nurse Name: Declan Muller MD Position: [facility] Physician - Primary Care Member Role: PCP Address: Address: [address] [place] [address] Adult & Pediatric Medicine [address] Name: Aylin Byrne RN Position: [facility] RN Member Role: Primary Care Nurse Name: Blaire Wilde RN Position: [facility] RN Supv Member Role: Primary Care Nurse Name: Edilma Metzger RN Position: S RN Member Role: Primary Care Nurse Name: Katherine Bond RN Position: [facility] SN RN Member Role: Primary Care Nurse Name: Kerry Negron RN Position: S RN Member Role: Primary Care Nurse Name: Missy Avilez RN Position: [facility] Onco RN Member Role: Primary Care Nurse Name: Katina Marcus RN Position: [facility] RN Member Role: Primary Care Nurse Name: Sienna Horne RN Position: [facility] RN Member Role: Primary Care Nurse Name: Ernestine Thomas RN Position: [facility] RN Member Role: Primary Care Nurse Care Team Related Persons Name: JANICE TAYLOR Address: [address] [address]
--- OUTSIDE RECORDS SUMMARY | 2024-05-04 13:23 | XMS_ITS | Continuity of Care Document ---
Author Organization [facility] Address [address] [place] [address]- Care Team Providers Care Special Education Teacher Name Role Phone Renzo GRAHAM, Declan Hou Primary Care Physician [facility] Date[facility]): 01/13/24 - 02/12/[address] [address] Allergies, Adverse Reactions, Alerts Substance [...] 1Result Comment: [facility] [id number] 2Result Comment: [06/22/2018] given at [facility] 3Location History: [facility] 4Location History: [facility] 5Admin Note: done @ clinic 6Admin Note: given w/out incident/VIS given 7Result Comment: [id number], [id number] 8Result Comment: DONE AT [facility] 10Result Comment: [07/21/2014] given w/out incident 11Admin Note: [facility] INFO GIVEN TO PATIENT 12Result Comment: lot #[id number] 13Admin Note: [facility] albuterol 0.083% inhalation solution 3 mL = 2.5 mg, Inhalation, Every 6 hours, PRN for wheezing, # 360 mL, 8 Refills, Maintenance, 07/07/19 14:14:00 EDT, Solution, ICD 10 J44.9, PLEASE BILL THROUGH MED B [id number] Start Date: 07/07/19 Status: Ordered albuterol 90 [...] 11:34:00 EDT, Suspension, Route to Pharmacy Electronically, [id number], [facility]/pharmacy #2025,... Start Date: 03/06/20 Status: Ordered calcium-vitamin D 600 mg-400 intl units oral tablet 1 tablet, By Mouth, 2 times a day, # 180 tablet, 1 Refills, Maintenance, 10/07/22 11:54:00 EST, [facility], 90, TAKE 1 TABLET BY MOUTH TWICE A DAY, 165, cm, 08/26/22 11:06:00 EST, Height, 64.7, kg, 10/03/22 8:14:00 EST, Dry Weight Start Date: 10/07/22 Status: Ordered cetirizine 10 mg oral tablet 1 tablet, By Mouth, Daily, PRN NEEDED FOR SINUS SYMPTOMS, # 90 tablet, 1 Refills, Maintenance, 12/09/23 1:28:00 EST, [facility]/pharmacy #2024, 165, cm, 09/30/23 10:35:00 EST, Height, 53.7, kg, 11/27/23 8:47:00 EST, Dry Weight Start Date: 12/09/23 Status: Ordered cyclobenzaprine 10 mg oral tablet 1/2 OR 1 TABLET, By Mouth, 2 times a day, PRN, # 60 tablet, Refills 5, Tot. Refills 5, Maintenance, NEEDED FOR MUSCLE PAIN OR SPASM, 01/13/24 12:46:00 EDT, Route to Pharmacy Electronically, [facility]/pharmacy #2024, 165, cm, 12/30/23 11:12:00 EDT, Height... [...] 11 Refills, Maintenance, 03/03/23 10:03:00 EDT, [facility]/pharmacy #2024, 165, cm, 01/21/23 10:40:00 EDT, Height, 55.8, kg, 01/23/23 8:24:00 EDT, Dry Weight Start Date: 03/03/23 Stop Date: 02/26/24 Status: Ordered duloxetine 30 mg oral enteric coated capsule 1 capsule = 30 mg, By Mouth, Daily, # 30 capsule, 11 Refills, Maintenance, 09/14/23 16:34:00 EST, Caps[facility], [facility], Partial [facility] upon [...] 5 Refills, Maintenance, 01/08/24 12:43:00 EDT, Tablet, [facility]/pharmacy #2024, Partial fill upon patient request if the prescription is for a schedule II opioid drug., 165,... Start Date: 01/08/24 Status: Ordered methadone 10 mg oral tablet See Instructions, PRN for pain, 1 tablet By Mouth twice daily, # 56 each, 0 Refills, Maintenance, 01/19/24 12:54:00 EDT, Tablet, [facility], refill when due, 165, cm, 12/30/23 11:12:00 EDT, Height, 52.9, kg, 12/30/23 11:12:00 EDT, Dry Weight Start Date: 01/19/24 Status: Ordered metoprolol 100 mg oral tablet, extended release 100 mg, 1, tablet, By Mouth, Daily, # 90 tablet, Refills 0, Maintenance, 12/30/23 11:29:00 EDT, Partial fill upon patient request if the prescription is for a schedule II opioid drug. Start Date: 12/30/23 Status: Ordered nystatin 365699 u/ml oral suspension 5 mL, By Mouth, 4 times a day, # 480 mL, 1 Refills, Physician Stop 09/30/24 11:03:00 EST, 09/30/23 11:02:00 EST, [facility], 165, cm, 09/30/23 10:35:00 EST, Height, 55, kg, 09/30/23 10:35:00 EST, Dry Weight Start Date: 09/30/23 Stop Date: 09/30/24 Status: Ordered ondansetron 4 mg oral tablet, disintegrating 1 tablet = 4 mg, By Mouth, Every 6 hours, PRN Nausea & Vomiting, # 20 each, 1 Refills, Acute 12/28/24 12:00:00 EDT, 12/29/23 12:52:00 EDT, Tablet, [facility]/pharmacy #2024, Partial fill upon patient request [...] 01/22/24 7:51:00 EDT, Route to Pharmacy Electronically, [facility]/pharmacy #2024, Partial fill upon patient request [...] 10 J44.9, PLEASE BILL THROUGH MED B [id number], 165, cm, 06/05/21 10:01:00 EDT, Height, 61.4, [...] Primary Care Member Role: PCP Address: Address: [address] [place] [address] Adult [facility] [place] [address]- Name: Aylin Byrne RN Position: [facility] RN Member Role: Primary Care Nurse Name: Edilma Metzger RN Position: [facility] RN Member Role: Primary Care Nurse Name: Katherine Bond RN Position: [facility] RN Member Role: Primary Care Nurse Name: Gena Chavez RN Position: [facility] crop pest control specialist Member Role: Stenographic Court Reporter Name: Kerry Negron RN Position: [facility] RN Member Role: Primary Care Nurse Name: Joslyn Dodge RN Position: [facility] AMB Nurse Member Role: Primary Care Nurse [...] Related Persons Name: JANICE TAYLOR Address: home [address] [place] [id number]
--- OUTSIDE RECORDS SUMMARY | 2024-05-04 13:23 | XMS_ITS | Continuity of Care Document ---
Author Organization [facility] Address [address] [address]- Care Team Providers Care Hospital Coder Name Role Phone Renzo GRAHAM, Declan Hou Primary Care Physician [phone] [facility]counter [facility] Date(s): 04/25/20 - 08/23/20 [facility] [address] [address] Attending Physician: Jolie Ledbetter MD Admitting Physician: Jolie Ledbetter MD Allergies, Adverse Reactions, Alerts Substance Reaction [...] Note: given w/out incident/VIS given 7Result Comment: [id number], [id number] [facility] 9Result Comment: [07/21/2014] given w/out incident 10Admin Note: [facility] INFO GIVEN TO PATIENT 11Result Comment: lot #[id number] 12Admin Note: [facility] albuterol 0.083% inhalation solution 3 mL = 2.5 mg, Inhalation, Every 6 hours, PRN for wheezing, # 360 mL, 8 Refills, Maintenance, 07/07/19 14:14:00 EDT, Solution, ICD 10 J44.9, PLEASE BILL THROUGH MED B [id number] Start Date: 07/07/19 Status: Ordered alendronate 70 mg oral tablet 1 tablet = 70 mg, By Mouth, Every week, # 4 tablet, 0 Refills, Maintenance, 04/02/20 11:08:00 EDT, Tablet Start Date: 04/02/20 Status: Ordered Ativan 1 mg oral tablet 1 tablet = 1 mg, By Mouth, 3 times a day, PRN for anxiety, # 84 each, 0 Refills, Acute 09/11/20 17:00:00 EST, 08/13/20 8:42:00 EDT, Tablet, [facility], 165, cm, 05/17/20 16:00:00 EDT, Height,64.8, kg, 07/30/20 7:58:00 EDT, Dry Weight Start Date: 08/13/20 Stop Date: 09/11/20 Status: Ordered Brovana 15 mcg/2 mL inhalation [...] 11:34:00 EDT, Suspension, Route to Pharmacy Electronically, [id number], [facility]/pharmacy #2024,... Start Date: 03/06/20 Status: [...] Replace Required Details, Route to Pharmacy Electronically, [facility]/pharmacy #2024... Start Date: 03/02/20 Status: Ordered [...] EDT, Route to Pharmacy Electronically, [facility]/pharmacy #2024, 165, cm, 01/27/20 8:11:00 EDT, Height, 53.6, kg, 10/14/19 10:56:00 EST, Dry... Start Date: 02/22/20 Status: Ordered methadone 10 mg oral tablet See Instructions, PRN for pain, 2 tablets By Mouth in the morning, 1 tablet in the afternoon, and 3tablets by mouth in the evening 28 day schedule, # 168 each, 0 Refills, Acute 09/11/20 17:00:00 EST, 08/13/20 8:42:00 EDT, Tablet, [facility]/pharmacy #202... Start Date: 08/13/20 Stop Date: 09/11/20 Status: Ordered naproxen 500 mg oral tablet 1 tablet = 500 mg, By Mouth, 2 times a day, PRN joint or muscle pain, # 60 tablet, 11 Refills, Acute 06/11/21 11:08:00 EDT, 06/11/20 11:08:00 EDT, Tablet, [facility]/pharmacy #2025, 165, cm, 05/17/20 16:00:00 EDT, Height, 67, kg, 05/01/20 10:40:00 EDT, Dry W... Start Date: 06/11/20 Stop Date: 06/11/21 Status: Ordered oxyCODONE 10 mg oral tablet 2 tablet = 20 mg, By Mouth, Every 4 hours, PRN as needed for pain, 28 day prescription patient may fill for less than quantity prescribed, # 224 tablet, 0 Refills, Acute 09/11/20 17:00:00 EST, 08/13/20 8:42:00 EDT, Tablet, [facility]/pharmacy #2025, 165, cm... Start Date: 08/13/20 Stop Date: 09/11/20 Status: Ordered pantoprazole 40 mg oral delayed [...] Refills, Acute, 05/22/20 11:58:00 EDT, [facility], 165, cm, 05/17/20 16:00:00 EDT, Height, 67, kg, 05/01/20 10:40:00 EDT, Dry Weight Start Date: 05/22/20 Status: Ordered Readi-Cat 2 oral suspension See Instructions, As per recommendations of radiology 1 the evening before when the morning of procedure, # 2 pack/packet, 0 Refills, Maintenance, 05/17/20 16:25:00 EDT, [facility]/pharmacy #2025, As per recommendations of radiology 1 the evening before when... Start Date: 05/17/20 Status: Ordered roflumilast 250 mcg oral tablet 1 tablet = 250 mcg, By Mouth, Daily, # 90 tablet, 3 Refills, Maintenance, 07/04/20 15:51:00 EDT, [facility]/pharmacy #202, 165, cm, 05/17/20 16:00:00 EDT, Height, [...] EDT, 01/02/20 10:46:00 EDT, Cream, [facility]/pharmacy #202, 1 application Topically 3 times [...] 10 J44.9, PLEASE BILL THROUGH MED B [id number], 165, cm, 01/27/20 8:11:00 EDT, Height, 53.6, [...]
--- OUTSIDE RECORDS SUMMARY | 2024-05-04 13:23 | XMS_ITS | Continuity of Care Document ---
Author Organization [facility] Address [address] [place] [address]- Care Team Providers Care Floor Cashier Name Role Phone Declan Muller MD Primary Care Physician [phone] Encounter [facility] Date(s): 10/14/19 - 10/21/19 [facility] [address] [place] [address]- [facility] Encounter Diagnosis Pneumonia(Discharge Diagnosis) - 10/14/19 Chronic obstructive lung disease(Discharge Diagnosis) - 10/14/19 Lumbar radiculopathy(Discharge Diagnosis) - 10/14/19 Hypertension(Discharge Diagnosis) - 10/14/19 Hyperglycemia(Discharge Diagnosis) - 10/14/19 Immunodeficiency disorder, hypogammaglobulinemia(Discharge Diagnosis) - 10/14/19 ALOK (obstructive sleep apnea)(Discharge Diagnosis) - 10/14/19 Attending Physician: Declan Muller MD Allergies, Adverse [...] 08/19/08 Given 1Result Comment: DONE AT [facility] 2Result Comment: [06/22/2018] given at [facility] 3Location [facility] 4Location History: [facility] 5Admin Note: done @ clinic 6Admin Note: given w/out incident/VIS given 7Result Comment: [id number], [id number] 8Location History: [facility] 9Result Comment: [07/21/2014] given w/out incident 10Admin Note: [facility] INFO GIVEN TO PATIENT 11Result Comment: lot #[id number] 12Admin Note: [facility] albuterol 0.083% inhalation solution 3 mL = 2.5 mg, Inhalation, Every 6 hours, PRN for wheezing, # 360 mL, 8 Refills, Maintenance, 07/07/19 14:14:00 EDT, Solution, ICD 10 J44.9, PLEASE BILL THROUGH MED B [id number] Start Date: 07/07/19 Status: Ordered Align 4 [...] 19:25:03 EDT, Suspension, Route to Pharmacy Electronically, [id number], [facility]/pharmacy #2024 Start Date: 06/21/19 Status: Ordered [...] 03/10/19 11:05:32 EDT, Route to Pharmacy Electronically, [id number], [facility]/pharmacy #2024 Start Date: 03/10/19 Stop Date: [...] 09/12/19 14:25:32 EST, Route to Pharmacy Electronically, [id number], [facility]/pharmacy #2024 Start Date: 09/12/19 Stop Date: 09/06/20 Status: Ordered doxycycline hyclate 100 mg oral capsule 1 capsule = 100 mg, By Mouth, 2 times a day, for 10 days, # 20 capsule, 0 Refills, Acute 10/31/19 15:11:00 EST, 10/21/19 15:11:00 EST, Capsule, [facility]/pharmacy #2024, 165, cm, 10/14/19 10:56:00 EST, Height, 53.6, kg, 10/14/19 10:56:00 EST, Dry Weight Start Date: 10/21/19 Stop Date: 10/31/19 Status: Ordered Durable Medical Equipment See Instructions, Maintenance, CPAP supplies all masks, tubing, filters, head gear, chin strap, water chamber, heated tubing, related supplies and accessories [id number] G47.33 G47.39 G47.33 G47.36DME Neftali Gibbs 02/21/18, 03/12/18 11:2... Start Date: 03/12/18 Status: Ordered gabapentin 400 mg oral capsule 400 mg, 1, capsule, By Mouth, 2 times a day, # 60 each, Refills 11, Tot. Refills 11, Maintenance, 01/14/19 14:50:28 EDT, Route to Pharmacy Electronically, [id number], [facility]/pharmacy #2024 Start Date: 01/14/19 Status: Ordered methadone 10 mg oral tablet See Instructions, PRN for pain, 2 tablets By Mouth in the morning, 1 tablet in the afternoon, and 3tablets by mouth in the evening 28 day schedule, # 168 each, 0 Refills, Acute 10/10/20 9:25:00 EST,10/10/19 9:25:00 EST, Tablet, [facility]/pharmacy #2024... Start Date: 10/10/19 Stop Date: 10/10/20 [...] 10/10/20 9:24:00 EST, 10/10/19 9:24:00 EST, Tablet, [facility]/pharmacy #2025, 165, cm,... Start Date: 10/10/19 Stop Date: [...] 10/05/20 17:40:00 EST, 10/05/19 17:39:00 EST, Tablet, [facility]/pharmacy #2025, 159, cm, 09/27/19 7:38:00 EST, Height, [...] Maintenance, 08/11/1912:15:33 EDT, Route to Pharmacy Electronically, [id number], [facility]/pharmacy #2024 Tablet Start Date: 08/11/19 Status: [...] ICD 10 J44.9,PLEASE BILL THROUGH MED B [id number] Start Date: 07/07/19 Status: Ordered ZyrTEC 10 [...] Effective Dates Health Status Clinical Service Informant Pneumonia Discharge Diagnosis 10/14/19 Chronic obstructive lung disease Discharge Diagnosis 10/14/19 Lumbar radiculopathy Discharge Diagnosis 10/14/19 Hypertension Discharge Diagnosis 10/14/19 Hyperglycemia Discharge Diagnosis 10/14/19 Immunodeficiency disorder, hypogammaglobulinemia Discharge Diagnosis 10/14/19 ALOK (obstructive sleep apnea) Discharge Diagnosis 10/14/19 Vital Signs Most recent to oldest [Reference Range]: 1 Height 165 cm (10/14/19 10:56 AM) Weight 53.6 kg (10/14/19 10:56 AM) Oxygen Saturation [94-100 %] 97 % (10/14/19 10:56 AM) Pulse Rate [55-90 bpm] 73 bpm (10/14/19 10:56 AM) Body Mass Index [18.5-24.99] 19.69 (10/14/19 10:56 AM) Blood Pressure [90-138/55-84 mm Hg] 118/ 70mm Hg (10/14/19 10:56 AM) Blood pressure sites Arm, left (10/14/19 10:56 AM) Dry Weight 53.6 kg (10/14/19 10:56 AM) Weight Obtained Via Standing scale (10/14/19 10:56 AM) Social History Social History Type Response Smoking Status Former smoker, quit more than 30 days ago; Other: quit 20 years ago; entered on: 09/24/19 Sex
--- OUTSIDE RECORDS SUMMARY | 2024-05-04 13:23 | XMS_ITS | Continuity of Care Document ---
Author Organization [facility] Address [address] [address]- Care Team Providers Care Legal Aide Name Role Phone Declan Muller MD Primary Care Physician [phone] [facility] Date(s): 03/07/21 - 04/06/21 [facility] [address] [address]- Attending Physician: AdmKaleb colindres Admitting Physician: Admtr, Kaleb Referring Physician: Admtr, Ar8 Allergies, Adverse Reactions, [...] Note: given w/out incident/VIS given 7Result Comment: [id number], [id number] [facility] 9Result Comment: [07/21/2014] given w/out incident 10Admin Note: [facility] INFO GIVEN TO PATIENT 11Result Comment: lot #[id number] 12Admin Note: [facility] albuterol 0.083% inhalation solution 3 mL = 2.5 mg, Inhalation, Every 6 hours, PRN for wheezing, # 360 mL, 8 Refills, Maintenance, 07/07/19 14:14:00 EDT, Solution, ICD 10 J44.9, PLEASE BILL THROUGH MED B [id number] Start Date: 07/07/19 Status: Ordered alendronate 70 [...] 11:34:00 EDT, Suspension, Route to Pharmacy Electronically, [id number], [facility]/pharmacy #2024,... Start Date: 03/06/20 Status: Ordered calcium-vitamin D 600 mg-400 intl units oral tablet See Instructions, 1 tablet By Mouth twice daily, # 60 tablet, 11 Refills, Maintenance, 07/04/20 15:50:00 EDT, Tablet, [facility]/pharmacy #2024, 1 tablet By Mouth twice [...] 11/21/20 12:23:00 EST, Route to Pharmacy Electronically, [facility]/pharmacy #2024, 165, cm, 05/17/20 16:00:00 EDT, Height, 66.5,... Start Date: 11/21/20 Stop Date: 11/21/21 Status: Ordered docusate sodium 100 mg oral capsule 2 capsule, By Mouth, 2 times a day, PRN NEEDED FOR CONSTIPATION FOR, # 120 capsule, 11 Refills, Maintenance, 11/21/20 16:36:00 EST, [facility], 165, cm, 05/17/20 16:00:00 EDT, Height, 66.5, [...] 01/30/21 11:23:00 EDT, Route to Pharmacy Electronically, [facility], 165, cm, 12/20/20 10:40:00 EST, Height, 66.7, [...] 04/22/21 17:00:00 EDT, 03/22/21 9:01:00 EDT, Tablet, [facility]/pharmacy #202... Start Date: 03/22/21 Stop Date: 04/22/21 Status: Ordered naproxen 500 mg oral tablet 1 tablet = 500 mg, By Mouth, 2 times a day, PRN joint or muscle pain, # 60 tablet, 11 Refills, Acute 06/11/21 11:08:00 EDT, 06/11/20 11:08:00 EDT, Tablet, [facility]/pharmacy #2025, 165, cm, 05/17/20 16:00:00 EDT, [...] 04/21/21 17:00:00 EDT, 03/22/21 9:01:00 EDT, Tablet, [facility]/pharmacy #202, refill... Start Date: 03/22/21 Stop Date: [...] tablet, 3 Refills, Maintenance, 07/04/20 15:51:00 EDT, [facility]/pharmacy #2025, 165, cm, 05/17/20 16:00:00 EDT, Height, 67, kg, 05/01/20 10:40:00 EDT, Dry Weight Start Date: 07/04/20 Status: Ordered Senna 8.6 mg oral tablet 8.6 mg, 1, tablet, By Mouth, Daily, # 30 tablet, Refills 11, Tot. Refills 11, Maintenance, 03/02/2017:09:00 EDT, Route to Pharmacy Electronically, [facility]/pharmacy #2024 Tablet, 165, cm, 01/27/20 8:11:00 EDT, Height, 53.6, kg, 10/14/19 10:56:00 EST, Dry... Start Date: 03/02/20 Status: Ordered Ventolin HFA 108 mcg/inh inhalation aerosol with adapter 2 puffs, Inhalation, 4 times a day, PRN for wheezing, # 18 Gm, 11 Refills, Maintenance, 01/13/20 11:40:00 EDT, Aerosol, [facility]/pharmacy #2025, 165, cm, 11/17/19 10:08:00 EST, Height, 53.6, kg, 10/14/19 10:56:00 EST, Dry Weight Start Date: 01/13/20 Status: Ordered Yupelri 175 mcg/3 mL inhalation solution = 175 mcg, Inhalation, Daily, j44.9 please bill through med B, # 120 mL, 3 Refills, Maintenance, 01/22/21 8:54:00 EDT, [facility], ICD 10 J44.9, PLEASE BILL THROUGH MED B [id number], 165, cm, 12/20/20 10:40:00 EST, Height, 66.7, [...]
--- OUTSIDE RECORDS SUMMARY | 2024-05-04 13:23 | XMS_ITS | Continuity of Care Document ---
Author Organization [facility] Address [address] [place] [address]- Care Team Providers Care Wastewater Manager Name Role Phone Declan Muller MD Primary Care Physician [facility]counter [facility] Date(s): 02/15/21 - 03/17/21 [facility] [address] [place], [place] [address] Allergies, Adverse Reactions, Alerts Substance [...] Note: given w/out incident/VIS given 7Result Comment: [id number], [id number] [facility] 9Result Comment: [07/21/2014] given w/out incident 10Admin Note: [facility] INFO GIVEN TO PATIENT 11Result Comment: lot #[id number] 12Admin Note: [facility] albuterol 0.083% inhalation solution 3 mL = 2.5 mg, Inhalation, Every 6 hours, PRN for wheezing, # 360 mL, 8 Refills, Maintenance, 07/07/19 14:14:00 EDT, Solution, ICD 10 J44.9, PLEASE BILL THROUGH MED B [id number] Start Date: 07/07/19 Status: Ordered alendronate 70 [...] 11:34:00 EDT, Suspension, Route to Pharmacy Electronically, [id number], [facility]/pharmacy #202,... Start Date: 03/06/20 Status: Ordered calcium-vitamin D 600 mg-400 intl units oral tablet See Instructions, 1 tablet By Mouth twice daily, # 60 tablet, 11 Refills, Maintenance, 07/04/20 15:50:00 EDT, Tablet, [facility]/pharmacy #2024, 1 tablet By Mouth twice daily, [...] 11/21/20 12:23:00 EST, Route to Pharmacy Electronically, [facility]/pharmacy #2024, 165, cm, 05/17/20 16:00:00 EDT, Height, 66.5,... Start Date: 11/21/20 Stop Date: 11/21/21 Status: Ordered docusate sodium 100 mg oral capsule 2 capsule, By Mouth, 2 times a day, PRN NEEDED FOR CONSTIPATION FOR, # 120 capsule, 11 Refills, Maintenance, 11/21/20 16:36:00 EST, [facility], 165, cm, 05/17/20 16:00:00 EDT, Height, 66.5, [...] 01/30/21 11:23:00 EDT, Route to Pharmacy Electronically, [facility], 165, cm, 12/20/20 10:40:00 EST, Height, 66.7, [...] 03/25/21 17:00:00 EDT, 02/22/21 8:35:00 EDT, Tablet, [facility]/pharmacy #202... Start Date: 02/22/21 Stop Date: 03/25/21 Status: Ordered naproxen 500 mg oral tablet 1 tablet = 500 mg, By Mouth, 2 times a day, PRN joint or muscle pain, # 60 tablet, 11 Refills, Acute 06/11/21 11:08:00 EDT, 06/11/20 11:08:00 EDT, Tablet, [facility]/pharmacy #2025, 165, cm, 05/17/20 16:00:00 EDT, Height, [...] 03/25/21 17:00:00 EDT, 02/22/21 8:35:00 EDT, Tablet, [facility]/pharmacy #202, refill... Start Date: 02/22/21 Stop Date: 03/25/21 [...] tablet, 3 Refills, Maintenance, 07/04/20 15:51:00 EDT, [facility]/pharmacy #2024, 165, cm, 05/17/20 16:00:00 EDT, Height, 67, kg, 05/01/20 10:40:00 EDT, Dry Weight Start Date: 07/04/20 Status: Ordered Senna 8.6 mg oral tablet 8.6 mg, 1, tablet, By Mouth, Daily, # 30 tablet, Refills 11, Tot. Refills 11, Maintenance, 03/02/2017:09:00 EDT, Route to Pharmacy Electronically, [facility]/pharmacy #2024 Tablet, 165, cm, 01/27/20 8:11:00 EDT, [...] 10 J44.9, PLEASE BILL THROUGH MED B [id number], 165, cm, 12/20/20 10:40:00 EST, Height, 66.7, [...]
--- OUTSIDE RECORDS SUMMARY | 2024-05-04 13:23 | XMS_ITS | Continuity of Care Document ---
Author Organization [facility] Address [address] [place] [address]- Care Team Providers Care Aluminum Siding Mechanic Name Role Phone Declan Muller MD Primary Care Physician Encounter 06/13/19 - 12/09/19 [facility] [address] [place] [id number]- [facility] Discharge Disposition: GOALS MET Allergies, Adverse Reactions, Alerts Substance Reaction Severity [...] Note: given w/out incident/VIS given 7Result Comment: [id number], [id number] [facility] 9Result Comment: [07/21/2014] given w/out incident 10Admin Note: [facility] INFO GIVEN TO PATIENT 11Result Comment: lot #[id number] 12Admin Note: [facility] albuterol 0.083% inhalation solution 3 mL = 2.5 mg, Inhalation, Every 6 hours, PRN for wheezing, # 360 mL, 8 Refills, Maintenance, 07/07/19 14:14:00 EDT, Solution, ICD 10 J44.9, PLEASE BILL THROUGH MED B [id number] Start Date: 07/07/19 Status: Ordered Align 4 [...] anxiety, # 84 each, 0 Refills, Acute 12/05/20 12:47:00 EST, 12/05/19 12:47:00 EST, Tablet, [facility] 165, cm, 11/17/19 10:08:00 EST, Height, 53.6, kg, 10/14/19 10:56:00 EST, Dry Weight Start Date: 12/05/19 Stop Date: 12/05/20 Status: Ordered bedside commode bedside commode, See [...] 19:25:03 EDT, Suspension, Route to Pharmacy Electronically, [id number], [facility]/pharmacy #2024 Start Date: 06/21/19 Status: Ordered calcium-vitamin [...] 10/26/19 12:28:00 EST, [facility], cm, 10/14/19 10:56:00 EST, Height, [...] 11/16/19 14:23:00 EST, [facility], cm, 11/04/19 8:13:00 EST, Height, 53.6, kg,... Start Date: 11/16/19 Stop Date: 11/10/20 Status: Ordered Durable Medical Equipment See Instructions, Maintenance, CPAP supplies all masks, tubing, filters, head gear, chin strap, water chamber, heated tubing, related supplies and accessories [id number] G47.33 G47.39 G47.33 G47.36DME Neftali Gibbs 02/21/18, 03/12/18 11:2... Start Date: 03/12/18 Status: Ordered gabapentin 400 mg oral capsule 400 mg, 1, capsule, By Mouth, 2 times a day, # 60 each, Refills 11, Tot. Refills 11, Maintenance, 01/14/19 14:50:28 EDT, Route to Pharmacy Electronically, [id number], [facility]/pharmacy #5 Start Date: 01/14/19 Status: Ordered hydrochlorothiazide 25 mg oral tablet 1, tablet, By Mouth, Daily, # 90 tablet, Refills 3, Tot. Refills 0, Maintenance, 11/23/19 12:43:00 EST, Route to Pharmacy Electronically, [facility] STORE 78007, 165, cm, 11/17/19 10:08:00 EST, Height, 53.6, kg, 10/14/19 10:56:00 EST, Dry Weight Start Date: 11/23/19 Status: Ordered methadone 10 mg oral tablet See Instructions, PRN for pain, 2 tablets By Mouth in the morning, 1 tablet in the afternoon, and 3tablets by mouth in the evening 28 day schedule, # 168 each, 0 Refills, Acute 12/05/20 12:46:00 EST, 12/05/19 12:46:00 EST, Tablet, [facility]/pharmacy #20... Start Date: 12/05/19 Stop Date: 12/05/20 Status: Ordered naproxen 500 mg oral tablet [...] prescribed, # 224 tablet, 0 Refills, Acute 12/05/20 12:47:00 EST, 12/05/19 12:47:00 EST, Tablet, [facility]/pharmacy #2025, 165, c... Start Date: 12/05/19 Stop Date: 12/05/20 Status: Ordered pantoprazole 40 mg oral delayed [...] 10/05/20 17:40:00 EST, 10/05/19 17:39:00 EST, Tablet, [facility]/pharmacy #2025, 159, cm, 09/27/19 7:38:00 EST, Height, [...] Maintenance, 08/11/1912:15:33 EDT, Route to Pharmacy Electronically, [id number], [facility]/pharmacy #202 Tablet Start Date: 08/11/19 Status: Ordered Ventolin HFA 108 mcg/inh inhalation aerosol with adapter 2 puffs, Inhalation, 4 times a day, PRN for wheezing, # 18 Gm, 11 Refills, Maintenance, 03/17/18 10:52:59 EDT, Aerosol Start Date: 03/17/18 Status: Ordered Yupelri 175 mcg/3 mL inhalation solution = 175 mcg, Inhalation, Daily, # 180 mL, 5 Refills, Maintenance, 11/29/19 13:05:00 EST, [facility]/pharmacy#2024, ICD 10 J44.9, PLEASE BILL THROUGH MED B [id number], 165, cm, 11/17/19 10:08:00 EST, Height,53.6, kg, [...]
--- OUTSIDE RECORDS SUMMARY | 2024-05-04 13:23 | XMS_ITS | Continuity of Care Document ---
Author Organization [facility] Address [address] [facility], [address], [address] [place] [address]- Care Team Providers Care Snubber Name Role Phone Renzo GRAHAM, Declan Hou Primary Care Physician Encounter [facility] Date(s): 01/29/21 - 02/05/21 [facility] [address], [address], [address] [place] [id number] Attending Physician: Anita Tejeda DNP Allergies, Adverse Reactions, Alerts Substance Reaction Severity [...] Note: given w/out incident/VIS given 7Result Comment: [id number], [id number] 8[facility] 9Result Comment: [07/21/2014] given w/out incident 10Admin Note: [facility] INFO GIVEN TO PATIENT 11Result Comment: lot #[id number] 12Admin Note: [facility] albuterol 0.083% inhalation solution 3 mL = 2.5 mg, Inhalation, Every 6 hours, PRN for wheezing, # 360 mL, 8 Refills, Maintenance, 07/07/19 14:14:00 EDT, Solution, ICD 10 J44.9, PLEASE BILL THROUGH MED B [id number] Start Date: 07/07/19 Status: Ordered alendronate 70 [...] 11:34:00 EDT, Suspension, Route to Pharmacy Electronically, [id number], [facility]/pharmacy #2024,... Start Date: 03/06/20 Status: Ordered calcium-vitamin D 600 mg-400 intl units oral tablet See Instructions, 1 tablet By Mouth twice daily, # 60 tablet, 11 Refills, Maintenance, 07/04/20 15:50:00 EDT, Tablet, [facility]/pharmacy #2024, 1 tablet By [...] 11/21/20 12:23:00 EST, Route to Pharmacy Electronically, [facility]/pharmacy #2024, 165, cm, 05/17/20 16:00:00 EDT, Height, 66.5,... Start Date: 11/21/20 Stop Date: 11/21/21 Status: Ordered docusate sodium 100 mg oral capsule 2 capsule, By Mouth, 2 times a day, PRN NEEDED FOR CONSTIPATION FOR, # 120 capsule, 11 Refills, Maintenance, 11/21/20 16:36:00 EST, [facility] STORE [facility]90[address], 165, cm, 05/17/20 16:00:00 EDT, Height, 66.5, [...] 01/30/21 11:23:00 EDT, Route to Pharmacy Electronically, [facility] STORE 47773, 165, cm, 12/20/20 10:40:00 EST, Height, 66.7, kg, 01/18/21 9:32:00 EDT, Dry Weight Start Date: 01/30/21 Status: Ordered losartan 50 mg oral tablet 50 mg, 1, tablet, By Mouth, Daily, # 30 tablet, Refills 6, Tot. Refills 6, Maintenance, 10/05/20 10:44:00 EST, Route to Pharmacy Electronically, [facility]/pharmacy #2025, Partial fill upon [...] Refills, Acute, 05/22/20 11:58:00 EDT, [facility], 165, cm, 05/17/20 16:00:00 EDT, Height, 67, [...] Maintenance, 03/02/2017:09:00 EDT, Route to Pharmacy Electronically, [facility]/pharmacy #2024 Tablet, 165, cm, 01/27/20 8:11:00 EDT, Height, 53.6, kg, 10/14/19 10:56:00 EST, Dry... Start Date: 03/02/20 Status: Ordered Ventolin HFA 108 mcg/inh inhalation aerosol with adapter 2 puffs, Inhalation, 4 times a day, PRN for wheezing, # 18 Gm, 11 Refills, Maintenance, 01/13/20 11:40:00 EDT, Aerosol, [facility]/pharmacy #2024, 165, cm, 11/17/19 10:08:00 EST, Height, 53.6, kg, 10/14/19 10:56:00 EST, Dry Weight Start Date: 01/13/20 Status: Ordered Yupelri 175 mcg/3 mL inhalation solution = 175 mcg, Inhalation, Daily, j44.9 please bill through med B, # 120 mL, 3 Refills, Maintenance, 01/22/21 8:54:00 EDT, [facility]/pharmacy #2024, ICD 10 J44.9, PLEASE BILL THROUGH MED B [id number], 165, cm, 12/20/20 10:40:00 EST, Height, 66.7, kg, ... Start Date: 01/22/21 Status: Ordered Zithromax 250 mg oral tablet See Instructions, 1 tablet By Mouth Daily on thursday, thursday, and thursday, # 12 tablet, 11 Refills, Maintenance, 07/11/20 12:50:00 EDT, Tablet, [facility]/pharmacy #2024, 165, cm, 05/17/20 [...]
--- OUTSIDE RECORDS SUMMARY | 2024-05-04 13:23 | XMS_ITS | Continuity of Care Document ---
Author Organization [facility] Address [address] [place] [address]- Care Team Providers Care Neon Installer Name Role Phone Declan Muller MD Primary Care Physician Encounter [facility] Date(s): 07/04/20 - 07/11/20 [facility] [address] [place] [address]- [facility] Encounter Diagnosis Cough(Discharge Diagnosis) - 07/04/20 Chronic obstructive lung disease(Discharge Diagnosis) - 07/04/20 Immunodeficiency disorder, hypogammaglobulinemia(Discharge Diagnosis) - 07/04/20 Attending Physician: Declan Muller MD Allergies, Adverse [...] Note: given w/out incident/VIS given 7Result Comment: [id number], [id number] 8[facility] 9Result Comment: [07/21/2014] given w/out incident 10Admin Note: [facility] INFO GIVEN TO PATIENT 11Result Comment: lot #[id number] 12Admin Note: [facility] albuterol 0.083% inhalation solution 3 mL = 2.5 mg, Inhalation, Every 6 hours, PRN for wheezing, # 360 mL, 8 Refills, Maintenance, 07/07/19 14:14:00 EDT, Solution, ICD 10 J44.9, PLEASE BILL THROUGH MED B [id number] Start Date: 07/07/19 Status: Ordered alendronate 70 [...] 11:34:00 EDT, Suspension, Route to Pharmacy Electronically, [id number], [facility]/pharmacy #2024,... Start Date: 03/06/20 Status: Ordered calcium-vitamin D 600 mg-400 intl units oral tablet See Instructions, 1 tablet By Mouth twice daily, # 60 tablet, 11 Refills, Maintenance, 07/04/20 15:50:00 EDT, Tablet, [facility]/pharmacy #2024, 1 tablet By Mouth [...] Replace Required Details, Route to Pharmacy Electronically, [facility]/pharmacy #2024... Start Date: 03/02/20 Status: Ordered doxycycline hyclate 100 mg oral capsule 1 capsule = 100 mg, By Mouth, 2 times a day, for 10 days, # 20 capsule, 0 Refills, Acute 07/14/20 12:49:00 EDT, 07/04/20 12:49:00 EDT, Capsule, [facility]/pharmacy #2024, 165, cm, 05/17/20 16:00:00 [...] 02/22/20 10:31:00 EDT, Route to Pharmacy Electronically, [facility]/pharmacy #202, 165, cm, 01/27/20 8:11:00 EDT, Height, 53.6, kg, 10/14/19 10:56:00 EST, Dry... Start Date: 02/22/20 Status: Ordered lactulose 10 gm/15 ml oral syrup 30 mL = 20 Gm, By Mouth, Daily, PRN as needed for constipation, for 30 days, # 1,000 mL, 2 Refills,Acute 08/15/20 16:25:00 EDT, 05/17/20 16:25:00 EDT, Syrup, [facility]/pharmacy #2024, 30 mL By Mouth [...] 07/16/20 17:00:00 EDT, 06/18/20 8:51:00 EDT, Tablet, [facility]/pharmacy #202... Start Date: 06/18/20 Stop Date: 07/16/20 Status: Ordered naproxen 500 mg oral tablet 1 tablet = 500 mg, By Mouth, 2 times a day, PRN joint or muscle pain, # 60 tablet, 11 Refills, Acute 06/11/21 11:08:00 EDT, 06/11/20 11:08:00 EDT, Tablet, [facility]/pharmacy #2025, 165, cm, 05/17/20 16:00:00 EDT, [...] 17:00:00 EDT, 06/18/20 8:51:00 EDT, Tablet, [facility], 165, cm... Start Date: 06/18/20 Stop [...] Refills, Acute, 05/22/20 11:58:00 EDT, [facility], 165, cm, 05/17/20 16:00:00 EDT, Height, 67, [...] Maintenance, 03/02/2017:09:00 EDT, Route to Pharmacy Electronically, [facility]/pharmacy #2024 Tablet, 165, cm, 01/27/20 8:11:00 EDT, Height, 53.6, kg, 10/14/19 10:56:00 EST, Dry... Start Date: 03/02/20 Status: Ordered triamcinolone 0.1% topical cream 1 application, Topically, 3 times a day, PRN psoriasis rash, # 60 Gm, 5 Refills, Acute 01/01/21 10:47:00 EDT, 01/02/20 10:46:00 EDT, Cream, [facility]/pharmacy #2024, 1 application Topically 3 times a day,PRN:psoriasis rash, 165, cm, 11/17/19 10:08:00 EST, H... Start Date: 01/02/20 Stop Date: 01/01/21 Status: Ordered Ventolin HFA 108 mcg/inh inhalation aerosol with adapter 2 puffs, Inhalation, 4 times a day, PRN for wheezing, # 18 Gm, 11 Refills, Maintenance, 01/13/20 11:40:00 EDT, Aerosol, [facility]/pharmacy #2024, 165, cm, 11/17/19 10:08:00 EST, Height, 53.6, kg, 10/14/19 10:56:00 EST, Dry Weight Start Date: 01/13/20 Status: Ordered Yupelri 175 mcg/3 mL inhalation solution = 175 mcg, Inhalation, Daily, j44.9, # 360 mL, 6 Refills, Maintenance, 03/06/20 11:37:00 EDT, [facility]/pharmacy #2024, ICD 10 J44.9, PLEASE BILL THROUGH MED B [id number], 165, cm, 01/27/20 8:11:00 EDT, Height, 53.6, [...] Status Clinical Service Informant Cough Discharge Diagnosis 07/04/20 Chronic obstructive lung disease Discharge Diagnosis 07/04/20 Immunodeficiency disorder, hypogammaglobulinemia Discharge Diagnosis 07/04/20 Social History Social History Type Response Smoking Status Former smoker, quit more than 30 days ago; Other: quit 20 years ago; entered on: 09/24/19 Sex
--- OUTSIDE RECORDS SUMMARY | 2024-05-04 13:23 | XMS_ITS | Continuity of Care Document ---
Author Organization [facility] Address [address] [place] [address]- Care Team Providers Care Executive Director Of Nursing Name Role Phone Declan Muller MD Primary Care Physician Encounter [facility] Date(s): 02/27/21 - 03/29/21 [facility] [address] [place], [place] [address] Allergies, Adverse Reactions, Alerts Substance [...] Note: given w/out incident/VIS given 7Result Comment: [id number], [id number] 8[facility] 9Result Comment: [07/21/2014] given w/out incident 10Admin Note: [facility] INFO GIVEN TO PATIENT 11Result Comment: lot #[id number] 12Admin Note: [facility] albuterol 0.083% inhalation solution 3 mL = 2.5 mg, Inhalation, Every 6 hours, PRN for wheezing, # 360 mL, 8 Refills, Maintenance, 07/07/19 14:14:00 EDT, Solution, ICD 10 J44.9, PLEASE BILL THROUGH MED B [id number] Start Date: 07/07/19 Status: Ordered alendronate 70 [...] 11:34:00 EDT, Suspension, Route to Pharmacy Electronically, [id number], [facility]/pharmacy #202,... Start Date: 03/06/20 Status: Ordered calcium-vitamin D 600 mg-400 intl units oral tablet See Instructions, 1 tablet By Mouth twice daily, # 60 tablet, 11 Refills, Maintenance, 07/04/20 15:50:00 EDT, Tablet, [facility]/pharmacy #2024, 1 tablet By Mouth twice [...] 11/21/20 12:23:00 EST, Route to Pharmacy Electronically, [facility]/pharmacy #2024, 165, cm, 05/17/20 16:00:00 EDT, Height, 66.5,... Start Date: 11/21/20 Stop Date: 11/21/21 Status: Ordered docusate sodium 100 mg oral capsule 2 capsule, By Mouth, 2 times a day, PRN NEEDED FOR CONSTIPATION FOR, # 120 capsule, 11 Refills, Maintenance, 11/21/20 16:36:00 EST, [facility] STORE [address], 165, cm, 05/17/20 16:00:00 EDT, Height, 66.5, [...] 01/30/21 11:23:00 EDT, Route to Pharmacy Electronically, [facility] STORE 82605, 165, cm, 12/20/20 10:40:00 EST, Height, 66.7, [...] 04/22/21 17:00:00 EDT, 03/22/21 9:01:00 EDT, Tablet, [facility]/pharmacy #202... Start Date: 03/22/21 Stop Date: 04/22/21 Status: Ordered naproxen 500 mg oral tablet 1 tablet = 500 mg, By Mouth, 2 times a day, PRN joint or muscle pain, # 60 tablet, 11 Refills, Acute 06/11/21 11:08:00 EDT, 06/11/20 11:08:00 EDT, Tablet, [facility]/pharmacy #2024, 165, cm, 05/17/20 16:00:00 EDT, [...] 04/21/21 17:00:00 EDT, 03/22/21 9:01:00 EDT, Tablet, [facility]/pharmacy #202, refill... Start Date: 03/22/21 Stop [...] tablet, 3 Refills, Maintenance, 07/04/20 15:51:00 EDT, [facility]/pharmacy #2024, 165, cm, 05/17/20 16:00:00 EDT, Height, 67, kg, 05/01/20 10:40:00 EDT, Dry Weight Start Date: 07/04/20 Status: Ordered Senna 8.6 mg oral tablet 8.6 mg, 1, tablet, By Mouth, Daily, # 30 tablet, Refills 11, Tot. Refills 11, Maintenance, 03/02/2017:09:00 EDT, Route to Pharmacy Electronically, [facility]/pharmacy #2024 Tablet, 165, cm, 01/27/20 8:11:00 [...] 10 J44.9, PLEASE BILL THROUGH MED B [id number], 165, cm, 12/20/20 10:40:00 EST, Height, 66.7, [...]
--- OUTSIDE RECORDS SUMMARY | 2024-05-04 13:23 | XMS_ITS | Continuity of Care Document ---
Author Organization [facility] Address [address] [place] [address]- Care Team Providers Care Video Production Engineer Name Role Phone Declan Muller MD Primary Care Physician [phone] Encounter [facility] [place] Date(s): 10/05/20 - 10/12/20 [facility] [place] [address] [place] [address]- Attending Physician: Julio Sherwood MD Admitting Physician: [...] Note: given w/out incident/VIS given 7Result Comment: [id number], [id number] 8[facility] 9Result Comment: [07/21/2014] given w/out incident 10Admin Note: [facility] INFO GIVEN TO PATIENT 11Result Comment: lot #[id number] 12Admin Note: [facility] albuterol 0.083% inhalation solution 3 mL = 2.5 mg, Inhalation, Every 6 hours, PRN for wheezing, # 360 mL, 8 Refills, Maintenance, 07/07/19 14:14:00 EDT, Solution, ICD 10 J44.9, PLEASE BILL THROUGH MED B [id number] Start Date: 07/07/19 Status: Ordered alendronate 70 [...] 11:34:00 EDT, Suspension, Route to Pharmacy Electronically, [id number], [facility]/pharmacy #2024,... Start Date: 03/06/20 Status: Ordered calcium-vitamin D 600 mg-400 intl units oral tablet See Instructions, 1 tablet By Mouth twice daily, # 60 tablet, 11 Refills, Maintenance, 07/04/20 15:50:00 EDT, Tablet, [facility]/pharmacy #2024, 1 tablet By Mouth twice daily, 165, cm, 05/17/20 16:00:00 EDT, Height, 67, kg, 05/01/20 10:40:00 EDT, Dry Weight Start Date: 07/04/20 Status: Ordered cyclobenzaprine 10 mg oral tablet 1, tablet, By Mouth, Daily, PRN, # 30 tablet, Refills 5, Tot. Refills 0, Acute, NEEDED FOR PAIN,10/10/20 16:50:00 EST, Route to Pharmacy Electronically, [facility] STORE 62555, 165, cm, 05/17/20 16:00:00 EDT, Height, 66.5, kg, 09/21/20 8:46:00 EST, Dry W... Start Date: 10/10/20 Status: Ordered docusate sodium 100 mg oral capsule See Instructions, PRN, 3 capsule By Mouth 2 times a day 30 days, # 180 each, Refills 11, Tot. Refills 11, Maintenance, for constipation, 03/02/20 17:08:00 EDT, Instructions Replace Required Details, Route to Pharmacy Electronically, [facility]/pharmacy #2024... Start Date: 03/02/20 Status: [...] 02/22/20 10:31:00 EDT, Route to Pharmacy Electronically, [facility]/pharmacy #2024, 165, cm, 01/27/20 8:11:00 EDT, Height, 53.6, kg, 10/14/19 10:56:00 EST, Dry... Start Date: 02/22/20 Status: Ordered losartan 50 mg oral tablet 50 mg, 1, tablet, By Mouth, Daily, # 30 tablet, Refills 6, Tot. Refills 6, Maintenance, 10/05/20 10:44:00 EST, [facility] fill upon patient request if [...] 10/06/21 17:00:00 EST, 10/08/20 8:27:00 EST, Tablet, [facility]/pharmacy #202... Start Date: 10/08/20 Stop Date: 10/06/21 Status: Ordered naproxen 500 mg oral tablet 1 tablet = 500 mg, By Mouth, 2 times a day, PRN joint or muscle pain, # 60 tablet, 11 Refills, Acute 06/11/21 11:08:00 EDT, 06/11/20 11:08:00 EDT, Tablet, [facility]/pharmacy #2024, 165, cm, 05/17/20 16:00:00 EDT, [...] 11/06/20 17:00:00 EST, 10/08/20 8:27:00 EST, Tablet, [facility]/pharmacy #2024, 165, cm... Start Date: 10/08/20 Stop Date: [...] Refills, Acute, 05/22/20 11:58:00 EDT, [facility], 165, cm, 05/17/20 16:00:00 EDT, Height, 67, kg, 05/01/20 10:40:00 EDT, Dry Weight Start Date: 05/22/20 Status: Ordered Readi-Cat 2 oral suspension See Instructions, As per recommendations of radiology 1 the evening before when the morning of procedure, # 2 pack/packet, 0 Refills, Maintenance, 05/17/20 16:25:00 EDT, [facility]/pharmacy #2024, As per recommendations of radiology 1 the evening before when... Start Date: 05/17/20 Status: Ordered roflumilast 250 mcg oral tablet 1 tablet = 250 mcg, By Mouth, Daily, # 90 tablet, 3 Refills, Maintenance, 07/04/20 15:51:00 EDT, [facility]/pharmacy #2024, 165, cm, 05/17/20 16:00:00 EDT, Height, 67, kg, 05/01/20 10:40:00 EDT, Dry Weight Start Date: 07/04/20 Status: Ordered Senna 8.6 mg oral tablet 8.6 mg, 1, tablet, By Mouth, Daily, # 30 tablet, Refills 11, Tot. Refills 11, Maintenance, 03/02/2017:09:00 EDT, Route to Pharmacy Electronically, [facility]/pharmacy #2024 Tablet, 165, cm, 01/27/20 8:11:00 EDT, Height, 53.6, kg, 10/14/19 10:56:00 EST, Dry... Start Date: 03/02/20 Status: Ordered triamcinolone 0.1% topical cream 1 application, Topically, 3 times a day, PRN psoriasis rash, # 60 Gm, 5 Refills, Acute 01/01/21 10:47:00 EDT, 01/02/20 10:46:00 EDT, Cream, [facility]/pharmacy #202, 1 application Topically 3 times [...] 10 J44.9, PLEASE BILL THROUGH MED B [id number], 165, cm, 01/27/20 8:11:00 EDT, Height, 53.6, kg, 10/14/19 10:56:00 EST, Dry Weight Start Date: 03/06/20 Status: Ordered Zithromax 250 mg oral tablet See Instructions, 1 tablet By Mouth Daily on thursday, thursday, and thursday, # 12 tablet, 11 Refills, Maintenance, 07/11/20 12:50:00 EDT, Tablet, [facility], 165, cm, 05/17/20 [...]
--- OUTSIDE RECORDS SUMMARY | 2024-05-04 13:23 | XMS_ITS | Continuity of Care Document ---
Author Organization [facility] Address [address], [address], [address] [place] [address]- Care Team Providers Care Nanofabrication Specialist Name Role Phone Declan Muller MD Primary Care Physician Encounter [facility] Date(s): 01/29/21 - 02/28/21 [facility] [address], [address], [address] [place] [id number] Attending Physician: Kaleb De Leon Admitting [...] 12 08/19/08 Given 1Result Comment: DONE AT [facility] 2Result Comment: [06/22/2018] [facility] 5Admin Note: done @ clinic 6Admin Note: given w/out incident/VIS given 7Result Comment: [id number], [id number] [facility] 9Result Comment: [07/21/2014] given [...] 10 J44.9, PLEASE BILL THROUGH MED B [id number] Start Date: 07/07/19 Status: Ordered alendronate 70 [...] 11:34:00 EDT, Suspension, Route to Pharmacy Electronically, [id number], [facility]/pharmacy #2024,... Start Date: 03/06/20 Status: Ordered calcium-vitamin D 600 mg-400 intl units oral tablet See Instructions, 1 tablet By Mouth twice daily, # 60 tablet, 11 Refills, Maintenance, 07/04/20 15:50:00 EDT, Tablet, [facility]/pharmacy #2024, 1 tablet By Mouth twice [...] 11/21/20 12:23:00 EST, Route to Pharmacy Electronically, [facility]/pharmacy #2024, 165, cm, 05/17/20 16:00:00 EDT, Height, 66.5,... Start Date: 11/21/20 Stop Date: 11/21/21 Status: Ordered docusate sodium 100 mg oral capsule 2 capsule, By Mouth, 2 times a day, PRN NEEDED FOR CONSTIPATION FOR, # 120 capsule, 11 Refills, Maintenance, 11/21/20 16:36:00 EST, [facility] STORE 70615, 165, cm, 05/17/20 16:00:00 EDT, Height, 66.5, [...] 01/30/21 11:23:00 EDT, Route to Pharmacy Electronically, [facility] STORE 67429, 165, cm, 12/20/20 10:40:00 EST, Height, 66.7, kg, 01/18/21 9:32:00 EDT, Dry Weight Start Date: 01/30/21 Status: Ordered losartan 50 mg oral tablet 50 mg, 1, tablet, By Mouth, Daily, # 30 tablet, Refills 6, Tot. Refills 6, Maintenance, 10/05/20 10:44:00 EST, Route to Pharmacy Electronically, [facility]/pharmacy #2025, Partial fill upon patient request [...] 17:00:00 EDT, 02/22/21 8:35:00 EDT, Tablet, [facility] Start Date: 02/22/21 Stop Date: 03/25/21 [...] EDT, 02/22/21 8:35:00 EDT, Tablet, [facility], [facility]ill... Start Date: 02/22/21 Stop Date: 03/25/21 Status: Ordered pantoprazole 40 mg oral delayed release tablet 1 tablet, By Mouth, Daily, PRN NEEDED FOR STOMACH PAIN, # 90 tablet, 0 Refills, Maintenance, 02/27/21 7:47:00 EDT, 165, cm, 12/20/20 10:40:00 EST, Height, 66.7, kg, 01/18/21 9:32:00 EDT, Dry Weight Start Date: 02/27/21 Status: Ordered pantoprazole 40 mg oral delayed [...] Refills, Acute, 05/22/20 11:58:00 EDT, [facility], 165, cm, 05/17/20 16:00:00 EDT, Height, 67, [...] tablet, 3 Refills, Maintenance, 07/04/20 15:51:00 EDT, [facility]/pharmacy #2024, 165, cm, 05/17/20 16:00:00 EDT, Height, 67, kg, 05/01/20 10:40:00 EDT, Dry Weight Start Date: 07/04/20 Status: Ordered Senna 8.6 mg oral tablet 8.6 mg, 1, tablet, By Mouth, Daily, # 30 tablet, Refills 11, Tot. Refills 11, Maintenance, 03/02/2017:09:00 EDT, Route to Pharmacy Electronically, [facility]/pharmacy #2024 Tablet, 165, cm, 01/27/20 8:11:00 EDT, Height, 53.6, kg, 10/14/19 10:56:00 EST, Dry... Start Date: 03/02/20 Status: Ordered Ventolin HFA 108 mcg/inh inhalation aerosol with adapter 2 puffs, Inhalation, 4 times a day, PRN for wheezing, # 18 Gm, 11 Refills, Maintenance, 01/13/20 11:40:00 EDT, Aerosol, [facility]/pharmacy #2024, 165, cm, 11/17/19 10:08:00 EST, Height, 53.6, kg, 10/14/19 10:56:00 EST, Dry Weight Start Date: 01/13/20 Status: Ordered Yupelri 175 mcg/3 mL inhalation solution = 175 mcg, Inhalation, Daily, j44.9 please bill through med B, # 120 mL, 3 Refills, Maintenance, 01/22/21 8:54:00 EDT, [facility], ICD 10 J44.9, PLEASE BILL THROUGH MED B [id number], 165, cm, 12/20/20 10:40:00 EST, Height, 66.7, kg, ... Start Date: 01/22/21 Status: Ordered Zithromax 250 mg oral tablet See Instructions, 1 tablet By Mouth Daily on thursday, thursday, and thursday, # 12 tablet, 11 Refills, Maintenance, 07/11/20 12:50:00 EDT, Tablet, [facility]/pharmacy #2025, 165, cm, 05/17/20 16:00:00 EDT, [...]
--- OUTSIDE RECORDS SUMMARY | 2024-05-04 13:23 | XMS_ITS | Continuity of Care Document ---
Author Organization [facility] Address [address] [place] [address]- Care Team Providers Care Health Diagnostics Teacher Name Role Phone Renzo GRAHAM, Declan Hou Primary Care Physician En[place] [facility] Date(s): 01/23/22 - 02/22/22 [facility] [address] [place] [address]- Attending Physician: Kaleb De Leon Admitting Physician: [...] vaccine 12/02/09 Given pneumococcal 23-valent vaccine 11 2/14/10 Given Influenza Vaccine (oldterm) 12 08/19/08 Given 1Result Comment: DONE AT [facility] 2Result Comment: [06/22/2018] given at [facility] 3Location History: [facility] 4Location History: [facility] 5Admin Note: done @ clinic 6Admin Note: given w/out incident/VIS given 7Result Comment: [id number], [id number] [facility] 9Result Comment: [07/21/2014] given w/out incident 10Admin Note: CDC INFO GIVEN TO PATIENT 11Result Comment: lot #[id number] 12Admin Note: [facility] albuterol 0.083% inhalation solution 3 mL = 2.5 mg, Inhalation, Every 6 hours, PRN for wheezing, # 360 mL, 8 Refills, Maintenance, 07/07/19 14:14:00 EDT, Solution, ICD 10 J44.9, PLEASE BILL THROUGH MED B [id number] Start Date: 07/07/19 Status: Ordered alendronate 70 [...] 11 Refills, Maintenance, 07/16/21 15:56:00 EDT, [facility], Partial fill upon patient request if the prescription is for a schedule II opioid drug., 165, cm... Start Date: 07/16/21 Status: Ordered Brovana 15 mcg/2 mL inhalation solution 1 each, Neb, 2 times a day, not to exceed 2 doses/day do not swallow, # 60 each, 1 Refills, Maintenance, 04/24/20 16:53:00 EDT, Solution, [facility]/pharmacy #2024, ICD Code J44.9, 165, cm, 03/12/20 8:39:00EDT, Height, 70.7, kg, 03/08/20 16:16:00 EDT, Dry... Start Date: 04/24/20 Status: Ordered budesonide 0.25 mg/2 mL inhalation suspension 0.25 mg, 2, mL, Neb, 2 times a day, for COPD J44.9. rinse mouth after use, # 120 mL, Refills 6, Tot. Refills 6, Maintenance, 03/06/20 11:34:00 EDT, Suspension, Route to Pharmacy Electronically, [id number], [facility]/pharmacy #2024,... Start Date: 03/06/20 Status: Ordered calcium-vitamin D 600 mg-400 intl units oral tablet See Instructions, 1 tablet By Mouth twice daily, # 60 tablet, 11 Refills, Maintenance, 10/28/21 10:33:00 EST, Tablet, [facility]/pharmacy #2024, 1 tablet By Mouth twice daily, 165, cm, 10/25/21 17:56:00 EST, Height, 54.5, kg, 10/25/21 17:05:00 EST, Dry Weight Start Date: 10/28/21 Status: Ordered Citrate of Magnesia 8.85% oral liquid See Instructions, 30 mL By Mouth Once daily as needed for constipation, # 300 mL, 1 Refills, Soft Stop, 10/02/21 17:13:00 EST, Liquid, [facility]/pharmacy #2024, Partial fill upon patient request if the prescription is for a schedule II opioid drug., 30 mL B... Start Date: 10/02/21 Status: Ordered cyclobenzaprine 10 mg oral tablet 1, tablet, By Mouth, Daily, PRN, # 30 tablet, Refills 11, Tot. Refills 11, Physician Stop 12/02/22 16:09:00 EST, NEEDED FOR PAIN, 12/02/21 16:09:00 EST, Route to Pharmacy Electronically, [facility]/pharmacy #2024, 165, cm, 10/25/21 17:56:00 EST, Height, 5... Start Date: 12/02/21 Stop Date: 12/02/22 Status: Ordered docusate sodium 100 mg oral capsule 2 capsule, By Mouth, 2 times a day, PRN NEEDED FOR CONSTIPATION FOR, # 120 capsule, 5 Refills, Maintenance, 12/30/21 10:25:00 EDT, [facility]/pharmacy #2024, 165, cm, 12/23/21 9:22:00 EST, Height, 54.5, kg, 10/25/21 17:05:00 EST, Dry Weight Start Date: 12/30/21 Stop Date: 06/28/22 Status: Ordered duloxetine 20 mg oral enteric coated capsule 1 capsule = 20 mg, By Mouth, 2 times a day, # 60 each, 11 Refills, Maintenance, 07/16/21 15:55:00 EDT, Capsule, [facility]/pharmacy #2024, Partial fill upon patient request if the prescription is for a schedule II opioid drug., 165, cm, 06/05/21 10:01:00 EDT... Start Date: 07/16/21 Status: Ordered gabapentin 400 mg oral capsule 1, capsule, By Mouth, 3 times a day, # 90 each, Refills 11, Tot. Refills 11, Maintenance, 09/09/21 11:35:00 EST, Route to Pharmacy Electronically, [facility]/pharmacy #202, dose increase, refill when needed, 165, cm, 09/09/21 11:19:00 EST, Height, 61.4, kg,... Start Date: 09/09/21 Status: Ordered Linzess 145 mcg oral capsule See Instructions, 1 capsule By Mouth 2 times a day, # 60 capsule, 3 Refills, Maintenance, 02/21/22 14:31:00 EDT, Capsule, [facility]/pharmacy #202, Partial fill upon patient request if the prescription is for a schedule II opioid drug., 165, cm, 02/21/22 9:... Start Date: 02/21/22 Status: Ordered methadone 10 mg oral tablet See Instructions, PRN for pain, 2 tablets By Mouth in the morning, 1 tablet in the afternoon, and 3tablets by mouth in the evening 28 day schedule, # 168 each, 0 Refills, Acute 01/29/23 13:52:00 EDT, 01/29/22 13:52:00 EDT, Tablet, [facility]/pharmacy #20... Start Date: 01/29/22 Stop Date: 01/29/23 Status: Ordered oxyCODONE 10 mg oral tablet 2 tablet = 20 mg, By Mouth, Every 4 hours, PRN as needed for pain, 28 day prescription patient may fill for less than quantity prescribed, # 224 tablet, 0 Refills, Acute 01/29/23 13:53:00 EDT, 01/29/22 13:53:00 EDT, Tablet, [facility], [facility]ill... Start Date: 01/29/22 Stop Date: [...] 10 J44.9, PLEASE BILL THROUGH MED B [id number], 165, cm, 06/05/21 10:01:00 EDT, Height, 61.4, [...]
--- OUTSIDE RECORDS SUMMARY | 2024-05-04 13:23 | XMS_ITS | Continuity of Care Document ---
Author Organization [facility] Address [address] [place] [address]- Care Team Providers Care Practice Nurse Name Role Phone Declan Muller MD Primary Care Physician [place] [facility] Date(s): 04/12/22 - 08/22/22 [facility] [address] [place], [place] [address] Attending Physician: Declan Muller MD [...] Vaccine (oldterm) 13 08/19/08 Given 1Result Comment: [facility] [id number] 2Result Comment: [06/22/2018] given at [facility] 3Location History: [facility] 4Location History: [facility] 5Admin Note: done @ clinic 6Admin Note: given w/out incident/VIS given 7Result Comment: [id number], [id number] 8Result Comment: DONE AT [facility] 10Result Comment: [07/21/2014] given w/out incident 11Admin Note: [facility] INFO GIVEN TO PATIENT 12Result Comment: lot #[id number] 13Admin Note: [facility] albuterol 0.083% inhalation solution 3 mL = 2.5 mg, Inhalation, Every 6 hours, PRN for wheezing, # 360 mL, 8 Refills, Maintenance, 07/07/19 14:14:00 EDT, Solution, ICD 10 J44.9, PLEASE BILL THROUGH MED B [id number] Start Date: 07/07/19 Status: Ordered albuterol 90 [...] 11:34:00 EDT, Suspension, Route to Pharmacy Electronically, [id number], [facility]/pharmacy #202,... Start Date: 03/06/20 Status: Ordered calcium-vitamin D 600 mg-400 intl units oral tablet See Instructions, 1 tablet By Mouth twice daily, # 60 tablet, 11 Refills, Maintenance, 10/28/21 10:33:00 EST, Tablet, [facility]/pharmacy #2024, 1 tablet By Mouth twice [...] 11 Refills,Maintenance, 08/19/22 11:00:00 EDT, EC Tablet, [facility]/pharmacy #202, Partial fill upon patient request [...] Replace Required Details, Route to Pharmacy Electronically, [facility]/pharmacy #0447, dose increase, refill when ne... Start Date: 07/30/22 Status: Ordered Linzess 145 mcg oral capsule 1 capsule = 145 mcg, By Mouth, Daily, # 90 capsule, 3 Refills, Maintenance, 07/18/22 14:14:00 EDT, Capsule, [facility]/pharmacy #0447, Partial fill upon patient request if the prescription is for a scheduleII opioid drug., 165, cm, 04/17/22 13:32:00 EDT, He... Start Date: 07/18/22 Status: Ordered Linzess 290 mcg oral capsule 1 capsule = 290 mcg, By Mouth, Daily, # 30 capsule, 3 Refills, Maintenance, 06/27/22 13:21:00 EDT, Capsule, [facility]/pharmacy #2025, Partial fill upon patient request if the prescription is for a scheduleII opioid drug., 165, cm, 04/17/22 13:32:00 EDT, He... Start Date: 06/27/22 Status: Ordered Linzess 290 mcg oral capsule 1 capsule, By Mouth, Daily, # 30 capsule, 3 Refills, Maintenance, 06/24/22 12:21:00 EDT, [facility], 165, cm, 04/17/22 13:32:00 EDT, Height, 60.6, kg, 04/18/22 8:40:00 EDT, Dry Weight Start Date: 06/24/22 Status: Ordered methadone 10 mg oral tablet See Instructions, PRN for pain, 2 tablets By Mouth in the morning, 1 tablet in the afternoon, and 3tablets by mouth in the evening 28 day schedule, # 168 each, 0 Refills, Acute 08/18/23 16:50:00 EDT, 08/18/22 16:50:00 EDT, Tablet, [facility]/pharmacy #20... Start Date: 08/18/22 Stop Date: 08/18/23 Status: Ordered nystatin 303768 u/ml oral suspension 5 mL, By Mouth, 4 times a day, # 480 mL, 1 Refills, [facility], 165, cm, 03/28/22 11:14:00 EDT, Height, 60.4, kg, 03/06/22 10:48:00 EDT, Dry Weight Start Date: 04/17/22 Status: Ordered oxyCODONE 10 mg oral tablet 2 tablet = 20 mg, By Mouth, Every 4 hours, PRN as needed for pain, 28 day prescription patient may fill for less than quantity prescribed, # 224 tablet, 0 Refills, Acute 08/18/23 16:51:00 EDT, 08/18/22 16:51:00 EDT, Tablet, [facility]/pharmacy #2025, refill... Start Date: 08/18/22 Stop Date: [...] 10 J44.9, PLEASE BILL THROUGH MED B [id number], 165, cm, 06/05/21 10:01:00 EDT, Height, 61.4, [...] on: 09/24/19 Sex Patient Care team information Personnel Name: Renzo GRAHAM, Declan Hou Address: Address: [address] [place] [address] Adult [facility] Pediatric Medicine [address]
--- OUTSIDE RECORDS SUMMARY | 2024-05-04 13:23 | XMS_ITS | Continuity of Care Document ---
Author Organization [facility] Address [address] [place] [address]- Care Team Providers Care Community Theater Actor Name Role Phone Declan Muller MD Primary Care Physician Encounter [facility] Date(s): 05/28/21 - 06/27/21 [facility] [address] [place] [id number]- [place] Allergies, Adverse Reactions, Alerts Substance Reaction [...] Note: given w/out incident/VIS given 7Result Comment: [id number], [id number] [facility] 9Result Comment: [07/21/2014] given w/out incident 10Admin Note: CDC INFO GIVEN TO PATIENT 11Result Comment: lot #[id number] 12Admin Note: [facility] albuterol 0.083% inhalation solution 3 mL = 2.5 mg, Inhalation, Every 6 hours, PRN for wheezing, # 360 mL, 8 Refills, Maintenance, 07/07/19 14:14:00 EDT, Solution, ICD 10 J44.9, PLEASE BILL THROUGH MED B [id number] Start Date: 07/07/19 Status: Ordered alendronate 70 [...] 07/15/21 17:00:00 EDT, 06/14/21 8:22:00 EDT, Tablet, [facility]/pharmacy #2024, 165, cm, 06/05/21 10:01:00 EDT, [...] 11:34:00 EDT, Suspension, Route to Pharmacy Electronically, [id number], [facility]/pharmacy #202,... Start Date: 03/06/20 Status: Ordered calcium-vitamin D 600 mg-400 intl units oral tablet See Instructions, 1 tablet By Mouth twice daily, # 60 tablet, 11 Refills, Maintenance, 07/04/20 15:50:00 EDT, Tablet, [facility]/pharmacy #2024, 1 tablet By Mouth [...] 11/21/20 12:23:00 EST, Route to Pharmacy Electronically, [facility]/pharmacy #2024, 165, cm, 05/17/20 16:00:00 EDT, Height, 66.5,... Start Date: 11/21/20 Stop Date: 11/21/21 Status: Ordered docusate sodium 100 mg oral capsule 2 capsule, By Mouth, 2 times a day, PRN NEEDED FOR CONSTIPATION FOR, # 120 capsule, 11 Refills, Maintenance, 11/21/20 16:36:00 EST, [facility] STORE 86260, 165, cm, 05/17/20 16:00:00 EDT, Height, 66.5, [...] 01/30/21 11:23:00 EDT, Route to Pharmacy Electronically, [facility] STORE 69934, 165, cm, 12/20/20 10:40:00 EST, Height, 66.7, [...] 07/15/21 17:00:00 EDT, 06/14/21 8:22:00 EDT, Tablet, [facility]/pharmacy #202... Start Date: 06/14/21 Stop Date: 07/15/21 Status: Ordered oxyCODONE 10 mg oral tablet 2 tablet = 20 mg, By Mouth, Every 4 hours, PRN as needed for pain, 28 day prescription patient may fill for less than quantity prescribed, # 224 tablet, 0 Refills, Acute 07/15/21 17:00:00 EDT, 06/14/21 8:22:00 EDT, Tablet, [facility]/pharmacy #2025, refill... Start Date: 06/14/21 Stop [...] 10 J44.9, PLEASE BILL THROUGH MED B [id number], 165, cm, 12/20/20 10:40:00 EST, Height, 66.7, [...]
--- OUTSIDE RECORDS SUMMARY | 2024-05-04 13:23 | XMS_ITS | Continuity of Care Document ---
Author Organization [facility] Address [address] [address]- Care Team Providers Care Drill Sharpener Operator Name Role Phone Renzo GRAHAM, Declan Hou Primary Care Physician Encounter [facility] Date(s): 07/24/20 - 08/23/20 [facility] [address] [facility] [address] [place] [id number] Attending Physician: Kaleb De Leon Admitting [...] 12 08/19/08 Given 1Result Comment: DONE AT [facility] 2Result Comment: [06/22/2018] [facility] 5Admin Note: done @ clinic 6Admin Note: given w/out incident/VIS given 7Result Comment: [id number], [id number] 8[facility] 9Result Comment: [07/21/2014] given w/out incident 10Admin Note: [facility] INFO GIVEN TO PATIENT 11Result Comment: lot #[id number] 12Admin Note: [facility] albuterol 0.083% inhalation solution 3 mL = 2.5 mg, Inhalation, Every 6 hours, PRN for wheezing, # 360 mL, 8 Refills, Maintenance, 07/07/19 14:14:00 EDT, Solution, ICD 10 J44.9, PLEASE BILL THROUGH MED B [id number] Start Date: 07/07/19 Status: Ordered alendronate 70 [...] 11:34:00 EDT, Suspension, Route to Pharmacy Electronically, [id number], [facility]/pharmacy #2024,... Start Date: 03/06/20 Status: Ordered calcium-vitamin D 600 mg-400 intl units oral tablet See Instructions, 1 tablet By Mouth twice daily, # 60 tablet, 11 Refills, Maintenance, 07/04/20 15:50:00 EDT, Tablet, [facility]/pharmacy #2024, 1 tablet By Mouth twice [...] Replace Required Details, Route to Pharmacy Electronically, [facility]/pharmacy #2024... Start Date: 03/02/20 Status: Ordered [...] 02/22/20 10:31:00 EDT, Route to Pharmacy Electronically, [facility]/pharmacy #2024, 165, cm, 01/27/20 8:11:00 EDT, [...] 09/11/20 17:00:00 EST, 08/13/20 8:42:00 EDT, Tablet, [facility]/pharmacy #202... Start Date: 08/13/20 Stop Date: 09/11/20 Status: Ordered naproxen 500 mg oral tablet 1 tablet = 500 mg, By Mouth, 2 times a day, PRN joint or muscle pain, # 60 tablet, 11 Refills, Acute 06/11/21 11:08:00 EDT, 06/11/20 11:08:00 EDT, Tablet, [facility]/pharmacy #2025, 165, cm, 05/17/20 16:00:00 EDT, [...] 09/11/20 17:00:00 EST, 08/13/20 8:42:00 EDT, Tablet, [facility]/pharmacy #2025, 165, cm... Start Date: 08/13/20 [...] Refills, Acute, 05/22/20 11:58:00 EDT, [facility], 165, cm, 05/17/20 16:00:00 EDT, Height, 67, [...] tablet, 3 Refills, Maintenance, 07/04/20 15:51:00 EDT, [facility]/pharmacy #202, 165, cm, 05/17/20 16:00:00 EDT, Height, 67, kg, 05/01/20 10:40:00 EDT, Dry Weight Start Date: 07/04/20 Status: Ordered Senna 8.6 mg oral tablet 8.6 mg, 1, tablet, By Mouth, Daily, # 30 tablet, Refills 11, Tot. Refills 11, Maintenance, 03/02/2017:09:00 EDT, Route to Pharmacy Electronically, [facility]/pharmacy #2024 Tablet, 165, cm, 01/27/20 8:11:00 EDT, Height, 53.6, kg, 10/14/19 10:56:00 EST, Dry... Start Date: 03/02/20 Status: Ordered triamcinolone 0.1% topical cream 1 application, Topically, 3 times a day, PRN psoriasis rash, # 60 Gm, 5 Refills, Acute 01/01/21 10:47:00 EDT, 01/02/20 10:46:00 EDT, Cream, [facility], 1 application Topically 3 times a [...] 10 J44.9, PLEASE BILL THROUGH MED B [id number], 165, cm, 01/27/20 8:11:00 EDT, Height, 53.6, [...]
--- OUTSIDE RECORDS SUMMARY | 2024-05-04 13:23 | XMS_ITS | Continuity of Care Document ---
Author Organization [facility] ter Address [address] [place] [address]- Care Team Providers Care Brush Trimming Machine Setter Name Role Phone Renzo GRAHAM, Declan Hou Primary Care Physician [facility]counter [facility] Date(s): 10/05/23 - 11/04/[address] [address] Allergies, Adverse Reactions, Alerts Substance Reaction Severity [...] (oldterm) 13 08/19/08 Given 1Result Comment: [facility] [id number] 2Result Comment: [06/22/2018] given at [facility] 3Location History: [facility] 4Location History: [facility] 5Admin Note: done @ clinic 6Admin Note: given w/out incident/VIS given 7Result Comment: [id number], [id number] 8Result Comment: DONE AT [facility] 10Result Comment: [07/21/2014] given w/out incident 11Admin Note: [facility] INFO GIVEN TO PATIENT 12Result Comment: lot #[id number] 13Admin Note: [facility] albuterol 0.083% inhalation solution 3 mL = 2.5 mg, Inhalation, Every 6 hours, PRN for wheezing, # 360 mL, 8 Refills, Maintenance, 07/07/19 14:14:00 EDT, Solution, ICD 10 J44.9, PLEASE BILL THROUGH MED B [id number] Start Date: 07/07/19 Status: Ordered albuterol 90 [...] 11:34:00 EDT, Suspension, Route to Pharmacy Electronically, [id number], [facility]/pharmacy #2024,... Start Date: 03/06/20 Status: Ordered calcium-vitamin D 600 mg-400 intl units oral tablet 1 tablet, By Mouth, 2 times a day, # 180 tablet, 1 Refills, Maintenance, 10/07/22 11:54:00 EST, [facility], 90, TAKE 1 TABLET BY MOUTH TWICE [...] 09/24/23 14:08:00 EST, Route to Pharmacy Electronically, [facility]/pharmacy #2024, 165, cm, 09/04/23 8:51:00 EST, Height,... [...] capsule, 11 Refills, Maintenance, 03/03/23 10:03:00 EDT, [facility]/pharmacy #2025, 165, cm, 01/21/23 10:40:00 EDT, Height, 55.8, kg, 01/23/23 8:24:00 EDT, Dry Weight Start Date: 03/03/23 Stop Date: 02/26/24 Status: Ordered duloxetine 30 mg oral enteric coated capsule 1 capsule = 30 mg, By Mouth, Daily, # 30 capsule, 11 Refills, Maintenance, 09/14/23 16:34:00 EST, Capsule, [facility]/pharmacy #2025, Partial fill upon patient request if the prescription is for a schedule II opioid drug., 165, cm, 09/04/23 8:51:00 EST, Rony. Start Date: 09/14/23 Status: Ordered gabapentin 400 mg oral capsule 1, capsule, By Mouth, 3 times a day, # 90 capsule, Refills 11, Maintenance, 10/07/22 13:28:00 EST, Route to Pharmacy Electronically, [id number], 165, cm, 08/26/22 11:06:00 EST, Height, 64.7, [...] capsule, 3 Refills, Maintenance, 10/15/22 9:58:00 EST, [facility], 165, cm, 10/09/22 11:32:00 EST, Height, 64.7, [...] 09/24/24 14:08:00 EST, 09/24/23 14:07:00 EST, Tablet, [facility]/pharmacy #20... Start Date: 09/24/23 Stop Date: 09/24/24 Status: Ordered nystatin 223400 u/ml oral suspension 5 mL, By Mouth, [...] 10 J44.9, PLEASE BILL THROUGH MED B [id number], 165, cm, 06/05/21 10:01:00 EDT, Height, 61.4, [...] Care Team Personnel Name: Joelle Castillo Position: [facility] Onco RN Member Role: Primary Care Nurse Name: Shawnee Schafer RN Position: [facility] SN RN Member Role: Primary Care Nurse Name: Declan Muller MD Position: [facility] Physician - Primary Care Member Role: PCP Address: Address: [address] [place] [address] Adult & Pediatric Medicine [address] Name: Aylin Byrne RN Position: [facility] RN Member Role: Primary Care Nurse Name: Edilma Metzger RN Position: [facility] RN Member Role: Primary Care Nurse Name: Katherine Bond RN Position: [facility] SN RN Member Role: Primary Care Nurse Name: Gena Chavez RN Position: [facility] bale breaker operator Member Role: Double Needle Operator Lockstitch Name: Kerry Negron RN Position: [facility] RN Member Role: Primary Care Nurse Name: Joslyn Dodge RN Position: [facility] SN RN Member Role: Primary Care Nurse Name: Missy Avilez RN Position: [facility] Onco RN Member Role: Primary Care Nurse Name: Katina Marcus RN Position: [facility] RN Member Role: Primary Care Nurse Name: Sienna Horne RN Position: [facility] RN Member Role: Primary Care Nurse Name: Ernestine Thomas RN Position: [facility] RN Member Role: Primary Care Nurse Care Team Related Persons Name: JANICE TAYLOR Address: [address] [address]
--- OUTSIDE RECORDS SUMMARY | 2024-05-04 13:23 | XMS_ITS | Continuity of Care Document ---
Author Organization [facility] Address [address] [place] [address]- Care Team Providers Care Sanitarian Aide Name Role Phone Declan Muller MD Primary Care Physician [phone] Encounter [facility] Date(s): 01/22/23 - 02/21/23 [facility] [address] [place] [address]- [place] Allergies, Adverse Reactions, Alerts Substance Reaction [...] 13 08/19/08 Given 1Result Comment: [facility] [id number] 2Result Comment: [06/22/2018] given at [facility] 3Location History: [facility] 4Location History: [facility] 5Admin Note: done @ clinic 6Admin Note: given w/out incident/VIS given 7Result Comment: [id number], [id number] 8Result Comment: DONE AT [facility] 10Result Comment: [07/21/2014] given w/out incident 11Admin Note: CDC INFO GIVEN TO PATIENT 12Result Comment: lot #[id number] 13Admin Note: [facility] albuterol 0.083% inhalation solution 3 mL = 2.5 mg, Inhalation, Every 6 hours, PRN for wheezing, # 360 mL, 8 Refills, Maintenance, 07/07/19 14:14:00 EDT, Solution, ICD 10 J44.9, PLEASE BILL THROUGH MED B [id number] Start Date: 07/07/19 Status: Ordered albuterol 90 [...] 11:34:00 EDT, Suspension, Route to Pharmacy Electronically, [id number], [facility]/pharmacy #202,... Start Date: 03/06/20 Status: Ordered calcium-vitamin D 600 mg-400 intl units oral tablet 1 tablet, By Mouth, 2 times a day, # 180 tablet, 1 Refills, Maintenance, 10/07/22 11:54:00 EST, [facility], 90, TAKE 1 TABLET BY MOUTH TWICE [...] for a schedule II opioid Start Date: 08/19/22 Status: Ordered Digox 250 [...] capsule, 5 Refills, Maintenance, 07/30/22 11:39:00 EDT, [facility]/pharmacy #0447, 165, cm, 04/17/22 13:32:00 EDT, Height, 60.6,kg, 04/18/22 8:40:00 EDT, Dry Weight Start Date: 07/30/22 Stop Date: 01/26/23 Status: Ordered duloxetine 30 mg oral enteric coated capsule 1 capsule = 30 mg, By Mouth, Daily, # 30 capsule, 11 Refills, Maintenance, 12/15/22 9:46:00 EST, Capsule, [facility]/pharmacy #2025, Partial fill upon patient request if the prescription is for a schedule II opioid drug., 165, cm, 10/09/22 11:32:00 EST, [facility]... Start Date: 12/15/22 Status: Ordered gabapentin 400 mg oral capsule 1, capsule, By Mouth, 3 times a day, # 90 capsule, Refills 11, Maintenance, 10/07/22 13:28:00 EST, Route to Pharmacy Electronically, [facility], 165, cm, 08/26/22 11:06:00 EST, Height, 64.7, [...] Refills, Maintenance, 10/15/22 9:58:00 EST, [facility], 165, cm, 10/09/22 11:32:00 EST, Height, 64.7, [...] 01/20/24 13:03:00 EDT, 01/19/23 13:03:00 EDT, Tablet, [facility]/pharmacy #20... Start Date: 01/19/23 Stop Date: 01/20/24 Status: Ordered nystatin 411624 u/ml oral suspension 5 mL, By Mouth, 4 times a day, # 480 mL, 1 Refills, [facility], 165, cm, 03/28/22 11:14:00 EDT, Height, 60.4, [...] 10 J44.9, PLEASE BILL THROUGH MED B [id number], 165, cm, 06/05/21 10:01:00 EDT, Height, 61.4, [...] Care Team Personnel Name: Joelle Castillo Position: [facility] Onco RN Member Role: Primary Care Nurse Name: Marilee Pitts RN Position: [facility] RN Member Role: Primary Care Nurse Name: Shawnee Schafer RN Position: [facility] SN RN Member Role: Primary Care Nurse Name: Declan Muller MD Position: [facility] Primary Care Physician Member Role: PCP Address: Address: [address] [place] [address] Adult & Pediatric [place], [place] [address] Name: Aylin Byrne RN Position: [facility] RN Member Role: Primary Care Nurse Name: Blaire Wilde RN Position: [facility] RN Supv Member Role: Primary Care Nurse Name: Edilma Metzger RN Position: [facility] RN Member Role: Primary Care Nurse Name: Katherine Bond RN Position: [facility] SN RN Member Role: Primary Care Nurse Name: Kerry Negron RN Position: [facility] RN Member Role: Primary Care Nurse Name: Missy Avilez RN Position: [facility] Onco RN Member Role: Primary Care Nurse Name: Katina Marcus RN Position: [facility] RN Member Role: Primary Care Nurse Name: Sienna Horne RN Position: [facility] RN Member Role: Primary Care Nurse Name: Ernestine Thomas RN Position: [facility] RN Member Role: Primary Care Nurse Care Team Related Persons Name: TAYLORJANICE NANCE Address: [address] [address]
--- OUTSIDE RECORDS SUMMARY | 2024-05-04 13:23 | XMS_ITS | Continuity of Care Document ---
Author Organization [facility] ter Address [address] [place] [address]- Care Team Providers Care Exercise Scientist Name Role Phone Renzo GRAHAM, Declan Hou Primary Care Physician [phone] Encounter [facility] Date(s): 03/08/20 - 03/12/[address] [address]- [facility] Encounter Diagnosis COVID-19 virus detected(Final) - 03/08/20 COVID-19 virus vaccine not available(Final) - 03/08/20 Shortness of breath(Final) - 03/08/20 Hypoxia(Final) - 03/08/20 Discharge Disposition: A-D/C Home Attending Physician: Joan Hughes MD Admitting Physician: Tatum Dockery MD Referring Physician: Not on Staff, Referring MD [...] 12 08/19/08 Given 1Result Comment: DONE AT [facility] 2Result Comment: [06/22/2018] given at [facility] 3Location History: [facility] 5Admin Note: done @ clinic 6Admin Note: given w/out incident/VIS given 7Result Comment: [id number], [id number] 8[facility] 9Result Comment: [07/21/2014] given w/out incident 10Admin Note: CDC INFO GIVEN TO PATIENT 11Result Comment: lot #[id number] 12Admin Note: [facility] albuterol 0.083% inhalation solution 3 mL = 2.5 mg, Inhalation, Every 6 hours, PRN for wheezing, # 360 mL, 8 Refills, Maintenance, 07/07/19 14:14:00 EDT, Solution, ICD 10 J44.9, PLEASE BILL THROUGH MED B [id number] Start Date: 07/07/19 Status: Ordered Ativan 1 mg oral tablet 1 tablet = 1 mg, By Mouth, 3 times a day, PRN for anxiety, # 84 each, 0 Refills, Acute 03/26/20 17:00:00 EDT, 02/27/20 9:03:00 EDT, Tablet, [facility]/pharmacy #2025, 165, cm, 01/27/20 8:11:00 EDT, Height, 53.6, kg, 10/14/19 10:56:00 EST, Dry Weight Start Date: 02/27/20 Stop Date: 03/26/20 Status: Ordered Brovana 15 mcg/2 mL inhalation [...] 11:34:00 EDT, Suspension, Route to Pharmacy Electronically, [id number], [facility]/pharmacy #2024,... Start Date: [...] 10/26/19 12:28:00 EST, Route to Pharmacy Electronically, [facility]/pharmacy #2024, 165, cm, 10/14/19 10:56:00 EST, [...] Required Details, Route to Pharmacy Electronically, [facility]/pharmacy #2024... Start Date: 03/02/20 Status: Ordered gabapentin 400 mg oral capsule 400 mg, 1, capsule, By Mouth, 2 times a day, # 60 each, Refills 11, Tot. Refills 11, Maintenance, 02/22/20 10:31:00 EDT, Route to Pharmacy Electronically, [facility]/pharmacy #2024, 165, cm, 01/27/20 8:11:00 EDT, Height, 53.6, kg, 10/14/19 10:56:00 EST, Dry... Start Date: 02/22/20 Status: Ordered methadone 10 mg oral tablet See Instructions, PRN for pain, 2 tablets By Mouth in the morning, 1 tablet in the afternoon, and 3tablets by mouth in the evening 28 day schedule, # 168 each, 0 Refills, Acute 03/26/20 17:00:00 EDT, 02/27/20 9:03:00 EDT, Tablet, [facility]/pharmacy #202... Start Date: 02/27/20 Stop Date: 03/26/20 Status: Ordered oxyCODONE 10 mg oral tablet 2 tablet = 20 mg, By Mouth, Every 4 hours, PRN as needed for pain, 28 day prescription patient may fill for less than quantity prescribed, # 224 tablet, 0 Refills, Acute 03/26/20 17:00:00 EDT, 02/27/20 9:03:00 EDT, Tablet, [facility]/pharmacy #2025, 165, cm... Start Date: 02/27/20 Stop Date: 03/26/20 Status: Ordered pantoprazole 40 mg oral delayed release tablet 1 tablet = 40 mg, By Mouth, Daily, PRN stomach pain, # 30 tablet, 11 Refills, Maintenance, 10/14/1911:22:00 EST, [facility] Tablet, 165, cm, 10/14/19 10:56:00 EST, Height, 53.6, kg, 10/14/19 10:56:00 EST, Dry Weight Start Date: 10/14/19 Status: Ordered roflumilast 250 mcg oral tablet [...] 10:47:00 EDT, 01/02/20 10:46:00 EDT, Cream, [facility]/pharmacy #202, 1 application Topically 3 times [...] 6 Refills, Maintenance, 03/06/20 11:37:00 EDT, [facility], ICD 10 J44.9, PLEASE BILL THROUGH MED B [id number], 165, cm, 01/27/20 8:11:00 EDT, Height, 53.6, kg, 10/14/19 10:56:00 EST, Dry Weight Start Date: 03/06/20 Status: Ordered ZyrTEC 10 mg oral tablet [...] Results Orders for Microbiology Reports Name Date Blood Culture #2 (BLOOD CULTURE 2) Blood Culture (BLOOD CULTURE) 03/10/20 Blood Culture 03/08/20 Microbiology Reports TEST:Blood Culture STATUS:Unauthenticated BODY SITE: SOURCE:Blood COLLECTED DATE/TIME:03/10/20 7:44 AM Blood Culture SPECIMEN DESCRIPTION : BLOOD RIGHT SPECIAL REQUESTS : NONE CULTURE : NO GROWTH AFTER 48 HOURS REPORT STATUS : PRELIMINARY REPORT TEST:Blood Culture, Second Order STATUS:Unauthenticated BODY SITE: SOURCE:Blood COLLECTED DATE/TIME:03/10/20 7:44 AM Blood Culture, Second Order SPECIMEN DESCRIPTION : BLOOD LEFT SPECIAL REQUESTS : NONE CULTURE : NO GROWTH AFTER 48 HOURS REPORT STATUS : PRELIMINARY REPORT TEST:Blood Culture STATUS:Unauthenticated BODY SITE: SOURCE:Blood COLLECTED DATE/TIME:03/08/20 10:39 AM Blood Culture SPECIMEN DESCRIPTION : BLOOD RAC SPECIAL REQUESTS : NONE CULTURE : NO GROWTH 4 DAYS REPORT STATUS : PRELIMINARY REPORT Radiology Reports * Exam Date Time Procedure Performing Provider Status 03/08/20 11:09 AM Chest Portable Ekenbarger , Nani L; Auth (Verified) Notes: (Chest Portable) Reason For Exam: Shortness of Breath RESULT: Chest Portable Chest Portable AP upright at 10:46 AM on 03/08/2020. Reason: Shortness of breath. COMPARISON: Multiple priors, most recent 02/09/2020. FINDINGS: LINES AND TUBES: None. LUNGS AND PLEURA: Interstitial prominence is mildly increased from 02/09/2020. No evidence of consolidation Trace bilateral pleural effusions. No pneumothorax. HEART, MEDIASTINUM AND PAULINA: Heart is normal in size. Aorta is somewhat tortuous. BONES AND SOFT TISSUES: No acute abnormality. IMPRESSION: Increased interstitial prominence with bilateral pleural effusions may be secondary to pulmonary edema. No evidence of consolidation. I have personally reviewed the images and I agree with this report. WSN: [id number] Ordering Physician: Donnie Dotson Dictated By: Pasha Velarde DO Dictated Date/Time: 03/08/20 11:19 a Reviewed By: Keshawn Green MD Signed By: Keshawn Green MD Signed Date/Time: 03/08/20 11:24 am Transcribed By: BUZZ Transcribed Date/Time: 03/08/20 11:13 am Vital Signs Most recent to oldest [Reference Range]: 1 2 3 Height 165 cm (03/12/20 8:39 AM) 165 cm (03/11/20 7:45 AM) 165 cm (03/10/20 7:35 PM) Weight 70.7 kg (03/08/20 4:16 PM) Oxygen Saturation [94-100 %] 100 % (03/12/20 8:39 AM) 98 % (03/11/20 8:10 PM) 96 % (03/11/20 7:45 AM) Pulse Rate [55-90 bpm] 98 bpm *H* (03/12/20 8:39 AM) 98 bpm *H* (03/12/20 8:18 AM) 81 bpm (03/11/20 8:10 PM) Body Mass Index [18.5-24.99] 25.97 *H* (03/08/20 4:16 PM) Blood Pressure [90-138/55-84 mm Hg] 141/98mm Hg *H* (03/12/20 8:39 AM) 141/98mm Hg *H* (03/12/20 8:18 AM) 110/72mm Hg (03/11/20 8:10 PM) Respiratory Rate [16-30 br/min] 16 br/min (03/12/20 9:18 AM) 18 br/min (03/12/20 8:39 AM) 16 br/min (03/12/20 8:18 AM) Temperature [96.8-100.4 DegF] 98.4 DegF (03/11/20 8:10 PM) 99.8 DegF (03/11/20 7:45 AM) 98.4 DegF (03/10/20 7:35 PM) Liters per Minute 2 L/min (03/11/20 8:10 PM) 3 L/min (03/11/20 7:45 AM) 3 L/min (03/10/20 7:35 PM) Mode of Delivery (Oxygen) Room air (03/12/20 8:39 AM) Nasal cannula (03/11/20 8:10 PM) Nasal cannula (5/24/20 7:45 AM) Blood pressure sites Arm, right (03/12/20 8:39 AM) Arm, right (03/11/20 8:10 PM) Arm, right (03/11/20 7:45 AM) Temperature Route Oral (03/12/20 8:39 AM) Oral (03/11/20 8:10 PM) Oral (03/11/20 7:45 AM) Dry Weight 70.7 kg (03/08/20 4:16 PM) Weight Obtained Via Bed scale (03/08/20 4:16 PM) Social History Social History Type Response Smoking Status Former smoker, quit more than 30 days ago; Other: quit 20 years ago; entered on: 09/24/19 Sex
--- OUTSIDE RECORDS SUMMARY | 2024-05-04 13:23 | XMS_ITS | Continuity of Care Document ---
Author Organization [facility] ter Address [address] [place] [address]- Care Team Providers Care Dental Treatment Coordinator Name Role Phone Renzo GRAHAM, Declan Hou Primary Care Physician [phone] [facility] Date[facility]s): 01/08/24 - 02/07/[address] [address] Allergies, Adverse Reactions, Alerts Substance Reaction [...] 08/19/08 Given 1Result Comment: [facility] [id number] 2Result Comment: [06/22/2018] given at [facility] 3Location History: [facility] 4Location History: [facility] 5Admin Note: done @ clinic 6Admin Note: given w/out incident/VIS given 7Result Comment: [id number], [id number] 8Result Comment: DONE AT [facility] 10Result Comment: [07/21/2014] given w/out incident 11Admin Note: [facility] INFO GIVEN TO PATIENT 12Result Comment: lot #[id number] 13Admin Note: [facility] albuterol 0.083% inhalation solution 3 mL = 2.5 mg, Inhalation, Every 6 hours, PRN for wheezing, # 360 mL, 8 Refills, Maintenance, 07/07/19 14:14:00 EDT, Solution, ICD 10 J44.9, PLEASE BILL THROUGH MED B [id number] Start Date: 07/07/19 Status: Ordered albuterol 90 [...] 11:34:00 EDT, Suspension, Route to Pharmacy Electronically, [id number], [facility]/pharmacy #2025,... Start Date: 03/06/20 Status: Ordered calcium-vitamin D 600 mg-400 intl units oral tablet 1 tablet, By Mouth, 2 times a day, # 180 tablet, 1 Refills, Maintenance, 10/07/22 11:54:00 EST, [facility], 90, TAKE 1 TABLET BY MOUTH TWICE A DAY, 165, cm, 08/26/22 11:06:00 EST, Height, 64.7, kg, 10/03/22 8:14:00 EST, Dry Weight Start Date: 10/07/22 Status: Ordered cetirizine 10 mg oral tablet 1 tablet, By Mouth, Daily, PRN NEEDED FOR SINUS SYMPTOMS, # 90 tablet, 1 Refills, Maintenance, 12/09/23 1:28:00 EST, [facility]/pharmacy #2024, 165, cm, 09/30/23 10:35:00 EST, Height, 53.7, kg, 11/27/23 8:47:00 EST, Dry Weight Start Date: 12/09/23 Status: Ordered cyclobenzaprine 10 mg oral tablet 1/2 OR 1 TABLET, By Mouth, 2 times a day, PRN, # 60 tablet, Refills 5, Tot. Refills 5, Maintenance, NEEDED FOR MUSCLE PAIN OR SPASM, 01/13/24 12:46:00 EDT, Route to Pharmacy Electronically, [facility]/pharmacy #2024, 165, cm, 12/30/23 11:12:00 EDT, Height... [...] capsule, 11 Refills, Maintenance, 03/03/23 10:03:00 EDT, [facility]/pharmacy #2024, 165, cm, 01/21/23 10:40:00 EDT, [...] 5 Refills, Maintenance, 01/08/24 12:43:00 EDT, Tablet, [facility]/pharmacy #2024, Partial fill upon patient request [...] drug. Start Date: 12/30/23 Status: Ordered nystatin 703029 u/ml oral suspension 5 mL, By Mouth, [...] 12/28/24 12:00:00 EDT, 12/29/23 12:52:00 EDT, Tablet, [facility]/pharmacy #2024, Partial fill upon patient request [...] 01/22/24 7:51:00 EDT, Route to Pharmacy Electronically, [facility]/pharmacy #2024, Partial fill upon patient request [...] 10 J44.9, PLEASE BILL THROUGH MED B [id number], 165, cm, 06/05/21 10:01:00 EDT, Height, 61.4, [...] Care Team Personnel Name: Joelle Castillo Position: [facility] Onco RN Member Role: Primary Care Nurse Name: Shawnee Schafer RN Position: [facility] SN RN Member Role: Primary Care Nurse Name: Declan Muller MD Position: [facility] Physician - Primary Care Member Role: PCP Address: Address: [address] [place] [address] Adult [place] [address]- Name: Aylin Byrne RN Position: [facility] RN Member Role: Primary Care Nurse Name: Edilma Metzger RN Position: [facility] RN Member Role: Primary Care Nurse Name: Katherine Bond RN Position: [facility] RN Member Role: Primary Care Nurse Name: Gena Chavez RN Position: [facility] claims investigator Member Role: Machine Ironer Name: Kerry Negron RN Position: [facility] RN Member Role: Primary Care Nurse Name: Joslyn Dodge RN Position: [facility] AMB Nurse Member Role: Primary Care Nurse Name: Missy Avilez RN Position: [facility] Onco RN Member Role: Primary Care Nurse Name: Katina Marcus RN Position: [facility] RN Member Role: Primary Care Nurse Name: Sienna Horne RN Position: [facility] RN Member Role: Primary Care Nurse Name: Ernestine Thomas RN Position: [facility] RN Member Role: Primary Care Nurse Care Team Related Persons Name: JANICE TAYLOR Address: home [address] [place] [address]
--- OUTSIDE RECORDS SUMMARY | 2024-05-04 13:23 | XMS_ITS | Continuity of Care Document ---
Author Organization [facility] Address [address] [place] [address]- Care Team Providers Care Machine Long Goods Helper Name Role Phone Declan Muller MD Primary Care Physician Encounter [facility] [place] Date(s): 09/09/21 - 09/16/21 [facility] [address] [place] [address]- Encounter Diagnosis Cough(Discharge Diagnosis) - 09/09/21 Chronic obstructive lung disease(Discharge Diagnosis) - 09/09/21 Immunodeficiency disorder, hypogammaglobulinemia(Discharge Diagnosis) - 09/09/21 Chest pain(Discharge Diagnosis) - 09/09/21 Attending Physician: Declan Muller MD Allergies, Adverse [...] 12 08/19/08 Given 1Result Comment: DONE AT [facility] 2Result Comment: [06/22/2018] given at [facility] 3[facility] 4[facility] 5Admin Note: done @ clinic 6Admin Note: given w/out incident/VIS given 7Result Comment: [id number], [id number] [facility] 9Result Comment: [07/21/2014] given w/out incident 10Admin Note: CDC INFO GIVEN TO PATIENT 11Result Comment: lot #[id number] 12Admin Note: [facility] albuterol 0.083% inhalation solution 3 mL = 2.5 mg, Inhalation, Every 6 hours, PRN for wheezing, # 360 mL, 8 Refills, Maintenance, 07/07/19 14:14:00 EDT, Solution, ICD 10 J44.9, PLEASE BILL THROUGH MED B [id number] Start Date: 07/07/19 Status: Ordered alendronate 70 [...] 11:34:00 EDT, Suspension, Route to Pharmacy Electronically, [id number], [facility]/pharmacy #2025,... Start Date: 03/06/20 Status: Ordered calcium-vitamin D 600 mg-400 intl units oral tablet See Instructions, 1 tablet By Mouth twice daily, # 60 tablet, 11 Refills, Maintenance, 07/04/20 15:50:00 EDT, Tablet, [facility]/pharmacy #5, 1 tablet By Mouth twice daily, 165, cm, 05/17/20 16:00:00 EDT, Height, 67, kg, 05/01/20 10:40:00 EDT, Dry Weight Start Date: 07/04/20 Status: Ordered cyclobenzaprine 10 mg oral tablet 1, tablet, By Mouth, 2 times a day, PRN, # 60 each, Refills 5, Tot. Refills 5, Acute 11/21/21 12:24:00 EST, NEEDED FOR PAIN, 11/21/20 12:23:00 EST, Route to Pharmacy Electronically, [facility]/pharmacy #2024, 165, cm, 05/17/20 16:00:00 EDT, Height, 66.5,... Start Date: 11/21/20 Stop Date: 11/21/21 Status: Ordered docusate sodium 100 mg oral capsule 2 capsule, By Mouth, 2 times a day, PRN NEEDED FOR CONSTIPATION FOR, # 120 capsule, 11 Refills, Maintenance, 11/21/20 16:36:00 EST, [id number], 165, cm, 05/17/20 16:00:00 EDT, Height, 66.5, kg, 09/21/20 8:46:00 EST, Dry Weight Start Date: 11/21/20 Stop Date: 12/21/20 Status: Ordered duloxetine 20 mg oral enteric coated capsule 1 capsule = 20 mg, By Mouth, Daily, # 30 capsule, 11 Refills, Maintenance, 07/16/21 15:55:00 EDT, Capsule, [facility]/pharmacy #2024, Partial fill upon patient request if the prescription is for a schedule II opioid drug., 165, cm, 06/05/21 10:01:00 EDT, Hei... Start Date: 07/16/21 Status: Ordered gabapentin 400 mg oral capsule 1, capsule, By Mouth, 3 times a day, # 90 each, Refills 11, Tot. Refills 11, Maintenance, 09/09/21 11:35:00 EST, Route to Pharmacy Electronically, [facility]/pharmacy #2024, dose increase, refill when needed, 165, [...] 11 Refills, Maintenance, 01/13/20 11:40:00 EDT, Aerosol, [facility]/pharmacy #2024, 165, cm, 11/17/19 10:08:00 EST, Height, 53.6, kg, 10/14/19 10:56:00 EST, Dry Weight Start Date: 01/13/20 Status: Ordered Yupelri 175 mcg/3 mL inhalation solution = 175 mcg, Inhalation, Daily, j44.9 please bill through med B, # 90 mL, 2 Refills, Maintenance, 08/12/21 16:05:00 EDT, [facility], ICD 10 J44.9, PLEASE BILL THROUGH MED B [id number], 165, cm, 06/05/21 10:01:00 EDT, Height, 61.4, [...] Status Clinical Service Informant Cough Discharge Diagnosis 09/09/21 Chronic obstructive lung disease Discharge Diagnosis 09/09/21 Immunodeficiency disorder, hypogammaglobulinemia Discharge Diagnosis 09/09/21 Chest pain Discharge Diagnosis 09/09/21 Vital Signs Most recent to oldest [Reference Range]: 1 Height 165 cm (09/09/21 11:19 AM) Weight 60.9 kg (09/09/21 11:19 AM) Oxygen Saturation [94-100 %] 92 % *L* (09/09/21 11:19 AM) Pulse Rate [55-90 bpm] 109 bpm *H* (09/09/21 11:19 AM) Body Mass Index [18.5-24.99] 22.37 (09/09/21 11:19 AM) Blood Pressure [90-138/55-84 mm Hg] 100/ 60mm Hg (09/09/21 11:19 AM) Blood pressure sites Arm, left (09/09/21 11:19 AM) Social History Social History Type Response Smoking Status Former smoker, quit more than 30 days ago; Other: quit 20 years ago; entered on: 09/24/19 Sex
--- OUTSIDE RECORDS SUMMARY | 2024-05-04 13:24 | XMS_ITS | Continuity of Care Document ---
Author Organization [facility] Address [address] [place] [address]- Care Team Providers Care Cloth Cutting Machine Operator Name Role Phone Declan Muller MD Primary Care Physician [phone] Encounter [facility] [place] Date(s): 06/06/21 - 06/05/22 [facility] [address] [place] [address] Discharge Disposition: A-D/C Home Attending Physician: Heide [...] 08/19/08 Given 1Result Comment: DONE AT [facility] 2Result Comment: [06/22/2018] given at [facility] 3Location History: [facility] 4Location History: [facility] 5Admin Note: done @ clinic 6Admin Note: given w/out incident/VIS given 7Result Comment: [id number], [id number] [facility] 9Result Comment: [07/21/2014] given w/out incident 10Admin Note: CDC INFO GIVEN TO PATIENT 11Result Comment: lot #[id number] 12Admin Note: [facility] albuterol 0.083% inhalation solution 3 mL = 2.5 mg, Inhalation, Every 6 hours, PRN for wheezing, # 360 mL, 8 Refills, Maintenance, 07/07/19 14:14:00 EDT, Solution, ICD 10 J44.9, PLEASE BILL THROUGH MED B [id number] Start Date: 07/07/19 Status: Ordered Ativan 1 mg oral tablet 1 tablet = 1 mg, By Mouth, 3 times a day, PRN for anxiety, # 84 each, 0 Refills, Acute 06/23/22 17:00:00 EDT, 05/23/22 9:05:00 EDT, Tablet, [facility]/pharmacy #2024, 165, cm, 04/17/22 13:32:00 EDT, Height,60.6, kg, 04/18/22 8:40:00 EDT, Dry Weight Start Date: 05/23/22 Stop Date: 06/23/22 Status: Ordered Brovana 15 mcg/2 mL inhalation [...] 11:34:00 EDT, Suspension, Route to Pharmacy Electronically, [id number], [facility]/pharmacy #2024,... Start Date: 03/06/20 Status: Ordered calcium-vitamin D 600 mg-400 intl units oral tablet See Instructions, 1 tablet By Mouth twice daily, # 60 tablet, 11 Refills, Maintenance, 10/28/21 10:33:00 EST, Tablet, [facility]/pharmacy #2024, 1 tablet By Mouth [...] capsule, 5 Refills, Maintenance, 12/30/21 10:25:00 EDT, [facility]/pharmacy #2024, 165, cm, 12/23/21 9:22:00 EST, Height, [...] 09/09/21 11:35:00 EST, Route to Pharmacy Electronically, [facility]/pharmacy #2025, dose increase, refill when needed, 165, cm, 09/09/21 11:19:00 EST, Height, 61.4, kg,... Start Date: 09/09/21 Status: Ordered Linzess 290 mcg oral capsule 1 capsule = 290 mcg, By Mouth, Daily, # 30 capsule, 3 Refills, Maintenance, 02/24/22 15:40:00 EDT, Capsule, [facility]/pharmacy #2025, Partial fill upon [...] schedule, # 168 each, 0 Refills, Acute 06/23/22 17:00:00 EDT, 05/23/22 9:05:00 EDT, Tablet, [facility]/pharmacy #202... Start Date: 05/23/22 Stop Date: 06/23/22 Status: Ordered nystatin 326806 u/ml oral suspension 5 mL, By Mouth, 4 times a day, # 480 mL, 1 Refills, [facility], 165, cm, 03/28/22 11:14:00 EDT, Height, 60.4, kg, 03/06/22 10:48:00 EDT, Dry Weight Start Date: 04/17/22 Status: Ordered oxyCODONE 10 mg oral tablet 2 tablet = 20 mg, By Mouth, Every 4 hours, PRN as needed for pain, 28 day prescription patient may fill for less than quantity prescribed, # 224 tablet, 0 Refills, Acute 06/23/22 17:00:00 EDT, 05/23/22 9:05:00 EDT, Tablet, [facility]/pharmacy #2025, refill... Start Date: 05/23/22 Stop Date: 06/23/22 Status: Ordered pantoprazole 40 mg oral delayed [...] Acute 05/08/23 16:01:00EDT, 05/08/22 16:00:00 EDT, Cream, [facility]/pharmacy #202, Partial fill upon patient request if the prescription is for a schedule II opioid drug., 1 appli... Start Date: 05/08/22 Stop Date: 05/08/23 Status: Ordered Tylenol 325 mg oral tablet 650 mg, Tablet, By Mouth, 02/21/22 8:00:00 EDT, Stop date 02/21/22 8:00:00 EDT Start Date: 02/21/22 Stop Date: 02/21/22 Status: Completed Tylenol 325 mg oral tablet 650 mg, Tablet, By Mouth, Chemo To Be Scheduled, Routine, 12/26/21 13:00:00 EST Start Date: 12/26/21 Stop Date: 12/27/21 Status: Completed Ventolin HFA 108 mcg/inh inhalation aerosol with adapter 2 puffs, Inhalation, 4 times a day, PRN for wheezing, # 18 Gm, 11 Refills, Maintenance, 01/13/20 11:40:00 EDT, [facility]erosol, [facility], 165, cm, 11/17/19 10:08:00 EST, Height, 53.6, kg, 10/14/19 10:56:00 EST, Dry Weight Start Date: 01/13/20 Status: Ordered Yupelri 175 mcg/3 mL inhalation solution = 175 mcg, Inhalation, Daily, j44.9 please bill through med B, # 90 mL, 2 Refills, Maintenance, 08/12/21 16:05:00 EDT, [facility], ICD 10 J44.9, PLEASE BILL THROUGH MED B [id number], 165, cm, 06/05/21 10:01:00 EDT, Height, 61.4, [...] Range]: 1 2 3 Height 165 cm (03/06/22 10:48 AM) 165 cm (02/21/22 9:03 AM) 165 cm (09/10/21 10:03 AM) Weight 60.4 kg (03/06/22 10:48 AM) 54.5 kg (02/21/22 9:03 AM) 58.5 kg (12/27/21 9:04 AM) Pulse Rate [55-90 bpm] 91 bpm *H* (03/06/22 10:48 AM) 117 bpm *H* (09/10/21 10:03 AM) Body Mass Index [18.5-24.99] 22.19 (03/06/22 10:48 AM) 22.63 (09/10/21 10:03 AM) Blood Pressure [90-138/55-84 mm Hg] 126/88mm Hg (03/06/22 10:48 AM) 128/75mm Hg (09/10/21 10:03 AM) Respiratory Rate [16-30 br/min] 20 br/min (02/21/22 9:38 AM) 18 br/min (12/27/21 9:44 AM) Temperature [96.8-100.4 DegF] 97.2 DegF (03/06/22 10:48 AM) 96.6 DegF *L* (09/10/21 10:03 AM) Blood pressure sites Arm, left (03/06/22 10:48 AM) Arm, right (09/10/21 10:03 AM) Temperature Route Temporal (03/06/22 10:48 AM) Temporal (09/10/21 10:03 AM) Dry Weight 60.6 kg (04/18/22 8:40 AM) 60.4 kg (03/06/22 10:48 AM) 54.5 kg (02/21/22 9:03 AM) Weight Obtained Via Standing scale (03/06/22 10:48 AM) Standing scale (09/10/21 10:03 AM) Bed scale (07/12/21 8:28 AM) Dry Weight Obtained Via Standing scale (04/18/22 8:40 AM) Standing scale (03/06/22 10:48 AM) Standing scale (02/21/22 9:03 AM) Social History Social History Type Response Smoking Status Former smoker, quit more than 30 days ago; Other: quit 20 years ago; entered on: 09/24/19 Sex
--- OUTSIDE RECORDS SUMMARY | 2024-05-04 13:24 | XMS_ITS | Continuity of Care Document ---
Author Organization [facility] Address [address] [place] [address]- Care Team Providers Care Hot End Operator Name Role Phone Declan Muller MD Primary Care Physician [phone] Encounter [facility] Date(s): 07/05/19 - 10/29/19 [facility] [address] [place] [address]- [facility] Attending Physician: Declan Muller MD Allergies, Adverse [...] Note: given w/out incident/VIS given 7Result Comment: [id number], [id number] [facility] 9Result Comment: [07/21/2014] given w/out incident 10Admin Note: [facility] INFO GIVEN TO PATIENT 11Result Comment: lot #[id number] 12Admin Note: [facility] albuterol 0.083% inhalation solution 3 mL = 2.5 mg, Inhalation, Every 6 hours, PRN for wheezing, # 360 mL, 8 Refills, Maintenance, 07/07/19 14:14:00 EDT, Solution, ICD 10 J44.9, PLEASE BILL THROUGH MED B [id number] Start Date: 07/07/19 Status: Ordered Align 4 [...] 19:25:03 EDT, Suspension, Route to Pharmacy Electronically, [id number], [facility]/pharmacy #2024 Start Date: 06/21/19 Status: Ordered calcium-vitamin [...] 10/26/19 12:28:00 EST, Route to Pharmacy Electronically, [facility]/pharmacy #2024, 165, cm, 10/14/19 10:56:00 EST, Height, [...] 09/12/19 14:25:32 EST, Route to Pharmacy Electronically, [id number], [facility]/pharmacy #2024 Start Date: 09/12/19 Stop Date: 09/06/20 Status: Ordered doxycycline hyclate 100 mg oral capsule 1 capsule = 100 mg, By Mouth, 2 times a day, for 10 days, # 20 capsule, 0 Refills, Acute 10/31/19 15:11:00 EST, 10/21/19 15:11:00 EST, Capsule, [facility]/pharmacy #2024, 165, cm, 10/14/19 10:56:00 EST, Height, 53.6, kg, 10/14/19 10:56:00 EST, Dry Weight Start Date: 10/21/19 Stop Date: 10/31/19 Status: Ordered Durable Medical Equipment See Instructions, Maintenance, CPAP supplies all masks, tubing, filters, head gear, chin strap, water chamber, heated tubing, related supplies and accessories [id number] G47.33 G47.39 G47.33 G47.36DME Neftali Gibbs 02/21/18, 03/12/18 11:2... Start Date: 03/12/18 Status: Ordered gabapentin 400 mg oral capsule 400 mg, 1, capsule, By Mouth, 2 times a day, # 60 each, Refills 11, Tot. Refills 11, Maintenance, 01/14/19 14:50:28 EDT, Route to Pharmacy Electronically, [id number], [facility]/pharmacy #2024 Start Date: 01/14/19 Status: Ordered methadone 10 mg oral tablet See Instructions, PRN for pain, 2 tablets By Mouth in the morning, 1 tablet in the afternoon, and 3tablets by mouth in the evening 28 day schedule, # 168 each, 0 Refills, Acute 10/10/20 9:25:00 EST,10/10/19 9:25:00 EST, Tablet, [facility]/pharmacy #2024... Start Date: 10/10/19 Stop Date: 10/10/20 [...] 10/10/20 9:24:00 EST, 10/10/19 9:24:00 EST, Tablet, [facility]/pharmacy #2025, 165, cm,... Start Date: 10/10/19 Stop [...] 10/05/20 17:40:00 EST, 10/05/19 17:39:00 EST, Tablet, [facility]/pharmacy #5, 159, cm, 09/27/19 7:38:00 EST, Height, [...] Maintenance, 08/11/1912:15:33 EDT, Route to Pharmacy Electronically, [id number], [facility]/pharmacy #2024 Tablet Start Date: 08/11/19 Status: Ordered [...] ICD 10 J44.9,PLEASE BILL THROUGH MED B [id number] Start Date: 07/07/19 Status: Ordered ZyrTEC 10 [...]
--- OUTSIDE RECORDS SUMMARY | 2024-05-04 13:24 | XMS_ITS | Continuity of Care Document ---
Author Organization [facility] Address [address] [place] [address]- Care Team Providers Care Celery Stripper Name Role Phone Renzo GRAHAM, Declan Hou Primary Care Physician [phone] Encounter [facility] [place] Date(s): 04/24/23 - 05/24/23 [facility] [address] [place], [place] [address] Attending Physician: Kaleb De Leon Admitting [...] (oldterm) 13 08/19/08 Given 1Result Comment: [facility] [id number] 2Result Comment: [06/22/2018] given at [facility] 3Location History: [facility] 4Location History: [facility] 5Admin Note: done @ clinic 6Admin Note: given w/out incident/VIS given 7Result Comment: [id number], [id number] 8Result Comment: DONE AT [facility] 9Location History: [facility] 10Result Comment: [07/21/2014] given w/out incident 11Admin Note: [facility] INFO GIVEN TO PATIENT 12Result Comment: lot #[id number] 13Admin Note: [facility] albuterol 0.083% inhalation solution 3 mL = 2.5 mg, Inhalation, Every 6 hours, PRN for wheezing, # 360 mL, 8 Refills, Maintenance, 07/07/19 14:14:00 EDT, Solution, ICD 10 J44.9, PLEASE BILL THROUGH MED B [id number] Start Date: 07/07/19 Status: Ordered albuterol 90 mcg/inh inhalation aerosol 0 Refills, Maintenance Start Date: 04/30/20 Status: Ordered Ativan 1 mg oral tablet 1 tablet = 1 mg, By Mouth, 3 times a day, PRN for anxiety, # 84 each, 0 Refills, Acute 04/20/24 10:25:00 EDT, 04/20/23 10:25:00 EDT, Tablet, [facility]/pharmacy #2025, 165, cm, 04/17/23 11:00:00 EDT, Height, 54.7, kg, 03/20/23 8:33:00 EDT, Dry Weight Start Date: 04/20/23 Stop Date: 04/20/24 Status: Ordered Brovana 15 mcg/2 mL inhalation solution 1 each, Neb, 2 times a day, not to exceed 2 doses/day do not swallow, # 60 each, 1 Refills, Maintenance, 04/24/20 16:53:00 EDT, Solution, [facility]/pharmacy #2024, ICD Code J44.9, 165, cm, 03/12/20 8:39:00EDT, Height, 70.7, kg, 03/08/20 16:16:00 EDT, Dry... Start Date: 04/24/20 Status: Ordered budesonide 0.25 mg/2 mL inhalation suspension 0.25 mg, 2, mL, Neb, 2 times a day, for COPD J44.9. rinse mouth after use, # 120 mL, Refills 6, Tot. Refills 6, Maintenance, 03/06/20 11:34:00 EDT, Suspension, Route to Pharmacy Electronically, [id number], [facility]/pharmacy #2024,... Start Date: 03/06/20 Status: Ordered calcium-vitamin D 600 mg-400 intl units oral tablet 1 tablet, By Mouth, 2 times a day, # 180 tablet, 1 Refills, Maintenance, 10/07/22 11:54:00 EST, [facility], [facility], TAKE 1 TABLET BY MOUTH TWICE [...] capsule, 11 Refills, Maintenance, 03/03/23 10:03:00 EDT, [facility]/pharmacy #2024, 165, cm, 01/21/23 10:40:00 EDT, Height, 55.8, kg, 01/23/23 8:24:00 EDT, Dry Weight Start Date: 03/03/23 Stop Date: 02/26/24 Status: Ordered duloxetine 30 mg oral enteric coated capsule 1 capsule = 30 mg, By Mouth, Daily, # 30 capsule, 11 Refills, Maintenance, 12/15/22 9:46:00 EST, Capsule, [facility]/pharmacy #202, Partial fill upon patient request if the prescription is for a schedule II opioid drug., 165, cm, 10/09/22 11:32:00 EST, Henikole... Start Date: 12/15/22 Status: Ordered gabapentin 400 mg oral capsule 1, capsule, By Mouth, 3 times a day, # 90 capsule, Refills 11, Maintenance, 10/07/22 13:28:00 EST, Route to Pharmacy Electronically, [facility], 165, cm, 08/26/22 11:06:00 EST, Height, 64.7, [...] Refills, Maintenance, 10/15/22 9:58:00 EST, [facility], 165, cm, 10/09/22 11:32:00 EST, Height, 64.7, [...] 04/20/23 Stop Date: 04/20/24 Status: Ordered nystatin 233946 u/ml oral suspension 5 mL, By Mouth, 4 times a day, # 480 mL, 1 Refills, [facility], 165, cm, 03/28/22 11:14:00 EDT, Height, 60.4, [...] 10 J44.9, PLEASE BILL THROUGH MED B [id number], 165, cm, 06/05/21 10:01:00 EDT, Height, 61.4, [...] 20 years ago; entered on: 09/24/19 Sex Cardiology * Event Display: Non BH Cardiovascular Results Authored Date: * Event Display: Non BH Cardiovascular Results Authored Date: * Event Display: Holter Monitor Non BH Authored Date: Laboratory * Event Display: Non BH Lab Results Authored Date: * Event Display: Non BH Lab Results Authored Date: * Event Display: Non BH Lab Results Authored Date: * Event Display: Non BH Lab Results Authored Date: Cardiology Consult note * Event Display: Consult Note Cardiology Authored Date: * Event Display: Consult Note Cardiology Authored Date: * Event Display: Consult Note Cardiology Authored Date: Radiology * Event Display: Ultrasound Chest, Non-BH Authored [...] Care Team Personnel Name: Joelle Castillo [facility] Onco RN Member Role: Primary Care Nurse Name: Marilee Pitts RN Position: [facility] RN Member Role: Primary Care Nurse Name: Shawnee Schafer RN Position: [facility] SN RN Member Role: Primary Care Nurse Name: Declan Muller MD Position: [facility] Physician - Primary Care Member Role: PCP Address: Address: [address] [place] [address] [facility] [address] Name: Aylin Byrne RN Position: [facility] RN Member Role: Primary Care Nurse Name: Blaire Wilde RN Position: [facility] RN Supv Member Role: Primary Care Nurse Name: Edilma Metzger RN Position: [facility] RN Member Role: Primary Care Nurse Name: Katherine Bond RN Position: [facility] SN RN Member Role: Primary Care Nurse Name: Kerry Negron RN Position: [facility] RN Member Role: Primary Care Nurse Name: Missy Avilez RN Position: [facility] Onco RN Member Role: Primary Care Nurse Name: Katina Marcus RN Position: [facility] RN Member Role: Primary Care Nurse Name: Sienna Horne RN Position[facility] RN Member Role: Primary Care Nurse Name: Ernestine Thomas RN Position: [facility] RN Member Role: Primary Care Nurse Care Team Related Persons Name: JANICE TAYLOR Address: [address] [place] [address]
--- OUTSIDE RECORDS SUMMARY | 2024-05-04 13:24 | XMS_ITS | Continuity of Care Document ---
Author Organization [facility] Address [address] [address]- Care Team Providers Care Acoustical Tile Drill Press Operator Name Role Phone Renzo GRAHAM, Declan Hou Primary Care Physician [phone] Encounter [facility] Date(s): 04/19/20 - 05/19/20 [facility] [address] [address]- [place] Allergies, Adverse Reactions, Alerts Substance Reaction Severity [...] Note: given w/out incident/VIS given 7Result Comment: [id number], [id number] [facility] 9Result Comment: [07/21/2014] given w/out incident 10Admin Note: CDC INFO GIVEN TO PATIENT 11Result Comment: lot #[id number] 12Admin Note: [facility] albuterol 0.083% inhalation solution 3 mL = 2.5 mg, Inhalation, Every 6 hours, PRN for wheezing, # 360 mL, 8 Refills, Maintenance, 07/07/19 14:14:00 EDT, Solution, ICD 10 J44.9, PLEASE BILL THROUGH MED B [id number] Start Date: 07/07/19 Status: Ordered alendronate 70 [...] 11:34:00 EDT, Suspension, Route to Pharmacy Electronically, [id number], [facility]/pharmacy #2024,... Start Date: 03/06/20 Status: Ordered calcium-vitamin [...] 04/23/20 15:59:00 EDT, Route to Pharmacy Electronically, [facility]/pharmacy #2024, 165, cm, 03/12/20 8:39:00 EDT, Height, 70.7, kg, /... Start Date: 04/23/20 Stop Date: 05/22/20 Status: [...] Replace Required Details, Route to Pharmacy Electronically, [facility]/pharmacy #2024... Start Date: 03/02/20 Status: Ordered duloxetine 20 mg oral enteric coated capsule 1 capsule = 20 mg, By Mouth, Daily, 0 Refills, Maintenance, 04/02/20 9:18:00 EDT Start Date: 04/02/20 Status: Ordered gabapentin 400 mg oral capsule 400 mg, 1, capsule, By Mouth, 2 times a day, # 60 each, Refills 11, Tot. Refills 11, Maintenance, 02/22/20 10:31:00 EDT, Route to Pharmacy Electronically, [facility]/pharmacy #2025, 165, cm, 01/27/20 8:11:00 EDT, Height, 53.6, kg, 10/14/19 10:56:00 EST, Dry... Start Date: 02/22/20 Status: Ordered lactulose 10 gm/15 ml oral syrup 30 mL = 20 Gm, By Mouth, Daily, PRN as needed for constipation, for 30 days, # 1,000 mL, 2 Refills,Acute 08/15/20 16:25:00 EDT, 05/17/20 16:25:00 EDT, Syrup, [facility]/pharmacy #2024, 30 mL By Mouth Daily,x30 days,PRN:as [...] 05/22/20 17:00:00 EDT, 04/23/20 9:58:00 EDT, Tablet, [facility]/pharmacy #202... Start Date: 04/23/20 Stop Date: 05/22/20 Status: Ordered oxyCODONE 10 mg oral tablet 2 tablet = 20 mg, By Mouth, Every 4 hours, PRN as needed for pain, 28 day prescription patient may fill for less than quantity prescribed, # 224 tablet, 0 Refills, Acute 05/22/20 17:00:00 EDT, 04/23/20 9:58:00 EDT, Tablet, [facility]/pharmacy #2025, 165, cm... Start Date: 04/23/20 Stop [...] each, 11 Refills,Maintenance, 04/02/20 11:09:00 EDT, Tablet, [facility], 165, cm, 03/12/20 8:39:00 EDT, Height, [...] Maintenance, 03/02/2017:09:00 EDT, Route to Pharmacy Electronically, [facility]/pharmacy #2024 Tablet, 165, cm, 01/27/20 8:11:00 EDT, Height, 53.6, kg, 10/14/19 10:56:00 EST, Dry... Start Date: 03/02/20 Status: Ordered triamcinolone 0.1% topical cream 1 application, Topically, 3 times a day, PRN psoriasis rash, # 60 Gm, 5 Refills, Acute 01/01/21 10:47:00 EDT, 01/02/20 10:46:00 EDT, Cream, [facility], 1 application Topically 3 times a day,PRN:psoriasis [...] 10 J44.9, PLEASE BILL THROUGH MED B [id number], 165, cm, 01/27/20 8:11:00 EDT, Height, 53.6, [...]
--- OUTSIDE RECORDS SUMMARY | 2024-05-04 13:24 | XMS_ITS | Continuity of Care Document ---
Author Organization [facility] Address [address] [place] [address]- Care Team Providers Care Search Engine Marketing Specialist Name Role Phone Declan Muller MD Primary Care Physician [phone] Encounter [facility] [place] 08/01/20 - 08/08/20 [facility] [address] [place] [address]- [facility] Encounter Diagnosis Cough(Discharge Diagnosis) - 08/01/20 Chronic obstructive lung disease(Discharge Diagnosis) - 08/01/20 Immunodeficiency disorder, hypogammaglobulinemia(Discharge Diagnosis) - 08/01/20 Attending Physician: Declan Muller MD Allergies, Adverse [...] Note: given w/out incident/VIS given 7Result Comment: [id number], [id number] [facility] 9Result Comment: [07/21/2014] given w/out incident 10Admin Note: [facility] INFO GIVEN TO PATIENT 11Result Comment: lot #[id number] 12Admin Note: [facility] albuterol 0.083% inhalation solution 3 mL = 2.5 mg, Inhalation, Every 6 hours, PRN for wheezing, # 360 mL, 8 Refills, Maintenance, 07/07/19 14:14:00 EDT, Solution, ICD 10 J44.9, PLEASE BILL THROUGH MED B [id number] Start Date: 07/07/19 Status: Ordered alendronate 70 [...] 11:34:00 EDT, Suspension, Route to Pharmacy Electronically, [id number], [facility]/pharmacy #2024,... Start Date: 03/06/20 Status: Ordered calcium-vitamin D 600 mg-400 intl units oral tablet See Instructions, 1 tablet By Mouth twice daily, # 60 tablet, 11 Refills, Maintenance, 07/04/20 15:50:00 EDT, Tablet, [facility]/pharmacy #2024, 1 tablet By Mouth twice daily, [...] SYSTEMS/pharmacy #2024... Start Date: 03/02/20 Status: Ordered doxycycline hyclate 100 mg oral capsule 1 capsule = 100 mg, By Mouth, 2 times a day, for 10 days, # 20 capsule, 0 Refills, Acute 08/09/20 17:01:00 EDT, 07/30/20 17:01:00 EDT, Capsule, [facility], 165, cm, 05/17/20 16:00:00 EDT, [...] to Pharmacy Electronically, [facility]/pharmacy #202, 165, cm, 01/27/20 8:11:00 EDT, Height, 53.6, kg, 10/14/19 10:56:00 EST, Dry... Start Date: 02/22/20 Status: Ordered lactulose 10 gm/15 ml oral syrup 30 mL = 20 Gm, By Mouth, Daily, PRN as needed for constipation, for 30 days, # 1,000 mL, 2 Refills,Acute 08/15/20 16:25:00 EDT, 05/17/20 16:25:00 EDT, Syrup, [facility]/pharmacy #202, 30 mL By Mouth Daily,x30 days,PRN:as needed [...] 08/13/20 17:00:00 EDT, 07/16/20 8:37:00 EDT, Tablet, [facility]/pharmacy #202... Start Date: 07/16/20 Stop Date: 08/13/20 Status: Ordered naproxen 500 mg oral tablet 1 tablet = 500 mg, By Mouth, 2 times a day, PRN joint or muscle pain, # 60 tablet, 11 Refills, Acute 06/11/21 11:08:00 EDT, 06/11/20 11:08:00 EDT, Tablet, [facility]/pharmacy #2025, 165, cm, 05/17/20 16:00:00 EDT, Height, [...] 07/16/20 8:37:00 EDT, Tablet, [facility], 165, cm... Start Date: 07/16/20 Stop [...] Refills, Acute, 05/22/20 11:58:00 EDT, [id number], 165, cm, 05/17/20 16:00:00 EDT, Height, 67, [...] 10 J44.9, PLEASE BILL THROUGH MED B [id number], 165, cm, 01/27/20 8:11:00 EDT, Height, 53.6, [...] Status Clinical Service Informant Cough Discharge Diagnosis 08/01/20 Chronic obstructive lung disease Discharge Diagnosis 08/01/20 Immunodeficiency disorder, hypogammaglobulinemia Discharge Diagnosis 08/01/20 Social History Social History Type Response Smoking Status Former smoker, quit more than 30 days ago; Other: quit 20 years ago; entered on: 09/24/19 Sex
--- OUTSIDE RECORDS SUMMARY | 2024-05-04 13:24 | XMS_ITS | Continuity of Care Document ---
Author Organization [facility] Address [address] [place] [id number]- Care Team Providers Care Inspecting Machine Adjuster Name Role Phone Declan Muller MD Primary Care Physician [place] [facility] [place](s): 11/25/18 - 04/30/20 [facility] [address] [place] [id number]- [facility] Discharge Disposition: A-D/C Home Attending Physician: Heide [...] 08/19/08 Given 1Result Comment: DONE AT [facility] 2Result Comment: [06/22/2018] given at [facility] 5Admin Note: done @ clinic 6Admin Note: given w/out incident/VIS given 7Result Comment: [id number], [id number] 8[facility] 9Result Comment: [07/21/2014] given w/out incident 10Admin Note: [facility] INFO GIVEN TO PATIENT 11Result Comment: lot #[id number] 12Admin Note: [facility] albuterol 0.083% inhalation solution 3 mL = 2.5 mg, Inhalation, Every 6 hours, PRN for wheezing, # 360 mL, 8 Refills, Maintenance, 07/07/19 14:14:00 EDT, Solution, ICD 10 J44.9, PLEASE BILL THROUGH MED B [id number] Start Date: 07/07/19 Status: Ordered alendronate 70 [...] 11:34:00 EDT, Suspension, Route to Pharmacy Electronically, [id number], [facility]/pharmacy #2024,... Start Date: 03/06/20 [...] Route to Pharmacy Electronically, [facility]/pharmacy #2025... Start Date: 03/02/20 Status: Ordered [...] 04/23/20 9:58:00 EDT, Tablet, [facility]/pharmacy #5, 165, cm... Start Date: 04/23/20 Stop Date: [...] 04/02/20 11:09:00 EDT, Tablet, [facility]/pharmacy #2024, 165, cm, 03/12/20 [...] 01/13/20 11:40:00 EDT, Aerosol, [facility]/pharmacy #2025, 165, cm, 11/17/19 10:08:00 EST, Height, 53.6, kg, 10/14/19 10:56:00 EST, Dry Weight Start Date: 01/13/20 Status: Ordered Yupelri 175 mcg/3 mL inhalation solution = 175 mcg, Inhalation, Daily, j44.9, # 360 mL, 6 Refills, Maintenance, 03/06/20 11:37:00 EDT, [facility], ICD 10 J44.9, PLEASE BILL THROUGH MED B [id number], 165, cm, 01/27/20 8:11:00 EDT, Height, 53.6, [...] Range]: 1 2 3 Height 165 cm (01/27/20 8:11 AM) 165 cm (11/04/19 8:13 AM) 165 cm (10/07/19 8:33 AM) Weight 64.8 kg (04/04/20 2:32 PM) 65.5 kg (01/27/20 8:11 AM) 57.0 kg (11/04/19 8:13 AM) Oxygen Saturation [94-100 %] 95 % (01/27/20 8:11 AM) 97 % (11/04/19 8:13 AM) 94 % (10/07/19 8:33 AM) Pulse Rate [55-90 bpm] 112 bpm *H* (01/27/20 8:11 AM) 85 bpm (11/04/19 8:13 AM) 91 bpm *H* (10/07/19 8:33 AM) Body Mass Index [18.5-24.99] 24.06 (01/27/20 8:11 AM) 20.94 (11/04/19 8:13 AM) 18.95 (10/07/19 8:33 AM) Blood Pressure [90-138/55-84 mm Hg] 164/102mm Hg *H* (01/27/20 8:11 AM) 166/93mm Hg *H* (11/04/19 8:13 AM) 118/84mm Hg (10/07/19 8:33 AM) Respiratory Rate [16-30 br/min] 18 br/min (02/24/20 10:31 AM) 18 br/min (01/27/20 8:11 AM) 20 br/min (11/04/19 9:24 AM) Temperature [96.8-100.4 DegF] 98.8 DegF (01/27/20 8:11 AM) 98.0 DegF (11/04/19 8:13 AM) 98.2 DegF (10/07/19 8:33 AM) Liters per Minute 3 L/min (06/16/19 9:50 AM) Mode of Delivery (Oxygen) Room air (01/27/20 8:11 AM) Room air (11/04/19 8:13 AM) Room air (10/07/19 8:33 AM) Blood pressure sites Arm, right (01/27/20 8:11 AM) Arm, left (11/04/19 8:13 AM) Arm, right (10/07/19 8:33 AM) Temperature Route Oral (01/27/20 8:11 AM) Oral (11/04/19 8:13 AM) Oral (10/07/19 8:33 AM) Dry Weight 51.8 kg (06/16/19 9:50 AM) 60 kg (02/25/19 9:11 AM) Weight Obtained Via Standing scale (04/04/20 2:32 PM) Standing scale (01/27/20 8:11 AM) Standing scale (11/04/19 8:13 AM) Dry Weight Obtained Via Standing scale (06/16/19 9:50 AM) Social History Social History Type Response Smoking Status Former smoker, quit more than 30 days ago; Other: quit 20 years ago; entered on: 09/24/19 Sex
[2024-05-04 13:27] LABS: Basophils Absolute Auto 0.1 X10*3/uL (0.0-0.2); Basophils Percent Auto 0.3 % (0-2); Eosinophils Percent Auto 0.1 % (0-4); Hematocrit 49.3 % (42.0-52.0); Hemoglobin 16.9 g/dl (14.0-18.0); Imm Gran Abs Auto 0.08 X10*3/uL (0.00-0.03); Imm Gran Pct Auto 0.4 % (0.0-0.4); Lymphocytes Absolute Auto 0.4 X10*3/uL (1.2-4.9); Lymphocytes Percent Auto 1.6 % (20-40); MANUAL DIFF FLAG SCAN; Mean Corpuscular HGB Conc 34.3 g/dl (31.0-36.0); Mean Corpuscular Hemoglobin 32.9 pg (27.0-33.0); Mean Corpuscular Volume 95.9 fL (80.0-98.0); Mean Platelet Volume 9.6 fL (9.4-12.4); Monocytes Percent Auto 4.4 % (2-11); Neutrophils Absolute Auto 20.2 x10*3/uL (2.0-8.3); Neutrophils Percent Auto 93.2 % (45-73); Platelet Count 237 X10*3/uL (160-400); Red Blood Count 5.14 X10*6/uL (4.60-5.80); Red Cell Distribution Width 14.4 % (11.0-16.0); SCAN SMEAR FLAG 1; White Blood Count 21.7 X10*3/uL (4.8-10.8)
[2024-05-04 13:37] LABS: INTERNATIONAL NORM RATIO 0.9 (0.9-1.1); Prothrombin Time 11.2 SEC (11.1-13.3)
[2024-05-04 13:46] LABS: Alanine Aminotransferase 34 U/L (0-40); Albumin Level 4.2 g/dL (3.5-5.0); Alkaline Phosphatase 51 U/L (39-117); Anion Gap 14 (12-20); Aspartate Amino Transferase 31 U/L (5-37); Bilirubin Direct 0.2 mg/dL (0.0-0.5); Bilirubin Total 0.6 mg/dL (0.0-1.0); Blood Urea Nitrogen 30 mg/dL (9-16); Calcium 9.7 mg/dL (8.4-10.2); Carbon Dioxide 24 mmol/L (22-29); Chloride 102 mmol/L (96-108); Creatinine Clr Calc Pharmacy 42.5; Estimated Glomerular Filt Rate 57; Glucose Random 111 mg/dL (60-115); Magnesium 1.8 mg/dL (1.6-2.6); Potassium 4.9 mmol/L (3.3-5.1); Sodium 135 mmol/L (135-145); Total Protein 7.6 g/dL (6.5-8.0)
[2024-05-04 13:54] LABS: Troponin-I High Sensitivity 7.7 ng/L (<3.5-35.0)
[2024-05-04 13:55] LABS: SLIDE REVIEW VERIFIED
[2024-05-04 14:04] LABS: Influenza A PCR NEGATIVE (Negative); Influenza B PCR NEGATIVE (Negative); Resp Syncy Virus RNA Qual PCR NEGATIVE (Negative); SARS COV2 PCR INHOUSE NEGATIVE (Negative)
--- NOTE | 2024-05-04 17:43 | PC.NURSE ---
Pt presents from home, reports cough with yellow/green sputum for past couple of days with SOB. Was diagnosed with pneumonia today, has hx of frequent pneumonia. On O2 via NC as needed at home. General malaise, nausea, cough, SOB. Alert and oriented, breathing even and unlabored while at rest, on 2L O2 via NC. Reports chronic back pain, 06/28.
[2024-05-04] MEDS: 0.9 % Sodium Chloride 1,000 ML 999 ML IV ×2 (18:00→20:11)
[2024-05-04] MEDS: cefTRIAXone sodium 1 GM in 0.9 % Sodium Chloride 50 ML IV (18:07)
[2024-05-04] MEDS: Azithromycin 500 MG in 0.9 % Sodium Chloride 250 ML 125 MG IV (18:30)
--- NOTE | 2024-05-04 18:57 | MHC.EDTECH ---
This pct documented a belonging list on patient which patient states he has several meds in his bag that he takes daily. this pct did not collect the meds,RN needs to go through meds first then will be sent to the pharmacy.
--- NOTE | 2024-05-04 19:06 | PC.NURSE ---
MD aware of low BP
--- NOTE | 2024-05-04 19:23 | P.HPHOSP_ITS ---
History of Present Illness Date of Service: 05/04/24 Chief Complaint: Dyspnea This is a 63-year-old male with pertinent history of chronic hypoxemic respiratory failure on 2 L baseline oxygen due to COPD, former tobacco use disorder, hypertension, opioid use disorder on methadone, mood disorder, gastroesophageal reflux disease who presents to the emergency department for evaluation of dyspnea. Patient states his symptoms started 2 weeks ago. The symptoms progressed and he has not been feeling well over the last couple of days. Patient has been having dyspnea/worse with exertion. Also has cough with yellowish sputum production. Admits associated wheezing. He tried his home inhaler and home oxygen supplementation but no relief. Admits chills but no fever. He denies chest discomfort, palpitations, abdominal pain, changes in urinary or bowel habits. In the emergency department, patient found to be septic and imaging concerning for pneumonia. Patient requiring 3 L supplemental oxygen. Review of Systems 2 Constitutional: Constitutional: Reports fatigue, Reports malaise and Reports weakness Cardiovascular: Cardiovascular: Reports dyspnea on exertion Respiratory: Respiratory: Reports cough, Reports dyspnea on exertion and Reports wheezing Gastrointestinal: Gastrointestinal: Reports no additional gastrointestinal complaints Genitourinary: Genitourinary: Reports no additional male genitourinary complaints Neurologic: Reports weakness Endocrine: Endocrine: Reports fatigue Allergic/Immunologic: Allergic/Immunologic: Reports wheezing [facility] Medical History Pleuritic chest pain Pre-op chest exam Chondrocalcinosis Chronic neck and back pain Asthma Asthma-COPD overlap syndrome Asthma FH: bowel obstruction Bronchitis Pulmonary nodules Back pain Dyspnea COPD (chronic obstructive pulmonary disease) Family History Mother History of lung cancer Surgical History Hx of colonoscopy History of esophagogastroduodenoscopy (EGD) History of partial colectomy History of hernia repair History of lung biopsy Social History Household Members: Family Housing: House Do you presently have visiting nurse or other home services: 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) Alcohol intake: former Patient Tobacco Use Status: Former Tobacco user Tobacco use type: Cigarette Years Smoked: 15 years Smoked in Last 30 Days: No Use of substances other than those prescribed or required for medical reasons: No Substance Use Type: Marijuana Advance Directives: No Advance Directives Information Provided: Yes Do you have a plan to hurt others: No Plan service: No Current occupational status: disabled Meds Allergies Allergy/AdvReac Type Severity Reaction Status Date / Time ciprofloxacin [From Cipro] Allergy Severe Redness Verified 05/04/24 12:57 on Face levofloxacin [From Levaquin] Allergy Severe Swelling Verified 05/04/24 12:57 in the Joints hydromorphone [From Dilaudid] AdvReac Intermediate Anxiety Verified 05/04/24 12:57 Active Medications: Current Medications Azithromycin 500 mg/ Sodium (Chloride) 250 mls @ 125 mls/hr IV ONCE ONE Stop: 05/04/24 19:28 Last Admin: 05/04/24 18:30 Dose: 125 mls/hr Home Medications ?Medication ?Instructions ?Recorded ?Confirmed ?Last Taken ?Type cyclobenzaprine 10 mg tablet 10 mg PO BID PRN Muscle Spasm 11/07/20 08/27/23 Unknown History docusate sodium 100 mg capsule 200 mg PO BID PRN constipation 06/12/21 08/27/23 Unknown History lorazepam 1 mg tablet 1 mg PO TID PRN anxiety 06/12/21 08/27/23 Unknown History methadone 10 mg tablet 10 mg PO BID 12/03/21 08/27/23 Unknown History cetirizine 10 mg tablet 10 mg PO DAILY Allergy Symptoms 10/31/22 08/27/23 Unknown History nebulizers 01/08/23 07/20/23 Unknown History ondansetron 4 mg disintegrating 4 mg PO Q6H PRN nausea/vomiting 01/08/23 08/27/23 Unknown History tablet testosterone 1.62 % (20.25 mg/1.25 1 packet transdermal DAILY 07/22/23 08/27/23 Unknown History gram) transdermal gel packet nystatin 100,000 unit/mL oral 5 ml PO QID PRN thrush 07/23/23 08/27/23 Unknown History suspension metoprolol succinate 100 mg 100 mg PO DAILY 08/27/23 08/27/23 Unknown History tablet,extended release 24 hr pantoprazole 40 mg tablet,delayed 40 mg PO DAILY pain 08/27/23 08/27/23 Unknown History release cefuroxime axetil 500 mg tablet 500 mg PO BID 01/18/24 Unknown History duloxetine 30 mg capsule,delayed 30 mg PO DAILY 01/18/24 Unknown History release empagliflozin 10 mg tablet 10 mg PO DAILY 01/18/24 Unknown History (Jardiance) immune glob,gamm(IgG) 10%-sorb-IgA ml IV Q28D 01/18/24 Unknown History 0 to 50 mcg/mL intravenous solution lisinopril 40 mg tablet 40 mg PO DAILY 01/18/24 Unknown History testosterone 81 mg topical QAM 01/18/24 Unknown History denosumab 60 mg/mL subcutaneous mg subcut 05/04/24 Unknown History syringe (Prolia) fluocinonide 0.05 % topical cream appl topical BID PRN Rash 05/04/24 Unknown History meloxicam 15 mg tablet 15 mg PO DAILY PRN low back pain 05/04/24 Unknown History revefenacin 175 mcg/3 mL solution mcg inhalation 05/04/24 Unknown History for nebulization (Sangi) valacyclovir 500 mg tablet 500 mg PO BID 05/04/24 Unknown History valacyclovir 500 mg tablet 500 mg PO BID 05/04/24 05/04/24 Unknown History Physical Exam 2 Vital Signs and Narrative: Vital Signs: Last Vital Signs Temp 98.9 F 05/04/24 12:52 Pulse 79 05/04/24 18:06 Resp 20 05/04/24 18:54 BP 95/68 05/04/24 18:54 Pulse Ox 95 05/04/24 18:06 O2 Del Method Nasal Cannula 05/04/24 18:06 O2 Flow Rate 2 05/04/24 18:06 Oxygen Flow Rate 2 05/04/24 18:06 BMI result Body Mass Index 18.3 Middle-aged male lying in bed in mild distress on supplemental oxygen Neck supple, no JVD Regular rate and rhythm, S1-S2 heard Bilateral wheezing appreciated Abdomen soft nontender, no guarding, no rigidity Patient is awake, alert and oriented to self, place, time and person ; no focal motor deficit Psych: Normal mood No pedal edema Results Labs 05/04/24 13:21 05/04/24 13:21 Labs: Laboratory Results - last 24 hr 05/04/24 05/04/24 13:21 18:03 MCV 95.9 MCH 32.9 MCHC 34.3 RDW 14.4 Plt Count 237 D MPV 9.6 Immature Gran % (Auto) 0.4 Neut % (Auto) 93.2 H Lymph % (Auto) 1.6 L [place] % (Auto) 4.4 Eos % (Auto) 0.1 Baso % (Auto) 0.3 Lymph # (Auto) 0.4 L [place] # (Auto) 1.0 Eos # (Auto) 0.0 Baso # (Auto) 0.1 Abs Immat Gran (auto) 0.08 H Absolute Neuts (auto) 20.2 H Absolute Nucleated RBC 0.000 Nucleated RBC % (auto) 0.0 Smear Tech's Comments VERIFIED PT 11.2 INR 0.9 Anion Gap 14 Estim Creat Clear Calc 42.5 Estimated GFR 57 Random Glucose 111 Lactic Acid 2.0 Calcium 9.7 Magnesium 1.8 Total Bilirubin 0.6 Direct Bilirubin 0.2 AST 31 ALT 34 Alkaline Phosphatase 51 Troponin I High Sens 7.7 D Total Protein 7.6 Albumin 4.2 Influenza Type A (PCR) NEGATIVE Influenza Type B (PCR) NEGATIVE RSV RNA Qual (PCR) NEGATIVE SARS-CoV-2 RNA (RT-PCR) NEGATIVE Imaging Radiologist's Impressions: Impressions Chest X-Ray 05/04/24 14:05 IMPRESSION: Emphysema. New airspace opacity in the lingula or left lower lobe consistent with pneumonia. Recommend follow-up in 4-6 weeks to ensure resolution and establish new baseline. Assessment and Plan (1) Hypoxia: Status: Acute (2) Pneumonia: Status: Acute (3) COPD exacerbation: Status: Acute Plan This is a 63-year-old male with pertinent history of chronic hypoxemic respiratory failure on 2 L baseline oxygen due to COPD, former tobacco use disorder, hypertension, opioid use disorder on methadone, mood disorder, gastroesophageal reflux disease who presents to the emergency department for evaluation of dyspnea. #. Sepsis due to pneumonia: Will admit patient and initiate empiric IV antibiotics. Resuscitated with IV crystalloids. Blood culture and sputum culture pending. Lactic acid obtained. #. Acute on chronic hypoxemic respiratory failure due to acute exacerbation of COPD in the setting of above: Initiating systemic steroids. Scheduled and p.r.n. DuoNebs. Continue home inhaler and home p.o. medications #. Opioid use disorder: On methadone. #. Essential hypertension: Hold antihypertensives in the setting of sepsis. Resume as appropriate #. Mood disorder: Continue home antihypertensives #. Gastroesophageal reflux disease: On PPI Med rec pending DVT prophylaxis: Lovenox Full code Admit as inpatient and will require two night minimum hospital stay for supplemental oxygen, IV steroids IV antibiotics (as above), which is not possible in a lesser acute setting. Quality Stroke Does the patient have a stroke diagnosis?: No VTE Prior VTE?: No VTE Risk Level:: Medical - moderate - high VTE Device Contraindication: Treatment Not Indicated VTE Drug Contraindication: N/A - Med Ordered
[2024-05-04] MEDS: Enoxaparin Sodium 40 MG/0.4 ML SYRINGE SUBCUT (20:15)
[2024-05-04] MEDS: methylPREDNISolone Sod Succ 125 MG/2 ML VIAL IVPUSH (20:16)
[2024-05-04] MEDS: Albuterol/Iprat 2.5/0.5MG 3 ML AMPUL.NEB INHALE (21:00)
--- NOTE | 2024-05-04 21:18 | PHA.MEDREC ---
Addendum entered by Tanisha Pereira RPh 05/04/24 22:02: Dr. Wise was notified that even though pharmacy claim is methadone 10 mg bid, pt states that he takes it tid and med rec was entered as bid. Addendum entered by Sabrina Munguia 05/04/24 21:49: Patient states he is taking Methadone 10 mg tid, however the claim states Methadone 10 mg bid Original Note: Pharmacy Consult ? Medication Reconciliation Pharmacy has completed the medication reconciliation. Spoke to patient and daughter who was on the phone to confirm med list. Patient states he is no longer on Lorazepam 1 mg tid prn, Nystatatin 5 ml qid prn. Prolia inject q 6months, last dose was 12-29-23, next dose is in September. Patient states he was prescribed Prednisone 40 mg taper dose, he took 40 mg today, however there is no claim on file.
[2024-05-04] MEDS: Cyclobenzaprine HCl 10 MG TABLET PO (23:01)
[2024-05-04] MEDS: methADONE HCl 10 MG TABLET PO (23:01)
[2024-05-04] MEDS: valACYclovir HCL 500 MG TABLET PO (23:01)
[2024-05-04] MEDS: Melatonin 3 MG TABLET 6 MG PO (23:02)
[2024-05-04] MEDS: 0.9 % Sodium Chloride Flush 3 ML SYRINGE IVFLUSH (23:03)
[2024-05-05] VITALS (8 sets, daily range): BP systolic 101–103; BP diastolic 55–59; PULSE 81–102; RESP 18–20; TEMP 36.2–36.5; O2SAT 98–99
[2024-05-05] MEDS: guaiFEN/Codeine SF 200/20/10ML 10 ML LIQUID 5 ML PO ×3 (02:59→15:39)
--- NOTE | 2024-05-05 07:02 | PC.NURSE ---
Patient admitted to [facility] from ED at 22:15 for pna. A&Ox4. Arrived on 3L nc, pt states baseline is 2L. Denies sob, states breathing feels much better than earlier . Lungs clear/dim. Breathing is even and unlabored without distress at rest and with ambulation in room, steady independently. Pt reports recently productive cough though no sputum produced this shift. Cough syrup requested and ordered by MD, given with +effect. Call nuñez within reach. Safety measures in place. Handoff report given to oncoming RN.
[2024-05-05 07:14] LABS: Basophils Percent Auto 0.1 % (0-2); Hematocrit 38.3 % (42.0-52.0); Hemoglobin 12.9 g/dl (14.0-18.0); Imm Gran Abs Auto 0.21 X10*3/uL (0.00-0.03); Imm Gran Pct Auto 0.9 % (0.0-0.4); Lymphocytes Absolute Auto 0.5 X10*3/uL (1.2-4.9); Lymphocytes Percent Auto 2.1 % (20-40); MANUAL DIFF FLAG SCAN; Mean Corpuscular HGB Conc 33.7 g/dl (31.0-36.0); Mean Corpuscular Hemoglobin 32.5 pg (27.0-33.0); Mean Corpuscular Volume 96.5 fL (80.0-98.0); Mean Platelet Volume 10.2 fL (9.4-12.4); Monocytes Absolute Auto 0.5 X10*3/uL (0.1-1.2); Monocytes Percent Auto 2.1 % (2-11); Neutrophils Absolute Auto 21.5 x10*3/uL (2.0-8.3); Neutrophils Percent Auto 94.8 % (45-73); Platelet Count 199 X10*3/uL (160-400); Red Blood Count 3.97 X10*6/uL (4.60-5.80); Red Cell Distribution Width 14.5 % (11.0-16.0); SCAN SMEAR FLAG 1; White Blood Count 22.7 X10*3/uL (4.8-10.8)
[2024-05-05 07:26] LABS: Anion Gap 11 (12-20); Blood Urea Nitrogen 27 mg/dL (9-16); Calcium 8.5 mg/dL (8.4-10.2); Carbon Dioxide 23 mmol/L (22-29); Chloride 112 mmol/L (96-108); Creatinine Clr Calc Pharmacy 55.9; Estimated Glomerular Filt Rate > 60; Glucose Random 140 mg/dL (60-115); Potassium 4.6 mmol/L (3.3-5.1); Sodium 141 mmol/L (135-145)
[2024-05-05 07:37] LABS: SLIDE REVIEW VERIFIED
[2024-05-05] MEDS: Albuterol/Iprat 2.5/0.5MG 3 ML AMPUL.NEB INHALE ×2 (07:40→11:23)
[2024-05-05] MEDS: Budesonide 0.5 MG/2 ML AMPUL.NEB INHALE (07:41)
[2024-05-05] MEDS: 0.9 % Sodium Chloride Flush 3 ML SYRINGE IVFLUSH ×2 (08:57→15:53)
[2024-05-05] MEDS: methylPREDNISolone Sod Succ 40 MG/ML VIAL IVPUSH (08:57)
[2024-05-05] MEDS: methADONE HCl 10 MG TABLET PO (08:58)
[2024-05-05] MEDS: Omeprazole 20 MG CAPSULE.DR PO (08:58)
[2024-05-05] MEDS: Empagliflozin 10 MG TABLET PO (08:58)
[2024-05-05] MEDS: lisinopriL 40 MG TABLET PO (08:59)
[2024-05-05] MEDS: Metoprolol Succinate ER 100 MG TAB.ER.24H PO (09:00)
[2024-05-05] MEDS: DULoxetine HCl 30 MG CAPSULE.DR PO (09:00)
[2024-05-05] MEDS: valACYclovir HCL 500 MG TABLET PO (09:00)
[2024-05-05] MEDS: Loratadine 10 MG TABLET PO (09:00)
[2024-05-05] MEDS: Lidocaine 4 % Patch ADH..PATCH 1 PATCH TRANSDERMA (09:02)
--- NOTE | 2024-05-05 09:07 | PM.CNPUL ---
History of Present Illness History of Present Illness Consult date: 05/05/24 Chief complaint: Dyspnea Narrative: This is an inpatient pulmonary consultation. The patient is a 63-year-old male with pertinent history of chronic hypoxemic respiratory failure on 2 L baseline oxygen due to COPD, former tobacco use disorder, hypertension, opioid use disorder on methadone, mood disorder, gastroesophageal reflux disease who presents to the emergency department for evaluation of dyspnea. Patient states his symptoms started 2 weeks ago. The symptoms progressed and he has not been feeling well over the last couple of days. Patient has been having dyspnea/worse with exertion. Also has cough with yellowish sputum production. Admits associated wheezing. He tried his home inhaler and home oxygen supplementation but no relief. Admits chills but no fever. He denies chest discomfort, palpitations, abdominal pain, changes in urinary or bowel habits. In the emergency department, patient found to be septic and imaging concerning for pneumonia. Patient requiring 3 L supplemental oxygen. I personally reviewed his CXR with an patchy opacity in the LLL zone. He was admitted for IV antibiotics. WBC still very elevated. Review of Systems Constitutional: Constitutional: Reports fatigue, Reports malaise and Reports weakness ENT: Reports Normal hearing present Cardiovascular: Cardiovascular: Reports dyspnea on exertion Respiratory: Respiratory: Reports cough, Reports dyspnea on exertion and Reports wheezing Gastrointestinal: Gastrointestinal: Reports no additional gastrointestinal complaints Genitourinary: Genitourinary: Reports no additional male genitourinary complaints Neurologic: Reports Normal hearing present and Reports weakness Endocrine: Endocrine: Reports fatigue Allergic/Immunologic: Allergic/Immunologic: Reports wheezing PMFSH Past Medical History Medical History (Updated 05/05/24 @ 09:10 by Paulino Ba MD) Chronic respiratory failure Pleuritic chest pain Pre-op chest exam Chondrocalcinosis Chronic neck and back pain Asthma Asthma-COPD overlap syndrome Asthma FH: bowel obstruction Bronchitis Pulmonary nodules Back pain Dyspnea COPD (chronic obstructive pulmonary disease) Family History Family History Mother History of lung cancer Surgical History Surgical History Hx of colonoscopy History of esophagogastroduodenoscopy (EGD) History of partial colectomy History of hernia repair History of lung biopsy Social History Social History Household Members: Spouse and Children Housing: House Do you presently have visiting nurse or other home services: No Alcohol intake: former Patient Tobacco Use Status: Former Tobacco user Tobacco use type: Cigarette Years Smoked: 15 years Second Hand Smoke Exposure: No Substance Use Type: Caffiene service: No Current occupational status: disabled Meds Allergies Allergy/AdvReac Type Severity Reaction Status Date / Time ciprofloxacin [From Cipro] Allergy Severe Redness Verified 05/04/24 12:57 on Face levofloxacin [From Levaquin] Allergy Severe Swelling Verified 05/04/24 12:57 in the Joints hydromorphone [From Dilaudid] AdvReac Intermediate Anxiety Verified 05/04/24 12:57 Active Medications: Current Medications Acetaminophen (Acetaminophen 325 Mg Tablet) 650 mg PO Q6H PRN PRN Reason: Pain, Mild (Pain Scale 1-3), fever or headache Albuterol/Ipratropium (Albuterol/Iprat 2.5/0.5mg 3 Ml Ampul.Neb) 3 ml INHALE RQ4H WHILE AWAKE [facility] Last Admin: 05/05/24 07:40 Dose: 3 ml Albuterol/Ipratropium (Albuterol/Iprat 2.5/0.5mg 3 Ml Ampul.Neb) 3 ml INHALE Q4H PRN PRN Reason: Wheezing Budesonide (Budesonide 0.5 Mg/2 Ml Ampul.Neb) 0.5 mg INHALE BID [facility] Last Admin: 05/05/24 07:41 Dose: 0.5 mg Calcium Carbonate (Calcium Carbonate 750 Mg Tab.Chew) 750 mg PO Q4H PRN PRN Reason: Heartburn Cyclobenzaprine HCl (Cyclobenzaprine Hcl 10 Mg Tablet) 10 mg PO BID PRN PRN Reason: Muscle Spasm Last Admin: 05/04/24 23:01 Dose: 10 mg Docusate Sodium (Docusate Sodium 100 Mg Capsule) 200 mg PO BID PRN PRN Reason: constipation Duloxetine HCl (Duloxetine Hcl 30 Mg Capsule.Dr) 30 mg PO DAILY [facility] Last Admin: 05/05/24 09:00 Dose: 30 mg Empagliflozin (Empagliflozin 10 Mg Tablet) 10 mg PO DAILY [facility] Last Admin: 05/05/24 08:58 Dose: 10 mg Enoxaparin Sodium (Enoxaparin Sodium 40 Mg/0.4 Ml Syringe) 40 mg SUBCUT Q24H [facility] Last Admin: 05/04/24 20:15 Dose: 40 mg Guaifenesin/Codeine Phosphate (Guaifen/Codeine Sf 200/20/10ml 10 Ml Liquid) 5 ml PO Q4H PRN PRN Reason: Cough Last Admin: 05/05/24 02:59 Dose: 5 ml Ceftriaxone Sodium 1 gm/ (Sodium Chloride) 50 mls @ 100 mls/hr IV Q24H [facility] Azithromycin 500 mg/ Sodium (Chloride) 250 mls @ 125 mls/hr IV Q24H [facility] Lidocaine (Lidocaine 4 % Patch Adh..Patch) 1 patch TRANSDERMA DAILY [facility] Last Admin: 05/05/24 09:02 Dose: 1 patch Lisinopril (Lisinopril 40 Mg Tablet) 40 mg PO DAILY [facility]; Protocol Last Admin: 05/05/24 08:59 Dose: 40 mg Loratadine (Loratadine 10 Mg Tablet) 10 mg PO DAILY [facility] Last Admin: 05/05/24 09:00 Dose: 10 mg Magnesium Hydroxide (Milk Of Magnesia 30 Ml Oral.Susp) 30 ml PO DAILY PRN PRN Reason: Constipation Melatonin (Melatonin 3 Mg Tablet) 6 mg PO BEDTIME PRN PRN Reason: Insomnia Last Admin: 05/04/24 23:02 Dose: 6 mg Methadone HCl (Methadone Hcl 10 Mg Tablet) 10 mg PO BID [facility] Last Admin: 05/05/24 08:58 Dose: 10 mg Methylprednisolone Sodium Succinate (Methylprednisolone Sod Succ 40 Mg/Ml Vial) 40 mg IVPUSH Q12H [facility] Last Admin: 05/05/24 08:57 Dose: 40 mg Metoprolol Succinate (Metoprolol Succinate Er 100 Mg Tab.Er.24h) 100 mg PO DAILY [facility]; Protocol Last Admin: 05/05/24 09:00 Dose: 100 mg Naproxen (Naproxen 500 Mg Tablet) 500 mg PO BID PRN PRN Reason: low back pain Non-Formulary Medication (Arformoterol) 2 ml INHALE BID [facility] Non-Formulary Medication (Revefenacin [Yupelri]) 175 mcg INHALE DAILY [facility] Non-Formulary Medication (Testosterone) 1 packet TRANSDERMA DAILY [facility] Omeprazole (Omeprazole 20 Mg Capsule.Dr) 20 mg PO DAILY [facility] Last Admin: 05/05/24 08:58 Dose: 20 mg Ondansetron HCl (Ondansetron Hcl 4 Mg/2 Ml Vial) 4 mg IVPUSH Q8H PRN PRN Reason: Nausea and Vomiting Roflumilast (Roflumilast 500 Mcg Tablet) 500 mcg PO DAILY [facility] Sodium Chloride (0.9 % Sodium Chloride Flush 3 Ml Syringe) 3 ml IVFLUSH QSHIFT [facility] Last Admin: 05/05/24 08:57 Dose: 3 ml Triamcinolone Acetonide (Triamcinolone Acet 0.5 % Cream 15 Gm Tube) 1 appl TOPICAL BID PRN PRN Reason: Rash Valacyclovir HCl (Valacyclovir Hcl 500 Mg Tablet) 500 mg PO BID [facility] Last Admin: 05/05/24 09:00 Dose: 500 mg Home Medications ?Medication ?Instructions ?Recorded ?Confirmed ?Last Taken ?Type cyclobenzaprine 10 mg tablet 10 mg PO BID PRN Muscle Spasm 11/07/20 05/04/24 Unknown History docusate sodium 100 mg capsule 200 mg PO BID PRN constipation 06/12/21 05/04/24 Unknown History methadone 10 mg tablet 10 mg PO BID 12/03/21 05/04/24 05/03/24 History cetirizine 10 mg tablet 10 mg PO DAILY Allergy Symptoms 10/31/22 05/04/24 Unknown History nebulizers 01/08/23 07/20/23 Unknown History ondansetron 4 mg disintegrating 4 mg PO Q6H PRN nausea/vomiting 01/08/23 05/04/24 Unknown History tablet testosterone 1.62 % (20.25 mg/1.25 1 packet transdermal DAILY 07/22/23 05/04/24 05/03/24 History gram) transdermal gel packet metoprolol succinate 100 mg 100 mg PO DAILY 08/27/23 05/04/24 05/03/24 History tablet,extended release 24 hr pantoprazole 40 mg tablet,delayed 40 mg PO DAILY 08/27/23 05/04/24 05/03/24 History release duloxetine 30 mg capsule,delayed 30 mg PO DAILY 01/18/24 05/04/24 05/03/24 History release empagliflozin 10 mg tablet 10 mg PO DAILY 01/18/24 05/04/24 05/03/24 History (Jardiance) lisinopril 40 mg tablet 40 mg PO DAILY 01/18/24 05/04/24 05/03/24 History denosumab 60 mg/mL subcutaneous 60 mg subcut [id number] 05/04/24 05/04/24 02/28/24 History syringe (Prolia) fluocinonide 0.05 % topical cream 1 appl topical BID PRN Rash 05/04/24 05/04/24 Unknown History meloxicam 15 mg tablet 15 mg PO DAILY PRN low back pain 05/04/24 05/04/24 Unknown History prednisone 10 mg tablet 40 mg PO DAILY 05/04/24 05/04/24 05/04/24 History revefenacin 175 mcg/3 mL solution 175 mcg inhalation DAILY 05/04/24 05/04/24 05/03/24 History for nebulization (Ezio) valacyclovir 500 mg tablet 500 mg PO BID 05/04/24 05/04/24 05/03/24 History Physical Exam Vital Signs: Vital Signs: Last Vital Signs Temp 97.1 F 05/05/24 07:30 Pulse 95 05/05/24 09:00 Resp 20 05/05/24 07:43 BP 103/58 L 05/05/24 09:00 Pulse Ox 98 05/05/24 07:30 O2 Del Method Nasal Cannula 05/05/24 07:30 O2 Flow Rate 3 05/05/24 07:30 Oxygen Flow Rate 2 05/04/24 18:06 BMI result Body Mass Index 19.9 Const: General: comfortable and alert HEENT: General nose exam: Abnormal external nose present and Nasal discharge present Eyes: Pupils: Equal, round and reactive pupils present Neck: Neck: Yes normal visual inspection, Yes full ROM and Yes no lymphadenopathy Chest: Chest palpation & inspection: normal inspection of the chest Resp: Effort & Inspection: normal respiratory effort, no use of accessory muscles and prolonged expiratory phase Auscultation: no crackles, no rales, no rhonchi, no wheezes and diminished lung sounds Cardio: Rate: regular rate Rhythm: regular rhythm Heart sounds: S1 normal heart sound present and S2 normal heart sound present GI: Palpation (GI): Tenderness to palpation present (GI) in the LUQ and in the RUQ; with no rebound tenderness, no guarding and No Rebound tenderness present Auscultation: normal bowel sounds : General: Yes no CVA tenderness Back/Spine/Pelvis: Back: no CVA tenderness Skin: General skin exam: rashes and/or lesions noted Neuro: Cranial nerves: Yes Equal, round and reactive pupils present and Yes Normal hearing present Extrem: General: No no pedal edema Results Laboratory Findings 05/05/24 05:19 05/05/24 05:19 ABG, PT/INR, D-dimer: PT/INR, D-dimer PT 11.2 SEC (11.1-13.3) 05/04/24 13:21 INR 0.9 (0.9-1.1) 05/04/24 13:21 Abnormal lab findings: Abnormal Labs 05/04/24 05/05/24 13:21 05:19 WBC 21.7 H 22.7 H RBC 3.97 L D Hgb 12.9 L D Hct 38.3 L D Immature Gran % (Auto) 0.9 H Neut % (Auto) 93.2 H 94.8 H Lymph % (Auto) 1.6 L 2.1 L Lymph # (Auto) 0.4 L 0.5 L Abs Immat Gran (auto) 0.08 H 0.21 H Absolute Neuts (auto) 20.2 H 21.5 H Chloride 112 H Anion Gap 11 L BUN 30 H 27 H Random Glucose 140 H Assessment and Plan (1) COPD exacerbation: Status: Acute (2) Pneumonia: Qualifiers: Pneumonia type: due to unspecified organism Laterality: left Lung location: lower lobe of lung Qualified Code(s): J18.9 - Pneumonia, unspecified organism Status: Acute (3) Chronic respiratory failure: Qualifiers: Respiratory failure complication: hypoxia Qualified Code(s): J96.11 - Chronic respiratory failure with hypoxia Status: Acute (4) Cardiomyopathy: Qualifiers: Cardiomyopathy type: unspecified Qualified Code(s): I42.9 - Cardiomyopathy, unspecified Status: Acute Plan continue CXT and ZTX IV x 24 hours, then switch to vantin/ZTX PO if better to moplete an 8 day course continue oxygen supplementation to keep pox>90% continue respiratory therapy solumedrol ->PO prednisone 40mg starting tomorrow check bloodgas Procedures Date of Service Date of Service: 05/05/24
[2024-05-05] MEDS: Roflumilast 500 MCG TABLET PO (09:44)
--- NOTE | 2024-05-05 10:31 | P.PNIM_ITS ---
Subjective Subjective Date of Service: 05/05/24 Interval History: sob a bit better ENT Ears, Nose, Mouth, and Throat: Reports Normal hearing present Neurologic Neurologic: Reports Normal hearing present Physical Exam 2 Vital Signs: Vital Signs: Last Vital Signs Temp 97.1 F 05/05/24 07:30 Pulse 95 05/05/24 09:00 Resp 20 05/05/24 07:43 BP 103/58 L 05/05/24 09:00 Pulse Ox 98 05/05/24 07:30 O2 Del Method Nasal Cannula 05/05/24 07:30 O2 Flow Rate 3 05/05/24 07:30 Oxygen Flow Rate 2 05/04/24 18:06 BMI result Body Mass Index 19.9 Const: General: comfortable and alert HEENT: General nose exam: Abnormal external nose present and Nasal discharge present Eyes: Pupils: Equal, round and reactive pupils present Neck: Neck: Yes normal visual inspection, Yes full ROM and Yes no lymphadenopathy Chest: Chest palpation & inspection: normal inspection of the chest Resp: Effort & Inspection: normal respiratory effort, no use of accessory muscles and prolonged expiratory phase Auscultation: no crackles, no rales, no rhonchi, no wheezes and diminished lung sounds Cardio: Rate: regular rate Rhythm: regular rhythm Heart sounds: S1 normal heart sound present and S2 normal heart sound present GI: Palpation (GI): Tenderness to palpation present (GI) in the LUQ and in the RUQ; with no rebound tenderness, no guarding and No Rebound tenderness present Auscultation: normal bowel sounds : General: Yes no CVA tenderness Back/Spine/Pelvis: Back: no CVA tenderness Skin: General skin exam: rashes and/or lesions noted Neuro: Cranial nerves: Yes Equal, round and reactive pupils present and Yes Normal hearing present Extrem: General: No no pedal edema Objective Data Active Medications Acetaminophen (Acetaminophen 325 Mg Tablet) 650 mg PO Q6H PRN PRN Reason: Pain, Mild (Pain Scale 1-3), fever or headache Albuterol/Ipratropium (Albuterol/Iprat 2.5/0.5mg 3 Ml Ampul.Neb) 3 ml INHALE RQ4H WHILE AWAKE [facility] Last Admin: 05/05/24 07:40 Dose: 3 ml Documented By: FARRUKH Albuterol/Ipratropium (Albuterol/Iprat 2.5/0.5mg 3 Ml Ampul.Neb) 3 ml INHALE Q4H PRN PRN Reason: Wheezing Budesonide (Budesonide 0.5 Mg/2 Ml Ampul.Neb) 0.5 mg INHALE BID [facility] Last Admin: 05/05/24 07:41 Dose: 0.5 mg Documented By: FARRUKH Calcium Carbonate (Calcium Carbonate 750 Mg Tab.Chew) 750 mg PO Q4H PRN PRN Reason: Heartburn Cyclobenzaprine HCl (Cyclobenzaprine Hcl 10 Mg Tablet) 10 mg PO BID PRN PRN Reason: Muscle Spasm Last Admin: 05/04/24 23:01 Dose: 10 mg Documented By: KATHY Docusate Sodium (Docusate Sodium 100 Mg Capsule) 200 mg PO BID PRN PRN Reason: constipation Duloxetine HCl (Duloxetine Hcl 30 Mg Capsule.Dr) 30 mg PO DAILY [facility] Last Admin: 05/05/24 09:00 Dose: 30 mg Documented By: SEUN Empagliflozin (Empagliflozin 10 Mg Tablet) 10 mg PO DAILY [facility] Last Admin: 05/05/24 08:58 Dose: 10 mg Documented By: SEUN Enoxaparin Sodium (Enoxaparin Sodium 40 Mg/0.4 Ml Syringe) 40 mg SUBCUT Q24H [facility] Last Admin: 05/04/24 20:15 Dose: 40 mg Documented By: ONEAL Guaifenesin/Codeine Phosphate (Guaifen/Codeine Sf 200/20/10ml 10 Ml Liquid) 5 ml PO Q4H PRN PRN Reason: Cough Last Admin: 05/05/24 09:44 Dose: 5 ml Documented By: SEUN Ceftriaxone Sodium 1 gm/ (Sodium Chloride) 50 mls @ 100 mls/hr IV Q24H [facility] Azithromycin 500 mg/ Sodium (Chloride) 250 mls @ 125 mls/hr IV Q24H [facility] Lidocaine (Lidocaine 4 % Patch Adh..Patch) 1 patch TRANSDERMA DAILY [facility] Last Admin: 05/05/24 09:02 Dose: 1 patch Documented By: SEUN Lisinopril (Lisinopril 40 Mg Tablet) 40 mg PO DAILY [facility]; Protocol Last Admin: 05/05/24 08:59 Dose: 40 mg Documented By: SEUN Loratadine (Loratadine 10 Mg Tablet) 10 mg PO DAILY [facility] Last Admin: 05/05/24 09:00 Dose: 10 mg Documented By: SEUN Magnesium Hydroxide (Milk Of Magnesia 30 Ml Oral.Susp) 30 ml PO DAILY PRN PRN Reason: Constipation Melatonin (Melatonin 3 Mg Tablet) 6 mg PO BEDTIME PRN PRN Reason: Insomnia Last Admin: 05/04/24 23:02 Dose: 6 mg Documented By: KATHY Methadone HCl (Methadone Hcl 10 Mg Tablet) 10 mg PO BID [facility] Last Admin: 05/05/24 08:58 Dose: 10 mg Documented By: SEUN Methylprednisolone Sodium Succinate (Methylprednisolone Sod Succ 40 Mg/Ml Vial) 40 mg IVPUSH Q12H [facility] Last Admin: 05/05/24 08:57 Dose: 40 mg Documented By: SEUN Metoprolol Succinate (Metoprolol Succinate Er 100 Mg Tab.Er.24h) 100 mg PO DAILY [facility]; Protocol Last Admin: 05/05/24 09:00 Dose: 100 mg Documented By: SEUN Naproxen (Naproxen 500 Mg Tablet) 500 mg PO BID PRN PRN Reason: low back pain Non-Formulary Medication (Arformoterol) 2 ml INHALE BID [facility] Non-Formulary Medication (Revefenacin [Yupelri]) 175 mcg INHALE DAILY [facility] Non-Formulary Medication (Testosterone) 1 packet TRANSDERMA DAILY [facility] Omeprazole (Omeprazole 20 Mg Capsule.Dr) 20 mg PO DAILY [facility] Last Admin: 05/05/24 08:58 Dose: 20 mg Documented By: SEUN Ondansetron HCl (Ondansetron Hcl 4 Mg/2 Ml Vial) 4 mg IVPUSH Q8H PRN PRN Reason: Nausea and Vomiting Roflumilast (Roflumilast 500 Mcg Tablet) 500 mcg PO DAILY [facility] Last Admin: 05/05/24 09:44 Dose: 500 mcg Documented By: SEUN Sodium Chloride (0.9 % Sodium Chloride Flush 3 Ml Syringe) 3 ml IVFLUSH QSHIFT [facility] Last Admin: 05/05/24 08:57 Dose: 3 ml Documented By: SEUN Triamcinolone Acetonide (Triamcinolone Acet 0.5 % Cream 15 Gm Tube) 1 appl TOPICAL BID PRN PRN Reason: Rash Valacyclovir HCl (Valacyclovir Hcl 500 Mg Tablet) 500 mg PO BID [facility] Last Admin: 05/05/24 09:00 Dose: 500 mg Documented By: SEUN Labs 05/05/24 05:19 05/05/24 05:19 Labs: Laboratory Results - last 24 hr 05/04/24 05/04/24 05/05/24 13:21 18:03 05:19 MCV 95.9 96.5 MCH 32.9 32.5 MCHC 34.3 33.7 RDW 14.4 14.5 Plt Count 237 D 199 MPV 9.6 10.2 Immature Gran % (Auto) 0.4 0.9 H Neut % (Auto) 93.2 H 94.8 H Lymph % (Auto) 1.6 L 2.1 L [place] % (Auto) 4.4 2.1 Eos % (Auto) 0.1 0.0 Baso % (Auto) 0.3 0.1 Lymph # (Auto) 0.4 L 0.5 L [place] # (Auto) 1.0 0.5 Eos # (Auto) 0.0 0.0 Baso # (Auto) 0.1 0.0 Abs Immat Gran (auto) 0.08 H 0.21 H Absolute Neuts (auto) 20.2 H 21.5 H Absolute Nucleated RBC 0.000 0.000 Nucleated RBC % (auto) 0.0 0.0 Smear Tech's Comments VERIFIED VERIFIED PT 11.2 INR 0.9 Anion Gap 14 11 L Estim Creat Clear Calc 42.5 55.9 Estimated GFR 57 > 60 Random Glucose 111 140 H Lactic Acid 2.0 Calcium 9.7 8.5 D Magnesium 1.8 Total Bilirubin 0.6 Direct Bilirubin 0.2 AST 31 ALT 34 Alkaline Phosphatase 51 Troponin I High Sens 7.7 D Total Protein 7.6 Albumin 4.2 Influenza Type A (PCR) NEGATIVE Influenza Type B (PCR) NEGATIVE RSV RNA Qual (PCR) NEGATIVE SARS-CoV-2 RNA (RT-PCR) NEGATIVE Assessment and Plan (1) Chronic respiratory failure: Status: Acute Plan 63M PMH chronic hypoxic respiratory failure on 2 L home O2 due to COPD, hypertension, opiate dependence, mood disorder, GERD presented with shortness of breath Sepsis and acute on chronic hypoxic respiratory failure due to pneumonia and COPD with acute decompensation Continue IV steroids, DuoNebs, ceftriaxone, azithromycin Palm eval Opiate dependence Methadone Hypertension Meds on hold for relative hypotension Mood disorder Cymbalta DVT prophylaxis with Lovenox Full Code reason for continued hospitalization: Shortness of breath Quality Stroke Does the patient have a stroke diagnosis?: No VTE Prior VTE?: No VTE Risk Level:: Medical - moderate - high VTE Device Contraindication: Treatment Not Indicated VTE Drug Contraindication: N/A - Med Ordered
[2024-05-05 11:19] LABS: Venous Blood Gas Refer to POC result
[2024-05-05 11:20] LABS: VBG Base Excess -1.7 mmol/L; VBG HCO3 24 mmol/L (22-26); VBG pCO2 46 mmHg; VBG pH 7.32 (7.32-7.43); VBG pO2 39 mmHg
--- NOTE | 2024-05-05 11:52 | MHC.CLN ---
RE: CONSULT FOR WT LOSS REVIEWED PREVIOUS WT HX: CURRENT WT 54.2KG PREVIOUS WT 53.5KG (04/16/23) WT STABLE X 1 YEAR AND WNL RECOMMEND CHANGING DIET TO REGULAR CONTINUE CURRENT CARE PLAN
--- NOTE | 2024-05-05 15:17 | MHC.CM.PN ---
PT, WHO PREFERS TO BE CALLED ZAIDA, SAYS HE LIVES WITH HIS AND KIDS HE HAS A WAITSTAFF CAPTAIN 5 DAYS PER WEEK PT HAS A WALKER, OXYGEN, AND A NEBULIZER, HE USES ALL OF HIS DME PRN HE SAYS HE HAS A HCP NAMING HIS , COPY REQUESTED PCP: TRINIDAD WYMAN IMM DELIVERED DCP: HOME, RESUME WAITSTAFF CAPTAIN SERVICES PT TO ARRANGE TRANSPORT
[2024-05-05] MEDS: ALPRAZolam 0.25 MG TABLET PO (15:39)
[2024-05-05] MEDS: cefTRIAXone sodium 1 GM in 0.9 % Sodium Chloride 50 ML IV (15:50)
--- NOTE | 2024-05-05 18:51 | P.DS_ITS ---
DS: Providers Provider Date of Service: 05/05/24 Date of admission: 05/04/24 19:20 Primary care physician: Declan Muller MD Consults: 05/05/24 08:39 Consult to Pulmonology Routine Consulting Provider: [facility] Pulmonology [facility] Reason for consultation: copd, pna Has provider been notified: Yes DS: Diagnosis Discharge Diagnosis (1) Chronic respiratory failure: Status: Acute DS: Summary Hospital Course Hospital Course: from initial hpi: 63-year-old male with pertinent history of chronic hypoxemic respiratory failure on 2 L baseline oxygen due to COPD, former tobacco use disorder, hypertension, o pioid use disorder on methadone, mood disorder, gastroesophageal reflux disease who presents to the emergency department for evaluation of dyspnea. Patient states his symptoms started 2 weeks ago. The symptoms progressed and he has not been feeling well over the last couple of days. Patient has been having dyspnea/worse with exertion. Also has cough with yellowish sputum production. Admits associated wheezing. He tried his home inhaler and home oxygen supplementation but no relief. Admits chills but no fever. He denies chest discomfort, palpitations, abdominal pain, changes in urinary or bowel habits. In the emergency department, patient found to be septic and imaging concerning for pneumonia. Patient requiring 3 L supplemental oxygen hospital course: patient was admitted for sepsis and acute on chronic hypoxic respiratory failure due to pneuonia and copd with acute decompensation. he was treated with steroids, nebs, azithro, and rocephin. his symptoms did improve a bit, but was still hypoxic, with cultures pending. plan was to conitnue inpatient treatment for atleast another 24 hours, however, liberty decided to leave against medical advice, he was able to demonstrate understanding the risks of doing so including . prednisone and azithro will be sent to pharmacy. for opiate dependence was continued on methadone, for hypertension bp meds were held for relative h ypotension. for mood dusorder continued on cymbalta. Time Attestation Discharge Coordination Time (in mins): 12 Quality: Safe Use of Opioids Does Pt have an Active Cancer Diagnosis on the Problem List?: No Quality: Stroke Does the patient have a stroke diagnosis?: No Physical Exam Vital Signs: Vital Signs: Last Vital Signs Temp 97.7 F 05/05/24 15:00 Pulse 102 H 05/05/24 15:00 Resp 18 05/05/24 15:00 BP 102/55 L 05/05/24 15:00 Pulse Ox 99 05/05/24 15:00 O2 Del Method Nasal Cannula 05/05/24 15:00 O2 Flow Rate 3 05/05/24 15:00 Oxygen Flow Rate 2 05/04/24 18:06 BMI result Body Mass Index 19.9 Const: General: comfortable and alert HEENT: General nose exam: Abnormal external nose present and Nasal discharge present Eyes: Pupils: Equal, round and reactive pupils present Neck: Neck: Yes normal visual inspection, Yes full ROM and Yes no lymphadenopathy Chest: Chest palpation & inspection: normal inspection of the chest Resp: Effort & Inspection: normal respiratory effort, no use of accessory muscles and prolonged expiratory phase Auscultation: no crackles, no rales, no rhonchi, no wheezes and diminished lung sounds Cardio: Rate: regular rate Rhythm: regular rhythm Heart sounds: S1 normal heart sound present and S2 normal heart sound present GI: Palpation (GI): Tenderness to palpation present (GI) in the LUQ and in the RUQ; with no rebound tenderness, no guarding and No Rebound tenderness present Auscultation: normal bowel sounds : General: Yes no CVA tenderness Back/Spine/Pelvis: Back: no CVA tenderness Skin: General skin exam: rashes and/or lesions noted Neuro: Cranial nerves: Yes Equal, round and reactive pupils present and Yes Normal hearing present Extrem: General: No no pedal edema DS: Data Data Completed and Pending Labs on day of discharge: Laboratory Results - last 24 hr 05/05/24 05/05/24 05:19 11:12 WBC 22.7 H RBC 3.97 L D Hgb 12.9 L D Hct 38.3 L D MCV 96.5 MCH 32.5 MCHC 33.7 RDW 14.5 Plt Count 199 MPV 10.2 Immature Gran % (Auto) 0.9 H Neut % (Auto) 94.8 H Lymph % (Auto) 2.1 L [place] % (Auto) 2.1 Eos % (Auto) 0.0 Baso % (Auto) 0.1 Lymph # (Auto) 0.5 L [place] # (Auto) 0.5 Eos # (Auto) 0.0 Baso # (Auto) 0.0 Abs Immat Gran (auto) 0.21 H Absolute Neuts (auto) 21.5 H Absolute Nucleated RBC 0.000 Nucleated RBC % (auto) 0.0 Smear Tech's Comments VERIFIED VBG pH 7.32 VBG pCO2 46 VBG pO2 39 VBG HCO3 24 VBG O2 Saturation 65.0 VBG Base Excess -1.7 Sodium 141 Potassium 4.6 Chloride 112 H Carbon Dioxide 23 Anion Gap 11 L BUN 27 H Creatinine 1.05 Estim Creat Clear Calc 55.9 Estimated GFR > 60 Random Glucose 140 H Calcium 8.5 D Discharge Plan Discharge Anticipated Discharge Date/Time: 05/05/24 18:48 Patient Disposition: Left Against Medical Advice Discharge Diagnosis: copd pna Referrals: Declan Muller MD [Primary Care Provider] - 1 Week Discharge Medications: New prednisone 20 mg tablet 40 mg PO DAILY Qty: 10 0RF azithromycin 500 mg tablet 500 mg PO DAILY 5 Days Qty: 5 0RF Continued Daliresp 500 mcg tablet 500 mcg PO DAILY Qty: 90 3RF arformoterol 15 mcg/2 mL solution for nebulization 2 ml inhalation BID Qty: 120 3RF budesonide 0.5 mg/2 mL suspension for nebulization 0.5 mg inhalation BID 30 Days Qty: 120 11RF albuterol sulfate 90 mcg/actuation HFA aerosol inhaler 2 puff inhalation Q4H PRN (Reason: for wheezing) Qty: 1 11RF albuterol sulfate 2.5 mg /3 mL (0.083 %) solution for nebulization 2.5 mg inhalation Q4H PRN (Reason: for wheezing) Qty: 150 0RF melatonin 5 mg tablet 5 mg PO BEDTIME Qty: 90 2RF metoprolol succinate 100 mg tablet extended release 24 hr 100 mg PO DAILY pantoprazole 40 mg tablet,delayed release (DR/EC) 40 mg PO DAILY meloxicam 15 mg tablet 15 mg PO DAILY PRN (Reason: low back pain) valacyclovir 500 mg tablet 500 mg PO BID fluocinonide 0.05 % cream 1 appl topical BID PRN (Reason: Rash) Prolia 60 mg/mL syringe 60 mg subcut [id number] Yupelri 175 mcg/3 mL solution for nebulization 175 mcg inhalation DAILY cyclobenzaprine 10 mg tablet 10 mg PO BID PRN (Reason: Muscle Spasm) docusate sodium 100 mg capsule 200 mg PO BID PRN (Reason: constipation) methadone 10 mg tablet 10 mg PO BID cetirizine 10 mg tablet 10 mg PO DAILY (DME) nebulizers [facility] See Rx Instructions .Route Rx Instructions: As directed ondansetron 4 mg tablet,disintegrating 4 mg PO Q6H PRN (Reason: nausea/vomiting) lidocaine [Lidoderm] 5 % adhesive patch,medicated 1 patch topical DAILY 30 Days Qty: 30 4RF Rx Instructions: leave on most painful area for up to 12 hrs duloxetine 30 mg capsule,delayed release(DR/EC) 30 mg PO DAILY lisinopril 40 mg tablet 40 mg PO DAILY Jardiance 10 mg tablet 10 mg PO DAILY testosterone 1.62 % (20.25 mg/1.25 gram) gel in packet 1 packet transdermal DAILY Discontinued prednisone 10 mg Tablet 40 mg PO DAILY Taper: Prednisone 40 mg daily for 3 Days and 0 Hour 30 mg daily for 3 Days and 0 Hour 20 mg daily for 3 Days and 0 Hour 10 mg daily for 3 Days and 0 Hour Rx Instructions: see taper instructions Discharge Orders: Discharge Order (Routine); Ordered 05/05/24 Ordered By: Jameson Prakash Diet: Advance to usual diet Activity on Discharge: As tolerated Stand Alone Forms: Patient Portal Discharge page Print Language: Arabic Care Plan Goals: recovery Health Concerns: copd, pna Plan of Treatment: [facility], follow up pulmonary Assessment: see above
--- NOTE | 2024-05-05 19:07 | PC.NURSE ---
Pt. asked to be discharged stataed he was having family issues, prescription sent to his pharmacy choice.
== END 2024-05-05 19:09 | disposition left against medical advice (07) | DRG 871 ==
LOC: HO.ED 17:16 → HO.EDOVER 19:25 → HO.S3 19:49
PROVIDERS: Hospitalist; Physician Assistant Medical; Admitting Provider Student in an Organized Health Care Education/Training Program; Emergency Provider Internal Medicine; PCP Internal Medicine; Visit Provider Internal Medicine
DX: A41.9 Sepsis, unspecified organism (principal); J18.9 Pneumonia, unspecified organism; J96.21 Acute and chronic respiratory failure with hypoxia; J44.0 Chronic obstructive pulmonary disease with (acute) lower respiratory infection; J44.1 Chronic obstructive pulmonary disease with (acute) exacerbation; F11.20 Opioid dependence, uncomplicated; I42.9 Cardiomyopathy, unspecified; F39 Unspecified mood [affective] disorder; K21.9 Gastro-esophageal reflux disease without esophagitis; I10 Essential (primary) hypertension; Z20.822 Contact with and (suspected) exposure to COVID-19; Z87.01 Personal history of pneumonia (recurrent); Z99.81 Dependence on supplemental oxygen; Z87.891 Personal history of nicotine dependence; Z79.899 Other long term (current) drug therapy
CPT/HCPCS: 0241U; 36415; 71046; 80048; 80076; 82803; 83605; 83735; 84484; 85025; 85610; 87040; 93005; 94640; 99285; J0456; J0696; J1650; J2919

== ENCOUNTER → 2024-05-04 12:58 | Outpatient (BNV) | payer MEDICARE, MEDICAID, SELFPAY | PROVIDERS: Admitting Provider Student in an Organized Health Care Education/Training Program; Emergency Provider Internal Medicine; PCP Internal Medicine; Visit Provider Internal Medicine Cardiovascular Disease | DX: R94.31 Abnormal electrocardiogram [ECG] [EKG] (principal) | CPT/HCPCS: 93010 ==

== ENCOUNTER → 2024-05-04 19:20 | Outpatient (BNV) | payer MEDICARE, MEDICAID, SELFPAY | PROVIDERS: Admitting Provider Student in an Organized Health Care Education/Training Program; Emergency Provider Internal Medicine; PCP Internal Medicine; Visit Provider Hospitalist | DX: J44.1 Chronic obstructive pulmonary disease with (acute) exacerbation (principal); J18.9 Pneumonia, unspecified organism; J96.11 Chronic respiratory failure with hypoxia; I42.9 Cardiomyopathy, unspecified | CPT/HCPCS: 99223 ==

== ENCOUNTER → 2024-05-04 19:20 | Outpatient (BNV) | payer MEDICARE, MEDICAID, SELFPAY | PROVIDERS: Admitting Provider Student in an Organized Health Care Education/Training Program; Emergency Provider Internal Medicine; PCP Internal Medicine; Visit Provider Student in an Organized Health Care Education/Training Program | DX: J96.11 Chronic respiratory failure with hypoxia (principal) | CPT/HCPCS: 99223; 99238 ==

== ENCOUNTER 2024-05-11 08:39 | Outpatient (REF) | payer MEDICARE, MEDICAID, SELFPAY ==
--- NOTE | ~2024-05-11 | XR_ITS ---
EXAMINATION: XR CHEST CLINICAL INFORMATION: Follow-up pneumonia. COMPARISON: Chest x-rays dating between May 04, 2024 and April 13, 2023. Chest CT dated August 01, 2022. TECHNIQUE: 2 views of the chest were obtained. FINDINGS: The airspace opacity in the lingula or left lower lobe described on chest x-ray from May 04, 2024 has been present on all prior imaging including chest CT from August 01, 2022, and does not appear significantly changed. No acute infiltrate identified. Chain sutures project over the right costophrenic angle. Upper lung field lucency and hyperinflation is consistent with emphysema. Approximately 2 cm basilar Heart appears normal in size. Uncoiled aorta consistent with hypertension. Nodular density appears similar dating back more than one year. No change in multiple thoracic spinal compression deformities compared with April 13, 2023. No change in multiple, healed, bilateral rib fracture deformities. XR/XR chest 2V IMPRESSION: No acute finding.
[2024-05-11 09:11] LABS: MANUAL DIFF FLAG NO
[2024-05-11 09:17] LABS: VBG Base Excess 1.5 mmol/L; VBG HCO3 28 mmol/L (22-26); VBG pCO2 50 mmHg; VBG pH 7.35 (7.32-7.43); VBG pO2 38 mmHg; Venous Blood Gas Refer to POC result
[2024-05-11 09:23] LABS: Basophils Percent Auto 0.2 % (0-2); Eosinophils Absolute Auto 0.1 X10*3/uL (0.0-0.4); Eosinophils Percent Auto 0.7 % (0-4); Hematocrit 48.7 % (42.0-52.0); Hemoglobin 16.4 g/dl (14.0-18.0); Imm Gran Pct Auto 0.7 % (0.0-0.4); Lymphocytes Absolute Auto 2.3 X10*3/uL (1.2-4.9); Lymphocytes Percent Auto 15.7 % (20-40); Mean Corpuscular HGB Conc 33.7 g/dl (31.0-36.0); Mean Corpuscular Hemoglobin 32.3 pg (27.0-33.0); Mean Corpuscular Volume 95.9 fL (80.0-98.0); Mean Platelet Volume 9.4 fL (9.4-12.4); Monocytes Absolute Auto 0.8 X10*3/uL (0.1-1.2); Monocytes Percent Auto 5.4 % (2-11); Neutrophils Absolute Auto 11.4 x10*3/uL (2.0-8.3); Neutrophils Percent Auto 77.3 % (45-73); Platelet Count 358 X10*3/uL (160-400); Red Blood Count 5.08 X10*6/uL (4.60-5.80); Red Cell Distribution Width 14.6 % (11.0-16.0); White Blood Count 14.7 X10*3/uL (4.8-10.8)
[2024-05-11 09:37] LABS: Anion Gap 12 (12-20); Blood Urea Nitrogen 31 mg/dL (9-16); Calcium 9.6 mg/dL (8.4-10.2); Carbon Dioxide 28 mmol/L (22-29); Chloride 104 mmol/L (96-108); Estimated Glomerular Filt Rate 54; Glucose Random 102 mg/dL (60-115); Potassium 4.9 mmol/L (3.3-5.1); Sodium 139 mmol/L (135-145)
[2024-05-11 10:36] LABS: Erythrocyte Sedimentation Rate 3 MM/HR (0-15)
[2024-05-12 19:12] LABS: IgA 93 mg/dL (70-320); IgG 1425 mg/dL (600-1540); IgM 20 mg/dL (50-300)
== END 2024-05-11 08:40 | disposition home or self-care (01) ==
LOC: HO.XRAY 08:39
PROVIDERS: PCP Internal Medicine; Visit Provider Hospitalist
DX: J18.0 Bronchopneumonia, unspecified organism (principal)
CPT/HCPCS: 36415; 71046; 80048; 82784; 82803; 85025; 85652

== ENCOUNTER 2024-07-07 09:56 | Outpatient (AMB) | payer MEDICARE, MEDICAID, SELFPAY ==
[2024-07-07 09:58] VITALS: BP 128/60; PULSE 64; O2SAT 96; BMI 18.5
--- NOTE | 2024-07-07 09:58 | A.OFFVIS_ITS ---
Vital Signs 07/07/24 09:58 Height 5 ft 5 in Weight 111 lb 5.335 oz BMI 18.5 BP 128/60 Blood Pressure Location Lt brachial Position Sitting Pulse 64 Pulse Source Pulse Oximeter Pulse Oximetry (%) 96 Oxygen Delivery Method Room Air Intake Visit Reasons: Bronchitis/Hosp Follow Up Allergies ciprofloxacin [From Cipro] Allergy (Severe, Verified 07/07/24 10:12) Redness on Face levofloxacin [From Levaquin] Allergy (Severe, Verified 07/07/24 10:12) Swelling in the Joints hydromorphone [From Dilaudid] Adverse Reaction (Intermediate, Verified 07/07/24 10:12) Anxiety HPI Comments Details: The patient is a 64-year-old man with a known history of asthma COPD overlap syndrome. Patient states that he had been sick with his respiratory issues for the last 10 years. He was initially diagnosed with pneumonia. He has had bronchoscopies and also apparently a biopsy in the past. I cannot find the results at [facility]. He has also gone to [place] for further evaluation. He has been on oxygen for his respiratory failure. Currently using inogen. He has had multiple hospitalizations usually add [facility]. He also goes to [facility]. He has had multiple CT scans done for his pulmonary nodules. His last CT scan was done at [facility]. He has been on nebulized therapy as the inhalers have not been effective for him. He recently finished a prednisone taper. He states that his breathing has been a little bit more labored. Moderate severity. The weather has not helped either. He states that he quit smoking many years ago. 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 We did review a CT scan of the chest from 2015 from [facility] demonstrating areas of attenuation, ground-glass opacities along with moderate emphysema. He was asking about the xypher valves and see if he was a candidate for them. 12/23/2022 The patient is here for a hospital follow up visit. He was admitted to [facility] with acute on chronic hypoxic and hypercarbic respiratory failure. He was noted to have CM with acute CHF, EF 15%. Cardiac meds adjusted. PLaced on diuresis. Required BIPAP, although has a hard time tolerating the BIPAP. We did talk about the improtance of non invasive ventilator if he has any evicence of hypercarbia. He was taken off the prednisone and he has been doing ok and he was also taken off the theophylline. HE was placed on digoxin and Entresto, but did not tolerate the entrsto and was changed to an PATRICIA inhibitor which he is tolerating better. He was also treated got a GI infection. We are requesting the discharge summary at this time. 01/08/2023 the patient is here for pulmonary follow-up visit. He continues to have increased work of breathing. He has a maximal respiratory therapy. Had to come off the theophylline because of his other comorbidities. Is based on the very severe COPD and chronic respiratory failure along with his recent admission with hypercarbic respiratory failure to the hospital will start the patient on noninvasive ventilator. The noninvasive ventilator will help him with improving his gas exchange, improved his prognosis and decrease hospitalizations. 03/17/2023 the patient is here for pulmonary follow-up visit. The patient is feeling a lot better. He is working closely with his cardiac status. He is improving and therefore his respiratory status is improving as well. He feels a lot stronger. He is going to have a repeat echocardiogram and may indeed need a defibrillator if his EF continues to be low. In the meantime the patient did get a noninvasive ventilator. Unfortunately tried multiple masks and cannot sleep with it he tried using it during the daytime he did not tolerated. At this point the patient does not want her continue using it. I did recommend he call the [facility] in order for them to pick it up since he is not using it. We will reassess in the future depending on his CO2 if it starts going up at that time if that is the case we will look into restarting noninvasive therapy. Regards pulmonary nodules he is due for CT scan in July. In addition to all this he is trying to wean off the opiates specially because he has had multiple complications because of the opiates including constipation. Will go ahead and refer him to the [facility] in order for him to look for alternative therapies in view of his severe chronic back and neck pain. This will help his respiratory status as well. 08/11/2023 the patient is here for pulmonary follow-up visit. He was recently seen for a COPD exacerbation. He was evaluated back the end of July he was placed on Vantin and also prednisone he did not take prednisone. The is still coughing although the cough is better less productive is still not gain. Moderate severity. The patient did have a chest x-ray without any acute disease at that time. He continues with respiratory therapy. His cardiac status is stable. He has a hard time expectorating. He does have a flutter valve. I did encourage him for him to use it. The patient will go ahead and start Bactrim. If he still having a productive cough I did provide him with sputum cup in order for him to provide. 11/13/2023 the patient is here for a pulmonary follow-up visit. He is finally feeling better. Overall in a much better health state. He has been continue to use his cardioprotective medications and seems to be feeling better from the standpoint. He did recently have an echocardiogram he does not know the results. I am hopeful that his EF has gotten better. In addition to that he has no longer taking prednisone or antibiotics. He is regimen is back to his baseline. His breathing is well. He is using his oxygen with good effect. He continues his IVIG infusions every 4 weeks. The patient does have severe COPD based on his PFTs that he had back in July 2022. Now he has in a good place to start pulmonary rehabilitation. Therefore since it is close to [facility] will send a referral there. He can start rehab and close monitoring specially with underlying cardiac and pulmonary disease. After that he probably can do it on his own. 03/23/2024 the patient is here for a pulmonary follow-up visit. Overall the patient is doing a lot better. He has been stronger from the heart standpoint w hich is reassuring. He received respiratory medicines are also helping. He has been able to be off the oxygen which those were reassuring. Has multiple surgeries however that are pending. He is having hand surgery and also needs dental surgery and back surgery. Will go ahead and repeat his pulmonary function studies to assess his capacity. His last PFTs very significant for a very severe obstruction. Therefore he ended needs to understand that he is high risk for perioperative pulmonary complications. Therefore all the non invasive alternative options need to be looked into to see if surgery and anesthesia can be avoided altogether. Is surgery seeing only option then the patient is indeed medically optimized to undergo surgery. Will go ahead and repeat his PFTs. The patient is also having some slight discomfort right below the ribcage on the left. Pleuritic in nature. Likely musculoskeletal. I will have him get an x- ray. Also reproducible therefore could be musculoskeletal. The patient does not have any rash. He did get vaccinated for shingles. He will have an x-ray and if he has not getting better in the next several weeks he can always call so we can readdress it. 07/07/2024 the patient is here for a pulmonary follow-up visit. Overall he is doing well. He is staying active. His respiratory status are pretty much baseline. He is using the oxygen with activity with good effect. The patient also has been using all his nebulized therapy. He did require antibiotics several months ago. He did recover fully which is reassuring. He is starting to develop a respiratory illness at this time. Will make sure that he has proper medications available to start therapy if he worsens. He tends to worsen quickly. In the meantime he needs to undergo pulmonary function studies. We had had to cancel him because of lack of availability. But now which should be able to schedule them at this time. Therefore he will continue with current respiratory therapy will follow-up in 3 months after his PFTs. If he develops any worsening issues prior to that he will call for an earlier assessment. [facility] Medical History (Updated 05/13/24 @ 00:02 by Eduard Vasquez) Chronic respiratory failure Pleuritic chest pain Pre-op chest exam Chondrocalcinosis Chronic neck and back pain Asthma Asthma-COPD overlap syndrome Asthma FH: bowel obstruction Bronchitis Pulmonary nodules Back pain Dyspnea COPD (chronic obstructive pulmonary disease) Surgical History Hx of colonoscopy History of esophagogastroduodenoscopy (EGD) History of partial colectomy History of hernia repair History of lung biopsy Family History Mother History of lung cancer Social History Household Members: Spouse and Children Housing: House Do you presently have visiting nurse or other home services: No Alcohol intake: former Patient Tobacco Use Status: Former Tobacco user Tobacco use type: Cigarette Years Smoked: 15 years Second Hand Smoke Exposure: No Substance Use Type: Caffiene service: No Current occupational status: disabled Review of Systems Const Denies fatigue, Denies fever(s), Denies headache(s), Denies night sweats and Denies poor appetite ENT Reports Normal hearing present, Denies change in voice, Denies headache(s), Denies lip swelling, Denies mouth pain, Reports nasal congestion, Reports nasal discharge, Reports neck pain and Denies tongue swelling Card Reports chest pain, Denies dyspnea and Reports dyspnea on exertion Resp Denies change in phlegm color, Denies chest congestion, Reports cough, Denies hemoptysis, Denies excessive phlegm production, Denies pain on inspiration, Denies dyspnea, Reports dyspnea on exertion and Reports wheezing GI Denies abdominal pain Musc Denies no additional complaints, Reports back pain and Reports neck pain Neuro Reports Normal hearing present, Denies Neuro-related abnormal movements and Denies headache(s) Psych Denies no additional complaints Endo Denies fatigue Marcel/Lymph Denies easy bleeding and Denies lymphadenopathy Aller/Immun Denies lip swelling, Denies tongue swelling and Reports wheezing Physical Exam Vital Signs: Last Vital Signs Pulse 64 07/07/24 09:58 BP 128/60 07/07/24 09:58 Pulse Ox 96 07/07/24 09:58 Oxygen Delivery Method Room Air 07/07/24 09:58 BMI result Body Mass Index 18.5 Last Vital Signs Temp 97.1 F 05/05/24 07:30 Pulse 95 05/05/24 09:00 Resp 20 05/05/24 07:43 BP 103/58 L 05/05/24 09:00 Pulse Ox 98 05/05/24 07:30 O2 Del Method Nasal Cannula 05/05/24 07:30 O2 Flow Rate 3 05/05/24 07:30 Oxygen Flow Rate 2 05/04/24 18:06 BMI result Body Mass Index 19.9 Const General: comfortable and alert HEENT General nose exam: Abnormal external nose present and Nasal discharge present Eyes Pupils: Equal, round and reactive pupils present Neck Neck: Yes normal visual inspection, Yes full ROM and Yes no lymphadenopathy Chest Chest palpation & inspection: normal inspection of the chest Resp Effort & Inspection: normal respiratory effort, no use of accessory muscles and prolonged expiratory phase Auscultation: no crackles, no rales, no rhonchi, no wheezes and diminished lung sounds Cardio Rate: regular rate Rhythm: regular rhythm Heart sounds: S1 normal heart sound present and S2 normal heart sound present GI Palpation (GI): Tenderness to palpation present (GI) in the LUQ and in the RUQ; with no rebound tenderness, no guarding and No Rebound tenderness present Auscultation: normal bowel sounds General: Yes no CVA tenderness Back/Spine/Pelvis Back: no CVA tenderness Skin General skin exam: rashes and/or lesions noted Neuro Cranial nerves: Yes Equal, round and reactive pupils present and Yes Normal hearing present Extrem General: No no pedal edema Assessment & Plan Assessment & Plan (1) COPD (chronic obstructive pulmonary disease): Comment: very severe Code(s): J44.9 - Chronic obstructive pulmonary disease, unspecified Category: Medical Qualifiers: COPD type: emphysema Emphysema type: centrilobular Qualified Code(s): J43.2 - Centrilobular emphysema (2) Dyspnea: Code(s): R06.00 - Dyspnea, unspecified Category: Medical Qualifiers: Dyspnea type: dyspnea on exertion Qualified Code(s): R06.00 - Dyspnea, unspecified (3) Pulmonary nodules: Code(s): R91.8 - Other nonspecific abnormal finding of lung field Category: Medical (4) Cardiomyopathy: Code(s): I42.9 - Cardiomyopathy, unspecified Category: Medical Qualifiers: Cardiomyopathy type: unspecified Qualified Code(s): I42.9 - Cardiomyopathy, unspecified Plan diuresis as tolerated Continue respiratory therapy: Adeline Wing Yulperi SABA as needed continue oxygen 2 L with activity. He does use a POC for portability outside of the home (Reflex) CPT with Acapella valve. PFTs follow-up in 3-4 months Medications: New cefpodoxime must administer with a meal/food 200 mg PO BID 20 tabs 0RF prednisone PO daily; Take 6 tabs daily x 3 days, then 5 tabs x 3 days, then 4 tabs x 3 days, then 3 tabs x 3 days, then 2 tabs daily x 3 days, then 1 tab x 3 days to complete. 63 tabs 0RF 18 days Refilled albuterol sulfate 90 mcg/actuation 2 puffs inhalation Q4H PRN 1 ea 11RF for wheezing Coding Level of Care Code Est Pt Level 4 (49233) Complex EM visit Add On G2211 Diagnoses Centrilobular emphysema J43.2 COPD type: emphysema Emphysema type: centrilobular Dyspnea on exertion R06.00 Dyspnea type: dyspnea on exertion Pulmonary nodules R91.8 Cardiomyopathy, unspecified type I42.9 Cardiomyopathy type: unspecified Time Spent (min) 18
== END 2024-07-07 10:31 | disposition home or self-care (01) ==
PROVIDERS: PCP Internal Medicine; Visit Provider Hospitalist
DX: J43.2 Centrilobular emphysema (principal); R06.00 Dyspnea, unspecified; R91.8 Other nonspecific abnormal finding of lung field; I42.9 Cardiomyopathy, unspecified
CPT/HCPCS: 99214; G2211

== ENCOUNTER → 2024-07-07 09:56 | Outpatient (BNVA) | payer MEDICARE, MEDICAID, SELFPAY | PROVIDERS: PCP Internal Medicine; Visit Provider Hospitalist | DX: J43.2 Centrilobular emphysema (principal); R06.00 Dyspnea, unspecified; R91.8 Other nonspecific abnormal finding of lung field; I42.9 Cardiomyopathy, unspecified | CPT/HCPCS: 99212 ==

== ENCOUNTER 2024-07-28 08:37 | Outpatient (REF) | payer MEDICARE, MEDICAID, SELFPAY ==
--- NOTE | ~2024-07-28 | XR_ITS ---
EXAMINATION: XR CHEST 2 VIEWS CLINICAL INFORMATION: Chronic obstructive pulmonary disease with (acute) exacerbation J44.1. Cough, history of COVID 2 weeks ago. COMPARISON: XR Chest 05/11/2024 TECHNIQUE: 2 views of the chest were obtained. FINDINGS: Cardiac silhouette is normal in size. The lungs are hyperinflated. Chronic diffuse coarsening of the interstitial markings consistent with emphysema. No lobar consolidation. No gross pleural effusion. Surgical changes of the lateral right lung base. No pneumothorax. Compression deformities of the thoracic spine again demonstrated. Old left-sided rib fractures. XR/XR chest 2V IMPRESSION: Emphysematous changes of the lungs without lobar consolidation. Electronically signed by: Sheldon Ferraro MD 10/04/2024 11:35 AM ANIL
== END 2024-07-28 08:38 | disposition home or self-care (01) ==
LOC: HO.XRAY 08:37
PROVIDERS: PCP Internal Medicine; Visit Provider Hospitalist
DX: J44.1 Chronic obstructive pulmonary disease with (acute) exacerbation (principal)
CPT/HCPCS: 71046

== ENCOUNTER 2024-08-09 11:30 | Outpatient (REF) | payer MEDICARE, MEDICAID, SELFPAY | END 2024-08-09 11:31 | disposition home or self-care (01) | LOC: HO.XRAY 11:30 | PROVIDERS: PCP Internal Medicine; Visit Provider Hospitalist | DX: J18.0 Bronchopneumonia, unspecified organism (principal) | CPT/HCPCS: 71046 ==

== ENCOUNTER 2024-08-24 10:53 | Outpatient (AMB) | payer MEDICARE, MEDICAID, SELFPAY ==
[2024-08-24 10:55] VITALS: BP 140/80; PULSE 71; O2SAT 97
--- NOTE | 2024-08-24 10:55 | MHC.OFFVIS ---
Vital Signs 08/24/24 10:55 Weight 116 lb 13.52 oz BP 140/80 H Blood Pressure Location Rt brachial Position Sitting Pulse 71 Pulse Source Pulse Oximeter Pulse Oximetry (%) 97 Oxygen Delivery Method Room Air Intake Visit Reasons: dyspnea Allergies ciprofloxacin [From Cipro] Allergy (Severe, Verified 08/24/24 11:02) Redness on Face levofloxacin [From Levaquin] Allergy (Severe, Verified 08/24/24 11:02) Swelling in the Joints hydromorphone [From Dilaudid] Adverse Reaction (Intermediate, Verified 08/24/24 11:02) Anxiety Medication List - Last Reconciled 08/24/24 by Liliana Shine LPN albuterol sulfate 90 mcg/actuation 2 puffs inhalation Q4H PRN albuterol sulfate 2.5 mg (3 mL) inhalation Q4H PRN arformoterol 2 mL inhalation BID budesonide 0.5 mg (2 mL) inhalation BID 30 days cetirizine 10 mg PO DAILY cyclobenzaprine 10 mg PO BID PRN denosumab (Prolia) 60 mg subcut [id number] docusate sodium 200 mg PO BID PRN duloxetine 30 mg PO DAILY empagliflozin (Jardiance) 10 mg PO DAILY fluocinonide 0.05% 1 appl topical BID PRN lidocaine 5% (Lidoderm) 1 patch topical DAILY 30 days melatonin 5 mg PO BEDTIME meloxicam 15 mg PO DAILY PRN methadone 10 mg PO BID metoprolol succinate ER 100 mg PO DAILY nebulizers As directed ondansetron 4 mg PO Q6H PRN pantoprazole 40 mg PO DAILY revefenacin (Yupelri) 175 mcg inhalation DAILY roflumilast 500 mcg PO DAILY testosterone 1 packet transdermal DAILY theophylline ER 200 mg PO Q12H 30 days valacyclovir 500 mg PO BID HPI Comments Details: The patient is a 64-year-old man with a known history of asthma COPD overlap syndrome. Patient states that he had been sick with his respiratory issues for the last 10 years. He was initially diagnosed with pneumonia. He has had bronchoscopies and also apparently a biopsy in the past. I cannot find the results at [facility]. He has also gone to [place] for further evaluation. He has been on oxygen for his respiratory failure. Currently using inogen. He has had multiple hospitalizations usually add [facility] [place]. He also goes to [facility]. He has had multiple CT scans done for his pulmonary nodules. His last CT scan was done at [facility]. He has been on nebulized therapy as the inhalers have not been effective for him. He recently finished a prednisone taper. He states that his breathing has been a little bit more labored. Moderate severity. The weather has not helped either. He states that he quit smoking many years ago. 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 We did review a CT scan of the chest from 2016 from [facility] demonstrating areas of attenuation, ground-glass opacities along with moderate emphysema. He was asking about the xypher valves and see if he was a candidate for them. 12/23/2022 The patient is here for a hospital follow up visit. He was admitted to [facility] with acute on chronic hypoxic and hypercarbic respiratory failure. He was noted to have CM with acute CHF, EF 15%. Cardiac meds adjusted. PLaced on diuresis. Required BIPAP, although has a hard time tolerating the BIPAP. We did talk about the improtance of non invasive ventilator if he has any evicence of hypercarbia. He was taken off the prednisone and he has been doing ok and he was also taken off the theophylline. HE was placed on digoxin and Entresto, but did not tolerate the entrsto and was changed to an PATRICIA inhibitor which he is tolerating better. He was also treated got a GI infection. We are requesting the discharge summary at this time. 01/08/2023 the patient is here for pulmonary follow-up visit. He continues to have increased work of breathing. He has a maximal respiratory therapy. Had to come off the theophylline because of his other comorbidities. Is based on the very severe COPD and chronic respiratory failure along with his recent admission with hypercarbic respiratory failure to the hospital will start the patient on noninvasive ventilator. The noninvasive ventilator will help him with improving his gas exchange, improved his prognosis and decrease hospitalizations. 03/17/2023 the patient is here for pulmonary follow-up visit. The patient is feeling a lot better. He is working closely with his cardiac status. He is improving and therefore his respiratory status is improving as well. He feels a lot stronger. He is going to have a repeat echocardiogram and may indeed need a defibrillator if his EF continues to be low. In the meantime the patient did get a noninvasive ventilator. Unfortunately tried multiple masks and cannot sleep with it he tried using it during the daytime he did not tolerated. At this point the patient does not want her continue using it. I did recommend he call the [employer] company in order for them to pick it up since he is not using it. We will reassess in the future depending on his CO2 if it starts going up at that time if that is the case we will look into restarting noninvasive therapy. Regards pulmonary nodules he is due for CT scan in July. In addition to all this he is trying to wean off the opiates specially because he has had multiple complications because of the opiates including constipation. Will go ahead and refer him to the [facility] in order for him to look for alternative therapies in view of his severe chronic back and neck pain. This will help his respiratory status as well. 08/11/2023 the patient is here for pulmonary follow-up visit. He was recently seen for a COPD exacerbation. He was evaluated back the end of July he was placed on Vantin and also prednisone he did not take prednisone. The is still coughing although the cough is better less productive is still not gain. Moderate severity. The patient did have a chest x-ray without any acute disease at that time. He continues with respiratory therapy. His cardiac status is stable. He has a hard time expectorating. He does have a flutter valve. I did encourage him for him to use it. The patient will go ahead and start Bactrim. If he still having a productive cough I did provide him with sputum cup in order for him to provide. 11/13/2023 the patient is here for a pulmonary follow-up visit. He is finally feeling better. Overall in a much better health state. He has been continue to use his cardioprotective medications and seems to be feeling better from the standpoint. He did recently have an echocardiogram he does not know the results. I am hopeful that his EF has gotten better. In addition to that he has no longer taking prednisone or antibiotics. He is regimen is back to his baseline. His breathing is well. He is using his oxygen with good effect. He continues his IVIG infusions every 4 weeks. The patient does have severe COPD based on his PFTs that he had back in July 2022. Now he has in a good place to start pulmonary rehabilitation. Therefore since it is close to [facility] will send a referral there. He can start rehab and close monitoring specially with underlying cardiac and pulmonary disease. After that he probably can do it on his own. 03/23/2024 the patient is here for a pulmonary follow-up visit. Overall the patient is doing a lot better. He has been stronger from the heart standpoint which is reassuring. He received respiratory medicines are also helping. He has been able to be off the oxygen which those were reassuring. Has multiple surgeries however that are pending. He is having hand surgery and also needs dental surgery and back surgery. Will go ahead and repeat his pulmonary function studies to assess his capacity. His last PFTs very significant for a very severe obstruction. Therefore he ended needs to understand that he is high risk for perioperative pulmonary complications. Therefore all the non invasive alternative options need to be looked into to see if surgery and anesthesia can be avoided altogether. Is surgery seeing only option then the patient is indeed medically optimized to undergo surgery. Will go ahead and repeat his PFTs. The patient is also having some slight discomfort right below the ribcage on the left. Pleuritic in nature. Likely musculoskeletal. I will have him get an x-ray. Also reproducible therefore could be musculoskeletal. The patient does not have any rash. He did get vaccinated for shingles. He will have an x-ray and if he has not getting better in the next several weeks he can always call so we can readdress it. 07/07/2024 the patient is here for a pulmonary follow-up visit. Overall he is doing well. He is staying active. His respiratory status are pretty much baseline. He is using the oxygen with activity with good effect. The patient also has been using all his nebulized therapy. He did require antibiotics several months ago. He did recover fully which is reassuring. He is starting to develop a respiratory illness at this time. Will make sure that he has proper medications available to start therapy if he worsens. He tends to worsen quickly. In the meantime he needs to undergo pulmonary function studies. We had had to cancel him because of lack of availability. But now which should be able to schedule them at this time. Therefore he will continue with current respiratory therapy will follow-up in 3 months after his PFTs. If he develops any worsening issues prior to that he will call for an earlier assessment. 08/24/2024 the patient is here for a pulmonary follow-up visit. Since we last spoke he was diagnosed with pneumonia. He had a CT scan a [facility]. Demonstrated basilar consolidations. In addition to that x-rays demonstrating the same. Left more than right. The patient did have a repeat chest x-ray here [place] about a week ago. I did review. Has not been officially read but I can not appreciate any airspace disease. The appears to be better this time. This is all reassuring. He did complete the antibiotics and he is completing course of prednisone. He did recently start the theophylline. We start him on low-dose. He is going to monitor closely for any cardiac adverse effects especially with his cardiac history. But at this point the patient does have advanced pulmonary disease will trying to provide him with optimize care. If however he can not tolerate theophylline he can stop it. Other options include other alternative respiratory medications that have become available. We also talked about Dupixent. Will go ahead and recheck his eosinophils to see if he is a candidate for that. in addition to that we did talk about lung volume reduction intervention. May be a good candidate for this. I will have him look into it to learn about it a little bit more. He continues to exercise regularly. will also have him get blood work including a blood gas. If his CO2 is elevated will going to talk about a noninvasive ventilator that would also help him with his advanced respiratory failure. The patient will follow-up in a couple months. He is scheduled to have PFTs soon. [facility] Medical History (Updated 05/13/24 @ 00:02 by Eduard Vasquez) Chronic respiratory failure Pleuritic chest pain Pre-op chest exam Chondrocalcinosis Chronic neck and back pain Asthma Asthma-COPD overlap syndrome Asthma FH: bowel obstruction Bronchitis Pulmonary nodules Back pain Dyspnea COPD (chronic obstructive pulmonary disease) Surgical History Hx of colonoscopy History of esophagogastroduodenoscopy (EGD) History of partial colectomy History of hernia repair History of lung biopsy Family History Mother History of lung cancer Social History Household Members: Spouse and Children Housing: House Do you presently have visiting nurse or other home services: No Alcohol intake: former Patient Tobacco Use Status: Former Tobacco user Tobacco use type: Cigarette Years Smoked: 15 years Second Hand Smoke Exposure: No Substance Use Type: Caffiene service: No Current occupational status: disabled Review of Systems Const Denies fatigue, Denies fever(s), Denies headache(s), Denies night sweats and Denies poor appetite ENT Reports Normal hearing present, Denies change in voice, Denies headache(s), Denies lip swelling, Denies mouth pain, Reports nasal congestion, Reports nasal discharge, Reports neck pain and Denies tongue swelling Card Reports chest pain, Denies dyspnea and Reports dyspnea on exertion Resp Denies change in phlegm color, Denies chest congestion, Reports cough, Denies hemoptysis, Denies excessive phlegm production, Denies pain on inspiration, Denies dyspnea, Reports dyspnea on exertion and Reports wheezing GI Denies abdominal pain Musc Denies no additional complaints, Reports back pain and Reports neck pain Neuro Reports Normal hearing present, Denies Neuro-related abnormal movements and Denies headache(s) Psych Denies no additional complaints Endo Denies fatigue Marcel/Lymph Denies easy bleeding and Denies lymphadenopathy Aller/Immun Denies lip swelling, Denies tongue swelling and Reports wheezing Physical Exam Vital Signs: Last Vital Signs Pulse 71 08/24/24 10:55 BP 140/80 H 08/24/24 10:55 Pulse Ox 97 08/24/24 10:55 Oxygen Delivery Method Room Air 08/24/24 10:55 Last Vital Signs Temp 97.1 F 05/05/24 07:30 Pulse 95 05/05/24 09:00 Resp 20 05/05/24 07:43 BP 103/58 L 05/05/24 09:00 Pulse Ox 98 05/05/24 07:30 O2 Del Method Nasal Cannula 05/05/24 07:30 O2 Flow Rate 3 05/05/24 07:30 Oxygen Flow Rate 2 05/04/24 18:06 BMI result Body Mass Index 19.9 Const General: comfortable and alert HEENT General nose exam: Abnormal external nose present and Nasal discharge present Eyes Pupils: Equal, round and reactive pupils present Neck Neck: Yes normal visual inspection, Yes full ROM and Yes no lymphadenopathy Chest Chest palpation & inspection: normal inspection of the chest Resp Effort & Inspection: normal respiratory effort, no use of accessory muscles and prolonged expiratory phase Auscultation: no crackles, no rales, no rhonchi, no wheezes and diminished lung sounds Cardio Rate: regular rate Rhythm: regular rhythm Heart sounds: S1 normal heart sound present and S2 normal heart sound present GI Palpation (GI): Tenderness to palpation present (GI) in the LUQ and in the RUQ; with no rebound tenderness, no guarding and No Rebound tenderness present Auscultation: normal bowel sounds General: Yes no CVA tenderness Back/Spine/Pelvis Back: no CVA tenderness Skin General skin exam: rashes and/or lesions noted Neuro Cranial nerves: Yes Equal, round and reactive pupils present and Yes Normal hearing present Extrem General: No no pedal edema Results Reviewed Results Reviewed: personally reviewed CR with hyperinflation, no airspace disease Assessment & Plan Assessment & Plan (1) COPD (chronic obstructive pulmonary disease): Comment: very severe Code(s): J44.9 - Chronic obstructive pulmonary disease, unspecified Category: Medical Qualifiers: COPD type: emphysema Emphysema type: centrilobular Qualified Code(s): J43.2 - Centrilobular emphysema (2) Dyspnea: Code(s): R06.00 - Dyspnea, unspecified Category: Medical Qualifiers: Dyspnea type: dyspnea on exertion Qualified Code(s): R06.00 - Dyspnea, unspecified (3) Pulmonary nodules: Code(s): R91.8 - Other nonspecific abnormal finding of lung field Category: Medical (4) Cardiomyopathy: Code(s): I42.9 - Cardiomyopathy, unspecified Category: Medical Qualifiers: Cardiomyopathy type: unspecified Qualified Code(s): I42.9 - Cardiomyopathy, unspecified (5) Chronic respiratory failure: Code(s): J96.10 - Chronic respiratory failure, unspecified whether with hypoxia or hypercapnia Category: Medical Qualifiers: Respiratory failure complication: hypoxia Qualified Code(s): J96.11 - Chronic respiratory failure with hypoxia (6) Bronchopneumonia: Code(s): J18.0 - Bronchopneumonia, unspecified organism Category: Medical Plan diuresis as tolerated Continue respiratory therapy: Daliresp, Brovana, Yulperi consider Ohtuvayre nebs consider Dupixent, need to check eosinophils Bloodgas, if PCO2 is elevated will benefit from NIV. He does have a poor prognosis and high risk for hospitalization. A non invasive ventilator would improve his prognosis, decrease hospitalizations and improve his gas exchange RAFAELA as needed continue oxygen 2 L with activity. He does use a POC for portability outside of the home (Inogen) CPT with Acapella valve. Theophylline low dose consider Lung volume reduction interventions PFTs follow-up in 2 months Orders: Orders Venous Blood Gas Today J43.2 - Centrilobular emphysema, J96.11 - Chronic respiratory failure with hypoxia Immunoglobulins,IgG IgA IgM Today J43.2 - Centrilobular emphysema, J96.11 - Chronic respiratory failure with hypoxia Complete Blood Count Auto Diff Today J43.2 - Centrilobular emphysema, J96.11 - Chronic respiratory failure with hypoxia Basic Metabolic Panel Today J43.2 - Centrilobular emphysema, J96.11 - Chronic respiratory failure with hypoxia Erythrocyte Sedimentation Rate Today J43.2 - Centrilobular emphysema, J96.11 - Chronic respiratory failure with hypoxia Coding Level of Care Code Est Pt Level 5 (58965) Complex EM visit Add On G2211 Diagnoses Centrilobular emphysema J43.2 COPD type: emphysema Emphysema type: centrilobular Dyspnea on exertion R06.00 Dyspnea type: dyspnea on exertion Pulmonary nodules R91.8 Cardiomyopathy, unspecified type I42.9 Cardiomyopathy type: unspecified Chronic respiratory failure with hypoxia J96.11 Respiratory failure complication: hypoxia Bronchopneumonia J18.0 Time Spent (min) 35
== END 2024-08-24 11:33 | disposition home or self-care (01) ==
LOC: HO.HPS 10:54
PROVIDERS: PCP Internal Medicine; Visit Provider Hospitalist
DX: J43.2 Centrilobular emphysema (principal); R91.8 Other nonspecific abnormal finding of lung field; I42.9 Cardiomyopathy, unspecified; J96.11 Chronic respiratory failure with hypoxia; J18.0 Bronchopneumonia, unspecified organism
CPT/HCPCS: 99214; G2211

== ENCOUNTER 2024-08-24 10:53 | Outpatient (REF) | payer MEDICARE, MEDICAID, SELFPAY | END 2024-08-24 10:54 | disposition home or self-care (01) | LOC: HO.LAB 10:53 | PROVIDERS: PCP Internal Medicine; Visit Provider Hospitalist | DX: J43.2 Centrilobular emphysema (principal); R06.00 Dyspnea, unspecified; R91.8 Other nonspecific abnormal finding of lung field; I42.9 Cardiomyopathy, unspecified; J96.11 Chronic respiratory failure with hypoxia; J18.0 Bronchopneumonia, unspecified organism; Z79.899 Other long term (current) drug therapy | CPT/HCPCS: 99212 ==

== ENCOUNTER 2024-10-01 10:21 | Outpatient (REF) | payer MEDICARE, MEDICAID, SELFPAY ==
[2024-10-01 10:01] VITALS: PULSE 83; O2SAT 87
--- NOTE | 2024-10-01 11:30 | PFT_ITS ---
Indication: COPD Spirometry [FEV1 to FVC 32%; FEV1 0.88 L; FVC 2.79 L. There was a significant response to bronchodilators noted. Maximum voluntary ventilation 26% predicted] Lung Volumes [Total lung capacity 88% predicted; residual volume 148% predicted] Diffusion Capacity [DLCO 46% predicted] Comparisons [Not available at this time] Interpretation [There is an obstructive ventilatory defect consistent with very severe COPD. Significant response to bronchodilators noted. Severe decrease in the maximum voluntary ventilation secondary to the condition and also worsening dynamic inspiratory capacity. Lung volumes with significant air trapping due to the COPD. The patient does have a moderate diffusion impairment. Clinical correlation warranted.] MTDD
== END 2024-10-01 10:22 | disposition home or self-care (01) ==
LOC: HO.RESP 10:21
PROVIDERS: PCP Internal Medicine; Visit Provider Hospitalist
DX: J43.2 Centrilobular emphysema (principal); J44.9 Chronic obstructive pulmonary disease, unspecified
CPT/HCPCS: 94010; 94640; 94727; 94729

== ENCOUNTER 2024-10-06 09:34 | Outpatient (AMB) | payer MEDICARE, MEDICAID, SELFPAY ==
--- NOTE | 2024-10-06 09:34 | A.OFFVIS_ITS ---
Intake Visit Reasons: Dyspnea/PFT Follow Up Allergies ciprofloxacin [From Cipro] Allergy (Severe, Verified 10/06/24 09:34) Redness on Face levofloxacin [From Levaquin] Allergy (Severe, Verified 10/06/24 09:34) Swelling in the Joints hydromorphone [From Dilaudid] Adverse Reaction (Intermediate, Verified 10/06/24 09:34) Anxiety HPI Comments Details: The patient is a 64-year-old man with a known history of asthma COPD overlap syndrome. Patient states that he had been sick with his respiratory issues for the last 10 years. He was initially diagnosed with pneumonia. He has had bronchoscopies and also apparently a biopsy in the past. I cannot find the re sults at [facility]. He has also gone to [place] for further evaluation. He has been on oxygen for his respiratory failure. Currently using inogen. He has had multiple hospitalizations usually add [facility]. He also goes to [facility]. He has had multiple CT scans done for his pulmonary nodules. His last CT scan was done at [facility]. He has been on nebulized therapy as the inhalers have not been effective for him. He recently finished a prednisone taper. He states that his breathing has been a little bit more labored. Moderate severity. The weather has not helped either. He states that he quit smoking many years ago. 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 We did review a CT scan of the chest from 2015 from [facility] demonstrating areas of attenuation, ground-glass opacities along with moderate emphysema. He was asking about the xypher valves and see if he was a candidate for them. 12/23/2022 The patient is here for a hospital follow up visit. He was admitted to [facility] with acute on chronic hypoxic and hypercarbic respiratory failure. He was noted to have CM with acute CHF, EF 15%. Cardiac meds adjusted. PLaced on diuresis. Required BIPAP, although has a hard time tolerating the BIPAP. We did talk about the improtance of non invasive ventilator if he has any evicence of hypercarbia. He was taken off the prednisone and he has been doing ok and he was also taken off the theophylline. HE was placed on digoxin and Entresto, but did not tolerate the entrsto and was changed to an PATRICIA inhibitor which he is tolerating better. He was also treated got a GI infection. We are requesting the discharge summary at this time. 01/08/2023 the patient is here for pulmonary follow-up visit. He continues to have increased work of breathing. He has a maximal respiratory therapy. Had to come off the theophylline because of his other comorbidities. Is based on the very severe COPD and chronic respiratory failure along with his recent admission with hypercarbic respiratory failure to the hospital will start the patient on noninvasive ventilator. The noninvasive ventilator will help him with improving his gas exchange, improved his prognosis and decrease hospitalizations. 03/17/2023 the patient is here for pulmonary follow-up visit. The patient is feeling a lot better. He is working closely with his cardiac status. He is improving and therefore his respiratory status is improving as well. He feels a lot stronger. He is going to have a repeat echocardiogram and may indeed need a defibrillator if his EF continues to be low. In the meantime the patient did get a noninvasive ventilator. Unfortunately tried multiple masks and cannot sleep with it he tried using it during the daytime he did not tolerated. At this point the patient does not want her continue using it. I did recommend he call the [facility] in order for them to pick it up since he is not using it. We will reassess in the future depending on his CO2 if it starts going up at that time if that is the case we will look into restarting noninvasive therapy. Regards pulmonary nodules he is due for CT scan in July. In addition to all this he is trying to wean off the opiates specially because he has had multiple complications because of the opiates including constipation. Will go ahead and refer him to the [facility] in order for him to look for alternative therapies in view of his severe chronic back and neck pain. This will help his respiratory status as well. 08/11/2023 the patient is here for pulmonary follow-up visit. He was recently seen for a COPD exacerbation. He was evaluated back the end of July he was placed on Vantin and also prednisone he did not take prednisone. The is still coughing although the cough is better less productive is still not gain. Moderate severity. The patient did have a chest x-ray without any acute disease at that time. He continues with respiratory therapy. His cardiac status is stable. He has a hard time expectorating. He does have a flutter valve. I did encourage him for him to use it. The patient will go ahead and start Bactrim. If he still having a productive cough I did provide him with sputum cup in order for him to provide. 11/13/2023 the patient is here for a pulmonary follow-up visit. He is finally feeling better. Overall in a much better health state. He has been continue to use his cardioprotective medications and seems to be feeling better from the standpoint. He did recently have an echocardiogram he does not know the results. I am hopeful that his EF has gotten better. In addition to that he has no longer taking prednisone or antibiotics. He is regimen is back to his baseline. His breathing is well. He is using his oxygen with good effect. He continues his IVIG infusions every 4 weeks. The patient does have severe COPD based on his PFTs that he had back in July 2022. Now he has in a good place to start pulmonary rehabilitation. Therefore since it is close to [facility] will send a referral there. He can start rehab and close monitoring specially with underlying cardiac and pulmonary disease. After that he probably can do it on his own. 03/23/2024 the patient is here for a pulmonary follow-up visit. Overall the patient is doing a lot better. He has been stronger from the heart standpoint which is reassuring. He received respiratory medicines are also helping. He has been able to be off the oxygen which those were reassuring. Has multiple surgeries however that are pending. He is having hand surgery and also needs dental surgery and back surgery. Will go ahead and repeat his pulmonary function studies to assess his capacity. His last PFTs very significant for a very severe obstruction. Therefore he ended needs to understand that he is high risk for perioperative pulmonary complications. Therefore all the non invasive alternative options need to be looked into to see if surgery and anesthesia can be avoided altogether. Is surgery seeing only option then the patient is indeed medically optimized to undergo surgery. Will go ahead and repeat his PFTs. The patient is also having some slight discomfort right below the ribcage on the left. Pleuritic in nature. Likely musculoskeletal. I will have him get an x- ray. Also reproducible therefore could be musculoskeletal. The patient does not have any rash. He did get vaccinated for shingles. He will have an x-ray and if he has not getting better in the next several weeks he can always call so we can readdress it. 07/07/2024 the patient is here for a pulmonary follow-up visit. Overall he is doing well. He is staying active. His respiratory status are pretty much baseline. He is using the oxygen with activity with good effect. The patient also has been using all his nebulized therapy. He did require antibiotics several months ago. He did recover fully which is reassuring. He is starting to develop a respiratory illness at this time. Will make sure that he has proper medications available to start therapy if he worsens. He tends to worsen quickly. In the meantime he needs to undergo pulmonary function studies. We had had to cancel him because of lack of availability. But now which should be able to schedule them at this time. Therefore he will continue with current respiratory therapy will follow-up in 3 months after his PFTs. If he develops any worsening issues prior to that he will call for an earlier assessment. 08/24/2024 the patient is here for a pulmonary follow-up visit. Since we last spoke he was diagnosed with pneumonia. He had a CT scan a [facility]. Demonstrated basilar consolidations. In addition to that x-rays demonstrating the same. Left more than right. The patient did have a repeat chest x-ray here [place] about a week ago. I did review. Has not been officially read but I can not appreciate any airspace disease. The appears to be better this time. This is all reassuring. He did complete the antibiotics and he is completing course of prednisone. He did recently start the theophylline. We start him on low-dose. He is going to monitor closely for any cardiac adverse effects especially with his cardiac history. But at this point the patient does have advanced pulmonary disease will trying to provide him with optimize care. If however he can not tolerate theophylline he can stop it. Other options include other alternative respiratory medications that have become available. We also talked about Dupixent. Will go ahead and recheck his eosinophils to see if he is a candidate for that. in addition to that we did talk about lung volume reduction intervention. May be a good candidate for t his. I will have him look into it to learn about it a little bit more. He continues to exercise regularly. will also have him get blood work including a blood gas. If his CO2 is elevated will going to talk about a noninvasive ventilator that would also help him with his advanced respiratory failure. The patient will follow-up in a couple months. He is scheduled to have PFTs soon. 10/06/2024 the patient has a telehealth visit today. He is on feeling well so therefore decided to stay home. The patient recently went to a and afterwards he was very tired. He denies any sick contacts at this time. Although he will monitor closely for any worsening symptoms. He continues to have frequent exacerbations and shortness of breath. He did undergo pulmonary function studies which we did review. He still has a very severe obstruction although slightly better than before although he seems to have worsening diffusing capacity. Likely this is resulting in a decreased respiratory reserve in worsening symptoms. The patient has been medically optimized. Will go ahead and see if he is a candidate for Dupixent. Therefore her come in and will can check his eosinophil count. In addition to that will go ahead and check a venous gas. The patient does have worsening respiratory failure so therefore may be a good candidate for noninvasive ventilator to help him with the work of breathing. Potentially decrease exacerbations and decrease hospitalizations. Therefore he will come in for the blood gas when he comes in for the blood work. In addition to that he may be a good candidate for Ohtuvayre this will provide additional bronchodilation of the airways and his limited state. This may provide some relief. The patient will return couple months and will at that point talk about lung volume reduction interventions as well as another option moving forward. [facility] Medical History (Updated 05/13/24 @ 00:02 by Eduard Vasquez) Chronic respiratory failure Pleuritic chest pain Pre-op chest exam Chondrocalcinosis Chronic neck and back pain Asthma Asthma-COPD overlap syndrome Asthma FH: bowel obstruction Bronchitis Pulmonary nodules Back pain Dyspnea COPD (chronic obstructive pulmonary disease) Surgical History Hx of colonoscopy History of esophagogastroduodenoscopy (EGD) History of partial colectomy History of hernia repair History of lung biopsy Family History Mother History of lung cancer Social History Household Members: Spouse and Children Housing: House Do you presently have visiting nurse or other home services: No Alcohol intake: former Patient Tobacco Use Status: Former Tobacco user Tobacco use type: Cigarette Years Smoked: 15 years Second Hand Smoke Exposure: No Substance Use Type: Caffiene service: No Current occupational status: disabled Review of Systems Const Denies fatigue, Denies fever(s), Denies headache(s), Denies night sweats and Denies poor appetite ENT Denies change in voice, Denies headache(s), Denies lip swelling, Denies mouth pain, Reports nasal congestion, Reports nasal discharge, Reports neck pain and Denies tongue swelling Card Denies chest pain, Reports dyspnea and Reports dyspnea on exertion Resp Denies change in phlegm color, Denies chest congestion, Reports cough, Denies hemoptysis, Denies excessive phlegm production, Denies pain on inspiration, Reports dyspnea, Reports dyspnea on exertion and Reports wheezing GI Denies abdominal pain Musc Denies no additional complaints, Reports back pain and Reports neck pain Neuro Denies Neuro-related abnormal movements and Denies headache(s) Psych Denies no additional complaints Endo Denies fatigue Marcel/Lymph Denies easy bleeding and Denies lymphadenopathy Aller/Immun Denies lip swelling, Denies tongue swelling and Reports wheezing Physical Exam Vital Signs: Last Vital Signs Temp 97.1 F 05/05/24 07:30 Pulse 95 05/05/24 09:00 Resp 20 05/05/24 07:43 BP 103/58 L 05/05/24 09:00 Pulse Ox 98 05/05/24 07:30 O2 Del Method Nasal Cannula 05/05/24 07:30 O2 Flow Rate 3 05/05/24 07:30 Oxygen Flow Rate 2 05/04/24 18:06 BMI result Body Mass Index 19.9 Const General: comfortable and alert Orientation/consciousness: patient oriented x3 HEENT General nose exam: Abnormal external nose present and Nasal discharge present Resp Effort & Inspection: normal respiratory effort and able to speak in complete sentences Neuro General: patient oriented x3 Assessment & Plan Assessment & Plan (1) COPD (chronic obstructive pulmonary disease): Comment: very severe Code(s): J44.9 - Chronic obstructive pulmonary disease, unspecified Category: Medical Qualifiers: COPD type: emphysema Emphysema type: centrilobular Qualified Code(s): J43.2 - Centrilobular emphysema (2) Dyspnea: Code(s): R06.00 - Dyspnea, unspecified Category: Medical Qualifiers: Dyspnea type: dyspnea on exertion Qualified Code(s): R06.00 - Dyspnea, unspecified (3) Pulmonary nodules: Code(s): R91.8 - Other nonspecific abnormal finding of lung field Category: Medical (4) Cardiomyopathy: Code(s): I42.9 - Cardiomyopathy, unspecified Category: Medical Qualifiers: Cardiomyopathy type: unspecified Qualified Code(s): I42.9 - Cardiomyopathy, unspecified (5) Chronic respiratory failure: Code(s): J96.10 - Chronic respiratory failure, unspecified whether with hypoxia or hypercapnia Category: Medical Qualifiers: Respiratory failure complication: hypoxia Qualified Code(s): J96.11 - Chronic respiratory failure with hypoxia (6) Asthma-COPD overlap syndrome: Code(s): J44.9 - Chronic obstructive pulmonary disease, unspecified Category: Medical Plan diuresis as tolerated Continue respiratory therapy: Daliresp, Brovana, Yulperi start Ohtuvayre nebs consider Dupixent, need to check eosinophils Bloodgas, if PCO2 is elevated will benefit from NIV. He does have a poor prognosis and high risk for hospitalization. A non invasive ventilator would improve his prognosis, decrease hospitalizations and improve his gas exchange RAFAELA as needed continue oxygen 2 L with activity. He does use a POC for portability outside of the home (Inogen) CPT with Acapella valve. Theophylline low dose consider Lung volume reduction interventions follow-up in 2 months Orders: Orders Immunoglobulins,IgG IgA IgM Today J44.9 - Chronic obstructive pulmonary disease, unspecified Venous Blood Gas Today J44.9 - Chronic obstructive pulmonary disease, unspecified Complete Blood Count Auto Diff Today J44.9 - Chronic obstructive pulmonary disease, unspecified Immunoglobulin G Subclasses Today J44.9 - Chronic obstructive pulmonary diseas e, unspecified Immunoglobulin E Today J44.9 - Chronic obstructive pulmonary disease, unspecified Coding Level of Care Code Est Pt Level 4 (20370) Complex EM visit Add On G2211 Diagnoses Centrilobular emphysema J43.2 COPD type: emphysema Emphysema type: centrilobular Dyspnea on exertion R06.00 Dyspnea type: dyspnea on exertion Pulmonary nodules R91.8 Cardiomyopathy, unspecified type I42.9 Cardiomyopathy type: unspecified Chronic respiratory failure with hypoxia J96.11 Respiratory failure complication: hypoxia Asthma-COPD overlap syndrome J44.9 Time Spent (min) 15
== END 2024-10-06 10:05 | disposition home or self-care (01) ==
LOC: HO.HPS 09:34
PROVIDERS: PCP Internal Medicine; Visit Provider Hospitalist
DX: J43.2 Centrilobular emphysema (principal); R91.8 Other nonspecific abnormal finding of lung field; J96.11 Chronic respiratory failure with hypoxia; I42.9 Cardiomyopathy, unspecified
CPT/HCPCS: 99214; G2211

== ENCOUNTER → 2024-10-06 09:34 | Outpatient (BNVA) | payer MEDICARE, MEDICAID, SELFPAY | PROVIDERS: PCP Internal Medicine; Visit Provider Hospitalist | DX: J43.2 Centrilobular emphysema (principal); J96.11 Chronic respiratory failure with hypoxia; J44.9 Chronic obstructive pulmonary disease, unspecified; R91.8 Other nonspecific abnormal finding of lung field; I42.9 Cardiomyopathy, unspecified | CPT/HCPCS: 99212 ==

== ENCOUNTER 2025-01-03 08:47 | Outpatient (REF) | payer MEDICARE, MEDICAID, SELFPAY ==
--- NOTE | ~2025-01-03 | XR_ITS ---
EXAMINATION: XR CHEST CLINICAL INFORMATION: C43.9 - Malignant melanoma of skin, unspecified COMPARISON: August 09, 2024. TECHNIQUE: 2 views of the chest were obtained. FINDINGS: Pulmonary reticular pattern. Patchy opacities in the perihilar regions bilaterally. Blunting of the right costophrenic angle. Cardiomediastinal silhouette size is normal. Multilevel thoracolumbar spondylosis with the old compression fracture deformities at multiple levels of the mid and lower thoracic spine. XR/XR chest 2V IMPRESSION: Chronic interstitial lung disease. Superimposed acute small airway disease should be considered in the correct clinical settings. Multilevel old compression fracture deformities, thoracic spine, likely osteoporotic. Small right-sided pleural effusion versus pleural thickening. Electronically signed by: González Goldsmith MD 01/03/2025 09:30 AM EDT
--- OUTSIDE RECORDS SUMMARY | 2025-01-03 09:13 | XMS_ITS | Data Portability ---
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 - All Locations) Patient Can Go To The Location Of Their Choice, 01/16/2022 00:19:19 01/16/2001/16/2022 COMPL ETE CBC WITH DIFF lymph 3.4 % (15-43 ) low Not Available [facility] (Centralized Electronic Ordering - All Locations) Patient Can Go To The Location Of Their Choice, 01/16/2022 00:19:19 01/16/2001/16/2022 COMPL ETE CBC WITH DIFF monocyte 5.1 % (4.5-1 0.5) Not Available [facility] (Centralized Electronic Ordering - All Locations) Patient Can Go To The Location Of Their Choice, 01/16/2022 00:19:19 01/16/2001/16/2022 COMPL ETE CBC WITH DIFF eo 0.1 % (0-6) Not Available [facility] (Centralized Electronic Ordering - All Locations) Patient Can Go To The Location Of Their Choice, 01/16/2022 00:19:19 01/16/2001/16/2022 COMPL ETE CBC WITH DIFF baso 0.3 % (0-2) Not Available [facility] (Centralized Electronic Ordering - All Locations) Patient Can Go To The Location Of Their Choice, 01/16/2022 00:19:19 01/16/2001/16/2022 COMPL ETE CBC WITH DIFF imm gran 0.7 % Not Available [facility] (Centralized Electronic Ordering - All Locations) Patient Can Go To The Location Of Their Choice, 01/16/2022 00:19:19 01/16/2001/16/2022 COMPR EHENS ARABELLA METAB OLIC PANL glucose 87 mg/dL (70-99 ) Not Available [facility] (Centralized Electronic Ordering - All Locations) Patient Can Go To The Location Of Their Choice, 01/16/2022 00:52:42 01/16/2001/16/2022 COMPR EHENS ARABELLA METAB OLIC PANL BUN 13 mg/dL (8-23) Not Available [facility] (Centralized Electronic Ordering - All Locations) Patient Can Go To The Location Of Their Choice, 01/16/2022 00:52:42 01/16/2001/16/2022 COMPR EHENS ARABELLA METAB OLIC PANL creatinine 1.1 mg/dL (0.7-1 .2) Not Available [facility] (Centralized Electronic Ordering - All Locations) Patient Can Go To The Location Of Their Choice, 01/16/2022 00:52:42 01/16/2001/16/2022 COMPR EHENS ARABELLA METAB OLIC PANL sodium 136 mmol/ L (133-1 45) Not Available [facility] (Centralized Electronic Ordering - All Locations) Patient Can Go To The Location Of Their Choice, 01/16/2022 00:52:42 01/16/2001/16/2022 COMPR EHENS ARABELLA METAB OLIC PANL potassium 5.6 mmol/ L (3.6-5 .2) high Not Available [facility] (Centralized Electronic Ordering - All Locations) Patient Can Go To The Location Of Their Choice, 01/16/2022 00:52:42 01/16/2001/16/2022 COMPR EHENS ARABELLA METAB OLIC PANL chloride 98 mmol/ L (98-10 7) Not Available [facility] (Centralized Electronic Ordering - All Locations) Patient Can Go To The Location Of Their Choice, 01/16/2022 00:52:42 01/16/2001/16/2022 COMPR EHENS ARABELLA METAB OLIC PANL bicarbonate 24 mmol/ L (22-29 ) Not Available [facility] (Centralized Electronic Ordering - All Locations) Patient Can Go To The Location Of Their Choice, 01/16/2022 00:52:42 01/16/2001/16/2022 COMPR EHENS ARABELLA METAB OLIC PANL anion gap 14 (4-17) Not Available [facility] (Centralized Electronic Ordering - All Locations) Patient Can Go To The Location Of Their Choice, 01/16/2022 00:52:42 01/16/2001/16/2022 COMPR EHENS ARABELLA METAB OLIC PANL albumin 3.9 gm/dL (3.4-4 .8) Not Available [facility] (Centralized Electronic Ordering - All Locations) Patient Can Go To The Location Of Their Choice, 01/16/2022 00:52:42 01/16/2001/16/2022 COMPR EHENS ARABELLA METAB OLIC PANL calcium 9.1 mg/dL (8.6-1 0.5) Not Available [facility] (Centralized Electronic Ordering - All Locations) Patient Can Go To The Location Of Their Choice, 01/16/2022 00:52:42 01/16/2001/16/2022 COMPR EHENS ARABELLA METAB OLIC PANL bilirubin,to eloisa 0.7 mg/dL (0-1.2 ) Not Available [facility] (Centralized Electronic Ordering - All Locations) Patient Can Go To The Location Of Their Choice, 01/16/2022 00:52:42 01/16/2001/16/2022 COMPR EHENS ARABELLA METAB OLIC PANL total protein 7.0 gm/dL (6.2-8 .2) Not Available [facility] (Centralized Electronic Ordering - All Locations) Patient Can Go To The Location Of Their Choice, 01/16/2022 00:52:42 01/16/2001/16/2022 COMPR EHENS ARABELLA METAB OLIC PANL Ag ratio 1.3 Not Available [facility] (Centralized Electronic Ordering - All Locations) Patient Can Go To The Location Of Their Choice, 01/16/2022 00:52:42 01/16/2001/16/2022 COMPR EHENS ARABELLA METAB OLIC PANL AST 34 U/L (0-40) Not Available [facility] (Centralized Electronic Ordering - All Locations) Patient Can Go To The Location Of Their Choice, 01/16/2022 00:52:42 01/16/2001/16/2022 COMPR EHENS ARABELLA METAB OLIC PANL alk phos 56 U/L (40-12 9) Not Available [facility] (Centralized Electronic Ordering - All Locations) Patient Can Go To The Location Of Their Choice, 01/16/2022 00:52:42 01/16/2001/16/2022 COMPR EHENS ARABELLA METAB OLIC PANL ALT 22 U/L (0-41) Not Available [facility] (Centralized Electronic Ordering - All Locations) Patient Can Go To The Location Of Their Choice, 01/16/2022 00:52:42 01/16/2001/16/2022 COMPR EHENS ARABELLA METAB OLIC PANL estimated GFR creatinine 74 mL/mi n/1.7 3_M2 Creat inine based estim ated glome rular filtr ation rate (eGFR ) is calcu lated using the Chron ic Kidne y Disea se Epide miolo gy Colla borat ion (CKD- EPI). The CKD-E PI calcu latio n is not valid ated in child holger (<18 years ), pregn ant woman or in racia l or ethni c subgr oups. Not Available [facility] (Centralized Electronic Ordering - All Locations) Patient Can Go To The Location Of Their Choice, 01/16/2022 00:52:42 01/16/2001/15/2022 rapid flu (A+B) Flu A (ref: neg) negati ve Not Available [facility] [address], [place], [address], 01/15/2022 17:36:50 01/16/20 22 01/15/2022 rapid flu (A+B) Flu B (ref: neg) negati ve Not Available [facility] [address], [place], [address], 01/15/2022 17:36:50 01/16/20 22 01/15/2022 rapid flu (A+B) Control Visual ized/V alid Not Available [facility] [address], [place], [address], 01/15/2022 17:36:50 01/16/20 22 01/15/2022 rapid flu (A+B) Location [facility] [address], [place] [address], [id number] Not Available [facility] [address], [place], [address], 01/15/2022 17:36:50 08/26/20 21 08/26/2021 XR, chest , 2 view No observ ation record ed. [email or web address] [place] [address] Imaging Scheduling (Inpatient) [address] [place], [address], 08/26/2021 11:43:00 09/13/20 21 09/13/2021 XR, chest , 2 view No observ ation record ed. [facility] ([facility] [place]) [address] , [address], [place], [address], 09/15/2021 12:49:20 11/12/19 22 11/11/2021 XR, chest , 2 view No observ ation record ed. [email or web address] [facility] [address] [place], [address], 11/14/2021 18:55:38 01/22/20 22 01/20/2022 XR, abdom en No observ ation record ed. [email or web address] Not Available 07/2022 14:38:41 01/22/20 22 01/20/2022 XR, chest , 2 view No observ ation record ed. [email or web address] [facility] (Imaging) [address] [place], [address], 01/26/2022 14:38:46 Result Notes None recorded. Problems Name Problem SNOMED Code Status Onset Date Resolution Date Notes Provider Name and Address Organization Details Recorded Time Hypertensive disorder 71548845 Active 2018 FANNY LINARES NP [address], [place], [address], [place] [facility] 9 20:30:11 Problem Notes None recorded. Procedures Surgical History Date Name Laterality Status Provider Name and Address Organization Details Recorded Time 9 IV Start Procedure - completed ANAMARIA ALFARO [address], [place], [address], [place] [facility] 07/10/2019 21:56:04 9 IV Start Procedure - completed DENISE SCOTT NP [address] [place], [address], [place] [facility] 06/18/2019 16:39:55 9 Nebulizer treatment - completed DENISE SCOTT NP [address], [place], [address], [place] [facility] 06/19/2019 00:03:30 fixation of intestine completed Milady KEEN NP [address], [place], [address], [place] [facility] 09/12/2021 15:09:52 Imaging Results Imaging Date Name Status [facility] Details LastModified Time 08/26/2021 XR, chest, 2 view completed sean Rodriguez Imaging Scheduling (Inpatient) [facility] [place], [address], 08/26/2021 11:43:00 09/13/2021 XR, chest, 2 view completed [facility] ([facility] [place]) [address] , [address], [place], [address], 09/15/2021 12:49:20 11/11/2021 XR, chest, 2 view completed [email or web address] [facility] [address] [place], [address], 11/14/2021 18:55:38 01/20/2022 XR, abdomen completed [email or web address] Information not available 01/26/2022 14:38:41 01/20/2022 XR, chest, 2 view completed [email or web address] [facility] (Imaging) [address] [place], [address], 01/26/2022 14:38:46 Procedure Notes None recorded. Medical Equipment None Reported. Allergies Allergen ID Allergen Name Allergen Category Reaction Reaction Severity Criticality Documentation Date Start Date Code Code System Note Provider Name and Address Organization Details Recorded Time 970641 Cipro medicatio n Not available Not available Not available 09/12/2021 78715 3 RxNorm Milady KEEN, [employer] [address] [place], [address], [place] [facility] 15:06:28 [id number] Levaquin medicatio n Not available Not available Not available 09/12/2021 04206 2 RxNorm Milady KEEN, [employer] [address] [place], [address], [place] [facility] 15:06:39 [id number] Bactrim medicatio n Not available Not available Not available 09/12/2021 64834 9 RxNorm dizzi ness Milady KEEN, [employer] [address] [place], [address], [place] [facility] 15:32:53 Medications Name Sig Start Date Stop Date Status Note LastModified by Organization Details LastModified Time losartan 50 mg tablet TAKE 1 TABLET BY MOUTH EVERY DAY 09/12 completed Not Available Not Available Not Available cyclobenzap rine 10 mg tablet TAKE 1 TABLET BY MOUTH DAILY NEEDED FOR PAIN active Not Available Not Available No t Available nystatin 100,000 unit/mL oral suspension TAKE 5 ML BY MOUTH 4 TIMES A DAY,X7 DAYS active Not Available Not Available No t Available acetaminoph en 325 mg tablet Take 2 tablets every 6 hours by oral route. 09/12 completed Not Available Not Available Not Available prednisone 10 mg tablet TAKE 1 TO 2 TABLETS BY MOUTH EVERY DAY DIRECTED 01/15 completed Not Available Not Available Not Available doxycycline hyclate 100 mg capsule Take 1 capsule twice a day by oral route for 7 days. active Not Available Not Available No t Available clindamycin HCl 300 mg capsule active Not Available Not Available Not Available albuterol sulfate 2.5 mg/3 mL (0.083 %) solution for nebulizatio n INHALE CONTENTS OF 1 VIAL VIA NEBULIZER EVERY 4 HOURS NEEDED FOR WHEEZE active Not Available Not Available No t Available cetirizine 10 mg tablet TAKE 1 TABLET BY MOUTH DAILY NEEDED FOR SINUS SYMTOMS active Not Available Not Available No t Available cefpodoxime 200 mg tablet active Not Available Not Available Not Available azithromyci n 250 mg tablet TAKE 1 TABLET BY MOUTH DAILY THURSDAY, THURSDAY AND 01/15 completed Not Available Not Available Not Available ibuprofen 800 mg tablet active Not Available Not Available Not Available diltiazem CD 180 mg capsule,ext ended release 24 hr 06/18 completed Not Available Not Available Not Available methadone 10 mg tablet PLEASE SEE ATTACHED FOR DETAILED DIRECTION S active Not Available Not Available No t Available diltiazem CD 240 mg capsule,ext ended release 24 hr TAKE 1 CAPSULE BY MOUTH EVERY DAY active Not Available Not Available No t Available sucralfate 1 gram tablet 02/14 completed Not Available Not Available Not Available prednisone 20 mg tablet Take 1 tablet every day by oral route as directed for 4 days. 01/15 completed Not Available Not Available Not Available alendronate 70 mg tablet TAKE 1 TABLET BY MOUTH ONE TIME PER WEEK active Not Available Not Available No t Available betamethaso ne, augmented 0.05 % topical cream 01/15 completed Not Available Not Available Not Available gabapentin 400 mg capsule TAKE 1 CAPSULE BY MOUTH 3 TIMES A DAY active Not Available Not Available No t Available BD Insulin Syringe 1 mL 25 gauge x 5/8 09/12 completed Not Available Not Available Not Available prednisone 5 mg tablet TAKE 2 TABLETS BY MOUTH EVERY DAY 08/23 completed Not Available Not Available Not Available Debrox 6.5 % ear drops INSTILL 5 DROPS INTO AFFECTED EAR(S) BY OTIC ROUTE 2 TIMES PER DAY 09/12 completed Not Available Not Available Not Available levofloxaci n 250 mg tablet 02/14 completed Not Available Not Available Not Available valacyclovi r 500 mg tablet 02/14 completed Not Available Not Available Not Available sulfamethox azole 800 mg-trimetho prim 160 mg tablet TAKE 1 TABLET BY MOUTH TWICE A DAY FOR 7 DAYS 09/12 completed Not Available Not Available Not Available ketorolac 30 mg/mL (1 mL) injection solution 30 mg administe red on scene. Time administe red: 06/18 completed Not Available Not Available Not Available oxycodone 15 mg tablet 08/23 completed Not Available Not Available Not Available BD Regular Bevel Keeling 18 gauge x 1 09/12 completed Not Available Not Available Not Available hydromorpho ne 2 mg tablet 01/15 completed Not Available Not Available Not Available citalopram 20 mg tablet 07/10 completed Not Available Not Available Not Available prednisone 1 mg tablet 5 TABLETS BY MOUTH DAILY, TAPER DIRECTED active Not Available Not Available No t Available doxycycline monohydrate 100 mg capsule TAKE 1 CAPSULE BY MOUTH TWICE A DAY FOR 7 DAYS 01/15 completed Not Available Not Available Not Available pantoprazol e 40 mg tablet,maddy yed release TAKE 1 TABLET BY MOUTH DAILY, NEEDED FOR STOMACH PAIN 01/15 completed Not Available Not Available Not Available triamcinolo ne acetonide 0.1 % topical ointment 11/10 completed Not Available Not Available Not Available prednisone 50 mg tablet TAKE 1 TABLET BY MOUTH EVERY DAY FOR 5 DAYS 01/15 completed Not Available Not Available Not Available docusate sodium 100 mg capsule 2 CAPSULE BY MOUTH 2 TIMES A DAY NEEDED FOR CONSTIPAT ION FOR 30 DAYS active Not Available Not Available No t Available budesonide 0.25 mg/2 mL suspension for nebulizatio n INHALE 1 VIAL VIA NEBULIZER TWICE A DAY RINSE MOUTH AFTER USE 01/15 completed Not Available Not Available Not Available Senna Laxative 8.6 mg tablet TAKE 1 TABLET BY MOUTH EVERY DAY 09/12 completed Not Available Not Available Not Available omeprazole 20 mg capsule,del ayed release 02/14 completed Not Available Not Available Not Available budesonide 0.5 mg/2 mL suspension for nebulizatio n INHALE 1 VIAL VIA NEBULIZER TWICE A DAY FOR 30 DAYS active Not Available Not Available No t Available hydrochloro thiazide 25 mg tablet TAKE 1 TABLET BY MOUTH EVERY DAY 09/12 completed Not Available Not Available Not Available gabapentin 100 mg capsule 02/14 completed Not Available Not Available Not Available sodium chloride 0.9 % intravenous solution Inject 500 mL by intraveno us route. 09/12 completed Not Available Not Available Not Available lorazepam 1 mg tablet TAKE 1 TABLET BY MOUTH 3 TIMES A DAY NEEDED FOR ANXIETY active Not Available Not Available No t Available testosteron e cypionate 200 mg/mL intramuscul ar oil 2020 active Not Available Not Available Not Avai lable ibuprofen 600 mg tablet 02/14 completed Not Available Not Available Not Available polyethylen e glycol 3350 17 gram/dose oral powder 02/14 completed Not Available Not Available Not Available levofloxaci n 500 mg tablet 06/25 completed Not Available Not Available Not Available albuterol sulfate HFA 90 mcg/actuati on aerosol inhaler INHALE 2 PUFFS BY MOUTH EVERY 4 TO 6 HOURS NEEDED FOR SHORTNESS OF BREATH OR WHEEZING active Not Available Not Available No t Available doxycycline hyclate 20 mg tablet 11/03 completed Not Available Not Available Not Available cefdinir 300 mg capsule TAKE 1 CAPSULE BY MOUTH EVERY 12 HOURS FOR 7 DAYS 01/15 completed Not Available Not Available Not Available sulindac 200 mg tablet active Not Available Not Available Not Available naproxen 500 mg tablet TAKE 1 TABLET BY MOUTH 2 TIMES A DAY NEEDED JOINT OR MUSCLE PAIN 09/12 completed Not Available Not Available Not Available amoxicillin 875 mg-potassiu m clavulanate 125 mg tablet TAKE 1 TABLET BY MOUTH TWICE A DAY FOR 10 DAYS active Not Available Not Available No t Available amoxicillin 500 mg-potassiu m clavulanate 125 mg tablet 11/10 completed Not Available Not Available Not Available Arthritis Pain Relief (acetaminop hen) ER 650 mg tablet,exte nd release active Not Available Not Available N ot Available DILT-XR 180 mg capsule, extended release 02/14 completed Not Available Not Available Not Available duloxetine 20 mg capsule,del ayed release TAKE 1 CAPSULE BY MOUTH EVERY DAY active Not Available Not Available No t Available lactulose 10 gram/15 mL oral solution TAKE 30MLS BY MOUTH EVERY DAY NEEDED FOR CONSTIPAT ION 09/12 completed Not Available Not Available Not Available gabapentin 400 mg PO TID 01/15 completed Not Available Not Available Not Available MoviPrep 100 gram-7.5 gram-2.691 gram oral powder packet 02/14 completed Not Available Not Available Not Available calcium 600 mg (as carbonate)- vitamin D3 10 mcg (400 unit) tablet TAKE 1 TABLET BY MOUTH TWICE A DAY active Not Available Not Available No t Available arformotero l 15 mcg/2 mL solution for nebulizatio n INHALE 2 ML INHALATIO N 2 TIMES A DAY active Not Available Not Available No t Available oxycodone 10 mg tablet TAKE 2 TABLETS BY MOUTH EVERY 4 HOURS NEEDED FOR PAIN FOR 28 DAYS active Not Available Not Available No t Available Solu-Medrol (PF) 125 mg/2 mL solution for injection 125 mg IV administe red on scene. Time administe red: 1113 09/12 completed Not Available Not Available Not Available Prolia 60 mg/mL subcutaneou s syringe active Not Available Not Available No t Available testosteron e 20.25 mg/1.25 gram per pump act.(1.62 %) transdermal gel APPLY 2 PUMPS TO THE SKIN DAILY DOSE WILL BE ADJUSTED NEEDED active Not Available Not Available No t Available Daliresp 500 mcg tablet TAKE 1 TABLET BY MOUTH EVERY DAY 01/15 completed Not Available Not Available Not Available Spiriva Respimat 2.5 mcg/actuati on solution for inhalation 02/14 completed Not Available Not Available Not Available Incruse Ellipta 62.5 mcg/actuati on powder for inhalation 09/12 completed Not Available Not Available Not Available Breo Ellipta 200 mcg-25 mcg/dose powder for inhalation 09/12 completed Not Available Not Available Not Available Narcan 4 mg/actuatio n nasal spray ADMINISTE R 1 SPRAY INTO ONE NOSTRIL. CALL 911. REPEAT AFTER 2 3 MIN IF NO OR MINIMAL RESPONSE active Not Available Not Available No t Available Readi-Cat 2 2 % (w/v) oral suspension PER RECOMMEND ATIONS OF RADIOLOGY 1 THE EVENING BEFORE WHEN THE MORNING OF PROCEDURE 01/15 completed Not Available Not Available Not Available Daliresp 250 mcg tablet TAKE 1 TABLET BY MOUTH EVERY DAY active Not Available Not Available No t Available Yupelri 175 mcg/3 mL solution for nebulizatio n INHALE 1 VIAL VIA NEBULIZER DAILY active Not Available Not Available No t Available Tiadylt ER 240 mg capsule,ext ended release TAKE 1 CAPSULE BY MOUTH EVERY DAY active Not Available Not Available No t Available Vitals Date Recorded Respiratory rate Body temperature Oxygen saturation Oxygen saturation in Arterial blood by Pulse oximetry Heart rate Systolic blood pressure Diastolic blood pressure Provider Name and Address Organization Details Last Updated DateTime 1 16 /min 97.8 [degF] 95 % 95 % 80 /min 124 mm[Hg] 78 mm[Hg] Not Available [facility] 1 14:44:36 Date Recorded Respiratory rate Oxygen saturation Oxygen saturation in Arterial blood by Pulse oximetry Inhaled oxygen flow rate Heart rate Body temperature Systolic blood pressure Diastolic blood pressure Provider Name and Address Organization Details Last Updated DateTime 1 18 /min 99 % 99 % 3 L/min 90 /min 97.6 [degF] 122 mm[Hg] 80 mm[Hg] Not [facility] 15:17:24 Date Recorded Oxygen saturation Oxygen saturation in Arterial blood by Pulse oximetry Provider Name and Address Organization Details Last Updated DateTime 09/12/2021 95 % 95 % Milady KEEN NP [address] [place], [address], [place] [facility] 09/12/2021 20:20:55 Date Recorded Heart rate Body temperature Oxygen saturation Oxygen saturation in Arterial blood by Pulse oximetry Inhaled oxygen flow rate Respiratory rate Systolic blood pressure Diastolic blood pressure Provider Name and Address Organization Details Last Updated DateTime 2 118 /min 98.1 [degF] 98 % 98 % 3 L/min 20 /min 106 mm[Hg] 70 mm[Hg] Not Available [facility] 2 17:11:50 Date Recorded Heart rate Oxygen saturation Oxygen saturation in Arterial blood by Pulse oximetry Inhaled oxygen flow rate Respiratory rate Body temperature Body temperature Systolic blood pressure Diastolic blood pressure Provider Name and Address Organization Details Last Updated DateTime 2 116 /min 96 % 96 % 4 L/min 22 /min 100.3 [degF] 99.7 [degF] 138 mm[Hg] 90 mm[Hg] Not Available [facility] 2 16:59:38 Date Recorded Body temperature Oxygen saturation Oxygen saturation in Arterial blood by Pulse oximetry Heart rate Respiratory rate Systolic blood pressure Diastolic blood pressure Provider Name and Address Organization Details Last Updated DateTime 2 98.8 [degF] 93 % 93 % 110 /min 20 /min 118 mm[Hg] 82 mm[Hg] Not Available [facility] 2 14:22:28 Social History Question Answer Notes LastModified by Organizat ion Details LastModified Time Tobacco Smoking Status Former Smoker FANNY LINARES, TERRANCE [address] [place], [address], [place] [facility] 02/14/2019 20:30:34 Do You Have An Advance Directive? Yes Information not available 02/14/2019 What Is Your Level Of Alcohol Consumption? None Information not available 09/12/2021 What Is Your Code Status? Full Code Information not available 02/14/2019 Drugs Abused None Information not available 02/14/2019 How Many Days In The Past Year Have You Had A Heavy Drinking Consumption (4+ Female, 5+ Male)? 0 Information not available 02/14/2019 Within The Past 12 Months, Has It Happened That The Food You Bought Just Didn't Last And You Didn't Have Money To Get More. Normal Information not available 02/14/2019 Within The Past 12 Months, Have You Worried That Your Food Would Run Out Before You Got Money To Buy More. Yes Information not available 02/14/2019 Fall Risk: Do You Feel Unsteady When Standing Or Walking? No Information not available 02/14/2019 Excessive Alcohol Or Drug Use No Information not available 09/12/2021 Does This Patient Have A PCP? Yes Information not available 09/12/2021 Marital Status handy Informatio n not available 02/14/2019 What Was The Date Of Your Most Recent Tobacco Screening? 09/12/2021 Information not available 09/12/2021 Do You Use Any Illicit Or Recreational Drugs? No Information not available 09/12/2021 Has Tobacco Cessation Counseling Been Provided? No beenatsky Information not available 02/14/2019 How Many Years Have You Smoked Tobacco? 6 Quit 31 Years Ago Information not available 09/12/2021 Do You Or Have You Ever Used Any Other Forms Of Tobacco Or Nicotine? No Information not available 09/12/2021 Sex: Unknown Functional Status None recorded. Mental Status None recorded. Family History Relationship Description Onset Age of this Age Resolved Age Notes LastModified by Organization Details LastModified Time Father Diabetes mellitus handy Not available 02/14 20:30:22 Mother Malignant tumor of lung Not available 09/12 15:33:52 Medical History Condition Response Coronary Artery Disease N Parkinson's Disease N COPD Y Depression N Hypothyroidism N A-fib N Diabetes N CHF N Cancer Y Stroke N Dementia N Asthma N High Cholesterol N Rheumatoid Arthritis N Pulmonary Embolism N Hypertension Y Osteoporosis N Kidney Disease N Past Encounters Encounter ID Performer Location Encounter Start Date Encounter Closed Date Diagnosis/Indication Diagnosis SNOMED-CT Code Diagnosis ICD10 Code Diagnosis Note [id number] FANNY LINARES NP [facility] [address] [place] [address] 02/14/2019 20:20:29 02/15/2019 13:19:41 Strain of neck muscle 299947433 S16.1XXA [id number] FANNY LINARES NP [facility] [address] [place] [address] 06/18/2019 14:19:58 06/21/2019 14:15:53 Dyspnea 916156413 R06.02 Acute exac erbation of chronic obstructive pulmonary disease 540764560 J44.1 [id number] DENISE SCOTT NP [facility] [address] [facility] [address] 06/25/2019 13:50:21 06/26/2019 11:26:51 Dyspnea 773175503 R06.02 Cough 45142788 R05 chronic Anxiety 19910620 F41.9 takes lorazepam. May be increased given prednisone use. [id number] ANAMARIA ALFARO [facility] [address] [place] [address] 06/29/2019 20:09:41 06/30/2019 13:56:44 Acute exacerbation of chronic obstructive pulmonary disease 601600215 J44.1 [id number] ANAMARIA ALFARO [facility] [address] [place] [address] 07/10/2019 10:23:10 07/11/2019 11:32:34 Pneumonia 064530618 J18.9 Headache 28727153 R51 Mild dehydration 8401386 119 108 E86.0 Acute exac erbation of chronic obstructive pulmonary disease 398693992 J44.1 [id number] ANAMARIA ALFARO [facility] [address] [place] [address] 11/03/2019 15:07:16 11/04/2019 12:01:15 Impacted cerumen of bilateral ears [id number] 758352 H61.23 [id number] ANAMARIA JOHNSON [facility] [address] [place] [address] 02/12/2021 16:23:46 02/13/2021 14:31:47 Acute appendicitis 85481681 K35.80 [id number] [facility] [address] [place] [address] 08/23/2021 14:35:56 08/29/2021 12:47:06 Acute exacerbation of chronic obstructive pulmonary disease 266551585 J44.1 Rib pain 637752346 R07.8 1 8th to 9th rib on the left [id number] [facility] [address] [place] [address] 09/12/2021 14:59:32 09/18/2021 12:05:22 Exposure to SARS-CoV-2 577824678 Z20.822 Chronic ob structive pulmonary disease 02493426 J44.9 Postviral cough 15345757 4 R05.9 previously completed 2 courses of doxycyclin e 100 mg PO BID x 7 daysthen took 2 doses of bactrim that he started yesterday but stopped after feeling dizzy and high Exposure t o communicable disease 348738504 Z20.822 [id number] DARELL MARTELTERRANCE [facility] [address] [place] [address] 11/10/2021 16:21:10 11/13/2021 08:53:23 Acute exacerbation of chronic obstructive pulmonary disease 202762729 J44.1 [id number] Jacki PaigeTERRANCE maher [facility] [address] [place] [address] 01/15/2022 16:53:35 01/16/2022 13:47:02 Fever 915440871 R50.9 Dyspnea 295873002 R06.00 Acute exac erbation of chronic obstructive pulmonary disease 049759506 J44.1 Constipation 05920506 K5 9.00 [id number] ANAMARIA Cartagena [facility] [address] [place] [address] 01/16/2022 13:42:37 01/18/2022 11:32:31 Acute exacerbation of chronic obstructive pulmonary disease 793477367 J44.1 Aj has had 2 doses doxycyclin e, his WBC count was 28 k, he did not make it today to have his chest xray, therefore he will go to [facility] ED for eval. I did call for them to expect, and gave them blood results. i also wrote it down and gave to Aj to give to triage. Pt. was escalated. Health Concerns Section Related Observation LastModified by Organization Detai ls LastModified Time None Recorded Concern Status LastModified by Organization Details LastModified Time None Recorded Advance Directives Directive Y: Payers Encounter Date Sequence Insurance Name Policy Number Policy Cloud Covered Member ID Cloud Member ID Guarantor Name 08/23/2021 1 [place] [employer] Aj Butt [id number] Aj Butt 08/23/2021 2 [place] [facility] Aj Butt [id number] Aj Butt 09/12/2021 1 [place] [employer] Aj Butt [id number] Aj Butt 09/12/2021 2 [place] [facility] Aj Butt [id number] Aj Butt 11/10/2021 1 [place] [facility] Aj Butt [id number] Aj Butt 11/10/2021 2 [place] [facility] Aj Butt [id number] Aj Butt 01/15/2022 1 [place] [facility] Aj Butt [id number] Aj Butt 01/15/2022 2 [place] [facility] Aj Butt [id number] Aj Butt 01/16/2022 1 [place] [facility] Aj Butt [id number] Aj Butt 01/16/2022 2 [place] [facility] Aj Butt [id number] Aj Butt Notes Date Note Type Note Provider Name and Address Organization Details Recorded Time 08/23/2021 text/html 61 yo male who i s known to but new to this provider. PMHx includes Common variable immunodeficiency (CVID), w/ IVIG infusions q28 days, end stage COPD not on home O2, HTN, OA, osteoporosis and anxiety. Patient states he just finished course of antibiotics and 5 to 7 seven day course of PO steroids one week ago for respiratory infection. Endorses fully vaccinated against COVID-19. Endorses everyone in his home has been sick and got over it except him d/t his immune system being low. Sherri fever, chills, endorses mild intermittent frontal headache rated at 2/10, denies photophobia, managing with fluids. endorses congestion and productive cough started out green/yellowish w/antibiotics turned to clear but now has returned with discoloration. Endorses pain on both sides of his chest, left is worse, last week he fell trying to bring his motorcycle in the shed, denies seeking medical attention after fall. Pain w/deep breathing, coughing or when changing movement, feels sharp, doesn't radiate, rest 6/10, movement, cough, deep breathing 10/10, holds pillow against left chest helps to reduce pain. Denies hemoptysis, nausea, vomiting or diarrhea. VERONICA BIANCHI, TERRANCE [address], [place], [address], [place] [facility] 08/23/2021 15:56:29 09/12/2021 text/html This is a thin [age] year old male, who is chronically ill, with PMH of CVID receiving IVIG infusions every 28 days, with end stage COPD, HTN, OA, anxiety, neuropathy, known to new to provider, seeking further evaluation after he noted his O2 this morning to be 87% on RA. He reports other than noting a low O2 level this morning he had no CP, palpitations, dizziness, SOB, difficulty breathing. Initially his cough started out with moist productive cough that was thick and has since been dry non-productive and improving over last week. He reports that 1 month ago his daughter had a virus which she tested negative for COVID, which caused him to develop productive cough and fatigue. He completed 2 course of doxycycline for 7 days a piece and had a negative CXR 2 weeks ago. he completed a short course of prednisone in which he has since completed. He admits to monitoring his O2 daily on RA with good day being 95-98% RA. He reports never using home O2 but has it PRN and applied 3 L today after noticing his O2 at 87% RA. Since his O2 has been 99% on 3L NC. He reports going to his PCP office yesterday and was prescribed another course of antibiotics. Bactrim in which he took two doses and then stopped due to feeling high and dizzy . He denies any CP, palpitations, SOB, difficulty breathing, fevers, chills. Pt reports having 2 doses of Pfizer. Milady KEEN, TERRANCE [address], [place], [address], [place] [facility] 09/12/2021 20:52:44 11/10/2021 text/html Onset three days Location upper respiratory Duration intermittent Characteristics mild Aggravates/Alleviates no known factors DARELL MARTEL NP [address], [place], [address], [place] [facility] 11/11/2021 12:09:09 01/15/2022 text/html 61 year old male known to but new to provider with history of bowel obstruction, bowel perforation, COPD/O2 as needed mostly at night but today felt needed it so has been on at 4LPM today; being seen today for increased shortness of breath, sweats, headache, increased green/yellow sputum that worsened since this morning. He is currently on a prednisone taper 5mg ending in 3 days that PCP put on 12/23 for acute COPD exacerbations. Yesterday felt pretty good, today abrupt onset. Had COVID in October. Did COVID test today negative. Left sided back pain. Has not seen [employer] in a while but thinks he has an apt coming up. Some relief with updrafts. General body aches. Has not taken tylenol or ibuprofen. Also struggling with constipation and upper abd pain. Has been eating and drinking without vomiting. Struggling with constipation since his obstruction in fall. Taking colace 200mg BID.No longer taking his pantoprazole. Very concerned he is not obstructed again; no vomiting, had a good BM today Jacki Root NP [address], [place], [address], [place] [facility] 01/15/2022 20:02:45 01/16/2022 text/html Mr Butt seen by yesterday for cough, fever , abdominal pain. CBC revealed WBC 28 k with 90 neutrophils, CMP WNL save for K+ of 5.6. Aj was supposed to have a chest xray today but he did not feel well enough to go have the chest xray, he has had 2 doses of his doxycycline, he ss he cannot get fluids in because he continues to have abdominal pain. No vomiting, but has nausea. He has dry cough, no URI sx. His pulse ox on RA is low 90 %, sts he can get it up to 95 % if he takes deep breaths, He sts the O2 has him really dried out and increased nasal congestion if he uses the O2. He used a netti pot today which helped. He sts Diarrhea started today. ANAMARIA Cartagena [address], [place], [address], [place] [facility] 01/16/2022 15:02:36
== END 2025-01-03 08:48 | disposition home or self-care (01) ==
LOC: HO.XRAY 08:47
PROVIDERS: PCP Internal Medicine; Visit Provider Hospitalist
DX: C43.9 Malignant melanoma of skin, unspecified (principal); J43.2 Centrilobular emphysema; R91.8 Other nonspecific abnormal finding of lung field; I44.2 Atrioventricular block, complete; J96.11 Chronic respiratory failure with hypoxia; J44.9 Chronic obstructive pulmonary disease, unspecified
CPT/HCPCS: 71046; 99212

== ENCOUNTER → 2025-01-03 08:50 | Outpatient (BNV) | payer MEDICARE, MEDICAID, SELFPAY | PROVIDERS: PCP Internal Medicine; Visit Provider Radiology Diagnostic Radiology | DX: J84.9 Interstitial pulmonary disease, unspecified (principal); J90 Pleural effusion, not elsewhere classified | CPT/HCPCS: 71046 ==

== ENCOUNTER 2025-01-03 09:34 | Outpatient (AMB) | payer MEDICARE, MEDICAID, SELFPAY ==
--- NOTE | 2025-01-03 09:39 | MHC.OFFVIS ---
Vital Signs 01/03/25 09:40 Height 5 ft 5 in Weight 127 lb 13.89 oz BMI 21.3 BP 118/70 Blood Pressure Location Rt brachial Position Sitting Pulse 85 Pulse Source Pulse Oximeter Pulse Oximetry (%) 98 Oxygen Delivery Method Room Air Intake Visit Reasons: Dyspnea Allergies ciprofloxacin [From Cipro] Allergy (Severe, Verified 01/03/25 09:43) Redness on Face levofloxacin [From Levaquin] Allergy (Severe, Verified 01/03/25 09:43) Swelling in the Joints hydromorphone [From Dilaudid] Adverse Reaction (Intermediate, Verified 01/03/25 09:43) Anxiety HPI Comments Details: The patient is a 64-year-old man with a known history of asthma COPD overlap syndrome. Patient states that he had been sick with his respiratory issues for the last 10 years. He was initially diagnosed with pneumonia. He has had bronchoscopies and also apparently a biopsy in the past. I cannot find the results at [facility]. He has also gone to [place] for further evaluation. He has been on oxygen for his respiratory failure. Currently using inogen. He has had multiple hospitalizations usually add [facility]. He also goes to [facility]. He has had multiple CT scans done for his pulmonary nodules. His last CT scan was done at [facility]. He has been on nebulized therapy as the inhalers have not been effective for him. He recently finished a prednisone taper. He states that his breathing has been a little bit more labored. Moderate severity. The weather has not helped either. He states that he quit smoking many years ago. 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 We did review a CT scan of the chest from 2015 from [facility] demonstrating areas of attenuation, ground-glass opacities along with moderate emphysema. He was asking about the xypher valves and see if he was a candidate for them. 12/23/2022 The patient is here for a hospital follow up visit. He was admitted to [facility] with acute on chronic hypoxic and hypercarbic respiratory failure. He was noted to have CM with acute CHF, EF 15%. Cardiac meds adjusted. PLaced on diuresis. Required BIPAP, although has a hard time tolerating the BIPAP. We did talk about the improtance of non invasive ventilator if he has any evicence of hypercarbia. He was taken off the prednisone and he has been doing ok and he was also taken off the theophylline. HE was placed on digoxin and Entresto, but did not tolerate the entrsto and was changed to an PATRICIA inhibitor which he is tolerating better. He was also treated got a GI infection. We are requesting the discharge summary at this time. 01/08/2023 the patient is here for pulmonary follow-up visit. He continues to have increased work of breathing. He has a maximal respiratory therapy. Had to come off the theophylline because of his other comorbidities. Is based on the very severe COPD and chronic respiratory failure along with his recent admission with hypercarbic respiratory failure to the hospital will start the patient on noninvasive ventilator. The noninvasive ventilator will help him with improving his gas exchange, improved his prognosis and decrease hospitalizations. 03/17/2023 the patient is here for pulmonary follow-up visit. The patient is feeling a lot better. He is working closely with his cardiac status. He is improving and therefore his respiratory status is improving as well. He feels a lot stronger. He is going to have a repeat echocardiogram and may indeed need a defibrillator if his EF continues to be low. In the meantime the patient did get a noninvasive ventilator. Unfortunately tried multiple masks and cannot sleep with it he tried using it during the daytime he did not tolerated. At this point the patient does not want her continue using it. I did recommend he call the [employer] in order for them to pick it up since he is not using it. We will reassess in the future depending on his CO2 if it starts going up at that time if that is the case we will look into restarting noninvasive therapy. Regards pulmonary nodules he is due for CT scan in July. In addition to all this he is trying to wean off the opiates specially because he has had multiple complications because of the opiates including constipation. Will go ahead and refer him to the [facility] in order for him to look for alternative therapies in view of his severe chronic back and neck pain. This will help his respiratory status as well. 08/11/2023 the patient is here for pulmonary follow-up visit. He was recently seen for a COPD exacerbation. He was evaluated back the end of July he was placed on Vantin and also prednisone he did not take prednisone. The is still coughing although the cough is better less productive is still not gain. Moderate severity. The patient did have a chest x-ray without any acute disease at that time. He continues with respiratory therapy. His cardiac status is stable. He has a hard time expectorating. He does have a flutter valve. I did encourage him for him to use it. The patient will go ahead and start Bactrim. If he still having a productive cough I did provide him with sputum cup in order for him to provide. 11/13/2023 the patient is here for a pulmonary follow-up visit. He is finally feeling better. Overall in a much better health state. He has been continue to use his cardioprotective medications and seems to be feeling better from the standpoint. He did recently have an echocardiogram he does not know the results. I am hopeful that his EF has gotten better. In addition to that he has no longer taking prednisone or antibiotics. He is regimen is back to his baseline. His breathing is well. He is using his oxygen with good effect. He continues his IVIG infusions every 4 weeks. The patient does have severe COPD based on his PFTs that he had back in July 2022. Now he has in a good place to start pulmonary rehabilitation. Therefore since it is close to [facility] will send a referral there. He can start rehab and close monitoring specially with underlying cardiac and pulmonary disease. After that he probably can do it on his own. 03/23/2024 the patient is here for a pulmonary follow-up visit. Overall the patient is doing a lot better. He has been stronger from the heart standpoint which is reassuring. He received respiratory medicines are also helping. He has been able to be off the oxygen which those were reassuring. Has multiple surgeries however that are pending. He is having hand surgery and also needs dental surgery and back surgery. Will go ahead and repeat his pulmonary function studies to assess his capacity. His last PFTs very significant for a very severe obstruction. Therefore he ended needs to understand that he is high risk for perioperative pulmonary complications. Therefore all the non invasive alternative options need to be looked into to see if surgery and anesthesia can be avoided altogether. Is surgery seeing only option then the patient is indeed medically optimized to undergo surgery. Will go ahead and repeat his PFTs. The patient is also having some slight discomfort right below the ribcage on the left. Pleuritic in nature. Likely musculoskeletal. I will have him get an x-ray. Also reproducible therefore could be musculoskeletal. The patient does not have any rash. He did get vaccinated for shingles. He will have an x-ray and if he has not getting better in the next several weeks he can always call so we can readdress it. 07/07/2024 the patient is here for a pulmonary follow-up visit. Overall he is doing well. He is staying active. His respiratory status are pretty much baseline. He is using the oxygen with activity with good effect. The patient also has been using all his nebulized therapy. He did require antibiotics several months ago. He did recover fully which is reassuring. He is starting to develop a respiratory illness at this time. Will make sure that he has proper medications available to start therapy if he worsens. He tends to worsen quickly. In the meantime he needs to undergo pulmonary function studies. We had had to cancel him because of lack of availability. But now which should be able to schedule them at this time. Therefore he will continue with current respiratory therapy will follow-up in 3 months after his PFTs. If he develops any worsening issues prior to that he will call for an earlier assessment. 08/24/2024 the patient is here for a pulmonary follow-up visit. Since we last spoke he was diagnosed with pneumonia. He had a CT scan a [facility]. Demonstrated basilar consolidations. In addition to that x-rays demonstrating the same. Left more than right. The patient did have a repeat chest x-ray here [place] about a week ago. I did review. Has not been officially read but I can not appreciate any airspace disease. The appears to be better this time. This is all reassuring. He did complete the antibiotics and he is completing course of prednisone. He did recently start the theophylline. We start him on low-dose. He is going to monitor closely for any cardiac adverse effects especially with his cardiac history. But at this point the patient does have advanced pulmonary disease will trying to provide him with optimize care. If however he can not tolerate theophylline he can stop it. Other options include other alternative respiratory medications that have become available. We also talked about Dupixent. Will go ahead and recheck his eosinophils to see if he is a candidate for that. in addition to that we did talk about lung volume reduction intervention. May be a good candidate for this. I will have him look into it to learn about it a little bit more. He continues to exercise regularly. will also have him get blood work including a blood gas. If his CO2 is elevated will going to talk about a noninvasive ventilator that would also help him with his advanced respiratory failure. The patient will follow-up in a couple months. He is scheduled to have PFTs soon. 10/06/2024 the patient has a telehealth visit today. He is on feeling well so therefore decided to stay home. The patient recently went to a and afterwards he was very tired. He denies any sick contacts at this time. Although he will monitor closely for any worsening symptoms. He continues to have frequent exacerbations and shortness of breath. He did undergo pulmonary function studies which we did review. He still has a very severe obstruction although slightly better than before although he seems to have worsening diffusing capacity. Likely this is resulting in a decreased respiratory reserve in worsening symptoms. The patient has been medically optimized. Will go ahead and see if he is a candidate for Dupixent. Therefore her come in and will can check his eosinophil count. In addition to that will go ahead and check a venous gas. The patient does have worsening respiratory failure so therefore may be a good candidate for noninvasive ventilator to help him with the work of breathing. Potentially decrease exacerbations and decrease hospitalizations. Therefore he will come in for the blood gas when he comes in for the blood work. In addition to that he may be a good candidate for Ohtuvayre this will provide additional bronchodilation of the airways and his limited state. This may provide some relief. The patient will return couple months and will at that point talk about lung volume reduction interventions as well as another option moving forward. 01/03/2025 the patient is here for a pulmonary follow-up visit. He has had a hard time breathing for the last several weeks. He has been taking 10 mg of prednisone that appears to be helping him. He has multiple exacerbations a year. For the last year he has had about 5 already where he has needed prednisone. Be a great candidate for Dupixent at this time. He has had elevated eosinophils up to 300. However, since he has been on prednisone is hard to measure. I will go ahead and see if we can get Dupixent cover for him in order to decrease his exacerbation improve his respiratory status in addition to that we did request Ohtuvayre nebulizer therapy but has not been approved as of yet. He continues right now with the prednisone for now. The patient also will be following up with Cardiology regarding the need for defibrillator. Once the patient is stable from a cardiac status the patient is interested in pursuing evaluation for lung transplantation. Not clear if he will need a heart lung transplantation if he qualifies. The patient also was diagnosed melanoma. That was biopsy-proven. Now he is going to undergo surgery and see the extent of it as well. If there is any evidence of any significant extension then we should try to facilitate a CT scan at an earlier time. Otherwise we can wait till the summer to follow-up after his last CT scan back in 06/07/2024. He did have a chest x-ray which I personally reviewed and demonstrates some interstitial changes, slightly more on the left hemithorax. [facility] Medical History (Updated 01/03/25 @ 21:48 by Paulino Ba MD) Chronic respiratory failure Pleuritic chest pain Pre-op chest exam Chondrocalcinosis Chronic neck and back pain Asthma Asthma-COPD overlap syndrome Asthma FH: bowel obstruction Bronchitis Pulmonary nodules Back pain Dyspnea COPD (chronic obstructive pulmonary disease) Surgical History Hx of colonoscopy History of esophagogastroduodenoscopy (EGD) History of partial colectomy History of hernia repair History of lung biopsy Family History Mother History of lung cancer Social History Household Members: Spouse and Children Housing: House Do you presently have visiting nurse or other home services: No Alcohol intake: former Patient Tobacco Use Status: Former Tobacco user Tobacco use type: Cigarette Years Smoked: 15 years Second Hand Smoke Exposure: No Substance Use Type: Caffiene service: No Current occupational status: disabled Review of Systems Const Denies fatigue, Denies fever(s), Denies headache(s), Denies night sweats and Denies poor appetite ENT Reports Normal hearing present, Denies change in voice, Denies headache(s), Denies lip swelling, Denies mouth pain, Reports nasal congestion, Reports nasal discharge, Reports neck pain and Denies tongue swelling Card Denies chest pain, Reports dyspnea and Reports dyspnea on exertion Resp Denies change in phlegm color, Denies chest congestion, Reports cough, Denies hemoptysis, Denies excessive phlegm production, Denies pain on inspiration, Reports dyspnea, Reports dyspnea on exertion and Reports wheezing GI Denies abdominal pain Musc Denies no additional complaints, Reports back pain and Reports neck pain Skin/Breast Reports lesions Neuro Reports Normal hearing present, Denies Neuro-related abnormal movements and Denies headache(s) Psych Denies no additional complaints Endo Denies fatigue Marcel/Lymph Denies easy bleeding and Denies lymphadenopathy Aller/Immun Denies lip swelling, Denies tongue swelling and Reports wheezing Physical Exam Vital Signs: Last Vital Signs Pulse 85 01/03/25 09:40 BP 118/70 01/03/25 09:40 Pulse Ox 98 01/03/25 09:40 Oxygen Delivery Method Room Air 01/03/25 09:40 BMI result Body Mass Index 21.3 Last Vital Signs Temp 97.1 F 05/05/24 07:30 Pulse 95 05/05/24 09:00 Resp 20 05/05/24 07:43 BP 103/58 L 05/05/24 09:00 Pulse Ox 98 05/05/24 07:30 O2 Del Method Nasal Cannula 05/05/24 07:30 O2 Flow Rate 3 05/05/24 07:30 Oxygen Flow Rate 2 05/04/24 18:06 BMI result Body Mass Index 19.9 Const General: comfortable and alert Orientation/consciousness: patient oriented x3 HEENT General nose exam: Abnormal external nose present and Nasal discharge present Eyes Pupils: Equal, round and reactive pupils present Neck Neck: Yes normal visual inspection, Yes full ROM and Yes no lymphadenopathy Chest Chest palpation & inspection: normal inspection of the chest Resp Effort & Inspection: normal respiratory effort, able to speak in complete sentences and prolonged expiratory phase Auscultation: diminished lung sounds Cardio Rate: regular rate Rhythm: regular rhythm Heart sounds: S1 normal heart sound present and S2 normal heart sound present GI Palpation (GI): Soft to palpation, nontender, no guarding and No Rebound tenderness present Auscultation: normal bowel sounds General: Yes no CVA tenderness Back/Spine/Pelvis Back: no CVA tenderness Skin Lesions: lesion noted Neuro General: patient oriented x3 Cranial nerves: Yes Equal, round and reactive pupils present and Yes Normal hearing present Extrem General: No no pedal edema Assessment & Plan Assessment & Plan (1) COPD (chronic obstructive pulmonary disease): Comment: very severe Code(s): J44.9 - Chronic obstructive pulmonary disease, unspecified Category: Medical Qualifiers: COPD type: emphysema Emphysema type: centrilobular Qualified Code(s): J43.2 - Centrilobular emphysema (2) Dyspnea: Code(s): R06.00 - Dyspnea, unspecified Category: Medical Qualifiers: Dyspnea type: dyspnea on exertion Qualified Code(s): R06.00 - Dyspnea, unspecified (3) Pulmonary nodules: Code(s): R91.8 - Other nonspecific abnormal finding of lung field Category: Medical (4) Cardiomyopathy: Code(s): I42.9 - Cardiomyopathy, unspecified Category: Medical Qualifiers: Cardiomyopathy type: unspecified Qualified Code(s): I42.9 - Cardiomyopathy, unspecified (5) Chronic respiratory failure: Code(s): J96.10 - Chronic respiratory failure, unspecified whether with hypoxia or hypercapnia Category: Medical Qualifiers: Respiratory failure complication: hypoxia Qualified Code(s): J96.11 - Chronic respiratory failure with hypoxia (6) Asthma-COPD overlap syndrome: Code(s): J44.9 - Chronic obstructive pulmonary disease, unspecified Category: Medical (7) Melanoma: Code(s): C43.9 - Malignant melanoma of skin, unspecified Category: Medical Qualifiers: Melanoma location: overlapping sites Qualified Code(s): C43.8 - Malignant melanoma of overlapping sites of skin Plan diuresis as tolerated Continue respiratory therapy: Daliresp, Brovana, Yulperi start Ohtuvayre nebs start Dupixent, with frequest exercerbations RAFAELA as needed continue oxygen 2 L with activity. He does use a POC for portability outside of the home (Inogen) CPT with Acapella valve. Theophylline low dose continue prednisone 10mg daily for now consider Lung volume reduction interventions May need ICD consider referral to [facility] transplant center, for now needs to continue addressing cardiac issues and new skin cancer. follow-up in 2 months Medications: New prednisone 20 mg (2 x 10 mg) PO DAILY 60 tabs 1RF 30 days Coding Level of Care Code Est Pt Level 4 (74219) Complex EM visit Add On G2211 Diagnoses Centrilobular emphysema J43.2 COPD type: emphysema Emphysema type: centrilobular Dyspnea on exertion R06.00 Dyspnea type: dyspnea on exertion Pulmonary nodules R91.8 Cardiomyopathy, unspecified type I42.9 Cardiomyopathy type: unspecified Chronic respiratory failure with hypoxia J96.11 Respiratory failure complication: hypoxia Asthma-COPD overlap syndrome J44.9 Malignant melanoma of overlapping sites C43.8 Melanoma location: overlapping sites Time Spent (min) 20
[2025-01-03 09:40] VITALS: BP 118/70; PULSE 85; O2SAT 98; BMI 21.3
== END 2025-01-03 10:08 | disposition home or self-care (01) ==
LOC: HO.HPS 09:35
PROVIDERS: PCP Internal Medicine; Visit Provider Hospitalist
DX: J43.2 Centrilobular emphysema (principal); R91.8 Other nonspecific abnormal finding of lung field; I42.9 Cardiomyopathy, unspecified; J96.11 Chronic respiratory failure with hypoxia; C43.8 Malignant melanoma of overlapping sites of skin
CPT/HCPCS: 99214; G2211

== ENCOUNTER 2025-03-18 11:30 | Inpatient (IN) | payer MEDICARE, MEDICAID, SELFPAY ==
[2025-03-18] VITALS (16 sets, daily range): BP systolic 113–171; BP diastolic 54–141; PULSE 97–144; RESP 14–35; TEMP 36.8–37.1; O2SAT 92–99; BMI 23.0
--- NOTE | ~2025-03-18 | XR_ITS ---
EXAMINATION: XR CHEST 1 VIEW HISTORY: hypoxia COMPARISON: Comparison is made with the prior examination dated 03/18/2025. FINDINGS: A single AP portable view of the chest performed at 12:46 PM is submitted. The lungs remain hyperinflated, consistent with COPD. No focal airspace opacity is seen. There are surgical clips in the right costophrenic angle. There is no pleural effusion, pneumothorax, or pulmonary vascular congestion. The heart is normal in size. There is degenerative disc disease of the spine. There are old healed bilateral rib fractures. XR/XR chest 1V IMPRESSION: COPD. No acute cardiopulmonary abnormality. Electronically signed by: Champ Pino MD 03/20/2025 01:08 PM EDT RP
--- NOTE | ~2025-03-18 | XR_ITS ---
CLINICAL HISTORY: dyspnea, tachycardia 1 view chest x-ray Comparison: CR/SR - XR CHEST 2V - 01/03/25 09:17 EDT Findings: No consolidation or effusion. Heart size is normal. Multiple chronic right-sided rib fractures. No acute fracture. IMPRESSION: 1. No acute findings. This document has been electronically signed by: Nicky Kimball MD on 03/18/2025 13:19:39
--- NOTE | ~2025-03-18 | CT_ITS ---
CLINICAL HISTORY: LLQ pain and tenderness, bowel changes CT abdomen and pelvis with contrast Comparison: None Findings: Tiny no consolidation or pleural effusion. Moderate pancreatic atrophy. Several tiny right kidney cysts. 3 mm nonobstructive calculus within the upper pole of the left kidney. No hydronephrosis. Unremarkable liver, spleen and adrenal glands. No calcified gallstones. Prior partial proximal colonic resection with ileocolic anastomosis at the level of the ascending colon. Colonic diverticulosis without diverticulitis. No bowel edema or evidence of bowel obstruction. Relative gaseous distention of small bowel with multiple air-fluid levels. There is a small amount of pelvic free fluid. Prostate gland and urinary bladder are unremarkable. Prior appendectomy. The bones are intact. IMPRESSION: 1. Relative distention of small bowel may be physiologic versus secondary to ileus or gastroenteritis. No focal bowel inflammation or evidence of bowel obstruction. 2. There is colonic diverticulosis without diverticulitis. 3. There is a small amount of pelvic free fluid. This document has been electronically signed by: Nicky Kimball MD on 03/18/2025 15:27:37
--- NOTE | 2025-03-18 11:44 | ECG_ITS ---
Test Reason : SOB Blood Pressure : */* mmHG Vent. Rate : 141 BPM Atrial Rate : 141 BPM P-R Int : 128 ms QRS Dur : 98 ms QT Int : 298 ms P-R-T Axes : 79 -71 91 degrees QTcB Int : 456 ms Sinus tachycardia Left axis deviation Abnormal QRS-T angle, consider primary T wave abnormality Abnormal ECG When compared with ECG of 04-May-2024 13:07, T wave inversion less evident in Lateral leads Referred By: Reg Stewart Electronically Signed By: BERTA SAMPSON MD
--- NOTE | 2025-03-18 11:45 | ED.SOB ---
HPI - SOB/Dyspnea General Chief Complaint: Dyspnea Stated Complaint: SOB,HUFF,PROD COUGH,DUONEB GIVEN PER EMS Time Seen by Provider: 03/18/25 11:38 Source: patient Mode of arrival: EMS Limitations: no limitations History of Present Illness ED Provider: Reg Stewart DO HPI Narrative: 64-year-old male with past medical history of COPD with nasal cannula for oxygen as needed at home ( Dr. Ba is his nurse specialist), hypertension, remote history of alcohol and drug use and remote history of tobacco use, perforation and partial colectomy in 2020 with episodic bowel habit changes since that time presents to the ED for wheezing that started last night as well as difficulty breathing and a cough productive of frothy sputum this morning despite taking all of his prescribed inhalers and nebulizers every 4 hours. Patient also reports decreased p.o. intake over the last week with difficulty moving his bowels and cramping bilateral lower abdominal pain, left side greater than right. He has been tolerating p.o. fluids and denies vomiting. He denies fevers or chills. He states he has a history of CHF but denies swelling or pain in his legs. He had administered 20 mg of prednisone at home this morning and was treated with a DuoNeb from EMS prior to arrival. Related Data Home Medications ?Medication ?Instructions ?Recorded ?Confirmed cyclobenzaprine 10 mg tablet 10 mg PO BID PRN Muscle Spasm 11/07/20 08/24/24 docusate sodium 100 mg capsule 200 mg PO BID PRN constipation 06/12/21 08/24/24 methadone 10 mg tablet 10 mg PO BID 12/03/21 08/24/24 cetirizine 10 mg tablet 10 mg PO DAILY Allergy Symptoms 10/31/22 08/24/24 nebulizers 01/08/23 08/24/24 ondansetron 4 mg disintegrating 4 mg PO Q6H PRN nausea/vomiting 01/08/23 08/24/24 tablet testosterone 1.62 % (20.25 mg/1.25 1 packet transdermal DAILY 07/22/23 08/24/24 gram) transdermal gel packet metoprolol succinate 100 mg 100 mg PO DAILY 08/27/23 08/24/24 tablet,extended release 24 hr pantoprazole 40 mg tablet,delayed 40 mg PO DAILY 08/27/23 08/24/24 release duloxetine 30 mg capsule,delayed 30 mg PO DAILY 01/18/24 08/24/24 release denosumab 60 mg/mL subcutaneous 60 mg subcut [id number] 05/04/24 08/24/24 syringe (Prolia) fluocinonide 0.05 % topical cream 1 appl topical BID PRN Rash 05/04/24 08/24/24 meloxicam 15 mg tablet 15 mg PO DAILY PRN low back pain 05/04/24 08/24/24 valacyclovir 500 mg tablet 500 mg PO BID 05/04/24 08/24/24 Previous Rx's ?Medication ?Instructions ?Recorded melatonin 5 mg tablet 5 mg PO BEDTIME for insomnia #90 02/18/24 tabs lidocaine 5 % topical patch 1 patch topical DAILY 30 days #30 03/23/24 (Lidoderm) ea albuterol sulfate 90 mcg/actuation 2 puff inhalation Q4H PRN for 07/07/24 aerosol inhaler wheezing #1 ea arformoterol 15 mcg/2 mL solution 2 ml inhalation BID #120 mL 08/22/24 for nebulization budesonide 0.5 mg/2 mL suspension 0.5 mg (2 mL) inhalation BID 30 08/22/24 for nebulization days #120 mL albuterol sulfate 2.5 mg/3 mL 2.5 mg (3 mL) inhalation Q4H PRN 11/01/24 (0.083 %) solution for nebulization for wheezing #150 mL roflumilast 500 mcg tablet 500 mcg PO DAILY #90 tabs 11/09/24 prednisone 10 mg tablet See Rx Instructions PO DAILY 18 12/01/24 days #63 tabs prednisone 10 mg tablet 20 mg (2 x 10 mg) PO DAILY 30 days 01/03/25 #60 tabs amoxicillin 875 mg-potassium 1 tab PO BID 10 days #20 tabs 01/27/25 clavulanate 125 mg tablet revefenacin 175 mcg/3 mL solution 175 mcg (3 mL) inhalation DAILY 01/27/25 for nebulization (Yupelri) #90 mL doxycycline monohydrate 100 mg 100 mg PO BID 21 days #42 tabs 02/08/25 tablet theophylline 200 mg 200 mg PO Q12H 90 days #180 tabs 02/20/25 tablet,extended release,12 hr Allergies Allergy/AdvReac Type Severity Reaction Status Date / Time ciprofloxacin [From Cipro] Allergy Severe Redness Verified 03/18/25 11:42 on Face levofloxacin [From Levaquin] Allergy Severe Swelling Verified 03/18/25 11:42 in the Joints hydromorphone [From Dilaudid] AdvReac Intermediate Anxiety Verified 03/18/25 11:42 Review of Systems Review of Systems: Yes all other systems are reviewed and are negative [facility] Past Medical History Medical History (Updated 03/18/25 @ 16:27 by Reg Stewart DO) Chronic respiratory failure Pleuritic chest pain Pre-op chest exam Chondrocalcinosis Chronic neck and back pain Asthma Asthma-COPD overlap syndrome Asthma FH: bowel obstruction Bronchitis Pulmonary nodules Back pain Dyspnea COPD (chronic obstructive pulmonary disease) Surgical History Hx of colonoscopy History of esophagogastroduodenoscopy (EGD) History of partial colectomy History of hernia repair History of lung biopsy Family History Family History Mother History of lung cancer Social History Social History Household Members: Spouse and Children Housing: House Do you presently have visiting nurse or other home services: No Alcohol intake: former Patient Tobacco Use Status: Former Tobacco user Tobacco use type: Cigarette Years Smoked: 15 years Smoked in Last 30 Days: No Second Hand Smoke Exposure: No Use of substances other than those prescribed or required for medical reasons: No Substance Use Type: Caffiene Advance Directives: No Advance Directives Information Provided: Yes Do you have a plan to hurt others: No Plan service: No Current occupational status: disabled Physical Exam Vital Signs: Vital Signs: Last Vital Signs Temp 98.7 F 03/18/25 11:40 Pulse 119 H 03/18/25 15:39 Resp 22 H 03/18/25 15:39 BP 119/81 03/18/25 15:39 Pulse Ox 96 03/18/25 15:39 O2 Del Method Room Air 03/18/25 15:39 O2 Flow Rate 4 03/18/25 15:08 BMI result Body Mass Index 23.0 Constitutional: Alert, oriented, Has some trouble speaking full sentences due to respiratory distress HEENT: Normocephalic, atraumatic. Moist mucous membranes Eyes: PERRL, EOMI Neck: Supple, nontender, no JVD Chest: No chest wall tenderness Respiratory: increased work of breathing with mild retractions and tachypnea, diminished breath sounds throughout all lung machado with prolonged expiratory phase Cardio: tachycardic, regular rhythm, no murmur, 2+ radial and DP pulses symmetrically GI: Soft, nondistended, tenderness of right lower quadrant. No other areas of tenderness on exam Back: Normal range of motion, nontender Skin: No rash, no lesions Neuro: Alert and oriented to person, place and time, moves all 4 extremities, no focal deficits Extremities: No swelling or tenderness, full range of motion Psych: Calm, alert and cooperative, appropriate behavior Medications Administered Discontinued Medications Generic Name Dose Route Start Last Admin Trade Name Freq PRN Reason Stop Dose Admin Albuterol Sulfate 7.5 mg/ 0 mg 03/18/25 11:43 03/18/25 11:46 Albuterol/Ipratropium 3 ml INHALE 03/18/25 11:44 1 each ONCE ONE Administration Albuterol Sulfate 2.5 mg/ 0 mg 03/18/25 14:12 03/18/25 14:33 Albuterol/Ipratropium 3 ml INHALE 03/18/25 14:13 1 dose ONCE ONE Administration Doxycycline Monohydrate 100 mg 03/18/25 15:15 03/18/25 15:47 Doxycycline Monohydrate 100 Mg Capsule PO 03/18/25 15:16 100 mg ONCE ONE Administration Acetaminophen 1,000 mg in 100 mls @ 400 mls/hr 03/18/25 13:48 03/18/25 14:54 Ofirmev IV 03/18/25 14:02 Infused ONCE ONE Infusion Iohexol 100 ml 03/18/25 14:14 03/18/25 14:14 Iohexol 350 Mg/Ml 100 Ml Infus..Btl IV 03/18/25 14:15 85 ml ONCE ONE Administration Ketorolac Tromethamine 15 mg 03/18/25 13:48 03/18/25 14:10 Ketorolac Tromethamine 15 Mg/Ml Vial IVPUSH 03/18/25 13:49 15 mg ONCE ONE Administration Prednisone 40 mg 03/18/25 12:33 03/18/25 12:37 Prednisone 20 Mg Tablet PO 03/18/25 12:34 40 mg ONCE ONE Administration Medical Decision Making Medical Decision Making [facility] Narrative: tachycardic and tachypneic pleasant patient presenting with dyspnea, cough, wheezing and abdominal pain with bowel habit changes. Differential diagnosis is broad today with clinical findings consistent with COPD exacerbation. Patient reports some improvement with a DuoNeb here. Provided additional steroid dosing of 40 mg for a total of 60 mg a day. Venous blood gas reassuring as there is no significant hypercapnia or acidosis. I do not suspect pulmonary embolism and this appears to be likely a viral illness. Additionally, the patient has lower abdominal pain and bowel habit changes with difficulty passing stool. I have no suspicion for obstruction as he is tolerating p.o. intake. His abdomen is non peritoneal but given his tenderness, diverticulitis is on the differential and we will be further evaluated with CT imaging. CT imaging shows no acute abnormalities and the patient's repeat abdominal exam is benign. He also feels better and is able to move his bowels while here. He continues to have somewhat increased work of breathing and borderline hypoxia and tachycardia despite several rounds of nebulizers. Therefore, in discussion with hospitalist, the patient will be admitted for observation and likely discussion with his nurse specialist tomorrow. Patient agrees with this plan. Admission/Observation Consideration of admission/observation: Escalation of care including admission/observation considered Lab Data 03/18/25 12:17 03/18/25 12:17 Labs: Lab Results 03/18/25 03/18/25 03/18/25 Range/Units 12:17 12:18 12:23 WBC 9.0 (4.8-10.8) X10*3/uL RBC 4.59 L (4.60-5.80) X10*6/uL Hgb 14.6 (14.0-18.0) g/dl Hct 45.1 (42.0-52.0) % MCV 98.3 H (80.0-98.0) fL MCH 31.8 (27.0-33.0) pg MCHC 32.4 (31.0-36.0) g/dl RDW 13.2 (11.0-16.0) % Plt Count 170 D (160-400) X10*3/uL MPV 10.0 (9.4-12.4) fL Immature Gran % (Auto) 0.8 H (0.0-0.4) % Neut % (Auto) 86.9 H (45-73) % Lymph % (Auto) 6.1 L (20-40) % Emmet % (Auto) 5.7 (2-11) % Eos % (Auto) 0.2 (0-4) % Baso % (Auto) 0.3 (0-2) % Lymph # (Auto) 0.6 L (1.2-4.9) X10*3/uL Emmet # (Auto) 0.5 (0.1-1.2) X10*3/uL Eos # (Auto) 0.0 (0.0-0.4) X10*3/uL Baso # (Auto) 0.0 (0.0-0.2) X10*3/uL Abs Immat Gran (auto) 0.07 H (0.00-0.03) X10*3/uL Absolute Neuts (auto) 7.8 (2.0-8.3) x10*3/uL Absolute Nucleated RBC 0.000 (0.0-0.012) X10*3/uL Nucleated RBC % (auto) 0.0 (0.0-0.2) /100WBC VBG pH 7.35 (7.32-7.43) VBG pCO2 47 mmHg VBG pO2 60 mmHg VBG HCO3 26 (22-26) mmol/L VBG O2 Saturation 86.0 % VBG Base Excess 0.5 mmol/L Sodium 139 (135-145) mmol/L Potassium 3.6 D (3.3-5.1) mmol/L Chloride 104 (96-108) mmol/L Carbon Dioxide 24 (22-29) mmol/L Anion Gap 15 (12-20) BUN 15 (9-16) mg/dL Creatinine 1.19 (0.5-1.4) mg/dL Estim Creat Clear Calc 51.1 Estimated GFR > 60 Random Glucose 116 H (60-115) mg/dL Calcium 9.3 (8.4-10.2) mg/dL Magnesium 2.0 (1.6-2.6) mg/dL Total Bilirubin 0.3 (0.0-1.0) mg/dL AST 36 (5-37) U/L ALT 29 (0-40) U/L Alkaline Phosphatase 58 (39-117) U/L Troponin I High Sens 4.4 (<3.5-35.0) ng/L Total Protein 7.4 (6.5-8.0) g/dL Albumin 3.7 (3.5-5.0) g/dL Urine Color Urine Appearance Urine pH (5.0-9.0) Ur Specific [place] (1.005-1.025) Urine Protein (Neg-Trace) mg/dL Urine Glucose (UA) (Negative) mg/dL Urine Ketones (Negative) mg/dL Urine Blood (Negative) Urine Nitrite (Negative) Ur Leukocyte Esterase (Negative) Influenza Type A (PCR) NEGATIVE (Negative) Influenza Type B (PCR) NEGATIVE (Negative) RSV RNA Qual (PCR) NEGATIVE (Negative) SARS-CoV-2 RNA (RT-PCR) NEGATIVE (Negative) 03/18/25 Range/Units 16:07 WBC (4.8-10.8) X10*3/uL RBC (4.60-5.80) X10*6/uL Hgb (14.0-18.0) g/dl Hct (42.0-52.0) % MCV (80.0-98.0) fL MCH (27.0-33.0) pg MCHC (31.0-36.0) g/dl RDW (11.0-16.0) % Plt Count (160-400) X10*3/uL MPV (9.4-12.4) fL Immature Gran % (Auto) (0.0-0.4) % Neut % (Auto) (45-73) % Lymph % (Auto) (20-40) % Emmet % (Auto) (2-11) % Eos % (Auto) (0-4) % Baso % (Auto) (0-2) % Lymph # (Auto) (1.2-4.9) X10*3/uL Emmet # (Auto) (0.1-1.2) X10*3/uL Eos # (Auto) (0.0-0.4) X10*3/uL Baso # (Auto) (0.0-0.2) X10*3/uL Abs Immat Gran (auto) (0.00-0.03) X10*3/uL Absolute Neuts (auto) (2.0-8.3) x10*3/uL Absolute Nucleated RBC (0.0-0.012) X10*3/uL Nucleated RBC % (auto) (0.0-0.2) /100WBC VBG pH (7.32-7.43) VBG pCO2 mmHg VBG pO2 mmHg VBG HCO3 (22-26) mmol/L VBG O2 Saturation % VBG Base Excess mmol/L Sodium (135-145) mmol/L Potassium (3.3-5.1) mmol/L Chloride (96-108) mmol/L Carbon Dioxide (22-29) mmol/L Anion Gap (12-20) BUN (9-16) mg/dL Creatinine (0.5-1.4) mg/dL Estim Creat Clear Calc Estimated GFR Random Glucose (60-115) mg/dL Calcium (8.4-10.2) mg/dL Magnesium (1.6-2.6) mg/dL Total Bilirubin (0.0-1.0) mg/dL AST (5-37) U/L ALT (0-40) U/L Alkaline Phosphatase (39-117) U/L Troponin I High Sens (<3.5-35.0) ng/L Total Protein (6.5-8.0) g/dL Albumin (3.5-5.0) g/dL Urine Color Yellow Urine Appearance Clear Urine pH 6.0 (5.0-9.0) Ur Specific [place] >= 1.030 H (1.005-1.025) Urine Protein Trace (Neg-Trace) mg/dL Urine Glucose (UA) Negative (Negative) mg/dL Urine Ketones Negative (Negative) mg/dL Urine Blood Negative (Negative) Urine Nitrite Negative (Negative) Ur Leukocyte Esterase Negative (Negative) Influenza Type A (PCR) (Negative) Influenza Type B (PCR) (Negative) RSV RNA Qual (PCR) (Negative) SARS-CoV-2 RNA (RT-PCR) (Negative) Independent Interpretation I performed an independent interpretation of an: EKG Interpretation: Sinus tachycardia at 141 beats per minute, unremarkable intervals, left axis deviation with poor R-wave progression in the precordial leads, no diagnostic ST wave abdomen with some baseline artifact, compared to prior dated 05/04/2024 there are no significant changes. Discharge Plan Discharge Clinical Impression: COPD (chronic obstructive pulmonary disease) Patient Disposition: Admitted As Inpatient Prescriptions: No Action melatonin 5 mg tablet 5 mg PO BEDTIME Qty: 90 2RF budesonide 0.5 mg/2 mL suspension for nebulization 0.5 mg inhalation BID 30 Days Qty: 120 3RF arformoterol 15 mcg/2 mL solution for nebulization 2 ml inhalation BID Qty: 120 3RF albuterol sulfate 2.5 mg /3 mL (0.083 %) solution for nebulization 2.5 mg inhalation Q4H PRN (Reason: for wheezing) Qty: 150 0RF roflumilast 500 mcg tablet 500 mcg PO DAILY Qty: 90 3RF prednisone 10 mg tablet See Rx Instructions PO DAILY 18 Days Qty: 63 0RF Rx Instructions: PO daily; Take 6 tabs daily x 3 days, then 5 tabs x 3 days, then 4 tabs x 3 days, then 3 tabs x 3 days, then 2 tabs daily x 3 days, then 1 tab x 3 days to complete. amoxicillin-pot clavulanate 875-125 mg tablet 1 tab PO BID 10 Days Qty: 20 0RF Yupelri 175 mcg/3 mL solution for nebulization 175 mcg inhalation DAILY Qty: 90 3RF doxycycline monohydrate 100 mg tablet 100 mg PO BID 21 Days Qty: 42 0RF theophylline 200 mg tablet extended release 12 hr 200 mg PO Q12H 90 Days Qty: 180 1RF metoprolol succinate 100 mg tablet extended release 24 hr 100 mg PO DAILY pantoprazole 40 mg tablet,delayed release (DR/EC) 40 mg PO DAILY meloxicam 15 mg tablet 15 mg PO DAILY PRN (Reason: low back pain) valacyclovir 500 mg tablet 500 mg PO BID fluocinonide 0.05 % cream 1 appl topical BID PRN (Reason: Rash) Prolia 60 mg/mL syringe 60 mg subcut [id number] cyclobenzaprine 10 mg tablet 10 mg PO BID PRN (Reason: Muscle Spasm) docusate sodium 100 mg capsule 200 mg PO BID PRN (Reason: constipation) methadone 10 mg tablet 10 mg PO BID cetirizine 10 mg tablet 10 mg PO DAILY (DME) nebulizers Misc See Rx Instructions .Route Rx Instructions: As directed ondansetron 4 mg tablet,disintegrating 4 mg PO Q6H PRN (Reason: nausea/vomiting) lidocaine [Lidoderm] 5 % adhesive patch,medicated 1 patch topical DAILY 30 Days Qty: 30 4RF Rx Instructions: leave on most painful area for up to 12 hrs albuterol sulfate 90 mcg/actuation HFA aerosol inhaler 2 puff inhalation Q4H PRN (Reason: for wheezing) Qty: 1 11RF prednisone 10 mg tablet 20 mg PO DAILY 30 Days Qty: 60 1RF duloxetine 30 mg capsule,delayed release(DR/EC) 30 mg PO DAILY testosterone 1.62 % (20.25 mg/1.25 gram) gel in packet 1 packet transdermal DAILY Print Language: Peruvian
[2025-03-18] MEDS: Albuterol Sulfate 7.5 MG, Albuterol/Iprat 2.5/0.5MG 3 ML 3 ML INHALE (11:46)
[2025-03-18 12:23] LABS: MANUAL DIFF FLAG NO
[2025-03-18 12:24] LABS: Venous Blood Gas Refer to POC result
[2025-03-18 12:27] LABS: VBG Base Excess 0.5 mmol/L; VBG HCO3 26 mmol/L (22-26); VBG pCO2 47 mmHg; VBG pH 7.35 (7.32-7.43); VBG pO2 60 mmHg
[2025-03-18 12:37] LABS: Basophils Percent Auto 0.3 % (0-2); Eosinophils Percent Auto 0.2 % (0-4); Hematocrit 45.1 % (42.0-52.0); Hemoglobin 14.6 g/dl (14.0-18.0); Imm Gran Abs Auto 0.07 X10*3/uL (0.00-0.03); Imm Gran Pct Auto 0.8 % (0.0-0.4); Lymphocytes Absolute Auto 0.6 X10*3/uL (1.2-4.9); Lymphocytes Percent Auto 6.1 % (20-40); Mean Corpuscular HGB Conc 32.4 g/dl (31.0-36.0); Mean Corpuscular Hemoglobin 31.8 pg (27.0-33.0); Mean Corpuscular Volume 98.3 fL (80.0-98.0); Monocytes Absolute Auto 0.5 X10*3/uL (0.1-1.2); Monocytes Percent Auto 5.7 % (2-11); Neutrophils Absolute Auto 7.8 x10*3/uL (2.0-8.3); Neutrophils Percent Auto 86.9 % (45-73); Platelet Count 170 X10*3/uL (160-400); Red Blood Count 4.59 X10*6/uL (4.60-5.80); Red Cell Distribution Width 13.2 % (11.0-16.0)
[2025-03-18] MEDS: predniSONE 20 MG TABLET 40 MG PO (12:37)
[2025-03-18 12:47] LABS: Alanine Aminotransferase 29 U/L (0-40); Albumin Level 3.7 g/dL (3.5-5.0); Alkaline Phosphatase 58 U/L (39-117); Anion Gap 15 (12-20); Aspartate Amino Transferase 36 U/L (5-37); Bilirubin Total 0.3 mg/dL (0.0-1.0); Blood Urea Nitrogen 15 mg/dL (9-16); Calcium 9.3 mg/dL (8.4-10.2); Carbon Dioxide 24 mmol/L (22-29); Chloride 104 mmol/L (96-108); Creatinine Clr Calc Pharmacy 51.1; Estimated Glomerular Filt Rate > 60; Glucose Random 116 mg/dL (60-115); Potassium 3.6 mmol/L (3.3-5.1); Sodium 139 mmol/L (135-145); Total Protein 7.4 g/dL (6.5-8.0)
[2025-03-18 12:55] LABS: Troponin-I High Sensitivity 4.4 ng/L (<3.5-35.0)
--- OUTSIDE RECORDS SUMMARY | 2025-03-18 13:10 | XMS_ITS | Data Portability ---
Author Organization [place] - [facility] Address [address] [place] [address] Care Team Providers Care Plaster Machine Tender Name Role Phone TRINIDAD WYMAN Primary Care Provider [phone] ZAIDA ARAGON Rehabilitation Director Assessment Encounter Date Assessment Date Assessment LastModified by Organization Details LastModified Time 08/23/2021 08/23/2021 Proper Personal Protective Equipment (PPE), including gloves, gown, shoe covers, eye protection and masks were donned and doffed appropriately and all equipment cleaned using approved technique with germicidal disposable wipes prior to and after care of this patient according to [facility]'s infection prevention protocols. Overview/History: 61 yo male [...] I have accessed patient records on the [employer]. This information was pertinent in my medical decision making today. [email or web address] Not available 08/23/2021 15:53:20 09/12/2021 09/12/2021 Overview/History [...] after care of this patient according to [facility]'s infection prevention protocols. Time On Scene with [...] after care of this patient according to [facility]'s infection prevention protocols. Time On Scene with Patient: 00:27:04 [email or web address] Not available 11/11/2021 12:06:04 01/15/2022 01/15/2022 Overview/History [...] narcotics) with dull percussion lower quadrants. No [place] or pain to palpation. DDx considered, but not limited to: Acute on chronic COPD exacerbations Pneumonia: fever, cough prod thick dowling/green Influenza: neg rapid Viral URI Constipation: will check KUB Obstruction/ileus/ perforation due to history and concern. Low probability but checking KUB for stool as well Work up/Results: CBCD, CMP sent to [facility]; Rapid flu neg CXR, KUB to be [...] after care of this patient according to [facility]'s infection prevention protocols. [email or web address] Not available 01/15/2022 18:33:51 01/16/2022 01/16/2022 Time On Scene with Patient: 00:32:07 - Referred - Point of Care: Emergency Department [email or web address] Not available 01/16/2022 14:47:54 Plan of Treatment Reminders Order Date Submit Date Provider Last Modified By Organization Details Last Modified Time Details Appointments None recorded. Lab rapid flu (A+B) 2021 022 deidre Spr - Home, [address] [place] [address], [address], 17:59:25 CBC w/ auto diff - Collected by [facility] ealt 2021 LEROY [facility] (Centralized Electronic Ordering - All Locations), Patient Can Go To The Location Of Their Choice, [address] 00:19:19 CMP, serum or plasma 2021 LEROY [facility] (Centralized Electronic Ordering - All Locations), Patient Can Go To The Location Of Their Choice, [address] 00:52:42 rapid SARS CoV + SARS CoV 2 Ag, QL IA, respirato ry specimen 2020 [facility] - Home, [address] [place], [address], 15:40:14 unlisted lab - covid-19 (novel coronavir us) PCR 2020 [email or web address] [facility] (Centralized Electronic Ordering - All Locations), Patient Can Go To The Location Of Their Choice, [address] 13:54:49 Referral None recorded. Procedures None recorded. Surgeries None recorded. Imaging XR, abdomen 2021 [facility], [address] [place], [address], 06:47:37 XR, chest, 2 view 2021 [facility], [address] [place], [address], 2 06:52:34 XR, chest, 2 view - pt has stage 4 COPD 2021 [facility], [address] [place], [address], 2 11:29:01 XR, chest, 2 view - pending COVID PCR 2020 [facility] ([facility] [address] , [address], [place], [address], 13:34:12 XR, chest, 2 view - Ordered by [facility]; R/O rib fractures left chest around 7th/8th ribs, chronic bronchiti s, vs acute PNA vs pulmonary contusion 2020 021 [email or web address] [facility], [address] [place], [address], 16:45:10 Medication Orders doxycycli ne hyclate 100 mg capsule 2021 022 [facility]2024, [address] [place], [address], 20:02:32 prednison e 20 mg tablet 2021 022 [facility]2024, [address] [place], [address], 2 16:56:55 prednison e 10 mg tablet 2021 022 [facility]2024, [address] [place], [address], 16:57:00 prednison e 10 mg tablet 2020 021 [facility]2024, [address] [place], [address], 2 16:57:00 doxycycli ne hyclate 100 mg capsule 2020 [email or web address] [address] [place], [address], 15:08:02 prednison e 20 mg tablet 2020 021 [facility]2024, [address] [place], [address], 03/30/202 2 16:56:55 Patient TargetsNo targets recorded. Patient Instructions Encounter Date Encounter Id Patient Instructions Last Modified By Organization Details Last Modified Time 08/23/2021 [id number] Inhaler Instructions Before use, you need to [...] after cleaning actually helps it work better. [email or web address] Not available 08/23/2021 14:38:30 09/12/2021 [id number] Thank you for yo ur visit with [facility] today. We cannot always find the exact cause of your symptoms during your initial visit. Please follow up with your primary care provider or specialist within 2-3 days to be rechecked or seek medical attention if your symptoms do not go away or get worse. If you develop any new or worsening symptoms and need after hours care, please go to nearest ER and/or call 911. If you have additional concerns or develop a change in your condition between 8am-10pm, please call [facility] at [phone] to help navigate your care. Not available 09/12/2021 20:52:18 01/15/2022 [id number] -Wrote all above instruction out due to [...] PCR covid-19 PCR result (neg) NEGAT ARABELLA 2019- novel Coron aviru s (2018 -nCoV ) not detec kingsley by real- time RT-PC R. Note: If clini ted suspi cion for COVID -19 is high, snoya nue to maint ain preca ution s and consi tashi repea t testi ng. Resul t repor [facility] to the [facility]. To preve nt error s in diagn [...] perfo rmed by real time PCR [facility] [employer] SARS- CoV-2 test. Not Available [facility] (Centralized Electronic Ordering - All Locations) Patient Can Go To The Location Of Their Choice, [address] 09/23/2021 15:12:17 09/12/20 21 09/13/2021 COVID -19 (NOVE L CORON AVIRU S) PCR covid-19 PCR specimen source NASAL Not Available [facility] (Centralized Electronic Ordering - All Locations) Patient Can Go To The Location Of Their Choice, [address] 09/23/2021 15:12:17 09/12/20 21 09/12/2021 rapid SARS CoV + SARS CoV 2 Ag, QL IA, respi rator y speci men Covid-19 (ref: neg) negati ve Not Available Spr - Home [address] [place], [address], 09/12/2021 15:39:33 09/12/20 21 09/12/2021 rapid SARS CoV + SARS CoV 2 Ag, QL IA, respi rator y speci men Control Visual ized/V alid Not Available Spr - Home [address] [place], [address], 09/12/2021 15:39:33 09/12/20 21 09/12/2021 rapid SARS CoV + SARS CoV 2 Ag, QL IA, respi rator y speci men Location [facility], [address] [place] [address], [phone] Not Available Spr - Home [address] [place], [address], 09/12/2021 15:39:33 09/12/20 21 09/12/2021 rapid SARS CoV + SARS CoV 2 Ag, QL IA, respi rator y speci men Race & Ethnicity Other White Not Available Spr - Home [address] [place], [address], 09/12/2021 15:39:33 09/12/20 21 09/12/2021 rapid SARS CoV + SARS CoV 2 Ag, QL IA, respi rator y speci men Language Englis h Not Available Spr - Home [address] [place], [address], 09/12/2021 15:39:33 01/16/2001/15/2022 COMPL ETE CBC WITH [...] 01/16/2022 00:19:01/16/2001/15/2022 COMPL ETE CBC WITH DIFF plt 357 [...] 00:19:19 01/16/2001/15/2022 COMPL ETE CBC WITH DIFF MPV 9.9 fL (9.4-1 2.4) Not Available [facility] (Centralized Electronic Ordering - All Locations) Patient Can Go To The Location Of Their Choice, 01/16/2022 00:19:01/16/2001/15/2022 COMPL ETE CBC WITH DIFF automated NRBC 0.0 #/100 _WBC' s Not Available [facility] (Centralized Electronic Ordering - All Locations) Patient Can Go To The Location Of Their Choice, 01/16/2022 00:19:01/16/2001/15/2022 COMPL ETE CBC WITH DIFF abs. NRBC 0.0 K/mm3 Not Available [facility] (Centralized Electronic Ordering - All Locations) Patient Can Go To The Location Of Their Choice, 01/16/2022 00:19:01/16/2001/16/2022 COMPL ETE CBC WITH DIFF neut # [...] The Location Of Their Choice, 01/16/2022 00:19:19 01/16/20 22 01/16/2022 COMPL ETE CBC WITH DIFF eo # [...] ve Not Available Spr - Home [address] [place], [address], 01/15/2022 17:36:50 01/16/20 22 01/15/2022 rapid flu (A+B) Flu B (ref: neg) negati ve Not Available Spr - Home [address] [facility], [place], [address], 01/15/2022 17:36:50 01/16/20 22 01/15/2022 rapid flu (A+B) Control Visual ized/V alid Not Available Spr - Home [address] [facility], [place], [address], 01/15/2022 17:36:50 01/16/20 22 01/15/2022 rapid flu (A+B) Location [facility], [address] [facility], [place] [address], [phone] Not Available Spr - Home [address] [facility], [place], [address], 01/15/2022 17:36:50 08/26/20 21 08/26/2021 XR, chest , 2 view No observ ation record ed. [facility] Sched[facility] (Inpatient) [address] [place], [address], 08/26/2021 11:43:00 09/13/20 21 09/13/2021 XR, chest , 2 view No observ ation record ed. [facility] ([facility]) [address] , [address], [place], [address], 09/15/2021 12:49:20 11/12/19 22 11/11/2021 XR, chest , 2 view No observ ation record ed. [email or web address] [facility] [address] [place], [address], 11/14/2021 18:55:38 01/22/20 22 01/20/2022 XR, abdom en No observ ation record ed. [email or web address] Not Available 07/2022 14:38:41 01/22/20 22 01/20/2022 XR, chest , 2 view No observ ation record ed. [email or web address] [facility] (Imaging) [address], [place], [address], 01/26/2022 14:38:46 Result Notes None recorded. Problems Name Problem SNOMED Code Status Onset Date Resolution Date Notes Provider Name and Address Organization Details Recorded Time Hypertensive disorder 74938024 Active 2018 FANNY LINARES NP [address], [facility], [address], [place] [facility] 9 20:30:11 Problem Notes None recorded. Procedures Surgical History Date Name Laterality Status Provider Name and Address Organization Details Recorded Time 9 IV Start Procedure - completed ANAMARIA ALFARO [address], [place], [address], [place] [facility] 07/10/2019 21:56:04 9 IV Start Procedure - completed DENISE SCOTT NP [address], [place], [address], [place] [facility] 06/18/2019 16:39:55 9 Nebulizer treatment - completed DENISE SCOTT NP [address], [place], [address], [place] [facility] 06/19/2019 00:03:30 fixation of intestine completed Milady KEEN NP [address], [place], [address], [place] [facility] 09/12/2021 15:09:52 Imaging Results None recorded. Procedure Notes None recorded. Medical Equipment None Reported. Allergies Allergen ID Allergen Name Allergen Category Reaction Reaction Severity Criticality Documentation Date Start Date Code Code System Note Provider Name and Address Organization Details Recorded Time 597123 Cipro medicatio n Not available Not available Not available 09/12/202164638 3 RxNorm Milady KEEN, TERRANCE [address], [facility], [address], [place] [facility] 15:06:28 145911 Levaquin medicatio n Not available Not available Not available 09/12/2021 23136 2 RxNorm Milady KEEN, ORTHOTIC TECHNICIAN [address], [facility] [place], [address], [place] [facility] 15:06:39 930913 Bactrim medicatio n Not available Not available Not available 09/12/2021 10676 9 RxNorm dizzi ness Milady KEEN, ORTHOTIC TECHNICIAN [address], [facility] [place], [address], [place] [facility] 15:32:53 [...] Not Available Not Available BD Regular Bevel Baldwin 18 gauge x 1 09/12 completed Not [...] Available No t Available Vitals Date Recorded Heart rate Body temperature Oxygen [...] [degF] 138 mm[Hg] 90 mm[Hg] Not Available [facility] 2 16:59:38 Date Recorded Body temperature Oxygen saturation Oxygen saturation in Arterial blood by Pulse oximetry Heart rate Respiratory rate Systolic blood pressure Diastolic blood pressure Provider Name and Address Organization Details Last Updated DateTime 2 98.8 [degF] 93 % 93 % 110 /min 20 /min 118 mm[Hg] 82 mm[Hg] Not Available [facility] 2 14:22:28 Date Recorded Respiratory rate Body temperature Oxygen saturation Oxygen saturation in Arterial blood by Pulse oximetry Heart rate Systolic blood pressure Diastolic blood pressure Provider Name and Address Organization Details Last Updated DateTime 1 16 /min 97.8 [degF] 95 % 95 % 80 /min 124 mm[Hg] 78 mm[Hg] Not Available [facility] 1 14:44:36 Date Recorded Oxygen saturation Oxygen saturation in Arterial blood by Pulse oximetry Provider Name and Address Organization Details Last Updated DateTime 09/12/2021 95 % 95 % Milady KEEN NP [address], [place], [address], [place] [facility] 09/12/2021 20:20:55 Date Recorded Respiratory rate Oxygen saturation Oxygen saturation in Arterial blood by Pulse oximetry Inhaled oxygen flow rate Heart rate Body temperature Systolic blood pressure Diastolic blood pressure Provider Name and Address Organization Details Last Updated DateTime 1 18 /min 99 % 99 % 3 L/min 90 /min 97.6 [degF] 122 mm[Hg] 80 mm[Hg] Not Available [facility] 1 15:17:24 Social History Question Answer Notes LastModified by Organizat ion Details LastModified Time Tobacco Smoking Status Former Smoker FANNY LINARES, TERRANCE [address], [place], [address], [place] [facility] 02/14/2019 20:30:34 Do You Have An Advance Directive? Yes Information not available 02/14/2019 What Is Your Code Status? Full Code [...] Yes Information not available 09/12/2021 Marital Status Informatio n not available 02/14/2019 What Was The Date Of Your Most Recent Tobacco Screening? 09/12/2021 Information not available 09/12/2021 Has Tobacco Cessation Counseling Been Provided? No Information not available 02/14/2019 How Many Years Have You Smoked Tobacco? 6 Quit 31 Years Ago Information not available 09/12/2021 Sex: Unknown Functional Status Question Answer Note LastModified by Organizat ion Details LastModified Time Do you use any illicit or recreational drugs? No Information not available 09/12/2021 Do you or have you ever used any other forms of tobacco or nicotine? No Information not available 09/12/2021 What is your level of alcohol consumption? None Information not available 09/12/2021 Mental Status None recorded. Family History Relationship Description Onset Age of this Age Resolved Age Notes LastModified by Organization Details LastModified Time Father Diabetes mellitus [email or web address] Not available 02/14 20:30:22 Mother Malignant neoplasm of lung Not available 09/12 15:33:52 Medical History Condition Response Diabetes N Coronary Artery Disease N CHF N Parkinson's Disease N Cancer Y Stroke N Dementia N Asthma N Hypothyroidism N Depression N COPD Y High Cholesterol N Rheumatoid Arthritis N Pulmonary Embolism N Hypertension Y A-fib N Osteoporosis N Kidney Disease N Past Encounters Encounter ID Performer Location Encounter Start Date Encounter Closed Date Diagnosis/Indication Diagnosis SNOMED-CT Code Diagnosis ICD10 Code Diagnosis Note [id number] FANNY LINARESTERRANCE [facility] - [facility] [address] [place] [address] 02/14/2019 20:20:29 02/15/2019 13:19:41 Strain of neck muscle 113054878 S16.1XXA [id number] DENISE SCOTT ORTHOTIC TECHNICIAN [facility] - [facility] [address] [place] [address] 06/18/2019 14:19:58 06/21/2019 14:15:53 Dyspnea 690612013 R06.02 Acute exac erbation of chronic obstructive pulmonary disease 138469935 J44.1 [id number] DENISE SONIA ORTHOTIC TECHNICIAN [facility] - [facility] [address] [place] [address] 06/25/2019 13:50:21 06/26/2019 11:26:51 Dyspnea 913971892 R06.02 Cough 51672021 R05 chronic Anxiety 33957696 F41.9 takes lorazepam. May be increased given prednisone use. [id number] ANAMARIA ALFARO [facility] - [facility] [address] [place] [address] 06/29/2019 20:09:41 06/30/2019 13:56:44 Acute exacerbation of chronic obstructive pulmonary disease 325089339 J44.1 [id number] BERONICA HU [place] [facility] - [facility] [address] [place] [address] 07/10/2019 10:23:10 07/11/2019 11:32:34 Pneumonia 065699434 J18.9 Headache 80386183 R51 Mild dehydration 3652009 119 108 E86.0 Acute exac erbation of chronic obstructive pulmonary disease 178949456 J44.1 [id number] BERONICA HU [place] [facility] [address] [place] [address] 11/03/2019 15:07:16 11/04/2019 12:01:15 Impacted cerumen of bilateral ears 5156703319 320305 H61.23 [id number] ANAMARIA JOHNSON [facility] [address] [place] [address] 02/12/2021 16:23:46 02/13/2021 14:31:47 Acute appendicitis 90067609 K35.80 [id number] VERONICA BIANCHI, ORTHOTIC TECHNICIAN [facility] - [address] [place] [address] 08/23/2021 14:35:56 08/29/2021 12:47:06 Acute exacerbation of chronic obstructive pulmonary disease 552474243 J44.1 Rib pain 166620280 R07.8 1 8th to 9th rib on the left [id number] Milady KEEN, ORTHOTIC TECHNICIAN [facility] - [facility] [address] [place] [address] 09/12/2021 14:59:32 09/18/2021 12:05:22 Exposure to SARS-CoV-2 889733539 Z20.822 Chronic ob structive pulmonary disease 80629095 J44.9 Postviral cough 76208547 4 R05.9 previously completed 2 courses of doxycyclin e 100 mg PO BID x 7 daysthen took 2 doses of bactrim that he started yesterday but stopped after feeling dizzy and high Exposure t o communicable disease 463952561 Z20.822 [id number] DARELL MARTEL NP [facility] - [facility] [address] [place] [address] 11/10/2021 16:21:10 11/13/2021 08:53:23 Acute exacerbation of chronic obstructive pulmonary disease 522029474 J44.1 [id number] Jacki Root NP [facility] - HOME [address] [place] [address] 01/15/2022 16:53:35 01/16/2022 13:47:02 Fever 937637085 R50.9 Dyspnea 620916043 R06.00 Acute exac erbation of chronic obstructive pulmonary disease 439740383 J44.1 Constipation 09755231 K5 9.00 [id number] ANAMARIA Cartagena [facility] - [facility] [address] [place] [address] 01/16/2022 13:42:37 01/18/2022 11:32:31 Acute exacerbation of chronic obstructive pulmonary disease 234831363 J44.1 Aj has had 2 doses doxycyclin e, his WBC count was 28 k, he did not make it today to have his chest xray, therefore he will go to [facility] ED for eval. I did call for them to expect, and gave them blood results. i also wrote it down and gave to Aj to give to triage. Pt. was escalated. Health Concerns Section Related Observation LastModified by Organization Detai ls LastModified Time None Recorded Concern Status LastModified by Organization Details LastModified Time None Recorded Advance Directives Directive Y: Payers Insurance Date Sequence Insurance Name Policy Number Policy Cloud Covered Member ID Cloud Member ID Guarantor Name 08/23/2021 1 *SELF PAY* Altaf Butt [id number] Aj Butt 08/23/2021 1 [place] [facility] Altaf Butt [id number] Aj Butt 08/23/2021 1 [place] [facility] Aj Butt [id number] Aj Butt 08/23/2021 2 [place] [facility] Altaf Butt [id number] Aj Butt 08/23/2021 1 [place] [facility] Altaf Butt [id number] Aj Butt 01/16/2022 1 [place] [facility] Aj Butt [id number] Aj Butt 08/23/2021 1 *SELF PAY* Aj Butt [id number] Aj Butt 01/20/2022 2 [place] [facility] Aj Butt [id number] Aj Butt Notes Date Note Type Note [...] vomiting or diarrhea. VERONICA BIANCHI, TERRANCE [address], [place], [address], [place] [facility] 08/23/2021 15:56:29 09/12/2021 text/html This is a thin 7 0 year old male, who is chronically ill, with PMH of CVID receiving IVIG infusions every 28 days, with end stage COPD, HTN, OA, anxiety, neuropathy, known to DH new to provider, seeking further evaluation after [...] reports having 2 doses of Pfizer. Milady KEEN NP [address], [place], [address], [place] [facility] 09/12/2021 20:52:44 11/10/2021 text/html Onset three days Location upper respiratory Duration intermittent Characteristics mild Aggravates/Alleviates no known factors DARELL MARTEL NP [address], [place], [address], [place] [facility] 11/11/2021 12:09:09 01/15/2022 text/html [...] Left sided back pain. 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 ANAMARIA Cartagena [address], [place], [address], [place] [facility] 01/16/2022 15:02:36
[2025-03-18 13:13] LABS: Influenza A PCR NEGATIVE (Negative); Influenza B PCR NEGATIVE (Negative); Resp Syncy Virus RNA Qual PCR NEGATIVE (Negative); SARS COV2 PCR INHOUSE NEGATIVE (Negative)
[2025-03-18] MEDS: Acetaminophen 1,000 MG/100 ML PIGGYBACK 400 MG IV (14:10)
[2025-03-18] MEDS: Ketorolac Tromethamine 15 MG/ML VIAL IVPUSH (14:10)
[2025-03-18] MEDS: iohexoL 350 MG/ML 100 ML INFUS..BTL IV (14:14)
[2025-03-18] MEDS: Albuterol Sulfate 2.5 MG, Albuterol/Iprat 2.5/0.5MG 3 ML 3 ML INHALE (14:33)
--- NOTE | 2025-03-18 14:42 | PC.NURSE ---
PT's IV infiltrated in CT scan during contrast injection, edger technician placed new 22 in L hand. Previous IV removed, Warm pack placed/wrapped w/ Kerlix, elevated on pillow.
--- NOTE | 2025-03-18 14:49 | PC.NURSE ---
HR sustaining 140's, patient titrated up to 4L requesting more steroids, provider Dr. Stewart made aware.
[2025-03-18] MEDS: Doxycycline Monohydrate 100 MG CAPSULE PO (15:47)
[2025-03-18 16:14] LABS: Appearance Urine Clear; Color Urine Yellow; Glucose Urine UA Negative (Negative); Leukocyte Esterase Urine Negative (Negative); Nitrite Urine Negative (Negative); Specific Gravity - Urine >= 1.030 (1.005-1.025); Urine Blood Negative (Negative); Urine Ketones Negative (Negative); Urine Protein Trace mg/dL (Neg-Trace)
[2025-03-18 16:29] LABS: Amphetamine Screen Urine Not Detected (Not Detect); Barbiturates, Urine Not Detected (Not Detect); Benzodiazepines Screen Urine Not Detected (Not Detect); Buprenorphine Scr Not Detected (Not Detect); Cannabinoid Screen Urine Not Detected (Not Detect); Cocaine Screen Urine Not Detected (Not Detect); Fentanyl, urine Not Detected (Not Detect); Methadone Screen, Urine Positive (Not Detect); Opiate Screen Urine Not Detected (Not Detect); Oxycodone Screen Urine Not Detected (Not Detect); Phencyclidine Screen Urine Not Detected (Not Detect)
--- NOTE | 2025-03-18 17:04 | PC.NURSE ---
Patient SB assist to commode, significantly worse [facility]
--- NOTE | 2025-03-18 17:15 | P.HPHOSP_ITS ---
History of Present Illness Date of Service: 03/18/25 Attending physician on admission: Apoorva Pierce Chief Complaint: SOB Pt is a 64-year-old male with a PMH significant for?chronic hypoxic respiratory failure, asthma/COPD overlap syndrome on 3L home O2 p.r.n., HFrEF, GERD, and GERD who presents to the ED with?SOB, difficulty breathing, and DUARTE that began last night. Pt with a long hx of significant COPD and multiple exacerbations requiring hospitalization, follows with Dr. Ba in pulmonology. Pt reports felt yesterday like he was having a COPD exacerbation so increased his inhaler use and called PCP who prescribed prednisone and oral antibiotics. Patient's has been sick with URI-type symptoms. Pt reports has had increased nonproductive cough. No fever or chills. This morning pt had four home nebulizer treatments to little effect. Continued to experience symptoms so called EMS to bring to the hospital for further evaluation. Pt also complains of diffuse abdominal discomfort with intermittent and alternating constipation turning to diarrhea that has been occurring since colon resection and 01/2021, but worsening the past 3-4 weeks. Denies chest pain/pressure, palpitations. No fever, chills, nausea, vomiting. In the ED pt was tachycardic up to 144, tachypneic up to 35, and stable BP. Satting at 96% on 4 L NC. Labs were grossly unremarkable and around baseline for pt. No leukocytosis. Stable H&H. No significant electrolyte abnormalities. Renal and hepatic function WNL. Initial troponin negative. UA negative for UTI. CXR showed no acute findings. CT?of abdomen and pelvis negative for acute abdomen. No inflammation or bowel obstruction, though did show relative distention that may be physiologic vs secondary to ileus or gastroenteritis. EKG demonstrated sinus tachycardia of 141 without evidence of significant ST elevations or depressions. Pt was treated in the ED with DuoNebs, prednisone, acetaminophen, ketorolac, and doxycycline. Pt is admitted to the hospital under observation for treatment and further evaluation of COPD exacerbation not sufficiently responsive to ED therapies. Review of Systems 2 Review of Systems: Negative except for that which is stated in the HPI. [facility] Medical History Chronic respiratory failure Pleuritic chest pain Pre-op chest exam Chondrocalcinosis Chronic neck and back pain Asthma Asthma-COPD overlap syndrome Asthma FH: bowel obstruction Bronchitis Pulmonary nodules Back pain Dyspnea COPD (chronic obstructive pulmonary disease) Family History Mother History of lung cancer Surgical History Hx of colonoscopy History of esophagogastroduodenoscopy (EGD) History of partial colectomy History of hernia repair History of lung biopsy Social History Household Members: Spouse and Children Housing: House Do you presently have visiting nurse or other home services: No Alcohol intake: former Patient Tobacco Use Status: Former Tobacco user Tobacco use type: Cigarette Years Smoked: 15 years Smoked in Last 30 Days: No Second Hand Smoke Exposure: No Use of substances other than those prescribed or required for medical reasons: No Substance Use Type: Caffiene Advance Directives: No Advance Directives Information Provided: Yes Do you have a plan to hurt others: No Plan Nutrition Risks: Gastrointestinal Malabsorption and Poor intake 0-25% >4 days service: No Current occupational status: disabled Meds Allergies Allergy/AdvReac Type Severity Reaction Status Date / Time ciprofloxacin [From Cipro] Allergy Severe Redness Verified 03/18/25 11:42 on Face levofloxacin [From Levaquin] Allergy Severe Swelling Verified 03/18/25 11:42 in the Joints hydromorphone [From Dilaudid] AdvReac Intermediate Anxiety Verified 03/18/25 11:42 Home Medications ?Medication ?Instructions ?Recorded ?Confirmed ?Last Taken ?Type cyclobenzaprine 10 mg tablet 10 mg PO BID PRN Muscle Spasm 11/07/20 03/18/25 Unknown History docusate sodium 100 mg capsule 200 mg PO BID PRN constipation 06/12/21 03/18/25 Unknown History cetirizine 10 mg tablet 10 mg PO DAILY Allergy Symptoms 10/31/22 03/18/25 03/17/25 History nebulizers 01/08/23 08/24/24 Unknown History ondansetron 4 mg disintegrating 4 mg PO Q6H PRN nausea/vomiting 01/08/23 03/18/25 Unknown History tablet pantoprazole 40 mg tablet,delayed 40 mg PO DAILY@0630 08/27/23 03/18/25 03/17/25 History release duloxetine 30 mg capsule,delayed 30 mg PO BID 01/18/24 03/18/25 03/17/25 History release fluocinonide 0.05 % topical cream 1 appl topical BID PRN Rash 05/04/24 03/18/25 Unknown History meloxicam 15 mg tablet 15 mg PO DAILY PRN low back pain 05/04/24 03/18/25 Unknown History valacyclovir 500 mg tablet 500 mg PO BID 05/04/24 03/18/25 03/17/25 History aspirin 81 mg tablet,delayed 81 mg PO DAILY 03/18/25 03/18/25 03/17/25 History release azithromycin 250 mg tablet 250 mg PO DAILY 03/18/25 03/18/25 03/17/25 History bisoprolol fumarate 10 mg tablet 10 mg PO DAILY 03/18/25 03/18/25 03/17/25 History cholecalciferol (vitamin D3) 25 25 mcg PO DAILY 03/18/25 03/18/25 03/17/25 History mcg (1,000 unit) tablet (Vitamin D3) empagliflozin 10 mg tablet 10 mg PO DAILY 03/18/25 03/18/25 03/17/25 History (Jardiance) lorazepam 1 mg tablet 1 mg PO DAILY PRN Anxiety 03/18/25 03/18/25 Unknown History methadone 10 mg tablet 10 mg PO BID pain 03/18/25 03/18/25 03/17/25 History methadone 10 mg tablet 10 mg PO DAILY PRN pain 03/18/25 03/18/25 Unknown History prednisone 20 mg tablet 20 mg PO BID 03/18/25 03/18/25 03/17/25 History revefenacin 175 mcg/3 mL solution 175 mcg inhalation DAILY 03/18/25 03/18/25 03/17/25 History for nebulization (Yupelri) sacubitril 49 mg-valsartan 51 mg 1 tab PO BID 03/18/25 03/18/25 03/17/25 History tablet (Entresto) Physical Exam 2 Vital Signs and Narrative: Vital Signs: Last Vital Signs Temp 98.7 F 03/18/25 11:40 Pulse 118 H 03/18/25 16:28 Resp 26 H 03/18/25 16:28 BP 118/73 03/18/25 16:28 Pulse Ox 96 03/18/25 16:28 O2 Del Method Room Air 03/18/25 15:39 O2 Flow Rate 4 03/18/25 15:08 BMI result Body Mass Index 23.0 General: AOx3, no acute distress Resp: Diffuse expiratory wheezing, diaphoretic breathing CVS: S1, S2, regular rate, tachycardic GI: +BS, no distention, mild diffuse lower abdominal tenderness as Skin: Warm, dry Neuro: Cranial nerves II-XII grossly intact bilaterally. Motor grossly intact bilaterally Extremities: No edema Psych: Appropriate affect Results Labs 03/18/25 12:17 03/18/25 12:17 Labs: Laboratory Results - last 24 hr 03/18/25 03/18/25 03/18/25 12:17 12:18 12:23 MCV 98.3 H MCH 31.8 MCHC 32.4 RDW 13.2 Plt Count 170 D MPV 10.0 Immature Gran % (Auto) 0.8 H Neut % (Auto) 86.9 H Lymph % (Auto) 6.1 L [place] % (Auto) 5.7 Eos % (Auto) 0.2 Baso % (Auto) 0.3 Lymph # (Auto) 0.6 L [place] # (Auto) 0.5 Eos # (Auto) 0.0 Baso # (Auto) 0.0 Abs Immat Gran (auto) 0.07 H Absolute Neuts (auto) 7.8 Absolute Nucleated RBC 0.000 Nucleated RBC % (auto) 0.0 VBG pH 7.35 VBG pCO2 47 VBG pO2 60 VBG HCO3 26 VBG O2 Saturation 86.0 VBG Base Excess 0.5 Anion Gap 15 Estim Creat Clear Calc 51.1 Estimated GFR > 60 Random Glucose 116 H Calcium 9.3 Magnesium 2.0 Total Bilirubin 0.3 AST 36 ALT 29 Alkaline Phosphatase 58 Troponin I High Sens 4.4 Total Protein 7.4 Albumin 3.7 Urine Color Urine Appearance Urine pH Ur Specific [place] Urine Protein Urine Glucose (UA) Urine Ketones Urine Blood Urine Nitrite Ur Leukocyte Esterase Urine Opiates Screen Ur Buprenorphine Scrn Ur Oxycodone Screen Urine Methadone Screen Urine Fentanyl Screen Ur Barbiturates Screen Ur Phencyclidine Scrn Ur Amphetamines Screen U Benzodiazepines Scrn Urine Cocaine Screen U Marijuana (THC) Screen Influenza Type A (PCR) NEGATIVE Influenza Type B (PCR) NEGATIVE RSV RNA Qual (PCR) NEGATIVE SARS-CoV-2 RNA (RT-PCR) NEGATIVE 03/18/25 16:07 MCV MCH MCHC RDW Plt Count MPV Immature Gran % (Auto) Neut % (Auto) Lymph % (Auto) [place] % (Auto) Eos % (Auto) Baso % (Auto) Lymph # (Auto) [place] # (Auto) Eos # (Auto) Baso # (Auto) Abs Immat Gran (auto) Absolute Neuts (auto) Absolute Nucleated RBC Nucleated RBC % (auto) VBG pH VBG pCO2 VBG pO2 VBG HCO3 VBG O2 Saturation VBG Base Excess Anion Gap Estim Creat Clear Calc Estimated GFR Random Glucose Calcium Magnesium Total Bilirubin AST ALT Alkaline Phosphatase Troponin I High Sens Total Protein Albumin Urine Color Yellow Urine Appearance Clear Urine pH 6.0 Ur Specific [place] >= 1.030 H Urine Protein Trace Urine Glucose (UA) Negative Urine Ketones Negative Urine Blood Negative Urine Nitrite Negative Ur Leukocyte Esterase Negative Urine Opiates Screen Not Detected Ur Buprenorphine Scrn Not Detected Ur Oxycodone Screen Not Detected Urine Methadone Screen Positive H Urine Fentanyl Screen Not Detected Ur Barbiturates Screen Not Detected Ur Phencyclidine Scrn Not Detected Ur Amphetamines Screen Not Detected U Benzodiazepines Scrn Not Detected Urine Cocaine Screen Not Detected U Marijuana (THC) Screen Not Detected Influenza Type A (PCR) Influenza Type B (PCR) RSV RNA Qual (PCR) SARS-CoV-2 RNA (RT-PCR) Assessment and Plan (1) Acute asthma exacerbation: Status: Acute Plan Pt is a 64-year-old male with a PMH significant for?chronic hypoxic respiratory failure, asthma/COPD overlap syndrome on 3L home O2 p.r.n., HFrEF, GERD, and GERD who presents to the ED with?SOB, difficulty breathing, and DUARTE that began last night. Pt is admitted to the hospital under observation for treatment and further evaluation of COPD exacerbation not sufficiently responsive to ED therapies. Acute asthma/COPD overlap syndrome exacerbation Pt with increased SOB, DUARTE, non productive cough since last night Reports is home sick with URI symptoms Pt continues to be SOB and with diffuse wheezing and work of breathing despite treatment in the ED Not requiring increased supplemental O2 We will give Mag sulfate 2 g IV Solu-Medrol 40 mg IV b.i.d., Xopenex, guaifenesin No sepsis: tachycardia secondary to albuterol, CXR without consolidation, no fever or leukocytosis Pulmonology consult: pt follows with Dr. Ba Check full respiratory topographical drafter respiratory status Tachycardia Pt has been tachycardic as high as 144 Secondary to DuoNeb use, not sepsis: Pt has had up to 8 nebulized treatments today including those at home, by EMS, and in the ED Will switch to Xopenex for now Monitor HR HFrEF Not in acute exacerbation Continue Jardiance, Entresto GERD Continue PPI Mood disorder Continue mood stabilizers Full Code Attending:?Dr. Pierce DVT Prophylaxis: Lovenox Pt is admitted to the hospital under observation for treatment and further evaluation of acute asthma/COPD overlap syndrome exacerbation not sufficiently responsive to ED treatments and requiring overnight hospitalization for additional breathing treatments, IV steroids, and close monitoring of respiratory status. Quality Stroke Does the patient have a stroke diagnosis?: No VTE Prior VTE?: No VTE Risk Level:: Medical - moderate - high VTE Device Contraindication: Treatment Not Indicated VTE Drug Contraindication: N/A - Med Ordered
[2025-03-18] MEDS: methylPREDNISolone Sod Succ 40 MG/ML VIAL IVPUSH (17:36)
--- NOTE | 2025-03-18 18:01 | PHA.MEDREC ---
Addendum entered by Tanisha Pereira RPh 03/18/25 18:28: Med rec was reviewed by [facility]. Original Note: Pharmacy Consult ? Medication Reconciliation Pharmacy has completed the medication reconciliation. Spoke to patient and daughter at bedside and confirmed some medications. Patient has a METAL SPONGE MAKING MACHINE OPERATOR that gives him his medications. Called METAL SPONGE MAKING MACHINE OPERATOR Stella [phone] and she was able to confirm patients medications. Court Transcriber states patient is no longer taking Metoprolol succ 100 mg ( changed to Bisoprolol fum 10 mg), Lidocaine 5% patch, and Prolia (patient is waiting to get denture implants, med on hold) Patients been off for over 6 months now. METAL SPONGE MAKING MACHINE OPERATOR confirmed Methadone 10 mg BID and 10 mg if needed (patient has been weaning off), Lorazapam 1 mg is daily even though claims has TID. patient receives his IVIG medications every 28 days from [facility], last dose was 03/10/25.
[2025-03-18] MEDS: levalbuterol HCL 1.25 MG/3 ML VIAL.NEB INHALE (20:07)
[2025-03-18] MEDS: methADONE HCl 10 MG TABLET PO (21:00)
[2025-03-18] MEDS: valACYclovir HCL 500 MG TABLET PO (21:00)
[2025-03-18] MEDS: DULoxetine HCl 30 MG CAPSULE.DR PO (21:00)
[2025-03-18] MEDS: Theophylline Anhydrous ER 400 MG TAB.ER.24H 200 MG PO (21:00)
[2025-03-18] MEDS: Sacubitril/Valsartan 49/51 1 TAB TABLET PO (21:00)
[2025-03-18] MEDS: Enoxaparin Sodium 40 MG/0.4 ML SYRINGE SUBCUT (21:00)
[2025-03-19] VITALS (13 sets, daily range): BP systolic 104–125; BP diastolic 68–83; PULSE 95–125; RESP 15–25; TEMP 36.7–36.8; O2SAT 91–98
[2025-03-19] MEDS: Ibuprofen 600 MG TABLET PO (01:14)
[2025-03-19] MEDS: Cyclobenzaprine HCl 10 MG TABLET PO (01:14)
[2025-03-19] MEDS: Albuterol Sulfate (0.083%) 2.5 MG/3 ML VIAL.NEB INHALE (02:29)
[2025-03-19] MEDS: Omeprazole 20 MG CAPSULE.DR PO (06:55)
[2025-03-19] MEDS: methylPREDNISolone Sod Succ 40 MG/ML VIAL IVPUSH ×2 (06:55→18:26)
[2025-03-19] MEDS: levalbuterol HCL 1.25 MG/3 ML VIAL.NEB INHALE ×2 (08:43→11:33)
[2025-03-19] MEDS: Loratadine 10 MG TABLET PO (09:31)
[2025-03-19] MEDS: Cholecalciferol (Vitamin D3) 25 MCG TABLET PO (09:31)
[2025-03-19] MEDS: Theophylline Anhydrous ER 400 MG TAB.ER.24H 200 MG PO (09:31)
[2025-03-19] MEDS: Aspirin Enteric Coated 81 MG TABLET.DR PO (09:31)
[2025-03-19] MEDS: Roflumilast 500 MCG TABLET PO (09:31)
[2025-03-19] MEDS: valACYclovir HCL 500 MG TABLET PO ×2 (09:31→20:21)
[2025-03-19] MEDS: DULoxetine HCl 30 MG CAPSULE.DR PO ×2 (09:31→20:23)
[2025-03-19] MEDS: Azithromycin 250 MG TABLET PO (09:31)
[2025-03-19] MEDS: Sacubitril/Valsartan 49/51 1 TAB TABLET PO ×2 (09:31→20:22)
[2025-03-19] MEDS: 0.9 % Sodium Chloride Flush 3 ML SYRINGE IVFLUSH ×2 (09:32→15:10)
[2025-03-19] MEDS: methADONE HCl 10 MG TABLET PO ×2 (09:32→20:22)
--- NOTE | 2025-03-19 11:39 | HO.PM.IMPN ---
Subjective Subjective Date of Service: 03/19/25 Interval History: seen and evaluated this morning feels little better denies fever or chills still wheezy and dyspneic no other events Review of Systems Review of Systems: Yes all other systems are reviewed and are negative Physical Exam Vital Signs: Vital Signs: Last Vital Signs Temp 98.3 F 03/19/25 01:57 Pulse 107 H 03/19/25 11:33 Resp 16 03/19/25 11:33 BP 119/80 03/19/25 09:31 Pulse Ox 98 03/19/25 06:54 O2 Del Method Nasal Cannula 03/19/25 06:54 O2 Flow Rate 3 03/19/25 06:54 BMI result Body Mass Index 23.0 Const: Other: Constitutional : Awake, interactive, not in distress Neck : Normal inspection, Supple Cardiovascular : RRR, no JVP, no lower extremity edema Respiratory : decreased bilateral air entry, no crackles, bilateral expiratory wheezesi Gastrointestinal: soft, lax, Normal bowel sounds, Non tender Skin : Warm, Dry Neurological : Alert & oriented x3, No focal deficit Objective Data Active Medications Acetaminophen (Acetaminophen 325 Mg Tablet) 650 mg PO Q6H PRN PRN Reason: Pain, Mild 1-3,fever,headache Aspirin (Aspirin Enteric Coated 81 Mg Tablet.) 81 mg PO DAILY [facility] Last Admin: 03/19/25 09:31 Dose: 81 mg Documented By: ZAFAR Azithromycin (Azithromycin 250 Mg Tablet) 250 mg PO DAILY [facility] Last Admin: 03/19/25 09:31 Dose: 250 mg Documented By: ZAFAR Calcium Carbonate (Calcium Carbonate 750 Mg Tab.Chew) 750 mg PO Q4H PRN PRN Reason: Heartburn Cyclobenzaprine HCl (Cyclobenzaprine Hcl 10 Mg Tablet) 10 mg PO BID PRN PRN Reason: Muscle Spasm Last Admin: 03/19/25 01:14 Dose: 10 mg Documented By: THONG Docusate Sodium (Docusate Sodium 100 Mg Capsule) 200 mg PO BID PRN PRN Reason: constipation Duloxetine HCl (Duloxetine Hcl 30 Mg Capsule.) 30 mg PO BID [facility] Last Admin: 03/19/25 09:31 Dose: 30 mg Documented By: ZAFAR Empagliflozin (Empagliflozin 10 Mg Tablet) 10 mg PO DAILY [facility] Last Admin: 03/19/25 09:37 Dose: Not Given Documented By: ZAFAR Non-Admin Reason: Pt sts no longer taking. Not given per Pt req Enoxaparin Sodium (Enoxaparin Sodium 40 Mg/0.4 Ml Syringe) 40 mg SUBCUT Q24H [facility] Last Admin: 03/18/25 21:00 Dose: 40 mg Documented By: RUBY Levalbuterol HCl (Levalbuterol Hcl 1.25 Mg/3 Ml Vial.Neb) 1.25 mg INHALE RQ4H WHILE AWAKE [facility] Last Admin: 03/19/25 11:33 Dose: 1.25 mg Documented By: MAHAD Loratadine (Loratadine 10 Mg Tablet) 10 mg PO DAILY [facility] Last Admin: 03/19/25 09:31 Dose: 10 mg Documented By: ZAFAR Lorazepam (Lorazepam 1 Mg Tablet) 1 mg PO DAILY PRN PRN Reason: Anxiety Magnesium Hydroxide (Milk Of Magnesia 30 Ml Oral.Susp) 30 ml PO DAILY PRN PRN Reason: Constipation Melatonin (Melatonin 3 Mg Tablet) 6 mg PO BEDTIME PRN PRN Reason: Insomnia Methadone HCl (Methadone Hcl 10 Mg Tablet) 10 mg PO BID [facility] Last Admin: 03/19/25 09:32 Dose: 10 mg Documented By: ZAFAR Methadone HCl (Methadone Hcl 10 Mg Tablet) 10 mg PO DAILY PRN PRN Reason: Pain, Moderate(Pain Scale 4-6) Methylprednisolone Sodium Succinate (Methylprednisolone Sod Succ 40 Mg/Ml Vial) 40 mg IVPUSH Q12H [facility] Last Admin: 03/19/25 06:55 Dose: 40 mg Documented By: THONG Naproxen (Naproxen 500 Mg Tablet) 500 mg PO BID PRN PRN Reason: low back pain Omeprazole (Omeprazole 20 Mg Capsule.) 20 mg PO DAILY@0630 [facility] Last Admin: 03/19/25 06:55 Dose: 20 mg Documented By: THONG Ondansetron HCl (Ondansetron Odt 4 Mg Tab.Rapdis) 4 mg TRANSLINGU Q6H PRN PRN Reason: nausea/vomiting Roflumilast (Roflumilast 500 Mcg Tablet) 500 mcg PO DAILY [facility] Last Admin: 03/19/25 09:31 Dose: 500 mcg Documented By: ZAFAR Sacubitril/Valsartan (Sacubitril/Valsartan 49/51 1 Tab Tablet) 1 tab PO BID [facility]; Protocol Last Admin: 03/19/25 09:31 Dose: 1 tab Documented By: ZAFAR Sodium Chloride (0.9 % Sodium Chloride Flush 3 Ml Syringe) 3 ml IVFLUSH QSHIFT [facility] Last Admin: 03/19/25 09:32 Dose: 3 ml Documented By: ZAFAR Theophylline (Theophylline Anhydrous Er 400 Mg Tab.Er.24h) 200 mg PO BID [facility] Last Admin: 03/19/25 09:31 Dose: 200 mg Documented By: ZAFAR Valacyclovir HCl (Valacyclovir Hcl 500 Mg Tablet) 500 mg PO BID [facility] Last Admin: 03/19/25 09:31 Dose: 500 mg Documented By: ZAFAR Vitamin D (Cholecalciferol (Vitamin D3) 25 Mcg Tablet) 25 mcg PO DAILY [facility] Last Admin: 03/19/25 09:31 Dose: 25 mcg Documented By: ZAFAR Labs 03/18/25 12:17 03/18/25 12:17 Labs: Laboratory Results - last 24 hr 03/18/25 03/18/25 03/18/25 12:17 12:18 12:23 MCV 98.3 H MCH 31.8 MCHC 32.4 RDW 13.2 Plt Count 170 D MPV 10.0 Immature Gran % (Auto) 0.8 H Neut % (Auto) 86.9 H Lymph % (Auto) 6.1 L [place] % (Auto) 5.7 Eos % (Auto) 0.2 Baso % (Auto) 0.3 Lymph # (Auto) 0.6 L [place] # (Auto) 0.5 Eos # (Auto) 0.0 Baso # (Auto) 0.0 Abs Immat Gran (auto) 0.07 H Absolute Neuts (auto) 7.8 Absolute Nucleated RBC 0.000 Nucleated RBC % (auto) 0.0 VBG pH 7.35 VBG pCO2 47 VBG pO2 60 VBG HCO3 26 VBG O2 Saturation 86.0 VBG Base Excess 0.5 Anion Gap 15 Estim Creat Clear Calc 51.1 Estimated GFR > 60 Random Glucose 116 H Calcium 9.3 Magnesium 2.0 Total Bilirubin 0.3 AST 36 ALT 29 Alkaline Phosphatase 58 Troponin I High Sens 4.4 Total Protein 7.4 Albumin 3.7 Urine Color Urine Appearance Urine pH Ur Specific [place] Urine Protein Urine Glucose (UA) Urine Ketones Urine Blood Urine Nitrite Ur Leukocyte Esterase Urine Opiates Screen Ur Buprenorphine Scrn Ur Oxycodone Screen Urine Methadone Screen Urine Fentanyl Screen Ur Barbiturates Screen Ur Phencyclidine Scrn Ur Amphetamines Screen U Benzodiazepines Scrn Urine Cocaine Screen U Marijuana (THC) Screen Influenza Type A (PCR) NEGATIVE Influenza Type B (PCR) NEGATIVE RSV RNA Qual (PCR) NEGATIVE SARS-CoV-2 RNA (RT-PCR) NEGATIVE 03/18/25 16:07 MCV MCH MCHC RDW Plt Count MPV Immature Gran % (Auto) Neut % (Auto) Lymph % (Auto) [place] % (Auto) Eos % (Auto) Baso % (Auto) Lymph # (Auto) [place] # (Auto) Eos # (Auto) Baso # (Auto) Abs Immat Gran (auto) Absolute Neuts (auto) Absolute Nucleated RBC Nucleated RBC % (auto) VBG pH VBG pCO2 VBG pO2 VBG HCO3 VBG O2 Saturation VBG Base Excess Anion Gap Estim Creat Clear Calc Estimated GFR Random Glucose Calcium Magnesium Total Bilirubin AST ALT Alkaline Phosphatase Troponin I High Sens Total Protein Albumin Urine Color Yellow Urine Appearance Clear Urine pH 6.0 Ur Specific [place] >= 1.030 H Urine Protein Trace Urine Glucose (UA) Negative Urine Ketones Negative Urine Blood Negative Urine Nitrite Negative Ur Leukocyte Esterase Negative Urine Opiates Screen Not Detected Ur Buprenorphine Scrn Not Detected Ur Oxycodone Screen Not Detected Urine Methadone Screen Positive H Urine Fentanyl Screen Not Detected Ur Barbiturates Screen Not Detected Ur Phencyclidine Scrn Not Detected Ur Amphetamines Screen Not Detected U Benzodiazepines Scrn Not Detected Urine Cocaine Screen Not Detected U Marijuana (THC) Screen Not Detected Influenza Type A (PCR) Influenza Type B (PCR) RSV RNA Qual (PCR) SARS-CoV-2 RNA (RT-PCR) Assessment and Plan (1) COPD exacerbation: Status: Acute (2) Chronic respiratory failure: Status: Acute (3) Hypoxia: Status: Acute Plan Pt is a 64-year-old male with a PMH significant for?chronic hypoxic respiratory failure, asthma/COPD overlap syndrome on 3L home O2 p.r.n., HFrEF, GERD, and GERD who presents to the ED with?SOB, difficulty breathing, and DUARTE that began last night. Pt is admitted to the hospital under observation for treatment and further evaluation of COPD exacerbation not sufficiently responsive to ED therapies. Acute asthma/COPD overlap syndrome exacerbation requiring supplemental O2 Solu-Medrol 40 mg IV b.i.d. 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
--- NOTE | 2025-03-19 12:14 | PC.NURSE ---
Pt c/o severe pain at this time. Pt is agitated and states he will leave AMA if he is not properly medicated per his request. Pt offered PRNs currently available in DEC to which he refused. Pt states these medications are ineffective and requests Morphine. Hospital bed supplied for Pt and Pt expresses gratitude. Hospitalist made aware of Pts complaint and requests via [employer].
[2025-03-19] MEDS: methocarbamoL 500 MG TABLET 1000 MG PO ×2 (12:29→20:22)
[2025-03-19] MEDS: Morphine Sulfate 2 MG/ML CARTRIDGE IVPUSH ×2 (12:29→16:34)
[2025-03-19 12:31] LABS: Adenovirus PCR Not Detected (Not Detect.); Bordetella parapertussis PCR Not Detected (Not Detect.); Bordetella pertussis PCR Not Detected (Not Detect.); Chlamydia pneumoniae PCR Not Detected (Not Detect.); Coronavirus 229E PCR Not Detected (Not Detect.); Coronavirus HKU1 PCR Not Detected (Not Detect.); Coronavirus NL63 PCR Not Detected (Not Detect.); Coronavirus OC43 PCR Not Detected (Not Detect.); Human metapneumovirus PCR Detected (Not Detect.); Influenza A PCR Not Detected (Not Detect.); Influenza B PCR Not Detected (Not Detect.); Mycoplasma pneumoniae PCR Not Detected (Not Detect.); Parainfluenza 1 PCR Not Detected (Not Detect.); Parainfluenza 2 PCR Not Detected (Not Detect.); Parainfluenza 3 PCR Not Detected (Not Detect.); Parainfluenza 4 PCR Not Detected (Not Detect.); RSV PCR Not Detected (Not Detect.); Rhino/Enterovirus PCR Not Detected (Not Detect.)
[2025-03-19 12:44] LABS: Influenza A H1 PCR Not Detected (Not Detect.); Influenza A H1-2009 PCR Not Detected (Not Detect.); Influenza A H3 PCR Not Detected (Not Detect.); SARS-CoV-2 PCR Not Detected (Not Detect.)
--- NOTE | 2025-03-19 14:43 | PC.NURSE ---
Pt reports feeling a lot of mucus in resp tract that he cannot dislodge and requests Mucinex--Hospitalist contacted via [employer] and awaiting order to be placed. Pt has requested to ambulate to tolerance to help alleviate muscle stiffness and loosen secretions. Pt provided with portable oxygen tank/coffee host. Pt observed with slow, safe, steady gait. Pt only able to tolerate 2-3 ,minutes of mobility until he requires some rest. O2 sats stable 92-96% on 3L
--- NOTE | 2025-03-19 14:55 | PC.NURSE ---
Interlibrary Loan Specialist at bedside.
[2025-03-19] MEDS: guaiFENesin LA 600 MG TAB.ER.12H PO ×2 (15:11→20:23)
--- NOTE | 2025-03-19 19:15 | PC.NURSE ---
Assumed care of this patient at 1900, patient resting quietly on hospital bed at this time, awaiting bed assignment.
[2025-03-19] MEDS: LORazepam 1 MG TABLET PO (20:21)
[2025-03-19] MEDS: Enoxaparin Sodium 40 MG/0.4 ML SYRINGE SUBCUT (20:22)
--- NOTE | 2025-03-19 20:29 | PC.NURSE ---
Patient requesting PRN ativan for increased anxiety. Medicated per DEC w/ PM meds. Resting on hosptial bed having conversations with family visiting, no acute distress noted. HR varying ST 110's - 120's.
--- NOTE | 2025-03-19 21:20 | PM.CNPUL ---
History of Present Illness History of Present Illness Consult date: 03/19/25 Chief complaint: COPD exacerbation Narrative: This is an in pt pulmonary consulation. The Pt is a 64-year-old male with a PMH significant for?chronic hypoxic respiratory failure, asthma/COPD overlap syndrome on 3L home O2 p.r.n., HFrEF, GERD, and GERD who presents to the ED with?SOB, difficulty breathing, and DUARTE that began last night. Pt with a long hx of significant COPD and multiple exacerbations requiring hospitalization, follows with Dr. Ba in pulmonology. Pt reports felt yesterday like he was having a COPD exacerbation so increased his inhaler use and called PCP who prescribed prednisone and oral antibiotics. Patient's has been sick with URI-type symptoms. Pt reports has had increased nonproductive cough. No fever or chills. This morning pt had four home nebulizer treatments to little effect. Continued to experience symptoms so called EMS to bring to the hospital for further evaluation. Pt also complains of diffuse abdominal discomfort with intermittent and alternating constipation turning to diarrhea that has been occurring since colon resection and 01/2021, but worsening the past 3-4 weeks. Denies chest pain/pressure, palpitations. No fever, chills, nausea, vomiting. In the ED pt was tachycardic up to 144, tachypneic up to 35, and stable BP. Satting at 96% on 4 L NC. Labs were grossly unremarkable and around baseline for pt. No leukocytosis. Stable H&H. No significant electrolyte abnormalities. Renal and hepatic function WNL. Initial troponin negative. UA negative for UTI. CXR showed no acute findings. CT?of abdomen and pelvis negative for acute abdomen. No inflammation or bowel obstruction, though did show relative distention that may be physiologic vs secondary to ileus or gastroenteritis. EKG demonstrated sinus tachycardia of 141 without evidence of significant ST elevations or depressions. Pt was treated in the ED with DuoNebs, prednisone, acetaminophen, ketorolac, and doxycycline. Pt is admitted to the hospital under observation for treatment and further evaluation of COPD exacerbation not sufficiently responsive to ED therapies. respiratory viral panel +Human metapneumovirus. Review of Systems Constitutional: Constitutional: Reports fatigue, Reports malaise and Reports weakness ENT: Reports Normal hearing present Cardiovascular: Cardiovascular: Reports palpitations and Reports dyspnea on exertion Respiratory: Respiratory: Reports cough, Reports dyspnea on exertion and Reports wheezing Gastrointestinal: Gastrointestinal: Reports as per HPI, Reports abdominal pain and Reports bloating Genitourinary: Genitourinary: Reports no additional male genitourinary complaints Neurologic: Reports Normal hearing present and Reports weakness Endocrine: Endocrine: Reports fatigue and Reports palpitations Allergic/Immunologic: Allergic/Immunologic: Reports wheezing [facility] Past Medical History Medical History Chronic respiratory failure Pleuritic chest pain Pre-op chest exam Chondrocalcinosis Chronic neck and back pain Asthma Asthma-COPD overlap syndrome Asthma FH: bowel obstruction Bronchitis Pulmonary nodules Back pain Dyspnea COPD (chronic obstructive pulmonary disease) Family History Family History Mother History of lung cancer Surgical History Surgical History Hx of colonoscopy History of esophagogastroduodenoscopy (EGD) History of partial colectomy History of hernia repair History of lung biopsy Social History Social History Household Members: Spouse and Children Housing: House Do you presently have visiting nurse or other home services: No Alcohol intake: former Patient Tobacco Use Status: Former Tobacco user Tobacco use type: Cigarette Years Smoked: 15 years Smoked in Last 30 Days: No Second Hand Smoke Exposure: No Use of substances other than those prescribed or required for medical reasons: No Substance Use Type: Caffiene Advance Directives: No Advance Directives Information Provided: Yes Do you have a plan to hurt others: No Plan Nutrition Risks: Gastrointestinal Malabsorption and Poor intake 0-25% >4 days service: No Current occupational status: disabled Meds Allergies Allergy/AdvReac Type Severity Reaction Status Date / Time ciprofloxacin [From Cipro] Allergy Severe Redness Verified 03/18/25 11:42 on Face levofloxacin [From Levaquin] Allergy Severe Swelling Verified 03/18/25 11:42 in the Joints hydromorphone [From Dilaudid] AdvReac Intermediate Anxiety Verified 03/18/25 11:42 Active Medications: Current Medications Acetaminophen (Acetaminophen 325 Mg Tablet) 650 mg PO Q6H PRN PRN Reason: Pain, Mild 1-3,fever,headache Aspirin (Aspirin Enteric Coated 81 Mg Tablet.) 81 mg PO DAILY [facility] Last Admin: 03/19/25 09:31 Dose: 81 mg Azithromycin (Azithromycin 250 Mg Tablet) 250 mg PO DAILY [facility] Last Admin: 03/19/25 09:31 Dose: 250 mg Calcium Carbonate (Calcium Carbonate 750 Mg Tab.Chew) 750 mg PO Q4H PRN PRN Reason: Heartburn Cyclobenzaprine HCl (Cyclobenzaprine Hcl 10 Mg Tablet) 10 mg PO BID PRN PRN Reason: Muscle Spasm Last Admin: 03/19/25 01:14 Dose: 10 mg Docusate Sodium (Docusate Sodium 100 Mg Capsule) 200 mg PO BID PRN PRN Reason: constipation Duloxetine HCl (Duloxetine Hcl 30 Mg Capsule.) 30 mg PO BID [facility] Last Admin: 03/19/25 20:23 Dose: 30 mg Empagliflozin (Empagliflozin 10 Mg Tablet) 10 mg PO DAILY [facility] Last Admin: 03/19/25 09:37 Dose: Not Given Enoxaparin Sodium (Enoxaparin Sodium 40 Mg/0.4 Ml Syringe) 40 mg SUBCUT Q24H [facility] Last Admin: 03/19/25 20:22 Dose: 40 mg Guaifenesin (Guaifenesin La 600 Mg Tab.Er.12h) 600 mg PO BID [facility] Last Admin: 03/19/25 20:23 Dose: 600 mg Levalbuterol HCl (Levalbuterol Hcl 1.25 Mg/3 Ml Vial.Neb) 1.25 mg INHALE RQ4H WHILE AWAKE [facility] Last Admin: 03/19/25 20:15 Dose: Not Given Loratadine (Loratadine 10 Mg Tablet) 10 mg PO DAILY [facility] Last Admin: 03/19/25 09:31 Dose: 10 mg Lorazepam (Lorazepam 1 Mg Tablet) 1 mg PO BID PRN PRN Reason: Anxiety Last Admin: 03/19/25 20:21 Dose: 1 mg Magnesium Hydroxide (Milk Of Magnesia 30 Ml Oral.Susp) 30 ml PO DAILY PRN PRN Reason: Constipation Melatonin (Melatonin 3 Mg Tablet) 6 mg PO BEDTIME PRN PRN Reason: Insomnia Methadone HCl (Methadone Hcl 10 Mg Tablet) 10 mg PO BID [facility] Last Admin: 03/19/25 20:22 Dose: 10 mg Methadone HCl (Methadone Hcl 10 Mg Tablet) 10 mg PO DAILY PRN PRN Reason: Pain, Moderate(Pain Scale 4-6) Methocarbamol (Methocarbamol 500 Mg Tablet) 1,000 mg PO BID [facility] Last Admin: 03/19/25 20:22 Dose: 1,000 mg Methylprednisolone Sodium Succinate (Methylprednisolone Sod Succ 40 Mg/Ml Vial) 40 mg IVPUSH Q12H [facility] Last Admin: 03/19/25 18:26 Dose: 40 mg Morphine Sulfate (Morphine Sulfate 2 Mg/Ml Cartridge) 2 mg IVPUSH Q4H PRN; Protocol PRN Reason: Pain, Severe (Pain Scale 7-10) Last Admin: 03/19/25 16:34 Dose: 2 mg Naproxen (Naproxen 500 Mg Tablet) 500 mg PO BID PRN PRN Reason: low back pain Omeprazole (Omeprazole 20 Mg Capsule.Dr) 20 mg PO DAILY@0630 [facility] Last Admin: 03/19/25 06:55 Dose: 20 mg Ondansetron HCl (Ondansetron Odt 4 Mg Tab.Rapdis) 4 mg TRANSLINGU Q6H PRN PRN Reason: nausea/vomiting Roflumilast (Roflumilast 500 Mcg Tablet) 500 mcg PO DAILY [facility] Last Admin: 03/19/25 09:31 Dose: 500 mcg Sacubitril/Valsartan (Sacubitril/Valsartan 49/51 1 Tab Tablet) 1 tab PO BID [facility]; Protocol Last Admin: 03/19/25 20:22 Dose: 1 tab Sodium Chloride (0.9 % Sodium Chloride Flush 3 Ml Syringe) 3 ml IVFLUSH QSHIFT [facility] Last Admin: 03/19/25 15:10 Dose: 3 ml Valacyclovir HCl (Valacyclovir Hcl 500 Mg Tablet) 500 mg PO BID [facility] Last Admin: 03/19/25 20:21 Dose: 500 mg Vitamin D (Cholecalciferol (Vitamin D3) 25 Mcg Tablet) 25 mcg PO DAILY [facility] Last Admin: 03/19/25 09:31 Dose: 25 mcg Home Medications ?Medication ?Instructions ?Recorded ?Confirmed ?Last Taken ?Type cyclobenzaprine 10 mg tablet 10 mg PO BID PRN Muscle Spasm 11/07/20 03/18/25 Unknown History docusate sodium 100 mg capsule 200 mg PO BID PRN constipation 06/12/21 03/18/25 Unknown History cetirizine 10 mg tablet 10 mg PO DAILY Allergy Symptoms 10/31/22 03/18/25 03/17/25 History nebulizers 01/08/23 08/24/24 Unknown History ondansetron 4 mg disintegrating 4 mg PO Q6H PRN nausea/vomiting 01/08/23 03/18/25 Unknown History tablet pantoprazole 40 mg tablet,delayed 40 mg PO DAILY@0630 08/27/23 03/18/25 03/17/25 History release duloxetine 30 mg capsule,delayed 30 mg PO BID 01/18/24 03/18/25 03/17/25 History release fluocinonide 0.05 % topical cream 1 appl topical BID PRN Rash 05/04/24 03/18/25 Unknown History meloxicam 15 mg tablet 15 mg PO DAILY PRN low back pain 05/04/24 03/18/25 Unknown History valacyclovir 500 mg tablet 500 mg PO BID 05/04/24 03/18/25 03/17/25 History aspirin 81 mg tablet,delayed 81 mg PO DAILY 03/18/25 03/18/25 03/17/25 History release azithromycin 250 mg tablet 250 mg PO DAILY 03/18/25 03/18/25 03/17/25 History bisoprolol fumarate 10 mg tablet 10 mg PO DAILY 03/18/25 03/18/25 03/17/25 History cholecalciferol (vitamin D3) 25 25 mcg PO DAILY 03/18/25 03/18/25 03/17/25 History mcg (1,000 unit) tablet (Vitamin D3) empagliflozin 10 mg tablet 10 mg PO DAILY 03/18/25 03/18/25 03/17/25 History (Jardiance) lorazepam 1 mg tablet 1 mg PO DAILY PRN Anxiety 03/18/25 03/18/25 Unknown History methadone 10 mg tablet 10 mg PO BID pain 03/18/25 03/18/25 03/17/25 History methadone 10 mg tablet 10 mg PO DAILY PRN pain 03/18/25 03/18/25 Unknown History prednisone 20 mg tablet 20 mg PO BID 03/18/25 03/18/25 03/17/25 History revefenacin 175 mcg/3 mL solution 175 mcg inhalation DAILY 03/18/25 03/18/25 03/17/25 History for nebulization (Sangi) sacubitril 49 mg-valsartan 51 mg 1 tab PO BID 05/03/18/25 03/17/25 History tablet (Entresto) Physical Exam Vital Signs: Vital Signs: Last Vital Signs Temp 98.1 F 03/19/25 20:05 Pulse 118 H 03/19/25 20:05 Resp 25 H 03/19/25 20:05 BP 125/83 03/19/25 20:05 Pulse Ox 94 03/19/25 20:05 O2 Del Method Nasal Cannula 03/19/25 20:05 O2 Flow Rate 3 03/19/25 20:05 BMI result Body Mass Index 23.0 Neuro: Cranial nerves: Yes Normal hearing present Results Laboratory Findings 03/18/25 12:17 03/18/25 12:17 Abnormal lab findings: Abnormal Labs 03/18/25 03/18/25 03/18/25 12:17 16:07 17:16 RBC 4.59 L MCV 98.3 H Immature Gran % (Auto) 0.8 H Neut % (Auto) 86.9 H Lymph % (Auto) 6.1 L Lymph # (Auto) 0.6 L Abs Immat Gran (auto) 0.07 H Random Glucose 116 H Ur Specific [place] >= 1.030 H Urine Methadone Screen Positive H Human Metapneumovir PCR Detected A Assessment and Plan (1) COPD exacerbation: Status: Acute (2) Infection due to human metapneumovirus (hMPV): Status: Acute (3) Sinus tachycardia: Status: Acute (4) Cardiomyopathy: Qualifiers: Cardiomyopathy type: unspecified Qualified Code(s): I42.9 - Cardiomyopathy, unspecified Status: Acute Plan continue respiratory therapy Continue corticosteroids and abx therapy stop Theophylline and check levels in view of the HR ECHO oxygen to keep pox 90-96% Procedures Date of Service Date of Service: 03/19/25
[2025-03-20] VITALS (26 sets, daily range): BP systolic 88–139; BP diastolic 62–90; PULSE 102–200; RESP 12–28; TEMP 36–36.9; O2SAT 88–99; BMI 23.0
--- NOTE | 2025-03-20 | ECG_ITS ---
Test Reason : rapid response Blood Pressure : */* mmHG Vent. Rate : 183 BPM Atrial Rate : * BPM P-R Int : * ms QRS Dur : 102 ms QT Int : 256 ms P-R-T Axes : * -61 92 degrees QTcB Int : 446 ms possible Sinus tachycardia Left axis deviation Nonspecific ST and T wave abnormality Abnormal ECG When compared with ECG of 20-Mar-2025 02:09, Vent. rate has increased by 85 bpm Inverted T waves have replaced nonspecific T wave abnormality in Lateral leads Referred By: Kori Ba Electronically Signed By: UCHE MAR
--- NOTE | 2025-03-20 | ECG_ITS ---
Test Reason : tachycardia Blood Pressure : */* mmHG Vent. Rate : 98 BPM Atrial Rate : 98 BPM P-R Int : 130 ms QRS Dur : 96 ms QT Int : 318 ms P-R-T Axes : 82 -66 64 degrees QTcB Int : 405 ms Normal sinus rhythm Left axis deviation Abnormal ECG When compared with ECG of 18-Mar-2025 11:51, No significant changes seen Referred By: Bren Bolanos Electronically Signed By: UCHE MAR
--- NOTE | 2025-03-20 00:20 | MHC.EDTECH ---
This pct assumed Care of Patient at 2300 ,vitals taken ,Patient has a bed assignment on med surge,waiting for report to be given .Call nuñez within Pt reach .
[2025-03-20] MEDS: NaPROXEN 500 MG TABLET PO (00:30)
[2025-03-20] MEDS: Melatonin 3 MG TABLET 6 MG PO (00:30)
[2025-03-20] MEDS: Morphine Sulfate 2 MG/ML CARTRIDGE IVPUSH (00:30)
[2025-03-20 02:44] LABS: D Dimer High Sensitivity 235 NG/ML
[2025-03-20 02:48] LABS: Lactic Acid 1.1 mmol/L (0.5-2.0)
[2025-03-20 02:55] LABS: Troponin-I High Sensitivity 7.9 ng/L (<3.5-35.0)
[2025-03-20] MEDS: methADONE HCl 10 MG TABLET PO ×2 (03:30→20:09)
[2025-03-20] MEDS: Omeprazole 20 MG CAPSULE.DR PO (05:26)
[2025-03-20] MEDS: methylPREDNISolone Sod Succ 40 MG/ML VIAL IVPUSH (05:26)
[2025-03-20 05:44] LABS: Basophils Percent Auto 0.1 % (0-2); Hematocrit 38.1 % (42.0-52.0); Hemoglobin 12.7 g/dl (14.0-18.0); Imm Gran Abs Auto 0.09 X10*3/uL (0.00-0.03); Imm Gran Pct Auto 0.5 % (0.0-0.4); Lymphocytes Absolute Auto 0.6 X10*3/uL (1.2-4.9); Lymphocytes Percent Auto 3.2 % (20-40); MANUAL DIFF FLAG SCAN; Mean Corpuscular HGB Conc 33.3 g/dl (31.0-36.0); Mean Corpuscular Hemoglobin 31.8 pg (27.0-33.0); Mean Corpuscular Volume 95.3 fL (80.0-98.0); Mean Platelet Volume 10.2 fL (9.4-12.4); Monocytes Absolute Auto 0.6 X10*3/uL (0.1-1.2); Monocytes Percent Auto 3.7 % (2-11); Neutrophils Absolute Auto 16.1 x10*3/uL (2.0-8.3); Neutrophils Percent Auto 92.5 % (45-73); Platelet Count 242 X10*3/uL (160-400); Red Cell Distribution Width 13.2 % (11.0-16.0); SCAN SMEAR FLAG 1; White Blood Count 17.4 X10*3/uL (4.8-10.8)
[2025-03-20 05:58] LABS: Anion Gap 14 (12-20); Blood Urea Nitrogen 33 mg/dL (9-16); Calcium 9.2 mg/dL (8.4-10.2); Carbon Dioxide 25 mmol/L (22-29); Chloride 104 mmol/L (96-108); Creatinine Clr Calc Pharmacy 41.1; Estimated Glomerular Filt Rate 48; Glucose Random 133 mg/dL (60-115); Potassium 5.3 mmol/L (3.3-5.1); Sodium 138 mmol/L (135-145)
[2025-03-20 06:03] LABS: SLIDE REVIEW VERIFIED
--- NOTE | 2025-03-20 07:00 | CA_ITS ---
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 - No obvious valvular pathology seen on this study. - Recommend contrast in the future to improve endocardial definition. Findings Left Ventricle Normal left ventricular cavity size. There is normal left ventricular wall thickness. LVEF possibly reduced but difficult to quantify on this study. Due to lack of IV access, contrast not used. Right Ventricle Normal right ventricular cavity size. There is mildly decreased right ventricular systolic function. Atria Atrial or not well visualized but probably normal size. Aortic Valve The aortic valve was not well visualized. Based on gradients, no significant aortic stenosis. Mitral Valve The mitral valve appears normal. There is no mitral valve regurgitation. There is no mitral valve stenosis. Pulmonic Valve The pulmonic valve was not well visualized. Tricuspid Valve There is trace tricuspid valve regurgitation. There is no evidence of pulmonary hypertension. Great Vessels The asc aorta is normal in size. Venous The inferior vena cava is normal in size and collapses greater than 50% with inspiration. Pericardium/Pleural There is no evidence of pericardial effusion. Prior Study Comparison No prior study available for comparison. Recommendations, Care & Conclusions No obvious valvular pathology seen on this study. Recommend contrast in the future to improve endocardial definition. Measurements 2D Linear Measurements IVSd: 0.62 0.6-0.9/0.6-1.0 cm LVIDd: 4.21 3.9-5.3/4.2-5.9 cm LVIDd Index: 2.61 2.4-3.2/2.2-3.1 cm/m2 LVIDs: 2.99 2.0-3.6 cm LVPWd: 0.89 0.7-1.1 cm LA Diam: 3.10 2.7-3.8/3.0-4.0 cm LAIDs Index: 1.93 1.5-2.3 cm/m2 LV Mass: 117.65 67-162/88-224 g LV Mass Index: 73.07 43-95/49-115 g/m2 LVOT Diam: 1.90 3.0+(-)1.3 cm Mitral Valve MV Pk E: 0.39 MV PK A: 0.56 MV Decel Time: 154.00 E/A: 0.70 PHT: 45.00 MVA PHT: 4.89 Decel [place]: 2.50 Aortic Valve AoV Pk [place]: 1.22 AoV Mn [place]: 0.87 AoV VTI: 0.15 AoV Pk Grad: 6.00 Aov Mn Grad: 3.00 IVETTE Cont.VTI: 1.45 LVOT LVOT Pk [place]: 0.56 LVOT Mn [place]: 0.41 LVOT VTI: 0.08 LVOT Pk Grad: 1.00 LVOT Mn Grad: 1.00 LVOT Diam: 1.90 LVOT Area: 2.84 Diastolic Function MV Pk E: 0.39 MV Pk A: 0.56 E/A: 0.70 Right Ventricle TAPSE (mm): 15.10 TVS' Placido: 8.81 Tricuspid Valve TR Pk Plac[place]: 2.05 TR Pk Grad: 17.00 RA Press: 3.00 RVSP: 20.00 Great Vessels Aorta Sinus of Valsalva: 3.40 2.0-3.5 cm Ao Asc: 3.20 2.1-3.4 cm Updated in Other Vendor System with Status of Final Dejuan Sainz MD electronically signed on 03/20/2025 11:19:16 AM with status of Final
[2025-03-20] MEDS: levalbuterol HCL 1.25 MG/3 ML VIAL.NEB INHALE ×2 (07:51→11:55)
[2025-03-20] MEDS: 0.9 % Sodium Chloride Flush 3 ML SYRINGE IVFLUSH ×2 (08:21→20:12)
[2025-03-20] MEDS: Roflumilast 500 MCG TABLET PO (08:21)
[2025-03-20] MEDS: Azithromycin 250 MG TABLET PO (08:22)
[2025-03-20] MEDS: guaiFENesin LA 600 MG TAB.ER.12H PO (08:23)
[2025-03-20] MEDS: Aspirin Enteric Coated 81 MG TABLET.DR PO (08:24)
[2025-03-20] MEDS: Cholecalciferol (Vitamin D3) 25 MCG TABLET PO (08:24)
[2025-03-20] MEDS: Loratadine 10 MG TABLET PO (08:24)
[2025-03-20] MEDS: methocarbamoL 500 MG TABLET 1000 MG PO (08:25)
[2025-03-20] MEDS: DULoxetine HCl 30 MG CAPSULE.DR PO (08:25)
[2025-03-20] MEDS: Sodium Zirconium Cyclosilicate 5 GM POWD.PACK PO (08:25)
--- NOTE | 2025-03-20 10:28 | MHC.CM.PN ---
PER MD ROUNDS, PT IS EXPECTED TO BE CLEARED FOR DC TOMORROW DCP: [facility] [employer] FAM[facility] TO TRANSPORT
--- NOTE | 2025-03-20 10:39 | HO.PM.IMPN ---
Subjective Subjective Date of Service: 03/20/25 Interval History: seen and evaluated this morning feels dyspneic and wheezy Tachycardia denies fever or chills no other events Review of Systems Review of Systems: Yes all other systems are reviewed and are negative Physical Exam Vital Signs: Vital Signs: Last Vital Signs Temp 96.8 F 03/20/25 08:00 Pulse 142 H 03/20/25 08:00 Resp 20 03/20/25 08:00 BP 116/84 03/20/25 08:00 Pulse Ox 92 03/20/25 08:00 O2 Del Method Nasal Cannula 03/20/25 08:00 O2 Flow Rate 3.0 03/20/25 08:00 BMI result Body Mass Index 23.0 Const: Other: Constitutional : Awake, interactive, in moderate distress Neck : Normal inspection, Supple Cardiovascular : RRR, no JVP, no lower extremity edema Respiratory : decreased bilateral air entry, no crackles, bilateral expiratory wheezes, O2 supplement Gastrointestinal: soft, lax, Normal bowel sounds, Non tender Skin : Warm, Dry Neurological : Alert & oriented x3, No focal deficit Objective Data Active Medications Acetaminophen (Acetaminophen 325 Mg Tablet) 650 mg PO Q6H PRN PRN Reason: Pain, Mild 1-3,fever,headache Aspirin (Aspirin Enteric Coated 81 Mg Tablet.) 81 mg PO DAILY [facility] Last Admin: 03/20/25 08:24 Dose: 81 mg Documented By: JOSUÉ Azithromycin (Azithromycin 250 Mg Tablet) 250 mg PO DAILY [facility] Last Admin: 03/20/25 08:22 Dose: 250 mg Documented By: JOSUÉ Calcium Carbonate (Calcium Carbonate 750 Mg Tab.Chew) 750 mg PO Q4H PRN PRN Reason: Heartburn Cyclobenzaprine HCl (Cyclobenzaprine Hcl 10 Mg Tablet) 10 mg PO BID PRN PRN Reason: Muscle Spasm Last Admin: 03/19/25 01:14 Dose: 10 mg Documented By: THONG Docusate Sodium (Docusate Sodium 100 Mg Capsule) 200 mg PO BID PRN PRN Reason: constipation Duloxetine HCl (Duloxetine Hcl 30 Mg Capsule.) 30 mg PO BID [facility] Last Admin: 03/20/25 08:25 Dose: 30 mg Documented By: JOSUÉ Empagliflozin (Empagliflozin 10 Mg Tablet) 10 mg PO DAILY [facility] Last Admin: 03/20/25 08:22 Dose: Not Given Documented By: JOSUÉ Non-Admin Reason: pt no longer takes Enoxaparin Sodium (Enoxaparin Sodium 30 Mg/0.3 Ml Syringe) 30 mg SUBCUT Q24H [facility] Guaifenesin (Guaifenesin [place] 600 Mg Tab.Er.12h) 600 mg PO BID [facility] Last Admin: 03/20/25 08:23 Dose: 600 mg Documented By: JOSUÉ Ipratropium [place] (Ipratropium [place] 0.5 Mg/2.5 Ml Solution) 0.5 mg INHALE RQ4H WHILE AWAKE [facility] Levalbuterol HCl (Levalbuterol Hcl 1.25 Mg/3 Ml Vial.Neb) 1.25 mg INHALE Q4H PRN PRN Reason: Shortness of Breath/Wheezing Loratadine (Loratadine 10 Mg Tablet) 10 mg PO DAILY [facility] Last Admin: 03/20/25 08:24 Dose: 10 mg Documented By: JOSUÉ Lorazepam (Lorazepam 1 Mg Tablet) 1 mg PO BID PRN PRN Reason: Anxiety Last Admin: 03/19/25 20:21 Dose: 1 mg Documented By: RUBY Magnesium Hydroxide (Milk Of Magnesia 30 Ml Oral.Susp) 30 ml PO DAILY PRN PRN Reason: Constipation Melatonin (Melatonin 3 Mg Tablet) 6 mg PO BEDTIME PRN PRN Reason: Insomnia Last Admin: 03/20/25 00:30 Dose: 6 mg Documented By: THONG Methadone HCl (Methadone Hcl 10 Mg Tablet) 10 mg PO BID [facility] Last Admin: 03/20/25 08:41 Dose: Not Given Documented By: JOSUÉ Non-Admin Reason: Patient Refused Methadone HCl (Methadone Hcl 10 Mg Tablet) 10 mg PO DAILY PRN PRN Reason: Pain, Moderate(Pain Scale 4-6) Last Admin: 03/20/25 03:30 Dose: 10 mg Documented By: LUX Methocarbamol (Methocarbamol 500 Mg Tablet) 1,000 mg PO BID [facility] Last Admin: 03/20/25 08:25 Dose: 1,000 mg Documented By: JOSUÉ Methylprednisolone Sodium Succinate (Methylprednisolone Sod Succ 40 Mg/Ml Vial) 40 mg IVPUSH Q12H [facility] Last Admin: 03/20/25 05:26 Dose: 40 mg Documented By: LUX Morphine Sulfate (Morphine Sulfate 2 Mg/Ml Cartridge) 2 mg IVPUSH Q4H PRN; Protocol PRN Reason: Pain, Severe (Pain Scale 7-10) Last Admin: 03/20/25 00:30 Dose: 2 mg Documented By: THONG Omeprazole (Omeprazole 20 Mg Capsule.Dr) 20 mg PO DAILY@0630 [facility] Last Admin: 03/20/25 05:26 Dose: 20 mg Documented By: LUX Ondansetron HCl (Ondansetron Odt 4 Mg Tab.Rapdis) 4 mg TRANSLINGU Q6H PRN PRN Reason: nausea/vomiting Roflumilast (Roflumilast 500 Mcg Tablet) 500 mcg PO DAILY [facility] Last Admin: 03/20/25 08:21 Dose: 500 mcg Documented By: JOSUÉ Sacubitril/Valsartan (Sacubitril/Valsartan 49/51 1 Tab Tablet) 1 tab PO BID [facility]; Protocol Last Admin: 03/19/25 20:22 Dose: 1 tab Documented By: RUBY Sodium Chloride (0.9 % Sodium Chloride Flush 3 Ml Syringe) 3 ml IVFLUSH QSHIFT [facility] Last Admin: 03/20/25 08:21 Dose: 3 ml Documented By: JOSUÉ Valacyclovir HCl (Valacyclovir Hcl 500 Mg Tablet) 500 mg PO BID [facility] Last Admin: 03/19/25 20:21 Dose: 500 mg Documented By: RUBY Vitamin D (Cholecalciferol (Vitamin D3) 25 Mcg Tablet) 25 mcg PO DAILY [facility] Last Admin: 03/20/25 08:24 Dose: 25 mcg Documented By: JOSUÉ Labs 03/20/25 05:20 03/20/25 05:20 Labs: Laboratory Results - last 24 hr 03/18/25 03/19/25 03/19/25 17:16 15:55 16:25 MCV MCH MCHC RDW Plt Count MPV Immature Gran % (Auto) Neut % (Auto) Lymph % (Auto) [place] % (Auto) Eos % (Auto) Baso % (Auto) Lymph # (Auto) [place] # (Auto) Eos # (Auto) Baso # (Auto) Abs Immat Gran (auto) Absolute Neuts (auto) Absolute Nucleated RBC Nucleated RBC % (auto) Smear Tech's Comments Hold Purple Top SEE NOTE D-Dimer High Sensitivty Anion Gap Estim Creat Clear Calc Estimated GFR Random Glucose Lactic Acid Calcium Troponin I High Sens Hold Red Top See Note Hold Green Top See Note Respiratory Panel [place] See Note Adenovirus (Rapid PCR) Not Detected B.pert (TEM-PCR) Not Detected B.parapertussis DNA PCR Not Detected C. pneumoniae DNA (PCR) Not Detected Coronavirus OC43 (PCR) Not Detected Coronavirus HKU1 (PCR) Not Detected Coronavirus 229E (PCR) Not Detected Coronavirus NL63 (PCR) Not Detected Human Metapneumovir PCR Detected A Influenza A (RT-PCR) Not Detected Influenza A (H1) PCR Not Detected Influ A (H1/09) PCR Not Detected Influenza A (H3) PCR Not Detected Influenza B (RT-PCR) Not Detected M. pneumoniae (PCR) Not Detected Parainfluenza 1 (PCR) Not Detected Parainfluenza 2 (PCR) Not Detected Parainfluenza 3 (PCR) Not Detected Parainfluenza 4 (PCR) Not Detected RSV (PCR) Not Detected Entero/Rhino (PCR) Not Detected SARS-CoV-2 RNA (RT-PCR) Not Detected 03/20/25 03/20/25 03/20/25 02:21 05:20 10:18 MCV 95.3 MCH 31.8 MCHC 33.3 RDW 13.2 Plt Count 242 D MPV 10.2 Immature Gran % (Auto) 0.5 H Neut % (Auto) 92.5 H Lymph % (Auto) 3.2 L [place] % (Auto) 3.7 Eos % (Auto) 0.0 Baso % (Auto) 0.1 Lymph # (Auto) 0.6 L [place] # (Auto) 0.6 Eos # (Auto) 0.0 Baso # (Auto) 0.0 Abs Immat Gran (auto) 0.09 H Absolute Neuts (auto) 16.1 H Absolute Nucleated RBC 0.000 Nucleated RBC % (auto) 0.0 Smear Tech's Comments VERIFIED Hold Purple Top SEE NOTE D-Dimer High Sensitivty 235 Anion Gap 14 Estim Creat Clear Calc 41.1 Estimated GFR 48 Random Glucose 133 H Lactic Acid 1.1 Calcium 9.2 Troponin I High Sens 7.9 D Hold Red Top Hold Green Top Respiratory Panel [place] Adenovirus (Rapid PCR) B.pert (TEM-PCR) B.parapertussis DNA PCR C. pneumoniae DNA (PCR) Coronavirus OC43 (PCR) Coronavirus HKU1 (PCR) Coronavirus 229E (PCR) Coronavirus NL63 (PCR) Human Metapneumovir PCR Influenza A (RT-PCR) Influenza A (H1) PCR Influ A (H1/09) PCR Influenza A (H3) PCR Influenza B (RT-PCR) M. pneumoniae (PCR) Parainfluenza 1 (PCR) Parainfluenza 2 (PCR) Parainfluenza 3 (PCR) Parainfluenza 4 (PCR) RSV (PCR) Entero/Rhino (PCR) SARS-CoV-2 RNA (RT-PCR) Assessment and Plan (1) Sinus tachycardia: Status: Acute (2) Infection due to human metapneumovirus (hMPV): Status: Acute (3) Acute asthma exacerbation: Status: Acute (4) COPD exacerbation: Status: Acute (5) Acute kidney injury: Status: Acute (6) Acute hyperkalemia: Status: Acute Plan Pt is a 64-year-old male with a PMH significant for?chronic hypoxic respiratory failure, asthma/COPD overlap syndrome on 3L home O2 p.r.n., HFrEF, GERD, and GERD who presents to the ED with?SOB, difficulty breathing, and DUARTE that began last night. Pt is admitted to the hospital under observation for treatment and further evaluation of COPD exacerbation not sufficiently responsive to ED therapies. Acute asthma/COPD overlap syndrome exacerbation complicated with symptomatic tachycardia requiring supplemental O2, HR 140-160s Solu-Medrol 40 mg IV b.i.d. DC Xopenex switch to PRN, Start Ipratropium nebs Theophylline Dcd , levels pending guaifenesin Azithromycin PO Pulmonology consult appreciated, check ECHO full respiratory panel: +ve Metapneumovirus Monitor respiratory status LAURA with acute hyperkalemia give bolus of fluids Lokelma follow BMP HFrEF Not in acute exacerbation Continue Jardiance, Entresto GERD Continue PPI Mood disorder Continue mood stabilizers Full Code DVT Prophylaxis: Lovenox The patient will need overnight stay for treatment of COPD w Hypoxia, LAURA and Hyperkalemia Quality Stroke Does the patient have a stroke diagnosis?: No VTE Prior VTE?: No VTE Risk Level:: Medical - moderate - high VTE Device Contraindication: Treatment Not Indicated VTE Drug Contraindication: N/A - Med Ordered
[2025-03-20 10:40] LABS: Blood Urea Nitrogen 35 mg/dL (9-16); Calcium 9.3 mg/dL (8.4-10.2); Creatinine Clr Calc Pharmacy 43.4; Estimated Glomerular Filt Rate 51; Glucose Random 126 mg/dL (60-115)
[2025-03-20 10:56] LABS: Anion Gap 15 (12-20); Carbon Dioxide 24 mmol/L (22-29); Chloride 104 mmol/L (96-108); Potassium 4.2 mmol/L (3.3-5.1); Sodium 139 mmol/L (135-145)
[2025-03-20] MEDS: LORazepam 1 MG TABLET PO ×2 (11:33→20:09)
[2025-03-20] MEDS: Ipratropium Bromide 0.5 MG/2.5 ML SOLUTION INHALE ×3 (11:53→19:50)
[2025-03-20] MEDS: Morphine Sulfate 2 MG/ML CARTRIDGE 1 MG IVPUSH (12:10)
[2025-03-20] MEDS: Metoprolol Tartrate 5 MG/5 ML VIAL IVPUSH (12:15)
[2025-03-20] MEDS: Midazolam HCl 2 MG/2 ML VIAL IVPUSH (12:20)
[2025-03-20 12:28] LABS: Glucose, Whole Blood 156 mg/dL (60-115)
--- NOTE | 2025-03-20 13:10 | PC.NURSE ---
1200 rapid response called by this RN, pt found to be in tripod position sitting at edge of bed very SOB and saying he cannot breathe, experiencing intercostal retractions, RT already at bedside to give scheduled breathing treatment however pt having difficulties slowly breathing enough to get good effect. Vital signs attempted but had difficulty obtaining O2 sats and accurate HR, multiple pulse ox's used and results varied but ultimately showed to be in low 80's with HR up to 200bpm, BP 210/87. Patient already on 3L baseline O2 so was started on bipap by respiratory. Patient given 1mg IVP morphine, 5mg IVP metoprolol and, 2mg IVP versed approx at 1215 by ICU nurse. Repeat vitals at 1225 showed HR 152, O2 91% on Bipap, BP 192/93. Patient appears more comfortable, less work of breathing but very diaphoretic and still experiencing intercostal retractions. Doctors at bedside agree pt should be transferred to ICU at this time. Pt brought to ICU, nurse to nurse report called to Hunter Villarreal RN
[2025-03-20 13:14] LABS: VBG Base Excess -2.1 mmol/L; VBG HCO3 25 mmol/L (22-26); VBG pCO2 53 mmHg; VBG pH 7.28 (7.32-7.43); VBG pO2 65 mmHg
[2025-03-20 13:15] LABS: Venous Blood Gas Refer to POC result
--- NOTE | 2025-03-20 13:53 | ECG_ITS ---
Test Reason : tachycardia Blood Pressure : */* mmHG Vent. Rate : 117 BPM Atrial Rate : 117 BPM P-R Int : 136 ms QRS Dur : 102 ms QT Int : 332 ms P-R-T Axes : 79 -59 81 degrees QTcB Int : 463 ms Sinus tachycardia Left axis deviation Low voltage QRS Inferior infarct , age undetermined Abnormal ECG When compared with ECG of 20-Mar-2025 12:01, Premature ventricular complexes are no longer Present Vent. rate has decreased by 66 bpm Referred By: Josué Dennis Electronically Signed By: UCHE MAR
--- NOTE | 2025-03-20 14:52 | HE.ICUCC ---
ICU Critical Care Nursing Note - TILE LAYER DRAINAGE, Tx from Med-tele to ICU 258 Transfer to ICU from med-surg at approx 1245, TILE LAYER DRAINAGE for increase WOB and anxiety. Patient put on bipap and brought to ICU. Report received from Aruna MORA. Stayed on bipap for approx 30 min and then transitioned to Nasal cannula. Dr Dennis order to not give bolus ordered from floor. Neuro: Patient alert & Oriented - able to answer questions appropriately. COMMISSIONING AGENT and came to bedside, who were able to help answer questions about medical history. Patient mumbles at time. reports history of transient global amnesia (recent dx) Cardiac: Patient HR 130's, ST when arrived on the floor. Additional EKG ordered and completed. Completed. HR down to 115, occ PVCs. Dr Dennis aware of current HR and BP (improved to low 100's systolic), no new orders for any other meds (received IV lopressor on Med-surg as per report). Resp:Patient tolerating 1.5 liter nasal cannula. O2sat low 90's on nasal cannula. See Adm assessment for head to toe / resp assessment. Patient able to converse at rest. Intermit non-prod cough. Received ativan, morphine, and versed prior to transfer (TILE LAYER DRAINAGE). Diaphoretic when came to floor, but then improved. GI/: reports hx of GI issues - mult gi surgeries. reports patient has had bouts of constipation and bloating. Reports last BM was at home Saturday 03/17 - see I&O for prev output since admitted. Integumentary/Musculoskeletal: No skin issues noted. Hx lower back pain - patient resting comfortably. and prev RN report that patient can ambulate with steady gait. Patient activity as tolerated - Bedrest - repos in bed independently. High fall risk initiated as per ICU protocol. Psychosocial (family etc.): and COMMISSIONING AGENT at bedside - educated about plan of care. 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 Infectious Disease: maintained droplet prec. Periph lines: maintains periph lines - see IV assessment. Report given to Bertha MORA at approx 3pm.
[2025-03-20 15:04] LABS: Basophils Percent Auto 0.1 % (0-2); Hematocrit 39.6 % (42.0-52.0); Hemoglobin 13.2 g/dl (14.0-18.0); Imm Gran Abs Auto 0.11 X10*3/uL (0.00-0.03); Imm Gran Pct Auto 0.5 % (0.0-0.4); Lymphocytes Absolute Auto 0.5 X10*3/uL (1.2-4.9); Lymphocytes Percent Auto 2.2 % (20-40); MANUAL DIFF FLAG SCAN; Mean Corpuscular HGB Conc 33.3 g/dl (31.0-36.0); Mean Corpuscular Hemoglobin 31.7 pg (27.0-33.0); Mean Platelet Volume 10.2 fL (9.4-12.4); Monocytes Absolute Auto 1.1 X10*3/uL (0.1-1.2); Monocytes Percent Auto 5.5 % (2-11); Neutrophils Absolute Auto 18.8 x10*3/uL (2.0-8.3); Neutrophils Percent Auto 91.7 % (45-73); Platelet Count 226 X10*3/uL (160-400); Red Blood Count 4.17 X10*6/uL (4.60-5.80); Red Cell Distribution Width 13.5 % (11.0-16.0); SCAN SMEAR FLAG 1; White Blood Count 20.6 X10*3/uL (4.8-10.8)
[2025-03-20 15:19] LABS: Beta-Hydroxybutyrate 1.06 mmol/L (0.02-0.27)
[2025-03-20 15:20] LABS: Lactic Acid 1.2 mmol/L (0.5-2.0)
[2025-03-20 15:38] LABS: SLIDE REVIEW VERIFIED
--- NOTE | 2025-03-20 15:46 | PM.CCN ---
Critical Care Event Note Summary Date of Service: 03/20/25 Code activated: No Narrative: 64-year-old gentleman with underlying asthma/COPD overlap syndrome on 3 L of supplemental oxygen, systolic heart failure, chronic methadone for pain admitted on 03/18/2025 with dyspnea and hypoxia and treated for COPD exacerbation. Hospital course significant for episode of tachycardia with hypertensive urgency versus emergency associated with severe dyspnea requiring transfer to intensive care unit for close monitoring, resolved with blood pressure/heart rate control with esmolol drip. Now awake, alert and comfortable on supplemental oxygen 2-3 L, mild tachycardic, with normal hemodynamics, with further laboratory workup pending. Critical Care Time (minutes): 30
[2025-03-20 15:56] LABS: Troponin-I High Sensitivity 187.5 ng/L (<3.5-35.0)
[2025-03-20 15:56] LABS: Alanine Aminotransferase 39 U/L (0-40); Albumin Level 3.5 g/dL (3.5-5.0); Anion Gap 15 (12-20); Aspartate Amino Transferase 56 U/L (5-37); Bilirubin Total 0.3 mg/dL (0.0-1.0); Blood Urea Nitrogen 35 mg/dL (9-16); Calcium 9.3 mg/dL (8.4-10.2); Carbon Dioxide 24 mmol/L (22-29); Chloride 106 mmol/L (96-108); Creatinine Clr Calc Pharmacy 42.2; Estimated Glomerular Filt Rate 50; Glucose Random 96 mg/dL (60-115); Potassium 4.6 mmol/L (3.3-5.1); Sodium 140 mmol/L (135-145); Total Protein 6.9 g/dL (6.5-8.0)
[2025-03-20 16:18] LABS: Alkaline Phosphatase 53 U/L (39-117)
[2025-03-20 16:31] LABS: B Type Natriuretic Peptide 22 pg/mL (<100)
[2025-03-20] MEDS: dexmedeTOMIDine HCL/NS 400 MCG/100 ML PLAST..BAG 14.75 MCG IVCONT (16:39)
[2025-03-20] MEDS: Enoxaparin Sodium 30 MG/0.3 ML SYRINGE SUBCUT (20:12)
[2025-03-21] VITALS (22 sets, daily range): BP systolic 84–107; BP diastolic 59–76; PULSE 114–146; RESP 17–28; TEMP 36.1–36.5; O2SAT 89–97; BMI 21.9
[2025-03-21] MEDS: fentaNYL citrate/PF 100 MCG/2 ML VIAL 50 MCG IVPUSH (02:21)
[2025-03-21] MEDS: chlordiazePOXIDE HCl 25 MG CAPSULE PO (05:47)
[2025-03-21] MEDS: Omeprazole 20 MG CAPSULE.DR PO (05:47)
[2025-03-21] MEDS: dexmedeTOMIDine HCL/NS 400 MCG/100 ML PLAST..BAG 8.85 MCG IVCONT (05:51)
[2025-03-21 05:56] LABS: VBG Base Excess 3.3 mmol/L; VBG HCO3 25 mmol/L (22-26); VBG pCO2 30 mmHg; VBG pH 7.52 (7.32-7.43); VBG pO2 51 mmHg
[2025-03-21] MEDS: LORazepam 1 MG TABLET PO (06:16)
[2025-03-21 06:23] LABS: Basophils Percent Auto 0.1 % (0-2); Eosinophils Percent Auto 0.1 % (0-4); PLT CLUMP 1; SCAN SMEAR FLAG 1
[2025-03-21 06:25] LABS: Hematocrit 41.3 % (42.0-52.0); Hemoglobin 13.5 g/dl (14.0-18.0); Imm Gran Abs Auto 0.07 X10*3/uL (0.00-0.03); Imm Gran Pct Auto 0.5 % (0.0-0.4); Lymphocytes Absolute Auto 1.1 X10*3/uL (1.2-4.9); Lymphocytes Percent Auto 7.4 % (20-40); MANUAL DIFF FLAG SCAN; Mean Corpuscular HGB Conc 32.7 g/dl (31.0-36.0); Mean Corpuscular Hemoglobin 31.3 pg (27.0-33.0); Mean Corpuscular Volume 95.8 fL (80.0-98.0); Monocytes Absolute Auto 1.3 X10*3/uL (0.1-1.2); Neutrophils Absolute Auto 12.3 x10*3/uL (2.0-8.3); Neutrophils Percent Auto 82.9 % (45-73); Red Blood Count 4.31 X10*6/uL (4.60-5.80); Red Cell Distribution Width 13.3 % (11.0-16.0)
[2025-03-21 06:28] LABS: Platelet Count 184 X10*3/uL (160-400); White Blood Count 14.8 X10*3/uL (4.8-10.8)
[2025-03-21 06:40] LABS: Albumin Level 3.1 g/dL (3.5-5.0); Anion Gap 14 (12-20); Blood Urea Nitrogen 33 mg/dL (9-16); Calcium 9.1 mg/dL (8.4-10.2); Carbon Dioxide 25 mmol/L (22-29); Chloride 106 mmol/L (96-108); Estimated Glomerular Filt Rate > 60; Glucose Random 67 mg/dL (60-115); Magnesium 2.3 mg/dL (1.6-2.6); Phosphorus 2.9 mg/dL (2.7-4.5); Potassium 5.1 mmol/L (3.3-5.1); Sodium 140 mmol/L (135-145)
[2025-03-21 06:43] LABS: SLIDE REVIEW VERIFIED
--- NOTE | 2025-03-21 07:00 | CA_ITS ---
Transthoracic Echocardiogram Patient (Last, First, Middle): Aj Butt O Gender: Male Date of : 1960 Age: 64 Procedure Date: 03/21/2025 Procedure Type: Transthoracic Echocardiogram Location: ICU Height: 160.02 cm Weight: 55.79 kg BSA: 1.57 m2 Heart Rate: bpm BP: 84 / 59 mmHg Commercial Maintenance Technician: Referring MD: Apoorva Pierce MD Symptoms: SOB, dyspnea Study Quality: Fair, contrast ECG Rhythm: Sinus tachycardia Conclusions: - The left ventricular systolic function is severely decreased. The visually estimated ejection fraction is between 10-15%. - The apical septum and mid anteroseptal segments are akinetic. - There is no evidence of interatrial shunt by agitated saline. Findings Procedure Information Contrast agent, definity, is being given per protocol without apparent complications. Left Ventricle Normal left ventricular cavity size. The left ventricular systolic function is severely decreased. The visually estimated ejection fraction is between 10-15%. Wall Motion Rest Echo Findings The apical septum and mid anteroseptal segments are akinetic. Atria There is no evidence of interatrial shunt by agitated saline. Bubble study negative during rest and valsalva. Venous The inferior vena cava is normal in size and collapses greater than 50% with inspiration. Prior Study Comparison Changes noted compared to prior study dated: 03/20/2025. Due to poor quality of prior study, cannot compare. Updated in Other Vendor System with Status of Final Dejuan Sainz MD electronically signed on 03/21/2025 10:52:26 AM with status of Final
[2025-03-21 08:29] LABS: Venous Blood Gas Refer to POC result
[2025-03-21] MEDS: Ipratropium Bromide 0.5 MG/2.5 ML SOLUTION INHALE (09:06)
[2025-03-21] MEDS: methADONE HCl 10 MG TABLET PO (09:08)
[2025-03-21] MEDS: Aspirin Enteric Coated 81 MG TABLET.DR PO (09:08)
[2025-03-21] MEDS: Metoprolol Succinate ER 50 MG TAB.ER.24H PO ×2 (09:08→10:44)
[2025-03-21] MEDS: Morphine Sulfate 2 MG/ML CARTRIDGE IVPUSH (09:39)
--- NOTE | 2025-03-21 09:51 | P.CONCA_ITS ---
History of Present Illness History of Present Illness Date of Service: 03/21/25 Chief complaint: COPD exacerbation with hypoxia Narrative: This is a cardiology consultation regarding cardiomyopathy/CHF. He generally goes to [facility] heart failure Service. Last seen about 4 weeks ago. According to the notes, he has a history of congestive heart failure and his EF has been as low as 20% which was in the setting of hypoxic respiratory failure. He has not been able tolerate medications because of symptomatic hypotension. His cardiomyopathy apparently goes back of 2012. He has had a stress test around that time which showed no ischemic findings and hence it was thought to be rather nonischemic cardiomyopathy. Concerns for either tachycardia induced versus stress-induced. In the echocardiogram from 2023, apparently LVEF was 35- 40%. In the repeat study from January 2025, it was 44%.. Hence overall, it seems that he has had variable EF over the years. Currently, admitted as asthma/COPD overlap syndrome and in this context, he has had symptomatic tachycardia into the 140s. There was also concern for concurrent heart failure. Eventually, he was transferred to ICU for further care. He has been on BiPAP. Today, he states that he is able to breathe a bit better. However, he still seems to be tachycardic. In the echocardiogram from yesterday, difficult to assess a LVEF due to poor quality. Today, it was repeated as limited study that apparently showed much lower EF although I am it to review this. We are asked to assess him for further care. Discussed with podiatric foot and ankle specialist over the events. Review of Systems 2 Review of Systems: Yes all other systems are reviewed and are negative Constitutional: Constitutional: Reports as per HPI and Reports no additional constitutional complaints Eyes: Eyes: Reports as per HPI and Denies no additional eye complaints ENT: Denies system reviewed and no additional complaints, except as documented and Reports as per HPI Cardiovascular: Cardiovascular: Reports as per HPI, Reports no additional cardiovascular complaints, Denies acrocyanosis, Denies cool extremities, Denies chest pain, Denies leg edema, Denies lightheadedness, Denies palpitations and Reports dyspnea Respiratory: Respiratory: Reports as per HPI, Denies no additional respiratory complaints and Reports dyspnea Gastrointestinal: Gastrointestinal: Reports as per HPI and Denies no additional gastrointestinal complaints Genitourinary: Genitourinary: Reports no additional male genitourinary complaints and Reports as per HPI Musculoskeletal: Musculoskeletal: Reports no additional musculoskeletal complaints and Reports as per HPI Integumentary/Breasts: Skin/Breast: Reports system reviewed and no additional complaints, except as docu Neurologic: Reports system reviewed and no additional complaints, except as documented and Reports as per HPI Psychiatric: Psychiatric: Reports no additional psychiatric complaints and Reports as per HPI Endocrine: Endocrine: Reports no additional endocrine complaints, Reports as per HPI and Denies palpitations Hematologic/Lymphatic: Hematologic/Lymphatic: Reports no additional hematologic/lymphatic complaints and Reports as per HPI Allergic/Immunologic: Allergic/Immunologic: Reports no additional allergic/immunologic complaints and Reports as per HPI [facility] Past Medical History Medical History (Updated 03/21/25 @ 09:57 by Dejuan Sainz MD) Human metapneumovirus (hMPV) pneumonia Transient global amnesia Chronic respiratory failure Pleuritic chest pain Pre-op chest exam Chondrocalcinosis Chronic neck and back pain Asthma Asthma-COPD overlap syndrome Asthma FH: bowel obstruction Bronchitis Pulmonary nodules Back pain Dyspnea COPD (chronic obstructive pulmonary disease) Family History Family History Mother History of lung cancer Surgical History Surgical History Hx of colonoscopy History of esophagogastroduodenoscopy (EGD) History of partial colectomy History of hernia repair History of lung biopsy Social History Social History Household Members: Spouse and Caregiver Household Members Other:: son, daughter, dog, DEVIL DOG Housing: House Do you presently have visiting nurse or other home services: No (bumboater now only) Alcohol intake: former Patient Tobacco Use Status: Former Tobacco user Tobacco use type: Cigarette Cigarette Packs Per Day: 1 Cigarettes Per Day: 20.0 Years Smoked: 8 Smoked in Last 30 Days: No Patient Interested in Nicotine Replacement: No Second Hand Smoke Exposure: No Use of substances other than those prescribed or required for medical reasons: No Substance Use Type: Caffiene Currently Displaying Signs/Symptoms of Drug Intoxication Withdrawal: No Have you been hit, kicked, punched, or otherwise hurt by someone within the past year? If so, by whom?: No Do you feel safe in your current relationship?: Yes Is there a partner from a previous relationship who is making you feel unsafe now?: No Are you made to feel afraid or neglected: No Spiritual Healthcare Practices: n/a Yarsanism Healthcare Practices: n/a Cultural Healthcare Practices: n/a Advance Directives: No Advance Directives Information Provided: Yes Do you have a plan to hurt others: No Plan Recently lost weight without trying: No How much weight loss: Not applicable Eating poorly because of decreased appetite: No Nutrition screen score: 0 Nutrition Risks: No Nutritional Risk Poor oral hygiene: No service: No Current occupational status: disabled Meds Allergies Allergy/AdvReac Type Severity Reaction Status Date / Time ciprofloxacin [From Cipro] Allergy Severe Redness Verified 03/18/25 11:42 on Face levofloxacin [From Levaquin] Allergy Severe Swelling Verified 03/18/25 11:42 in the Joints hydromorphone [From Dilaudid] AdvReac Intermediate Anxiety Verified 03/18/25 11:42 Active Medications: Current Medications Aspirin (Aspirin Enteric Coated 81 Mg Tablet.) 81 mg PO DAILY [facility] Last Admin: 03/21/25 09:08 Dose: 81 mg Enoxaparin Sodium (Enoxaparin Sodium 30 Mg/0.3 Ml Syringe) 30 mg SUBCUT Q24H JAMES Last Admin: 03/20/25 20:12 Dose: 30 mg Ipratropium [place] (Ipratropium [place] 0.5 Mg/2.5 Ml Solution) 0.5 mg INHALE RQ4H WHILE AWAKE [facility] Last Admin: 03/21/25 09:06 Dose: 0.5 mg Lorazepam (Lorazepam 1 Mg Tablet) 1 mg PO TID PRN PRN Reason: Anxiety Last Admin: 03/21/25 06:16 Dose: 1 mg Methadone HCl (Methadone Hcl 10 Mg Tablet) 10 mg PO BID [facility] Last Admin: 03/21/25 09:08 Dose: 10 mg Methadone HCl (Methadone Hcl 10 Mg Tablet) 10 mg PO DAILY PRN PRN Reason: Pain, Moderate(Pain Scale 4-6) Last Admin: 03/20/25 03:30 Dose: 10 mg Metoprolol Succinate (Metoprolol Succinate Er 50 Mg Tab.Er.24h) 50 mg PO DAILY [facility]; Protocol Last Admin: 03/21/25 09:08 Dose: 50 mg Morphine Sulfate (Morphine Sulfate 2 Mg/Ml Cartridge) 2 mg IVPUSH Q4H PRN; Protocol PRN Reason: Pain, Severe (Pain Scale 7-10) Last Admin: 03/21/25 09:39 Dose: 2 mg Omeprazole (Omeprazole 20 Mg Capsule.Dr) 20 mg PO DAILY@0630 [facility] Last Admin: 03/21/25 05:47 Dose: 20 mg Ondansetron HCl (Ondansetron Odt 4 Mg Tab.Rapdis) 4 mg TRANSLINGU Q6H PRN PRN Reason: nausea/vomiting Sodium Chloride (0.9 % Sodium Chloride Flush 3 Ml Syringe) 3 ml IVFLUSH QSHIFT [facility] Last Admin: 03/21/25 09:08 Dose: Not Given Home Medications ?Medication ?Instructions ?Recorded ?Confirmed ?Last Taken ?Type cyclobenzaprine 10 mg tablet 10 mg PO BID PRN Muscle Spasm 11/07/20 03/18/25 Unknown History docusate sodium 100 mg capsule 200 mg PO BID PRN constipation 06/12/21 03/18/25 Unknown History cetirizine 10 mg tablet 10 mg PO DAILY Allergy Symptoms 10/31/22 03/18/25 03/17/25 History nebulizers 01/08/23 08/24/24 Unknown History ondansetron 4 mg disintegrating 4 mg PO Q6H PRN nausea/vomiting 01/08/23 03/18/25 Unknown History tablet pantoprazole 40 mg tablet,delayed 40 mg PO DAILY@0630 08/27/23 03/18/25 03/17/25 History release duloxetine 30 mg capsule,delayed 30 mg PO BID 01/18/24 03/18/25 03/17/25 History release fluocinonide 0.05 % topical cream 1 appl topical BID PRN Rash 05/04/24 03/18/25 Unknown History meloxicam 15 mg tablet 15 mg PO DAILY PRN low back pain 05/04/24 03/18/25 Unknown History valacyclovir 500 mg tablet 500 mg PO BID 05/04/24 03/18/25 03/17/25 History aspirin 81 mg tablet,delayed 81 mg PO DAILY 03/18/25 03/18/25 03/17/25 History release azithromycin 250 mg tablet 250 mg PO DAILY 03/18/25 03/18/25 03/17/25 History bisoprolol fumarate 10 mg tablet 10 mg PO DAILY 03/18/25 03/18/25 03/17/25 History cholecalciferol (vitamin D3) 25 25 mcg PO DAILY 03/18/25 03/18/25 03/17/25 History mcg (1,000 unit) tablet (Vitamin D3) empagliflozin 10 mg tablet 10 mg PO DAILY 03/18/25 03/18/25 03/17/25 History (Jardiance) lorazepam 1 mg tablet 1 mg PO DAILY PRN Anxiety 03/18/25 03/18/25 Unknown History methadone 10 mg tablet 10 mg PO BID pain 03/18/25 03/18/25 03/17/25 History methadone 10 mg tablet 10 mg PO DAILY PRN pain 03/18/25 03/18/25 Unknown History prednisone 20 mg tablet 20 mg PO BID 03/18/25 03/18/25 03/17/25 History revefenacin 175 mcg/3 mL solution 175 mcg inhalation DAILY 03/18/25 03/18/25 03/17/25 History for nebulization (Yupelri) sacubitril 49 mg-valsartan 51 mg 1 tab PO BID 03/18/25 03/18/25 03/17/25 History tablet (Entresto) Physical Exam 2 Vital Signs: Vital Signs: Last Vital Signs Temp 97.7 F 03/21/25 04:00 Pulse 146 H 03/21/25 09:00 Resp 21 H 03/21/25 09:01 BP 86/63 L 03/21/25 09:00 Pulse Ox 93 03/21/25 09:00 O2 Del Method BiPAP 03/21/25 09:00 O2 Flow Rate 30 03/21/25 07:00 FiO2 26 03/21/25 09:00 BMI result Body Mass Index 21.9 Const: General: comfortable and no acute distress O rientation/consciousness: patient oriented x3 HEENT: Other: Unremarkable Head: Yes normal to inspection Neck: Neck: Yes normal visual inspection Chest: Chest palpation & inspection: normal inspection of the chest Resp: Auscultation: crackles and diminished lung sounds Cardio: Palpation: normal PMI Heart sounds: S1 normal heart sound present, S2 normal heart sound present, no gallops, no murmurs and no rubs GI: Palpation (GI): Soft to palpation Back/Spine/Pelvis: Other: unremarkable Skin: General skin exam: no rashes or lesions noted Neuro: General: patient oriented x3 Extrem: General: Yes normal to inspection Psych: Mental Status: mental status grossly normal Objective Labs and Meds 03/21/25 05:45 03/21/25 05:45 Lab results: Laboratory Results - last 24 hr 03/20/25 03/20/25 03/20/25 10:18 12:22 13:10 WBC RBC Hgb Hct MCV MCH MCHC RDW Plt Count MPV Immature Gran % (Auto) Neut % (Auto) Lymph % (Auto) [place] % (Auto) Eos % (Auto) Baso % (Auto) Lymph # (Auto) [place] # (Auto) Eos # (Auto) Baso # (Auto) Abs Immat Gran (auto) Absolute Neuts (auto) Absolute Nucleated RBC Nucleated RBC % (auto) Smear Tech's Comments Hold Purple Top SEE NOTE VBG pH 7.28 L VBG pCO2 53 VBG pO2 65 VBG HCO3 25 VBG O2 Saturation 84.0 VBG Base Excess -2.1 Sodium 139 Potassium 4.2 D Chloride 104 Carbon Dioxide 24 Anion Gap 15 BUN 35 H Creatinine 1.40 Estim Creat Clear Calc 43.4 Estimated GFR 51 POC Glucose 156 H Random Glucose 126 H Lactic Acid Calcium 9.3 Phosphorus Magnesium Total Bilirubin AST ALT Alkaline Phosphatase Troponin I High Sens B-Natriuretic Peptide Total Protein Albumin Beta-Hydroxybutyrate 03/20/25 03/20/25 03/20/25 14:54 14:55 14:56 WBC 20.6 H RBC 4.17 L Hgb 13.2 L Hct 39.6 L MCV 95.0 MCH 31.7 MCHC 33.3 RDW 13.5 Plt Count 226 MPV 10.2 Immature Gran % (Auto) 0.5 H Neut % (Auto) 91.7 H Lymph % (Auto) 2.2 L [place] % (Auto) 5.5 Eos % (Auto) 0.0 Baso % (Auto) 0.1 Lymph # (Auto) 0.5 L [place] # (Auto) 1.1 Eos # (Auto) 0.0 Baso # (Auto) 0.0 Abs Immat Gran (auto) 0.11 H Absolute Neuts (auto) 18.8 H Absolute Nucleated RBC 0.000 Nucleated RBC % (auto) 0.0 Smear Tech's Comments VERIFIED Hold Purple Top VBG pH VBG pCO2 VBG pO2 VBG HCO3 VBG O2 Saturation VBG Base Excess Sodium 140 Potassium 4.6 Chloride 106 Carbon Dioxide 24 Anion Gap 15 BUN 35 H Creatinine 1.44 H Estim Creat Clear Calc 42.2 Estimated GFR 50 POC Glucose Random Glucose 96 Lactic Acid 1.2 Calcium 9.3 Phosphorus Magnesium Total Bilirubin 0.3 AST 56 H ALT 39 Alkaline Phosphatase 53 Troponin I High Sens 187.5 H* D B-Natriuretic Peptide 22 Total Protein 6.9 Albumin 3.5 Beta-Hydroxybutyrate 1.06 H 03/21/25 03/21/25 05:45 05:52 WBC 14.8 H RBC 4.31 L Hgb 13.5 L Hct 41.3 L MCV 95.8 MCH 31.3 MCHC 32.7 RDW 13.3 Plt Count 184 MPV 11.0 Immature Gran % (Auto) 0.5 H Neut % (Auto) 82.9 H Lymph % (Auto) 7.4 L [place] % (Auto) 9.0 Eos % (Auto) 0.1 Baso % (Auto) 0.1 Lymph # (Auto) 1.1 L [place] # (Auto) 1.3 H Eos # (Auto) 0.0 Baso # (Auto) 0.0 Abs Immat Gran (auto) 0.07 H Absolute Neuts (auto) 12.3 H Absolute Nucleated RBC 0.000 Nucleated RBC % (auto) 0.0 Smear Tech's Comments VERIFIED Hold Purple Top VBG pH 7.52 H VBG pCO2 30 VBG pO2 51 VBG HCO3 25 VBG O2 Saturation 87.0 VBG Base Excess 3.3 Sodium 140 Potassium 5.1 Chloride 106 Carbon Dioxide 25 Anion Gap 14 BUN 33 H Creatinine 1.07 Estim Creat Clear Calc 56.0 Estimated GFR > 60 POC Glucose Random Glucose 67 Lactic Acid Calcium 9.1 Phosphorus 2.9 Magnesium 2.3 Total Bilirubin AST ALT Alkaline Phosphatase Troponin I High Sens B-Natriuretic Peptide Total Protein Albumin 3.1 L Beta-Hydroxybutyrate ECG Interpretation: EKG from 03/20 with sinus tachycardia at 117/Min with leftward axis; cannot exclude old inferior infarct. In the EKG prior to that, he was tachycardic at about 180/Min. EKGs had different times had shown tachycardia. Imaging Radiologist's impression: Impressions Chest X-Ray 03/20/25 12:45 IMPRESSION: COPD. No acute cardiopulmonary abnormality. Electronically signed by: Champ Pino MD 03/20/2025 01:08 PM EDT Assessment and Plan (1) Acute respiratory failure: Status: Acute (2) Cardiomyopathy: Qualifiers: Cardiomyopathy type: unspecified Qualified Code(s): I42.9 - Cardiomyopathy, unspecified Status: Acute (3) Acute on chronic systolic (congestive) heart failure: Status: Acute (4) Sinus tachycardia: Status: Acute (5) Elevated troponin: Status: Acute (6) Acute bronchitis due to human metapneumovirus (hMPV): Status: Acute Plan Pertinent studies reviewed. Chest x-ray yesterday reported to have COPD/no acute cardiopulmonary abnormality. High sensitivity troponin elevated at 187. Prior to that, 7.9. Viral serology positive for human metapneumovirus. Echocardiogram yesterday with poor quality and could not clearly assess LVEF. We will review the repeat study completed today. Per technologist comment, LVEF is severely reduced. Per previous [facility] EF, as low as 20% few years ago and most recently 35-40% and 44%. In the prior Holter at [facility], average heart rate was 102/Min consistent with known sinus tachycardia. Overall, known nonischemic cardiomyopathy with variable EF over the years as well as asthma/COPD here for respiratory distress and currently on BiPAP with known sinus tachycardia. Acute exacerbation could be related to ongoing viral infection superimposed on known pulmonary issues. With regard to cardiac, difficult to assess volume status but nothing overt on clinical exam. We will review the echocardiogram that has already been completed. Otherwise, do not see any acute need for cardiac interventions. Supportive care as you are otherwise doing. Procedures Date of Service Date of Service: 03/21/25
--- NOTE | 2025-03-21 10:19 | PM.CCPN ---
Subjective Subjective Date of Service: 03/21/25 Interval History: 64-year-old gentleman with underlying asthma/COPD overlap syndrome on 3 L of supplemental oxygen, systolic heart failure, chronic methadone for pain admitted on 03/18/2025 with dyspnea and hypoxia and treated for COPD exacerbation. Hospital course significant for episode of tachycardia with hypertensive urgency versus emergency associated with severe dyspnea requiring transfer to intensive care unit for close monitoring, resolved with blood pressure/heart rate control with esmolol drip. No events overnight. 2D echo this a.m. with tentative EF of 10%. Critical Care Time (minutes): 0 Physical Exam Vital Signs: Vital Signs: Last Vital Signs Temp 97.7 F 03/21/25 04:00 Pulse 146 H 03/21/25 09:00 Resp 21 H 03/21/25 09:01 BP 86/63 L 03/21/25 09:00 Pulse Ox 93 03/21/25 09:00 O2 Del Method BiPAP 03/21/25 09:00 O2 Flow Rate 30 03/21/25 07:00 FiO2 26 03/21/25 09:00 BMI result Body Mass Index 21.9 Const: General: no acute distress, alert, awake and anxious Eyes: Sclerae: sclerae normal EOM: EOMs intact bilaterally Neck: Neck: Yes no lymphadenopathy, Yes trachea midline and Yes supple Resp: Effort & Inspection: normal respiratory effort and no respiratory distress Auscultation: clear to auscultation bilaterally Cardio: Rate: tachycardic Rhythm: regular rhythm Heart sounds: no gallops, no murmurs and no rubs GI: Palpation (GI): Soft to palpation and Other GI palpation findings present ( Nontender) Auscultation: normal bowel sounds Extrem: General: Yes no pedal edema, No clubbing and No cyanosis Objective Data Labs 03/21/25 05:45 03/21/25 05:45 Labs: Laboratory Results - last 24 hr 03/20/25 03/20/25 03/20/25 10:18 12:22 13:10 WBC RBC Hgb Hct MCV MCH MCHC RDW Plt Count MPV Immature Gran % (Auto) Neut % (Auto) Lymph % (Auto) [place] % (Auto) Eos % (Auto) Baso % (Auto) Lymph # (Auto) [place] # (Auto) Eos # (Auto) Baso # (Auto) Abs Immat Gran (auto) Absolute Neuts (auto) Absolute Nucleated RBC Nucleated RBC % (auto) Smear Tech's Comments Hold Purple Top SEE NOTE VBG pH 7.28 L VBG pCO2 53 VBG pO2 65 VBG HCO3 25 VBG O2 Saturation 84.0 VBG Base Excess -2.1 Sodium 139 Potassium 4.2 D Chloride 104 Carbon Dioxide 24 Anion Gap 15 BUN 35 H Creatinine 1.40 Estim Creat Clear Calc 43.4 Estimated GFR 51 POC Glucose 156 H Random Glucose 126 H Lactic Acid Calcium 9.3 Phosphorus Magnesium Total Bilirubin AST ALT Alkaline Phosphatase Troponin I High Sens B-Natriuretic Peptide Total Protein Albumin Beta-Hydroxybutyrate 03/20/25 03/20/25 03/20/25 14:54 14:55 14:56 WBC 20.6 H RBC 4.17 L Hgb 13.2 L Hct 39.6 L MCV 95.0 MCH 31.7 MCHC 33.3 RDW 13.5 Plt Count 226 MPV 10.2 Immature Gran % (Auto) 0.5 H Neut % (Auto) 91.7 H Lymph % (Auto) 2.2 L [place] % (Auto) 5.5 Eos % (Auto) 0.0 Baso % (Auto) 0.1 Lymph # (Auto) 0.5 L [place] # (Auto) 1.1 Eos # (Auto) 0.0 Baso # (Auto) 0.0 Abs Immat Gran (auto) 0.11 H Absolute Neuts (auto) 18.8 H Absolute Nucleated RBC 0.000 Nucleated RBC % (auto) 0.0 Smear Tech's Comments VERIFIED Hold Purple Top VBG pH VBG pCO2 VBG pO2 VBG HCO3 VBG O2 Saturation VBG Base Excess Sodium 140 Potassium 4.6 Chloride 106 Carbon Dioxide 24 Anion Gap 15 BUN 35 H Creatinine 1.44 H Estim Creat Clear Calc 42.2 Estimated GFR 50 POC Glucose Random Glucose 96 Lactic Acid 1.2 Calcium 9.3 Phosphorus Magnesium Total Bilirubin 0.3 AST 56 H ALT 39 Alkaline Phosphatase 53 Troponin I High Sens 187.5 H* D B-Natriuretic Peptide 22 Total Protein 6.9 Albumin 3.5 Beta-Hydroxybutyrate 1.06 H 03/21/25 03/21/25 05:45 05:52 WBC 14.8 H RBC 4.31 L Hgb 13.5 L Hct 41.3 L MCV 95.8 MCH 31.3 MCHC 32.7 RDW 13.3 Plt Count 184 MPV 11.0 Immature Gran % (Auto) 0.5 H Neut % (Auto) 82.9 H Lymph % (Auto) 7.4 L [place] % (Auto) 9.0 Eos % (Auto) 0.1 Baso % (Auto) 0.1 Lymph # (Auto) 1.1 L [place] # (Auto) 1.3 H Eos # (Auto) 0.0 Baso # (Auto) 0.0 Abs Immat Gran (auto) 0.07 H Absolute Neuts (auto) 12.3 H Absolute Nucleated RBC 0.000 Nucleated RBC % (auto) 0.0 Smear Tech's Comments VERIFIED Hold Purple Top VBG pH 7.52 H VBG pCO2 30 VBG pO2 51 VBG HCO3 25 VBG O2 Saturation 87.0 VBG Base Excess 3.3 Sodium 140 Potassium 5.1 Chloride 106 Carbon Dioxide 25 Anion Gap 14 BUN 33 H Creatinine 1.07 Estim Creat Clear Calc 56.0 Estimated GFR > 60 POC Glucose Random Glucose 67 Lactic Acid Calcium 9.1 Phosphorus 2.9 Magnesium 2.3 Total Bilirubin AST ALT Alkaline Phosphatase Troponin I High Sens B-Natriuretic Peptide Total Protein Albumin 3.1 L Beta-Hydroxybutyrate Progress Note: A&P Assessment and plan (1) Cardiomyopathy: Status: Acute (2) Anxiety: Status: Acute (3) Asthma-COPD overlap syndrome: Status: Acute (4) Sinus tachycardia: Status: Acute Plan Assessment: 64-year-old gentleman with underlying systolic heart failure, chronic tachycardia, 3 L dependent asthma/COPD overlap syndrome admitted with dyspnea and hypoxia. Plan: Neuro: No acute issues. Cardiac: Tachycardia, improved with beta blockade. Cardiology service care appreciated. Underlying chronic cardiomyopathy. Pulmonary: Acute on chronic hypoxic respiratory failure secondary to COPD exacerbation, improved, continue nebulized bronchodilators. Renal: No acute issues. Endo: No acute issues. GI: No acute issues. ID: No acute issues Heme/Onc: No acute issues. Psych: No acute issues. Miscellaneous: Significant anxiety component. Continue p.r.n. benzodiazepines. Start BuSpar. Methadone for chronic pain. Prophylaxis: Lovenox Diet: Regular Quality Stroke Does the patient have a stroke diagnosis?: No VTE Prior VTE?: No VTE Risk Level:: Medical - moderate - high VTE Device Contraindication: Treatment Not Indicated VTE Drug Contraindication: N/A - Med Ordered
[2025-03-21] MEDS: busPIRone HCl 10 MG TABLET PO (10:44)
[2025-03-21] MEDS: fentaNYL citrate/PF 100 MCG/2 ML VIAL IVPUSH (10:44)
[2025-03-21 11:02] LABS: Troponin-I High Sensitivity 447.5 ng/L (<3.5-35.0)
--- NOTE | 2025-03-21 12:27 | P.DS_ITS ---
DS: Providers Provider Date of Service: 03/21/25 Date of admission: 03/20/25 10:45 Date of discharge: 03/21/25 Primary care physician: Declan Muller MD Consults: 03/18/25 17:14 Consult to Pulmonology Routine Consulting Provider: [facility] Reason for consultation: COPD exacerbation, well known to you 03/21/25 08:42 Consult to Cardiology Routine Consulting Provider: [facility] Reason for consultation: acute cardiomyopathy Has provider been notified: No DS: Transfer Hospital Acceptance Reason for Transfer: Acute cardiomyopathy evaluation Name of Facility: [facility] Accepting Provider: Dr. Swanson DS: Diagnosis Discharge Diagnosis (1) Cardiomyopathy: Status: Acute (2) Anxiety: Status: Acute (3) Asthma-COPD overlap syndrome: Status: Acute (4) Sinus tachycardia: Status: Acute DS: Summary Hospital Course Hospital Course: 64-year-old gentleman with underlying asthma/COPD overlap syndrome on 3 L of supplemental oxygen, systolic heart failure, chronic methadone for pain admitted on 03/18/2025 with dyspnea and hypoxia and treated for COPD exacerbation. Hospital course significant for episode of tachycardia with hypertensive urgency versus emergency associated with severe dyspnea requiring transfer to intensive care unit for close monitoring, resolved with blood pressure/heart rate control with beta blockade. 2D echocardiogram once this a.m. with newly noted decrease in ejection fraction, approximately 10%. Evaluated by Cardiology service with transfer to [facility] requested and granted for acute cardiomyopathy evaluation. Time Attestation Discharge Coordination Time (in mins): 35 Quality: Safe Use of Opioids Does Pt have an Active Cancer Diagnosis on the Problem List?: No Quality: Stroke Does the patient have a stroke diagnosis?: No Physical Exam Vital Signs: Vital Signs: Last Vital Signs Temp 97.7 F 03/21/25 04:00 Pulse 132 H 03/21/25 11:00 Resp 28 H 03/21/25 11:00 BP 107/62 03/21/25 11:00 Pulse Ox 89 L 03/21/25 11:00 O2 Del Method Nasal Cannula 03/21/25 11:00 O2 Flow Rate 2 03/21/25 11:00 FiO2 26 03/21/25 09:00 BMI result Body Mass Index 21.9 Const: General: no acute distress, alert and awake Eyes: Sclerae: sclerae normal EOM: EOMs intact bilaterally Neck: Neck: Yes no lymphadenopathy, Yes trachea midline and Yes supple Resp: Effort & Inspection: normal respiratory effort and no respiratory distress Auscultation: clear to auscultation bilaterally Cardio: Rate: tachycardic Rhythm: regular rhythm Heart sounds: no gal lops, no murmurs and no rubs GI: Palpation (GI): Soft to palpation and Other GI palpation findings present ( Nontender) Auscultation: normal bowel sounds Extrem: General: Yes no pedal edema, No clubbing and No cyanosis DS: Data Data Completed and Pending Labs on day of discharge: Laboratory Results - last 24 hr 03/20/25 03/20/25 03/20/25 12:22 13:10 14:54 WBC 20.6 H RBC 4.17 L Hgb 13.2 L Hct 39.6 L MCV 95.0 MCH 31.7 MCHC 33.3 RDW 13.5 Plt Count 226 MPV 10.2 Immature Gran % (Auto) 0.5 H Neut % (Auto) 91.7 H Lymph % (Auto) 2.2 L Avery % (Auto) 5.5 Eos % (Auto) 0.0 Baso % (Auto) 0.1 Lymph # (Auto) 0.5 L Avery # (Auto) 1.1 Eos # (Auto) 0.0 Baso # (Auto) 0.0 Abs Immat Gran (auto) 0.11 H Absolute Neuts (auto) 18.8 H Absolute Nucleated RBC 0.000 Nucleated RBC % (auto) 0.0 Smear Tech's Comments VERIFIED VBG pH 7.28 L VBG pCO2 53 VBG pO2 65 VBG HCO3 25 VBG O2 Saturation 84.0 VBG Base Excess -2.1 Sodium 140 Potassium 4.6 Chloride 106 Carbon Dioxide 24 Anion Gap 15 BUN 35 H Creatinine 1.44 H Estim Creat Clear Calc 42.2 Estimated GFR 50 POC Glucose 156 H Random Glucose 96 Lactic Acid Calcium 9.3 Phosphorus Magnesium Total Bilirubin 0.3 AST 56 H ALT 39 Alkaline Phosphatase 53 Troponin I High Sens B-Natriuretic Peptide Total Protein 6.9 Albumin 3.5 Beta-Hydroxybutyrate 03/20/25 03/20/25 03/21/25 14:55 14:56 05:45 WBC 14.8 H RBC 4.31 L Hgb 13.5 L Hct 41.3 L MCV 95.8 MCH 31.3 MCHC 32.7 RDW 13.3 Plt Count 184 MPV 11.0 Immature Gran % (Auto) 0.5 H Neut % (Auto) 82.9 H Lymph % (Auto) 7.4 L Avery % (Auto) 9.0 Eos % (Auto) 0.1 Baso % (Auto) 0.1 Lymph # (Auto) 1.1 L Avery # (Auto) 1.3 H Eos # (Auto) 0.0 Baso # (Auto) 0.0 Abs Immat Gran (auto) 0.07 H Absolute Neuts (auto) 12.3 H Absolute Nucleated RBC 0.000 Nucleated RBC % (auto) 0.0 Smear Tech's Comments VERIFIED VBG pH VBG pCO2 VBG pO2 VBG HCO3 VBG O2 Saturation VBG Base Excess Sodium 140 Potassium 5.1 Chloride 106 Carbon Dioxide 25 Anion Gap 14 BUN 33 H Creatinine 1.07 Estim Creat Clear Calc 56.0 Estimated GFR > 60 POC Glucose Random Glucose 67 Lactic Acid 1.2 Calcium 9.1 Phosphorus 2.9 Magnesium 2.3 Total Bilirubin AST ALT Alkaline Phosphatase Troponin I High Sens 187.5 H* D B-Natriuretic Peptide 22 Total Protein Albumin 3.1 L Beta-Hydroxybutyrate 1.06 H 03/21/25 03/21/25 05:52 10:27 WBC RBC Hgb Hct MCV MCH MCHC RDW Plt Count MPV Immature Gran % (Auto) Neut % (Auto) Lymph % (Auto) Avery % (Auto) Eos % (Auto) Baso % (Auto) Lymph # (Auto) Avery # (Auto) Eos # (Auto) Baso # (Auto) Abs Immat Gran (auto) Absolute Neuts (auto) Absolute Nucleated RBC Nucleated RBC % (auto) Smear Tech's Comments VBG pH 7.52 H VBG pCO2 30 VBG pO2 51 VBG HCO3 25 VBG O2 Saturation 87.0 VBG Base Excess 3.3 Sodium Potassium Chloride Carbon Dioxide Anion Gap BUN Creatinine Estim Creat Clear Calc Estimated GFR POC Glucose Random Glucose Lactic Acid Calcium Phosphorus Magnesium Total Bilirubin AST ALT Alkaline Phosphatase Troponin I High Sens 447.5 H* D B-Natriuretic Peptide Total Protein Albumin Beta-Hydroxybutyrate Discharge Plan Discharge Anticipated Discharge Date/Time: 03/21/25 12:27 Patient Disposition: Xfer Acute Care Hospital Discharge Diagnosis: Acute cardiomyopathy Referrals: Declan Muller MD [Primary Care Provider] - 1 Week Discharge Medications: Discontinued melatonin 5 mg tablet 5 mg PO BEDTIME Qty: 90 2RF budesonide 0.5 mg/2 mL suspension for nebulization 0.5 mg inhalation BID 30 Days Qty: 120 3RF arformoterol 15 mcg/2 mL solution for nebulization 2 ml inhalation BID Qty: 120 3RF albuterol sulfate 2.5 mg /3 mL (0.083 %) solution for nebulization 2.5 mg inhalation Q4H PRN (Reason: for wheezing) Qty: 150 0RF roflumilast 500 mcg tablet 500 mcg PO DAILY Qty: 90 3RF theophylline 200 mg tablet extended release 12 hr 200 mg PO Q12H 90 Days Qty: 180 1RF pantoprazole 40 mg tablet,delayed release (DR/EC) 40 mg PO DAILY@0630 meloxicam 15 mg tablet 15 mg PO DAILY PRN (Reason: low back pain) valacyclovir 500 mg tablet 500 mg PO BID fluocinonide 0.05 % cream 1 appl topical BID PRN (Reason: Rash) azithromycin 250 mg tablet 250 mg PO DAILY Rx Instructions: End date 03/22/25 methadone 10 mg tablet 10 mg PO BID prednisone 20 mg tablet 20 mg PO BID bisoprolol fumarate 10 mg tablet 10 mg PO DAILY cholecalciferol (vitamin D3) [Vitamin D3] 25 mcg (1,000 unit) tablet 25 mcg PO DAILY Entresto 49-51 mg tablet 1 tab PO BID Yupelri 175 mcg/3 mL solution for nebulization 175 mcg INHALATION DAILY methadone 10 mg tablet 10 mg PO DAILY PRN (Reason: pain) aspirin 81 mg Tablet,Delayed Release (Dr/Ec) 81 mg PO DAILY lorazepam 1 mg Tablet 1 mg PO DAILY PRN (Reason: Anxiety) Jardiance 10 mg tablet 10 mg PO DAILY cyclobenzaprine 10 mg tablet 10 mg PO BID PRN (Reason: Muscle Spasm) docusate sodium 100 mg capsule 200 mg PO BID PRN (Reason: constipation) cetirizine 10 mg tablet 10 mg PO DAILY ondansetron 4 mg tablet,disintegrating 4 mg PO Q6H PRN (Reason: nausea/vomiting) albuterol sulfate 90 mcg/actuation HFA aerosol inhaler 2 puff inhalation Q4H PRN (Reason: for wheezing) Qty: 1 11RF duloxetine 30 mg capsule,delayed release(DR/EC) 30 mg PO BID No Action (DME) nebulizers Misc See Rx Instructions .Route Rx Instructions: As directed Discharge Orders: Discharge Order (Routine); Ordered 03/21/25 Ordered By: Josué Dennis Activity on Discharge: Bedrest Stand Alone Forms: Patient Portal Discharge page Print Language: Belarusian Care Plan Goals: Acute cardiomyopathy evaluation Health Concerns: Acute cardiomyopathy Plan of Treatment: Acute cardiomyopathy evaluation Assessment: 64-year-old gentleman with underlying systolic heart failure, chronic tachycardia, 3 L dependent asthma/COPD overlap syndrome admitted with dyspnea and hypoxia. Patient with several episodes of dyspnea without hypoxia associated with tachycardia hypertension, resolved with rate control. Echo with newly decreased EF, being transferred to [facility] acute cardiomyopathy evaluation.
[2025-03-21] MEDS: Heparin Sodium,Porcine/1/2NS 25,000 UNIT/250 ML IV.SOLN 7.85 UNIT IVCONT (12:37)
[2025-03-21 12:40] LABS: Hematocrit 42.9 % (42.0-52.0); Hemoglobin 14.7 g/dl (14.0-18.0); Mean Corpuscular HGB Conc 34.3 g/dl (31.0-36.0); Mean Corpuscular Hemoglobin 31.9 pg (27.0-33.0); Mean Corpuscular Volume 93.1 fL (80.0-98.0); Platelet Count 266 X10*3/uL (160-400); Red Blood Count 4.61 X10*6/uL (4.60-5.80); Red Cell Distribution Width 13.3 % (11.0-16.0); White Blood Count 15.3 X10*3/uL (4.8-10.8)
[2025-03-21 12:48] LABS: Prothrombin Time 10.9 SEC (10.9-12.4)
[2025-03-21 12:50] LABS: PTT Heparin Drip 32.4 SEC (53-77.9)
[2025-03-21] MEDS: Atorvastatin Calcium 40 MG TABLET PO (13:37)
--- NOTE | 2025-03-21 13:51 | MHC.CM.PN ---
Pt will transport to [facility] for continued cardio/pulmonary care. ICU is arranging transportation.
--- NOTE | 2025-03-21 14:38 | PC.NURSE ---
Assumed care at approx. 1100- pt. A&Ox4, anxious at times but responds to redirection. C/o chronic back pain, Fentanyl given per DEC with good effect. ST on tele, HR 110s-130s- MD aware. 3L NC, DUARTE and tachypnea at times, 02 sat 90-94%.Heparin gtt initiated per DEC. Pt. accepted to [facility], destination M6 room 25. Report given to Shayy MORA via telephone. Pt. transported via [facility]. Pt. transported off unit at approx. 1430.
[2025-03-21 15:23] LABS: Theophylline 14.6
== END 2025-03-21 14:30 | disposition short-term general hospital (02) | DRG 190 ==
LOC: HO.ED 16:27 → HO.EDOVER 16:34 → HO.S3 03-20 00:06 → HO.ICU 03-20 12:44
PROVIDERS: Hospitalist; Internal Medicine; Nurse Practitioner Family; Student in an Organized Health Care Education/Training Program; Admitting Provider Student in an Organized Health Care Education/Training Program; Emergency Provider Emergency Medicine; PCP Internal Medicine; Visit Provider Internal Medicine Pulmonary Disease
DX: J44.1 Chronic obstructive pulmonary disease with (acute) exacerbation (principal); J96.21 Acute and chronic respiratory failure with hypoxia; J45.901 Unspecified asthma with (acute) exacerbation; I50.22 Chronic systolic (congestive) heart failure; N17.9 Acute kidney failure, unspecified; I42.9 Cardiomyopathy, unspecified; G89.29 Other chronic pain; E87.5 Hyperkalemia; K21.9 Gastro-esophageal reflux disease without esophagitis; B97.81 Human metapneumovirus as the cause of diseases classified elsewhere; I11.0 Hypertensive heart disease with heart failure; Z20.822 Contact with and (suspected) exposure to COVID-19; Z99.81 Dependence on supplemental oxygen; Z87.891 Personal history of nicotine dependence; Z79.891 Long term (current) use of opiate analgesic
CPT/HCPCS: 0241U; 36415; 71045; 74177; 80048; 80053; 80198; 80307; 81003; 82010; 82040; 82803; 82947; 83605; 83735; 83880; 84100; 84484; 85025; 85027; 85379; 85610; 85730; 87040; 87633; 93005; 93306; 93308; 94640; 94660; 94799; 99221; 99285; J0131; J1644; J1650; J1885; J2250; J2270; J2919; J3010; Q9957; Q9967

== ENCOUNTER → 2025-03-18 11:44 | Outpatient (BNV) | payer MEDICARE, MEDICAID, SELFPAY | PROVIDERS: Admitting Provider Student in an Organized Health Care Education/Training Program; Emergency Provider Emergency Medicine; PCP Internal Medicine; Visit Provider Internal Medicine Cardiovascular Disease | DX: R00.0 Tachycardia, unspecified (principal) | CPT/HCPCS: 93010 ==

== ENCOUNTER → 2025-03-18 12:14 | Outpatient (BNV) | payer MEDICARE, MEDICAID, SELFPAY | PROVIDERS: Emergency Provider Emergency Medicine; PCP Internal Medicine; Visit Provider Radiology Diagnostic Radiology | DX: K57.30 Diverticulosis of large intestine without perforation or abscess without bleeding (principal); R06.00 Dyspnea, unspecified; R00.0 Tachycardia, unspecified | CPT/HCPCS: 71045; 74177 ==

== ENCOUNTER → 2025-03-18 16:34 | Outpatient (BNV) | payer MEDICARE, MEDICAID, SELFPAY | PROVIDERS: Admitting Provider Student in an Organized Health Care Education/Training Program; Emergency Provider Emergency Medicine; PCP Internal Medicine; Visit Provider Student in an Organized Health Care Education/Training Program | DX: J44.1 Chronic obstructive pulmonary disease with (acute) exacerbation (principal); R00.0 Tachycardia, unspecified; B34.8 Other viral infections of unspecified site; J45.901 Unspecified asthma with (acute) exacerbation; N17.9 Acute kidney failure, unspecified; E87.5 Hyperkalemia | CPT/HCPCS: 99233 ==

== ENCOUNTER → 2025-03-18 16:34 | Outpatient (BNV) | payer MEDICARE, MEDICAID, SELFPAY | PROVIDERS: Admitting Provider Student in an Organized Health Care Education/Training Program; Emergency Provider Emergency Medicine; PCP Internal Medicine; Visit Provider Hospitalist | DX: J44.0 Chronic obstructive pulmonary disease with (acute) lower respiratory infection (principal); N17.9 Acute kidney failure, unspecified; E87.5 Hyperkalemia; J12.3 Human metapneumovirus pneumonia | CPT/HCPCS: 99291 ==

== ENCOUNTER → 2025-03-20 07:00 | Outpatient (BNV) | payer MEDICARE, MEDICAID, SELFPAY | PROVIDERS: Admitting Provider Student in an Organized Health Care Education/Training Program; Emergency Provider Emergency Medicine; PCP Internal Medicine; Visit Provider Internal Medicine | DX: R94.31 Abnormal electrocardiogram [ECG] [EKG] (principal); R00.0 Tachycardia, unspecified; R06.02 Shortness of breath | CPT/HCPCS: 93010; 93306 ==

== ENCOUNTER 2025-03-20 10:45 | Outpatient (BNV) | payer MEDICARE, MEDICAID, SELFPAY | END 2025-03-20 12:02 | PROVIDERS: Admitting Provider Student in an Organized Health Care Education/Training Program; Emergency Provider Emergency Medicine; PCP Internal Medicine; Visit Provider Radiology Diagnostic Radiology | DX: J44.9 Chronic obstructive pulmonary disease, unspecified (principal) | CPT/HCPCS: 71045 ==

== ENCOUNTER 2025-03-20 10:45 | Outpatient (BNV) | payer MEDICARE, MEDICAID, SELFPAY | END 2025-03-21 07:00 | PROVIDERS: Admitting Provider Student in an Organized Health Care Education/Training Program; Emergency Provider Emergency Medicine; PCP Internal Medicine; Visit Provider Internal Medicine | DX: I50.20 Unspecified systolic (congestive) heart failure (principal) | CPT/HCPCS: 93308 ==

== ENCOUNTER → 2025-03-20 10:45 | Outpatient (BNV) | payer MEDICARE, MEDICAID, SELFPAY | PROVIDERS: Admitting Provider Student in an Organized Health Care Education/Training Program; Emergency Provider Emergency Medicine; PCP Internal Medicine; Visit Provider Internal Medicine | DX: I50.23 Acute on chronic systolic (congestive) heart failure (principal); J96.00 Acute respiratory failure, unspecified whether with hypoxia or hypercapnia; I42.9 Cardiomyopathy, unspecified; R00.0 Tachycardia, unspecified; R79.89 Other specified abnormal findings of blood chemistry; J20.8 Acute bronchitis due to other specified organisms; B97.81 Human metapneumovirus as the cause of diseases classified elsewhere | CPT/HCPCS: 99223 ==

== ENCOUNTER 2025-03-31 09:59 | Outpatient (AMB) | payer MEDICARE, MEDICAID, SELFPAY ==
--- NOTE | 2025-03-31 10:02 | A.OFFVIS_ITS ---
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 Patient states that he had been sick with his respiratory issues for the last 10 years. He was initially diagnosed with pneumonia. He has had bronchoscopies and also apparently a biopsy in the past. I cannot find the results at [facility]. He has also gone to [facility] for further evaluation. He has been on oxygen for his respiratory failure. Currently using inogen. He has had multiple hospitalizations usually add [facility]. He also goes to [facility]. He has had multiple CT scans done for his pulmonary nodules. His last CT scan was done at [facility]. He has been on nebulized therapy as the inhalers have not been effective for him. He recently finished a prednisone taper. He states that his breathing has been a little bit more labored. Moderate severity. The weather has not helped either. He states that he quit smoking many years ago. 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 We did review a CT scan of the chest from 2015 from [facility] demonstrating areas of attenuation, ground-glass opacities along with moderate emphysema. He was asking about the xypher valves and see if he was a candidate for them. 12/23/2022 The patient is here for a hospital follow up visit. He was admitted to [facility] with acute on chronic hypoxic and hypercarbic respiratory failure. He was noted to have CM with acute CHF, EF 15%. Cardiac meds adjusted. PLaced on diuresis. Required BIPAP, although has a hard time tolerating the BIPAP. We did talk about the improtance of non invasive ventilator if he has any evicence of hypercarbia. He was taken off the prednisone and he has been doing ok and he was also taken off the theophylline. HE was placed on digoxin and Entresto, but did not tolerate the entrsto and was changed to an PATIRCIA inhibitor which he is tolerating better. He was also treated got a GI infection. We are requesting the discharge summary at this time. 01/08/2023 the patient is here for pulmonary follow-up visit. He continues to have increased work of breathing. He has a maximal respiratory therapy. Had to come off the theophylline because of his other comorbidities. Is based on the very severe COPD and chronic respiratory failure along with his recent admission with hypercarbic respiratory failure to the hospital will start the patient on noninvasive ventilator. The noninvasive ventilator will help him with improving his gas exchange, improved his prognosis and decrease hospitalizations. 03/17/2023 the patient is here for pulmonary follow-up visit. The patient is feeling a lot better. He is working closely with his cardiac status. He is improving and therefore his respiratory status is improving as well. He feels a lot stronger. He is going to have a repeat echocardiogram and may indeed need a defibrillator if his EF continues to be low. In the meantime the patient did get a noninvasive ventilator. Unfortunately tried multiple masks and cannot sleep with it he tried using it during the daytime he did not tolerated. At this point the patient does not want her continue using it. I did recommend he call the [employer] in order for them to pick it up since he is not using it. We will reassess in the future depending on his CO2 if it starts going up at that time if that is the case we will look into restarting noninvasive therapy. Regards pulmonary nodules he is due for CT scan in July. In addition to all this he is trying to wean off the opiates specially because he has had multiple complications because of the opiates including constipation. Will go ahead and refer him to the [facility] in order for him to look for alternative therapies in view of his severe chronic back and neck pain. This will help his respiratory status as well. 08/11/2023 the patient is here for pulmonary follow-up visit. He was recently seen for a COPD exacerbation. He was evaluated back the end of July he was placed on Vantin and also prednisone he did not take prednisone. The is still coughing although the cough is better less productive is still not gain. Moderate severity. The patient did have a chest x-ray without any acute disease at that time. He continues with respiratory therapy. His cardiac status is stable. He has a hard time expectorating. He does have a flutter valve. I did encourage him for him to use it. The patient will go ahead and start Bactrim. If he still having a productive cough I did provide him with sputum cup in order for him to provide. 11/13/2023 the patient is here for a pulmonary follow-up visit. He is finally feeling better. Overall in a much better health state. He has been continue to use his cardioprotective medications and seems to be feeling better from the standpoint. He did recently have an echocardiogram he does not know the results. I am hopeful that his EF has gotten better. In addition to that he has no longer taking prednisone or antibiotics. He is regimen is back to his baseline. His breathing is well. He is using his oxygen with good effect. He continues his IVIG infusions every 4 weeks. The patient does have severe COPD based on his PFTs that he had back in July 2022. Now he has in a good place to start pulmonary rehabilitation. Therefore since it is close to [facility] will send a referral there. He can start rehab and close monitoring specially with underlying cardiac and pulmonary disease. After that he probably can do it on his own. 03/23/2024 the patient is here for a pulmonary follow-up visit. Overall the patient is doing a lot better. He has been stronger from the heart standpoint which is reassuring. He received respiratory medicines are also helping. He has been able to be off the oxygen which those were reassuring. Has multiple surgeries however that are pending. He is having hand surgery and also needs dental surgery and back surgery. Will go ahead and repeat his pulmonary function studies to assess his capacity. His last PFTs very significant for a very severe obstruction. Therefore he ended needs to understand that he is high risk for perioperative pulmonary complications. Therefore all the non invasive alternative options need to be looked into to see if surgery and anesthesia can be avoided altogether. Is surgery seeing only option then the patient is indeed medically optimized to undergo surgery. Will go ahead and repeat his PFTs. The patient is also having some slight discomfort right below the ribcage on the left. Pleuritic in nature. Likely musculoskeletal. I will have him get an x- ray. Also reproducible therefore could be musculoskeletal. The patient does not have any rash. He did get vaccinated for shingles. He will have an x-ray and if he has not getting better in the next several weeks he can always call so we can readdress it. 07/07/2024 the patient is here for a pulmonary follow-up visit. Overall he is doing well. He is staying active. His respiratory status are pretty much baseline. He is using the oxygen with activity with good effect. The patient also has been using all his nebulized therapy. He did require antibiotics several months ago. He did recover fully which is reassuring. He is starting to develop a respiratory illness at this time. Will make sure that he has proper medications available to start therapy if he worsens. He tends to worsen quickly. In the meantime he needs to undergo pulmonary function studies. We had had to cancel him because of lack of availability. But now which should be able to schedule them at this time. Therefore he will continue with current respiratory therapy will follow-up in 3 months after his PFTs. If he develops any worsening issues prior to that he will call for an earlier assessment. 08/24/2024 the patient is here for a pulmonary follow-up visit. Since we last spoke he was diagnosed with pneumonia. He had a CT scan a [facility]. Demonstrated basilar consolidations. In addition to that x-rays demonstrating the same. Left more than right. The patient did have a repeat chest x-ray here [place] about a week ago. I did review. Has not been officially read but I can not appreciate any airspace disease. The appears to be better this time. This is all reassuring. He did complete the antibiotics and he is completing course of prednisone. He did recently start the theophylline. We start him on low-dose. He is going to monitor closely for any cardiac adverse effects especially with his cardiac history. But at this point the patient does have advanced pulmonary disease will trying to provide him with optimize care. If however he can not tolerate theophylline he can stop it. Other options include other alternative respiratory medications that have become available. We also talked about Dupixent. Will go ahead and recheck his eosinophils to see if he is a candidate for that. in addition to that we did talk about lung volume reduction intervention. May be a good candidate for this. I will have him look into it to learn about it a little bit more. He c ontinues to exercise regularly. will also have him get blood work including a blood gas. If his CO2 is elevated will going to talk about a noninvasive ventilator that would also help him with his advanced respiratory failure. The patient will follow-up in a couple months. He is scheduled to have PFTs soon. 10/06/2024 the patient has a telehealth visit today. He is on feeling well so therefore decided to stay home. The patient recently went to a and afterwards he was very tired. He denies any sick contacts at this time. Although he will monitor closely for any worsening symptoms. He continues to have frequent exacerbations and shortness of breath. He did undergo pulmonary function studies which we did review. He still has a very severe obstruction although slightly better than before although he seems to have worsening diffusing capacity. Likely this is resulting in a decreased respiratory reserve in worsening symptoms. The patient has been medically optimized. Will go ahead and see if he is a candidate for Dupixent. Therefore her come in and will can check his eosinophil count. In addition to that will go ahead and check a venous gas. The patient does have worsening respiratory failure so therefore may be a good candidate for noninvasive ventilator to help him with the work of breathing. Potentially decrease exacerbations and decrease hospitalizations. Therefore he will come in for the blood gas when he comes in for the blood work. In addition to that he may be a good candidate for Ohtuvayre this will provide additional bronchodilation of the airways and his limited state. This may provide some relief. The patient will return couple months and will at that point talk about lung volume reduction interventions as well as another option moving forward. 01/03/2025 the patient is here for a pulmonary follow-up visit. He has had a hard time breathing for the last several weeks. He has been taking 10 mg of prednisone that appears to be helping him. He has multiple exacerbations a year. For the last year he has had about 5 already where he has needed prednisone. Be a great candidate for Dupixent at this time. He has had elevat ed eosinophils up to 300. However, since he has been on prednisone is hard to measure. I will go ahead and see if we can get Dupixent cover for him in order to decrease his exacerbation improve his respiratory status in addition to that we did request Ohtuvayre nebulizer therapy but has not been approved as of yet. He continues right now with the prednisone for now. The patient also will be fo llowing up with Cardiology regarding the need for defibrillator. Once the patient is stable from a cardiac status the patient is interested in pursuing evaluation for lung transplantation. Not clear if he will need a heart lung transplantation if he qualifies. The patient also was diagnosed melanoma. That was biopsy-proven. Now he is going to undergo surgery and see the extent of it as well. If there is any evidence of any significant extension then we should try to facilitate a CT scan at an earlier time. Otherwise we can wait till the summer to follow-up after his last CT scan back in 06/07/2024. He did have a chest x-ray which I personally reviewed and demonstrates some interstitial changes, slightly more on the left hemithorax. 03/31/2025 the patient is here for a hospital follow-up visit. The patient was exposed to sick contacts in the home and started developing worsening respiratory complaints abdominal pain and tachycardia. He came into the [facility] ED. there he did swab positive for human metapneumovirus. During the hospital stay he started developing worsening tachycardia significant elevations in the blood pressure and also persistent abdominal pain. He was transferred to the ICU for a decompromise state with hypertensive urgency. He did develop a demand myocardial infarction based on the blood work. He did have an echocardiogram demonstrating an EF of 10-15%. Some akinetic wall abnormalities. 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 His cardiac medications were adjusted by Cardiology here. During the hospital stay the patient also had blood work done demonstrating significant hypercarbia consistent with acute on chronic respiratory failure. We did review his PFTs demonstrating a significantly decreased FEV1 and FVC consistent with very severe COPD. With his worsening work of breathing due to his COPD poor gas exchange he does carry a poor prognosis and high risk for rehospitalization. Therefore the patient will be a great candidate for noninvasive ventilator to improve his gas exchange improved his prognosis and decrease hospitalizations. Will work with a local [employer] company in order to get him started on a noninvasive ventilator such as the astral. The patient is agreeable at this time. He will continue to use his oxygen as prescribed. He will continue his current medicines. He is still weaning off the prednisone. I will send him additional prednisone. Will also keep him on some doxycycline for his immunodeficiency for prophylactic therapy. The patient follow-up in 6-8 weeks. If he has any worsening issues prior to that he will call for an earlier assessment. ON LICENSE OF [facility] Medical History (Updated 03/31/25 @ 10:28 by Paulino Ba MD) ALOK (obstructive sleep apnea) Infection due to human metapneumovirus (hMPV) Human metapneumovirus (hMPV) pneumonia Transient global amnesia Chronic respiratory failure Pleuritic chest pain Pre-op chest exam Chondrocalcinosis Chronic neck and back pain Asthma Asthma-COPD overlap syndrome Asthma FH: bowel obstruction Bronchitis Pulmonary nodules Back pain Dyspnea COPD (chronic obstructive pulmonary disease) Surgical History Hx of colonoscopy History of esophagogastroduodenoscopy (EGD) History of partial colectomy History of hernia repair History of lung biopsy Family History Mother History of lung cancer Social History Household Members: Spouse and Caregiver Household Members Other:: son, daughter, 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, 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 Housing: House Do you presently have visiting nurse or other home services: No (business 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 only) Alcohol intake: former Patient Tobacco Use Status: Former Tobacco user Tobacco use type: Cigarette Cigarette Packs Per Day: 1 Cigarettes Per Day: 20.0 Years Smoked: 8 Second Hand Smoke Exposure: No Substance Use Type: Caffiene service: No Current occupational status: disabled Review of Systems Const Reports fatigue, Denies fever(s), Denies headache(s), Denies night sweats and Denies poor appetite ENT Reports Normal hearing present, Denies change in voice, Denies headache(s), Denies lip swelling, Denies mouth pain, Reports nasal congestion, Reports nasal discharge, Reports neck pain and Denies tongue swelling Card Denies chest pain, Reports dyspnea and Reports dyspnea on exertion Resp Denies change in phlegm color, Denies chest congestion, Reports cough, Denies hemoptysis, Denies excessive phlegm production, Denies pain on inspiration, Reports dyspnea, Reports dyspnea on exertion and Reports wheezing GI Denies abdominal pain Musc Denies no additional complaints, Reports back pain and Reports neck pain Skin/Breast Reports lesions Neuro Reports Normal hearing present, Denies Neuro-related abnormal movements and Denies headache(s) Psych Denies no additional complaints Endo Reports fatigue Marcel/Lymph Denies easy bleeding and Denies lymphadenopathy Aller/Immun Denies lip swelling, Denies tongue swelling and Reports wheezing Physical Exam Vital Signs: Last Vital Signs Pulse 89 03/31/25 10:03 BP 84/60 L 03/31/25 10:03 Pulse Ox 99 03/31/25 10:03 Oxygen Delivery Method Nasal Cannula 03/31/25 10:03 Oxygen Flow Rate 3 03/31/25 10:03 BMI result Body Mass Index 21.5 Last Vital Signs Temp 98.1 F 03/19/25 20:05 Pulse 118 H 03/19/25 20:05 Resp 25 H 03/19/25 20:05 BP 125/83 03/19/25 20:05 Pulse Ox 94 03/19/25 20:05 O2 Del Method Nasal Cannula 03/19/25 20:05 O2 Flow Rate 3 03/19/25 20:05 BMI result Body Mass Index 23.0 Const Orientation/consciousness: patient oriented x3 Neck Neck: Yes normal visual inspection Chest Chest palpation & inspection: normal inspection of the chest Resp Effort & Inspection: normal respiratory effort and prolonged expiratory phase Auscultation: diminished lung sounds Cardio Heart sounds: S1 normal heart sound present and S2 normal heart sound present GI Palpation (GI): Soft to palpation Skin General skin exam: no rashes or lesions noted Neuro General: patient oriented x3 Cranial nerves: Yes Normal hearing present Extrem Right upper extremity: no cyanosis Assessment & Plan Assessment & Plan (1) Chronic respiratory failure: Code(s): J96.10 - Chronic respiratory failure, unspecified whether with hypoxia or hypercapnia Category: Medical Qualifiers: Respiratory failure complication: hypoxia Qualified Code(s): J96.11 - Chronic respiratory failure with hypoxia (2) ALOK (obstructive sleep apnea): Code(s): G47.33 - Obstructive sleep apnea (adult) (pediatric) Category: Medical (3) COPD (chronic obstructive pulmonary disease): Comment: very severe Code(s): J44.9 - Chronic obstructive pulmonary disease, unspecified Category: Medical Qualifiers: COPD type: emphysema Emphysema type: centrilobular Qualified Code(s): J43.2 - Centrilobular emphysema (4) Dyspnea: Code(s): R06.00 - Dyspnea, unspecified Category: Medical Qualifiers: Dyspnea type: dyspnea on exertion Qualified Code(s): R06.00 - Dyspnea, unspecified (5) Pulmonary nodules: Code(s): R91.8 - Other nonspecific abnormal finding of lung field Category: Medical (6) Cardiomyopathy: Code(s): I42.9 - Cardiomyopathy, unspecified Category: Medical Qualifiers: Cardiomyopathy type: unspecified Qualified Code(s): I42.9 - Cardiomyopathy, unspecified (7) Asthma-COPD overlap syndrome: Code(s): J44.9 - Chronic obstructive pulmonary disease, unspecified Category: Medical (8) Melanoma: Code(s): C43.9 - Malignant melanoma of skin, unspecified Category: Medical Qualifiers: Melanoma location: overlapping sites Qualified Code(s): C43.8 - Malignant melanoma of overlapping sites of skin Plan diuresis as tolerated Continue respiratory therapy: Daltdp, VenessaaMariana start Ohtuvayre nebs start Doxycycline ? Dupixent, with frequest exercerbations RAFAELA as needed continue oxygen 2 L with activity. He does use a POC for portability outside of the home ([employer]) CPT with Acapella valve. Theophylline low dose continue prednisone 10mg daily for now The patient has a poor prognosis due to COPD and respiratory failure. He has evidence of hypercarbia and very severe COPD based on PFTs. He has significant work of breathing. I recommend that he start non invasive ventilation to improve gas exchange and improve prognosis and decrease hospitalizations. I will rx Astral through [employer]. consider referral to [facility] transplant center, for now needs to continue addressing cardiac issues and new skin cancer. follow-up in 2 months Orders: Orders RT PSG in-lab sleep study 03/31/25 G47.33 - Obstructive sleep apnea (adult) (pediatric), J96.11 - Chronic respiratory failure with hypoxia Medications: New prednisone 10 mg PO BID 60 tabs 1RF 30 days doxycycline monohydrate 100 mg PO DAILY 28 tabs 1RF 28 days Coding Level of Care Code Est Pt Level 5 (22310) Diagnoses Chronic respiratory failure with hypoxia J96.11 Respiratory failure complication: hypoxia ALOK (obstructive sleep apnea) G47.33 Centrilobular emphysema J43.2 COPD type: emphysema Emphysema type: centrilobular Dyspnea on exertion R06.00 Dyspnea type: dyspnea on exertion Pulmonary nodules R91.8 Cardiomyopathy, unspecified type I42.9 Cardiomyopathy type: unspecified Asthma-COPD overlap syndrome J44.9 Malignant melanoma of overlapping sites C43.8 Melanoma location: overlapping sites Time Spent (min) 60
[2025-03-31 10:03] VITALS: BP 84/60; PULSE 89; O2SAT 99; BMI 21.5
--- OUTSIDE RECORDS SUMMARY | 2025-03-31 10:42 | XMS_ITS | Data Portability ---
Author Organization [place] - [facility] Address [address] [place] [address] Care Team Providers Care Grain Drier Name Role Phone TRINIDAD WYMAN Primary Care Provider ZAIDA ARAGON Railroader Assessment Encounter Date Assessment Date Assessment LastModified by Organization Details LastModified Time 08/23/2021 08/23/2021 Proper Personal Protective Equipment (PPE), including gloves, gown, shoe covers, eye protection and masks were donned and doffed appropriately and all equipment cleaned using approved technique with germicidal disposable wipes prior to and after care of this patient according to [facility]'s infection prevention protocols. Overview/History: 61 yo male [...] I have accessed patient records on the [employer]. This information was pertinent in my medical decision making today. [email or web address] Not available 08/23/2021 15:53:20 09/12/2021 09/12/2021 Overview/History [...] after care of this patient according to [facility] infection prevention protocols. Time On Scene with [...] after care of this [facility]. Time On Scene with Patient: 00:27:04 [email or web address] Not available 11/11/2021 12:06:04 01/15/2022 01/15/2022 Overview/History [...] narcotics) with dull percussion lower quadrants. No [place] or pain to palpation. DDx considered, but not limited to: Acute on chronic COPD exacerbations Pneumonia: fever, cough prod thick dowling/green Influenza: neg rapid Viral URI Constipation: will check KUB Obstruction/ileus/ perforation due to history and concern. Low probability but checking KUB for stool as well Work up/Results: CBCD, [place] [facility] Rapid flu neg CXR, KUB to be [...] after care of this patient according to [facility]'s infection prevention protocols. [email or web address] Not available 01/15/2022 18:33:51 01/16/2022 01/16/2022 Time On Scene with Patient: 00:32:07 - Referred - Point of Care: Emergency Department [email or web address] Not available 01/16/2022 14:47:54 Plan of Treatment Reminders Order Date Submit Date Provider Last Modified By Organization Details Last Modified Time Details Appointments None recorded. Lab rapid flu (A+B) 2021 022 deidre Spr - Home, [address] [place] [address], [address], 17:59:25 CBC w/ auto diff - Collected by [facility] ealt 2021 LEROY [facility] (Centralized Electronic Ordering - All Locations), Patient Can Go To The Location Of Their Choice, [id number] 00:19:19 CMP, serum or plasma 2021 LEROY [facility] (Centralized Electronic Ordering - All Locations), Patient Can Go To The Location Of Their Choice, [id number] 00:52:42 rapid SARS CoV + SARS CoV 2 Ag, QL IA, respirato ry specimen 2020 [facility] - Home, [address] [place], [address], 15:40:14 unlisted lab - covid-19 (novel coronavir us) PCR 2020 [email or web address] [facility] (Centralized Electronic Ordering - All Locations), Patient Can Go To The Location Of Their Choice, [id number] 13:54:49 Referral None recorded. Procedures None recorded. Surgeries None recorded. Imaging XR, abdomen 2021 [facility], [address] [place], [address], 06:47:37 XR, chest, 2 view 2021 [facility], [address] [place], [address], 2 06:52:34 XR, chest, 2 view - pt has stage 4 COPD 2021 [facility], [address] [place], [address], 2 11:29:01 XR, chest, 2 view - pending COVID PCR 2020 [facility] ([facility] [address] , [address], [place], [address], 13:34:12 XR, chest, 2 view - Ordered by [facility]; R/O rib fractures left chest around 7th/8th ribs, chronic bronchiti s, vs acute PNA vs pulmonary contusion 2020 021 [email or web address] [facility], [address] [place], [address], 16:45:10 Medication Orders doxycycli ne hyclate 100 mg capsule 2021 022 [facility]2024, [address] [place], [address], 20:02:32 prednison e 20 mg tablet 2021 022 [facility]2024, [address] [place], [address], 2 16:56:55 prednison e 10 mg tablet 2021 022 [facility]2024, [address] [place], [address], 16:57:00 prednison e 10 mg tablet 2020 021 [facility]2024, [address] [place], [address], 2 16:57:00 doxycycli ne hyclate 100 mg capsule 2020 [facility] [address] [place], [address], 15:08:02 prednison e 20 mg tablet 2020 021 [facility], [address] [place], [address], 03/30/202 2 16:56:55 Patient TargetsNo targets recorded. Patient Instructions Encounter Date Encounter Id Patient Instructions Last Modified By Organization Details Last Modified Time 08/23/2021 [id number] Inhaler Instructions Before use, you need to [...] after cleaning actually helps it work better. [email or web address] Not available 08/23/2021 14:38:30 09/12/2021 [id number] Thank you for yo ur visit with [facility] today. We cannot always find the exact [...] in your condition between 8am-10pm, please call [facility] at [phone] to help navigate your care. Not available 09/12/2021 20:52:18 01/15/2022 [id number] -Wrote all above instruction out due to [...] ng. Resul t repor kingsley to the [facility]. To preve nt error s in [...] perfo rmed by real time PCR [facility] [email or web address] SARS- CoV-2 test. Not Available [facility] (Centralized Electronic Ordering - All Locations) Patient Can Go To The Location Of Their Choice, [id number] 09/23/2021 15:12:17 09/12/20 21 09/13/2021 COVID -19 (NOVE L CORON AVIRU S) PCR covid-19 PCR specimen source NASAL Not Available [facility] (Centralized Electronic Ordering - All Locations) Patient Can Go To The Location Of Their Choice, [id number] 09/23/2021 15:12:17 09/12/20 21 09/12/2021 rapid SARS CoV + SARS CoV 2 Ag, QL IA, respi rator y speci men Covid-19 (ref: neg) negati ve Not Available [facility] - Home [address] [place], [address], 09/12/2021 15:39:33 09/12/20 21 09/12/2021 rapid SARS CoV + SARS CoV 2 Ag, QL IA, respi rator y speci men Control Visual ized/V alid Not Available [facility] - Home [address] [place], [address], 09/12/2021 15:39:33 09/12/20 21 09/12/2021 rapid SARS CoV + SARS CoV 2 Ag, QL IA, respi rator y speci men Location [facility], [address] [place] [address], [id number] Not Available Spr - Home [address] [place], [address], 09/12/2021 15:39:33 09/12/20 21 09/12/2021 rapid SARS CoV + SARS CoV 2 Ag, QL IA, respi rator y speci men Race & Ethnicity Other White Not Available Spr - Home [address] [place], [address], 09/12/2021 15:39:33 09/12/20 21 09/12/2021 rapid SARS CoV + SARS CoV 2 Ag, QL IA, respi rator y speci men Language Englis h Not Available Spr - Home [address] [place], [address], 09/12/2021 15:39:33 01/16/2001/15/2022 COMPL ETE CBC WITH [...] ve Not Available Spr - Home [address] [facility] [place], [address], 01/15/2022 17:36:50 01/16/20 22 01/15/2022 rapid flu (A+B) Flu B (ref: neg) negati ve Not Available Spr - Home [address] [facility], [place], [address], 01/15/2022 17:36:50 01/16/20 22 01/15/2022 rapid flu (A+B) Control Visual ized/V alid Not Available Spr - Home [address] [facility], [place], [address], 01/15/2022 17:36:50 01/16/20 22 01/15/2022 rapid flu (A+B) Location [facility], [address] [facility], [place] [address], [id number] Not Available Spr - Home [address] [facility], [place], [address], 01/15/2022 17:36:50 08/26/20 21 08/26/2021 XR, chest , 2 view No observ ation record ed. [email or web address] [facility] Scheduling (Inpatient) [address] [place], [address], 08/26/2021 11:43:00 09/13/20 21 09/13/2021 XR, chest , 2 view No observ ation record ed. [facility] ([facility]) [address] , [address], [place], [address], 09/15/2021 12:49:20 11/12/19 22 11/11/2021 XR, chest , 2 view No observ ation record ed. [email or web address] [facility] [address] [place], [address], 11/14/2021 18:55:38 01/22/20 22 01/20/2022 XR, abdom en No observ ation record ed. [email or web address] Not Available 07/2022 14:38:41 01/22/20 22 01/20/2022 XR, chest , 2 view No observ ation record ed. [email or web address] [facility] (Imaging) [address], [place], [address], 01/26/2022 14:38:46 Result Notes None recorded. Problems Name Problem SNOMED Code Status Onset Date Resolution Date Notes Provider Name and Address Organization Details Recorded Time Hypertensive disorder 25057934 Active 2018 FANNY LINARES NP [address], [place], [address], [place] [facility] 9 20:30:11 Problem Notes None recorded. Procedures Surgical History Date Name Laterality Status Provider Name and Address Organization Details Recorded Time 9 IV Start Procedure - completed ANAMARIA ALFARO [address], [place], [address], [place] [facility] 07/10/2019 21:56:04 9 IV Start Procedure - completed DENISE SCOTT NP [address], [place], [address], [place] [facility] 06/18/2019 16:39:55 9 Nebulizer treatment - completed DENISE SCOTT NP [address], [place], [address], [place] [facility] 06/19/2019 00:03:30 fixation of intestine completed Milady KEEN NP [address], [place], [address], [place] [facility] 09/12/2021 15:09:52 Imaging Results None recorded. Procedure Notes None recorded. Medical Equipment None Reported. Allergies Allergen ID Allergen Name Allergen Category Reaction Reaction Severity Criticality Documentation Date Start Date Code Code System Note Provider Name and Address Organization Details Recorded Time 896746 Cipro medicatio n Not available Not available Not available 09/12/202110886 3 RxNorm Milady KEEN, TERRANCE [address], [place], [address], [place] [facility] 15:06:28 100555 Levaquin medicatio n Not available Not available Not available 09/12/2021 21160 2 RxNorm Milady KEEN, MOVIE STAR [address], [place] [facility] [place], [address], [place] [facility] 15:06:39 027318 Bactrim medicatio n Not available Not available Not available 09/12/2021 27492 9 RxNorm dizzi ness Milady KEEN, MOVIE STAR [address], [place] [facility] [place], [address], [place] [facility] 15:32:53 [...] Not Available Not Available BD Regular Bevel [place] 18 gauge x 1 09/12 completed Not [...] [degF] 138 mm[Hg] 90 mm[Hg] Not Available [facility] 2 16:59:38 Date Recorded Body temperature Oxygen saturation Oxygen saturation in Arterial blood by Pulse oximetry Heart rate Respiratory rate Systolic blood pressure Diastolic blood pressure Provider Name and Address Organization Details Last Updated DateTime 2 98.8 [degF] 93 % 93 % 110 /min 20 /min 118 mm[Hg] 82 mm[Hg] Not Available [facility] 2 14:22:28 Date Recorded Respiratory rate Body temperature Oxygen saturation Oxygen saturation in Arterial blood by Pulse oximetry Heart rate Systolic blood pressure Diastolic blood pressure Provider Name and Address Organization Details Last Updated DateTime 1 16 /min 97.8 [degF] 95 % 95 % 80 /min 124 mm[Hg] 78 mm[Hg] Not Available [facility] 1 14:44:36 Date Recorded Oxygen saturation Oxygen saturation in Arterial blood by Pulse oximetry Provider Name and Address Organization Details Last Updated DateTime 09/12/2021 95 % 95 % Milady KEEN NP [address], [place], [address], [place] [facility] 09/12/2021 20:20:55 Date Recorded Respiratory rate Oxygen saturation Oxygen saturation in Arterial blood by Pulse oximetry Inhaled oxygen flow rate Heart rate Body temperature Systolic blood pressure Diastolic blood pressure Provider Name and Address Organization Details Last Updated DateTime 1 18 /min 99 % 99 % 3 L/min 90 /min 97.6 [degF] 122 mm[Hg] 80 mm[Hg] Not Available [facility] 1 15:17:24 Social History Question Answer Notes LastModified by Organizat ion Details LastModified Time Tobacco Smoking Status Former Smoker FANNY LINARES, TERRANCE [address], [place], [address], [place] [facility] 02/14/2019 20:30:34 Do You [...] SNOMED-CT Code Diagnosis ICD10 Code Diagnosis Note [id number] FANNY LINARESTERRANCE [facility] - HOME [address] [place] [address] 02/14/2019 20:20:29 02/15/2019 13:19:41 Strain of neck muscle 417911723 S16.1XXA [id number] DENISE SCOTT MOVIE STAR [facility] - [facility] [address] [place] [address] 06/18/2019 14:19:58 06/21/2019 14:15:53 Dyspnea 926312401 R06.02 Acute exac erbation of chronic obstructive pulmonary disease 163124463 J44.1 [id number] DENISE SONIA MOVIE STAR [facility] - [facility] [address] [place] [address] 06/25/2019 13:50:21 06/26/2019 11:26:51 Dyspnea 539168684 R06.02 Cough 38516333 R05 chronic Anxiety 25320922 F41.9 takes lorazepam. May be increased given prednisone use. [id number] ANAMARIA ALFARO [facility] - HOME [address] [place] [address] 06/29/2019 20:09:41 06/30/2019 13:56:44 Acute exacerbation of chronic obstructive pulmonary disease 166412467 J44.1 [id number] BERONICA HU MS [facility] - HOME [address] [place] [address] 07/10/2019 10:23:10 07/11/2019 11:32:34 Pneumonia 358211201 J18.9 Headache 24549144 R51 Mild dehydration 2682495 119 108 E86.0 Acute exac erbation of chronic obstructive pulmonary disease 642842512 J44.1 [id number] BERONICA HU MS [facility] - [facility] [address] [place] [address] 11/03/2019 15:07:16 11/04/2019 12:01:15 Impacted cerumen of bilateral ears 7933805776 557946 H61.23 [id number] ANAMARIA JOHNSON [facility] - HOME [address] [place] [address] 02/12/2021 16:23:46 02/13/2021 14:31:47 Acute appendicitis 37731032 K35.80 [id number] VERONICA BIANCHI, MOVIE STAR [facility] - [facility] [address] [place] [address] 08/23/2021 14:35:56 08/29/2021 12:47:06 Acute exacerbation of chronic obstructive pulmonary disease 639808374 J44.1 Rib pain 437643652 R07.8 1 8th to 9th rib on the left [id number] Milady KEEN, MOVIE STAR [facility] - [facility] [address] [place] [address] 09/12/2021 14:59:32 09/18/2021 12:05:22 Exposure to SARS-CoV-2 001909118 Z20.822 Chronic ob structive pulmonary disease 76907402 J44.9 Postviral cough 64399928 4 R05.9 previously completed 2 courses of doxycyclin e 100 mg PO BID x 7 daysthen took 2 doses of bactrim that he started yesterday but stopped after feeling dizzy and high Exposure t o communicable disease 112419202 Z20.822 [id number] DARELL MARTEL NP [facility] - HOME [address] [place] [address] 11/10/2021 16:21:10 11/13/2021 08:53:23 Acute exacerbation of chronic obstructive pulmonary disease 855441384 J44.1 [id number] Jacki Root NP [facility] - HOME [address] [place] [address] 01/15/2022 16:53:35 01/16/2022 13:47:02 Fever 736797667 R50.9 Dyspnea 469022776 R06.00 Acute exac erbation of chronic obstructive pulmonary disease 025299132 J44.1 Constipation 68823473 K5 9.00 [id number] ANAMARIA Cartagena [facility] - [facility] [address] [place] [address] 01/16/2022 13:42:37 01/18/2022 11:32:31 Acute exacerbation of chronic obstructive pulmonary disease 163750956 J44.1 Aj has had 2 doses doxycyclin e, his WBC count was 28 k, he did not make it today to have his chest xray, therefore he will go to [facility] ED for eval. I did call [...] Name 08/23/2021 1 *SELF PAY* Altaf Butt [id number] Aj Butt 08/23/2021 1 [place] B[place] [facility] Altaf Butt [id number] Aj Butt 08/23/2021 1 [place] [facility] Aj Butt [id number] Aj Butt 08/23/2021 2 [place] [facility] Altaf Butt [id number] Aj Butt 08/23/2021 1 [place] [facility] Altaf Butt [id number] Aj Butt 01/16/2022 1 [place] [facility] Aj Butt [id number] Aj Butt 08/23/2021 1 *SELF PAY* jA Butt [id number] Aj Butt 01/20/2022 2 [place] [facility] Aj Butt [id number] Aj Butt Notes Date Note Type Note [...] vomiting or diarrhea. VERONICA BIANCHI, TERRANCE [address] [facility] [place], [address], [place] [facility] 08/23/2021 15:56:29 09/12/2021 text/html [...] Pfizer. Milady KEEN NP [address], [place], [address], [place] [facility] 09/12/2021 20:52:44 11/10/2021 text/html Onset three days Location upper respiratory Duration intermittent Characteristics mild Aggravates/Alleviates no known factors DARELL MARTEL NP [address], [place], [address], [place] [facility] 11/11/2021 12:09:09 01/15/2022 text/html [...] Left sided back pain. Has not seen safety associate in a while but thinks he has [...] today Jacki Root, TERRANCE [address], [place], [address], [place] [facility] 01/15/2022 20:02:45 01/16/2022 text/html [...] started today. ANAMARIA Cartagena [address], [place], [address], [place] [facility] 01/16/2022 15:02:36
== END 2025-03-31 10:33 | disposition home or self-care (01) ==
LOC: HO.HPS 09:59
PROVIDERS: PCP Internal Medicine; Visit Provider Hospitalist
DX: J96.11 Chronic respiratory failure with hypoxia (principal); G47.33 Obstructive sleep apnea (adult) (pediatric); J43.2 Centrilobular emphysema; R91.8 Other nonspecific abnormal finding of lung field; I42.9 Cardiomyopathy, unspecified; J44.9 Chronic obstructive pulmonary disease, unspecified; C43.8 Malignant melanoma of overlapping sites of skin
CPT/HCPCS: 99215

== ENCOUNTER → 2025-03-31 09:59 | Outpatient (BNVA) | payer MEDICARE, MEDICAID, SELFPAY | PROVIDERS: PCP Internal Medicine; Visit Provider Hospitalist | DX: J96.11 Chronic respiratory failure with hypoxia (principal); J44.9 Chronic obstructive pulmonary disease, unspecified; J43.2 Centrilobular emphysema; G47.33 Obstructive sleep apnea (adult) (pediatric); R06.00 Dyspnea, unspecified; R91.8 Other nonspecific abnormal finding of lung field; I42.9 Cardiomyopathy, unspecified; C43.8 Malignant melanoma of overlapping sites of skin | CPT/HCPCS: 99212 ==

== ENCOUNTER 2025-04-22 22:58 | Emergency (ER) | payer MEDICARE, MEDICAID, SELFPAY ==
[2025-04-22 23:08] VITALS: BP 103/64; PULSE 91; RESP 18; TEMP 36.6; O2SAT 96; BMI 22.3
--- NOTE | 2025-04-22 23:53 | ED.EXTPRO ---
HPI - Extremity Problem General Chief complaint: Extremity Injury, Upper Stated complaint: right hand fish hook stuck Time Seen by Provider: 04/22/25 23:32 Source: patient Mode of arrival: ambulatory Limitations: no limitations History of Present Illness ED Provider: HPI Narrative: Patient's accidentally got fish hook in his right middle finger while he was trying to remove from his shoe no other injuries patient does not remember his last tetanus shot Related Data Home Medications ?Medication ?Instructions ?Recorded ?Confirmed nebulizers 01/08/23 08/24/24 albuterol sulfate 2.5 mg/3 mL mg inhalation wheezing 03/31/25 (0.083 %) solution for nebulization albuterol sulfate 90 mcg/actuation inhalation 03/31/25 aerosol inhaler aspirin 81 mg tablet 81 mg PO DAILY 03/31/25 bisoprolol fumarate 10 mg tablet 10 mg PO DAILY 03/31/25 cetirizine 10 mg tablet 10 mg PO DAILY PRN sinusitis 03/31/25 cholecalciferol (vitamin D3) 25 25 mcg PO DAILY 03/31/25 mcg (1,000 unit) tablet (Vitamin D3) cyclobenzaprine 10 mg tablet 10 mg PO BID PRN 03/31/25 docusate sodium 100 mg capsule 200 mg PO BID PRN constipation 03/31/25 duloxetine 30 mg capsule,delayed 30 mg PO BID 03/31/25 release meloxicam 15 mg tablet 15 mg PO DAILY 03/31/25 methadone 10 mg tablet 10 mg PO TID 03/31/25 ondansetron 4 mg disintegrating 4 mg PO Q6-8H PRN 03/31/25 tablet pantoprazole 40 mg tablet,delayed 40 mg PO DAILY 03/31/25 release prednisone 5 mg tablet 5 mg PO DIRECTED 03/31/25 roflumilast 500 mcg tablet 500 mcg PO DAILY 03/31/25 sacubitril 49 mg-valsartan 51 mg 1 tab PO BID 03/31/25 tablet (Entresto) theophylline 200 mg mg PO 03/31/25 tablet,extended release,12 hr valacyclovir 500 mg tablet 500 mg PO BID 03/31/25 Previous Rx's ?Medication ?Instructions ?Recorded doxycycline monohydrate 100 mg 100 mg PO DAILY 28 days #28 tabs 03/31/25 tablet prednisone 10 mg tablet 10 mg PO BID 30 days #60 tabs 03/31/25 albuterol sulfate 2.5 mg/3 mL 2.5 mg (3 mL) inhalation Q6H PRN 04/17/25 (0.083 %) solution for nebulization shortness of breath or wheezing 30 days #180 mL arformoterol 15 mcg/2 mL solution 2 ml inhalation Q12H 30 days #120 04/17/25 for nebulization (Brovana) mL budesonide 0.5 mg/2 mL suspension 0.5 mg (2 mL) inhalation BID 30 04/17/25 for nebulization days #120 mL amoxicillin 875 mg-potassium 1 tab PO BID #20 tabs 04/23/25 clavulanate 125 mg tablet ibuprofen 600 mg tablet 600 mg PO Q6H PRN fever or pain 04/23/25 #30 tabs Allergies Allergy/AdvReac Type Severity Reaction Status Date / Time ciprofloxacin (From Cipro) Allergy Severe Redness Verified 04/22/25 23:14 on Face levofloxacin (From Levaquin) Allergy Severe Swelling Verified 04/22/25 23:14 in the Joints hydromorphone (From Dilaudid) AdvReac Intermediate Anxiety Verified 04/22/25 23:14 bactrim AdvReac Severe Nausea Uncoded 04/22/25 23:14 Review of Systems Review of Systems: Yes all other systems are reviewed and are negative PMFSH Past Medical History Medical History ALOK (obstructive sleep apnea) Infection due to human metapneumovirus (hMPV) Human metapneumovirus (hMPV) pneumonia Transient global amnesia Chronic respiratory failure Pleuritic chest pain Pre-op chest exam Chondrocalcinosis Chronic neck and back pain Asthma Asthma-COPD overlap syndrome Asthma FH: bowel obstruction Bronchitis Pulmonary nodules Back pain Dyspnea COPD (chronic obstructive pulmonary disease) Surgical History Hx of colonoscopy History of esophagogastroduodenoscopy (EGD) History of partial colectomy History of hernia repair History of lung biopsy Family History Family History Mother History of lung cancer Social History Social History Household Members: Spouse and Caregiver Household Members Other:: son, daughter, dog, 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 Housing: House Do you presently have visiting nurse or other home services: No (reservation manager now only) Alcohol intake: former Patient Tobacco Use Status: Former Tobacco user Tobacco use type: Cigarette Cigarette Packs Per Day: 1 Cigarettes Per Day: 20.0 Years Smoked: 8 Smoked in Last 30 Days: No Second Hand Smoke Exposure: No Use of substances other than those prescribed or required for medical reasons: No Substance Use Type: Caffiene Advance Directives: No Advance Directives Information Provided: No Do you have a plan to hurt others: No Plan service: No Current occupational status: disabled Physical Exam Vital Signs: Vital Signs: Last Vital Signs Temp 97.8 F 04/23/25 00:07 Pulse 91 04/23/25 00:07 Resp 18 04/23/25 00:07 BP 103/64 04/23/25 00:07 Pulse Ox 96 04/23/25 00:07 O2 Del Method Nasal Cannula 04/23/25 00:07 O2 Flow Rate 3 04/23/25 00:07 Oxygen Flow Rate 3 04/22/25 23:08 BMI result Body Mass Index 22.3 Const: General: cooperative and healthy appearing Orientation/consciousness: oriented to person, oriented to place and oriented to time Neuro: General: oriented to person, oriented to place and oriented to time Extrem: Hand/finger images:  1. Fish hook embedded in soft tissue neurovascular intact Medications Administered Discontinued Medications Generic Name Dose Route Start Last Admin Trade Name Freq PRN Reason Stop Dose Admin Amoxicillin/Clavulanate Potassium 875 mg 04/22/25 23:37 04/22/25 23:54 Amoxicillin/Potassium Clav 875 Mg Tablet PO 04/22/25 23:38 875 mg ONCE ONE Administration Diphtheria/Tetanus/Acell Pertussis 0.5 ml 04/22/25 23:37 04/22/25 23:54 Diphth,Pertus(Acell),Tet Adult 0.5 Ml Syringe IM 04/22/25 23:38 0.5 ml .ONCE ONE Administration Lidocaine HCl 5 ml 04/22/25 23:35 04/22/25 23:54 Lidocaine Hcl 1 % Mpf 2 Ml Vial INFILTRATI 04/22/25 23:36 5 ml ONCE ONE Administration Procedures Foreign Body Removal Time Out Performed: yes Site: right Description of foreign body: fish hook Sedation/Analgesia: none and other (Lidocaine 1% 1 mL instilled locally ) Technique: manual removal Confirmed by:: direct visualization Complications: none Post-procedure exam: awake, alert Neurovascular: normal distal pulse and normal capillary fill Discharge Plan Discharge Clinical Impression: Fish hook injury of finger of right hand Patient Disposition: Home, Self-Care Instructions: Soft Tissue Foreign Body (ED) Additional Instructions: Local care of the wound as advised Take antibiotic to prevent in infection Tylenol Motrin for pain as needed Report to the ER/PCP if signs of infection no increased pain Prescriptions: New ibuprofen 600 mg tablet 600 mg PO Q6H PRN (Reason: fever or pain) Qty: 30 0RF amoxicillin-pot clavulanate 875-125 mg tablet 1 tab PO BID Qty: 20 0RF No Action albuterol sulfate 2.5 mg /3 mL (0.083 %) solution for nebulization 2.5 mg inhalation Q6H PRN (Reason: shortness of breath or wheezing) 30 Days Qty: 180 11RF budesonide 0.5 mg/2 mL suspension for nebulization 0.5 mg inhalation BID 30 Days Qty: 120 11RF arformoterol [Brovana] 15 mcg/2 mL solution for nebulization 2 ml inhalation Q12H 30 Days Qty: 120 0RF [place] [facility] [place] .Route Rx Instructions: As directed prednisone 5 mg tablet 5 mg PO DIRECTED Rx Instructions: see taper instructions cyclobenzaprine 10 mg tablet 10 mg PO BID PRN albuterol sulfate 2.5 mg /3 mL (0.083 %) solution for nebulization inhalation cetirizine 10 mg tablet 10 mg PO DAILY PRN (Reason: sinusitis) theophylline 200 mg tablet extended release 12 hr PO methadone 10 mg tablet 10 mg PO TID meloxicam 15 mg tablet 15 mg PO DAILY valacyclovir 500 mg tablet 500 mg PO BID bisoprolol fumarate 10 mg tablet 10 mg PO DAILY pantoprazole 40 mg tablet,delayed release (DR/EC) 40 mg PO DAILY docusate sodium 100 mg capsule 200 mg PO BID PRN (Reason: constipation) aspirin 81 mg tablet 81 mg PO DAILY albuterol sulfate 90 mcg/actuation HFA aerosol inhaler inhalation ondansetron 4 mg tablet,disintegrating 4 mg PO Q6-8H PRN duloxetine 30 mg capsule,delayed release(DR/EC) 30 mg PO BID cholecalciferol (vitamin D3) [Vitamin D3] 25 mcg (1,000 unit) tablet 25 mcg PO DAILY roflumilast 500 mcg tablet 500 mcg PO DAILY Entresto 49-51 mg tablet 1 tab PO BID prednisone 10 mg tablet 10 mg PO BID 30 Days Qty: 60 1RF doxycycline monohydrate 100 mg tablet 100 mg PO DAILY 28 Days Qty: 28 1RF Interventions: ED Discharge Assessment Last Done: 04/23/25 00:07 Discharge Date/Time: 04/23/25 00:08 Print Language: Pashto
[2025-04-22] MEDS: Lidocaine HCl 1 % MPF 2 ML VIAL 5 ML INFILTRATI (23:54)
[2025-04-22] MEDS: Diphth,Pertus(ACell),Tet Adult 0.5 ML SYRINGE IM (23:54)
[2025-04-23 00:07] VITALS: BP 103/64; PULSE 91; RESP 18; TEMP 36.6; O2SAT 96
== END 2025-04-23 00:08 | disposition home or self-care (01) ==
PROVIDERS: Emergency Provider Internal Medicine; PCP Internal Medicine
DX: S61.242A Puncture wound with foreign body of right middle finger without damage to nail, initial encounter (principal); X58.XXXA Exposure to other specified factors, initial encounter; Y93.89 Activity, other specified; Y92.9 Unspecified place or not applicable; Y99.9 Unspecified external cause status
CPT/HCPCS: 90471; 90715; 99284; J2003

== ENCOUNTER 2025-05-31 09:02 | Outpatient (REF) | payer MEDICARE, MEDICAID, SELFPAY ==
[2025-05-31 10:36] LABS: ABG Refer to POC result
[2025-05-31 10:39] LABS: ABG HCO3 28 mmol/L (22-26); ABG O2 % Saturation 78.0 %
== END 2025-05-31 09:03 | disposition home or self-care (01) ==
LOC: HO.LAB 09:02
PROVIDERS: PCP Internal Medicine; Visit Provider Hospitalist
DX: J96.11 Chronic respiratory failure with hypoxia (principal); G47.33 Obstructive sleep apnea (adult) (pediatric); J43.2 Centrilobular emphysema; R91.8 Other nonspecific abnormal finding of lung field; I42.9 Cardiomyopathy, unspecified; C43.8 Malignant melanoma of overlapping sites of skin; F17.210 Nicotine dependence, cigarettes, uncomplicated; Z99.81 Dependence on supplemental oxygen
CPT/HCPCS: 82803; 99212

== ENCOUNTER 2025-05-31 09:02 | Outpatient (AMB) | payer MEDICARE, MEDICAID, SELFPAY ==
--- NOTE | 2025-05-31 09:03 | MHC.OFFVIS ---
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 Patient states that he had been sick with his respiratory issues for the last 10 years. He was initially diagnosed with pneumonia. He has had bronchoscopies and also apparently a biopsy in the past. I cannot find the results at [facility]. He has also gone to [place] for further evaluation. He has been on oxygen for his respiratory failure. Currently using inogen. He has had multiple hospitalizations usually add [facility]. He also goes to [facility]. He has had multiple CT scans done for his pulmonary nodules. His last CT scan was done at [facility]. He has been on nebulized therapy as the inhalers have not been effective for him. He recently finished a prednisone taper. He states that his breathing has been a little bit more labored. Moderate severity. The weather has not helped either. He states that he quit smoking many years ago. 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 We did review a CT scan of the chest from 2015 from [facility] demonstrating areas of attenuation, ground-glass opacities along with moderate emphysema. He was asking about the xypher valves and see if he was a candidate for them. 12/23/2022 The patient is here for a hospital follow up visit. He was admitted to [facility] with acute on chronic hypoxic and hypercarbic respiratory failure. He was noted to have CM with acute CHF, EF 15%. Cardiac meds adjusted. PLaced on diuresis. Required BIPAP, although has a hard time tolerating the BIPAP. We did talk about the improtance of non invasive ventilator if he has any evicence of hypercarbia. He was taken off the prednisone and he has been doing ok and he was also taken off the theophylline. HE was placed on digoxin and Entresto, but did not tolerate the entrsto and was changed to an PATRICIA inhibitor which he is tolerating better. He was also treated got a GI infection. We are requesting the discharge summary at this time. 01/08/2023 the patient is here for pulmonary follow-up visit. He continues to have increased work of breathing. He has a maximal respiratory therapy. Had to come off the theophylline because of his other comorbidities. Is based on the very severe COPD and chronic respiratory failure along with his recent admission with hypercarbic respiratory failure to the hospital will start the patient on noninvasive ventilator. The noninvasive ventilator will help him with improving his gas exchange, improved his prognosis and decrease hospitalizations. 03/17/2023 the patient is here for pulmonary follow-up visit. The patient is feeling a lot better. He is working closely with his cardiac status. He is improving and therefore his respiratory status is improving as well. He feels a lot stronger. He is going to have a repeat echocardiogram and may indeed need a defibrillator if his EF continues to be low. In the meantime the patient did get a noninvasive ventilator. Unfortunately tried multiple masks and cannot sleep with it he tried using it during the daytime he did not tolerated. At this point the patient does not want her continue using it. I did recommend he call the [facility] in order for them to pick it up since he is not using it. We will reassess in the future depending on his CO2 if it starts going up at that time if that is the case we will look into restarting noninvasive therapy. Regards pulmonary nodules he is due for CT scan in July. In addition to all this he is trying to wean off the opiates specially because he has had multiple complications because of the opiates including constipation. Will go ahead and refer him to the [facility] in order for him to look for alternative therapies in view of his severe chronic back and neck pain. This will help his respiratory status as well. 08/11/2023 the patient is here for pulmonary follow-up visit. He was recently seen for a COPD exacerbation. He was evaluated back the end of July he was placed on Vantin and also prednisone he did not take prednisone. The is still coughing although the cough is better less productive is still not gain. Moderate severity. The patient did have a chest x-ray without any acute disease at that time. He continues with respiratory therapy. His cardiac status is stable. He has a hard time expectorating. He does have a flutter valve. I did encourage him for him to use it. The patient will go ahead and start Bactrim. If he still having a productive cough I did provide him with sputum cup in order for him to provide. 11/13/2023 the patient is here for a pulmonary follow-up visit. He is finally feeling better. Overall in a much better health state. He has been continue to use his cardioprotective medications and seems to be feeling better from the standpoint. He did recently have an echocardiogram he does not know the results. I am hopeful that his EF has gotten better. In addition to that he has no longer taking prednisone or antibiotics. He is regimen is back to his baseline. His breathing is well. He is using his oxygen with good effect. He continues his IVIG infusions every 4 weeks. The patient does have severe COPD based on his PFTs that he had back in July 2022. Now he has in a good place to start pulmonary rehabilitation. Therefore since it is close to [facility] will send a referral there. He can start rehab and close monitoring specially with underlying cardiac and pulmonary disease. After that he probably can do it on his own. 03/23/2024 the patient is here for a pulmonary follow-up visit. Overall the patient is doing a lot better. He has been stronger from the heart standpoint which is reassuring. He received respiratory medicines are also helping. He has been able to be off the oxygen which those were reassuring. Has multiple surgeries however that are pending. He is having hand surgery and also needs dental surgery and back surgery. Will go ahead and repeat his pulmonary function studies to assess his capacity. His last PFTs very significant for a very severe obstruction. Therefore he ended needs to understand that he is high risk for perioperative pulmonary complications. Therefore all the non invasive alternative options need to be looked into to see if surgery and anesthesia can be avoided altogether. Is surgery seeing only option then the patient is indeed medically optimized to undergo surgery. Will go ahead and repeat his PFTs. The patient is also having some slight discomfort right below the ribcage on the left. Pleuritic in nature. Likely musculoskeletal. I will have him get an x-ray. Also reproducible therefore could be musculoskeletal. The patient does not have any rash. He did get vaccinated for shingles. He will have an x-ray and if he has not getting better in the next several weeks he can always call so we can readdress it. 07/07/2024 the patient is here for a pulmonary follow-up visit. Overall he is doing well. He is staying active. His respiratory status are pretty much baseline. He is using the oxygen with activity with good effect. The patient also has been using all his nebulized therapy. He did require antibiotics several months ago. He did recover fully which is reassuring. He is starting to develop a respiratory illness at this time. Will make sure that he has proper medications available to start therapy if he worsens. He tends to worsen quickly. In the meantime he needs to undergo pulmonary function studies. We had had to cancel him because of lack of availability. But now which should be able to schedule them at this time. Therefore he will continue with current respiratory therapy will follow-up in 3 months after his PFTs. If he develops any worsening issues prior to that he will call for an earlier assessment. 08/24/2024 the patient is here for a pulmonary follow-up visit. Since we last spoke he was diagnosed with pneumonia. He had a CT scan a [facility]. Demonstrated basilar consolidations. In addition to that x-rays demonstrating the same. Left more than right. The patient did have a repeat chest x-ray here [place] about a week ago. I did review. Has not been officially read but I can not appreciate any airspace disease. The appears to be better this time. This is all reassuring. He did complete the antibiotics and he is completing course of prednisone. He did recently start the theophylline. We start him on low-dose. He is going to monitor closely for any cardiac adverse effects especially with his cardiac history. But at this point the patient does have advanced pulmonary disease will trying to provide him with optimize care. If however he can not tolerate theophylline he can stop it. Other options include other alternative respiratory medications that have become available. We also talked about Dupixent. Will go ahead and recheck his eosinophils to see if he is a candidate for that. in addition to that we did talk about lung volume reduction intervention. May be a good candidate for this. I will have him look into it to learn about it a little bit more. He continues to exercise regularly. will also have him get blood work including a blood gas. If his CO2 is elevated will going to talk about a noninvasive ventilator that would also help him with his advanced respiratory failure. The patient will follow-up in a couple months. He is scheduled to have PFTs soon. 10/06/2024 the patient has a telehealth visit today. He is on feeling well so therefore decided to stay home. The patient recently went to a and afterwards he was very tired. He denies any sick contacts at this time. Although he will monitor closely for any worsening symptoms. He continues to have frequent exacerbations and shortness of breath. He did undergo pulmonary function studies which we did review. He still has a very severe obstruction although slightly better than before although he seems to have worsening diffusing capacity. Likely this is resulting in a decreased respiratory reserve in worsening symptoms. The patient has been medically optimized. Will go ahead and see if he is a candidate for Dupixent. Therefore her come in and will can check his eosinophil count. In addition to that will go ahead and check a venous gas. The patient does have worsening respiratory failure so therefore may be a good candidate for noninvasive ventilator to help him with the work of breathing. Potentially decrease exacerbations and decrease hospitalizations. Therefore he will come in for the blood gas when he comes in for the blood work. In addition to that he may be a good candidate for Ohtuvayre this will provide additional bronchodilation of the airways and his limited state. This may provide some relief. The patient will return couple months and will at that point talk about lung volume reduction interventions as well as another option moving forward. 01/03/2025 the patient is here for a pulmonary follow-up visit. He has had a hard time breathing for the last several weeks. He has been taking 10 mg of prednisone that appears to be helping him. He has multiple exacerbations a year. For the last year he has had about 5 already where he has needed prednisone. Be a great candidate for Dupixent at this time. He has had elevated eosinophils up to 300. However, since he has been on prednisone is hard to measure. I will go ahead and see if we can get Dupixent cover for him in order to decrease his exacerbation improve his respiratory status in addition to that we did request Ohtuvayre nebulizer therapy but has not been approved as of yet. He continues right now with the prednisone for now. The patient also will be following up with Cardiology regarding the need for defibrillator. Once the patient is stable from a cardiac status the patient is interested in pursuing evaluation for lung transplantation. Not clear if he will need a heart lung transplantation if he qualifies. The patient also was diagnosed melanoma. That was biopsy-proven. Now he is going to undergo surgery and see the extent of it as well. If there is any evidence of any significant extension then we should try to facilitate a CT scan at an earlier time. Otherwise we can wait till the summer to follow-up after his last CT scan back in 06/07/2024. He did have a chest x-ray which I personally reviewed and demonstrates some interstitial changes, slightly more on the left hemithorax. 03/31/2025 the patient is here for a hospital follow-up visit. The patient was exposed to sick contacts in the home and started developing worsening respiratory complaints abdominal pain and tachycardia. He came into the [facility] [place] ED. there he did swab positive for human metapneumovirus. During the hospital stay he started developing worsening tachycardia significant elevations in the blood pressure and also persistent abdominal pain. He was transferred to the ICU for a decompromise state with hypertensive urgency. He did develop a demand myocardial infarction based on the blood work. He did have an echocardiogram demonstrating an EF of 10-15%. Some akinetic wall abnormalities. 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 His cardiac medications were adjusted by Cardiology here. During the hospital stay the patient also had blood work done demonstrating significant hypercarbia consistent with acute on chronic respiratory failure. We did review his PFTs demonstrating a significantly decreased FEV1 and FVC consistent with very severe COPD. With his worsening work of breathing due to his COPD poor gas exchange he does carry a poor prognosis and high risk for rehospitalization. Therefore the patient will be a great candidate for noninvasive ventilator to improve his gas exchange improved his prognosis and decrease hospitalizations. Will work with a local [employer] company in order to get him started on a noninvasive ventilator such as the astral. The patient is agreeable at this time. He will continue to use his oxygen as prescribed. He will continue his current medicines. He is still weaning off the prednisone. I will send him additional prednisone. Will also keep him on some doxycycline for his immunodeficiency for prophylactic therapy. The patient follow-up in 6-8 weeks. If he has any worsening issues prior to that he will call for an earlier assessment. 05/31/2025 the patient is here for pulmonary follow-up visit. The patient continues to be dyspneic. Also complains of chest congestion and cough. Moderate to severe. He is following closely also with Cardiology. The patient start the noninvasive ventilator. Appears to be very helpful. He has been using it in his taken away some of the work of breathing. Although his insurance company requiring additional blood work. He has very severe COPD and increased work of breathing and a noninvasive ventilator will be very effective for him to help him with his work of breathing. He continues use her respiratory therapy. He has not received the Ohtuvayre as of yet. Still waiting for that. The meantime he is taking prednisone. Will go ahead and taper him from 20 mg to 10 mg every other day. [facility] Medical History ALOK (obstructive sleep apnea) Infection due to human metapneumovirus (hMPV) Human metapneumovirus (hMPV) pneumonia Transient global amnesia Chronic respiratory failure Pleuritic chest pain Pre-op chest exam Chondrocalcinosis Chronic neck and back pain Asthma Asthma-COPD overlap syndrome Asthma FH: bowel obstruction Bronchitis Pulmonary nodules Back pain Dyspnea COPD (chronic obstructive pulmonary disease) Surgical History Hx of colonoscopy History of esophagogastroduodenoscopy (EGD) History of partial colectomy History of hernia repair History of lung biopsy Family History Mother History of lung cancer Social History Household Members: Spouse and Caregiver Household Members Other:: son, daughter, 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, 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 Housing: House Do you presently have visiting nurse or other home services: No (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 now only) Alcohol intake: former Patient Tobacco Use Status: Former Tobacco user Tobacco use type: Cigarette Cigarette Packs Per Day: 1 Cigarettes Per Day: 20.0 Years Smoked: 8 Second Hand Smoke Exposure: No Substance Use Type: Caffiene service: No Current occupational status: disabled Review of Systems Const Reports fatigue, Denies fever(s), Denies headache(s), Denies night sweats and Denies poor appetite ENT Reports Normal hearing present, Denies change in voice, Denies headache(s), Denies lip swelling, Denies mouth pain, Reports nasal congestion, Reports nasal discharge, Reports neck pain and Denies tongue swelling Card Denies chest pain, Reports dyspnea and Reports dyspnea on exertion Resp Denies change in phlegm color, Denies chest congestion, Reports cough, Denies hemoptysis, Denies excessive phlegm production, Denies pain on inspiration, Reports dyspnea, Reports dyspnea on exertion and Reports wheezing GI Denies abdominal pain Musc Denies no additional complaints, Reports back pain and Reports neck pain Skin/Breast Reports lesions Neuro Reports Normal hearing present, Denies Neuro-related abnormal movements and Denies headache(s) Psych Denies no additional complaints Endo Reports fatigue Marcel/Lymph Denies easy bleeding and Denies lymphadenopathy Aller/Immun Denies lip swelling, Denies tongue swelling and Reports wheezing Physical Exam Vital Signs: Last Vital Signs Pulse 81 05/31/25 09:04 BP 80/62 L 05/31/25 09:04 Pulse Ox 98 05/31/25 09:04 Oxygen Delivery Method Room Air 05/31/25 09:04 BMI result Body Mass Index 20.4 Last Vital Signs Temp 98.1 F 03/19/25 20:05 Pulse 118 H 03/19/25 20:05 Resp 25 H 03/19/25 20:05 BP 125/83 03/19/25 20:05 Pulse Ox 94 03/19/25 20:05 O2 Del Method Nasal Cannula 03/19/25 20:05 O2 Flow Rate 3 03/19/25 20:05 BMI result Body Mass Index 23.0 Const Orientation/consciousness: patient oriented x3 Neck Neck: Yes normal visual inspection Chest Chest palpation & inspection: normal inspection of the chest Resp Effort & Inspection: normal respiratory effort and prolonged expiratory phase Auscultation: wheezes and diminished lung sounds Cardio Heart sounds: S1 normal heart sound present and S2 normal heart sound present GI Palpation (GI): Soft to palpation Skin General skin exam: no rashes or lesions noted Neuro General: patient oriented x3 Cranial nerves: Yes Normal hearing present Extrem Right upper extremity: no cyanosis Assessment & Plan Assessment & Plan (1) Chronic respiratory failure: Code(s): J96.10 - Chronic respiratory failure, unspecified whether with hypoxia or hypercapnia Category: Medical Qualifiers: Respiratory failure complication: hypoxia Qualified Code(s): J96.11 - Chronic respiratory failure with hypoxia (2) ALOK (obstructive sleep apnea): Code(s): G47.33 - Obstructive sleep apnea (adult) (pediatric) Category: Medical (3) COPD (chronic obstructive pulmonary disease): Comment: very severe Code(s): J44.9 - Chronic obstructive pulmonary disease, unspecified Category: Medical Qualifiers: COPD type: emphysema Emphysema type: centrilobular Qualified Code(s): J43.2 - Centrilobular emphysema (4) Dyspnea: Code(s): R06.00 - Dyspnea, unspecified Category: Medical Qualifiers: Dyspnea type: dyspnea on exertion Qualified Code(s): R06.00 - Dyspnea, unspecified (5) Pulmonary nodules: Code(s): R91.8 - Other nonspecific abnormal finding of lung field Category: Medical (6) Cardiomyopathy: Code(s): I42.9 - Cardiomyopathy, unspecified Category: Medical Qualifiers: Cardiomyopathy type: unspecified Qualified Code(s): I42.9 - Cardiomyopathy, unspecified (7) Asthma-COPD overlap syndrome: Code(s): J44.9 - Chronic obstructive pulmonary disease, unspecified Category: Medical (8) Melanoma: Code(s): C43.9 - Malignant melanoma of skin, unspecified Category: Medical Qualifiers: Melanoma location: overlapping sites Qualified Code(s): C43.8 - Malignant melanoma of overlapping sites of skin Plan diuresis as tolerated Continue respiratory therapy: Daliresp, Brovana, Yulperi start Ohtuvayre nebs start Augmentin ? Dupixent, with frequest exercerbations RAFAELA as needed continue oxygen 2 L with activity. He does use a POC for portability outside of the home ([employer]) CPT with Acapella valve. Theophylline low dose continue prednisone 10mg daily for now continue non invasive ventilator, very severe COPD with increase work of breathing consider referral to [facility] transplant center, for now needs to continue addressing cardiac issues and new skin cancer. Bloodwork Sputum cx follow-up in 2 months Orders: Orders Basic Metabolic Panel Today I42.9 - Cardiomyopathy, unspecified, J44.9 - Chronic obstructive pulmonary disease, unspecified, J96.11 - Chronic respiratory failure with hypoxia ABG Today I42.9 - Cardiomyopathy, unspecified, J44.9 - Chronic obstructive pulmonary disease, unspecified, J96.11 - Chronic respiratory failure with hypoxia Immunoglobulins,IgG IgA IgM Today I42.9 - Cardiomyopathy, unspecified, J44.9 - Chronic obstructive pulmonary disease, unspecified, J96.11 - Chronic respiratory failure with hypoxia Alpha 1 Anti-trypsin Today I42.9 - Cardiomyopathy, unspecified, J44.9 - Chronic obstructive pulmonary disease, unspecified, J96.11 - Chronic respiratory failure with hypoxia Sputum Cult + Gram stain Today R91.1 - Solitary pulmonary nodule Complete Blood Count Auto Diff Today I42.9 - Cardiomyopathy, unspecified, J44.9 - Chronic obstructive pulmonary disease, unspecified, J96.11 - Chronic respiratory failure with hypoxia B Type Natriuretic Peptide Today I42.9 - Cardiomyopathy, unspecified, J44.9 - Chronic obstructive pulmonary disease, unspecified, J96.11 - Chronic respiratory failure with hypoxia Theophylline Today I42.9 - Cardiomyopathy, unspecified, J44.9 - Chronic obstructive pulmonary disease, unspecified, J96.11 - Chronic respiratory failure with hypoxia Immunoglobulin E Today I42.9 - Cardiomyopathy, unspecified, J44.9 - Chronic obstructive pulmonary disease, unspecified, J96.11 - Chronic respiratory failure with hypoxia Coding Level of Care Code Est Pt Level 5 (15009) Complex EM visit Add On G2211 Diagnoses Chronic respiratory failure with hypoxia J96.11 Respiratory failure complication: hypoxia ALOK (obstructive sleep apnea) G47.33 Centrilobular emphysema J43.2 COPD type: emphysema Emphysema type: centrilobular Dyspnea on exertion R06.00 Dyspnea type: dyspnea on exertion Pulmonary nodules R91.8 Cardiomyopathy, unspecified type I42.9 Cardiomyopathy type: unspecified Asthma-COPD overlap syndrome J44.9 Malignant melanoma of overlapping sites C43.8 Melanoma location: overlapping sites Time Spent (min) 40
[2025-05-31 09:04] VITALS: BP 80/62; PULSE 81; O2SAT 98; BMI 20.4
== END 2025-05-31 09:45 | disposition home or self-care (01) ==
LOC: HO.HPS 09:02
PROVIDERS: PCP Internal Medicine; Visit Provider Hospitalist
DX: J96.11 Chronic respiratory failure with hypoxia (principal); G47.33 Obstructive sleep apnea (adult) (pediatric); J43.2 Centrilobular emphysema; R06.00 Dyspnea, unspecified; R91.8 Other nonspecific abnormal finding of lung field; I42.9 Cardiomyopathy, unspecified; J44.9 Chronic obstructive pulmonary disease, unspecified; C43.8 Malignant melanoma of overlapping sites of skin
CPT/HCPCS: 99215; G2211

== ENCOUNTER 2025-06-01 11:53 | Outpatient (REF) | payer MEDICARE, MEDICAID, SELFPAY | END 2025-06-01 11:54 | disposition home or self-care (01) | LOC: HO.LNP 11:53 | PROVIDERS: Visit Provider Hospitalist | DX: R91.1 Solitary pulmonary nodule (principal) | CPT/HCPCS: 87070; 87205 ==

== ENCOUNTER 2025-06-07 10:09 | Outpatient (REF) | payer MEDICARE, MEDICAID, SELFPAY ==
[2025-06-07 10:33] LABS: MANUAL DIFF FLAG NO
[2025-06-07 11:44] LABS: Hematocrit 46.5 % (42.0-52.0); Hemoglobin 15.3 g/dl (14.0-18.0); Imm Gran Abs Auto 0.01 X10*3/uL (0.00-0.03); Imm Gran Pct Auto 0.2 % (0.0-0.4); Lymphocytes Absolute Auto 2.1 X10*3/uL (1.2-4.9); Mean Corpuscular HGB Conc 32.9 g/dl (31.0-36.0); Mean Corpuscular Hemoglobin 31.4 pg (27.0-33.0); Mean Corpuscular Volume 95.5 fL (80.0-98.0); NRBC Abs Auto 0.000 X10*3/uL (0.0-0.012); NRBC Pct Auto 0.0 /100WBC (0.0-0.2); Platelet Count 431 X10*3/uL (160-400); Red Blood Count 4.87 X10*6/uL (4.60-5.80); White Blood Count 5.9 X10*3/uL (4.8-10.8)
[2025-06-07 12:20] LABS: Anion Gap 14 (12-20); Blood Urea Nitrogen 14 mg/dL (9-16); Calcium 9.3 mg/dL (8.4-10.2); Carbon Dioxide 26 mmol/L (22-29); Chloride 105 mmol/L (96-108); Estimated Glomerular Filt Rate 59; Potassium 4.1 mmol/L (3.3-5.1); Sodium 141 mmol/L (135-145)
[2025-06-07 12:27] LABS: B Type Natriuretic Peptide 34 pg/mL (<100)
[2025-06-08 07:50] LABS: Theophylline 10.4
[2025-06-08 13:33] LABS: Immunoglobulin G Subclass 1 964 mg/dL (382-929); Immunoglobulin G Subclass 2 589 mg/dL (241-700); Immunoglobulin G Subclass 3 65 mg/dL (22-178); Immunoglobulin G Subclass 4 40.9 mg/dL (4-86); Immunoglobulin G Total 1781 mg/dL (600-1540)
== END 2025-06-07 10:10 | disposition home or self-care (01) ==
LOC: HO.LAB 10:09
PROVIDERS: PCP Internal Medicine; Visit Provider Hospitalist
DX: J43.2 Centrilobular emphysema (principal); J96.11 Chronic respiratory failure with hypoxia; I42.9 Cardiomyopathy, unspecified; J44.9 Chronic obstructive pulmonary disease, unspecified
CPT/HCPCS: 36415; 80048; 80198; 82103; 82784; 82785; 83880; 85025; 85652

== ENCOUNTER 2025-08-22 09:53 | Outpatient (AMB) | payer MEDICARE, MEDICAID, SELFPAY ==
--- NOTE | 2025-08-22 09:58 | MHC.OFFVIS ---
Vital Signs 08/22/25 10:03 Height 5 ft 4 in Weight 113 lb BMI 19.4 BP 116/63 Blood Pressure Location Lt brachial Position Sitting Pulse 68 Intake Visit Reasons: lipoma on back Intake Note: Patient is seen in office for back lipoma. Pt c/o: has a new lipoma in the back for about a year, and another below the left nipple for about 6 months, have increase in size, denies discharge, redness, infection L.OV:01/10/22 Elevator Dispatcher Required: No Accompanied by: Self / Same As Patient Allergies ciprofloxacin (From Cipro) Allergy (Severe, Verified 08/22/25 10:05) Redness on Face levofloxacin (From Levaquin) Allergy (Severe, Verified 08/22/25 10:05) Swelling in the Joints hydromorphone (From Dilaudid) Adverse Reaction (Intermediate, Verified 08/22/25 10:05) Anxiety bactrim Adverse Reaction (Severe, Uncoded 08/22/25 10:05) Nausea HPI Comments Details: 65-year-old male patient presenting with 2 soft tissue masses, 1 located in the upper midline back in the 2nd located below the left nipple in the anterior chest. Both have gradually increased in size and are now causing discomfort. He has other soft tissue masses including 1 in the lower right flank, and a 3rd in the left lower back. These are not causing any discomfort however. He is requesting excision of the 2 symptomatic soft tissue masses. He denies any redness in the skin or discharge. He denies fever or chills. He feels that the may be lipomas. [facility] Medical History ALOK (obstructive sleep apnea) Infection due to human metapneumovirus (hMPV) Human metapneumovirus (hMPV) pneumonia Transient global amnesia Chronic respiratory failure Pleuritic chest pain Pre-op chest exam Chondrocalcinosis Chronic neck and back pain Asthma Asthma-COPD overlap syndrome Asthma FH: bowel obstruction Bronchitis Pulmonary nodules Back pain Dyspnea COPD (chronic obstructive pulmonary disease) Surgical History Hx of colonoscopy History of esophagogastroduodenoscopy (EGD) History of partial colectomy History of hernia repair History of lung biopsy Family History Mother History of lung cancer Social History Household Members: Spouse and Caregiver Household Members Other:: son, daughter, dog, FRAME BANDER Housing: House Do you presently have visiting nurse or other home services: No (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) Alcohol intake: former Patient Tobacco Use Status: Former Tobacco user Tobacco use type: Cigarette Cigarette Packs Per Day: 1 Cigarettes Per Day: 20.0 Years Smoked: 8 Second Hand Smoke Exposure: No Substance Use Type: Caffiene service: No Current occupational status: disabled Review of Systems Const All systems reviewed & are unremarkable except as noted in HPI and below Physical Exam Vital Signs: Last Vital Signs Pulse 68 08/22/25 10:03 BP 116/63 08/22/25 10:03 BMI result Body Mass Index 19.4 Const General: no acute distress Nutritional Appearance: well nourished Orientation/consciousness: patient oriented x3 Limitations: no limitations Chest Other: Palpable soft tissue mass measuring approximately 2 cm in diameter located below the left nipple as noted below. No overlying skin changes are appreciated. Chest/axillae images:  1. 2 cm soft tissue mass below left nipple. Resp Effort & Inspection: normal respiratory effort, no audible wheezes, no cough and no respiratory distress GI Other: Soft, nondistended, Back/Spine/Pelvis Other: Soft tissue mass in the upper midline back measuring approximately 3 cm in diameter. No overlying skin changes are appreciated. Lesion is tender to palpation. Other soft tissue masses as noted below. Back/spine/pelvis image:  1. 3 cm soft tissue mass 2. 4 cm lipoma right flank 3. 2 cm soft tissue mass/lipoma left lower back Neuro General: patient oriented x3 Extrem General: Yes normal to inspection Assessment & Plan Assessment & Plan (1) Lipoma: Code(s): D17.9 - Benign lipomatous neoplasm, unspecified Category: Medical Plan [age] year old male patient presenting with multiple soft tissue masses as noted above. Two in particular are symptomatic including the upper midback and left chest wall which he has requested excision. I reviewed the procedure, risks and alternatives and he consents to the surgery. This will be performed will be performed in the office under local anesthesia. Coding Level of Care Code Est Pt Level 4 (12342) Diagnoses Lipoma D17.9
[2025-08-22 10:03] VITALS: BP 116/63; PULSE 68; BMI 19.4
--- OUTSIDE RECORDS SUMMARY | 2025-08-22 11:23 | XMS_ITS | Data Portability ---
Author Organization [place] - [facility], Allergy Address [address] [address] Care Team Providers Care Percussion Instrument Tuner Name Role Phone TRINIDAD WYMAN Primary Care Provider KAMITRINIDAD Ochoa Primary Care Provider [phone] Assessment No assessment recorded. Plan of Treatment Reminders Order Date Submit Date Provider Last Modified By Organization Details Last Modified Time Details Appointments Establish ed 30 2024 11:00A M KATIE Cano MD Not available Not available Not available Lab None recorded. Referral speech language pathologi st referral 2024 025 [email or web address] [facility], [address], [address], 06/27/2025 12:10:38 Procedures None recorded. Surgeries None recorded. Imaging CT, neck, soft tissue, w/ contrast - exclude occult pathology 2024 025 [email or web address] [facility], [address] [place], [address], 06/13/2025 16:12:50 Medication Orders omeprazol e 20 mg tablet,de layed release 2024 025 [facility], [address] [place], [address], 02/10/2025 11:57:04 Patient TargetsNo targets recorded. Patient InstructionsNo instructions recorded. Reason for Referral Speech Language Pathologist Referral for Chronic hoarseness Referring Physician: Katie Ramirez, Otolaryngology, Encounter Date: 06/07/2025 Results Created Date Observation Date Name Description Value Unit Range Abnormal Flag Note LastModifiedBy Organization Detail LastModifiedTime 06/16/2006/16/2025 CT, neck, soft tissu e, w/ contr ast No observ ation record ed. eda [address], [address], 06/21/2025 14:06:27 Result Notes None recorded. Problems Name Problem SNOMED Code Status Onset Date Resolution Date Notes Provider Name and Address Organization Details Recorded Time Deviated nasal septum 384608242 Active 2018 Deviated nasal septum; Note: Date Diagnosed : 03/24/2019 12:49 PM (J34.2) Not Available [facility] 4 02:59:51 Bleeding from nose 774992295 Active 2018 Epistaxis ; Note: Date Diagnosed : 03/24/2019 10:20 AM (R04.0) Not Available [facility] 4 02:59:52 Dysphonia 82750035 Active 2018 Hoarsenes s; Note: Date Diagnosed : 03/24/2019 10:20 AM (R49.0) Not Available [facility] 4 02:59:49 Impacted cerumen of bilateral ears [id number] 30971 Active 2019 Impacted cerumen, bilateral ; Note: Date Diagnosed : 11/04/2019 2:58 PM (H61.23) Not Available [facility] 4 02:59:50 Abnormal auditory perceptio n 97700161 Active 2019 Other abnormal auditory perceptio ns, bilateral ; Note: Date Diagnosed : 11/07/2019 8:19 AM (H93.293) Not Available [facility] 4 02:59:52 Gastroeso phageal reflux disease without esophagit is 458801184 Active 2024 KATIE RAMIREZ MD [address] [place] [address], [place], [address] , [place] - [facility] 5 11:52:25 Chronic sore throat 299004431 Active 2024 KATIE RAMIREZ MD [address] [place] [address],[place] [address], [address] , [facility] - [facility] 5 11:52:30 Chronic hoarsenes s 93257114305 05 Active 2024 KATIE RAMIREZ MD [address] [place] [address], [facility] [place], [address] , [facility] - [facility] 5 11:52:38 Problem Notes None recorded. Procedures Surgical History Date Name Laterality Status Provider Name and Address Organization Details Recorded Time 02/10/2025 FFL_RE completed KATIE RAMIREZ MD [address] [facility],[place] [address], [place], [address], [facility] - [facility] 02/10/2025 11:58:26 Imaging Results None recorded. Procedure Notes None recorded. Medical Equipment None Reported. Allergies Allergen ID Allergen Name Allergen Category Reaction Reaction Severity Criticality Documentation Date Start Date Code Code System Note Provider Name and Address Organization Details Recorded Time 632934 Bactrim medicatio n Not available Not available Not available 02/10/2025 15670 9 RxNorm Valorie delgadillo [facility] 11:37:07 067938 Dilaudid medicatio n Not available Not available Not available 02/10/2025 44858 3 RxNorm Valorie delgadillo [facility] 11:37:13 611366 Levaquin medicatio n Not available Not available Not available 02/10/2025 08939 2 RxNorm Valorie delgadillo [facility] 11:37:20 Medications Name Sig Start Date Stop Date Status Note LastModified by Organization Details LastModified Time cyclobenz aprine 10 mg tablet TAKE 1/2 OR 1 TABLET BY MOUTH 2 TIMES A DAY, NEEDED FOR MUSCLE PAIN OR SPASM active Not Available Not Available No t Available nystatin 100,000 unit/mL oral suspensio n SWISH AND SWALLOW 5 ML BY MOUTH 4 TIMES A DAY FOR 7 DAYS active Not Available Not Available No t Available prednison e 10 mg tablet TAKE 1 TABLET BY MOUTH TWICE A DAY FOR 30 DAYS active Not Available Not Available No t Available doxycycli ne hyclate 100 mg capsule TAKE 1 CAPSULE BY MOUTH TWICE A DAY FOR 5 DAYS 02/10 completed Not Available Not Available Not Available albuterol sulfate 2.5 mg/3 mL (0.083 %) solution for nebulizat ion USE 1AMP 2.5 MG (3 ML) INHALED EVERY 4 HOURS NEEDED FOR FOR WHEEZING active Not Available Not Available No t Available cetirizin e 10 mg tablet TAKE 1 TABLET BY MOUTH DAILY NEEDED FOR SINUS SYMPTOMS active Not Available Not Available No t Available cefpodoxi me 200 mg tablet TAKE 1 TABLET BY MOUTH EVERY 12 HOURS FOR 7 DAYS 02/10 completed Not Available Not Available Not Available azithromy raymundo 250 mg tablet TAKE 2 TABLETS BY MOUTH TODAY, THEN TAKE 1 TABLET DAILY FOR 4 DAYS DIRECTED active Not Available Not Available No t Available theophyll ine ER 200 mg tablet,ex tended release,1 2 hr TAKE 1 TAB EVERY 12HRS active Not Available Not Available No t Available methadone 10 mg tablet TAKE 1 TABLET BY MOUTH 3 TIMES A DAY NEEDED FOR PAIN active Not Available Not Available No t Available meloxicam 15 mg tablet TAKE 1 TABLET BY MOUTH DAILY, TAKE WITH FOOD NEEDED FOR BACK PAIN active Not Available Not Available No t Available prednison e 20 mg tablet TAKE 2 TABLETS BY MOUTH EVERY DAY FOR 5 DAYS active Not Available Not Available No t Available metoprolo l succinate ER 100 mg tablet,ex tended release 24 hr TAKE 1 TABLET BY MOUTH EVERY DAY active Not Available Not Available No t Available prednison e 5 mg tablet TAKE 2 TABS BY MOUTH TWICE A DAY 03/28-03/19 1, THEN 2 TABS DAILY 03/30-03/19 5, THEN 1 TAB DAILY 04/03-03/19 9 active Not Available Not Available No t Available valacyclo vir 500 mg tablet TAKE 1 TABLET BY MOUTH TWICE A DAY NEEDED FOR SKIN SYMPTOMS active Not Available Not Available No t Available sulfameth oxazole 800 mg-trimet hoprim 160 mg tablet TAKE 1 TABLET BY MOUTH TWICE A DAY FOR 7 DAYS 02/10 completed Not Available Not Available Not Available aspirin 81 mg tablet,de layed release TAKE 1 TABLET BY MOUTH EVERY DAY active Not Available Not Available No t Available doxycycli ne monohydra te 100 mg tablet TAKE 1 TABLET BY MOUTH TWICE A DAY active Not Available Not Available No t Available bisoprolo l fumarate 10 mg tablet TAKE 1 TABLET BY MOUTH EVERY DAY active Not Available Not Available No t Available pantopraz ole 40 mg tablet,de layed release TAKE 1 TABLET BY MOUTH EVERY DAY NEEDED FOR STOMACH PAIN active Not Available Not Available No t Available lidocaine 5 % topical patch APPLY 1 PATCH DAILY TO MOST PAINFUL AREA (12 HOURS ON THEN 12 HOURS OFF) active Not Available Not Available No t Available docusate sodium 100 mg capsule TAKE 2 CAPSULE BY MOUTH 2 TIMES A DAY, NEEDED FOR CONSTIPA TION FOR active Not Available Not Available No t Available budesonid e 0.5 mg/2 mL suspensio n for nebulizat ion INHALE 0.5 MG (2 ML) BY NEBULIZE R 2 TIMES A DAY FOR 30 DAYS active Not Available Not Available No t Available hydrocort isone 2.5 % topical cream 1 APPLICAT ION TOPICALL Y 3 TIMES A DAY, NEEDED FOR SKIN RASH active Not Available Not Available No t Available lorazepam 1 mg tablet active Medicati on ID: [id number] D uration Value: 28 Brand Name: lorazepa m Send Method: E-Prescr ibed Sub s Allowed: subs OK Medic ationGen ericName : lorazepa m Not Available Not Available Not Available ibuprofen 600 mg tablet TAKE 1 TABLET ORALLY EVERY 6 HOURS NEEDED FOR FEVER OR PAIN active Not Available Not Available No t Available albuterol sulfate HFA 90 mcg/actua tion aerosol inhaler INHALE 2 PUFFS EVERY 4 HOURS NEEDED FOR FOR WHEEZING active Not Available Not Available No t Available colchicin e 0.6 mg tablet TAKE 1 TABLET BY MOUTH EVERY DAY 02/10 completed Not Available Not Available Not Available fluocinon shea 0.05 % topical cream APPLY TO AFFECTED AREA TWICE A DAY NEEDED FOR SKIN RASH active Not Available Not Available No t Available lisinopri l 40 mg tablet TAKE 1 TABLET BY MOUTH EVERY DAY 02/10 completed Not Available Not Available Not Available ondansetr on 4 mg disintegr ating tablet TAKE 1 TABLET BY MOUTH EVERY 6 HOURS NEEDED FOR NAUSEA AND VOMITING active Not Available Not Available No t Available cefdinir 300 mg capsule TAKE 1 CAPSULE BY MOUTH EVERY 12 HOURS FOR 7 DAYS 02/10 completed Not Available Not Available Not Available naproxen 500 mg tablet 02/10 completed Medicati on ID: [id number] D uration Value: 10 Brand Name: naproxen Send Method: E-Prescr ibed Sub s Allowed: subs OK Medic ationGen ericName : naproxen Not Available Not Available Not Available amoxicill in 875 mg-potass ium clavulana te 125 mg tablet TAKE 1 TABLET BY MOUTH TWICE A DAY active Not Available Not Available No t Available azithromy raymundo 500 mg tablet TAKE 1 TABLET BY MOUTH DAILY FOR 5 DAYS 02/10 completed Not Available Not Available Not Available Vitamin D3 25 mcg (1,000 unit) tablet TAKE 1 TABLET BY MOUTH EVERY DAY active Not Available Not Available No t Available duloxetin e 30 mg capsule,d elayed release TAKE 1 CAPSULE BY MOUTH TWICE A DAY active Not Available Not Available No t Available arformote rol 15 mcg/2 mL solution for nebulizat ion INHALE 2MLS BY MOUTH EVERY 12HRS NEEDED FOR 30 DAYS active Not Available Not Available No t Available omeprazol e 20 mg tablet,de layed release TAKE 1 TABLET BY MOUTH EVERY DAY active Not Available Not Available No t Available Gavilax 17 gram/dose oral powder PLEASE SEE ATTACHED FOR DETAILED DIRECTIO NS active Not Available Not Available No t Available roflumila st 500 mcg tablet TAKE 1 TABLET BY MOUTH EVERY DAY active Not Available Not Available No t Available Farxiga 5 mg tablet TAKE 1 TABLET BY MOUTH EVERY DAY active Not Available Not Available No t Available Jardiance 10 mg tablet TAKE 1 TABLET BY MOUTH EVERY DAY IN THE MORNING active Not Available Not Available No t Available Incruse Ellipta 62.5 mcg/actua tion powder for inhalatio n 02/10 completed Medicati on ID: [id number] D uration Value: 30 Brand Name: Incruse Ellipta Send Method: E-Prescr ibed Sub s Allowed: subs OK Medic ationGen ericName : Incruse Ellipta Not Available Not Available Not Available Breo Ellipta 200 mcg-25 mcg/dose powder for inhalatio n 02/10 completed Medicati on ID: [id number] D uration Value: 30 Brand Name: Breo Ellipta Send Method: E-Prescr ibed Sub s Allowed: subs OK Medic ationGen ericName : Breo Ellipta Not Available Not Available Not Available Entresto 49 mg-51 mg tablet TAKE 1 TABLET BY MOUTH TWICE A DAY active Not Available Not Available No t Available Entresto 24 mg-26 mg tablet TAKE 1 TABLET BY MOUTH TWICE A DAY active Not Available Not Available No t Available Yupelri 175 mcg/3 mL solution for nebulizat ion USE 1 AMP VIA NEBULIZE R EVERY DAY active Not Available Not Available No t Available Paxlovid 300 mg (150 mg x 2)-100 mg tablets in a dose pack TAKE TWO 150 MG NIRMATRE LVIR W/ ONE 100 MG RITONAVI R TAB BY MOUTH TWICE A DAY FOR 5 DAYS 02/10 completed Not Available Not Available Not Available Vitals Date Recorded Body height Body weight Provider Name and Address Organization Details Last Updated DateTime 02/10/2025 157.48 cm 96283.6 g Valorie Rodriguez [place] - [facility] 02/10/2025 11:36:58 Date Recorded Body height Body mass index (BMI) Body weight Provider Name and Address Organization Details Last Updated DateTime 06/07/2025 157.48 cm 24 kg/m2 79742.6 g Carolee Zhao [place] - [facility] 06/07/2025 11:06:06 Social History None recorded. Functional Status None recorded. Mental Status None recorded. Family History Nothing Reported. Medical History Condition Response Heart Problems Y Heart Attack ([place]) Y Cancer Y Arthritis Y Past Encounters Encounter ID Performer Location Encounter Start Date Encounter Closed Date Diagnosis/Indication Diagnosis SNOMED-CT Code Diagnosis ICD10 Code Diagnosis IMO Codes Diagnosis Note [id number] KATIE RAMIREZ MD [facility] on [address] [place] [address] 02/10/2025 11:00:01 02/10/2025 11:57:58 Gastroesophageal reflux disease without esophagitis [id number] K21.9 Exam was benign. Laryngosco py showed [place] ing. I feel the symptoms are likely due to extra esophageal reflux disease. We will begin a six-week trial of omeprazole which was sent to their pharmacy. We will plan a follow up in 3-4 months to reassess. Chronic sore throat 2754 62706 J31.2 See above Chronic hoarseness 38030 09882 105 R49.0 See above [id number] KATIE RAMIREZ MD [facility] on [address] [place] [address] 06/07/2025 10:52:56 06/07/2025 11:33:13 Gastroesophageal reflux disease without esophagitis 517249497 K21.9 I recommend he stop omeprazole as he did not benefit in terms of his throat symptoms.. Chronic sore throat 2754 93838 J31.2 Etiology unclear. Unlikely to be LPR as he did not benefit from omeprazole . I recommend a CT of the neck with contrast to occlude occult pathology. He will follow-up to review. Chronic hoarseness 62450 90571 105 R49.0 Etiology unclear. Unlikely to be LPR as he did not benefit from omeprazole . I recommend a trial of voice therapy. I will refer him for this. Health Concerns Section Related Observation LastModified by Organization Detai ls LastModified Time None Recorded Concern Status LastModified by Organization Details LastModified Time None Recorded Advance Directives Directive None Recorded Payers Insurance Date Sequence Insurance Name Policy Number Policy Cloud Covered Member ID Cloud Member ID Guarantor Name [id number] 1 [place] [employer] Aj Butt [id number] Aj Butt 2025 2 [place] [facility] Paulino Filomena [id number] Aj Butt Notes Date Note Type Note Provider Name and Address Organization Details Recorded Time 02/10/2025 text/html ROS as noted in the HPI He reports chronic sore throat. He has had sore throat for 6 weeks. 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 In the past he could sing for longer. He has some pain swallowing. He is able to eat and drink without much trouble. Has some difficulty swallowing pills. Doesn't smoke. Only smoked for 4 years in the 80s but has COPD which he thinks is due to industrial exposure. Denies heartburn. KATIE RAMIREZ MD [address] [place] [address], [phone], [facility] - [facility] 02/10/2025 11:59:06 06/07/2025 text/html ROS as noted in the HPI He presented with chronic sore throat and hoarseness. He took omeprazole for 2 months without benefit. He continues to have intermittent sore throat and hoarseness. He denies postnasal drip and allergy. KATIE RAMIREZ MD [address] [place] [address], [place], [address], [facility] - [facility] 06/07/2025 11:30:31
--- OUTSIDE RECORDS SUMMARY | 2025-08-22 11:23 | XMS_ITS | Data Portability ---
Author Organization [place] - [facility] Address [address] [place] [address] Care Team Providers Care Relocation Director Name Role Phone TRINIDAD WYMAN Primary Care Provider ZAIDA ARAGON Terrazzo Supervisor Assessment Encounter Date Assessment Date Assessment LastModified by Organization Details LastModified Time 08/23/2021 08/23/2021 Proper Personal Protective Equipment (PPE), including gloves, gown, shoe covers, eye protection and masks were donned and doffed appropriately and all equipment cleaned using approved technique with germicidal disposable wipes prior to and after care of this patient according to [facility]'s infection prevention protocols. Overview/History: 61 yo male [...] Neuro: No focal deficits, patient GCS- 456, CN s II-XII grossly normal Psych: Calm, cooperative, [...] I have accessed patient records on the [employer]. This information was pertinent in my medical decision making today. [email or web address] Not available 08/23/2021 15:53:20 09/12/2021 09/12/2021 Overview/History [...] after care of this patient according to [facility] infection prevention protocols. Time On Scene [...] after care of this patient according to [facility] protocols. Time On Scene with Patient: 00:27:04 [email or web address] Not available 11/11/2021 12:06:04 01/15/2022 01/15/2022 Overview/History [...] narcotics) with dull percussion lower quadrants. No [place] or pain to palpation. DDx considered, but [...] after care of this patient according to [facility]'s infection prevention protocols. [email or web address] Not available 01/15/2022 18:33:51 01/16/2022 01/16/2022 Time On Scene with Patient: 00:32:07 - Referred - Point of Care: Emergency Department [email or web address] Not available 01/16/2022 14:47:54 Plan of Treatment Reminders Order Date Submit Date Provider Last Modified By Organization Details Last Modified Time Details Appointments None recorded. Lab rapid flu (A+B) 2021 022 [email or web address] [facility], [address] [place] [address], [id number], 17:59:25 CBC w/ auto diff - Collected by [facility] 2021 LEROY [facility] (Centralized Electronic Ordering - All Locations), Patient Can Go To The Location Of Their Choice, [id number] 00:19:19 CMP, serum or plasma 2021 LEROY [facility] (Centralized Electronic Ordering - All Locations), Patient Can Go To The Location Of Their Choice, 00:52:42 rapid SARS CoV + SARS CoV 2 Ag, QL IA, respirato ry specimen 2020 [facility], [address] [place] [address], [id number], 15:40:14 unlisted lab - covid-19 (novel coronavir us) PCR 2020 [email or web address] [facility] (Centralized Electronic Ordering - All Locations), Patient Can Go To The Location Of Their Choice, [id number] 13:54:49 Referral None recorded. Procedures None recorded. Surgeries None recorded. Imaging XR, abdomen 2021 [facility], [address] [place], [address], 06:47:37 XR, chest, 2 view 2021 [facility], [address] [place], [address], 06:52:34 XR, chest, 2 view - pt has stage 4 COPD 2021 [facility], [address] [place], [address], 2 11:29:01 XR, chest, 2 view - pending COVID PCR 2020 [facility] [employer] [address] , [address], [place], [address], 13:34:12 XR, chest, 2 view - Ordered by [facility] g[facility]; R/O rib fractures left chest around 7th/8th ribs, chronic bronchiti s, vs acute PNA vs pulmonary contusion 2020 021 [email or web address] [facility], [facility] [place], [address], 16:45:10 Medication Orders doxycycli ne hyclate [address], [address] [place], [address], 20:02:32 prednison e [address] tablet [address], [address] [place], [address], 16:56:55 prednison e 10 mg tablet [address], [address] [place], [address], 16:57:00 prednison e 10 mg tablet [address], [address] [place], [address], 2 16:57:00 doxycycli ne hyclate 100 [address] capsule [address] [facility]2024, [address] [place], [address], 15:08:02 prednison e 20 mg tablet [address], [address] [place], [address], 16:56:55 Patient TargetsNo targets recorded. Patient Instructions Encounter Date Encounter Id Patient Instructions Last Modified By Organization Details Last Modified Time 08/23/2021 [id number] Inhaler Instructions Before use, you need to prime the inhaler: Take the cap off the mouthpiece and put the inhaler in the spacer Shake the inhaler for 5 seconds Hold the inhaler upright with 1 finger on the top of the canister, the thumb on the bottom of the inhaler, and your other hand holding the spacer Express a large breath Close lips around spacer Press down on the canister After you press down on the canister, breathe (or have your child breathe in) deeply and slowly and hold your breath for 10 seconds Take out of your mouth and slowly exhale If you were instructed to take 2 puffs of the inhaler, wait one minute before you give the second puff. Shake the inhaler again before the second puff. If the inhaler is a steroid medicine (also called a g lucocorticoid or c orticosteroid ), rinse out your mouth, gargle, and spit out the water Cleaning: If you use the inhaler every day, you need to clean it at least once a week. If you use less often, clean the inhaler when you see powder in or around the hole. To clean an inhaler: Remove the canister and cap from the mouthpiece. Do not wash the canister or put the canister under water. Run warm water through the mouthpiece for 30 to 60 seconds Shake the water off of the mouthpiece and let it air dry Clean the spacer every 1-2 weeks. First, remove the inhaler from the spacer. Wash the spacer with warm water and dishwashing soap, but do NOT rinse it. Then let it air dry. Leaving the spacer a little soapy after cleaning actually helps it work better. [email or web address] Not available 08/23/2021 14:38:30 09/12/2021 [id number] Thank you for yo ur visit with [facility] today. We cannot always find the exact [...] in your condition between 8am-10pm, please call [facility] at [phone] to help navigate your care. [email or web address] Not available 09/12/2021 20:52:18 01/15/2022 [id number] -Wrote all above instruction out due to [...] Resul t repor kingsley to the [facility]. To preve nt error s in diagn [...] perfo rmed by real time PCR [facility] ALFONSO [employer] SARS- CoV-2 test. Not Available [facility] (Centralized Electronic Ordering - All Locations) Patient Can Go To The Location Of Their Choice, [id number] 09/23/2021 15:12:17 09/12/20 21 09/13/2021 COVID -19 (NOVE L CORON AVIRU S) PCR covid-19 PCR specimen source NASAL Not Available [facility] (Centralized Electronic Ordering - All Locations) Patient Can Go To The Location Of Their Choice, [id number] 09/23/2021 15:12:17 09/12/20 21 09/12/2021 rapid SARS CoV + SARS CoV 2 Ag, QL IA, respi rator y speci men Covid-19 (ref: neg) negati ve Not Available Spr - Home [address] [facility], [place], [address], 09/12/2021 15:39:33 09/12/20 21 09/12/2021 rapid SARS CoV + SARS CoV 2 Ag, QL IA, respi rator y speci men Control Visual ized/V alid Not Available [facility] - Home [address] [place], [address], 09/12/2021 15:39:33 09/12/20 21 09/12/2021 rapid SARS CoV + SARS CoV 2 Ag, QL IA, respi rator y speci men Location [facility], [facility], [address] [place] [address], [id number] Not Available [facility] - Home [address] [place], [address], 09/12/2021 15:39:33 09/12/20 21 09/12/2021 rapid SARS CoV + SARS CoV 2 Ag, QL IA, respi rator y speci men Race & Ethnicity Other White Not Available [facility] - Home [address] [place], [address], 09/12/2021 15:39:33 09/12/20 21 09/12/2021 rapid SARS CoV + SARS CoV 2 Ag, QL IA, respi rator y speci men Language Englis h Not Available [facility] - Home [address] [place], [address], 09/12/2021 15:39:33 01/16/20 22 01/15/2022 COMPL ETE CBC WITH DIFF WBC 28.3 [...] 00:19:19 01/16/2001/15/2022 COMPL ETE CBC WITH DIFF RDW-SD 59.2 [...] Go To The Location Of Their Choice, [id number] 01/16/2022 00:19:19 01/16/2001/16/2022 COMPL ETE CBC WITH [...] Go To The Location Of Their Choice, [address] 01/16/2022 00:19:19 01/16/2001/16/2022 COMPL ETE CBC WITH DIFF lymph 3.4 % (15-43 ) low Not Available [facility] (Centralized Electronic Ordering - All Locations) Patient Can Go To The Location Of Their Choice, [id number] 01/16/2022 00:19:19 01/16/2001/16/2022 COMPL ETE CBC WITH DIFF monocyte 5.1 % (4.5-1 0.5) Not Available [facility] (Centralized Electronic Ordering - All Locations) Patient Can Go To The Location Of Their Choice, 01/16/2022 00:19:19 01/16/2001/16/2022 COMPL ETE CBC WITH DIFF eo 0.1 % (0-6) Not Available [facility] (Centralized Electronic Ordering - All Locations) Patient Can Go To The Location Of Their Choice, [address] 01/16/2022 00:19:19 01/16/2001/16/2022 COMPL ETE CBC WITH [...] ve Not Available [facility] - Home [address] [place], [address], 01/15/2022 17:36:50 01/16/20 22 01/15/2022 rapid flu (A+B) Flu B (ref: neg) negati ve Not Available [facility] - Home [address] [place], [address], 01/15/2022 17:36:50 01/16/20 22 01/15/2022 rapid flu (A+B) Control Visual ized/V alid Not Available [facility] [address] [facility], [place], [address], 01/15/2022 17:36:50 01/16/20 22 01/15/2022 rapid flu (A+B) Location [facility], [facility], [address] [facility] [facility], [place] [address], [id number] Not Available Spr - Home [address], [place], [address], 01/15/2022 17:36:50 08/26/20 21 08/26/2021 XR, chest , 2 view No observ ation record ed. [email or web address] [facility] Scheduling (Inpatient) [address] [place], [address], 08/26/2021 11:43:00 09/13/20 21 09/13/2021 XR, chest , 2 view No observ ation record ed. [facility] ([facility] [employer]) [address] , [address], [place], [address], 09/15/2021 12:49:20 11/12/19 22 11/11/2021 XR, chest , 2 view No observ ation record ed. [email or web address] [facility] [address] [place], [address], 11/14/2021 18:55:38 01/22/20 22 01/20/2022 XR, abdom en No observ ation record ed. [email or web address] Not Available 07/2022 14:38:41 01/22/20 22 01/20/2022 XR, chest , 2 view No observ ation record ed. [email or web address] [facility] (Imaging) [address] [place], [address], 01/26/2022 14:38:46 Result Notes None recorded. Problems Name Problem SNOMED Code Status Onset Date Resolution Date Notes Provider Name and Address Organization Details Recorded Time Hypertensive disorder 64957950 Active 2018 FANNY VIJAY , TERRANCE [address], [place], [address], [place] [facility] 9 20:30:11 Problem Notes None recorded. Procedures Surgical History Date Name Laterality Status Provider Name and Address Organization Details Recorded Time 9 IV Start Procedure - completed ANAMARIA ALFARO [address], [place], [address], [place] [facility] 07/10/2019 21:56:04 9 IV Start Procedure - completed DENISE SCOTT NP [address], [place], [address], [place] [facility] 06/18/2019 16:39:55 9 Nebulizer treatment - completed DENISE SCOTT NP [address], [place], [address], [place] [facility] 06/19/2019 00:03:30 fixation of intestine completed Milady KEEN NP [address], [place], [address], [place] [facility] 09/12/2021 15:09:52 Imaging Results None recorded. Procedure Notes None recorded. Medical Equipment None Reported. Allergies Allergen ID Allergen Name Allergen Category Reaction Reaction Severity Criticality Documentation Date Start Date Code Code System Note Provider Name and Address Organization Details Recorded Time 352188 Cipro medicatio n Not available Not available Not available 09/12/202124969 3 RxNorm Milady KEEN, TERRANCE [address], [place], [address], [place] [facility] 15:06:28 [id number] Levaquin medicatio n Not available Not available Not available 09/12/2021 26780 2 RxNorm Milady KEEN, TERRANCE [address], [place], [address], [place] [facility] 15:06:39 [id number] Bactrim medicatio n Not available Not available Not available 09/12/2021 05135 9 RxNorm dizzi ness Milady KEEN, TERRANCE [address], [place], [address] , [place] [facility] 15:32:53 Medications Name [...] Not Available Not Available BD Regular Bevel Perry 18 gauge x 1 09/12 completed Not [...] Inhaled oxygen flow rate Respiratory rate Systolic And Diastolic Provider Name and Address Organization Details Last Updated DateTime 2 118 /min 98.1 [degF] 98 % 98 % 3 L/min 20 /min 106/70 mm[Hg] Not Available [facility] 2 17:11:50 Date Recorded Heart rate Oxygen saturation Oxygen saturation in Arterial blood by Pulse oximetry Inhaled oxygen flow rate Respiratory rate Body temperature Body temperature Systolic And Diastolic Provider Name and Address Organization Details Last Updated DateTime 2 116 /min 96 % 96 % 4 L/min 22 /min 100.3 [degF] 99.7 [degF] 138/9 0 mm[Hg] Not Available [facility] 2 16:59:38 Date Recorded Body temperature Oxygen saturation Oxygen saturation in Arterial blood by Pulse oximetry Heart rate Respiratory rate Systolic And Diastolic Provider Name and Address Organization Details Last Updated DateTime 2 98.8 [degF] 93 % 93 % 110 /min 20 /min 118/82 mm[Hg] Not Available [facility] 2 14:22:28 Date Recorded Respiratory rate Body temperature Oxygen saturation Oxygen saturation in Arterial blood by Pulse oximetry Heart rate Systolic And Diastolic Provider Name and Address Organization Details Last Updated DateTime 1 16 /min 97.8 [degF] 95 % 95 % 80 /min 124/78 mm[Hg] Not Available [facility] 1 14:44:36 Date Recorded Oxygen saturation Oxygen saturation in Arterial blood by Pulse oximetry Provider Name and Address Organization Details Last Updated DateTime 09/12/2021 95 % 95 % Milady KEEN NP [address], [place], [address], [place] [facility] 09/12/2021 20:20:55 Date Recorded Respiratory rate Oxygen saturation Oxygen saturation in Arterial blood by Pulse oximetry Inhaled oxygen flow rate Heart rate Body temperature Systolic And Diastolic Provider Name and Address Organization Details Last Updated DateTime 1 18 /min 99 % 99 % 3 L/min 90 /min 97.6 [degF] 122/80 mm[Hg] Not Available [facility] 15:17:24 Social History Question Answer Notes LastModified by Organizat ion Details LastModified Time Tobacco Smoking Status Former Smoker FANNY LINARES, TERRANCE [address], [place], [address], [place] [facility] 02/14/2019 20:30:34 Do You [...] History Condition Response Coronary Artery Disease N COPD Y Depression N Hypothyroidism N A-fib N Cancer Y Stroke N High Cholesterol N Rheumatoid Arthritis N Kidney Disease N Parkinson's Disease N Diabetes N CHF N Dementia N Asthma N Pulmonary Embolism N Hypertension Y Osteoporosis N Past Encounters Encounter ID Performer Location Encounter Start Date Encounter Closed Date Diagnosis/Indication Diagnosis SNOMED-CT Code Diagnosis ICD10 Code Diagnosis IMO Codes Diagnosis Note [id number] FANNY LINARES NP [facility] - [address] [place] [address] 02/14/2019 20:20:29 02/15/2019 13:19:41 Strain of neck muscle 057015125 S16.1XXA [id number] DENISE SCOTT NP [facility] [address] [facility] [place] [address] 06/18/2019 14:19:58 06/21/2019 14:15:53 Dyspnea 838275018 R06.02 Acute exac erbation of chronic obstructive pulmonary disease 425819550 J44.1 [id number] DENISE SCOTT NP [facility] - [facility] [address] [place] [address] 06/25/2019 13:50:21 06/26/2019 11:26:51 Dyspnea 477516982 R06.02 Cough 49069046 R05 chronic Anxiety 15570039 F41.9 takes lorazepam. May be increased given prednisone use. [id number] ANAMARIA ALFARO [facility] [address] [place] [address] 06/29/2019 20:09:41 06/30/2019 13:56:44 Acute exacerbation of chronic obstructive pulmonary disease 883845769 J44.1 [id number] ANAMARIA ALFARO [facility] [address] [place] [address] 07/10/2019 10:23:10 07/11/2019 11:32:34 Pneumonia 278404938 J18.9 Headache 60270940 R51 Mild dehydration 6913163 119 108 E86.0 Acute exac erbation of chronic obstructive pulmonary disease 729425313 J44.1 [id number] ANAMARIA ALFARO [facility] [address] [facility] [place] [place] [address] 11/03/2019 15:07:16 11/04/2019 12:01:15 Impacted cerumen of bilateral ears 4589592616 984671 H61.23 [id number] ANAMARIA JOHNSON [facility] [address] [facility] [place] [place] [address] 02/12/2021 16:23:46 02/13/2021 14:31:47 Acute appendicitis 88375052 K35.80 [id number] VERONICA BIANCHI NP [facility] - HOME [address] [place] [address] 08/23/2021 14:35:56 08/29/2021 12:47:06 Acute exacerbation of chronic obstructive pulmonary disease 767508303 J44.1 Rib pain 107280934 R07.8 1 8th to 9th rib on the left [id number] Milady KEEN, TERRANCE [facility] [address] [place] [address] 09/12/2021 14:59:32 09/18/2021 12:05:22 Exposure to SARS-CoV-2 429787769 Z20.822 Chronic ob structive pulmonary disease 99179665 J44.9 Postviral cough 85800965 4 R05.9 previously completed 2 courses of doxycyclin e 100 mg PO BID x 7 daysthen took 2 doses of bactrim that he started yesterday but stopped after feeling dizzy and high Exposure t o communicable disease 412959952 Z20.822 [id number] DARELL MARTEL NP [facility] [address] [place] [address] 11/10/2021 16:21:10 11/13/2021 08:53:23 Acute exacerbation of chronic obstructive pulmonary disease 996940442 J44.1 [id number] Jacki Root NP [facility] - HOME [address] [place] [address] 01/15/2022 16:53:35 01/16/2022 13:47:02 Fever 475353512 R50.9 Dyspnea 439559175 R06.00 Acute exac erbation of chronic obstructive pulmonary disease 684039191 J44.1 Constipation 82438803 K5 9.00 [id number] ANAMARIA Cartagena [facility] - [facility] [address] [place] [address] 01/16/2022 13:42:37 01/18/2022 11:32:31 Acute exacerbation of chronic obstructive pulmonary disease 780080375 J44.1 Aj has had 2 doses doxycyclin e, his WBC count was 28 k, he did not make it today to have his chest xray, therefore he will go to [facility] ED for eval. I did call [...] Guarantor Name 08/23/2021 1 *SELF PAY* Altaf Filomena [id number] Aj Butt 08/23/2021 1 [place]IC[place] B-[place] [facility] Altaf Butt [id number] Aj Butt 08/23/2021 1 [place] [facility] Aj Butt [id number] Aj Butt 08/23/2021 2 [place] [facility] Altaf Butt [id number] Aj Butt 08/23/2021 1 [place] [facility] Altaf Butt [id number] Aj Butt 01/16/2022 1 [place] [facility] Aj Butt [id number] Aj Butt 08/23/2021 1 *SELF PAY* Aj Butt [id number] Aj Butt 01/20/2022 2 [place] [facility] Aj Butt [id number] Aj Butt Notes Date Note Type Note Provider Name and Address Organization Details Recorded Time 08/23/2021 text/html General HPI Temp late - DHReported by Patient 61 yo male who is known to but new to this provider. [...] diarrhea. VERONICA BIANCHI, TERRANCE [address], [place], [address], [place] [facility] 08/23/2021 15:56:29 09/12/2021 text/html This is a thin 61 year old male, who is chronically ill, [...] Pfizer. Milady KEEN, TERRANCE [address], [place], [address], [place] [facility] 09/12/2021 20:52:44 11/10/2021 text/html Onset three days Location upper respiratory Duration intermittent Characteristics mild Aggravates/Alleviates no known factors DARELL MARTEL, TALENT ACQUISITION SPECIALIST [address], [place], [address], [place] [facility] 11/11/2021 12:09:09 01/15/2022 text/html [...] Left sided back pain. Has not seen [employer] in a while but thinks he has [...] today Jacki Root NP [address], [place], [address], [place] [facility] 01/15/2022 20:02:45 01/16/2022 text/html [...] started today. ANAMARIA Cartagena [address], [place], [address], [place] [facility] 01/16/2022 15:02:36
== END 2025-08-22 10:21 | disposition home or self-care (01) ==
LOC: HO.HGS 09:53
PROVIDERS: PCP Internal Medicine; Visit Provider Surgery
DX: D17.9 Benign lipomatous neoplasm, unspecified (principal)
CPT/HCPCS: 99214

== ENCOUNTER → 2025-08-22 09:53 | Outpatient (BNVA) | payer MEDICARE, MEDICAID, SELFPAY | PROVIDERS: PCP Internal Medicine; Visit Provider Surgery | DX: Z01.818 Encounter for other preprocedural examination (principal); D17.9 Benign lipomatous neoplasm, unspecified | CPT/HCPCS: 99212 ==

== ENCOUNTER 2025-09-25 14:28 | Outpatient (AMB) | payer MEDICARE, MEDICAID, SELFPAY ==
--- NOTE | 2025-09-25 14:35 | MHC.OFFVIS ---
Vital Signs 09/25/25 15:03 Height 5 ft 4 in Weight 112 lb 6.972 oz BMI 19.3 BP 118/62 Blood Pressure Location Lt brachial Position Sitting Pulse 68 Intake Visit Reasons: multiple lipoma removal Intake Note: Patient is seen for office procedure: Excision of multiple lesions of the back. 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 Required: No Accompanied by: Other Relationship Allergies ciprofloxacin (From Cipro) Allergy (Severe, Verified 09/25/25 14:36) Redness on Face levofloxacin (From Levaquin) Allergy (Severe, Verified 09/25/25 14:36) Swelling in the Joints hydromorphone (From Dilaudid) Adverse Reaction (Intermediate, Verified 09/25/25 14:36) Anxiety bactrim Adverse Reaction (Severe, Uncoded 09/25/25 14:36) Nausea Medication List - Last Reconciled 09/25/25 by Arnaud Kamara MD albuterol sulfate mg inhalation albuterol sulfate 2.5 mg (3 mL) inhalation Q6H PRN 30 days albuterol sulfate 90 mcg/actuation 2 puffs inhalation Q4H PRN amoxicillin-pot clavulanate 875-125 mg 1 tab PO BID 14 days arformoterol (Brovana) 2 mL inhalation Q12H 30 days aspirin 81 mg PO DAILY bisoprolol fumarate 10 mg PO DAILY budesonide 0.5 mg (2 mL) inhalation BID 30 days cetirizine 10 mg PO DAILY PRN cholecalciferol (vitamin D3) (Vitamin D3) 25 mcg PO DAILY cyclobenzaprine 10 mg PO BID PRN docusate sodium 200 mg PO BID PRN duloxetine 30 mg PO BID ibuprofen 600 mg PO Q6H PRN meloxicam 15 mg PO DAILY methadone 10 mg PO TID nebulizers As directed ondansetron 4 mg PO Q6-8H PRN pantoprazole 40 mg PO DAILY prednisone 5 mg PO DIRECTED prednisone 10 mg PO BID 30 days revefenacin (Yupelri) 175 mcg (3 mL) inhalation DAILY 30 days roflumilast 500 mcg PO DAILY sacubitril-valsartan 49-51 mg (Entresto) 1 tab PO BID theophylline ER mg PO theophylline ER 300 mg PO Q12H valacyclovir 500 mg PO BID HPI Comments Details: Patient returns for excision of lipomas x2 including a 2 cm lipoma of the left anterior chest below the left nipple and a 3 cm lipoma in the upper midback. [facility] Medical History ALOK (obstructive sleep apnea) Infection due to human metapneumovirus (hMPV) Human metapneumovirus (hMPV) pneumonia Transient global amnesia Chronic respiratory failure Pleuritic chest pain Pre-op chest exam Chondrocalcinosis Chronic neck and back pain Asthma Asthma-COPD overlap syndrome Asthma FH: bowel obstruction Bronchitis Pulmonary nodules Back pain Dyspnea COPD (chronic obstructive pulmonary disease) Surgical History Hx of colonoscopy History of esophagogastroduodenoscopy (EGD) History of partial colectomy History of hernia repair History of lung biopsy Family History Mother History of lung cancer Social History Household Members: Spouse and Caregiver Household Members Other:: son, daughter, dog, 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 Housing: House Do you presently have visiting nurse or other home services: No (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) Alcohol intake: former Patient Tobacco Use Status: Former Tobacco user Tobacco use type: Cigarette Cigarette Packs Per Day: 1 Cigarettes Per Day: 20.0 Years Smoked: 8 Second Hand Smoke Exposure: No Substance Use Type: Caffiene service: No Current occupational status: disabled Office Procedures Excision Details: Preoperative diagnosis: Lipoma left chest and upper midback Postoperative diagnosis: Same Procedure: Excision of lipoma left chest and upper midback Surgeon: Arnaud Kamara MD Email Marketing Specialist: None Anesthesia: Lidocaine 1% with epinephrine Indications for procedure: 65-year-old male patient presenting with painful soft tissue mass located in the upper midback as well as the left chest below the nipple. The lesion of the left chest measures 2 cm in the lesion in the upper midback is 3 cm. He presents today for excision. Operative findings: 2 cm left chest lipoma, 3 cm upper midback lipoma Specimen: Lipoma anterior left chest and upper midback Estimated blood loss: Less than 2 mL Complications: None Procedure details: Patient was brought to the procedure room and placed in a prone position. The site of the surgery was confirmed by the patient in the upper midback and left chest. After assuring informed consent the skin in the upper midback was prepped with Betadine and draped in a sterile fashion. Local anesthesia was then infiltrated in a transverse fashion over the palpable lump. A transverse incision was then made with a scalpel and carried out through subcutaneous tissue up to the lipoma. The lipoma was then bluntly dissected from the surrounding subcutaneous tissue and excised using a scissors. Lesion was passed off the table and sent to pathology for further examination. After assuring adequate hemostasis the skin was closed using interrupted 3-0 nylon sutures. Sterile dressings consisting of 2 x 2 gauze and Tegaderm were then applied. The attention was then directed to the anterior left chest. The patient was placed in a supine position. The skin was then prepped with Betadine and draped in a sterile fashion. Local anesthesia was then infiltrated around the lipoma. Incision was then made in a transverse fashion directly over the lipoma and carried down through the subcutaneous tissue up to the lipoma. This was then excised using Metzenbaum scissors and passed off the table. This was then sent to pathology for further examination. After assuring adequate hemostasis the skin was closed using interrupted 3-0 nylon sutures. 2 x 2 gauze and Tegaderm were then applied The patient tolerated the procedure well. He was discharged home in stable condition. 77857-vaakm/arms/legs 1.1-2cm 45162-ohrfd/arms/legs 2.1-3cm Procedure code (CPT) selection complete Assessment & Plan Assessment & Plan (1) Thoracic spine pain: Code(s): M54.6 - Pain in thoracic spine Category: Medical Plan: Patient reporting pain in the lower thoracic spine. No lipomas noted in this location. I recommended further evaluation with an x-ray of the spine. We will return in 1 week to review. (2) Lipoma: Code(s): D17.9 - Benign lipomatous neoplasm, unspecified Category: Medical Qualifiers: Lipoma location: trunk Qualified Code(s): D17.1 - Benign lipomatous neoplasm of skin and subcutaneous tissue of trunk Plan: Patient returns for excision of the 2 symptomatic lipomas including the left anterior chest and upper midback. He underwent excision today and tolerated the procedure well. He was instructed on local wound care and will return in 1 week for suture removal. Orders: Orders XR thoracic spine 2V Today M54.6 - Pain in thoracic spine Surgical Today D17.9 - Benign lipomatous neoplasm, unspecified Coding Level of Care Code Procedure Only Diagnoses Thoracic spine pain M54.6 Lipoma of torso D17.1 Lipoma location: trunk CPT Codes Trunk/Arms/Legs - CPT: 40755-sqtyi/arms/legs 1.1-2cm ([id number]) Trunk/Arms/Legs - CPT: 93969-vwwvv/arms/legs 2.1-3cm ([id number])
[2025-09-25 15:03] VITALS: BP 118/62; PULSE 68; BMI 19.3
--- OUTSIDE RECORDS SUMMARY | 2025-09-25 23:32 | XMS_ITS | Data Portability ---
Author Organization [place] - [facility] Address [address] [place] [address] Care Team Providers Care 3 Year Olds Preschool Teacher Name Role Phone TRINIDAD WYMAN Primary Care Provider [phone] ZAIDA ARAGON Electronic Development Technician Assessment Encounter Date Assessment Date Assessment LastModified by Organization Details LastModified Time 08/23/2021 08/23/2021 Proper Personal Protective Equipment (PPE), including gloves, gown, shoe covers, eye protection and masks were donned and doffed appropriately and all equipment cleaned using approved technique with germicidal disposable wipes prior to and after care of this patient according to [facility] infection prevention protocols. Overview/History: 61 yo male [...] I have accessed patient records on the [employer]. This information was pertinent in my medical decision making today. [email or web address] Not available 08/23/2021 15:53:20 09/12/2021 09/12/2021 Overview/History [...] after care of this [facility] according to [facility] protocols. Time On [...] after care of this [facility]. Time On Scene with Patient: 00:27:04 [email or web address] Not available 11/11/2021 12:06:04 01/15/2022 01/15/2022 Overview/History [...] narcotics) with dull percussion lower quadrants. No Lincoln or pain to palpation. DDx considered, but not limited to: Acute on chronic COPD exacerbations Pneumonia: fever, cough prod thick dowling/green Influenza: neg rapid Viral URI Constipation: will check KUB Obstruction/ileus/ perforation due to history and concern. Low probability but checking KUB for stool as well Work up/Results: CBCD, CMP sent to [facility]; Rapid flu neg CXR, KUB to be [...] after care of this patient according to [facility] infection prevention protocols. [email or web address] Not available 01/15/2022 18:33:51 01/16/2022 01/16/2022 Time On Scene with Patient: 00:32:07 - Referred - Point of Care: Emergency Department [email or web address] Not available 01/16/2022 14:47:54 Plan of Treatment Reminders Order Date Submit Date Provider Last Modified By Organization Details Last Modified Time Details Appointments None recorded. Lab rapid flu (A+B) 2021 022 [email or web address] [facility], [address] [place] [address], [id number], 17:59:25 CBC w/ auto diff - Collected by [facility] 2021 LEROY [facility] (Centralized Electronic Ordering - All Locations), Patient Can Go To The Location Of Their Choice, [id number] 00:19:19 CMP, serum or plasma 2021 LEROY [facility] (Centralized Electronic Ordering - All Locations), Patient Can Go To The Location Of Their Choice, 00:52:42 rapid SARS CoV + SARS CoV 2 Ag, QL IA, respirato ry specimen 2020 [facility], [address] [place] [address], [id number], 15:40:14 unlisted lab - covid-19 (novel coronavir us) PCR 2020 [email or web address] [facility] (Centralized Electronic Ordering - All Locations), Patient Can Go To The Location Of Their Choice, [id number] 13:54:49 Referral None recorded. Procedures None recorded. Surgeries None recorded. Imaging XR, abdomen 2021 [facility], [address] [place], [address], 06:47:37 XR, chest, 2 view 2021 [facility], [address] [place], [address], 06:52:34 XR, chest, 2 view - pt has stage 4 COPD 2021 [facility], [address] [place], [address], 2 11:29:01 XR, chest, 2 view - pending COVID PCR 2020 [facility] ([facility]), [address] , [address], [place], [address], 13:34:12 XR, chest, 2 view - Ordered by [facility]; R/O rib fractures left chest around 7th/8th ribs, chronic bronchiti s, vs acute PNA vs pulmonary contusion 2020 021 [facility], [facility] [place], [address], 16:45:10 Medication Orders doxycycli ne hyclate 100 mg capsule 2021 022 [facility] #2024, [address] [place], [address], 20:02:32 prednison e 20 mg tablet 2021 022 [facility] #2024, [address] [place], [address], 16:56:55 prednison e 10 mg tablet 2021 022 [facility] #2024, [address] [place], [address], 16:57:00 prednison e 10 mg tablet 2020 021 [facility] #2024, [address] [place], [address], 2 16:57:00 doxycycli ne hyclate 100 mg capsule 2020 021 [facility] #2024, [address] [place], [address], 15:08:02 prednison e 20 mg tablet 2020 021 [facility]2024, [address] [place], [address], 16:56:55 Patient TargetsNo targets recorded. Patient Instructions Encounter Date Encounter Id Patient Instructions Last Modified By Organization Details Last Modified Time 08/23/2021 [id number] Inhaler Instructions Before use, you need to [...] after cleaning actually helps it work better. Not available 08/23/2021 14:38:30 09/12/2021 [id number] Thank you for yo ur [facility]. We cannot always find the exact [...] condition between 8am-10pm, please call [facility] at [phone] to help navigate your care. [email or web address] Not available 09/12/2021 20:52:18 01/15/2022 [id number] -Wrote all above instruction out due to [...] ng. Resul t repor kingsley to the [facility]. To preve nt error s in diagn [...] perfo rmed by real time PCR utili [facility] ALFONSO [employer]0 SARS- CoV-2 test. Not Available [facility] (Centralized Electronic Ordering - All Locations) Patient Can Go To The Location Of Their Choice, [id number] 09/23/2021 15:12:17 09/12/20 21 09/13/2021 COVID -19 (NOVE L CORON AVIRU S) PCR covid-19 PCR specimen source NASAL Not Available [facility] (Centralized Electronic Ordering - All Locations) Patient Can Go To The Location Of Their Choice, [id number] 09/23/2021 15:12:17 09/12/20 21 09/12/2021 rapid SARS CoV + SARS CoV 2 Ag, QL IA, respi rator y speci men Covid-19 (ref: neg) negati ve Not Available [facility] - Home [address] [facility], [place], [address], 09/12/2021 15:39:33 09/12/20 21 09/12/2021 rapid SARS CoV + SARS CoV 2 Ag, QL IA, respi rator y speci men Control Visual ized/V alid Not Available [facility] - Home [address] [place], [address], 09/12/2021 15:39:33 09/12/20 21 09/12/2021 rapid SARS CoV + SARS CoV 2 Ag, QL IA, respi rator y speci men Location SPR, [facility], [address] [place] [address], [id number] Not Available [facility] - Home [address] [place], [address], 09/12/2021 15:39:33 09/12/20 21 09/12/2021 rapid SARS CoV + SARS CoV 2 Ag, QL IA, respi rator y speci men Race & Ethnicity Other White Not Available [facility] - Home [address] [place], [address], 09/12/2021 15:39:33 09/12/20 21 09/12/2021 rapid SARS CoV + SARS CoV 2 Ag, QL IA, respi rator y speci men Language Englis h Not Available [facility] - Home [address] [place], [address], 09/12/2021 15:39:33 01/16/20 22 01/15/2022 COMPL ETE [...] Go To The Location Of Their Choice, [id number] 01/16/2022 00:19:19 01/16/2001/16/2022 COMPL ETE CBC WITH [...] Go To The Location Of Their Choice, [id number] 01/16/2022 00:19:19 01/16/2001/16/2022 COMPL ETE CBC WITH DIFF lymph 3.4 % (15-43 ) low Not Available [facility] (Centralized Electronic Ordering - All Locations) Patient Can Go To The Location Of Their Choice, [id number] 01/16/2022 00:19:19 01/16/2001/16/2022 COMPL ETE CBC WITH DIFF monocyte 5.1 % (4.5-1 0.5) Not Available [facility] (Centralized Electronic Ordering - All Locations) Patient Can Go To The Location Of Their Choice, 01/16/2022 00:19:19 01/16/2001/16/2022 COMPL ETE CBC WITH DIFF eo 0.1 % (0-6) Not Available [facility] (Centralized Electronic Ordering - All Locations) Patient Can Go To The Location Of Their Choice, [address] 01/16/2022 00:19:19 01/16/2001/16/2022 COMPL ETE CBC WITH [...] ve Not Available [facility] - Home [address] [place], [address], 01/15/2022 17:36:50 01/16/20 22 01/15/2022 rapid flu (A+B) Flu B (ref: neg) negati ve Not Available [facility] - Home [address] [place], [address], 01/15/2022 17:36:50 01/16/20 22 01/15/2022 rapid flu (A+B) Control Visual ized/V alid Not Available [facility] - [facility] [address] [facility], [place], [address], 01/15/2022 17:36:50 01/16/20 22 01/15/2022 rapid flu (A+B) Location [facility], [facility], [address] [facility], [place] [address], [phone] Not Available [facility] - Home [address], [place], [address], 01/15/2022 17:36:50 08/26/20 21 08/26/2021 XR, chest , 2 view No observ ation record ed. [email or web address] [facility] Sched[facility] (Inpatient) [address] [place], [address], 08/26/2021 11:43:00 09/13/20 21 09/13/2021 XR, chest , 2 view No observ ation record ed. [facility] ([facility]) [address] , [address], [place], [address], 09/15/2021 12:49:20 11/12/19 22 11/11/2021 XR, chest , 2 view No observ ation record ed. [email or web address] [facility] [address] [place], [address], 11/14/2021 18:55:38 01/22/20 22 01/20/2022 XR, abdom en No observ ation record ed. [email or web address] Not Available 07/2022 14:38:41 01/22/20 22 01/20/2022 XR, chest , 2 view No observ ation record ed. [email or web address] [facility] (Imaging) [address] [place], [address], 01/26/2022 14:38:46 Result Notes None recorded. Problems Name Problem SNOMED Code Status Onset Date Resolution Date Notes Provider Name and Address Organization Details Recorded Time Hypertensive disorder 66597194 Active 2018 FANNY VIJAY , TERRANCE [address], [place], [address], [place] [facility] 9 20:30:11 Problem Notes None recorded. Procedures Surgical History Date Name Laterality Status Provider Name and Address Organization Details Recorded Time 9 IV Start Procedure - completed ANAMARIA ALFARO [address], [place], [address], [place] [facility] 07/10/2019 21:56:04 9 IV Start Procedure - completed DENISE SCOTT NP [address], [place], [address], [place] [facility] 06/18/2019 16:39:55 9 Nebulizer treatment - completed DENISE SCOTT NP [address], [place], [address], [place] [facility] 06/19/2019 00:03:30 fixation of intestine completed Milady KEEN NP [address], [place], [address], [place] [facility] 09/12/2021 15:09:52 Imaging Results None recorded. Procedure Notes None recorded. Medical Equipment None Reported. Allergies Allergen ID Allergen Name Allergen Category Reaction Reaction Severity Criticality Documentation Date Start Date Code Code System Note Provider Name and Address Organization Details Recorded Time 038919 Cipro medicatio n Not available Not available Not available 09/12/202191819 3 RxNorm Milady KEEN, TERRANCE [address], [place], [address], [place] [facility] 15:06:28 [id number] Levaquin medicatio n Not available Not available Not available 09/12/2021 77826 2 RxNorm Milady KEEN, TERRANCE [address], [place], [address], [place] [facility] 15:06:39 937888 Bactrim medicatio n Not available Not available Not available 09/12/2021 68901 9 RxNorm dizzi ness Milady KEEN, TERRANCE [address], [place], [address] , [place] - [facility] 15:32:53 Medications [...] Not Available Not Available BD Regular Bevel Burnham 18 gauge x 1 09/12 completed Not [...] Recorded Heart rate Body temperature Oxygen saturation Inhaled oxygen flow rate Respiratory rate Systolic And Diastolic Provider Name and Address Organization Details Last Updated DateTime 2 118 /min 98.1 [degF] 98 % 3 L/min 20 /min 106/70 mm[Hg] Not Available [facility] 2 17:11:50 Date Recorded Heart rate Oxygen saturation Inhaled oxygen flow rate Respiratory rate Body temperature Body temperature Systolic And Diastolic Provider Name and Address Organization Details Last Updated DateTime 2 116 /min 96 % 4 L/min 22 /min 100.3 [degF] 99.7 [degF] 138/90 mm[Hg] Not Available [facility] 2 16:59:38 Date Recorded Body temperature Oxygen saturation Heart rate Respiratory rate Systolic And Diastolic Provider Name and Address Organization Details Last Updated DateTime 2 98.8 [degF] 93 % 110 /min 20 /min 118/82 mm[Hg] Not Available [facility] 2 14:22:28 Date Recorded Respiratory rate Body temperature Oxygen saturation Heart rate Systolic And Diastolic Provider Name and Address Organization Details Last Updated DateTime 1 16 /min 97.8 [degF] 95 % 80 /min 124/78 mm[Hg] Not Available [facility] 1 14:44:36 Date Recorded Oxygen saturation Provider Name and Address Organization Details Last Updated DateTime 09/12/2021 95 % Milady KEEN, TERRANCE [address], [place], [address], [place] [facility] 09/12/2021 20:20:55 Date Recorded Respiratory rate Oxygen saturation Inhaled oxygen flow rate Heart rate Body temperature Systolic And Diastolic Provider Name and Address Organization Details Last Updated DateTime 1 18 /min 99 % 3 L/min 90 /min 97.6 [degF] 122/80 mm[Hg] Not Available [facility] 1 15:17:24 Social History Question Answer Notes LastModified by Organizat ion Details LastModified Time Tobacco Smoking Status Former Smoker FANNY VIJAY, TERRANCE [address] [facility], [place], [address], [place] [facility] 02/14/2019 20:30:34 Do You [...] handy Not available 02/14 20:30:22 Mother Malignant neoplasm [...] ICD10 Code Diagnosis IMO Codes Diagnosis Note [id number] FANNY LINARES NP [facility] - HOME [address] [place] [address] 02/14/2019 20:20:29 02/15/2019 13:19:41 Strain of neck muscle 044877161 S16.1XXA [id number] DENISE SCOTT NP [facility] - HOME [address] [place] [address] 06/18/2019 14:19:58 06/21/2019 14:15:53 Dyspnea 591779345 R06.02 Acute exac erbation of chronic obstructive pulmonary disease 062003978 J44.1 [id number] DENISE SCOTT NP [facility] - [facility] [address] [place] [address] 06/25/2019 13:50:21 06/26/2019 11:26:51 Dyspnea 337665964 R06.02 Cough 45117443 R05 chronic Anxiety 62465870 F41.9 takes lorazepam. May be increased given prednisone use. [id number] ANAMARIA ALFARO [facility] [address] [place] [address] 06/29/2019 20:09:41 06/30/2019 13:56:44 Acute exacerbation of chronic obstructive pulmonary disease 651360027 J44.1 [id number] ANAMARIA ALFARO [facility] [address] [place] [place] [address] 07/10/2019 10:23:10 07/11/2019 11:32:34 Pneumonia 106105424 J18.9 Headache 39993454 R51 Mild dehydration 7637552 119 108 E86.0 Acute exac erbation of chronic obstructive pulmonary disease 276877545 J44.1 [id number] ANAMARIA ALFARO [facility] [address] [place] [place] [address] 11/03/2019 15:07:16 11/04/2019 12:01:15 Impacted cerumen of bilateral ears 5233036936 676392 H61.23 [id number] ANAMARIA JOHNSON [facility] [address] [place] [address] 02/12/2021 16:23:46 02/13/2021 14:31:47 Acute appendicitis 49102826 K35.80 [id number] VERONICA BIANCHI NP [facility] - [facility] [address] [place] [address] 08/23/2021 14:35:56 08/29/2021 12:47:06 Acute exacerbation of chronic obstructive pulmonary disease 483232567 J44.1 Rib pain 900442515 R07.8 1 8th to 9th rib on the left [id number] Milady KEEN NP [facility] - HOME [address] [place] [address] 09/12/2021 14:59:32 09/18/2021 12:05:22 Exposure to SARS-CoV-2 587635748 Z20.822 Chronic ob structive pulmonary disease 45882558 J44.9 Postviral cough 77427730 4 R05.9 previously completed 2 courses of doxycyclin e 100 mg PO BID x 7 daysthen took 2 doses of bactrim that he started yesterday but stopped after feeling dizzy and high Exposure t o communicable disease 618523973 Z20.822 [id number] DARELL TERRANCE MARTEL [facility] [address] [place] [address] 11/10/2021 16:21:10 11/13/2021 08:53:23 Acute exacerbation of chronic obstructive pulmonary disease 919077912 J44.1 [id number] Jacki Root NP [facility] - [facility] [address] [place] [address] 01/15/2022 16:53:35 01/16/2022 13:47:02 Fever 743796635 R50.9 Dyspnea 742958614 R06.00 Acute exac erbation of chronic obstructive pulmonary disease 788540037 J44.1 Constipation 89930393 K5 9.00 [id number] ANAMARIA Cartagena [facility] [address] [place] [address] 01/16/2022 13:42:37 01/18/2022 11:32:31 Acute exacerbation of chronic obstructive pulmonary disease 077311780 J44.1 Aj has had 2 doses doxycyclin e, his WBC count was 28 k, he did not make it today to have his chest xray, therefore he will go to [facility] ED for eval. I did call for them to expect, and gave them blood results. i also wrote it down and gave to Aj to give to triage. Pt. was escalated. Health Concerns Section Related Observation LastModified by Organization Doris crandall LastModified Time None Recorded Concern Status LastModified by Organization Details LastModified Time None Recorded Advance Directives Directive Y: Payers Insurance Date Sequence Insurance Name Policy Number Policy Cloud Covered Member ID Cloud Member ID Guarantor Name 08/23/2021 1 *SELF PAY* Altaf Butt [id number] Aj Butt 08/23/2021 1 MEDIC[place] B-[place] [facility] Altaf Butt [id number] Aj Butt 08/23/2021 1 [place] [facility] Aj Butt [id number] Aj Butt 08/23/2021 2 [place]ID-[place] [facility] Altaf Butt [id number] Aj Butt 08/23/2021 1 [place] B-[place] [facility] Altaf Butt [id number] Aj Butt 01/16/2022 1 [place] [facility] Aj Butt [id number] Aj Butt 08/23/2021 1 *SELF PAY* Aj Butt [id number] Aj Butt 01/20/2022 2 [place] [facility] Aj Butt [id number] Aj Metzgerendez Notes Date Note Type Note Provider Name [...] Denies hemoptysis, nausea, vomiting or diarrhea. VERONICA BIANCHI NP [address], [place], [address], [place] [facility] 08/23/2021 15:56:29 09/12/2021 text/html [...] Pfizer. Milady KEEN, TERRANCE [address], [place], [address], [place] [facility] 09/12/2021 20:52:44 11/10/2021 text/html Onset three days Location upper respiratory Duration intermittent Characteristics mild Aggravates/Alleviates no known factors DARELL MARTEL NP [address], [place], [address], [place] [facility] 11/11/2021 12:09:09 01/15/2022 text/html [...] Left sided back pain. 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 ANAMARIA Cartagena [address], [place], [address], [place] [facility] 01/16/2022 15:02:36
--- OUTSIDE RECORDS SUMMARY | 2025-09-25 23:32 | XMS_ITS | Data Portability ---
Author Organization [place] - [facility], Allergy Address [address] [address] Care Team Providers Care Entry Level Civil Engineer Name Role Phone TRINIDAD WYMAN Primary Care Provider KAMITRINIDAD Ochoa Primary Care Provider Assessment No assessment recorded. Plan of Treatment Reminders Order Date Submit Date Provider Last Modified By Organization Details Last Modified Time Details Appointments None recorded. Lab None recorded. Referral speech language pathologist referral 2024 025 [email or web address] [facility], [address] [place] [address], [id number], 5 12:10:38 Procedures None recorded. Surgeries None recorded. Imaging CT, neck, soft tissue, w/ contrast - exclude occult pathology 2024 025 [email or web address] [facility], [address] [place], [address], 5 16:12:50 Medication Orders omeprazole 20 mg tablet,maddy yed release 2024 025 [facility] #[facility], [address] [place], [address], 5 11:57:04 Patient TargetsNo targets recorded. Patient InstructionsNo instructions recorded. Reason for Referral Speech Language Pathologist Referral for Chronic hoarseness Referring Physician: Katie Ramirez, Otolaryngology, Encounter Date: 06/07/2025 Results Created Date Observation Date Name Description Value Unit Range Abnormal Flag Note LastModifiedBy Organization Detail LastModifiedTime 06/16/2006/16/2025 CT, neck, soft tissu e, w/ contr ast No observ ation record ed. eda [facility] [address] [facility], [place], [address], 06/21/2025 14:06:27 Result Notes None recorded. Problems Name Problem SNOMED Code Status Onset Date Resolution Date Notes Provider Name and Address Organization Details Recorded Time Deviated nasal septum 888956651 Active 2018 Deviated nasal septum; Note: Date Diagnosed : 03/24/2019 12:49 PM (J34.2) Not Available formerly [facility] 4 02:59:51 Bleeding from nose 673322372 Active 2018 Epistaxis ; Note: Date Diagnosed : 03/24/2019 10:20 AM (R04.0) Not Available formerly [facility] 4 02:59:52 Dysphonia 22039985 Active 2018 Hoarsenes s; Note: Date Diagnosed : 03/24/2019 10:20 AM (R49.0) Not Available formerly [facility] 4 02:59:49 Impacted cerumen of bilateral ears 04082604149 69570 Active 2019 Impacted cerumen, bilateral ; Note: Date Diagnosed : 11/04/2019 2:58 PM (H61.23) Not Available formerly [facility] 4 02:59:50 Abnormal auditory perceptio n 55445151 Active 2019 Other abnormal auditory perceptio ns, bilateral ; Note: Date Diagnosed : 11/07/2019 8:19 AM (H93.293) Not Available formerly [facility] 4 02:59:52 Gastroeso phageal reflux disease without esophagit is 471742059 Active 2024 KATIE RAMIREZ MD [address] [place] [address],[place] [address], [place], [address] , [facility] - [facility] 5 11:52:25 Chronic sore throat 477660844 Active 2024 KATIE RAMIREZ MD [address] [place] [address],[place] [address], [place], [phone] , [facility] - [facility] 5 11:52:30 Chronic hoarsenes s 82683364445 05 Active 2024 KATIE RAMIREZ MD [address] [place] [address], [place], [address] , [facility] 11:52:38 Problem Notes None recorded. Procedures Surgical History Date Name Laterality Status Provider Name and Address Organization Details Recorded Time 02/10/2025 FFL_RE completed KATIE RAMIREZ MD [address] [facility],[place] [address], [place], [address], [facility] 02/10/2025 11:58:26 Imaging Results None recorded. Procedure Notes None recorded. Medical Equipment None Reported. Allergies Allergen ID Allergen Name Allergen Category Reaction Reaction Severity Criticality Documentation Date Start Date Code Code System Note Provider Name and Address Organization Details Recorded Time 445259 Bactrim medicatio n Not available Not available Not available 02/10/2025 07089 9 RxNorm Valorie delgadillo [facility] 5 11:37:07 244547 Dilaudid medicatio n Not available Not available Not available 02/10/2025 33591 3 RxNorm Valorie delgadillo [facility] 5 11:37:13 386540 Levaquin medicatio n Not available Not available Not available 02/10/2025 46361 2 RxNorm Valorie delgadillo [facility] 5 11:37:20 961203 ciproflox acin medicatio n Not available Not available Not available 09/06/2025 2551 RxNorm Not Available [employer] - prod 05:26:01 176734 amoxicill in / clavulana te medicatio n Not available Not available Not available 09/06/2025 12849 RxNorm Not Available [employer] - prod 05:26:01 362532 levofloxa raymundo medicatio n Not available Not available Not available 09/06/2025 69289 RxNorm Not Available [employer] - prod 5 05:26:01 809812 sulfameth oxazole / trimethop rim medicatio n Not available Not available Not available 09/06/2025 91625 RxNorm Not Available [facility] - [employer] - prod 5 05:26:01 938722 hydromorp heidy medicatio n Not available Not available Not available 09/06/2025 3423 RxNorm Not Available [employer] - External [employer] - prod 5 05:26:02 228330 Cipro medicatio n Not available Not available Not available 09/06/2025 99342 3 RxNorm Not Available [facility] External Data Service - [facility] 5 05:29:19 Medications Name Sig Start Date Stop Date [...] TABLET BY MOUTH TWICE A DAY NEEDED SKIN SYMPTOMS active Not Available Not Available [...] Available No t Available theophyll ine ER 300 mg tablet,ex tended release,1 2 hr TAKE 1 TABLET BY MOUTH EVERY 12 HOURS active Not Available Not Available No t [...] 1 mg tablet active Medicati on ID: [id number] D uration Value: 28 Brand Name: lorazepa [...] completed Not Available Not Available Not Available doxycycli ne hyclate 100 mg tablet TAKE 1 TABLET BY MOUTH TWICE A DAY FOR 7 DAYS 09/03 completed Not Available Not Available Not Available naproxen 500 mg tablet 02/10 completed Medicati on ID: [id number] D uration Value: 10 Brand Name: naproxen Send Method: E-Prescr ibed Sub s Allowed: subs OK Medic ationGen ericName : naproxen Not Available Not Available Not Available amoxicill in 875 mg-potass ium clavulana te 125 mg tablet TAKE 1 TABLET BY MOUTH TWICE A DAY FOR 14 DAYS active Not Available Not Available No t Available azithromy raymundo 500 mg tablet TAKE 1 TABLET BY MOUTH DAILY FOR 5 DAYS 02/10 completed Not Available Not Available Not Available eplerenon e 25 mg tablet TAKE 1 TABLET BY MOUTH EVERY DAY active Not Available Not Available No t Available Vitamin D3 25 mcg (1,000 unit) tablet TAKE 1 TABLET BY MOUTH EVERY DAY active Not Available Not Available No t Available duloxetin e 30 mg capsule,d elayed release TAKE 1 CAPSULE BY MOUTH TWICE A DAY active Not Available Not Available No t Available arformote rol 15 mcg/2 mL solution for nebulizat ion 2 ML INHALED EVERY 12 HOURS FOR 30 DAYS active Not Available Not [...] inhalatio n 02/10 completed Medicati on ID: [id number] D uration Value: 30 Brand Name: Incruse Ellipta Send Method: E-Prescr ibed Sub s Allowed: subs OK Medic ationGen ericName : Incruse Ellipta Not Available Not Available Not Available Breo Ellipta 200 mcg-25 mcg/dose powder for inhalatio n 02/10 completed Medicati on ID: [id number] D uration Value: 30 Brand Name: Breo Ellipta Send Method: E-Prescr ibed Sub s Allowed: subs OK Medic ationGen ericName : Breo Ellipta Not Available Not Available Not Available Entresto 49 mg-51 mg tablet TAKE 1 TABLET BY MOUTH TWICE A DAY active Not Available Not Available No t Available sacubitri l 24 mg-valsar dowling 26 mg tablet TAKE 1/2 TABLET BY MOUTH TWICE A DAY active Not Available Not Available No t Available Yupelri 175 mcg/3 mL solution for nebulizat ion INAHLE 3ML BY MOUTH DAILY FOR 30 DAYS active Not Available Not [...] Details Last Updated DateTime 02/10/2025 157.48 cm 90382.6 g Valorie Rodriguez [place] [facility] 02/10/2025 11:36:58 Date Recorded Body height Body mass index (BMI) Body weight Provider Name and Address Organization Details Last Updated DateTime 06/07/2025 157.48 cm 24 kg/m2 66377.6 g Kristinstephen Zhao [place] - [facility] 06/07/2025 11:06:06 Social History None recorded. Functional Status None recorded. Mental Status None recorded. Family History Nothing Reported. Medical History Condition Response Heart Problems Y Arthritis Y Heart Attack (SC) Y Cancer Y Past Encounters Encounter ID Performer Location Encounter Start Date Encounter Closed Date Diagnosis/Indication Diagnosis SNOMED-CT Code Diagnosis ICD10 Code Diagnosis IMO Codes Diagnosis Note [id number] KATIE RAMIREZ MD [facility] of [facility] on [address] [place] [phone] 02/10/2025 11:00:01 02/10/2025 11:57:58 Gastroesophageal reflux disease without esophagitis [id number] K21.9 Exam was benign. Laryngosco py showed [place]bl[place] ing. I feel the symptoms are likely due to extra esophageal reflux disease. We will begin a six-week trial of omeprazole which was sent to their pharmacy. We will plan a follow up in 3-4 months to reassess. Chronic sore throat 2754 04651 J31.2 See above Chronic hoarseness 87486 15603 105 R49.0 See above [id number] KATIE RAMIREZ MD [facility] of [facility] on [address] [place] [phone] 06/07/2025 10:52:56 06/07/2025 11:33:13 Gastroesophageal reflux disease without esophagitis 141763331 K21.9 I recommend he stop omeprazole as he did not benefit in terms of his throat symptoms.. Chronic sore throat 2754 25715 J31.2 Etiology unclear. Unlikely to be LPR as he did not benefit from omeprazole . I recommend a CT of the neck with contrast to occlude occult pathology. He will follow-up to review. Chronic hoarseness 62420 37792 105 R49.0 Etiology unclear. Unlikely to be [...] Member ID Cloud Member ID Guarantor Name 09/06/2025 1 [place]ICARE B-[place]: [employer] Aj Butt [id number] Aj Butt 09/06/2025 2 [place] [facility] Paulino Butt [id number] Aj Butt Notes Date Note Type Note [...] industrial exposure. Denies heartburn. KATIE RAMIREZ MD [address] [place] [address], [phone], [place] - [facility] 02/10/2025 11:59:06 06/07/2025 text/html ROS as noted in the HPI He presented with chronic sore throat and hoarseness. He took omeprazole for 2 months without benefit. He continues to have intermittent sore throat and hoarseness. He denies postnasal drip and allergy. KATIE RAMIREZ MD [address] [place] [address],[address], [address], [place] [facility] 06/07/2025 11:30:31
== END 2025-09-25 15:10 | disposition home or self-care (01) ==
LOC: HO.HGS 14:28
PROVIDERS: PCP Internal Medicine; Visit Provider Surgery
DX: D17.1 Benign lipomatous neoplasm of skin and subcutaneous tissue of trunk (principal); M54.6 Pain in thoracic spine
CPT/HCPCS: 11402; 11403

== ENCOUNTER 2025-09-25 14:28 | Outpatient (REF) | payer MEDICARE, MEDICAID, SELFPAY ==
--- NOTE | ~2025-09-25 | XR_ITS ---
EXAMINATION: XR THORACIC SPINE CLINICAL INFORMATION: M54.6 - Pain in thoracic spine COMPARISON: Correlated to CT abdomen pelvis dated January 26, 2022. TECHNIQUE: AP lateral and swimmer's projection. FINDINGS: There is a compression fracture deformity at representing 60% volume loss in the vertebral bodies of the mid thoracic spine and likely T7 and T9. There is a percent compression deformity at T12. 40% compression deformity at L2 XR/XR thoracic spine 2V IMPRESSION: Multilevel old compression fracture deformities. Electronically signed by: González Goldsmith MD 09/25/2025 03:24 PM EST
== END 2025-09-25 14:29 | disposition home or self-care (01) ==
LOC: HO.LNP 14:28
PROVIDERS: PCP Internal Medicine; Visit Provider Surgery
DX: M54.6 Pain in thoracic spine (principal); D17.1 Benign lipomatous neoplasm of skin and subcutaneous tissue of trunk
CPT/HCPCS: 11402; 11403; 72070; 88304

== ENCOUNTER → 2025-09-25 15:08 | Outpatient (BNV) | payer MEDICARE, MEDICAID, SELFPAY | PROVIDERS: PCP Internal Medicine; Visit Provider Radiology Diagnostic Radiology | DX: M54.6 Pain in thoracic spine (principal) | CPT/HCPCS: 72070 ==

== ENCOUNTER 2025-10-02 10:56 | Outpatient (AMB) | payer MEDICARE, MEDICAID, SELFPAY ==
--- NOTE | 2025-10-02 10:58 | A.OFFVIS_ITS ---
Vital Signs 10/02/25 11:03 Height 5 ft 4 in Weight 112 lb 6.972 oz BMI 19.3 BP 120/80 Blood Pressure Location Lt brachial Position Sitting Intake Visit Reasons: s/p excise multiple lipoms Intake Note: Patient is seen in office for follow up visit, post excision of multiple lesions of the back. Pt c/o: denies any concerns, sutures removed at visit Enterprise Resource Analyst Required: No Accompanied by: Self / Same As Patient Allergies ciprofloxacin (From Cipro) Allergy (Severe, Verified 10/02/25 11:03) Redness on Face levofloxacin (From Levaquin) Allergy (Severe, Verified 10/02/25 11:03) Swelling in the Joints hydromorphone (From Dilaudid) Adverse Reaction (Intermediate, Verified 10/02/25 11:03) Anxiety bactrim Adverse Reaction (Severe, Uncoded 10/02/25 11:03) Nausea HPI Comments Details: Patient returns for wound check following excision of 2 painful lipomas. Pathology confirmed the lipoma at both the left anterior chest and upper midback. He also underwent a spine x-ray which confirmed multiple levels of compression fractures in the thoracic and lumbar spine. Images were reviewed with the patient which correspond to the site of is back pain. I recommended he discuss further management with his primary care physician. [facility] Medical History ALOK (obstructive sleep apnea) Infection due to human metapneumovirus (hMPV) Human metapneumovirus (hMPV) pneumonia Transient global amnesia Chronic respiratory failure Pleuritic chest pain Pre-op chest exam Chondrocalcinosis Chronic neck and back pain Asthma Asthma-COPD overlap syndrome Asthma FH: bowel obstruction Bronchitis Pulmonary nodules Back pain Dyspnea COPD (chronic obstructive pulmonary disease) Surgical History Hx of colonoscopy History of esophagogastroduodenoscopy (EGD) History of partial colectomy History of hernia repair History of lung biopsy Family History Mother History of lung cancer Social History Household Members: Spouse and Caregiver Household Members Other:: son, daughter, dog, 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 Housing: House Do you presently have visiting nurse or other home services: No (receptionist nurse now only) Alcohol intake: former Patient Tobacco Use Status: Former Tobacco user Tobacco use type: Cigarette Cigarette Packs Per Day: 1 Cigarettes Per Day: 20.0 Years Smoked: 8 Second Hand Smoke Exposure: No Substance Use Type: Caffiene service: No Current occupational status: disabled Review of Systems Const All systems reviewed & are unremarkable except as noted in HPI and below Physical Exam Vital Signs: Last Vital Signs BP 120/80 10/02/25 11:03 BMI result Body Mass Index 19.3 Const General: no acute distress Nutritional Appearance: thin Orientation/consciousness: patient oriented x3 Chest Other: Excision site in the left anterior chest is clean, dry, and intact. Sutures removed and wounds found to be well healed. Resp Effort & Inspection: normal respiratory effort Back/Spine/Pelvis Other: Upper back incision is clean, dry, and intact. Sutures were removed and wounds found to be well healed. Neuro General: patient oriented x3 Extrem General: Yes no clubbing, cyanosis or edema Assessment & Plan Assessment & Plan (1) Lipoma: Code(s): D17.9 - Benign lipomatous neoplasm, unspecified Category: Medical Qualifiers: Lipoma location: trunk Qualified Code(s): D17.1 - Benign lipomatous neoplasm of skin and subcutaneous tissue of trunk Plan Patient returns 1 week following excision of 2 lipomas as noted above. He tolerated the procedure well his wounds are healing nicely. I also reviewed the findings of the spinal x-rays and suggested he follow up with Dr. Muller regarding further management. He may benefit from evaluation by spine surgery. Coding Level of Care Code Global (41228) Diagnoses Lipoma of torso D17.1 Lipoma location: trunk
[2025-10-02 11:03] VITALS: BP 120/80; BMI 19.3
== END 2025-10-02 11:44 | disposition home or self-care (01) ==
LOC: HO.HGS 10:57
PROVIDERS: PCP Internal Medicine; Visit Provider Surgery
DX: D17.1 Benign lipomatous neoplasm of skin and subcutaneous tissue of trunk (principal)
CPT/HCPCS: 99024

== ENCOUNTER → 2025-10-02 10:56 | Outpatient (BNVA) | payer MEDICARE, MEDICAID, SELFPAY | PROVIDERS: PCP Internal Medicine; Visit Provider Surgery | DX: Z48.02 Encounter for removal of sutures (principal); Z98.890 Other specified postprocedural states; D17.1 Benign lipomatous neoplasm of skin and subcutaneous tissue of trunk | CPT/HCPCS: 99212 ==

== ENCOUNTER 2025-10-09 10:45 | Outpatient (REF) | payer MEDICARE, MEDICAID, SELFPAY ==
--- NOTE | ~2025-10-09 | XR_ITS ---
EXAMINATION: XR CHEST 2 VIEWS HISTORY: J18.9 - Pneumonia, unspecified organism COMPARISON: Comparison is made with the prior examination dated 03/20/2025. FINDINGS: PA and lateral views of the chest are submitted. The lungs remain hyperinflated, consistent with COPD. There is scarring in the right midlung zone and at the right lung base. There are no focal airspace opacities. There is no pleural effusion, pneumothorax, or pulmonary vascular congestion. The heart is normal in size. There are multiple old healed bilateral rib fractures. Compression deformities of multiple thoracic vertebral bodies are unchanged from a prior study dated 01/03/2025. XR/XR chest 2V IMPRESSION: COPD. No acute cardiopulmonary abnormality. Electronically signed by: Champ Pino MD 10/09/2025 12:39 PM ANIL
== END 2025-10-09 10:46 | disposition home or self-care (01) ==
LOC: HO.XRAY 10:45
PROVIDERS: Visit Provider Hospitalist
DX: J18.9 Pneumonia, unspecified organism (principal)
CPT/HCPCS: 71046

== ENCOUNTER → 2025-10-09 10:50 | Outpatient (BNV) | payer MEDICARE, MEDICAID, SELFPAY | PROVIDERS: Visit Provider Radiology Diagnostic Radiology | DX: J18.9 Pneumonia, unspecified organism (principal); J44.9 Chronic obstructive pulmonary disease, unspecified | CPT/HCPCS: 71046 ==

== ENCOUNTER 2025-10-10 10:47 | Outpatient (AMB) | payer MEDICARE, MEDICAID, SELFPAY ==
[2025-10-10 10:52] VITALS: BP 128/74; PULSE 110; O2SAT 93; BMI 19.9
--- NOTE | 2025-10-10 10:52 | MHC.OFFVIS ---
Vital Signs 10/10/25 10:52 Height 5 ft 4 in Weight 115 lb 11.883 oz BMI 19.9 BP 128/74 Blood Pressure Location Lt brachial Position Sitting Pulse 110 H Pulse Source Pulse Oximeter Pulse Oximetry (%) 93 Oxygen Delivery Method Room Air Intake Visit Reasons: COPD/Sick Visit Research Neuropsychologist Required: No Manager Port: Manager Port offered & declined Accompanied by: Spouse Allergies ciprofloxacin (From Cipro) Allergy (Severe, Verified 10/10/25 10:55) Redness on Face levofloxacin (From Levaquin) Allergy (Severe, Verified 10/10/25 10:55) Swelling in the Joints hydromorphone (From Dilaudid) Adverse Reaction (Intermediate, Verified 10/10/25 10:55) Anxiety bactrim Adverse Reaction (Severe, Uncoded 10/02/25 11:03) Nausea HPI Comments Details: The patient is a 65-year-old man with a known history of asthma COPD overlap syndrome. Patient states that he had been sick with his respiratory issues for the last 10 years. He was initially diagnosed with pneumonia. He has had bronchoscopies and also apparently a biopsy in the past. I cannot find the results at [facility]. He has also gone to [place] for further evaluation. He has been on oxygen for his respiratory failure. Currently using inogen. He has had multiple hospitalizations usually add [facility]. He also goes to [facility]. He has had multiple CT scans done for his pulmonary nodules. His last CT scan was done at [facility]. He has been on nebulized therapy as the inhalers have not been effective for him. He recently finished a prednisone taper. He states that his breathing has been a little bit more labored. Moderate severity. The weather has not helped either. He states that he quit smoking many years ago. 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 We did review a CT scan of the chest from 2015 from [facility] demonstrating areas of attenuation, ground-glass opacities along with moderate emphysema. He was asking about the xypher valves and see if he was a candidate for them. 12/23/2022 The patient is here for a hospital follow up visit. He was admitted to [facility] with acute on chronic hypoxic and hypercarbic respiratory failure. He was noted to have CM with acute CHF, EF 15%. Cardiac meds adjusted. PLaced on diuresis. Required BIPAP, although has a hard time tolerating the BIPAP. We did talk about the improtance of non invasive ventilator if he has any evicence of hypercarbia. He was taken off the prednisone and he has been doing ok and he was also taken off the theophylline. HE was placed on digoxin and Entresto, but did not tolerate the entrsto and was changed to an PATRICIA inhibitor which he is tolerating better. He was also treated got a GI infection. We are requesting the discharge summary at this time. 01/08/2023 the patient is here for pulmonary follow-up visit. He continues to have increased work of breathing. He has a maximal respiratory therapy. Had to come off the theophylline because of his other comorbidities. Is based on the very severe COPD and chronic respiratory failure along with his recent admission with hypercarbic respiratory failure to the hospital will start the patient on noninvasive ventilator. The noninvasive ventilator will help him with improving his gas exchange, improved his prognosis and decrease hospitalizations. 03/17/2023 the patient is here for pulmonary follow-up visit. The patient is feeling a lot better. He is working closely with his cardiac status. He is improving and therefore his respiratory status is improving as well. He feels a lot stronger. He is going to have a repeat echocardiogram and may indeed need a defibrillator if his EF continues to be low. In the meantime the patient did get a noninvasive ventilator. Unfortunately tried multiple masks and cannot sleep with it he tried using it during the daytime he did not tolerated. At this point the patient does not want her continue using it. I did recommend he call the [facility] in order for them to pick it up since he is not using it. We will reassess in the future depending on his CO2 if it starts going up at that time if that is the case we will look into restarting noninvasive therapy. Regards pulmonary nodules he is due for CT scan in July. In addition to all this he is trying to wean off the opiates specially because he has had multiple complications because of the opiates including constipation. Will go ahead and refer him to the [facility] in order for him to look for alternative therapies in view of his severe chronic back and neck pain. This will help his respiratory status as well. 08/11/2023 the patient is here for pulmonary follow-up visit. He was recently seen for a COPD exacerbation. He was evaluated back the end of July he was placed on Vantin and also prednisone he did not take prednisone. The is still coughing although the cough is better less productive is still not gain. Moderate severity. The patient did have a chest x-ray without any acute disease at that time. He continues with respiratory therapy. His cardiac status is stable. He has a hard time expectorating. He does have a flutter valve. I did encourage him for him to use it. The patient will go ahead and start Bactrim. If he still having a productive cough I did provide him with sputum cup in order for him to provide. 11/13/2023 the patient is here for a pulmonary follow-up visit. He is finally feeling better. Overall in a much better health state. He has been continue to use his cardioprotective medications and seems to be feeling better from the standpoint. He did recently have an echocardiogram he does not know the results. I am hopeful that his EF has gotten better. In addition to that he has no longer taking prednisone or antibiotics. He is regimen is back to his baseline. His breathing is well. He is using his oxygen with good effect. He continues his IVIG infusions every 4 weeks. The patient does have severe COPD based on his PFTs that he had back in July 2022. Now he has in a good place to start pulmonary rehabilitation. Therefore since it is close to [facility] will send a referral there. He can start rehab and close monitoring specially with underlying cardiac and pulmonary disease. After that he probably can do it on his own. 03/23/2024 the patient is here for a pulmonary follow-up visit. Overall the patient is doing a lot better. He has been stronger from the heart standpoint which is reassuring. He received respiratory medicines are also helping. He has been able to be off the oxygen which those were reassuring. Has multiple surgeries however that are pending. He is having hand surgery and also needs dental surgery and back surgery. Will go ahead and repeat his pulmonary function studies to assess his capacity. His last PFTs very significant for a very severe obstruction. Therefore he ended needs to understand that he is high risk for perioperative pulmonary complications. Therefore all the non invasive alternative options need to be looked into to see if surgery and anesthesia can be avoided altogether. Is surgery seeing only option then the patient is indeed medically optimized to undergo surgery. Will go ahead and repeat his PFTs. The patient is also having some slight discomfort right below the ribcage on the left. Pleuritic in nature. Likely musculoskeletal. I will have him get an x-ray. Also reproducible therefore could be musculoskeletal. The patient does not have any rash. He did get vaccinated for shingles. He will have an x-ray and if he has not getting better in the next several weeks he can always call so we can readdress it. 07/07/2024 the patient is here for a pulmonary follow-up visit. Overall he is doing well. He is staying active. His respiratory status are pretty much baseline. He is using the oxygen with activity with good effect. The patient also has been using all his nebulized therapy. He did require antibiotics several months ago. He did recover fully which is reassuring. He is starting to develop a respiratory illness at this time. Will make sure that he has proper medications available to start therapy if he worsens. He tends to worsen quickly. In the meantime he needs to undergo pulmonary function studies. We had had to cancel him because of lack of availability. But now which should be able to schedule them at this time. Therefore he will continue with current respiratory therapy will follow-up in 3 months after his PFTs. If he develops any worsening issues prior to that he will call for an earlier assessment. 08/24/2024 the patient is here for a pulmonary follow-up visit. Since we last spoke he was diagnosed with pneumonia. He had a CT scan a [facility]. Demonstrated basilar consolidations. In addition to that x-rays demonstrating the same. Left more than right. The patient did have a repeat chest x-ray here [place] about a week ago. I did review. Has not been officially read but I can not appreciate any airspace disease. The appears to be better this time. This is all reassuring. He did complete the antibiotics and he is completing course of prednisone. He did recently start the theophylline. We start him on low-dose. He is going to monitor closely for any cardiac adverse effects especially with his cardiac history. But at this point the patient does have advanced pulmonary disease will trying to provide him with optimize care. If however he can not tolerate theophylline he can stop it. Other options include other alternative respiratory medications that have become available. We also talked about Dupixent. Will go ahead and recheck his eosinophils to see if he is a candidate for that. in addition to that we did talk about lung volume reduction intervention. May be a good candidate for this. I will have him look into it to learn about it a little bit more. He continues to exercise regularly. will also have him get blood work including a blood gas. If his CO2 is elevated will going to talk about a noninvasive ventilator that would also help him with his advanced respiratory failure. The patient will follow-up in a couple months. He is scheduled to have PFTs soon. 10/06/2024 the patient has a telehealth visit today. He is on feeling well so therefore decided to stay home. The patient recently went to a and afterwards he was very tired. He denies any sick contacts at this time. Although he will monitor closely for any worsening symptoms. He continues to have frequent exacerbations and shortness of breath. He did undergo pulmonary function studies which we did review. He still has a very severe obstruction although slightly better than before although he seems to have worsening diffusing capacity. Likely this is resulting in a decreased respiratory reserve in worsening symptoms. The patient has been medically optimized. Will go ahead and see if he is a candidate for Dupixent. Therefore her come in and will can check his eosinophil count. In addition to that will go ahead and check a venous gas. The patient does have worsening respiratory failure so therefore may be a good candidate for noninvasive ventilator to help him with the work of breathing. Potentially decrease exacerbations and decrease hospitalizations. Therefore he will come in for the blood gas when he comes in for the blood work. In addition to that he may be a good candidate for Ohtuvayre this will provide additional bronchodilation of the airways and his limited state. This may provide some relief. The patient will return couple months and will at that point talk about lung volume reduction interventions as well as another option moving forward. 01/03/2025 the patient is here for a pulmonary follow-up visit. He has had a hard time breathing for the last several weeks. He has been taking 10 mg of prednisone that appears to be helping him. He has multiple exacerbations a year. For the last year he has had about 5 already where he has needed prednisone. Be a great candidate for Dupixent at this time. He has had elevated eosinophils up to 300. However, since he has been on prednisone is hard to measure. I will go ahead and see if we can get Dupixent cover for him in order to decrease his exacerbation improve his respiratory status in addition to that we did request Ohtuvayre nebulizer therapy but has not been approved as of yet. He continues right now with the prednisone for now. The patient also will be following up with Cardiology regarding the need for defibrillator. Once the patient is stable from a cardiac status the patient is interested in pursuing evaluation for lung transplantation. Not clear if he will need a heart lung transplantation if he qualifies. The patient also was diagnosed melanoma. That was biopsy-proven. Now he is going to undergo surgery and see the extent of it as well. If there is any evidence of any significant extension then we should try to facilitate a CT scan at an earlier time. Otherwise we can wait till the summer to follow-up after his last CT scan back in 06/07/2024. He did have a chest x-ray which I personally reviewed and demonstrates some interstitial changes, slightly more on the left hemithorax. 03/31/2025 the patient is here for a hospital follow-up visit. The patient was exposed to sick contacts in the home and started developing worsening respiratory complaints abdominal pain and tachycardia. He came into the [facility] ED. there he did swab positive for human metapneumovirus. During the hospital stay he started developing worsening tachycardia significant elevations in the blood pressure and also persistent abdominal pain. He was transferred to the ICU for a decompromise state with hypertensive urgency. He did develop a demand myocardial infarction based on the blood work. He did have an echocardiogram demonstrating an EF of 10-15%. Some akinetic wall abnormalities. 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 His cardiac medications were adjusted by Cardiology here. During the hospital stay the patient also had blood work done demonstrating significant hypercarbia consistent with acute on chronic respiratory failure. We did review his PFTs demonstrating a significantly decreased FEV1 and FVC consistent with very severe COPD. With his worsening work of breathing due to his COPD poor gas exchange he does carry a poor prognosis and high risk for rehospitalization. Therefore the patient will be a great candidate for noninvasive ventilator to improve his gas exchange improved his prognosis and decrease hospitalizations. Will work with a local [employer] company in order to get him started on a noninvasive ventilator such as the astral. The patient is agreeable at this time. He will continue to use his oxygen as prescribed. He will continue his current medicines. He is still weaning off the prednisone. I will send him additional prednisone. Will also keep him on some doxycycline for his immunodeficiency for prophylactic therapy. The patient follow-up in 6-8 weeks. If he has any worsening issues prior to that he will call for an earlier assessment. 05/31/2025 the patient is here for pulmonary follow-up visit. The patient continues to be dyspneic. Also complains of chest congestion and cough. Moderate to severe. He is following closely also with Cardiology. The patient start the noninvasive ventilator. Appears to be very helpful. He has been using it in his taken away some of the work of breathing. Although his insurance company requiring additional blood work. He has very severe COPD and increased work of breathing and a noninvasive ventilator will be very effective for him to help him with his work of breathing. He continues use her respiratory therapy. He has not received the Ohtuvayre as of yet. Still waiting for that. The meantime he is taking prednisone. Will go ahead and taper him from 20 mg to 10 mg every other day. 10/10/2025 the patient is here for sick visit. He has been sick now for about 3 days. Flu-like symptoms. Worsening cough nausea fatigued. We did swab him for flu and was positive for flu A. Negative for RSV and also negative for COVID 19. The patient does have rhonchi on exam. Complains of chest congestion. Cough. Moderate severity. We did do a chest x-ray demonstrating hyperinflation of the lungs consistent with his COPD. No evidence of any acute airspace disease. The patient will be started on prednisone taper in addition to doxycycline Tamiflu. If he worsens he can also start Augmentin. He is wondering about lung volume reduction intervention. The patient is high risk for any procedure due to his cardiomyopathy. Will discuss this further during his next visit. [facility] Medical History (Updated 10/10/25 @ 19:01 by Paulino Ba MD) Viral syndrome ALOK (obstructive sleep apnea) Infection due to human metapneumovirus (hMPV) Human metapneumovirus (hMPV) pneumonia Transient global amnesia Chronic respiratory failure Pleuritic chest pain Pre-op chest exam Chondrocalcinosis Chronic neck and back pain Asthma Asthma-COPD overlap syndrome Asthma FH: bowel obstruction Bronchitis Pulmonary nodules Back pain Dyspnea COPD (chronic obstructive pulmonary disease) Surgical History Hx of colonoscopy History of esophagogastroduodenoscopy (EGD) History of partial colectomy History of hernia repair History of lung biopsy Family History Mother History of lung cancer Social History Household Members: Spouse and Caregiver Household Members Other:: 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, daughter, 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, 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 Housing: House Do you presently have visiting nurse or other home services: No (analyst now only) Alcohol intake: former Patient Tobacco Use Status: Former Tobacco user Tobacco use type: Cigarette Cigarette Packs Per Day: 1 Cigarettes Per Day: 20.0 Years Smoked: 8 Second Hand Smoke Exposure: No Substance Use Type: Caffiene service: No Current occupational status: disabled Review of Systems Const Reports body aches, Reports chills, Reports fatigue, Reports fever(s), Reports headache(s) and Denies night sweats ENT Reports Normal hearing present, Denies change in voice, Reports headache(s), Denies lip swelling, Denies mouth pain, Reports nasal congestion, Reports nasal discharge, Reports neck pain and Denies tongue swelling Card Denies chest pain, Reports dyspnea and Reports dyspnea on exertion Resp Denies change in phlegm color, Reports chest congestion, Reports cough, Denies hemoptysis, Denies excessive phlegm production, Denies pain on inspiration, Reports dyspnea, Reports dyspnea on exertion and Reports wheezing GI Denies abdominal pain Musc Denies no additional complaints, Reports back pain and Reports neck pain Skin/Breast Reports lesions Neuro Reports Normal hearing present, Denies Neuro-related abnormal movements and Reports headache(s) Psych Denies no additional complaints Endo Reports fatigue Marcel/Lymph Denies easy bleeding and Denies lymphadenopathy Aller/Immun Denies lip swelling, Denies tongue swelling and Reports wheezing Physical Exam Vital Signs: Last Vital Signs Pulse 110 H 10/10/25 10:52 BP 128/74 10/10/25 10:52 Pulse Ox 93 10/10/25 10:52 Oxygen Delivery Method Room Air 10/10/25 10:52 BMI result Body Mass Index 19.9 Last Vital Signs Temp 98.1 F 03/19/25 20:05 Pulse 118 H 03/19/25 20:05 Resp 25 H 03/19/25 20:05 BP 125/83 03/19/25 20:05 Pulse Ox 94 03/19/25 20:05 O2 Del Method Nasal Cannula 03/19/25 20:05 O2 Flow Rate 3 03/19/25 20:05 BMI result Body Mass Index 23.0 Const Orientation/consciousness: patient oriented x3 Neck Neck: Yes normal visual inspection Chest Chest palpation & inspection: normal inspection of the chest Resp Effort & Inspection: normal respiratory effort and prolonged expiratory phase Auscultation: wheezes and diminished lung sounds Cardio Heart sounds: S1 normal heart sound present and S2 normal heart sound present GI Palpation (GI): Soft to palpation Skin General skin exam: no rashes or lesions noted Neuro General: patient oriented x3 Cranial nerves: Yes Normal hearing present Extrem Right upper extremity: no cyanosis Assessment & Plan Assessment & Plan (1) Influenza A: Code(s): J10.1 - Influenza due to other identified influenza virus with other respiratory manifestations Category: Medical (2) COPD (chronic obstructive pulmonary disease): Comment: very severe Code(s): J44.9 - Chronic obstructive pulmonary disease, unspecified Category: Medical Qualifiers: COPD type: COPD with acute exacerbation Qualified Code(s): J44.1 - Chronic obstructive pulmonary disease with (acute) exacerbation (3) Chronic respiratory failure: Code(s): J96.10 - Chronic respiratory failure, unspecified whether with hypoxia or hypercapnia Category: Medical Qualifiers: Respiratory failure complication: hypoxia Qualified Code(s): J96.11 - Chronic respiratory failure with hypoxia (4) ALOK (obstructive sleep apnea): Code(s): G47.33 - Obstructive sleep apnea (adult) (pediatric) Category: Medical (5) Dyspnea: Code(s): R06.00 - Dyspnea, unspecified Category: Medical Qualifiers: Dyspnea type: dyspnea on exertion Qualified Code(s): R06.00 - Dyspnea, unspecified (6) Pulmonary nodules: Code(s): R91.8 - Other nonspecific abnormal finding of lung field Category: Medical (7) Back pain: Comment: neck pain and lower back pain due to likely degenerative disc disease. Not a surgical candidate at this time due to his severe COPD Code(s): M54.9 - Dorsalgia, unspecified Category: Medical Qualifiers: Back pain laterality: unspecified Back pain location: low back pain Chronicity: chronic Sciatica presence: unspecified whether sciatica present Qualified Code(s): M54.5 - Low back pain; G89.29 - Other chronic pain (8) Cardiomyopathy: Code(s): I42.9 - Cardiomyopathy, unspecified Category: Medical Qualifiers: Cardiomyopathy type: unspecified Qualified Code(s): I42.9 - Cardiomyopathy, unspecified (9) Asthma-COPD overlap syndrome: Code(s): J44.9 - Chronic obstructive pulmonary disease, unspecified Category: Medical (10) Melanoma: Code(s): C43.9 - Malignant melanoma of skin, unspecified Category: Medical Qualifiers: Melanoma location: overlapping sites Qualified Code(s): C43.8 - Malignant melanoma of overlapping sites of skin Plan start Tamiflu start Doxycycline start Prednisone taper diuresis as tolerated Continue respiratory therapy: Daliresp, Brovana, Yulperi Ohtuvayre nebs ? Dupixent, with frequest exercerbations RAFAELA as needed continue oxygen 2 L with activity. He does use a POC for portability outside of the home ([employer]) CPT with Acapella valve. Theophylline low dose continue prednisone 10mg daily for now continue non invasive ventilator, very severe COPD with increase work of breathing consider referral to [facility] transplant center, for now needs to continue addressing cardiac issues and new skin cancer. follow-up in 2 months Orders: Orders UA and rflx microscopic Today B34.9 - Viral infection, unspecified, G89.29 - Other chronic pain, M54.5 - Low back pain Liver Panel Today B34.9 - Viral infection, unspecified, G89.29 - Other chronic pain, M54.5 - Low back pain Venous Blood Gas Today B34.9 - Viral infection, unspecified, G89.29 - Other chronic pain, M54.5 - Low back pain SARS-CoV2/FLU/RSV Today B34.9 - Viral infection, unspecified, G89.29 - Other chronic pain, M54.5 - Low back pain Basic Metabolic Panel Today B34.9 - Viral infection, unspecified, G89.29 - Other chronic pain, M54.5 - Low back pain Complete Blood Count Auto Diff Today B34.9 - Viral infection, unspecified, G89.29 - Other chronic pain, M54.5 - Low back pain Immunoglobulin E Today B34.9 - Viral infection, unspecified, G89.29 - Other chronic pain, M54.5 - Low back pain Medications: New prednisone PO daily; Take 6 tabs daily x 3 days, then 5 tabs x 3 days, then 4 tabs x 3 days, then 3 tabs x 3 days, then 2 tabs daily x 3 days, then 1 tab x 3 days to complete. 63 tabs 0RF 18 days doxycycline hyclate 100 mg PO BID 20 caps 0RF 10 days oseltamivir (Tamiflu) 75 mg PO BID 10 caps 0RF 5 days Refilled amoxicillin-pot clavulanate 875-125 mg 1 tab PO BID 28 tabs 0RF 14 days Coding Level of Care Code Est Pt Level 4 (72041) Diagnoses Influenza A J10.1 Chronic obstructive pulmonary disease with acute exacerbation J44.1 COPD type: COPD with acute exacerbation Chronic respiratory failure with hypoxia J96.11 Respiratory failure complication: hypoxia ALOK (obstructive sleep apnea) G47.33 Dyspnea on exertion R06.00 Dyspnea type: dyspnea on exertion Pulmonary nodules R91.8 Chronic low back pain, unspecified back pain laterality, unspecified whether sciatica present M54.5; G89.29 Back pain laterality: unspecified Back pain location: low back pain Chronicity: chronic Sciatica presence: unspecified whether sciatica present Cardiomyopathy, unspecified type I42.9 Cardiomyopathy type: unspecified Asthma-COPD overlap syndrome J44.9 Malignant melanoma of overlapping sites C43.8 Melanoma location: overlapping sites Time Spent (min) 18
== END 2025-10-10 11:40 | disposition home or self-care (01) ==
LOC: HO.HPS 10:47
PROVIDERS: PCP Internal Medicine; Visit Provider Hospitalist
DX: J10.1 Influenza due to other identified influenza virus with other respiratory manifestations (principal); J44.1 Chronic obstructive pulmonary disease with (acute) exacerbation; J96.11 Chronic respiratory failure with hypoxia; G47.33 Obstructive sleep apnea (adult) (pediatric); R06.00 Dyspnea, unspecified; R91.8 Other nonspecific abnormal finding of lung field; M54.50 Low back pain, unspecified; G89.29 Other chronic pain; I42.9 Cardiomyopathy, unspecified; J44.9 Chronic obstructive pulmonary disease, unspecified; C43.8 Malignant melanoma of overlapping sites of skin
CPT/HCPCS: 99214

== ENCOUNTER 2025-10-10 11:38 | Outpatient (REF) | payer MEDICARE, MEDICAID, SELFPAY ==
[2025-10-10 12:27] LABS: Resp Syncy Virus RNA Qual PCR NEGATIVE (Negative); SARS COV2 PCR INHOUSE NEGATIVE (Negative)
== END 2025-10-10 11:39 | disposition home or self-care (01) ==
LOC: HO.LNP 11:38
PROVIDERS: Visit Provider Hospitalist
DX: J10.1 Influenza due to other identified influenza virus with other respiratory manifestations (principal); J44.1 Chronic obstructive pulmonary disease with (acute) exacerbation; J96.11 Chronic respiratory failure with hypoxia; G47.33 Obstructive sleep apnea (adult) (pediatric); R91.8 Other nonspecific abnormal finding of lung field; M54.50 Low back pain, unspecified; G89.29 Other chronic pain; I42.9 Cardiomyopathy, unspecified; C43.8 Malignant melanoma of overlapping sites of skin; B34.9 Viral infection, unspecified; Z79.899 Other long term (current) drug therapy
CPT/HCPCS: 87637